=== PATIENT | male | born 1940 | race Hispanic/Latino ===

== ENCOUNTER 2016-11-02 10:22 | Inpatient (IN) | payer MEDICARE, MEDICAID ==
--- NOTE | 2016-11-02 11:27 | C.PDOC ---
History Of Present Illness 76 yo male w/PMHx of TIA, COPD, Seizure ds, dementia, unstable angina, transfer from [facility] [place] for evaluation of Right foot redness, swelling, chronic ulceration. As per transfer paper, direct admission to s/o . Unable to get any history on present illness from patient due to dementia. Although, pt appears awake, c/o mild Right foot pain. Time Seen by Provider: 11/02/16 10:54 Chief Complaint (Nursing): Abnormal Skin Integrity History Per: EMS, Other ([facility] transfer paper) Past Medical History Reviewed: Historical Data, Nursing Documentation, Vital Signs Vital Signs: Last Vital Signs Temp 98 F 11/02/16 16:00 Pulse 96 H 11/02/16 16:00 Resp 18 11/02/16 16:00 BP 94/69 L 11/02/16 16:00 Pulse Ox 97 11/02/16 16:00 - Medical History PMH: Asthma, COPD, Dementia, Pneumonia, Seizures, TIA Denies: Chronic Kidney Disease Family History: States: Unknown Family Hx - Social History Hx Alcohol Use: No Hx Substance Use: No - Immunization History Hx Tetanus Toxoid Vaccination: No Hx Influenza Vaccination: No Hx Pneumococcal Vaccination: No Review Of Systems Review Of Systems: ROS cannot be obtained secondary to pt's inabilty to answer questions. (dementia) Physical Exam - Physical Exam Appears: Well, Non-toxic, No Acute Distress Skin: Warm, Dry, Other (Right foot: diffuse edema and erythema with mild nos edema of dorsal asepct. Chronic appearence ulcers to Right 2nd,4th toes. Scant discahrges noted from web between Right 4th and 5th toes.) Head: Normacephalic Eye(s): bilateral: PERRL Nose: No Flaring Oral Mucosa: Moist, No Drooling Neck: Supple Cardiovascular: Rhythm Regular Respiratory: No Decreased Breath Sounds, No Accessory Muscle Use, No Stridor, No Wheezing Gastrointestinal/Abdominal: Soft, No Tenderness, No Distention, No Guarding Extremity: Capillary Refill (less than 2sec to B/L LEs.), No Deformity, Other (B /L LEs muscle wasting, mild rigidity to Right leg) Neurological/Psych: Other (non-compliant) ED Course And Treatment - Laboratory Results Result Diagrams: 11/02/16 14:44 11/02/16 14:44 Lab Interpretation: No Acute Changes O2 Sat by Pulse Oximetry: 98 Pulse Ox Interpretation: Normal Progress Note: Case discussed with and admission accepted. Disposition - Disposition Disposition: HOSPITALIZED Disposition Time: 15:15 Condition: STABLE - Clinical Impression Clinical Impression: Cellulitis, PVD (peripheral vascular disease)
[2016-11-02 14:52] LABS: BASO # 0.1 K/uL (0.0-0.2); BASO % 0.7 % (0.0-2.0); EOS # 0.1 K/uL (0.0-0.7); EOS % 1.6 % (0.0-4.0); HEMOGLOBIN 13.5 g/dL (12.0-18.0); LYMPH # 2.4 K/uL (1.0-4.3); LYMPH % 29.3 % (20.0-40.0); MEAN CORPUSCULAR HGB CONC 32.4 g/dL (33.0-37.0); MEAN PLATELET VOLUME 6.7 fL (7.2-11.7); MONO # 1.9 K/uL (0.0-0.8); MONO % 23.4 % (0.0-10.0); NEUT # 3.7 K/uL (1.8-7.0); RBC 4.83 Mil/uL (4.40-5.90); RED CELL DISTRIBUTION WIDTH 14.3 % (11.5-14.5)
[2016-11-02 14:59] LABS: WHITE BLOOD COUNT 8.1 K/uL (4.8-10.8)
[2016-11-02 15:00] LABS: GFR AFRICAN-AMERICAN > 60; GFR NON-AFRICAN AMERICAN > 60; MEAN CELL VOLUME 86.4 fL (80.0-94.0); PLATELET COUNT 240 K/uL (130-400)
[2016-11-02 15:01] LABS: BLOOD UREA NITROGEN 9 mg/dL (9-20); CALCIUM 8.3 mg/dl (8.6-10.4)
[2016-11-02 15:12] LABS: CARBAMAZEPINE < 3.0 ug/mL (4.0-12.0)
[2016-11-02 15:15] LABS: VALPROIC ACID < 10.0 ug/mL (50.0-100.0)
[2016-11-02 15:23] LABS: LYMPHOCYTE 25 % (20-40); MONOCYTE 14 % (0-10); NEUTROPHIL 61 % (50-75); TOTAL CELLS COUNTED 100
[2016-11-02 15:24] LABS: PLATELET ESTIMATE NORMAL (NORMAL)
[2016-11-02] MEDS ORDERED: Magnesium Hydroxide Susp 30 ml UD PO PRN (17:21)
[2016-11-02] MEDS ORDERED: Sodium Chloride 0.9% 1,000 ML IV SCH (17:30)
[2016-11-02] MEDS: Valproic Acid 250 mg/5 ml UD Cup PO SCH ×2 (19:13→22:22)
[2016-11-02] MEDS: Sodium Chloride 0.9% 1,000 ML IV SCH (19:15)
[2016-11-02] MEDS: carBAMazepine 100 mg/5 ml Oral Susp (450 ml) PO SCH (19:15)
[2016-11-02] MEDS: Piperacill/Tazo 3.375gm in Dex 3.375 GM/50 ML BAG IVPB SCH (19:16)
--- NOTE | 2016-11-02 20:57 | CP.PCM.CON ---
History of Present Illness - History of Present Illness History of Present Illness: Consulted for Pre Op cardiac ECHO and EKG ordered Past Patient History - Infectious Disease Hx of Infectious Diseases: None - Past Medical History & Family History Past Medical History?: Yes - Past Social History Smoking Status: Never Smoked - CARDIAC Hx Cardiac Disorders: Yes Hx Angina: Yes Other/Comment: ischemia. Hx of severe PVD. cellulitis of RLE s/p angiogram. ischemic heart disease - PULMONARY Hx Asthma: Yes Hx Chronic Obstructive Pulmonary Disease (COPD): Yes Hx Pneumonia: Yes - NEUROLOGICAL Hx Dementia: Yes Hx Seizures: Yes Hx Transient Ischemic Attacks (TIA): Yes - HEENT Hx HEENT Problems: Yes Other/Comment: RT EYELID DROOP - RENAL Hx Chronic Kidney Disease: No - ENDOCRINE/METABOLIC Hx Endocrine Disorders: No - HEMATOLOGICAL/ONCOLOGICAL Hx Blood Disorders: No - INTEGUMENTARY Hx Dermatological Problems: No - MUSCULOSKELETAL/RHEUMATOLOGICAL Hx Musculoskeletal Disorders: Yes Hx Falls: Yes Hx Unsteady Gait: Yes - GASTROINTESTINAL Hx Gastrointestinal Disorders: No - GENITOURINARY/GYNECOLOGICAL Hx Genitourinary Disorders: Yes Hx Incontinence: Yes - PSYCHIATRIC Hx Substance Use: No - SURGICAL HISTORY Hx Surgeries: No Other/Comment: angiogram sometime in 2017 - ANESTHESIA Hx Anesthesia: Yes Hx Anesthesia Reactions: No Hx Malignant Hyperthermia: No Meds Allergies/Adverse Reactions: Allergies Allergy/AdvReac Type Severity Reaction Status Date / Time No Known Allergies Allergy Verified 11/02/16 10:46 - Medications Medications: Current Medications Bisacodyl (Dulcolax) 10 mg RC PRN PRN PRN Reason: Constipation Carbamazepine (Tegretol) 100 mg PO TID [facility] Last Admin: 11/02/16 19:15 Dose: 100 mg Docusate Sodium (Colace) 200 mg PO DAILY [facility] Heparin Sodium (Porcine) (Heparin) 5,000 units SC Q12 [facility] Sodium Chloride (Sodium Chloride 0.9%) 1,000 mls @ 80 mls/hr IV .[id number] [facility] Last Admin: 11/02/16 19:15 Dose: 80 mls/hr Piperacillin Sod/Tazobactam Sod (Zosyn 3.375 Gm Iv Premix) 3.375 gm in 50 mls @ 100 mls/hr IVPB Q6H [facility] Last Admin: 11/02/16 19:16 Dose: 100 mls/hr Magnesium Hydroxide (Milk Of Magnesia) ml PO PRN PRN PRN Reason: Constipation Rosuvastatin Calcium (Crestor) 5 mg PO HS [facility] Valproate Sodium (Depakene Oral Soln) 250 mg PO QID [facility] Last Admin: 11/02/16 19:13 Dose: 250 mg Results - Vital Signs Recent Vital Signs: Last Vital Signs Temp 98 F 11/02/16 16:00 Pulse 96 H 11/02/16 16:00 Resp 18 11/02/16 16:00 BP 94/69 L 11/02/16 16:00 Pulse Ox 98 11/02/16 19:09 - Labs Result Diagrams: 11/02/16 14:44 11/02/16 14:44 Labs: Laboratory Results - last 24 hr 11/02/16 11/02/16 11/02/16 14:44 14:44 14:44 WBC 8.1 D RBC 4.83 Hgb 13.5 Hct 41.7 MCV 86.4 D MCH 28.0 MCHC 32.4 L RDW 14.3 Plt Count 240 D MPV 6.7 L Neut % (Auto) 45.0 L Lymph % (Auto) 29.3 [place] % (Auto) 23.4 H Eos % (Auto) 1.6 Baso % (Auto) 0.7 Neut # 3.7 Lymph # 2.4 [place] # 1.9 H Eos # 0.1 Baso # 0.1 Neutrophils % (Manual) 61 Lymphocytes % (Manual) 25 Monocytes % (Manual) 14 H Platelet Estimate Normal RBC Morphology Normal Sodium 139 Potassium 3.8 Chloride 99 Carbon Dioxide 27 Anion Gap 17 BUN 9 Creatinine 0.6 L Est GFR ( Amer) > 60 Est GFR (Non-Af Amer) > 60 Random Glucose 89 Calcium 8.3 L Valproic Acid < 10.0 L Carbamazepine < 3.0 L
--- NOTE | 2016-11-02 21:03 | CP.PCM.CON ---
History of Present Illness - History of Present Illness History of Present Illness: Surgery: Dr. Sprague Reason for consult: PAD HPI: Patient is a 76 y/o male w/ pmhx of TIA, COPD, Seizure, severe dementia, unstable angina, PAD, bed bound and contracted who [facility] for worsening redness and swelling in the right foot. Patient known to have chronic wounds on the RLE which have been evaluated surgically in the past, about 1.5 years ago. Patient underwent CTA and arterial duplex which showed bilateral LE moderate to severe PAD. Patient was originally scheduled to undergo angio however was cancelled. History obtained from prior records due to severity of dementia. Patient nonverbal and does not respond to questioning. PMH: TIA, COPD, Seizure, severe dementia, unstable angina, PAD, bed bound and contracted PSH: unknown Social: permanent resident at [facility] Review of Systems - Review of Systems Systems not reviewed;Unavailable: Dementia Past Patient History - Infectious Disease Hx of Infectious Diseases: None - Past Medical History & Family History Past Medical History?: Yes - Past Social History Smoking Status: Never Smoked - CARDIAC Hx Cardiac Disorders: Yes Hx Angina: Yes Other/Comment: ischemia. Hx of severe PVD. cellulitis of RLE s/p angiogram. ischemic heart disease - PULMONARY Hx Asthma: Yes Hx Chronic Obstructive Pulmonary Disease (COPD): Yes Hx Pneumonia: Yes - NEUROLOGICAL Hx Dementia: Yes Hx Seizures: Yes Hx Transient Ischemic Attacks (TIA): Yes - HEENT Hx HEENT Problems: Yes Other/Comment: RT EYELID DROOP - RENAL Hx Chronic Kidney Disease: No - ENDOCRINE/METABOLIC Hx Endocrine Disorders: No - HEMATOLOGICAL/ONCOLOGICAL Hx Blood Disorders: No - INTEGUMENTARY Hx Dermatological Problems: No - MUSCULOSKELETAL/RHEUMATOLOGICAL Hx Musculoskeletal Disorders: Yes Hx Falls: Yes Hx Unsteady Gait: Yes - GASTROINTESTINAL Hx Gastrointestinal Disorders: No - GENITOURINARY/GYNECOLOGICAL Hx Genitourinary Disorders: Yes Hx Incontinence: Yes - PSYCHIATRIC Hx Substance Use: No - SURGICAL HISTORY Hx Surgeries: No Other/Comment: angiogram sometime in 2017 - ANESTHESIA Hx Anesthesia: Yes Hx Anesthesia Reactions: No Hx Malignant Hyperthermia: No Meds Allergies/Adverse Reactions: Allergies Allergy/AdvReac Type Severity Reaction Status Date / Time No Known Allergies Allergy Verified 11/02/16 10:46 - Medications Medications: Current Medications Bisacodyl (Dulcolax) 10 mg RC PRN PRN PRN Reason: Constipation Carbamazepine (Tegretol) 100 mg PO TID [facility] Last Admin: 11/02/16 19:15 Dose: 100 mg Docusate Sodium (Colace) 200 mg PO DAILY [facility] Heparin Sodium (Porcine) (Heparin) 5,000 units SC Q12 [facility] Sodium Chloride (Sodium Chloride 0.9%) 1,000 mls @ 80 mls/hr IV .[id number] [facility] Last Admin: 11/02/16 19:15 Dose: 80 mls/hr Piperacillin Sod/Tazobactam Sod (Zosyn 3.375 Gm Iv Premix) 3.375 gm in 50 mls @ 100 mls/hr IVPB Q6H [facility] Last Admin: 11/02/16 19:16 Dose: 100 mls/hr Magnesium Hydroxide (Milk Of Magnesia) ml PO PRN PRN PRN Reason: Constipation Rosuvastatin Calcium (Crestor) 5 mg PO HS [facility] Valproate Sodium (Depakene Oral Soln) 250 mg PO QID [facility] Last Admin: 11/02/16 19:13 Dose: 250 mg Physical Exam - Constitutional Appears: Cachectic, Chronically Ill - Head Exam Head Exam: ATRAUMATIC, NORMOCEPHALIC - ENT Exam ENT Exam: Mucous Membranes Dry - Respiratory Exam Respiratory Exam: absent: Respiratory Distress - Cardiovascular Exam Cardiovascular Exam: REGULAR RHYTHM. absent: Tachycardia - Extremities Exam Extremities exam: Negative for: calf tenderness Additional comments: extremities thin, skin pale. RLE erythematous changes up to ankle/forefoot with necrotic 2nd and 5th toe. No foul odor or drainage. - Psychiatric Exam Additional comments: demented - Skin Skin Exam: Erythema Results - Vital Signs Recent Vital Signs: Last Vital Signs Temp 98 F 11/02/16 16:00 Pulse 96 H 11/02/16 16:00 Resp 18 11/02/16 16:00 BP 94/69 L 11/02/16 16:00 Pulse Ox 98 11/02/16 19:09 - Labs Result Diagrams: 11/02/16 14:44 11/02/16 14:44 Labs: Laboratory Results - last 24 hr 11/02/16 11/02/16 11/02/16 14:44 14:44 14:44 WBC 8.1 D RBC 4.83 Hgb 13.5 Hct 41.7 MCV 86.4 D MCH 28.0 MCHC 32.4 L RDW 14.3 Plt Count 240 D MPV 6.7 L Neut % (Auto) 45.0 L Lymph % (Auto) 29.3 [place] % (Auto) 23.4 H Eos % (Auto) 1.6 Baso % (Auto) 0.7 Neut # 3.7 Lymph # 2.4 [place] # 1.9 H Eos # 0.1 Baso # 0.1 Neutrophils % (Manual) 61 Lymphocytes % (Manual) 25 Monocytes % (Manual) 14 H Platelet Estimate Normal RBC Morphology Normal Sodium 139 Potassium 3.8 Chloride 99 Carbon Dioxide 27 Anion Gap 17 BUN 9 Creatinine 0.6 L Est GFR ( Amer) > 60 Est GFR (Non-Af Amer) > 60 Random Glucose 89 Calcium 8.3 L Valproic Acid < 10.0 L Carbamazepine < 3.0 L Assessment & Plan - Assessment and Plan (Free Text) Assessment: 76 y/o male w/ PAD and 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 Sprague [facility] PGY3
--- NOTE | 2016-11-02 23:34 | CP.PCM.HP ---
History of Present Illness - History of Present Illness History of Present Illness: HPI: Patient is a 76 y/o male w/ pmhx of TIA, COPD, Seizure, severe dementia, unstable angina, PAD, bed bound and contracted who presents from custodial for worsening redness and swelling in the right foot. Patient known to have chronic wounds on the RLE which have been evaluated surgically in the past, about 1.5 years ago. Patient underwent CTA and arterial duplex which showed bilateral LE moderate to severe PAD. Patient was originally scheduled to undergo angio however was cancelled. History obtained from prior records due to severity of dementia. Patient nonverbal and does not respond to questioning. PMH: TIA, COPD, Seizure, severe dementia, unstable angina, PAD, bed bound and contracted PSH: unknown Social: [facility] [place] Present on Admission - Present on Admission Any Indicators Present on Admission: Yes Review of Systems - Review of Systems Systems not reviewed;Unavailable: Acuity of Condition - Constitutional Constitutional: Fatigue, Lethargy - EENT Nose/Mouth/Throat: absent: As Per HPI, Epistaxis, Nasal Congestion, Nasal Discharge, Nasal Obstruction, Nasal Trauma, Nose Pain, Post Nasal Drip, Sinus Pain, Sinus Pressure, Bleeding Gums, Change in Voice, Dental Pain, Dry Mouth, Dysphagia, Halitosis, Hoarsness, Lip Swelling, Mouth Lesions, Mouth Pain, Odynophagia, Sore Throat, Throat Swelling, Tongue Swelling, Facial Pain, Neck Pain, Neck Mass, Other - Cardiovascular Cardiovascular: Dyspnea on Exertion, Leg Ulcers - Respiratory Respiratory: absent: As Per HPI, Cough, Dyspnea, Hemoptysis, Dyspnea on Exertion , Wheezing, Snoring, Stridor, Pain on Inspiration, Chest Congestion, Excessive Mucous Production, Change in Mucous Color, Pain with Coughing, Other - Gastrointestinal Gastrointestinal: absent: As Per HPI, Abdominal Pain, Belching, Bloating, Change in Bowel Habits, Change in Stool Character, Coffee Ground Emesis, Constipation, Cramping, Diarrhea, Dyspepsia, Dysphagia, Early Satiety, Excessive Flatus, Fecal Incontinence, Heartburn, Hematemesis, Hematochezia, Loose Stools, Melena, Nausea, Odynophagia, Temesmus, Vomiting, Other - Genitourinary Genitourinary: absent: As Per HPI, Change in Urinary Stream, Difficulty Urinating, Dysuria, Flank Pain, Hematuria, Pyuria, Nocturia, Urinary Incontinence, Urinary Frequency, Urinary Hesitance, Urinary Urgency, Voiding Freq/Small Amts, Freq UTI, Hx Renal/Bladder Calculi, Hx /Renal Surgery, Bladder Distension, Other - Integumentary Integumentary: absent: As Per HPI, Acne, Alopecia, Bleeding Lesions, Change in Hair, Change in Nails, Change in Pigmentation, Changing Lesions, Dry Skin, Erythema, Furuncle, Hirsutism, Lesions, New Lesions, Non-Healing Lesions, Photosensitivity, Pruritus, Rash, Skin Pain, Skin Ulcer, Sores, Striae, Swelling , Unusual Bruising, Wounds, Jaundice, Other - Neurological Neurological: absent: As Per HPI, Abnormal Gait, Abnormal Hearing, Abnormal Movements, Abnormal Speech, Behavioral Changes, Burning Sensations, Confusion, Convulsions, Disequilibrium, Dizziness, Numbness, Focal Weakness, Frequent Falls , Headaches, Lack of Coordination, Loss of Vision, Memory Loss, Paresthesias, Radicular Pain, Restless Legs, Sensory Deficit, Syncope, Tingling, Tremor, Vertigo, Weakness, Other Visual Disturbances, Other Past Patient History - Infectious Disease Hx of Infectious Diseases: None - Past Medical History & Family History Past Medical History?: Yes - Past Social History Smoking Status: Never Smoked - CARDIAC Hx Cardiac Disorders: Yes Hx Angina: Yes Other/Comment: ischemia. Hx of severe PVD. cellulitis of RLE s/p angiogram. ischemic heart disease - PULMONARY Hx Asthma: Yes Hx Chronic Obstructive Pulmonary Disease (COPD): Yes Hx Pneumonia: Yes - NEUROLOGICAL Hx Dementia: Yes Hx Seizures: Yes Hx Transient Ischemic Attacks (TIA): Yes - HEENT Hx HEENT Problems: Yes Other/Comment: RT EYELID DROOP - RENAL Hx Chronic Kidney Disease: No - ENDOCRINE/METABOLIC Hx Endocrine Disorders: No - HEMATOLOGICAL/ONCOLOGICAL Hx Blood Disorders: No - INTEGUMENTARY Hx Dermatological Problems: No - MUSCULOSKELETAL/RHEUMATOLOGICAL Hx Musculoskeletal Disorders: Yes Hx Falls: Yes Hx Unsteady Gait: Yes - GASTROINTESTINAL Hx Gastrointestinal Disorders: No - GENITOURINARY/GYNECOLOGICAL Hx Genitourinary Disorders: Yes Hx Incontinence: Yes - PSYCHIATRIC Hx Substance Use: No - SURGICAL HISTORY Hx Surgeries: No Other/Comment: angiogram sometime in 2017 - ANESTHESIA Hx Anesthesia: Yes Hx Anesthesia Reactions: No Hx Malignant Hyperthermia: No Meds Allergies/Adverse Reactions: Allergies Allergy/AdvReac Type Severity Reaction Status Date / Time No Known Allergies Allergy Verified 11/02/16 10:46 Physical Exam - Constitutional Appears: No Acute Distress - Head Exam Head Exam: ATRAUMATIC, NORMAL INSPECTION, NORMOCEPHALIC - Eye Exam Eye Exam: EOMI, Normal appearance, PERRL Pupil Exam: NORMAL ACCOMODATION, PERRL - Cardiovascular Exam Cardiovascular Exam: REGULAR RHYTHM - GI/Abdominal Exam GI & Abdominal Exam: Normal Bowel Sounds, Soft. absent: Tenderness - Rectal Exam Rectal Exam: Deferred Results - Vital Signs Recent Vital Signs: Last Vital Signs Temp 98 F 11/02/16 22:00 Pulse 84 11/02/16 22:00 Resp 18 11/02/16 22:00 BP 99/67 L 11/02/16 22:00 Pulse Ox 100 11/02/16 22:00 - Labs Result Diagrams: 11/04/16 06:59 11/04/16 06:59 Labs: Laboratory Results - last 24 hr 11/02/16 11/02/16 11/02/16 14:44 14:44 14:44 WBC 8.1 D RBC 4.83 Hgb 13.5 Hct 41.7 MCV 86.4 D MCH 28.0 MCHC 32.4 L RDW 14.3 Plt Count 240 D MPV 6.7 L Neut % (Auto) 45.0 L Lymph % (Auto) 29.3 [place] % (Auto) 23.4 H Eos % (Auto) 1.6 Baso % (Auto) 0.7 Neut # 3.7 Lymph # 2.4 [place] # 1.9 H Eos # 0.1 Baso # 0.1 Neutrophils % (Manual) 61 Lymphocytes % (Manual) 25 Monocytes % (Manual) 14 H Platelet Estimate Normal RBC Morphology Normal Sodium 139 Potassium 3.8 Chloride 99 Carbon Dioxide 27 Anion Gap 17 BUN 9 Creatinine 0.6 L Est GFR ( Amer) > 60 Est GFR (Non-Af Amer) > 60 POC Glucose (mg/dL) Random Glucose 89 Calcium 8.3 L Valproic Acid < 10.0 L Carbamazepine < 3.0 L 11/02/16 21:28 WBC RBC Hgb Hct MCV MCH MCHC RDW Plt Count MPV Neut % (Auto) Lymph % (Auto) [place] % (Auto) Eos % (Auto) Baso % (Auto) Neut # Lymph # [place] # Eos # Baso # Neutrophils % (Manual) Lymphocytes % (Manual) Monocytes % (Manual) Platelet Estimate RBC Morphology Sodium Potassium Chloride Carbon Dioxide Anion Gap BUN Creatinine Est GFR ( Amer) Est GFR (Non-Af Amer) POC Glucose (mg/dL) 92 Random Glucose Calcium Valproic Acid Carbamazepine Assessment & Plan (1) Cellulitis Status: Acute (2) PVD (peripheral vascular disease) Status: Chronic (3) Cellulitis of right foot Status: Acute (4) Right foot ulcer Status: Acute (5) COPD (chronic obstructive pulmonary disease) Status: Chronic Priority: High (6) Seizure Status: Chronic
[2016-11-03] MEDS: Piperacill/Tazo 3.375gm in Dex 3.375 GM/50 ML BAG IVPB SCH ×4 (00:59→18:25)
[2016-11-03] MEDS: Sodium Chloride 0.9% 1,000 ML IV SCH ×3 (06:00→19:00)
[2016-11-03 08:13] LABS: BASO % 0.6 % (0.0-2.0); EOS # 0.1 K/uL (0.0-0.7); EOS % 1.7 % (0.0-4.0); HEMOGLOBIN 13.2 g/dL (12.0-18.0); LYMPH # 2.1 K/uL (1.0-4.3); MEAN CELL VOLUME 86.1 fL (80.0-94.0); MEAN CORPUSCULAR HEMOGLOBIN 28.4 pg (27.0-31.0); MEAN CORPUSCULAR HGB CONC 32.9 g/dL (33.0-37.0); MEAN PLATELET VOLUME 6.7 fL (7.2-11.7); MONO # 1.4 K/uL (0.0-0.8); MONO % 19.3 % (0.0-10.0); NEUT # 3.6 K/uL (1.8-7.0); NEUT % 49.4 % (50.0-75.0); NRBC % 0.1 % (0.0-2.0); RBC 4.65 Mil/uL (4.40-5.90); RED CELL DISTRIBUTION WIDTH 14.3 % (11.5-14.5); WHITE BLOOD COUNT 7.2 K/uL (4.8-10.8)
--- NOTE | 2016-11-03 08:32 | RAD ---
PROCEDURE: Right Foot Radiographs. HISTORY: pain r/o osteo COMPARISON: None. FINDINGS: BONES: The 1st distal phalanx is partially amputated. No periosteal reaction or cortical destruction to suggest osteomyelitis is noted. No discrete ulcer site is appreciated nor clinically specified. No gas-forming cellulitis suggested. Increased density increased soft tissue swelling over the dorsal and plantar forefoot noted. Prominent hammertoe orientations. Pes cavus No fracture dislocation appreciated Increase sclerosis sesamoid bones -1st metatarsal head level JOINTS: Normal. SOFT TISSUES: As above OTHER FINDINGS: None. IMPRESSION: No periosteal reaction or cortical destruction appreciated to suggest osteomyelitis. Soft tissue swelling consistent with lymphedema and/or cellulitis. No discrete ulcer site appreciated nor clinically specified. Postop changes great toe -most distal phalanx
[2016-11-03] MEDS ORDERED: Magnesium Hydroxide Susp 30 ml UD PO PRN (08:53)
[2016-11-03 08:54] LABS: BLOOD UREA NITROGEN 7 mg/dL (9-20); GFR AFRICAN-AMERICAN > 60; GFR NON-AFRICAN AMERICAN > 60
[2016-11-03] MEDS: carBAMazepine 100 mg/5 ml Oral Susp (450 ml) PO SCH ×3 (09:45→18:25)
[2016-11-03] MEDS: Valproic Acid 250 mg/5 ml UD Cup PO SCH ×4 (09:45→21:42)
[2016-11-03] MEDS ORDERED: Pneumococcal 23-Valent Vaccine IM ONE (10:00)
--- NOTE | 2016-11-03 10:22 | RAD ---
HISTORY: PRE-OP COMPARISON: 06/14/2015 TECHNIQUE: Chest PA and lateral the labeling is believe incorrect some prior labels. What is marked as right is believe to be the left side of the patient FINDINGS: LUNGS: The left infrahilar peribronchial thickening and minimal probable bronchiectatic changes are similar appearing Volume loss right hemithorax with extensive thoracotomy changes and hardware are suggested no gross hardware fracture or interruption of the cerclage wires is seen. The deformity and right apical pleural parenchymal opacities with right apical bullous blood emphysematous like changes are similar. No complicating pneumothorax seen. The etiology for the right thoracotomy is unknown. Posttraumatic changes about the right shoulder are however noted. PLEURA: No significant pleural effusion identified. No pneumothorax apparent. Other findings as above CARDIOVASCULAR: Normal. OSSEOUS STRUCTURES: Extensive deformity right rib cage, deformity proximal right humerus extraosseous well corticated ossifications and all of the findings about the right shoulder are consistent with remote trauma. VISUALIZED UPPER ABDOMEN: Normal. OTHER FINDINGS: None. IMPRESSION: No interval pathology seen. No interval infiltrate appreciated Status post right thoracotomy and chronic right apical pleural parenchymal pathology. Right shoulder posttraumatic changes -stable
--- NOTE | 2016-11-03 16:04 | CP.PCM.PN ---
Subjective - Date & Time of Evaluation Date of Evaluation: 11/03/16 Time of Evaluation: 07:00 - Subjective Subjective: VASCULAR SURGERY PROGRESS NOTE FOR DR. SHEN Patient seen and examined at bedside. Patient did not respond to questioning due to dementia. Dressings were changed this AM. Objective - Vital Signs/Intake and Output Vital Signs (last 24 hours): Temp Pulse Resp BP Pulse Ox 98.5 F 90 19 129/56 L 96 11/03/16 08:35 11/03/16 08:35 11/03/16 08:35 11/03/16 08:35 11/03/16 08:35 Intake and Output: 11/03/16 11/03/16 06:59 18:59 Intake Total 980 700 Output Total 0 Balance 980 700 - Medications Medications: Current Medications Acetaminophen (Tylenol 325mg Tab) 650 mg PO Q6 PRN PRN Reason: Pain, severe (8-10) Last Admin: 11/03/16 15:17 Dose: 650 mg Bisacodyl (Dulcolax) 10 mg [place] DAILY PRN PRN Reason: SEVERE CONSTIPATION Carbamazepine (Tegretol) 100 mg PO TID [facility] Last Admin: 11/03/16 13:05 Dose: 100 mg Docusate Sodium (Colace) 200 mg PO DAILY [facility] Last Admin: 11/03/16 09:45 Dose: 200 mg Heparin Sodium (Porcine) (Heparin) 5,000 units SC Q12 [facility] Last Admin: 11/03/16 09:45 Dose: 5,000 units Sodium Chloride (Sodium Chloride 0.9%) 1,000 mls @ 80 mls/hr IV .[id number] [facility] Last Admin: 11/03/16 09:47 Dose: 80 mls/hr Piperacillin Sod/Tazobactam Sod (Zosyn 3.375 Gm Iv Premix) 3.375 gm in 50 mls @ 100 mls/hr IVPB Q6H [facility] Last Admin: 11/03/16 12:41 Dose: 100 mls/hr Magnesium Hydroxide (Milk Of Magnesia) 30 ml PO HS PRN PRN Reason: Constipation Rosuvastatin Calcium (Crestor) 5 mg PO HS [facility] Last Admin: 11/02/16 22:08 Dose: 5 mg Valproate Sodium (Depakene Oral Soln) 250 mg PO QID [facility] Last Admin: 11/03/16 13:05 Dose: 250 mg - Labs Labs: 11/03/16 08:04 11/03/16 08:04 - Constitutional Appears: Non-toxic, No Acute Distress - Respiratory Exam Respiratory Exam: NORMAL BREATHING PATTERN. absent: Respiratory Distress - Cardiovascular Exam Cardiovascular Exam: +S1, +S2 - Extremities Exam Additional comments: contracted necrotic 2nd and 5th toe on right foot faint pulses palpable in R LE - Neurological Exam Neurological Exam: Alert, Awake. absent: Oriented x3 Assessment and Plan - Assessment and Plan (Free Text) Assessment: 76yo M with PMhx of TIA, COPD, seizure, severe dementia, unstable angina, PAD, bed bound and contracted with PAD and dry gangrene of 2nd and 5th toes with cellulitic changes - Afebrile, VSS - Peripheral angio tomorrow by Dr. Shen - NPO past midnight - Heparin held tomorrow AM - Will obtain consent from public guardian tomorrow - Discussed plan with Dr. Celestine Terrell PGY-3
--- NOTE | 2016-11-03 16:48 | CP.PCM.PN ---
Subjective - Date & Time of Evaluation Date of Evaluation: 11/03/16 Time of Evaluation: 16:43 - Subjective Subjective: Reason for consult: Pre Operative Cardiac HPI: Patient is a 76 y/o male w/ pmhx of TIA, COPD, Seizure, severe dementia, unstable angina, PAD, bed bound and contracted who presents from correction for worsening redness and swelling in the right foot. Patient known to have chronic wounds on the RLE which have been evaluated surgically in the past, about 1.5 years ago. Patient underwent CTA and arterial duplex which showed bilateral LE moderate to severe PAD. Patient was originally scheduled to undergo angio however was cancelled. History obtained from prior records due to severity of dementia. Patient nonverbal and does not respond to questioning. PMH: TIA, COPD, Seizure, severe dementia, unstable angina, PAD, bed bound and contracted PSH: unknown Social: permanent resident at [facility] Review of Systems - Review of Systems Systems not reviewed;Unavailable: Dementia Past Patient History - Infectious Disease Hx of Infectious Diseases: None - Past Medical History & Family History Past Medical History?: Yes - Past Social History Smoking Status: Never Smoked - CARDIAC Hx Cardiac Disorders: Yes Hx Angina: Yes Other/Comment: ischemia. Hx of severe PVD. cellulitis of RLE s/p angiogram. ischemic heart disease - PULMONARY Hx Asthma: Yes Hx Chronic Obstructive Pulmonary Disease (COPD): Yes Hx Pneumonia: Yes - NEUROLOGICAL Hx Dementia: Yes Hx Seizures: Yes Hx Transient Ischemic Attacks (TIA): Yes - HEENT Hx HEENT Problems: Yes Other/Comment: RT EYELID DROOP - RENAL Hx Chronic Kidney Disease: No - ENDOCRINE/METABOLIC Hx Endocrine Disorders: No - HEMATOLOGICAL/ONCOLOGICAL Hx Blood Disorders: No - INTEGUMENTARY Hx Dermatological Problems: No - MUSCULOSKELETAL/RHEUMATOLOGICAL Hx Musculoskeletal Disorders: Yes Hx Falls: Yes Hx Unsteady Gait: Yes - GASTROINTESTINAL Hx Gastrointestinal Disorders: No - GENITOURINARY/GYNECOLOGICAL Hx Genitourinary Disorders: Yes Hx Incontinence: Yes - PSYCHIATRIC Hx Substance Use: No - SURGICAL HISTORY Hx Surgeries: No Other/Comment: angiogram sometime in 2017 - ANESTHESIA Hx Anesthesia: Yes Hx Anesthesia Reactions: No Hx Malignant Hyperthermia: No Meds Allergies/Adverse Reactions: Allergies Allergy/AdvReac Type Severity Reaction Status Date / Time No Known Allergies Allergy Verified 11/02/16 10:46 - Medications Medications: Current Medications Bisacodyl (Dulcolax) 10 mg RC PRN PRN PRN Reason: Constipation Carbamazepine (Tegretol) 100 mg PO TID [facility] Last Admin: 11/02/16 19:15 Dose: 100 mg Docusate Sodium (Colace) 200 mg PO DAILY [facility] Heparin Sodium (Porcine) (Heparin) 5,000 units SC Q12 [facility] Sodium Chloride (Sodium Chloride 0.9%) 1,000 mls @ 80 mls/hr IV .[id number] [facility] Last Admin: 11/02/16 19:15 Dose: 80 mls/hr Piperacillin Sod/Tazobactam Sod (Zosyn 3.375 Gm Iv Premix) 3.375 gm in 50 mls @ 100 mls/hr IVPB Q6H [facility] Last Admin: 11/02/16 19:16 Dose: 100 mls/hr Magnesium Hydroxide (Milk Of Magnesia) ml PO PRN PRN PRN Reason: Constipation Rosuvastatin Calcium (Crestor) 5 mg PO HS [facility] Valproate Sodium (Depakene Oral Soln) 250 mg PO QID [facility] Last Admin: 11/02/16 19:13 Dose: 250 mg Physical Exam - Constitutional Appears: Cachectic, Chronically Ill - Head Exam Head Exam: ATRAUMATIC, NORMOCEPHALIC - ENT Exam ENT Exam: Mucous Membranes Dry - Respiratory Exam Respiratory Exam: absent: Respiratory Distress - Cardiovascular Exam Cardiovascular Exam: REGULAR RHYTHM. absent: Tachycardia - Extremities Exam Extremities exam: Negative for: calf tenderness Additional comments: extremities thin, skin pale. RLE erythematous changes up to ankle/forefoot with necrotic 2nd and 5th toe. No foul odor or drainage. - Psychiatric Exam Additional comments: demented - Skin Skin Exam: Erythema Objective - Vital Signs/Intake and Output Vital Signs (last 24 hours): Temp Pulse Resp BP Pulse Ox 98.5 F 108 H 108 H 98/57 L 100 11/03/16 08:35 11/03/16 16:08 11/03/16 16:08 11/03/16 16:06 11/03/16 16:06 Intake and Output: 11/03/16 11/03/16 06:59 18:59 Intake Total 980 700 Output Total 0 Balance 980 700 - Medications Medications: Current Medications Acetaminophen (Tylenol 325mg Tab) 650 mg PO Q6 PRN PRN Reason: Pain, severe (8-10) Last Admin: 11/03/16 15:17 Dose: 650 mg Bisacodyl (Dulcolax) 10 mg [place] DAILY PRN PRN Reason: SEVERE CONSTIPATION Carbamazepine (Tegretol) 100 mg PO TID [facility] Last Admin: 11/03/16 13:05 Dose: 100 mg Docusate Sodium (Colace) 200 mg PO DAILY [facility] Last Admin: 11/03/16 09:45 Dose: 200 mg Heparin Sodium (Porcine) (Heparin) 5,000 units SC Q12 [facility] Last Admin: 11/03/16 09:45 Dose: 5,000 units Sodium Chloride (Sodium Chloride 0.9%) 1,000 mls @ 80 mls/hr IV .[id number] [facility] Last Admin: 11/03/16 09:47 Dose: 80 mls/hr Piperacillin Sod/Tazobactam Sod (Zosyn 3.375 Gm Iv Premix) 3.375 gm in 50 mls @ 100 mls/hr IVPB Q6H [facility] Last Admin: 11/03/16 12:41 Dose: 100 mls/hr Magnesium Hydroxide (Milk Of Magnesia) 30 ml PO HS PRN PRN Reason: Constipation Rosuvastatin Calcium (Crestor) 5 mg PO HS [facility] Last Admin: 11/02/16 22:08 Dose: 5 mg Valproate Sodium (Depakene Oral Soln) 250 mg PO QID [facility] Last Admin: 11/03/16 13:05 Dose: 250 mg - Labs Labs: 11/03/16 08:04 11/03/16 08:04 Assessment and Plan - Assessment and Plan (Free Text) Assessment: 76 Male with complex history ECHO images sub optimal. Normal EF No significant valular abnormality Since the Patient going for Endovascular procedure likely the risk is not high but not low either If the benefit out weighs the risk please proceed with the needed therapeutic intervention Thank you
--- NOTE | 2016-11-03 17:38 | CARD ---
APPROVED REPORT EXAM: Two-dimensional and M-mode echocardiogram with Doppler and color Doppler. Other Information Quality : Technically LimitedRhythm : NSR INDICATION Pre-Op COPD Aortic Valve AoV Peak Irmrrhwj18.5cm/Terry Peak GR.3mmHg Mitral Valve MV E Dnjooexi23.2cm/sMV A Vyxcvjut981.4cm/sE/A ratio0.6 TDI E/Lateral E'0.0E/Medial E'0.0 Tricuspid Valve TR Peak Gozyzpiv394ew/sTR Peak Gr.[id number] LEFT VENTRICLE The left ventricle size appears grossly normal. There is normal left ventricular wall thickness. The left ventricular function appears grossly preserved. RIGHT VENTRICLE Right ventricular function cannot be assessed due to poor image quality. ATRIA The left atrium size is normal. The right atrium is not well visualized. AORTIC VALVE The aortic valve is well seen. MITRAL VALVE The mitral valve is normal in structure. The mitral valve is normal in structure. There is no mitral valve regurgitation noted. There is no mitral valve regurgitation noted. TRICUSPID VALVE The tricuspid valve is not well visualized. PULMONIC VALVE The pulmonic valve is not well visualized. GREAT VESSELS The IVC was not visualized. PERICARDIAL EFFUSION There is no gross pericardial effusion. <Conclusion> TECHNICALLY SUBOPTIMAL STUDY DUE TO VERY POOR ACOUSTIC WINDOWS The left ventricle size and systolic function appear grossly normal. Right ventricular function cannot be assessed due to poor image quality. There is no gross pericardial effusion.
[2016-11-04] MEDS: Piperacill/Tazo 3.375gm in Dex 3.375 GM/50 ML BAG IVPB SCH ×4 (00:13→18:02)
[2016-11-04] MEDS: Sodium Chloride 0.9% 1,000 ML IV SCH ×3 (00:13→20:00)
[2016-11-04 07:17] LABS: BASO % 0.8 % (0.0-2.0); EOS # 0.1 K/uL (0.0-0.7); EOS % 2.1 % (0.0-4.0); HEMOGLOBIN 11.5 g/dL (12.0-18.0); LYMPH # 1.8 K/uL (1.0-4.3); LYMPH % 32.1 % (20.0-40.0); MEAN CELL VOLUME 86.2 fL (80.0-94.0); MEAN CORPUSCULAR HEMOGLOBIN 28.2 pg (27.0-31.0); MEAN CORPUSCULAR HGB CONC 32.7 g/dL (33.0-37.0); MEAN PLATELET VOLUME 7.3 fL (7.2-11.7); MONO # 1.2 K/uL (0.0-0.8); MONO % 22.3 % (0.0-10.0); NEUT # 2.4 K/uL (1.8-7.0); NEUT % 42.7 % (50.0-75.0); NRBC % 0.1 % (0.0-2.0); PLATELET COUNT 182 K/uL (130-400); RBC 4.08 Mil/uL (4.40-5.90); RED CELL DISTRIBUTION WIDTH 14.3 % (11.5-14.5); WHITE BLOOD COUNT 5.6 K/uL (4.8-10.8)
[2016-11-04 07:50] LABS: GFR AFRICAN-AMERICAN > 60; GFR NON-AFRICAN AMERICAN > 60
[2016-11-04 07:51] LABS: BLOOD UREA NITROGEN 6 mg/dL (9-20); CALCIUM 7.3 mg/dl (8.6-10.4)
--- NOTE | 2016-11-04 08:14 | CP.PCM.PN ---
Subjective - Date & Time of Evaluation Date of Evaluation: 11/03/16 Time of Evaluation: 20:00 - Subjective Subjective: PT SEEN AND EXAMINED, 76 Male with complex history ECHO images sub optimal. Normal EF No significant valular abnormality Since the Patient going for Endovascular procedure likely the risk is not high but not low either If the benefit out weighs the risk please proceed with the needed therapeutic intervention Objective - Vital Signs/Intake and Output Vital Signs (last 24 hours): Temp Pulse Resp BP Pulse Ox 98.1 F 101 H 20 94/58 L 97 11/04/16 00:00 11/04/16 00:00 11/04/16 00:00 11/04/16 00:00 11/04/16 00:00 Intake and Output: 11/04/16 11/04/16 06:59 18:59 Intake Total 1400 Balance 1400 - Medications Medications: Current Medications Acetaminophen (Tylenol 325mg Tab) 650 mg PO Q6 PRN PRN Reason: Pain, severe (8-10) Last Admin: 11/04/16 05:53 Dose: 650 mg Bisacodyl (Dulcolax) 10 mg [place] DAILY PRN PRN Reason: SEVERE CONSTIPATION Carbamazepine (Tegretol) 100 mg PO TID [facility] Last Admin: 11/03/16 18:25 Dose: 100 mg Docusate Sodium (Colace) 200 mg PO DAILY [facility] Last Admin: 11/03/16 09:45 Dose: 200 mg Heparin Sodium (Porcine) (Heparin) 5,000 units SC Q12 [facility] Last Admin: 11/03/16 21:42 Dose: 5,000 units Sodium Chloride (Sodium Chloride 0.9%) 1,000 mls @ 80 mls/hr IV .[id number] [facility] Last Admin: 11/04/16 08:09 Dose: Not Given Piperacillin Sod/Tazobactam Sod (Zosyn 3.375 Gm Iv Premix) 3.375 gm in 50 mls @ 100 mls/hr IVPB Q6H [facility] Last Admin: 11/04/16 00:13 Dose: 100 mls/hr Magnesium Hydroxide (Milk Of Magnesia) 30 ml PO HS PRN PRN Reason: Constipation Rosuvastatin Calcium (Crestor) 5 mg PO HS [facility] Last Admin: 11/03/16 21:42 Dose: 5 mg Valproate Sodium (Depakene Oral Soln) 250 mg PO QID [facility] Last Admin: 11/03/16 21:42 Dose: 250 mg - Labs Labs: 11/04/16 06:59 11/04/16 06:59 - Constitutional Appears: No Acute Distress - Head Exam Head Exam: ATRAUMATIC, NORMAL INSPECTION, NORMOCEPHALIC - Eye Exam Eye Exam: EOMI, Normal appearance, PERRL Pupil Exam: NORMAL ACCOMODATION, PERRL - Respiratory Exam Respiratory Exam: Clear to Ausculation Bilateral, NORMAL BREATHING PATTERN - Cardiovascular Exam Cardiovascular Exam: REGULAR RHYTHM, +S1, +S2. absent: Murmur - GI/Abdominal Exam GI & Abdominal Exam: Soft, Normal Bowel Sounds. absent: Tenderness Assessment and Plan (1) Cellulitis Status: Acute (2) PVD (peripheral vascular disease) Status: Chronic (3) Cellulitis of right foot Status: Acute (4) Right foot ulcer Status: Acute (5) COPD (chronic obstructive pulmonary disease) Status: Chronic (6) Seizure Status: Chronic - Assessment and Plan (Free Text) Assessment: Patient going for Endovascular procedure likely the risk is not high but not low either If the benefit out weighs the risk please proceed with the needed therapeutic intervention
--- NOTE | 2016-11-04 08:33 | PCM.SURG1 ---
Surgeon's Initial Post Op Note - Surgeon's Notes Surgeon: Darron Line Patrolman: None Type of Anesthesia: Local Pre-Operative Diagnosis: Infection Operative Findings: Patent right cephalic vein Post-Operative Diagnosis: Infection Operation Performed: Right cephalic vein 4F SL 32cm PICC with tip in the prox RA Specimen/Specimens Removed: None Estimated Blood Loss: EBL {In ML}: 1 Date of Surgery/Procedure: 11/04/16 Time of Surgery/Procedure: 08:10
[2016-11-04 08:49] LABS: BANDS 2 % (0-2); EOSINOPHIL 1 % (0-4); LYMPHOCYTE 19 % (20-40); MONOCYTE 17 % (0-10); NEUTROPHIL 61 % (50-75); TOTAL CELLS COUNTED 100
[2016-11-04 08:50] LABS: PLATELET ESTIMATE NORMAL (NORMAL)
[2016-11-04] MEDS: carBAMazepine 100 mg/5 ml Oral Susp (450 ml) PO SCH ×3 (09:47→17:49)
[2016-11-04] MEDS: Valproic Acid 250 mg/5 ml UD Cup PO SCH ×4 (09:47→21:56)
--- NOTE | 2016-11-04 11:05 | CP.PCM.PN ---
Subjective - Date & Time of Evaluation Date of Evaluation: 11/03/16 - Subjective Subjective: S/O OR, AND HE NEEDS R AKA, FRO OR, HER [employer] AGREES, NO SOB Objective - Vital Signs/Intake and Output Vital Signs (last 24 hours): Temp Pulse Resp BP Pulse Ox 98.6 F 61 20 103/56 L 99 11/04/16 09:42 11/04/16 09:42 11/04/16 09:42 11/04/16 09:42 11/04/16 09:42 Intake and Output: 11/04/16 11/04/16 06:59 18:59 Intake Total 1400 Balance 1400 - Medications Medications: Current Medications Acetaminophen (Tylenol 325mg Tab) 650 mg PO Q6 PRN PRN Reason: Pain, severe (8-10) Last Admin: 11/04/16 05:53 Dose: 650 mg Bisacodyl (Dulcolax) 10 mg [place] DAILY PRN PRN Reason: SEVERE CONSTIPATION Carbamazepine (Tegretol) 100 mg PO TID [facility] Last Admin: 11/04/16 09:47 Dose: 100 mg Docusate Sodium (Colace) 200 mg PO DAILY [facility] Last Admin: 11/04/16 09:47 Dose: 200 mg Heparin Sodium (Porcine) (Heparin) 5,000 units SC Q12 [facility] Last Admin: 11/03/16 21:42 Dose: 5,000 units Sodium Chloride (Sodium Chloride 0.9%) 1,000 mls @ 80 mls/hr IV .[id number] [facility] Last Admin: 11/04/16 08:09 Dose: Not Given Piperacillin Sod/Tazobactam Sod (Zosyn 3.375 Gm Iv Premix) 3.375 gm in 50 mls @ 100 mls/hr IVPB Q6H [facility] Last Admin: 11/04/16 07:00 Dose: Not Given Magnesium Hydroxide (Milk Of Magnesia) 30 ml PO HS PRN PRN Reason: Constipation Rosuvastatin Calcium (Crestor) 5 mg PO HS [facility] Last Admin: 11/03/16 21:42 Dose: 5 mg Valproate Sodium (Depakene Oral Soln) 250 mg PO QID [facility] Last Admin: 11/04/16 09:47 Dose: 250 mg - Labs Labs: 11/04/16 06:59 11/04/16 06:59 - Constitutional Appears: Non-toxic, No Acute Distress, Cachectic, Chronically Ill - Head Exam Head Exam: ATRAUMATIC, NORMOCEPHALIC - Eye Exam Eye Exam: Normal appearance - ENT Exam ENT Exam: Mucous Membranes Moist, Normal Exam, Normal Oropharynx, TM's Normal Bilaterally - Respiratory Exam Respiratory Exam: Clear to Ausculation Bilateral, NORMAL BREATHING PATTERN - Cardiovascular Exam Cardiovascular Exam: REGULAR RHYTHM, +S1 - GI/Abdominal Exam GI & Abdominal Exam: Normal Bowel Sounds - Rectal Exam Rectal Exam: NORMAL INSPECTION - Extremities Exam Extremities Exam: Calf Tenderness (DARK ULCERS R FOOT, ABCENT B/L LE) - Neurological Exam Neurological Exam: Abnormal Gait, Altered, Motor Sensory Deficit Assessment and Plan (1) PVD (peripheral vascular disease) Status: Chronic (2) Cellulitis of right foot Status: Acute (3) Right foot ulcer Status: Acute (4) COPD (chronic obstructive pulmonary disease) Status: Chronic (5) Seizure Status: Chronic
[2016-11-04] MEDS: Oxycodone/Acetaminophen 5/325 mg Tab PO PRN (14:18)
[2016-11-04] MEDS ORDERED: Propofol 10 mg/ml Inj (20 ML) ONE (14:57)
[2016-11-04] MEDS ORDERED: Midazolam 2 MG/2 ML VIAL ONE (14:57)
--- NOTE | 2016-11-04 19:11 | CON ---
DATE: 11/04/2016 HISTORY OF PRESENT ILLNESS: The patient has been seen and followed. Was considered today for treatment of his gangrenous right foot. Preprocedure, I was very concerned about the ability to overcome his contracture. We were able to reduce the contracture to the level of approximately 45 degrees, but below this we were unable to bring the knee down to the bed. After the patient has been seen by an anesthesiologist who was present and administered sedation. Based on this finding, the intractable contracture of the right leg, I did not recommend any intervention be undertaken. The safest and best courses, the patient would be right above the mini amputation. I will discuss this with Dr. Ann and with the . Per Sprague Jr., MD
--- NOTE | 2016-11-04 23:07 | CP.PCM.PN ---
Subjective - Date & Time of Evaluation Date of Evaluation: 11/04/16 Time of Evaluation: 10:10 - Subjective Subjective: Patient seen and evaluated No cardiac events noted Comfortable Objective - Vital Signs/Intake and Output Vital Signs (last 24 hours): Temp Pulse Resp BP Pulse Ox 97.5 F L 71 20 128/74 97 11/04/16 16:50 11/04/16 16:50 11/04/16 16:50 11/04/16 16:50 11/04/16 16:50 Intake and Output: 11/04/16 11/05/16 18:59 06:59 Intake Total 470 750 Balance 470 750 - Medications Medications: Current Medications Acetaminophen (Tylenol 325mg Tab) 650 mg PO Q6 PRN PRN Reason: Pain, severe (8-10) Last Admin: 11/04/16 05:53 Dose: 650 mg Bisacodyl (Dulcolax) 10 mg [place] DAILY PRN PRN Reason: SEVERE CONSTIPATION Carbamazepine (Tegretol) 100 mg PO TID [facility] Last Admin: 11/04/16 17:49 Dose: 100 mg Docusate Sodium (Colace) 200 mg PO DAILY [facility] Last Admin: 11/04/16 09:47 Dose: 200 mg Heparin Sodium (Porcine) (Heparin) 5,000 units SC Q12 [facility] Last Admin: 11/03/16 21:42 Dose: 5,000 units Sodium Chloride (Sodium Chloride 0.9%) 1,000 mls @ 80 mls/hr IV .[id number] [facility] Last Admin: 11/04/16 20:00 Dose: Not Given Piperacillin Sod/Tazobactam Sod (Zosyn 3.375 Gm Iv Premix) 3.375 gm in 50 mls @ 100 mls/hr IVPB Q6H [facility] Last Admin: 11/04/16 18:02 Dose: 100 mls/hr Magnesium Hydroxide (Milk Of Magnesia) 30 ml PO HS PRN PRN Reason: Constipation Oxycodone/Acetaminophen (Percocet 5/325 Mg Tab) 1 tab PO Q6H PRN PRN Reason: Pain, moderate (4-7) Stop: 11/07/16 12:18 Last Admin: 11/04/16 14:18 Dose: 1 tab Rosuvastatin Calcium (Crestor) 5 mg PO HS [facility] Last Admin: 11/04/16 21:56 Dose: 5 mg Valproate Sodium (Depakene Oral Soln) 250 mg PO QID [facility] Last Admin: 11/04/16 21:56 Dose: 250 mg - Labs Labs: 11/04/16 06:59 11/04/16 06:59
[2016-11-05] MEDS: Piperacill/Tazo 3.375gm in Dex 3.375 GM/50 ML BAG IVPB SCH ×4 (00:31→18:41)
[2016-11-05] MEDS: Sodium Chloride 0.9% 1,000 ML IV SCH ×2 (04:21→09:30)
[2016-11-05 07:40] LABS: BASO % 0.6 % (0.0-2.0); EOS # 0.1 K/uL (0.0-0.7); HEMOGLOBIN 11.8 g/dL (12.0-18.0); LYMPH # 1.2 K/uL (1.0-4.3); LYMPH % 22.8 % (20.0-40.0); MEAN CELL VOLUME 86.5 fL (80.0-94.0); MEAN CORPUSCULAR HEMOGLOBIN 28.4 pg (27.0-31.0); MEAN CORPUSCULAR HGB CONC 32.9 g/dL (33.0-37.0); MEAN PLATELET VOLUME 7.5 fL (7.2-11.7); MONO # 0.9 K/uL (0.0-0.8); MONO % 16.9 % (0.0-10.0); NEUT # 3.1 K/uL (1.8-7.0); NEUT % 57.7 % (50.0-75.0); NRBC % 0.1 % (0.0-2.0); RBC 4.16 Mil/uL (4.40-5.90); RED CELL DISTRIBUTION WIDTH 14.3 % (11.5-14.5); WHITE BLOOD COUNT 5.4 K/uL (4.8-10.8)
[2016-11-05 07:58] LABS: BLOOD UREA NITROGEN 5 mg/dL (9-20); CALCIUM 7.3 mg/dl (8.6-10.4); GFR AFRICAN-AMERICAN > 60; GFR NON-AFRICAN AMERICAN > 60
--- NOTE | 2016-11-05 10:11 | CP.PCM.PN ---
Subjective - Date & Time of Evaluation Date of Evaluation: 11/05/16 Time of Evaluation: 10:08 - Subjective Subjective: SURGERY NOTE FOR DR. SHEN 76M seen and examined at bedside. Patient is laying in bed, with legs contracted , right greater than left. Hx of dementia. Objective - Vital Signs/Intake and Output Vital Signs (last 24 hours): Temp Pulse Resp BP Pulse Ox 97.5 F L 81 20 104/66 96 11/05/16 08:23 11/05/16 08:23 11/05/16 08:23 11/05/16 08:23 11/05/16 08:23 Intake and Output: 11/05/16 11/05/16 06:59 18:59 Intake Total 1530 Balance 1530 - Medications Medications: Current Medications Acetaminophen (Tylenol 325mg Tab) 650 mg PO Q6 PRN PRN Reason: Pain, severe (8-10) Last Admin: 11/04/16 05:53 Dose: 650 mg Bisacodyl (Dulcolax) 10 mg [place] DAILY PRN PRN Reason: SEVERE CONSTIPATION Carbamazepine (Tegretol) 100 mg PO TID [facility] Last Admin: 11/04/16 17:49 Dose: 100 mg Docusate Sodium (Colace) 200 mg PO DAILY [facility] Last Admin: 11/04/16 09:47 Dose: 200 mg Heparin Sodium (Porcine) (Heparin) 5,000 units SC Q12 [facility] Last Admin: 11/03/16 21:42 Dose: 5,000 units Sodium Chloride (Sodium Chloride 0.9%) 1,000 mls @ 80 mls/hr IV .[id number] [facility] Last Admin: 11/05/16 04:21 Dose: 80 mls/hr Piperacillin Sod/Tazobactam Sod (Zosyn 3.375 Gm Iv Premix) 3.375 gm in 50 mls @ 100 mls/hr IVPB Q6H [facility] Last Admin: 11/05/16 06:16 Dose: 100 mls/hr Magnesium Hydroxide (Milk Of Magnesia) 30 ml PO HS PRN PRN Reason: Constipation Oxycodone/Acetaminophen (Percocet 5/325 Mg Tab) 1 tab PO Q6H PRN PRN Reason: Pain, moderate (4-7) Stop: 11/07/16 12:18 Last Admin: 11/04/16 14:18 Dose: 1 tab Rosuvastatin Calcium (Crestor) 5 mg PO HS [facility] Last Admin: 11/04/16 21:56 Dose: 5 mg Valproate Sodium (Depakene Oral Soln) 250 mg PO QID [facility] Last Admin: 11/04/16 21:56 Dose: 250 mg - Labs Labs: 11/05/16 07:10 11/05/16 07:10 - Constitutional Appears: Non-toxic, No Acute Distress, Other - Cardiovascular Exam Cardiovascular Exam: REGULAR RHYTHM, +S1, +S2 - Extremities Exam Additional comments: lower extremities contracted, unable to straighten legs, necrosis of 2nd/5th toes on right leg. 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 Celestien Lopez, PGY2
[2016-11-05] MEDS ORDERED: Iodixanol 320 mg/ml 150 ml Bottle IV ONE (10:37)
[2016-11-05] MEDS: Valproic Acid 250 mg/5 ml UD Cup PO SCH ×4 (11:05→21:36)
[2016-11-05] MEDS: carBAMazepine 100 mg/5 ml Oral Susp (450 ml) PO SCH ×3 (11:05→18:19)
--- NOTE | 2016-11-05 21:45 | CP.PCM.PN ---
Subjective - Date & Time of Evaluation Date of Evaluation: 11/05/16 - Subjective Subjective: SEEN BY SURGERY AND HAS GANGRE NOUS CHANGES IN R LEG CONTRACTED, FOR OR, NO SOB , NO FEVER,NO COUGH, NO CHEST PAIN Objective - Vital Signs/Intake and Output Vital Signs (last 24 hours): Temp Pulse Resp BP Pulse Ox 99.4 F 98 H 20 120/63 95 11/05/16 16:00 11/05/16 16:00 11/05/16 16:00 11/05/16 16:00 11/05/16 16:00 Intake and Output: 11/05/16 11/06/16 18:59 06:59 Intake Total 920 Balance 920 - Medications Medications: Current Medications Acetaminophen (Tylenol 325mg Tab) 650 mg PO Q6 PRN PRN Reason: Pain, severe (8-10) Last Admin: 11/04/16 05:53 Dose: 650 mg Bisacodyl (Dulcolax) 10 mg [place] DAILY PRN PRN Reason: SEVERE CONSTIPATION Carbamazepine (Tegretol) 100 mg PO TID [facility] Last Admin: 11/05/16 18:19 Dose: 100 mg Docusate Sodium (Colace) 200 mg PO DAILY [facility] Last Admin: 11/05/16 11:02 Dose: 200 mg Heparin Sodium (Porcine) (Heparin) 5,000 units SC Q12 [facility] Last Admin: 11/03/16 21:42 Dose: 5,000 units Piperacillin Sod/Tazobactam Sod (Zosyn 3.375 Gm Iv Premix) 3.375 gm in 50 mls @ 100 mls/hr IVPB Q6H [facility] Last Admin: 11/05/16 18:41 Dose: 100 mls/hr Magnesium Hydroxide (Milk Of Magnesia) 30 ml PO HS PRN PRN Reason: Constipation Oxycodone/Acetaminophen (Percocet 5/325 Mg Tab) 1 tab PO Q6H PRN PRN Reason: Pain, moderate (4-7) Stop: 11/07/16 12:18 Last Admin: 11/04/16 14:18 Dose: 1 tab Rosuvastatin Calcium (Crestor) 5 mg PO HS [facility] Last Admin: 11/04/16 21:56 Dose: 5 mg Valproate Sodium (Depakene Oral Soln) 250 mg PO QID [facility] Last Admin: 11/05/16 18:19 Dose: 250 mg - Labs Labs: 11/05/16 07:10 11/05/16 07:10 - Constitutional Appears: Non-toxic, No Acute Distress, Chronically Ill - Head Exam Head Exam: ATRAUMATIC, NORMAL INSPECTION, NORMOCEPHALIC - ENT Exam ENT Exam: Mucous Membranes Moist - Neck Exam Neck Exam: Normal Inspection - Respiratory Exam Respiratory Exam: Clear to Ausculation Bilateral, NORMAL BREATHING PATTERN - Cardiovascular Exam Cardiovascular Exam: REGULAR RHYTHM, +S1, +S2 - GI/Abdominal Exam GI & Abdominal Exam: Soft, Normal Bowel Sounds - Rectal Exam Rectal Exam: NORMAL INSPECTION - Exam Exam: NORMAL INSPECTION - Extremities Exam Extremities Exam: Tenderness (POOR PULSES, COLD EXTREMITIES) - Neurological Exam Neurological Exam: Abnormal Gait, Altered - Psychiatric Exam Psychiatric exam: Flat Affect - Skin Skin Exam: Intact Assessment and Plan (1) PVD (peripheral vascular disease) Status: Chronic (2) Cellulitis of right foot Status: Acute (3) Right foot ulcer Status: Acute (4) COPD (chronic obstructive pulmonary disease) Status: Chronic (5) Seizure Status: Chronic
--- NOTE | 2016-11-05 22:00 | CP.PCM.PN ---
Subjective - Date & Time of Evaluation Date of Evaluation: 11/05/16 Time of Evaluation: 08:00 - Subjective Subjective: Patient seen and evaluated Comfortable No cardiac events noted Objective - Vital Signs/Intake and Output Vital Signs (last 24 hours): Temp Pulse Resp BP Pulse Ox 99.4 F 98 H 20 120/63 95 11/05/16 16:00 11/05/16 16:00 11/05/16 16:00 11/05/16 16:00 11/05/16 16:00 Intake and Output: 11/05/16 11/06/16 18:59 06:59 Intake Total 920 Balance 920 - Medications Medications: Current Medications Acetaminophen (Tylenol 325mg Tab) 650 mg PO Q6 PRN PRN Reason: Pain, severe (8-10) Last Admin: 11/04/16 05:53 Dose: 650 mg Bisacodyl (Dulcolax) 10 mg [place] DAILY PRN PRN Reason: SEVERE CONSTIPATION Carbamazepine (Tegretol) 100 mg PO TID [facility] Last Admin: 11/05/16 18:19 Dose: 100 mg Docusate Sodium (Colace) 200 mg PO DAILY [facility] Last Admin: 11/05/16 11:02 Dose: 200 mg Heparin Sodium (Porcine) (Heparin) 5,000 units SC Q12 [facility] Last Admin: 11/03/16 21:42 Dose: 5,000 units Piperacillin Sod/Tazobactam Sod (Zosyn 3.375 Gm Iv Premix) 3.375 gm in 50 mls @ 100 mls/hr IVPB Q6H [facility] Last Admin: 11/05/16 18:41 Dose: 100 mls/hr Magnesium Hydroxide (Milk Of Magnesia) 30 ml PO HS PRN PRN Reason: Constipation Oxycodone/Acetaminophen (Percocet 5/325 Mg Tab) 1 tab PO Q6H PRN PRN Reason: Pain, moderate (4-7) Stop: 11/07/16 12:18 Last Admin: 11/04/16 14:18 Dose: 1 tab Rosuvastatin Calcium (Crestor) 5 mg PO HS [facility] Last Admin: 11/05/16 21:47 Dose: Not Given Valproate Sodium (Depakene Oral Soln) 250 mg PO QID [facility] Last Admin: 11/05/16 21:36 Dose: 250 mg - Labs Labs: 11/05/16 07:10 11/05/16 07:10
[2016-11-06] MEDS: Piperacill/Tazo 3.375gm in Dex 3.375 GM/50 ML BAG IVPB SCH ×4 (01:35→18:24)
[2016-11-06] MEDS: Oxycodone/Acetaminophen 5/325 mg Tab PO PRN (02:42)
[2016-11-06 08:12] LABS: INR 1.4
[2016-11-06 08:27] LABS: BLOOD UREA NITROGEN 3 mg/dL (9-20); CALCIUM 7.2 mg/dl (8.6-10.4); GFR AFRICAN-AMERICAN > 60; GFR NON-AFRICAN AMERICAN > 60
[2016-11-06] MEDS: carBAMazepine 100 mg/5 ml Oral Susp (450 ml) PO SCH ×3 (09:18→17:24)
[2016-11-06] MEDS: Valproic Acid 250 mg/5 ml UD Cup PO SCH ×4 (09:18→21:32)
--- NOTE | 2016-11-06 10:52 | US ---
Procedure: Ultrasound and fluoroscopically placed Right upper extremity PICC. Clinical indication: Long-term IV antibiotics. Technique: The relative risks and indications of the procedure were explained to the patient and written informed consent obtained. The patient was placed supine on the angiographic table and the right arm prepped and draped in the usual sterile fashion. A tourniquet was applied to the right axilla. 1% lidocaine was used to anesthetize the skin and soft tissues at the puncture site above the elbow. The right cephalic vein was punctured under direct ultrasound guidance with a micropuncture set. A permanent image was stored. A 0.018 guidewire was advanced centrally and used to measure the length to the SVC/RA junction. A 4 [place] single-lumen PICC, size 32 cm, was advanced to the proximal right atrium under fluoroscopic guidance. The catheter was flushed and secured. The patient tolerated the procedure well. Postprocedure chest image was obtained to ensure location of the catheter tip at the proximal right atrium. Impression: Ultrasound and fluoroscopically placed right upper extremity PICC. A 4 [place] single-lumen PICC, size 32 cm was advanced to the proximal right atrium. PICC ready for use.
[2016-11-06] MEDS ORDERED: Propofol 10 mg/ml Inj (20 ML) ONE (12:07)
[2016-11-06] MEDS ORDERED: Lactated Ringer's 1,000 ML IV ONE (12:10)
[2016-11-06] MEDS ORDERED: Piperacillin/Tazobact 3.375 gm 100 ML IVPB ONE (12:35)
--- NOTE | 2016-11-06 13:37 | PCM.SURG1 ---
Surgeon's Initial Post Op Note - Surgeon's Notes Surgeon: Dr. Sprague Nurse Infection Control: Dr. Terrell PGY3, PGY1, Beth[place] MS3 Type of Anesthesia: General LMA Pre-Operative Diagnosis: RLE cellulitis, PAD Operative Findings: calcified and occluded femoral artery Post-Operative Diagnosis: same Operation Performed: Right Above Knee Aputation Specimen/Specimens Removed: Right Lower Extremity Estimated Blood Loss: EBL {In ML}: 360 Blood Products Given: N/A Drains Used: No Drains Post-Op Condition: Good Date of Surgery/Procedure: 11/06/16 Time of Surgery/Procedure: 12:30
[2016-11-06] MEDS: HYDROmorphone 0.5 mg/0.5 ml ISec IVP PRN ×4 (13:55→14:39)
[2016-11-06] MEDS: Lactated Ringer's 1,000 ML IV SCH ×3 (14:39→23:10)
--- NOTE | 2016-11-06 22:48 | CP.PCM.PN ---
Subjective - Date & Time of Evaluation Date of Evaluation: 11/06/16 - Subjective Subjective: ADMITTED WITH PAD GANGRENE R LEG AND EH UNDERWENT R AKA, HE DID WELL, NO SOB Objective - Vital Signs/Intake and Output Vital Signs (last 24 hours): Temp Pulse Resp BP Pulse Ox 100.2 F H 105 H 18 103/64 95 11/06/16 22:07 11/06/16 15:00 11/06/16 15:00 11/06/16 15:00 11/06/16 15:00 Intake and Output: 11/06/16 11/07/16 18:59 06:59 Intake Total 500 Balance 500 - Medications Medications: Current Medications Acetaminophen (Tylenol 325mg Tab) 650 mg PO Q6 PRN PRN Reason: Pain, severe (8-10) Last Admin: 11/06/16 22:07 Dose: 650 mg Bisacodyl (Dulcolax) 10 mg [place] DAILY PRN PRN Reason: SEVERE CONSTIPATION Carbamazepine (Tegretol) 100 mg PO TID [facility] Last Admin: 11/06/16 17:24 Dose: 100 mg Docusate Sodium (Colace) 200 mg PO DAILY [facility] Last Admin: 11/06/16 09:18 Dose: Not Given Heparin Sodium (Porcine) (Heparin) 5,000 units SC Q12 [facility] Last Admin: 11/03/16 21:42 Dose: 5,000 units Hydromorphone HCl (Dilaudid) 0.5 mg IVP Q6H PRN PRN Reason: Pain, severe (8-10) Piperacillin Sod/Tazobactam Sod (Zosyn 3.375 Gm Iv Premix) 3.375 gm in 50 mls @ 100 mls/hr IVPB Q6H [facility] Last Admin: 11/06/16 18:24 Dose: 100 mls/hr Lactated Ringer's (Lactated Ringer's) 1,000 mls @ 100 mls/hr IV .Q10H [facility] Last Admin: 11/06/16 15:22 Dose: 100 mls/hr Magnesium Hydroxide (Milk Of Magnesia) 30 ml PO HS PRN PRN Reason: Constipation Ondansetron HCl (Zofran Inj) 4 mg IVP Q4 PRN PRN Reason: Nausea/Vomiting Oxycodone/Acetaminophen (Percocet 5/325 Mg Tab) 1 tab PO Q6H PRN PRN Reason: Pain, moderate (4-7) Stop: 11/07/16 12:18 Last Admin: 11/06/16 02:42 Dose: 1 tab Rosuvastatin Calcium (Crestor) 5 mg PO HS [facility] Last Admin: 11/06/16 21:32 Dose: 5 mg Valproate Sodium (Depakene Oral Soln) 250 mg PO QID [facility] Last Admin: 11/06/16 21:32 Dose: 250 mg - Labs Labs: 11/05/16 07:10 11/06/16 07:50 PT 16.0 SECONDS (9.7-12.2) H 11/06/16 07:56 INR 1.4 11/06/16 07:56 APTT 33 SECONDS (21-34) 11/06/16 07:56 - Constitutional Appears: In Acute Distress, Chronically Ill - Head Exam Head Exam: ATRAUMATIC, NORMAL INSPECTION, NORMOCEPHALIC - ENT Exam ENT Exam: Mucous Membranes Moist, Normal Exam, Normal Oropharynx, TM's Normal Bilaterally - Neck Exam Neck Exam: Normal Inspection - Respiratory Exam Respiratory Exam: Clear to Ausculation Bilateral, NORMAL BREATHING PATTERN - Cardiovascular Exam Cardiovascular Exam: REGULAR RHYTHM, +S1, +S2 - GI/Abdominal Exam GI & Abdominal Exam: Soft, Normal Bowel Sounds - Rectal Exam Rectal Exam: NORMAL INSPECTION - Exam Exam: NORMAL INSPECTION - Neurological Exam Neurological Exam: Abnormal Gait, Altered - Psychiatric Exam Psychiatric exam: Normal Mood - Skin Skin Exam: Dry Assessment and Plan (1) PVD (peripheral vascular disease) Status: Chronic (2) Cellulitis of right foot Status: Acute (3) Right foot ulcer Status: Acute (4) COPD (chronic obstructive pulmonary disease) Status: Chronic (5) Seizure Status: Chronic
[2016-11-07] MEDS: Piperacill/Tazo 3.375gm in Dex 3.375 GM/50 ML BAG IVPB SCH ×4 (00:25→18:45)
--- NOTE | 2016-11-07 00:25 | OP ---
PROCEDURE DATE: 11/06/2016 PREOPERATIVE DIAGNOSIS: Gangrene, right foot. POSTOPERATIVE DIAGNOSIS: Gangrene, right foot. PROCEDURE CARRIED OUT: Right above-knee amputation. SURGEON: Per Sprague Jr., MD [employer]OR: *------*. ANESTHESIA: General anesthesia, by Dr. Leblanc. The patient is an elderly man with dementia, right leg contracture, unable to bend it even close to 180 degrees, there remains at least to 45-degree contracture. OPERATIVE FINDINGS: There is adequate vascularity from the tissues *------*the femoral artery was occluded. DESCRIPTION OF PROCEDURE: The patient was given general anesthesia, intravenous antibiotics. Incision was made above the knee. Standard above knee amputation was carried out. After obtaining hemostasis, we approximated the wounds with Monocryl and Vicryl sutures. Skin clips were applied to the skin as well as nylon sutures. Blood loss was 300 mL. OPERATION CARRIED OUT: Right above-knee amputation. Per Sprague Jr., MD cc: Lele Ann MD
[2016-11-07] MEDS: HYDROmorphone 0.5 mg/0.5 ml ISec IVP PRN ×4 (00:36→21:51)
[2016-11-07] MEDS: Lactated Ringer's 1,000 ML IV SCH ×3 (02:35→19:00)
[2016-11-07 07:40] LABS: BASO % 0.4 % (0.0-2.0); EOS % 0.1 % (0.0-4.0); LYMPH # 1.8 K/uL (1.0-4.3); LYMPH % 18.4 % (20.0-40.0); MEAN CELL VOLUME 85.8 fL (80.0-94.0); MEAN CORPUSCULAR HEMOGLOBIN 28.5 pg (27.0-31.0); MEAN CORPUSCULAR HGB CONC 33.3 g/dL (33.0-37.0); MEAN PLATELET VOLUME 7.3 fL (7.2-11.7); MONO # 1.7 K/uL (0.0-0.8); MONO % 17.2 % (0.0-10.0); NEUT # 6.2 K/uL (1.8-7.0); NEUT % 63.9 % (50.0-75.0); RBC 3.45 Mil/uL (4.40-5.90); RED CELL DISTRIBUTION WIDTH 14.9 % (11.5-14.5)
[2016-11-07 07:43] LABS: HEMOGLOBIN 9.8 g/dL (12.0-18.0); WHITE BLOOD COUNT 9.7 K/uL (4.8-10.8)
[2016-11-07 07:47] LABS: ALBUMIN 2.3 g/dL (3.5-5.0)
[2016-11-07 07:50] LABS: GFR AFRICAN-AMERICAN > 60; GFR NON-AFRICAN AMERICAN > 60
[2016-11-07 07:51] LABS: ALT/SGPT 22 U/L (21-72); AST/SGOT 21 U/L (17-59); CALCIUM 7.2 mg/dl (8.6-10.4)
[2016-11-07 07:56] LABS: ALB/GLOB RATIO 0.7 (1.0-2.1); BLOOD UREA NITROGEN < 2 mg/dL (9-20)
[2016-11-07 08:56] VITALS: RESP 20
[2016-11-07] MEDS: carBAMazepine 100 mg/5 ml Oral Susp (450 ml) PO SCH ×3 (09:10→17:41)
[2016-11-07] MEDS: Valproic Acid 250 mg/5 ml UD Cup PO SCH ×4 (09:11→21:48)
--- NOTE | 2016-11-07 09:42 | CP.PCM.PN ---
Subjective - Date & Time of Evaluation Date of Evaluation: 11/07/16 Time of Evaluation: 07:45 - Subjective Subjective: Patient seen and examined this morning at bedside. Right extremity dressings are clean/dry/intact, no strike through noted. Patient resting comfortably in bed. Objective - Vital Signs/Intake and Output Vital Signs (last 24 hours): Temp Pulse Resp BP Pulse Ox 97.5 F L 101 H 20 122/66 96 11/07/16 08:55 11/07/16 08:55 11/07/16 08:55 11/07/16 08:55 11/07/16 08:55 Intake and Output: 11/07/16 11/07/16 06:59 18:59 Intake Total 1600 Output Total 1350 Balance 250 - Medications Medications: Current Medications Acetaminophen (Tylenol 325mg Tab) 650 mg PO Q6 PRN PRN Reason: Pain, severe (8-10) Last Admin: 11/06/16 22:07 Dose: 650 mg Bisacodyl (Dulcolax) 10 mg [place] DAILY PRN PRN Reason: SEVERE CONSTIPATION Carbamazepine (Tegretol) 100 mg PO TID [facility] Last Admin: 11/07/16 09:10 Dose: 100 mg Docusate Sodium (Colace) 200 mg PO DAILY [facility] Last Admin: 11/07/16 09:09 Dose: 200 mg Heparin Sodium (Porcine) (Heparin) 5,000 units SC Q12 [facility] Last Admin: 11/07/16 09:11 Dose: Not Given Hydromorphone HCl (Dilaudid) 0.5 mg IVP Q6H PRN PRN Reason: Pain, severe (8-10) Last Admin: 11/07/16 06:45 Dose: 0.5 mg Piperacillin Sod/Tazobactam Sod (Zosyn 3.375 Gm Iv Premix) 3.375 gm in 50 mls @ 100 mls/hr IVPB Q6H [facility] Last Admin: 11/07/16 06:17 Dose: 100 mls/hr Lactated Ringer's (Lactated Ringer's) 1,000 mls @ 100 mls/hr IV .Q10H [facility] Last Admin: 11/07/16 09:11 Dose: Not Given Magnesium Hydroxide (Milk Of Magnesia) 30 ml PO HS PRN PRN Reason: Constipation Ondansetron HCl (Zofran Inj) 4 mg IVP Q4 PRN PRN Reason: Nausea/Vomiting Oxycodone/Acetaminophen (Percocet 5/325 Mg Tab) 1 tab PO Q6H PRN PRN Reason: Pain, moderate (4-7) Stop: 11/07/16 12:18 Last Admin: 11/06/16 02:42 Dose: 1 tab Rosuvastatin Calcium (Crestor) 5 mg PO HS [facility] Last Admin: 11/06/16 21:32 Dose: 5 mg Valproate Sodium (Depakene Oral Soln) 250 mg PO QID [facility] Last Admin: 11/07/16 09:11 Dose: 250 mg - Labs Labs: 11/07/16 07:15 11/07/16 07:15 PT 16.0 SECONDS (9.7-12.2) H 11/06/16 07:56 INR 1.4 11/06/16 07:56 APTT 33 SECONDS (21-34) 11/06/16 07:56 - Constitutional Appears: No Acute Distress - Eye Exam Eye Exam: Normal appearance - ENT Exam ENT Exam: Mucous Membranes Moist - Respiratory Exam Respiratory Exam: NORMAL BREATHING PATTERN - Cardiovascular Exam Cardiovascular Exam: +S1, +S2 - GI/Abdominal Exam GI & Abdominal Exam: Soft - Extremities Exam Additional comments: Surgical site appears clean/dry/intact - Neurological Exam Neurological Exam: Alert, Awake - Psychiatric Exam Psychiatric exam: Normal Mood - Skin Skin Exam: Dry, Warm Assessment and Plan - Assessment and Plan (Free Text) Assessment: 76M s/p Right above the knee amputation -OK to restart heparin this AM -Keep dressings intact -If bleeding noted please contact surgical supplies sterilizer, do not touch dressings -Medical management per primary -Further recs per Dr. Celestine Shaw PGY2
--- NOTE | 2016-11-07 10:39 | CP.PCM.PN ---
Subjective - Date & Time of Evaluation Date of Evaluation: 11/06/16 Time of Evaluation: 09:20 - Subjective Subjective: Patient seen and evaluated Comfortable No cardiac events noted Objective - Vital Signs/Intake and Output Vital Signs (last 24 hours): Temp Pulse Resp BP Pulse Ox 97.5 F L 101 H 20 122/66 96 11/07/16 08:55 11/07/16 08:55 11/07/16 08:55 11/07/16 08:55 11/07/16 08:55 Intake and Output: 11/07/16 11/07/16 06:59 18:59 Intake Total 1600 Output Total 1350 Balance 250 - Medications Medications: Current Medications Acetaminophen (Tylenol 325mg Tab) 650 mg PO Q6 PRN PRN Reason: Pain, severe (8-10) Last Admin: 11/06/16 22:07 Dose: 650 mg Bisacodyl (Dulcolax) 10 mg [place] DAILY PRN PRN Reason: SEVERE CONSTIPATION Carbamazepine (Tegretol) 100 mg PO TID [facility] Last Admin: 11/07/16 09:10 Dose: 100 mg Docusate Sodium (Colace) 200 mg PO DAILY [facility] Last Admin: 11/07/16 09:09 Dose: 200 mg Heparin Sodium (Porcine) (Heparin) 5,000 units [place] Q12 [facility] Last Admin: 11/07/16 09:11 Dose: Not Given Hydromorphone HCl (Dilaudid) 0.5 mg IVP Q6H PRN PRN Reason: Pain, severe (8-10) Last Admin: 11/07/16 06:45 Dose: 0.5 mg Piperacillin Sod/Tazobactam Sod (Zosyn 3.375 Gm Iv Premix) 3.375 gm in 50 mls @ 100 mls/hr IVPB Q6H [facility] Last Admin: 11/07/16 06:17 Dose: 100 mls/hr Lactated Ringer's (Lactated Ringer's) 1,000 mls @ 100 mls/hr IV .Q10H [facility] Last Admin: 11/07/16 09:11 Dose: Not Given Magnesium Hydroxide (Milk Of Magnesia) 30 ml PO HS PRN PRN Reason: Constipation Ondansetron HCl (Zofran Inj) 4 mg IVP Q4 PRN PRN Reason: Nausea/Vomiting Oxycodone/Acetaminophen (Percocet 5/325 Mg Tab) 1 tab PO Q6H PRN PRN Reason: Pain, moderate (4-7) Stop: 11/07/16 12:18 Last Admin: 11/06/16 02:42 Dose: 1 tab Rosuvastatin Calcium (Crestor) 5 mg PO HS [facility] Last Admin: 11/06/16 21:32 Dose: 5 mg Valproate Sodium (Depakene Oral Soln) 250 mg PO QID [facility] Last Admin: 11/07/16 09:11 Dose: 250 mg - Labs Labs: 11/07/16 07:15 11/07/16 07:15 PT 16.0 SECONDS (9.7-12.2) H 11/06/16 07:56 INR 1.4 11/06/16 07:56 APTT 33 SECONDS (21-34) 11/06/16 07:56
--- NOTE | 2016-11-07 21:59 | CP.PCM.PN ---
Subjective - Date & Time of Evaluation Date of Evaluation: 11/07/16 Time of Evaluation: 13:00 - Subjective Subjective: Patient seen and evaluated Offers no complaints No cardiac events Objective - Vital Signs/Intake and Output Vital Signs (last 24 hours): Temp Pulse Resp BP Pulse Ox 98.4 F 95 H 20 106/53 L 98 11/07/16 20:43 11/07/16 20:43 11/07/16 20:43 11/07/16 20:43 11/07/16 20:43 Intake and Output: 11/07/16 11/08/16 18:59 06:59 Intake Total 925 Output Total 700 Balance 225 - Medications Medications: Current Medications Acetaminophen (Tylenol 325mg Tab) 650 mg PO Q6 PRN PRN Reason: Pain, severe (8-10) Last Admin: 11/06/16 22:07 Dose: 650 mg Bisacodyl (Dulcolax) 10 mg [place] DAILY PRN PRN Reason: SEVERE CONSTIPATION Carbamazepine (Tegretol) 100 mg PO TID [facility] Last Admin: 11/07/16 17:41 Dose: Not Given Docusate Sodium (Colace) 200 mg PO DAILY [facility] Last Admin: 11/07/16 09:09 Dose: 200 mg Heparin Sodium (Porcine) (Heparin) 5,000 units SC Q12 [facility] Last Admin: 11/07/16 21:49 Dose: Not Given Hydromorphone HCl (Dilaudid) 0.5 mg IVP Q6H PRN PRN Reason: Pain, severe (8-10) Last Admin: 11/07/16 21:51 Dose: 0.5 mg Piperacillin Sod/Tazobactam Sod (Zosyn 3.375 Gm Iv Premix) 3.375 gm in 50 mls @ 100 mls/hr IVPB Q6H [facility] Last Admin: 11/07/16 18:45 Dose: 100 mls/hr Lactated Ringer's (Lactated Ringer's) 1,000 mls @ 100 mls/hr IV .Q10H [facility] Last Admin: 11/07/16 19:00 Dose: Not Given Magnesium Hydroxide (Milk Of Magnesia) 30 ml PO HS PRN PRN Reason: Constipation Ondansetron HCl (Zofran Inj) 4 mg IVP Q4 PRN PRN Reason: Nausea/Vomiting Rosuvastatin Calcium (Crestor) 5 mg PO HS [facility] Last Admin: 11/07/16 21:48 Dose: Not Given Valproate Sodium (Depakene Oral Soln) 250 mg PO QID [facility] Last Admin: 11/07/16 21:48 Dose: Not Given - Labs Labs: 11/07/16 07:15 11/07/16 07:15 PT 16.0 SECONDS (9.7-12.2) H 11/06/16 07:56 INR 1.4 11/06/16 07:56 APTT 33 SECONDS (21-34) 11/06/16 07:56
[2016-11-08] MEDS: Lactated Ringer's 1,000 ML IV SCH ×3 (00:13→14:07)
[2016-11-08] MEDS: Piperacill/Tazo 3.375gm in Dex 3.375 GM/50 ML BAG IVPB SCH ×4 (00:13→19:20)
[2016-11-08 08:25] LABS: BASO % 0.5 % (0.0-2.0); EOS # 0.1 K/uL (0.0-0.7); EOS % 0.9 % (0.0-4.0); HEMOGLOBIN 9.7 g/dL (12.0-18.0); LYMPH # 1.5 K/uL (1.0-4.3); MEAN CELL VOLUME 85.5 fL (80.0-94.0); MEAN CORPUSCULAR HEMOGLOBIN 28.4 pg (27.0-31.0); MEAN CORPUSCULAR HGB CONC 33.3 g/dL (33.0-37.0); MEAN PLATELET VOLUME 7.5 fL (7.2-11.7); MONO # 1.6 K/uL (0.0-0.8); MONO % 18.9 % (0.0-10.0); NEUT # 5.2 K/uL (1.8-7.0); NEUT % 61.7 % (50.0-75.0); RBC 3.42 Mil/uL (4.40-5.90); RED CELL DISTRIBUTION WIDTH 15.1 % (11.5-14.5); WHITE BLOOD COUNT 8.5 K/uL (4.8-10.8)
--- NOTE | 2016-11-08 08:57 | CP.PCM.PN ---
Subjective - Date & Time of Evaluation Date of Evaluation: 11/08/16 Time of Evaluation: 07:00 - Subjective Subjective: VASCULAR SURGERY PROGRESS NOTE FOR DR. SHEN Patient seen and examined at bedside. He states that he feels "half and half" and has pain in his shoulder and nose. States that his leg does not bother him. Patient did not allow full physical exam but no drainage on dressing seen. Objective - Vital Signs/Intake and Output Vital Signs (last 24 hours): Temp Pulse Resp BP Pulse Ox 98.5 F 92 H 20 146/76 97 11/08/16 08:39 11/08/16 08:39 11/08/16 08:39 11/08/16 08:39 11/08/16 08:39 Intake and Output: 11/08/16 11/08/16 06:59 18:59 Intake Total 1900 Output Total 1600 Balance 300 - Medications Medications: Current Medications Acetaminophen (Tylenol 325mg Tab) 650 mg PO Q6 PRN PRN Reason: Pain, severe (8-10) Last Admin: 11/06/16 22:07 Dose: 650 mg Bisacodyl (Dulcolax) 10 mg [place] DAILY PRN PRN Reason: SEVERE CONSTIPATION Carbamazepine (Tegretol) 100 mg PO TID [facility] Last Admin: 11/07/16 17:41 Dose: Not Given Docusate Sodium (Colace) 200 mg PO DAILY [facility] Last Admin: 11/07/16 09:09 Dose: 200 mg Heparin Sodium (Porcine) (Heparin) 5,000 units [place] Q12 [facility] Last Admin: 11/07/16 21:49 Dose: Not Given Hydromorphone HCl (Dilaudid) 0.5 mg IVP Q6H PRN PRN Reason: Pain, severe (8-10) Last Admin: 11/07/16 21:51 Dose: 0.5 mg Piperacillin Sod/Tazobactam Sod (Zosyn 3.375 Gm Iv Premix) 3.375 gm in 50 mls @ 100 mls/hr IVPB Q6H [facility] Last Admin: 11/08/16 06:01 Dose: 100 mls/hr Lactated Ringer's (Lactated Ringer's) 1,000 mls @ 100 mls/hr IV .Q10H [facility] Last Admin: 11/08/16 04:14 Dose: Not Given Magnesium Hydroxide (Milk Of Magnesia) 30 ml PO HS PRN PRN Reason: Constipation Ondansetron HCl (Zofran Inj) 4 mg IVP Q4 PRN PRN Reason: Nausea/Vomiting Rosuvastatin Calcium (Crestor) 5 mg PO HS [facility] Last Admin: 11/07/16 21:48 Dose: Not Given Valproate Sodium (Depakene Oral Soln) 250 mg PO QID [facility] Last Admin: 11/07/16 21:48 Dose: Not Given - Labs Labs: 11/08/16 08:05 11/07/16 07:15 PT 16.0 SECONDS (9.7-12.2) H 11/06/16 07:56 INR 1.4 11/06/16 07:56 APTT 33 SECONDS (21-34) 11/06/16 07:56 - Constitutional Appears: Non-toxic, No Acute Distress, Confused - Head Exam Head Exam: ATRAUMATIC, NORMAL INSPECTION - Respiratory Exam Respiratory Exam: NORMAL BREATHING PATTERN. absent: Respiratory Distress - Cardiovascular Exam Cardiovascular Exam: +S1, +S2 - Extremities Exam Additional comments: Dressing clean/dry/intact, right stump tender Assessment and Plan - Assessment and Plan (Free Text) Assessment: 76yo M with PAD s/p right AKA POD#2 - H&H stable from yesterday, Hgb 9.7 today (9.8 yesterday) - Keep dressings intact, if bleeding noted, please page surgical orderly - PT ordered - Further recs per Dr. Celestine Terrell PGY-3
[2016-11-08] MEDS: carBAMazepine 100 mg/5 ml Oral Susp (450 ml) PO SCH ×4 (10:24→17:48)
[2016-11-08] MEDS: Valproic Acid 250 mg/5 ml UD Cup PO SCH ×4 (10:25→21:49)
--- NOTE | 2016-11-08 21:22 | CP.PCM.PN ---
Subjective - Date & Time of Evaluation Date of Evaluation: 11/07/16 - Subjective Subjective: s/p r aka, no fever, no chest pain, no arrythmia, no sob Objective - Vital Signs/Intake and Output Vital Signs (last 24 hours): Temp Pulse Resp BP Pulse Ox 99.1 F 90 20 126/78 95 11/08/16 16:54 11/08/16 16:54 11/08/16 16:54 11/08/16 16:54 11/08/16 16:54 Intake and Output: 11/08/16 11/09/16 18:59 06:59 Intake Total 900 Output Total 900 Balance 0 - Medications Medications: Current Medications Acetaminophen (Tylenol 325mg Tab) 650 mg PO Q6 PRN PRN Reason: Pain, severe (8-10) Last Admin: 11/06/16 22:07 Dose: 650 mg Bisacodyl (Dulcolax) 10 mg [place] DAILY PRN PRN Reason: SEVERE CONSTIPATION Carbamazepine (Tegretol) 100 mg PO TID [facility] Last Admin: 11/08/16 17:48 Dose: 100 mg Docusate Sodium (Colace) 200 mg PO DAILY [facility] Last Admin: 11/08/16 10:25 Dose: 200 mg Heparin Sodium (Porcine) (Heparin) 5,000 units SC Q12 [facility] Last Admin: 11/08/16 10:40 Dose: Not Given Hydromorphone HCl (Dilaudid) 0.5 mg IVP Q6H PRN PRN Reason: Pain, severe (8-10) Last Admin: 11/07/16 21:51 Dose: 0.5 mg Lactated Ringer's (Lactated Ringer's) 1,000 mls @ 100 mls/hr IV .Q10H [facility] Last Admin: 11/08/16 14:07 Dose: 100 mls/hr Magnesium Hydroxide (Milk Of Magnesia) 30 ml PO HS PRN PRN Reason: Constipation Ondansetron HCl (Zofran Inj) 4 mg IVP Q4 PRN PRN Reason: Nausea/Vomiting Rosuvastatin Calcium (Crestor) 5 mg PO HS [facility] Last Admin: 11/07/16 21:48 Dose: Not Given Valproate Sodium (Depakene Oral Soln) 250 mg PO QID [facility] Last Admin: 11/08/16 17:48 Dose: 250 mg - Labs Labs: 11/08/16 08:05 11/07/16 07:15 PT 16.0 SECONDS (9.7-12.2) H 11/06/16 07:56 INR 1.4 11/06/16 07:56 APTT 33 SECONDS (21-34) 11/06/16 07:56 - Constitutional Appears: Non-toxic, No Acute Distress, Chronically Ill - Head Exam Head Exam: ATRAUMATIC - Eye Exam Pupil Exam: Irregular - ENT Exam ENT Exam: Mucous Membranes Moist, Normal Exam - Respiratory Exam Respiratory Exam: Clear to Ausculation Bilateral, NORMAL BREATHING PATTERN - Cardiovascular Exam Cardiovascular Exam: REGULAR RHYTHM, +S1, +S2 - GI/Abdominal Exam GI & Abdominal Exam: Normal Bowel Sounds - Rectal Exam Rectal Exam: NORMAL INSPECTION - Exam Exam: NORMAL INSPECTION - Extremities Exam Extremities Exam: Full ROM Assessment and Plan (1) PVD (peripheral vascular disease) Assessment & Plan: S/P R AKA, POST OP, NO CHEST PAIN Status: Chronic (2) Cellulitis of right foot Status: Acute (3) Right foot ulcer Status: Resolved (4) COPD (chronic obstructive pulmonary disease) Status: Chronic (5) Seizure Status: Chronic
--- NOTE | 2016-11-08 22:30 | CP.PCM.PN ---
Subjective - Date & Time of Evaluation Date of Evaluation: 11/08/16 - Subjective Subjective: POST OP, NO CHANGE Objective - Vital Signs/Intake and Output Vital Signs (last 24 hours): Temp Pulse Resp BP Pulse Ox 99.1 F 90 20 126/78 95 11/08/16 16:54 11/08/16 16:54 11/08/16 16:54 11/08/16 16:54 11/08/16 16:54 Intake and Output: 11/08/16 11/09/16 18:59 06:59 Intake Total 900 Output Total 900 700 Balance 0 -700 - Medications Medications: Current Medications Acetaminophen (Tylenol 325mg Tab) 650 mg PO Q6 PRN PRN Reason: Pain, severe (8-10) Last Admin: 11/06/16 22:07 Dose: 650 mg Bisacodyl (Dulcolax) 10 mg [place] DAILY PRN PRN Reason: SEVERE CONSTIPATION Carbamazepine (Tegretol) 100 mg PO TID [facility] Last Admin: 11/08/16 17:48 Dose: 100 mg Docusate Sodium (Colace) 200 mg PO DAILY [facility] Last Admin: 11/08/16 10:25 Dose: 200 mg Heparin Sodium (Porcine) (Heparin) 5,000 units SC Q12 [facility] Last Admin: 11/08/16 21:50 Dose: 5,000 units Hydromorphone HCl (Dilaudid) 0.5 mg IVP Q6H PRN PRN Reason: Pain, severe (8-10) Last Admin: 11/07/16 21:51 Dose: 0.5 mg Lactated Ringer's (Lactated Ringer's) 1,000 mls @ 100 mls/hr IV .Q10H [facility] Last Admin: 11/08/16 14:07 Dose: 100 mls/hr Magnesium Hydroxide (Milk Of Magnesia) 30 ml PO HS PRN PRN Reason: Constipation Ondansetron HCl (Zofran Inj) 4 mg IVP Q4 PRN PRN Reason: Nausea/Vomiting Rosuvastatin Calcium (Crestor) 5 mg PO HS [facility] Last Admin: 11/08/16 21:49 Dose: Not Given Valproate Sodium (Depakene Oral Soln) 250 mg PO QID [facility] Last Admin: 11/08/16 21:49 Dose: Not Given - Labs Labs: 11/08/16 08:05 11/07/16 07:15 PT 16.0 SECONDS (9.7-12.2) H 11/06/16 07:56 INR 1.4 11/06/16 07:56 APTT 33 SECONDS (21-34) 11/06/16 07:56 - Constitutional Appears: Non-toxic, No Acute Distress - Head Exam Head Exam: NORMAL INSPECTION - ENT Exam ENT Exam: Mucous Membranes Moist, Normal Exam - Respiratory Exam Respiratory Exam: Clear to Ausculation Bilateral, NORMAL BREATHING PATTERN - Cardiovascular Exam Cardiovascular Exam: +S1, +S2 - GI/Abdominal Exam GI & Abdominal Exam: Normal Bowel Sounds - Exam Exam: NORMAL INSPECTION - Back Exam Back Exam: NORMAL INSPECTION Assessment and Plan (1) PVD (peripheral vascular disease) Status: Chronic (2) Cellulitis of right foot Status: Acute (3) COPD (chronic obstructive pulmonary disease) Status: Chronic (4) Seizure Status: Chronic
[2016-11-09] MEDS: HYDROmorphone 0.5 mg/0.5 ml ISec IVP PRN (00:02)
[2016-11-09] MEDS: Lactated Ringer's 1,000 ML IV SCH ×2 (00:02→12:26)
[2016-11-09 07:28] LABS: BASO % 0.4 % (0.0-2.0); EOS # 0.1 K/uL (0.0-0.7); EOS % 1.9 % (0.0-4.0); HEMOGLOBIN 9.2 g/dL (12.0-18.0); LYMPH # 1.5 K/uL (1.0-4.3); LYMPH % 25.3 % (20.0-40.0); MEAN CELL VOLUME 85.2 fL (80.0-94.0); MEAN CORPUSCULAR HEMOGLOBIN 28.6 pg (27.0-31.0); MEAN CORPUSCULAR HGB CONC 33.6 g/dL (33.0-37.0); MEAN PLATELET VOLUME 7.7 fL (7.2-11.7); MONO # 0.8 K/uL (0.0-0.8); MONO % 13.3 % (0.0-10.0); NEUT # 3.6 K/uL (1.8-7.0); NEUT % 59.1 % (50.0-75.0); NRBC % 0.1 % (0.0-2.0); RBC 3.2 Mil/uL (4.40-5.90); RED CELL DISTRIBUTION WIDTH 14.7 % (11.5-14.5)
[2016-11-09] MEDS: Valproic Acid 250 mg/5 ml UD Cup PO SCH ×3 (09:46→17:34)
[2016-11-09] MEDS: carBAMazepine 100 mg/5 ml Oral Susp (450 ml) PO SCH ×3 (09:47→17:34)
--- NOTE | 2016-11-09 12:37 | CP.PCM.PN ---
Subjective - Date & Time of Evaluation Date of Evaluation: 11/09/16 Time of Evaluation: 07:00 - Subjective Subjective: Vascular Surgery- Dr. Sprague Pt S&E at bedside this AM. no acute events overnight. Pt states he is feeling well with no pain. Pt contracted with dressing over right leg. C/D/I no strikethrough. Denies N/V F/C CP/SOB Objective - Vital Signs/Intake and Output Vital Signs (last 24 hours): Temp Pulse Resp BP Pulse Ox 97 F L 76 20 122/70 98 11/09/16 07:17 11/09/16 07:17 11/09/16 07:17 11/09/16 07:17 11/09/16 07:17 Intake and Output: 11/09/16 11/09/16 06:59 18:59 Intake Total 1720 Output Total 1550 Balance 170 - Medications Medications: Current Medications Acetaminophen (Tylenol 325mg Tab) 650 mg PO Q6 PRN PRN Reason: Pain, severe (8-10) Last Admin: 11/06/16 22:07 Dose: 650 mg Bisacodyl (Dulcolax) 10 mg HI DAILY PRN PRN Reason: SEVERE CONSTIPATION Carbamazepine (Tegretol) 100 mg PO TID [facility] Last Admin: 11/09/16 09:47 Dose: 100 mg Docusate Sodium (Colace) 200 mg PO DAILY [facility] Last Admin: 11/09/16 09:45 Dose: 200 mg Heparin Sodium (Porcine) (Heparin) 5,000 units SC Q12 [facility] Last Admin: 11/09/16 09:48 Dose: 5,000 units Hydromorphone HCl (Dilaudid) 0.5 mg IVP Q6H PRN PRN Reason: Pain, severe (8-10) Last Admin: 11/09/16 00:02 Dose: 0.5 mg Lactated Ringer's (Lactated Ringer's) 1,000 mls @ 100 mls/hr IV .Q10H [facility] Last Admin: 11/09/16 12:26 Dose: 100 mls/hr Magnesium Hydroxide (Milk Of Magnesia) 30 ml PO HS PRN PRN Reason: Constipation Ondansetron HCl (Zofran Inj) 4 mg IVP Q4 PRN PRN Reason: Nausea/Vomiting Rosuvastatin Calcium (Crestor) 5 mg PO HS [facility] Last Admin: 11/08/16 21:49 Dose: Not Given Valproate Sodium (Depakene Oral Soln) 250 mg PO QID [facility] Last Admin: 11/09/16 09:46 Dose: 250 mg - Labs Labs: 11/09/16 07:07 11/07/16 07:15 PT 16.0 SECONDS (9.7-12.2) H 11/06/16 07:56 INR 1.4 11/06/16 07:56 APTT 33 SECONDS (21-34) 11/06/16 07:56 Assessment and Plan - Assessment and Plan (Free Text) Assessment: 76M s/p right AKA POD#3 Plan: - H&H stable - Keep dressings intact, if bleeding noted, please page resident director - PT ordered - Further recs per Dr. Celestine Douglas PGY1
--- NOTE | 2016-11-09 14:48 | CP.PCM.PN ---
Subjective - Date & Time of Evaluation Date of Evaluation: 11/09/16 Time of Evaluation: 12:00 - Subjective Subjective: Pt seen an d examined today awake, alert, oriented to person, confused , denies any chest pain, sob, c/o sore at RLE s/p R AKA, site clean, dry, and intact hgb stable - 9.2<9.7<9.8 Objective - Vital Signs/Intake and Output Vital Signs (last 24 hours): Temp Pulse Resp BP Pulse Ox 97 F L 76 20 122/70 98 11/09/16 07:17 11/09/16 07:17 11/09/16 07:17 11/09/16 07:17 11/09/16 07:17 Intake and Output: 11/09/16 11/09/16 06:59 18:59 Intake Total 1720 Output Total 1550 400 Balance 170 -400 - Medications Medications: Current Medications Acetaminophen (Tylenol 325mg Tab) 650 mg PO Q6 PRN PRN Reason: Pain, severe (8-10) Last Admin: 11/06/16 22:07 Dose: 650 mg Bisacodyl (Dulcolax) 10 mg IA DAILY PRN PRN Reason: SEVERE CONSTIPATION Carbamazepine (Tegretol) 100 mg PO TID [facility] Last Admin: 11/09/16 13:47 Dose: 100 mg Docusate Sodium (Colace) 200 mg PO DAILY [facility] Last Admin: 11/09/16 09:45 Dose: 200 mg Heparin Sodium (Porcine) (Heparin) 5,000 units SC Q12 [facility] Last Admin: 11/09/16 09:48 Dose: 5,000 units Hydromorphone HCl (Dilaudid) 0.5 mg IVP Q6H PRN PRN Reason: Pain, severe (8-10) Last Admin: 11/09/16 00:02 Dose: 0.5 mg Magnesium Hydroxide (Milk Of Magnesia) 30 ml PO HS PRN PRN Reason: Constipation Ondansetron HCl (Zofran Inj) 4 mg IVP Q4 PRN PRN Reason: Nausea/Vomiting Rosuvastatin Calcium (Crestor) 5 mg PO HS [facility] Last Admin: 11/08/16 21:49 Dose: Not Given Valproate Sodium (Depakene Oral Soln) 250 mg PO QID [facility] Last Admin: 11/09/16 13:47 Dose: 250 mg - Labs Labs: 11/09/16 07:07 11/07/16 07:15 PT 16.0 SECONDS (9.7-12.2) H 11/06/16 07:56 INR 1.4 11/06/16 07:56 APTT 33 SECONDS (21-34) 11/06/16 07:56 - Constitutional Appears: Well, No Acute Distress, Confused - Respiratory Exam Respiratory Exam: Clear to Ausculation Bilateral, NORMAL BREATHING PATTERN - Cardiovascular Exam Cardiovascular Exam: REGULAR RHYTHM, +S1, +S2 - Extremities Exam Extremities Exam: Joint Swelling (R AKA) - Neurological Exam Neurological Exam: Alert, Awake (confused) Assessment and Plan - Assessment and Plan (Free Text) Assessment: A/P 76 yo male w/PMHx of TIA, COPD, Seizure ds, dementia, unstable angina, admitted fo r of Right foot redness, swelling, chronic ulceration. failed angio s/p R AKA pod#3 hgb stable D/W naga Mcginnis ofr discharge to [place] today and f/u with Dr. Hernandez govern office in 2 weeks D/W naga Rider for discharge to [facility] and Dr. Ann will follow the patient at [facility]
[2016-11-09] MEDS ORDERED: Pneumococcal 23-Valent Vaccine IM ONE ×2 (15:12→17:15)
[2016-11-09 15:26] VITALS: BP 117/58; PULSE 88; TEMP 99; O2SAT 96
--- NOTE | 2016-11-09 23:19 | CP.PCM.DIS ---
Provider - Provider Date of Admission: 11/02/16 11:33 Attending physician: Lele Ann MD Diagnosis - Discharge Diagnosis (1) PVD (peripheral vascular disease) Status: Chronic (2) Cellulitis of right foot Status: Acute (3) COPD (chronic obstructive pulmonary disease) Status: Chronic Priority: High (4) Seizure Status: Chronic Hospital Course - Lab Results Lab Results: Micro Results 11/02/16 14:30 Blood Blood Culture - Final NO GROWTH AFTER 5 DAYS 11/02/16 14:30 Blood Gram Stain - Final TEST NOT PERFORMED 11/02/16 14:00 Blood Blood Culture - Final NO GROWTH AFTER 5 DAYS 11/02/16 14:00 Blood Gram Stain - Final TEST NOT PERFORMED Most Recent Lab Values WBC 6.0 K/uL (4.8-10.8) 11/09/16 07:07 RBC 3.20 Mil/uL (4.40-5.90) L 11/09/16 07:07 Hgb 9.2 g/dL (12.0-18.0) L 11/09/16 07:07 Hct 27.3 % (35.0-51.0) L 11/09/16 07:07 MCV 85.2 fL (80.0-94.0) 11/09/16 07:07 MCH 28.6 pg (27.0-31.0) 11/09/16 07:07 MCHC 33.6 g/dL (33.0-37.0) 11/09/16 07:07 RDW 14.7 % (11.5-14.5) H 11/09/16 07:07 Plt Count 201 K/uL (130-400) 11/09/16 07:07 MPV 7.7 fL (7.2-11.7) 11/09/16 07:07 Neut % (Auto) 59.1 % (50.0-75.0) 11/09/16 07:07 Lymph % (Auto) 25.3 % (20.0-40.0) 11/09/16 07:07 Jerauld % (Auto) 13.3 % (0.0-10.0) H 11/09/16 07:07 Eos % (Auto) 1.9 % (0.0-4.0) 11/09/16 07:07 Baso % (Auto) 0.4 % (0.0-2.0) 11/09/16 07:07 Neut # 3.6 K/uL (1.8-7.0) 11/09/16 07:07 Lymph # 1.5 K/uL (1.0-4.3) 11/09/16 07:07 Jerauld # 0.8 K/uL (0.0-0.8) 11/09/16 07:07 Eos # 0.1 K/uL (0.0-0.7) 11/09/16 07:07 Baso # 0.0 K/uL (0.0-0.2) 11/09/16 07:07 Neutrophils % (Manual) 61 % (50-75) 11/04/16 06:59 Band Neutrophils % 2 % (0-2) 11/04/16 06:59 Lymphocytes % (Manual) 19 % (20-40) L 11/04/16 06:59 Monocytes % (Manual) 17 % (0-10) H 11/04/16 06:59 Eosinophils % (Manual) 1 % (0-4) 11/04/16 06:59 Platelet Estimate Normal (NORMAL) 11/04/16 06:59 RBC Morphology Normal 11/04/16 06:59 PT 16.0 SECONDS (9.7-12.2) H 11/06/16 07:56 INR 1.4 11/06/16 07:56 APTT 33 SECONDS (21-34) 11/06/16 07:56 Sodium 135 mmol/L (132-148) 11/07/16 07:15 Potassium 3.6 mmol/L (3.6-5.2) 11/07/16 07:15 Chloride 97 mmol/L (98-107) L 11/07/16 07:15 Carbon Dioxide 22 mmol/L (22-30) 11/07/16 07:15 Anion Gap 20 (10-20) 11/07/16 07:15 BUN < 2 mg/dL (9-20) L 11/07/16 07:15 Creatinine 0.4 MG/DL (0.8-1.5) L 11/07/16 07:15 Est GFR ( Amer) > 60 11/07/16 07:15 Est GFR (Non-Af Amer) > 60 11/07/16 07:15 POC Glucose (mg/dL) 110 mg/dL (65-110) 11/08/16 12:06 Random Glucose 87 mg/dL (75-110) 11/07/16 07:15 Calcium 7.2 mg/dl (8.6-10.4) L 11/07/16 07:15 Total Bilirubin 0.8 mg/dL (0.2-1.3) 11/07/16 07:15 AST 21 U/L (17-59) 11/07/16 07:15 ALT 22 U/L (21-72) 11/07/16 07:15 Alkaline Phosphatase 60 U/L (38-126) 11/07/16 07:15 Total Protein 5.4 g/dL (6.3-8.3) L 11/07/16 07:15 Albumin 2.3 g/dL (3.5-5.0) L D 11/07/16 07:15 Globulin 3.1 gm/dL (2.2-3.9) 11/07/16 07:15 Albumin/Globulin Ratio 0.7 (1.0-2.1) L 11/07/16 07:15 Valproic Acid < 10.0 ug/mL (50.0-100.0) L 11/02/16 14:44 Carbamazepine < 3.0 ug/mL (4.0-12.0) L 11/02/16 14:44 - Hospital Course Hospital Course: ADMITTED WITH R LEG ISCHEMIA, AND W/U SHOWED THAT IT IS NOT POSSIBLE TO REVASCULARIZE, AND IS FOR R AKA, AND IT WAS DONE AND DISCHARGED Discharge Exam - Head Exam Head Exam: NORMAL INSPECTION - Eye Exam Eye Exam: Normal appearance - ENT Exam ENT Exam: Mucous Membranes Moist, Normal Exam - Respiratory Exam Respiratory Exam: Clear to PA & Lateral, NORMAL BREATHING PATTERN - Cardiovascular Exam Cardiovascular Exam: REGULAR RHYTHM, +S1, +S2 - GI/Abdominal Exam GI & Abdominal Exam: Normal Bowel Sounds - Extremities Exam Extremities exam: full ROM (ABSENT INSOLE REINFORCER AND DPA B/L) - Neurological Exam Neurological exam: Alert - Psychiatric Exam Psychiatric exam: Normal Mood - Skin Skin Exam: Dry Discharge Plan - Follow Up Plan Condition: STABLE Disposition: [facility] Instructions: Cellulitis (DC), Peripheral Vascular Disease (DC) Additional Instructions: PLEASE F/U WITH DR. SHEN OFFICE IN 2 WEEKS -CALL AN DMAKE APPOINTMENT DO NOT CHANGE DRESSING - LEAVE IT IT IS UNTIL SEEN BY DR. SHEN OFFICE CBC,BMP WEDNESDAY AND WEDNESDAY Referrals: Lele Ann MD [Staff Provider] - Per Shen Jr., MD [Staff Provider] -
== END 2016-11-09 18:35 | DRG 240 ==
LOC: C.ER 10:22 → C.9E 11:33 → C.3T 12:46
PROVIDERS: ADMIT Internal Medicine; ATTEND Internal Medicine
PROC: 02HV33Z Insertion of Infusion Device into Superior Vena Cava, Percutaneous Approach (ICD-10-PCS; 2016-11-04)
PROC: 0Y6C0Z2 Detachment at Right Upper Leg, Mid, Open Approach (ICD-10-PCS; principal; 2016-11-06 14:40)
DX: I70.261 Atherosclerosis of native arteries of extremities with gangrene, right leg (principal); L03.115 Cellulitis of right lower limb; F03.90 Unspecified dementia, unspecified severity, without behavioral disturbance, psychotic disturbance, mood disturbance, and anxiety; I20.0 Unstable angina; J44.9 Chronic obstructive pulmonary disease, unspecified; L97.519 Non-pressure chronic ulcer of other part of right foot with unspecified severity; J45.909 Unspecified asthma, uncomplicated; G40.909 Epilepsy, unspecified, not intractable, without status epilepticus; Z86.73 Personal history of transient ischemic attack (TIA), and cerebral infarction without residual deficits; Z74.01 Bed confinement status; H02.401 Unspecified ptosis of right eyelid

== ENCOUNTER 2017-07-25 01:02 | Emergency (ER) | payer MEDICARE, MEDICAID ==
--- NOTE | 2017-07-25 01:34 | C.PDOC ---
History Of Present Illness 77 year old male, a resident of [facility], brought by EMS is alert but confused and can offer no history. As per senior living, he had a positive blood culture of gram positive cocci. Patient does not recall fevers. Denies rashes, cough, sore throat, ear aches or any other Patient does not know why he is here. Patient has a past medical history of COPD, HTN, and Dementia. PMD: Dr. 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 Constitutional: Positive for: Other (positive blood culture showing gram- positive cocci. ) Physical Exam - Physical Exam Appears: No Acute Distress, Confused, Other (Patient repeated used phrase "You tell me" after every question asked. Patient is also emaciated. ) Skin: Dry, No Rash, No Other (lesions) Eye(s): bilateral: Normal Inspection Ear(s): Bilateral: Normal Nose: Normal Oral Mucosa: Moist Throat: Normal Neck: Supple Chest: Symmetrical Cardiovascular: Rhythm Regular Respiratory: Normal Breath Sounds, No Rales, No Rhonchi, No Wheezing Gastrointestinal/Abdominal: Soft, No Tenderness Extremity: Other (right knee above amputation. atrophied musculature throughout body) Neurological/Psych: Normal Speech, Normal Motor, Normal Sensation, Normal Reflexes, Other (Alert ot person. Cannot say where he is, what month or year it is. ) ED Course And Treatment - Laboratory Results Result Diagrams: 07/25/17 02:28 07/25/17 02:28 O2 Sat by Pulse Oximetry: 91 (RA) Pulse Ox Interpretation: Normal Medical Decision Making Medical Decision Making: Time: 0135 Impression: Limited fever workup Plan: -- CMP -- Troponin -- CBC with differentials -- Chest XR One View -- Blood Culture -- Urine Culture -- Influenza A B -- Urinalysis -- Will discuss with PMD Dr. Kaur whether admittance is warranted. Time: 032 Plan: -- Patient is positive for Influenza. Patient will be started on Tamiflue and discharged home. -- CXR shows significant prior trauma to right chest with old right clavicle fracture, loss of volume on right hemithorax. No acute infiltrates are noted. Disposition - Disposition Referrals: Lele Ann MD [Staff Provider] - Disposition: HOME/ ROUTINE Disposition Time: 06:20 Condition: FAIR Prescriptions: Oseltamivir Phosphate [Tamiflu] 75 mg PO BID #10 capsule Instructions: Flu Forms: [facility] (Slovenian) Print Language: COMORAN - Clinical Impression Clinical Impression: Influenza-like illness - Scribe Statement The provider has reviewed the documentation as recorded by the Bettyiberick Maurice Provider Attestation: All medical record entries made by the Bettyiberick were at my direction and personally dictated by me. I have reviewed the chart and agree that the record accurately reflects my personal performance of the history, physical exam, medical decision making, and the department course for this patient. I have also personally directed, reviewed, and agree with the discharge instructions and disposition.
[2017-07-25 02:32] LABS: BASO # 0.1 K/uL (0.0-0.2); EOS % 0.1 % (0.0-4.0); HEMOGLOBIN 13.9 g/dL (12.0-18.0); LYMPH % 19.9 % (20.0-40.0); MEAN CELL VOLUME 87.9 fL (80.0-94.0); MEAN CORPUSCULAR HEMOGLOBIN 28.9 pg (27.0-31.0); MEAN CORPUSCULAR HGB CONC 32.9 g/dL (33.0-37.0); MEAN PLATELET VOLUME 8.3 fL (7.2-11.7); MONO # 1.6 K/uL (0.0-0.8); MONO % 15.9 % (0.0-10.0); NEUT # 6.2 K/uL (1.8-7.0); NEUT % 63.1 % (50.0-75.0); NRBC % 0.2 % (0.0-2.0); RBC 4.81 Mil/uL (4.40-5.90); RED CELL DISTRIBUTION WIDTH 15.7 % (11.5-14.5); WHITE BLOOD COUNT 9.8 K/uL (4.8-10.8)
[2017-07-25 03:26] LABS: ALB/GLOB RATIO 0.6 (1.0-2.1); ALBUMIN 2.9 g/dL (3.5-5.0); ALT/SGPT 84 U/L (21-72); AST/SGOT 187 U/L (17-59); BLOOD UREA NITROGEN 17 mg/dL (9-20); CALCIUM 8.2 mg/dl (8.6-10.4); GFR AFRICAN-AMERICAN > 60; GFR NON-AFRICAN AMERICAN > 60
[2017-07-25 05:08] VITALS: BP 110/70; PULSE 84; RESP 18; TEMP 100
[2017-07-25 06:20] VITALS: O2SAT 91
--- NOTE | 2017-07-25 07:55 | RAD ---
PROCEDURE: CHEST RADIOGRAPH, 1 VIEW HISTORY: SOB COMPARISON: Chest radiographs 11/02/2016. FINDINGS: LUNGS: Trace atelectasis question at the right base minimally. There is slight increase in opacity at the right apex which may reflect increased fibrosis. No left-sided airspace disease. Right-sided pulmonary volume loss again evident with mediastinum remaining somewhat shifted toward the right. PLEURA: No definite pleural effusion identified bilaterally. No pneumothorax apparent. CARDIOVASCULAR: Normal. OSSEOUS STRUCTURES: Right-sided parenchymal/the again appreciate with 3 stabilization plates noted at the 5th 6 7th posterolateral ribs. Chronic ununited right clavicle fracture remaining directed cephalad once again. VISUALIZED UPPER ABDOMEN: Normal. OTHER FINDINGS: None. IMPRESSION: Stable volume loss right lung with fibrosis slightly increased at the right apex and trace atelectasis favored at the right base. No left-sided infiltrate with hyperinflation left lung again evident. No definite acute cardiopulmonary disease.
== END 2017-07-25 05:08 | disposition home or self-care (01) ==
LOC: C.ER 01:02
DX: J11.1 Influenza due to unidentified influenza virus with other respiratory manifestations (principal)

== ENCOUNTER 2017-07-29 20:46 | Inpatient (IN) | payer MEDICARE, MEDICAID ==
[2017-07-29 20:55] VITALS: BMI 16.2
[2017-07-29] MEDS ORDERED: Lactated Ringer's 1,000 ML IV ONE ×3 (21:14→22:41)
--- NOTE | 2017-07-29 21:14 | C.PDOC ---
History Of Present Illness The patient is brought to the ED by ambulance after being sent from correction for evaluation of fever and hypotension. As per correction, patient was last seen at baseline at around 1500 today. He was found to be unresponsive around 1 hour prior to ED arrival. Patient was given 1mg of Epinephrine and 500cc of normal saline in field by ALS. Patient has rectal temperature of 105.5F in the ED. Unable to obtain additional history due to patient's clinical condition. Time Seen by Provider: 07/29/17 21:13 Chief Complaint (Nursing): Altered Mental Status History Per: EMS History/Exam Limitations: Clinical Condition Onset/Duration Of Symptoms: Hrs Onset Of Symptoms: Cannot Confirm Onset Current Symptoms Are (Timing): Still Present Usual Baseline: Alert Oriented (x2) Exacerbating Factor(s): Unknown Use Of Anticoag/Antiplatelets: No Severity: Severe Pain Scale Rating Of: 8 Recent travel outside of the [place]: No Additional History Per: EMS, Assisted Associated Symptoms: Fever, Confused, Other (hypotension ) Past Medical History Reviewed: Historical Data, Nursing Documentation, Vital Signs Vital Signs: Last Vital Signs Temp 98.8 F 07/29/17 23:03 Pulse 83 07/29/17 23:03 Resp 21 07/29/17 23:03 BP 97/47 L 07/29/17 23:03 Pulse Ox 99 07/29/17 23:03 - Medical History PMH: Arthritis (BACK; 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 Physical Exam - Physical Exam Appears: Toxic, In Acute Distress Skin: Warm, Dry, Pale Head: Normacephalic Eye(s): bilateral: Normal Inspection, Conjunctiva Pale, right: Other (ptosis) Oral Mucosa: Dry Lips: Other (dry) Teeth: Edentulous Neck: Supple Chest: Symmetrical Cardiovascular: Rhythm Regular, No Murmur Respiratory: Decreased Breath Sounds, No Rales, Rhonchi (scattered ), No Wheezing Gastrointestinal/Abdominal: Bowel Sounds (present ), Soft, No Tenderness, No Guarding, No Rebound Back: Normal Inspection Extremity: Capillary Refill (less than 2 seconds ), Other (right above-knee amputation. left tibial IO; foot is mottled and cold with decreased pulses throughout ) Extremity: Right: Other (AKA) Pulses: Left Femoral: Normal, Right Femoral: Normal, Left Dorsalis Pedis: Decreased Neurological/Psych: Other (awake, alert and oriented x1 ) Gait: Unable To Assess ED Course And Treatment - Laboratory Results Result Diagrams: 07/29/17 21:35 07/29/17 21:35 ECG: Interpreted By Me, Viewed By Me ECG Rhythm: Sinus Rhythm (98), Nonspecific Changes (pac's occ, pvc's ) O2 Sat by Pulse Oximetry: 97 (on RA) Pulse Ox Interpretation: Normal - Radiology CXR: Interpreted by Me, Viewed By Me CXR Interpretation: Yes: Infiltrates (?rul), Other (rib plates in place, unchanged from 07/25/17). No: Fracture, Cardiomegaly Progress Note: Right femoral stick performed to obtain bloodwork. Bloodwork, urinalysis, CXR, EKG ordered and reviewed. Lactated Ringers Solution IV, Zosyn IV, Tylenol DC, and Vancomycin IVP administered. 21:33 Patient appears to be more responsive than initial evaluation. the full septic fluid not givendue to poor cardiac function. spoke with dr núñez -icu- will come and see the pt in the ed Critical Care Time - Critical Care Note Total Time (in mins): 60 Documented critical care: time excludes all time spent performing seperately billable procedures. Disposition Discussed With : Lele Ann Comment: accepted the pt onhis service and took over the care at 11:10 PM Doctor Will See Patient In The: Hospital Counseled Patient/Family Regarding: Studies Performed, Diagnosis - Disposition Disposition: HOSPITALIZED Disposition Time: 21:13 Condition: GUARDED Forms: [facility] (Italian) - POA Present On Arrival: Poor Glycemic Control - Clinical Impression Clinical Impression: PVD (peripheral vascular disease), Acute hypernatremia, Leukocytosis, Renal insufficiency - Scribe Statement The provider has reviewed the documentation as recorded by the Scribe (Mercedes Bain) Provider Attestation: All medical record entries made by the Scribe were at my direction and personally dictated by me. I have reviewed the chart and agree that the record accurately reflects my personal performance of the history, physical exam, medical decision making, and the department course for this patient. I have also personally directed, reviewed, and agree with the discharge instructions and disposition. Decision To Admit - Pt Status Changed To: Hospital Disposition Of: Inpatient - Admit Certification Admit to Inpatient:: After my assessment, the patient will require hospitalization for at least two midnights. This is because of the severity of symptoms shown, intensity of services needed, and/or the medical risk in this patient being treated as an outpatient. - InPatient: Physician Admission Certification:: After my assessment, the patient will require hospitalization for at least two midnights. This is because of the severity of symptoms shown, intensity of services needed, and/or the medical risk in this patient being treated as an outpatient. - . Bed Request Type: Telemetry Admitting Physician: Lele Ann Patient Diagnosis: PVD (peripheral vascular disease), Acute hypernatremia, Leukocytosis, Renal insufficiency
[2017-07-29] MEDS ORDERED: Piperacill/Tazo 4.5gm in Dex 4.5 GM/100 ML BAG IVPB STA (21:16)
[2017-07-29] MEDS ORDERED: Vancomycin 1 gm/NS 200 ml 1 GM/200 ML BAG IVPB STA (21:16)
[2017-07-29 21:19] LABS: VENOUS BLOOD GAS BASE EXCESS -1.1 mmol/L (0.0-2.0); VENOUS BLOOD GAS PCO2 45 mmHg (40-60); VENOUS BLOOD GAS PO2 35 mm/Hg (30-55); VENOUS BLOOD PH 7.35 (7.32-7.43)
[2017-07-29 21:40] LABS: BASO # 0.1 K/uL (0.0-0.2); BASO % 0.4 % (0.0-2.0); EOS % 0.2 % (0.0-4.0); HEMOGLOBIN 11.7 g/dL (12.0-18.0); LYMPH # 2.4 K/uL (1.0-4.3); LYMPH % 14.8 % (20.0-40.0); MEAN CELL VOLUME 89.4 fL (80.0-94.0); MEAN CORPUSCULAR HEMOGLOBIN 28.9 pg (27.0-31.0); MEAN CORPUSCULAR HGB CONC 32.3 g/dL (33.0-37.0); MEAN PLATELET VOLUME 7.7 fL (7.2-11.7); MONO % 5.9 % (0.0-10.0); NEUT # 12.9 K/uL (1.8-7.0); NEUT % 78.7 % (50.0-75.0); NRBC % 0.3 % (0.0-2.0); RBC 4.06 Mil/uL (4.40-5.90); RED CELL DISTRIBUTION WIDTH 16.5 % (11.5-14.5); WHITE BLOOD COUNT 16.4 K/uL (4.8-10.8)
[2017-07-29 21:52] LABS: INR 3.4
[2017-07-29 21:54] LABS: PROTHROMBIN TIME 39.8 SECONDS (9.7-12.2)
[2017-07-29 21:59] LABS: ALB/GLOB RATIO 0.5 (1.0-2.1); ALBUMIN 2.5 g/dL (3.5-5.0); CALCIUM 7.2 mg/dl (8.6-10.4)
[2017-07-29 22:11] LABS: URINE BILIRUBIN MODERATE (NEGATIVE); URINE BLOOD 1+ (NEGATIVE); URINE CLARITY Hazy (Clear); URINE COLOR DARK YELLOW (YELLOW); URINE GLUCOSE (UA) NEGATIVE (Normal)
[2017-07-29 22:12] LABS: URINE LEUKOCYTE ESTERASE NEGATIVE Leu/uL (Negative); URINE PROTEIN 100 mg/dL (NEGATIVE); URINE UROBILINOGEN 0.2 mg/dL (0.2-1.0)
[2017-07-29 22:23] LABS: SQUAMOUS EPITHIAL 1 /hpf (0-5); URINE BACTERIA OCC (<OCC)
[2017-07-29 22:24] LABS: URINE AMORPHOUS SEDIMENT FEW /ul (<OCC); URINE HYALINE CAST 1 /lpf (0-2)
[2017-07-29] MEDS ORDERED: Albumin Human 5% (12.5 gm/250 ml) IV ONE (23:15)
[2017-07-29] MEDS: Sodium Chloride 0.9% 1,000 ML IV SCH (23:25)
--- NOTE | 2017-07-29 23:26 | CP.PCM.CON ---
History of Present Illness - History of Present Illness History of Present Illness: 77yo M. PMHx Arthritis (BACK; KNEE R>L), Asthma, COPD, Severe Dementia, HTN, Pneumonia, Seizures, TIA, Right AKA. p/w altered mental status and hypotension. Review of Systems - Review of Systems Systems not reviewed;Unavailable: Altered Mental Status (dementia) Past Patient History - Infectious Disease Hx of Infectious Diseases: None - Past Medical History & Family History Past Medical History?: Yes - Past Social History Smoking Status: Never Smoked - CARDIAC Hx Hypertension: Yes - PULMONARY Hx Asthma: Yes Hx Chronic Obstructive Pulmonary Disease (COPD): Yes Hx Pneumonia: Yes - NEUROLOGICAL Hx Dementia: Yes Hx Seizures: Yes Hx Transient Ischemic Attacks (TIA): Yes - HEENT Hx HEENT Problems: Yes Other/Comment: RT EYELID DROOP - RENAL Hx Chronic Kidney Disease: No - ENDOCRINE/METABOLIC Hx Endocrine Disorders: No - HEMATOLOGICAL/ONCOLOGICAL Hx Blood Disorders: No - INTEGUMENTARY Hx Dermatological Problems: No - MUSCULOSKELETAL/RHEUMATOLOGICAL Hx Arthritis: Yes (BACK; KNEE R>L) - GASTROINTESTINAL Hx Gastrointestinal Disorders: No - GENITOURINARY/GYNECOLOGICAL Hx Genitourinary Disorders: Yes Hx Incontinence: Yes - PSYCHIATRIC Hx Substance Use: No - SURGICAL HISTORY Hx Surgeries: No Other/Comment: angiogram sometime in 2017 - ANESTHESIA Hx Anesthesia: Yes Hx Anesthesia Reactions: No Hx Malignant Hyperthermia: No Meds Allergies/Adverse Reactions: Allergies Allergy/AdvReac Type Severity Reaction Status Date / Time No Known Allergies Allergy Verified 07/25/17 01:13 - Medications Medications: Current Medications Acetaminophen (Tylenol 325 Mg Supp) 975 mg MI ONCE PRN PRN Reason: Fever >100.4 F Last Admin: 07/29/17 20:59 Dose: 975 mg Acetylcysteine (Acetylcysteine 20%) 4 ml INH RQ6 AMY Albuterol/Ipratropium (Duoneb 3 Mg/0.5 Mg (3 Ml) Ud) 3 ml INH RQ4 AMY Lactated Ringer's (Lactated Ringer's) 1,000 mls @ 1,000 mls/hr IV .Q1H ONE Stop: 07/29/17 23:40 Last Admin: 07/29/17 22:44 Dose: 1,000 mls/hr Sodium Chloride (Sodium Chloride 0.9%) 1,000 mls @ 75 mls/hr IV .[id number] AMY Cefepime HCl 2 gm/ Sodium (Chloride) 100 mls @ 100 mls/hr IVPB Q12H AMY PRN Reason: Protocol Stop: 08/04/17 10:01 Physical Exam - Constitutional Appears: Cachectic - Head Exam Head Exam: ATRAUMATIC, NORMAL INSPECTION, NORMOCEPHALIC - Eye Exam Eye Exam: EOMI, Normal appearance, PERRL - ENT Exam ENT Exam: Mucous Membranes Dry - Respiratory Exam Respiratory Exam: Rhonchi, NORMAL BREATHING PATTERN - Cardiovascular Exam Cardiovascular Exam: REGULAR RHYTHM - GI/Abdominal Exam GI & Abdominal Exam: Normal Bowel Sounds, Soft. absent: Tenderness - Extremities Exam Extremities exam: Positive for: normal inspection (right AKA) - Neurological Exam Neurological exam: Alert Results - Vital Signs Recent Vital Signs: Last Vital Signs Temp 98.8 F 07/29/17 23:03 Pulse 83 07/29/17 23:03 Resp 21 07/29/17 23:03 BP 97/47 L 07/29/17 23:03 Pulse Ox 97 07/29/17 23:16 - Labs Result Diagrams: 07/29/17 21:35 07/29/17 21:35 Labs: Laboratory Results - last 24 hr 07/29/17 07/29/17 07/29/17 21:14 21:35 21:35 WBC 16.4 H D RBC 4.06 L Hgb 11.7 L D Hct 36.3 MCV 89.4 MCH 28.9 MCHC 32.3 L RDW 16.5 H Plt Count 421 H D MPV 7.7 Neut % (Auto) 78.7 H Lymph % (Auto) 14.8 L Dent % (Auto) 5.9 Eos % (Auto) 0.2 Baso % (Auto) 0.4 Neut # (Auto) 12.9 H Lymph # (Auto) 2.4 Dent # (Auto) 1.0 H Eos # (Auto) 0.0 Baso # (Auto) 0.1 PT INR APTT pO2 35 VBG pH 7.35 VBG pCO2 45 VBG HCO3 23.2 VBG Total CO2 26.2 VBG O2 Sat (Calc) 61.1 VBG Base Excess -1.1 L VBG Potassium 3.2 L Sodium 166.0 H* Chloride 129.0 H Glucose 119 H Lactate 4.5 H* Potassium Carbon Dioxide Anion Gap BUN Creatinine Est GFR ( Amer) Est GFR (Non-Af Amer) Random Glucose Calcium Phosphorus Magnesium Total Bilirubin AST ALT Alkaline Phosphatase Total Protein Albumin Globulin Albumin/Globulin Ratio Procalcitonin 2.53 H Venous Blood Potassium 3.2 L Urine Color Urine Clarity Urine pH Ur Specific [place] Urine Protein Urine Glucose (UA) Urine Ketones Urine Blood Urine Nitrate Urine Bilirubin Urine Urobilinogen Ur Leukocyte Esterase Urine WBC (Auto) Urine RBC (Auto) Ur Squamous Epith Cells Amorphous Sediment Urine Bacteria Hyaline Casts 07/29/17 07/29/17 07/29/17 21:35 21:35 21:52 WBC RBC Hgb Hct MCV MCH MCHC RDW Plt Count MPV Neut % (Auto) Lymph % (Auto) [place] % (Auto) Eos % (Auto) Baso % (Auto) Neut # (Auto) Lymph # (Auto) [place] # (Auto) Eos # (Auto) Baso # (Auto) PT 39.8 H* INR 3.4 APTT 31 pO2 VBG pH VBG pCO2 VBG HCO3 VBG Total CO2 VBG O2 Sat (Calc) VBG Base Excess VBG Potassium Sodium 169 H* Chloride 128 H Glucose Lactate Potassium 3.2 L Carbon Dioxide 26 Anion Gap 18 BUN 29 H Creatinine 1.6 H Est GFR ( Amer) 51 Est GFR (Non-Af Amer) 42 Random Glucose 118 H Calcium 7.2 L Phosphorus 3.0 Magnesium 2.4 H Total Bilirubin 1.3 AST 50 ALT 19 L D Alkaline Phosphatase 86 Total Protein 7.4 Albumin 2.5 L Globulin 5.0 H Albumin/Globulin Ratio 0.5 L Procalcitonin Venous Blood Potassium Urine Color Dark yellow Urine Clarity Hazy Urine pH 6.0 Ur Specific [place] 1.025 Urine Protein 100 Urine Glucose (UA) Negative Urine Ketones Trace Urine Blood 1+ H Urine Nitrate Positive H Urine Bilirubin Moderate Urine Urobilinogen 0.2 Ur Leukocyte Esterase Negative Urine WBC (Auto) 2 Urine RBC (Auto) 5 H Ur Squamous Epith Cells 1 Amorphous Sediment Few H Urine Bacteria Occ H Hyaline Casts 1 Assessment & Plan (1) Dehydration with hypernatremia Assessment and Plan: 77yo M. PMHx Arthritis (BACK; KNEE R>L), Asthma, COPD, Severe Dementia, HTN, Pneumonia, Seizures, TIA, Right AKA. p/w hyovolemic hypernatremia with sepsis. Neuro: alert, follows commands, severe dementia. Palliative care consult for advanced directives discussion. Pulm: acute on chronic pneumonia in right lung, poor expansion s/p rib fractures. duonebs, abx, chest pt, mucomyst. CV: hypotensive, start albumin drip with fluid reuscitation. Hem: anemia of chronic disease, leucocytosis from sepsis. Renal: acute hypovolemic hypernatremia, albumin@25 + NS@75. Endo: no acute issues GI: NPO, s/s eval in am. severe protein calorie malnutrition associated with dementia, high mortality risk. ID: sepsis from pneumonia, continue Cefepime, consider adding Vanco if no improvement. DVT proph - lovenox GI proph - not currently indicated garcia for strict I/O's during acute illness Code status - full code Patient is currently relatively stable and alert, for continued management on the floors. His retirement prognosis is terrible. He has end stage dementia, severe protein calorie malnutrition, hypovolemia and a right LE amputation, and is a poor candidate for continued critical care management and should be assessed for advanced directives and making the individual a do not hospitalize. Critical Care Time spent 45 minutes Multi-disciplinary rounds were performed with house staff, nursing, speech therapy, respiratory therapy, pharmacy and nutrition with integrated input from the primary team/attending and other consulting services. The documented time is cumulative and includes review of patient data/exams/labs/chart review and examination of the patient on rounds and throughout the day; time is exclusive of any procedures or teaching time. Status: Acute
[2017-07-29] MEDS ORDERED: Albuterol-Ipratrop 3 mg / 0.5 (3 ml) UD ONE (23:32)
--- NOTE | 2017-07-29 23:58 | CP.PCM.PN ---
Subjective - Date & Time of Evaluation Date of Evaluation: 07/30/17 Time of Evaluation: 20:00 - Subjective Subjective: Pt is right now in ICU, septic workup pending, B.P is sable now Objective - Vital Signs/Intake and Output Vital Signs (last 24 hours): Temp Pulse Resp BP Pulse Ox 98.1 F 90 20 92/45 L 94 L 07/29/17 23:41 07/29/17 23:41 07/29/17 23:41 07/29/17 23:41 07/29/17 23:41 - Medications Medications: Current Medications Acetaminophen (Tylenol 325 Mg Supp) 975 mg NE ONCE PRN PRN Reason: Fever >100.4 F Last Admin: 07/29/17 20:59 Dose: 975 mg Acetylcysteine (Acetylcysteine 20%) 4 ml INH RQ6 AMY Albuterol/Ipratropium (Duoneb 3 Mg/0.5 Mg (3 Ml) Ud) 3 ml INH RQ4 AMY Enoxaparin Sodium (Lovenox) 30 mg SC DAILY AMY Sodium Chloride (Sodium Chloride 0.9%) 1,000 mls @ 75 mls/hr IV .[id number] AMY Last Admin: 07/29/17 23:25 Dose: 75 mls/hr Cefepime HCl 2 gm/ Sodium (Chloride) 100 mls @ 100 mls/hr IVPB Q12H AMY PRN Reason: Protocol Stop: 08/04/17 10:01 - Labs Labs: 07/29/17 21:35 07/29/17 21:35 PT 39.8 SECONDS (9.7-12.2) H* 07/29/17 21:35 INR 3.4 07/29/17 21:35 APTT 31 SECONDS (21-34) 07/29/17 21:35 - Constitutional Appears: No Acute Distress - Head Exam Head Exam: ATRAUMATIC, NORMAL INSPECTION, NORMOCEPHALIC - Eye Exam Eye Exam: EOMI, Normal appearance, PERRL Pupil Exam: NORMAL ACCOMODATION, PERRL - Respiratory Exam Respiratory Exam: Decreased Breath Sounds - Cardiovascular Exam Cardiovascular Exam: REGULAR RHYTHM, +S1, +S2. absent: Murmur - GI/Abdominal Exam GI & Abdominal Exam: Soft, Normal Bowel Sounds. absent: Tenderness - Rectal Exam Rectal Exam: Deferred - Back Exam Back Exam: NORMAL INSPECTION - Neurological Exam Neurological Exam: Alert, Awake, CN II-XII Intact, Normal Gait, Oriented x3 Assessment and Plan (1) COPD (chronic obstructive pulmonary disease) Status: Chronic (2) Seizure disorder Status: Acute (3) Septicemia Status: Acute (4) Septic shock Status: Acute
--- NOTE | 2017-07-29 23:58 | CP.PCM.HP ---
History of Present Illness - History of Present Illness History of Present Illness: CC: hypotension History Of Present Illness Pt is a group home resident, who has h/o COPD, HTN,. patient is brought to the ED by ambulance after being sent from group home for evaluation of fever and hypotension. As per group home, patient was last seen at baseline at around 1500 today. He was found to be unresponsive around 1 hour prior to ED arrival. Patient was given 1mg of Epinephrine and 500cc of normal saline in field by ALS. Patient has rectal temperature of 105.5F in the ED. Unable to obtain additional history due to patient's clinical condition. Present on Admission - Present on Admission Any Indicators Present on Admission: Yes Review of Systems - Review of Systems Systems not reviewed;Unavailable: Acuity of Condition, Unstable Vital Signs - Constitutional Constitutional: Fatigue, Lethargy, Malaise, Weakness - EENT Eyes: absent: As Per HPI, Blind Spots, Blurred Vision, Change in Vision, Decreased Night Vision, Diplopia, Discharge, Dry Eye, Exophthalmos, Floaters, Irritation, Itchy Eyes, Loss of Peripheral Vision, Pain, Photophobia, Requires Corrective Lenses, Sees Flashes, Spots in Vision, Tunnel Vision, Other Visual Disturbances, Loss of Vision, Other Nose/Mouth/Throat: absent: As Per HPI, Epistaxis, Nasal Congestion, Nasal Discharge, Nasal Obstruction, Nasal Trauma, Nose Pain, Post Nasal Drip, Sinus Pain, Sinus Pressure, Bleeding Gums, Change in Voice, Dental Pain, Dry Mouth, Dysphagia, Halitosis, Hoarsness, Lip Swelling, Mouth Lesions, Mouth Pain, Odynophagia, Sore Throat, Throat Swelling, Tongue Swelling, Facial Pain, Neck Pain, Neck Mass, Other - Cardiovascular Cardiovascular: absent: As Per HPI, Acrocyanosis, Chest Pain, Chest Pain at Rest , Chest Pain with Activity, Claudication, Diaphoresis, Dyspnea, Dyspnea on Exertion, Edema, Irregular Heart Rhythm, Pain Radiating to Arm/Neck/Jaw, Leg Edema, Leg Ulcers, Lightheadedness, Orthopnea, Palpitations, Paroxysmal Nocturnal Dyspnea, Pedal Edema, Radiating Pain, Rapid Heart Rate, Slow Heart Rate, Syncope, Other - Respiratory Respiratory: absent: As Per HPI, Cough, Dyspnea, Hemoptysis, Dyspnea on Exertion , Wheezing, Snoring, Stridor, Pain on Inspiration, Chest Congestion, Excessive Mucous Production, Change in Mucous Color, Pain with Coughing, Other - Gastrointestinal Gastrointestinal: absent: As Per HPI, Abdominal Pain, Belching, Bloating, Change in Bowel Habits, Change in Stool Character, Coffee Ground Emesis, Constipation, Cramping, Diarrhea, Dyspepsia, Dysphagia, Early Satiety, Excessive Flatus, Fecal Incontinence, Heartburn, Hematemesis, Hematochezia, Loose Stools, Melena, Nausea, Odynophagia, Temesmus, Vomiting, Other Past Patient History - Infectious Disease Hx of Infectious Diseases: None - Past Medical History & Family History Past Medical History?: Yes - Past Social History Smoking Status: Never Smoked - CARDIAC Hx Hypertension: Yes - PULMONARY Hx Asthma: Yes Hx Chronic Obstructive Pulmonary Disease (COPD): Yes Hx Pneumonia: Yes - NEUROLOGICAL Hx Dementia: Yes Hx Seizures: Yes Hx Transient Ischemic Attacks (TIA): Yes - HEENT Hx HEENT Problems: Yes Other/Comment: RT EYELID DROOP - RENAL Hx Chronic Kidney Disease: No - ENDOCRINE/METABOLIC Hx Endocrine Disorders: No - HEMATOLOGICAL/ONCOLOGICAL Hx Blood Disorders: No - INTEGUMENTARY Hx Dermatological Problems: No - MUSCULOSKELETAL/RHEUMATOLOGICAL Hx Arthritis: Yes (BACK; KNEE R>L) - GASTROINTESTINAL Hx Gastrointestinal Disorders: No - GENITOURINARY/GYNECOLOGICAL Hx Genitourinary Disorders: Yes Hx Incontinence: Yes - PSYCHIATRIC Hx Substance Use: No - SURGICAL HISTORY Hx Surgeries: No Other/Comment: angiogram sometime in 2017 - ANESTHESIA Hx Anesthesia: Yes Hx Anesthesia Reactions: No Hx Malignant Hyperthermia: No Meds Allergies/Adverse Reactions: Allergies Allergy/AdvReac Type Severity Reaction Status Date / Time No Known Allergies Allergy Verified 07/25/17 01:13 Physical Exam - Constitutional Appears: No Acute Distress - Head Exam Head Exam: ATRAUMATIC, NORMAL INSPECTION, NORMOCEPHALIC - Eye Exam Eye Exam: EOMI, Normal appearance, PERRL Pupil Exam: NORMAL ACCOMODATION, PERRL - Respiratory Exam Respiratory Exam: Clear to Auscultation Bilateral, NORMAL BREATHING PATTERN - Cardiovascular Exam Cardiovascular Exam: +S1, +S2 - GI/Abdominal Exam GI & Abdominal Exam: Normal Bowel Sounds, Soft. absent: Tenderness - Rectal Exam Rectal Exam: Deferred - Extremities Exam Additional comments: left AKA stump is clean Results - Vital Signs Recent Vital Signs: Last Vital Signs Temp 98.1 F 07/29/17 23:41 Pulse 90 07/29/17 23:41 Resp 20 07/29/17 23:41 BP 92/45 L 07/29/17 23:41 Pulse Ox 94 L 07/29/17 23:41 - Labs Result Diagrams: 07/30/17 06:12 07/30/17 06:12 Labs: Laboratory Results - last 24 hr 07/29/17 07/29/17 07/29/17 21:14 21:35 21:35 WBC 16.4 H D RBC 4.06 L Hgb 11.7 L D Hct 36.3 MCV 89.4 MCH 28.9 MCHC 32.3 L RDW 16.5 H Plt Count 421 H D MPV 7.7 Neut % (Auto) 78.7 H Lymph % (Auto) 14.8 L [place] % (Auto) 5.9 Eos % (Auto) 0.2 Baso % (Auto) 0.4 Neut # (Auto) 12.9 H Lymph # (Auto) 2.4 Ada # (Auto) 1.0 H Eos # (Auto) 0.0 Baso # (Auto) 0.1 PT INR APTT pO2 35 VBG pH 7.35 VBG pCO2 45 VBG HCO3 23.2 VBG Total CO2 26.2 VBG O2 Sat (Calc) 61.1 VBG Base Excess -1.1 L VBG Potassium 3.2 L Sodium 166.0 H* Chloride 129.0 H Glucose 119 H Lactate 4.5 H* Potassium Carbon Dioxide Anion Gap BUN Creatinine Est GFR ( Amer) Est GFR (Non-Af Amer) Random Glucose Calcium Phosphorus Magnesium Total Bilirubin AST ALT Alkaline Phosphatase Total Protein Albumin Globulin Albumin/Globulin Ratio Procalcitonin 2.53 H Venous Blood Potassium 3.2 L Urine Color Urine Clarity Urine pH Ur Specific [place] Urine Protein Urine Glucose (UA) Urine Ketones Urine Blood Urine Nitrate Urine Bilirubin Urine Urobilinogen Ur Leukocyte Esterase Urine WBC (Auto) Urine RBC (Auto) Ur Squamous Epith Cells Amorphous Sediment Urine Bacteria Hyaline Casts 07/29/17 07/29/17 07/29/17 21:35 21:35 21:52 WBC RBC Hgb Hct MCV MCH MCHC RDW Plt Count MPV Neut % (Auto) Lymph % (Auto) [place] % (Auto) Eos % (Auto) Baso % (Auto) Neut # (Auto) Lymph # (Auto) Ada # (Auto) Eos # (Auto) Baso # (Auto) PT 39.8 H* INR 3.4 APTT 31 pO2 VBG pH VBG pCO2 VBG HCO3 VBG Total CO2 VBG O2 Sat (Calc) VBG Base Excess VBG Potassium Sodium 169 H* Chloride 128 H Glucose Lactate Potassium 3.2 L Carbon Dioxide 26 Anion Gap 18 BUN 29 H Creatinine 1.6 H Est GFR ( Amer) 51 Est GFR (Non-Af Amer) 42 Random Glucose 118 H Calcium 7.2 L Phosphorus 3.0 Magnesium 2.4 H Total Bilirubin 1.3 AST 50 ALT 19 L D Alkaline Phosphatase 86 Total Protein 7.4 Albumin 2.5 L Globulin 5.0 H Albumin/Globulin Ratio 0.5 L Procalcitonin Venous Blood Potassium Urine Color Dark yellow Urine Clarity Hazy Urine pH 6.0 Ur Specific [place] 1.025 Urine Protein 100 Urine Glucose (UA) Negative Urine Ketones Trace Urine Blood 1+ H Urine Nitrate Positive H Urine Bilirubin Moderate Urine Urobilinogen 0.2 Ur Leukocyte Esterase Negative Urine WBC (Auto) 2 Urine RBC (Auto) 5 H Ur Squamous Epith Cells 1 Amorphous Sediment Few H Urine Bacteria Occ H Hyaline Casts 1 Assessment & Plan (1) PVD (peripheral vascular disease) Status: Chronic (2) COPD (chronic obstructive pulmonary disease) Status: Chronic Priority: High (3) Right foot ulcer Status: Resolved
[2017-07-30 00:37] LABS: VENOUS BLOOD GAS BASE EXCESS -3.4 mmol/L (0.0-2.0); VENOUS BLOOD GAS PCO2 49 mmHg (40-60); VENOUS BLOOD PH 7.29 (7.32-7.43)
[2017-07-30] MEDS: Acetylcysteine 20% Inhal Soln (4ml) INH SCH ×5 (00:38→19:51)
[2017-07-30] MEDS: Albuterol-Ipratrop 3 mg / 0.5 (3 ml) UD INH SCH ×5 (00:39→19:51)
[2017-07-30 06:17] LABS: BASO % 0.4 % (0.0-2.0); EOS % 0.3 % (0.0-4.0); HEMOGLOBIN 11.2 g/dL (12.0-18.0); LYMPH # 2.4 K/uL (1.0-4.3); LYMPH % 19.5 % (20.0-40.0); MEAN CELL VOLUME 92.1 fL (80.0-94.0); MEAN CORPUSCULAR HEMOGLOBIN 29.1 pg (27.0-31.0); MEAN CORPUSCULAR HGB CONC 31.6 g/dL (33.0-37.0); MEAN PLATELET VOLUME 7.6 fL (7.2-11.7); MONO # 0.9 K/uL (0.0-0.8); MONO % 7.3 % (0.0-10.0); NEUT % 72.5 % (50.0-75.0); NRBC % 0.2 % (0.0-2.0); RBC 3.86 Mil/uL (4.40-5.90); RED CELL DISTRIBUTION WIDTH 16.7 % (11.5-14.5); WHITE BLOOD COUNT 12.4 K/uL (4.8-10.8)
[2017-07-30 06:38] LABS: BLOOD UREA NITROGEN 22 mg/dL (9-20); CALCIUM 6.8 mg/dl (8.6-10.4); GFR AFRICAN-AMERICAN > 60; GFR NON-AFRICAN AMERICAN 59
--- NOTE | 2017-07-30 08:23 | RAD ---
HISTORY: Sepsis Patient COMPARISON: 07/25/2017 FINDINGS: LUNGS: Again seen is low lung volume on the right with shift of trachea and mediastinal to the right. The left lung is well inflated and clear PLEURA: No significant pleural effusion identified, no pneumothorax apparent. CARDIOVASCULAR: Normal. OSSEOUS STRUCTURES: There are postsurgical changes in the right mid posterior ribs. There is an old fracture deformity in the right clavicle. VISUALIZED UPPER ABDOMEN: Normal. OTHER FINDINGS: None. IMPRESSION: No significant interval change. No acute findings
[2017-07-30] MEDS: Cefepime 2 GM in Sodium Chloride 0.9% 100 ML IVPB SCH ×2 (09:31→22:35)
[2017-07-30] MEDS: Sodium Chloride 0.9% 1,000 ML IV SCH ×2 (09:33→12:00)
[2017-07-30] MEDS ORDERED: Enoxaparin 30 mg Syringe SC SCH (10:00)
[2017-07-30] MEDS ORDERED: Acetylcysteine 20% Inhal Soln (4ml) INH SCH (14:19)
--- NOTE | 2017-07-30 21:19 | CARD ---
APPROVED REPORT EKG Measurement Heart [id number] <Conclusion> Sinus rhythm with premature supraventricular complexes and with occasional premature ventricular complexes Left axis deviation Low voltage QRS ST & T wave abnormality, consider anterolateral ischemia Prolonged QT Abnormal ECG
[2017-07-31] MEDS: Albuterol-Ipratrop 3 mg / 0.5 (3 ml) UD INH SCH ×4 (01:58→19:40)
[2017-07-31] MEDS: Acetylcysteine 20% Inhal Soln (4ml) INH SCH ×4 (02:00→19:40)
[2017-07-31] MEDS: Sodium Chloride 0.9% 1,000 ML IV SCH (02:20)
[2017-07-31 09:11] LABS: BASO # 0.1 K/uL (0.0-0.2); EOS # 0.1 K/uL (0.0-0.7); EOS % 1.1 % (0.0-4.0); HEMOGLOBIN 11.5 g/dL (12.0-18.0); LYMPH # 1.8 K/uL (1.0-4.3); LYMPH % 18.1 % (20.0-40.0); MEAN CORPUSCULAR HEMOGLOBIN 28.9 pg (27.0-31.0); MEAN CORPUSCULAR HGB CONC 32.4 g/dL (33.0-37.0); MEAN PLATELET VOLUME 8.3 fL (7.2-11.7); MONO # 0.4 K/uL (0.0-0.8); MONO % 4.3 % (0.0-10.0); NEUT # 7.5 K/uL (1.8-7.0); NEUT % 75.5 % (50.0-75.0); NRBC % 0.1 % (0.0-2.0); RBC 3.99 Mil/uL (4.40-5.90); RED CELL DISTRIBUTION WIDTH 16.2 % (11.5-14.5); WHITE BLOOD COUNT 9.9 K/uL (4.8-10.8)
[2017-07-31 09:16] LABS: MEAN CELL VOLUME 89.1 fL (80.0-94.0)
[2017-07-31 09:19] LABS: INR 2.3
[2017-07-31 09:21] LABS: PROTHROMBIN TIME 26.9 SECONDS (9.7-12.2)
[2017-07-31 09:25] LABS: ALB/GLOB RATIO 0.5 (1.0-2.1); ALBUMIN 2.6 g/dL (3.5-5.0); ALT/SGPT 18 U/L (21-72); AST/SGOT 93 U/L (17-59); BLOOD UREA NITROGEN 12 mg/dL (9-20); CALCIUM 7.1 mg/dl (8.6-10.4); GFR AFRICAN-AMERICAN > 60; GFR NON-AFRICAN AMERICAN > 60
[2017-07-31] MEDS: Cefepime 2 GM in Sodium Chloride 0.9% 100 ML IVPB SCH ×2 (09:25→22:41)
--- NOTE | 2017-07-31 09:57 | CP.PCM.PN ---
Subjective - Date & Time of Evaluation Date of Evaluation: 07/31/17 Time of Evaluation: 20:00 - Subjective Subjective: Pt seen and examined at bedside, more alert, setic workup pending Objective - Vital Signs/Intake and Output Vital Signs (last 24 hours): Temp Pulse Resp BP Pulse Ox 99.3 F 94 H 22 125/59 L 95 07/31/17 08:00 07/31/17 08:00 07/31/17 08:00 07/31/17 08:00 07/31/17 08:00 Intake and Output: 07/31/17 07/31/17 06:59 18:59 Intake Total 1050 Output Total 1000 Balance 50 - Medications Medications: Current Medications Acetaminophen (Tylenol 325 Mg Supp) 975 mg VT ONCE PRN PRN Reason: Fever >100.4 F Last Admin: 07/29/17 20:59 Dose: 975 mg Acetylcysteine (Acetylcysteine 20%) 4 ml INH RQ6 AMY Last Admin: 07/31/17 08:19 Dose: 4 ml Albuterol/Ipratropium (Duoneb 3 Mg/0.5 Mg (3 Ml) Ud) 3 ml INH RQ6 AMY Last Admin: 07/31/17 08:19 Dose: 3 ml Sodium Chloride (Sodium Chloride 0.9%) 1,000 mls @ 75 mls/hr IV .[id number] AMY Last Admin: 07/31/17 02:20 Dose: 75 mls/hr Cefepime HCl 2 gm/ Sodium (Chloride) 100 mls @ 100 mls/hr IVPB Q12H AMY PRN Reason: Protocol Stop: 08/04/17 10:01 Last Admin: 07/31/17 09:25 Dose: 100 mls/hr - Labs Labs: 07/31/17 09:00 07/31/17 09:00 PT 26.9 SECONDS (9.7-12.2) H D 07/31/17 09:00 INR 2.3 D 07/31/17 09:00 APTT 31 SECONDS (21-34) 07/31/17 09:00 - Constitutional Appears: No Acute Distress, Agitated - Extremities Exam Extremities Exam: Full ROM, Normal Capillary Refill, Normal Inspection. absent : Joint Swelling, Pedal Edema Additional comments: pt is afebrile, hemodynamically stable more alert, UTI rule out sepsis, pt is for septic work up, antibiotics - Neurological Exam Neurological Exam: Alert, Awake, CN II-XII Intact, Normal Gait, Oriented x3 Assessment and Plan (1) COPD (chronic obstructive pulmonary disease) Status: Chronic (2) Seizure disorder Status: Acute (3) Dehydration with hypernatremia Status: Acute (4) Flu Status: Acute (5) Mycoplasmal pneumonia Status: Acute
[2017-07-31] MEDS: Valproic Acid 250 mg/5 ml UD Cup PO SCH ×2 (17:01→22:41)
[2017-07-31] MEDS ORDERED: carBAMazepine 100 mg/5 ml Oral Susp (450 ml) PO SCH (18:00)
[2017-07-31] MEDS: Aritificial Tears (15ml) OD SCH (20:44)
[2017-07-31] MEDS: carBAMazepine Chew Tab 100 MG Chew Tab PO SCH (22:41)
[2017-08-01] MEDS: Albuterol-Ipratrop 3 mg / 0.5 (3 ml) UD INH SCH ×4 (01:20→19:32)
[2017-08-01] MEDS: Acetylcysteine 20% Inhal Soln (4ml) INH SCH ×4 (01:20→19:32)
[2017-08-01] MEDS: Aritificial Tears (15ml) OD SCH ×7 (04:00→23:49)
[2017-08-01 05:46] LABS: BASO % 1.2 % (0.0-2.0); EOS % 2.1 % (0.0-4.0); HEMOGLOBIN 10.3 g/dL (12.0-18.0); LYMPH # 1.9 K/uL (1.0-4.3); LYMPH % 23.8 % (20.0-40.0); MEAN CELL VOLUME 87.7 fL (80.0-94.0); MEAN CORPUSCULAR HGB CONC 33.1 g/dL (33.0-37.0); MEAN PLATELET VOLUME 8.7 fL (7.2-11.7); MONO # 0.5 K/uL (0.0-0.8); MONO % 6.3 % (0.0-10.0); NEUT # 5.4 K/uL (1.8-7.0); NEUT % 66.6 % (50.0-75.0); NRBC % 0.2 % (0.0-2.0); RBC 3.57 Mil/uL (4.40-5.90); WHITE BLOOD COUNT 8.1 K/uL (4.8-10.8)
[2017-08-01 05:47] LABS: BASO # 0.1 K/uL (0.0-0.2); EOS # 0.2 K/uL (0.0-0.7)
[2017-08-01 05:52] LABS: PROTHROMBIN TIME 22.4 SECONDS (9.7-12.2)
[2017-08-01] MEDS: carBAMazepine Chew Tab 100 MG Chew Tab PO SCH ×3 (06:11→21:32)
[2017-08-01 06:42] LABS: BLOOD UREA NITROGEN 9 mg/dL (9-20); GFR AFRICAN-AMERICAN > 60; GFR NON-AFRICAN AMERICAN > 60
[2017-08-01 06:43] LABS: CALCIUM 6.9 mg/dl (8.6-10.4)
[2017-08-01] MEDS: Valproic Acid 250 mg/5 ml UD Cup PO SCH ×4 (09:00→21:32)
[2017-08-01] MEDS: Cefepime 2 GM in Sodium Chloride 0.9% 100 ML IVPB SCH ×2 (09:45→21:32)
[2017-08-01] MEDS: Vancomycin 1 gm/NS 200 ml 1 GM/200 ML BAG IVPB SCH (17:18)
--- NOTE | 2017-08-02 01:07 | CP.PCM.PN ---
Subjective - Date & Time of Evaluation Date of Evaluation: 08/01/17 Time of Evaluation: 19:00 - Subjective Subjective: Pt seen and examined at bedside, low grade fever, more alert, hemodynamically stable Objective - Vital Signs/Intake and Output Vital Signs (last 24 hours): Temp Pulse Resp BP Pulse Ox 97.5 F L 74 18 98/53 L 96 08/02/17 00:00 08/02/17 00:00 08/02/17 00:00 08/02/17 00:00 08/02/17 00:00 Intake and Output: 08/01/17 08/02/17 18:59 06:59 Intake Total 900 Output Total 600 Balance 900 -600 - Medications Medications: Current Medications Acetylcysteine (Acetylcysteine 20%) 4 ml INH RQ6 AMY Last Admin: 08/01/17 19:32 Dose: 4 ml Albuterol/Ipratropium (Duoneb 3 Mg/0.5 Mg (3 Ml) Ud) 3 ml INH RQ6 AMY Last Admin: 08/01/17 19:32 Dose: 3 ml Artificial Tears (Artificial Tears) 0 ml OD Q4 AMY Last Admin: 08/01/17 23:49 Dose: 1 drop Carbamazepine (Tegretol) 100 mg PO Q8 AMY Last Admin: 08/01/17 21:32 Dose: 100 mg Cefepime HCl 2 gm/ Sodium (Chloride) 100 mls @ 100 mls/hr IVPB Q12H AMY PRN Reason: Protocol Stop: 08/04/17 10:01 Last Admin: 08/01/17 21:32 Dose: 100 mls/hr Dextrose (Dextrose 5% In Water 1000 Ml) 1,000 mls @ 75 mls/hr IV .[id number] [facility] Last Admin: 08/01/17 18:18 Dose: Not Given Vancomycin/Sodium Chloride (Vancomycin 1 Gm/Ns 200 Ml) 1 gm in 200 mls @ 166.6 mls/hr IVPB Q24H AMY PRN Reason: Protocol Stop: 08/06/17 17:01 Last Admin: 08/01/17 17:18 Dose: 166.6 mls/hr Oseltamivir Phosphate (Tamiflu Cap) 75 mg PO BID AMY PRN Reason: Protocol Stop: 08/06/17 09:04 Last Admin: 08/01/17 17:25 Dose: 75 mg Valproate Sodium (Depakene Oral Soln) 250 mg PO QID AMY Last Admin: 08/01/17 21:32 Dose: 250 mg - Labs Labs: 08/01/17 05:42 08/01/17 04:00 PT 22.4 SECONDS (9.7-12.2) H 08/01/17 04:00 INR 2.0 08/01/17 04:00 APTT 24 SECONDS (21-34) D 08/01/17 04:00 - Constitutional Appears: No Acute Distress, Chronically Ill - Head Exam Head Exam: ATRAUMATIC, NORMAL INSPECTION, NORMOCEPHALIC - Eye Exam Eye Exam: EOMI, Normal appearance, PERRL Pupil Exam: NORMAL ACCOMODATION, PERRL - Respiratory Exam Respiratory Exam: Clear to Ausculation Bilateral, NORMAL BREATHING PATTERN - Cardiovascular Exam Cardiovascular Exam: REGULAR RHYTHM, +S1, +S2. absent: Murmur - GI/Abdominal Exam GI & Abdominal Exam: Soft, Normal Bowel Sounds. absent: Tenderness - Rectal Exam Rectal Exam: Deferred Assessment and Plan (1) COPD (chronic obstructive pulmonary disease) Status: Chronic (2) Seizure disorder Status: Acute (3) Flu Assessment & Plan: medical management Status: Acute (4) Mycoplasmal pneumonia Status: Acute
[2017-08-02] MEDS: Albuterol-Ipratrop 3 mg / 0.5 (3 ml) UD INH SCH ×4 (01:24→20:02)
[2017-08-02] MEDS: Acetylcysteine 20% Inhal Soln (4ml) INH SCH ×4 (01:24→20:02)
[2017-08-02] MEDS: Aritificial Tears (15ml) OD SCH ×5 (04:00→20:50)
[2017-08-02] MEDS: carBAMazepine Chew Tab 100 MG Chew Tab PO SCH ×3 (05:19→21:33)
--- NOTE | 2017-08-02 08:28 | RAD ---
Chest x-ray single frontal view History: Pneumonia. Comparison: 07/29/2017 Findings: Again seen is low lung volume on the right with shifted trachea and mediastinum to the right. Post surgical changes in the right mid posterior ribs. Old fracture deformity of the right clavicle. Cystic lucencies noted at the right lung apex. Venous congestion. Nodular consolidative changes at the right lung apex and right lung base. Patchy increased markings at the left lung base. Tortuous ectatic aorta. Degenerative changes in the spine. Impression: Again seen is low lung volume on the right with shifted trachea and mediastinum to the right. Post surgical changes in the right mid posterior ribs. Old fracture deformity of the right clavicle. Cystic lucencies noted at the right lung apex. Venous congestion. Nodular consolidative changes at the right lung apex and right lung base. Patchy increased markings at the left lung base. Tortuous ectatic aorta. Degenerative changes in the spine.
[2017-08-02] MEDS: Valproic Acid 250 mg/5 ml UD Cup PO SCH ×4 (10:33→21:33)
[2017-08-02] MEDS: Cefepime 2 GM in Sodium Chloride 0.9% 100 ML IVPB SCH ×2 (10:33→21:33)
--- NOTE | 2017-08-02 12:41 | CP.PCM.CON ---
History of Present Illness - History of Present Illness History of Present Illness: INFECTIOUS DISEASE CONSULT; HPI; 77-year-old male with history of COPD, hypertension, seizures disorder, TIA, peripheral vascular disease with history of LT.AKA (2017 ), arthritis, TIA who was admitted on 07/29/17 with hyperthermia with rectal temperature 105 in the ER , hypernatremia, altered mental status and acute renal insufficiency.Patient serum lactate was 4.5 on admission with increasing leukocytosis. Patient was hypotensive and was placed on IV antibiotics including cefepime 2 g every 12 hourly and Tamiflu as chest x-ray showed NODULAR CONSOLIDATIVE CHANGES RIGHT LUNG APEX AND CYSTIC LUCENCIES ALSO NOTED AT RIGHT LUNG APEX. PATCHY INCREASED MARKINGS LEFT LOWER LUNG BASE ALSO REPORTED. PATIENT PRESENTLY HAS A Cabrera CATHETER IN PLACE FOR MONITORING RENAL OUTPUT. hIS SODIUM IS DOWN TO 148, bun/CREATININE HAS NORMALIZED. INFECTIOUS DISEASE CONSULTATION REQUESTED BY PMD PATIENT STILL HAVING FEVERS OF 101 WITH PRODUCTIVE COUGH THICK YELLOWISH IN NATURE REPORTED BY RN. PATIENT ALSO HAS SEVERE PERIPHERAL VASCULAR DISEASE WITH HISTORY OF LEFT ABOVE- KNEE AMPUTATION. HISTORY OBTAINED MAINLY FROM THE CHART, PATIENT HAS SEVERE ADVANCED DEMENTIA. PMH: Arthritis (BACK; KNEE R>L), Asthma, COPD, Dementia, HTN, Pneumonia, Seizures, TIA Surgical History: No Surg Hx - [facility] Procedures DETACHMENT AT RIGHT UPPER LEG, MID, OPEN APPROACH (11/02/16) INSERTION OF INFUSION DEV INTO SUP VENA CAVA, PERC APPROACH (11/02/16) Family History: States: Unknown Family Hx - Social History Hx Alcohol Use: No Hx Substance Use: No - Immunization History Hx Tetanus Toxoid Vaccination: No Hx Influenza Vaccination: No Hx Pneumococcal Vaccination: No ALLERGY; NKA. Review of Systems - Review of Systems Systems not reviewed;Unavailable: Dementia Past Patient History - Infectious Disease Hx of Infectious Diseases: None - Past Medical History & Family History Past Medical History?: Yes - Past Social History Smoking Status: Never Smoked - CARDIAC Hx Hypertension: Yes - PULMONARY Hx Asthma: Yes Hx Chronic Obstructive Pulmonary Disease (COPD): Yes Hx Pneumonia: Yes - NEUROLOGICAL Hx Dementia: Yes Hx Seizures: Yes Hx Transient Ischemic Attacks (TIA): Yes - HEENT Hx HEENT Problems: Yes Other/Comment: RT EYELID DROOP - RENAL Hx Chronic Kidney Disease: No - ENDOCRINE/METABOLIC Hx Endocrine Disorders: No - HEMATOLOGICAL/ONCOLOGICAL Hx Blood Disorders: No - INTEGUMENTARY Hx Dermatological Problems: No - MUSCULOSKELETAL/RHEUMATOLOGICAL Hx Arthritis: Yes (BACK; KNEE R>L) - GASTROINTESTINAL Hx Gastrointestinal Disorders: No - GENITOURINARY/GYNECOLOGICAL Hx Genitourinary Disorders: Yes Hx Incontinence: Yes - PSYCHIATRIC Hx Substance Use: No - SURGICAL HISTORY Hx Surgeries: No Other/Comment: angiogram sometime in 2017 - ANESTHESIA Hx Anesthesia: Yes Hx Anesthesia Reactions: No Hx Malignant Hyperthermia: No Meds Allergies/Adverse Reactions: Allergies Allergy/AdvReac Type Severity Reaction Status Date / Time No Known Allergies Allergy Verified 07/25/17 01:13 - Medications Medications: Current Medications Acetylcysteine (Acetylcysteine 20%) 4 ml INH RQ6 [facility] Last Admin: 08/02/17 07:40 Dose: 4 ml Albuterol/Ipratropium (Duoneb 3 Mg/0.5 Mg (3 Ml) Ud) 3 ml INH RQ6 [facility] Last Admin: 08/02/17 07:40 Dose: 3 ml Artificial Tears (Artificial Tears) 0 ml OD Q4 [facility] Last Admin: 08/02/17 12:30 Dose: 2 drop Carbamazepine (Tegretol) 100 mg PO Q8 [facility] Last Admin: 08/02/17 05:19 Dose: Not Given Cefepime HCl 2 gm/ Sodium (Chloride) 100 mls @ 100 mls/hr IVPB Q12H [facility] PRN Reason: Protocol Stop: 08/04/17 10:01 Last Admin: 08/02/17 10:33 Dose: 100 mls/hr Dextrose (Dextrose 5% In Water 1000 Ml) 1,000 mls @ 75 mls/hr IV .[id number] [facility] Last Admin: 08/02/17 07:25 Dose: Not Given Vancomycin/Sodium Chloride (Vancomycin 1 Gm/Ns 200 Ml) 1 gm in 200 mls @ 166.6 mls/hr IVPB Q24H [facility] PRN Reason: Protocol Stop: 08/06/17 17:01 Last Admin: 08/01/17 17:18 Dose: 166.6 mls/hr Oseltamivir Phosphate (Tamiflu Cap) 75 mg PO BID [facility] PRN Reason: Protocol Stop: 08/06/17 09:04 Last Admin: 08/02/17 10:33 Dose: 75 mg Valproate Sodium (Depakene Oral Soln) 250 mg PO QID [facility] Last Admin: 08/02/17 10:33 Dose: 250 mg Physical Exam - Constitutional Appears: No Acute Distress, Cachectic, Chronically Ill - Eye Exam Eye Exam: EOMI, PERRL - ENT Exam ENT Exam: Normal Oropharynx - Neck Exam Neck exam: Positive for: Normal Inspection - Respiratory Exam Respiratory Exam: Rhonchi (RIGHT SIDED MORE THAN LEFT.), NORMAL BREATHING PATTERN - Cardiovascular Exam Cardiovascular Exam: Tachycardia, REGULAR RHYTHM, +S1, +S2 - GI/Abdominal Exam GI & Abdominal Exam: Normal Bowel Sounds, Soft - Extremities Exam Extremities exam: Negative for: calf tenderness, pedal edema (LEFT ABOVE-KNEE AMPUTATION.) - Neurological Exam Neurological exam: Alert - Psychiatric Exam Psychiatric exam: Flat Affect - Skin Skin Exam: Normal Color, Warm Results - Vital Signs Recent Vital Signs: Last Vital Signs Temp 99.1 F 08/02/17 12:00 Pulse 77 08/02/17 12:00 Resp 20 08/02/17 12:00 BP 99/55 L 08/02/17 12:00 Pulse Ox 97 08/02/17 12:00 - Labs Result Diagrams: 08/01/17 05:42 08/01/17 04:00 Assessment & Plan (1) Pneumonia Assessment and Plan: ATYPICAL TITERS. ESR. CRP. MRSA SCREEN CONTINUE iv CEFEPIME 2 G EVERY 12 HOURLY .07/29/17. ADD iv VANCOMYCIN 1 G ONCE A DAY DAILY 08/01/17 FOR MRSA COVERAGE. TAMIFLU 75 MG BY MOUTH TWICE A DAY FOR 5 DAYS 08/01/17 SPUTUM gRAM STAIN AND CULTURE FOLLOW-UP VANCO TROUGH LEVEL PRIOR TO THE THIRD DOSE AND KEEP BETWEEN 10 AND 20. MONITOR RENAL FUNCTIONS CLOSELY. Status: Acute (2) Acute hypernatremia Assessment and Plan: sodium improved from 169 to 148 now. IV fluids as per tire and tube repairer. Status: Acute (3) Dehydration with hypernatremia Status: Acute (4) Renal insufficiency Assessment and Plan: 08/02/17.-- BUN 9/creatinine 0.8 improved IV fluids as per tire and tube repairer. Status: Acute (5) Seizure disorder Status: Acute (6) Septic shock Assessment and Plan: all cultures negative to date. Follow-up chest x-ray as source of sepsis was probable pneumonia. CT CHEST WITHOUT CONTRAST TO EVALUATE RIGHT UPPER LOBE CYSTIC LESIONS VERSUS NODULES. Status: Acute (7) PVD (peripheral vascular disease) Assessment and Plan: HX OF LT.AKA. Status: Chronic
[2017-08-02] MEDS: Vancomycin 1 gm/NS 200 ml 1 GM/200 ML BAG IVPB SCH (17:26)
--- NOTE | 2017-08-02 23:35 | CP.PCM.PN ---
Subjective - Date & Time of Evaluation Date of Evaluation: 08/02/17 Time of Evaluation: 18:00 - Subjective Subjective: Pt seen and examined at bedside pt has low garde fever, flu vs septicemia pt is for resp isolation Objective - Vital Signs/Intake and Output Vital Signs (last 24 hours): Temp Pulse Resp BP Pulse Ox 98.6 F 77 20 99/55 L 97 08/02/17 16:00 08/02/17 12:00 08/02/17 12:00 08/02/17 12:00 08/02/17 16:00 Intake and Output: 08/02/17 08/03/17 18:59 06:59 Intake Total 1600 Output Total 800 Balance 800 - Medications Medications: Current Medications Acetylcysteine (Acetylcysteine 20%) 4 ml INH RQ6 [facility] Last Admin: 08/02/17 20:02 Dose: Not Given Albuterol/Ipratropium (Duoneb 3 Mg/0.5 Mg (3 Ml) Ud) 3 ml INH RQ6 [facility] Last Admin: 08/02/17 20:02 Dose: Not Given Artificial Tears (Artificial Tears) 0 ml OD Q4 [facility] Last Admin: 08/02/17 20:50 Dose: Not Given Carbamazepine (Tegretol) 100 mg PO Q8 [facility] Last Admin: 08/02/17 21:33 Dose: 100 mg Cefepime HCl 2 gm/ Sodium (Chloride) 100 mls @ 100 mls/hr IVPB Q12H [facility] PRN Reason: Protocol Stop: 08/04/17 10:01 Last Admin: 08/02/17 21:33 Dose: 100 mls/hr Dextrose (Dextrose 5% In Water 1000 Ml) 1,000 mls @ 75 mls/hr IV .[id number] [facility] Last Admin: 08/02/17 22:32 Dose: 75 mls/hr Vancomycin/Sodium Chloride (Vancomycin 1 Gm/Ns 200 Ml) 1 gm in 200 mls @ 166.6 mls/hr IVPB Q24H [facility] PRN Reason: Protocol Stop: 08/06/17 17:01 Last Admin: 08/02/17 17:26 Dose: 166.6 mls/hr Oseltamivir Phosphate (Tamiflu Cap) 75 mg PO BID [facility] PRN Reason: Protocol Stop: 08/06/17 09:04 Last Admin: 08/02/17 17:26 Dose: 75 mg Valproate Sodium (Depakene Oral Soln) 250 mg PO QID [facility] Last Admin: 08/02/17 21:33 Dose: 250 mg - Labs Labs: 08/01/17 05:42 08/01/17 04:00 PT 22.4 SECONDS (9.7-12.2) H 08/01/17 04:00 INR 2.0 08/01/17 04:00 APTT 24 SECONDS (21-34) D 08/01/17 04:00 - Constitutional Appears: No Acute Distress - Head Exam Head Exam: ATRAUMATIC, NORMAL INSPECTION, NORMOCEPHALIC - Eye Exam Eye Exam: EOMI, Normal appearance, PERRL Pupil Exam: NORMAL ACCOMODATION, PERRL - Respiratory Exam Respiratory Exam: Decreased Breath Sounds, Rales, Rhonchi - Cardiovascular Exam Cardiovascular Exam: REGULAR RHYTHM, +S1, +S2. absent: Murmur - GI/Abdominal Exam GI & Abdominal Exam: Soft, Normal Bowel Sounds. absent: Tenderness - Extremities Exam Extremities Exam: Full ROM, Normal Capillary Refill, Normal Inspection. absent : Joint Swelling, Pedal Edema - Neurological Exam Neurological Exam: Alert, Awake, CN II-XII Intact, Normal Gait, Oriented x3 Assessment and Plan (1) COPD (chronic obstructive pulmonary disease) Status: Chronic (2) Seizure disorder Status: Acute (3) Septicemia Status: Acute (4) Septic shock Status: Acute
[2017-08-03] MEDS: Albuterol-Ipratrop 3 mg / 0.5 (3 ml) UD INH SCH ×4 (01:28→19:59)
[2017-08-03] MEDS: Acetylcysteine 20% Inhal Soln (4ml) INH SCH ×4 (01:28→19:59)
[2017-08-03] MEDS: carBAMazepine Chew Tab 100 MG Chew Tab PO SCH ×3 (05:07→23:01)
[2017-08-03] MEDS: Aritificial Tears (15ml) OD SCH ×7 (05:07→23:48)
[2017-08-03 06:55] LABS: BASO % 0.3 % (0.0-2.0); EOS # 0.1 K/uL (0.0-0.7); EOS % 2.4 % (0.0-4.0); HEMOGLOBIN 9.6 g/dL (12.0-18.0); LYMPH # 1.2 K/uL (1.0-4.3); MEAN CELL VOLUME 86.8 fL (80.0-94.0); MEAN CORPUSCULAR HEMOGLOBIN 29.1 pg (27.0-31.0); MEAN CORPUSCULAR HGB CONC 33.5 g/dL (33.0-37.0); MEAN PLATELET VOLUME 8.7 fL (7.2-11.7); MONO # 0.5 K/uL (0.0-0.8); MONO % 7.9 % (0.0-10.0); NEUT # 4.1 K/uL (1.8-7.0); NEUT % 69.4 % (50.0-75.0); NRBC % 0.2 % (0.0-2.0); RBC 3.31 Mil/uL (4.40-5.90); RED CELL DISTRIBUTION WIDTH 15.2 % (11.5-14.5); WHITE BLOOD COUNT 5.8 K/uL (4.8-10.8)
[2017-08-03 07:00] LABS: ALB/GLOB RATIO 0.5 (1.0-2.1); ALBUMIN 2.1 g/dL (3.5-5.0); ALT/SGPT 13 U/L (21-72); AST/SGOT 47 U/L (17-59); BILIRUBIN,DIRECT 0.6 mg/dL (0.0-0.4); BLOOD UREA NITROGEN 7 mg/dL (9-20); CALCIUM 6.9 mg/dl (8.6-10.4); GFR AFRICAN-AMERICAN > 60; GFR NON-AFRICAN AMERICAN > 60
[2017-08-03 09:20] LABS: INFLUENZA A B NEGATIVE FOR FLU A/B (NEGATIVE)
[2017-08-03] MEDS: Cefepime 2 GM in Sodium Chloride 0.9% 100 ML IVPB SCH ×2 (10:12→21:29)
[2017-08-03 11:08] LABS: LEGIONELLA AG URINE NEGATIVE (NEGATIVE)
[2017-08-03] MEDS: Valproic Acid 250 mg/5 ml UD Cup PO SCH ×4 (11:19→23:01)
[2017-08-03] MEDS ORDERED: Potassium Chloride 20 mEq/15 ml LIQ UD PO ONE (12:00)
[2017-08-03] MEDS ORDERED: Azithromycin 500 MG in Sodium Chloride 0.9% 250 ML IVPB ONE (14:00)
--- NOTE | 2017-08-03 16:41 | CP.PCM.PN ---
Subjective - Date & Time of Evaluation Date of Evaluation: 08/03/17 Time of Evaluation: 19:00 - Subjective Subjective: Pt seen and examined at bedside, not eating, poor intake, afebrile, weak and lethargc, more alert Objective - Vital Signs/Intake and Output Vital Signs (last 24 hours): Temp Pulse Resp BP Pulse Ox 97.8 F 80 20 84/41 L 96 08/03/17 12:00 08/03/17 08:00 08/03/17 08:00 08/03/17 08:00 08/03/17 08:00 Intake and Output: 08/03/17 08/03/17 06:59 18:59 Intake Total 1000 Output Total 1100 Balance -100 - Medications Medications: Current Medications Acetylcysteine (Acetylcysteine 20%) 4 ml INH RQ6 [facility] Last Admin: 08/03/17 13:24 Dose: 4 ml Albuterol/Ipratropium (Duoneb 3 Mg/0.5 Mg (3 Ml) Ud) 3 ml INH RQ6 [facility] Last Admin: 08/03/17 13:24 Dose: 3 ml Artificial Tears (Artificial Tears) 0 ml OD Q4 [facility] Last Admin: 08/03/17 11:19 Dose: 1 drop Carbamazepine (Tegretol) 100 mg PO Q8 [facility] Last Admin: 08/03/17 13:58 Dose: 100 mg Cefepime HCl 2 gm/ Sodium (Chloride) 100 mls @ 100 mls/hr IVPB Q12H [facility] PRN Reason: Protocol Stop: 08/04/17 10:01 Last Admin: 08/03/17 10:12 Dose: 100 mls/hr Dextrose (Dextrose 5% In Water 1000 Ml) 1,000 mls @ 75 mls/hr IV .[id number] [facility] Last Admin: 08/03/17 15:39 Dose: 75 mls/hr Vancomycin/Sodium Chloride (Vancomycin 1 Gm/Ns 200 Ml) 1 gm in 200 mls @ 166.6 mls/hr IVPB Q24H [facility] PRN Reason: Protocol Stop: 08/06/17 17:01 Last Admin: 08/02/17 17:26 Dose: 166.6 mls/hr Azithromycin 500 mg/ Sodium (Chloride) 250 mls @ 250 mls/hr IVPB Q24H [facility] PRN Reason: Protocol Oseltamivir Phosphate (Tamiflu Cap) 75 mg PO BID [facility] PRN Reason: Protocol Stop: 08/06/17 09:04 Last Admin: 08/03/17 11:18 Dose: 75 mg Valproate Sodium (Depakene Oral Soln) 250 mg PO QID [facility] Last Admin: 08/03/17 13:58 Dose: 250 mg - Labs Labs: 08/03/17 06:44 08/03/17 06:41 PT 22.4 SECONDS (9.7-12.2) H 08/01/17 04:00 INR 2.0 08/01/17 04:00 APTT 24 SECONDS (21-34) D 08/01/17 04:00 Assessment and Plan (1) COPD (chronic obstructive pulmonary disease) Status: Chronic (2) Seizure disorder Status: Acute (3) Fever Assessment & Plan: rule out septicemia Status: Acute (4) Poor appetite Status: Acute (5) Flu Status: Acute
--- NOTE | 2017-08-03 17:30 | CP.PCM.PN ---
Subjective - Date & Time of Evaluation Date of Evaluation: 08/03/17 Time of Evaluation: 17:30 - Subjective Subjective: CHIEF COMPLAINTS TODAY : TEMP TRENDING DOWN. RESTING COMFORTABLY. C/O COUGH OFF/AND ON ROS. HEENT : N. Resp : No SOB wheezing,+VE COUGH-PRODUCTIVE Cardio : No CP, PND orthopnea GI : No abd. Pain, n/v TIRE BUILDER OPERATOR : No headache , focal deficit. Musculoskel : N Ext. : Pedal pulses intact, no edema or calf pain Derm : N Psych : N. PE. Pt. is awake in no distress. V.S As noted in the chart Head ,ear nose,throat and eyes : Normal. Neck : Supple with normal carotids. Lungs: B/L RHONCHI Heart : S1 & S2 normal . . No murmur. S4 + Abd : Soft non tender with normal bowel sounds. Neuro : Moves all ext. with no localized deficit. Ext : No edema with intact pulses. Neg. calf tenderness Derm : No rashes or decubitus ulcer. Radiology/Labs . REVIEWED MYCOPLASMA IGM +VE Objective - Vital Signs/Intake and Output Vital Signs (last 24 hours): Temp Pulse Resp BP Pulse Ox 97.8 F 80 20 84/41 L 96 08/03/17 12:00 08/03/17 08:00 08/03/17 08:00 08/03/17 08:00 08/03/17 08:00 Intake and Output: 08/03/17 08/03/17 06:59 18:59 Intake Total 1000 Output Total 1100 Balance -100 - Medications Medications: Current Medications Acetylcysteine (Acetylcysteine 20%) 4 ml INH RQ6 [facility] Last Admin: 08/03/17 13:24 Dose: 4 ml Albuterol/Ipratropium (Duoneb 3 Mg/0.5 Mg (3 Ml) Ud) 3 ml INH RQ6 [facility] Last Admin: 08/03/17 13:24 Dose: 3 ml Artificial Tears (Artificial Tears) 0 ml OD Q4 [facility] Last Admin: 08/03/17 11:19 Dose: 1 drop Carbamazepine (Tegretol) 100 mg PO Q8 [facility] Last Admin: 08/03/17 13:58 Dose: 100 mg Cefepime HCl 2 gm/ Sodium (Chloride) 100 mls @ 100 mls/hr IVPB Q12H [facility] PRN Reason: Protocol Stop: 08/04/17 10:01 Last Admin: 08/03/17 10:12 Dose: 100 mls/hr Dextrose (Dextrose 5% In Water 1000 Ml) 1,000 mls @ 75 mls/hr IV .[id number] [facility] Last Admin: 08/03/17 15:39 Dose: 75 mls/hr Vancomycin/Sodium Chloride (Vancomycin 1 Gm/Ns 200 Ml) 1 gm in 200 mls @ 166.6 mls/hr IVPB Q24H [facility] PRN Reason: Protocol Stop: 08/06/17 17:01 Last Admin: 08/02/17 17:26 Dose: 166.6 mls/hr Azithromycin 500 mg/ Sodium (Chloride) 250 mls @ 250 mls/hr IVPB Q24H [facility] PRN Reason: Protocol Oseltamivir Phosphate (Tamiflu Cap) 75 mg PO BID [facility] PRN Reason: Protocol Stop: 08/06/17 09:04 Last Admin: 08/03/17 11:18 Dose: 75 mg Valproate Sodium (Depakene Oral Soln) 250 mg PO QID [facility] Last Admin: 08/03/17 13:58 Dose: 250 mg - Labs Labs: 08/03/17 06:44 08/03/17 06:41 PT 22.4 SECONDS (9.7-12.2) H 08/01/17 04:00 INR 2.0 08/01/17 04:00 APTT 24 SECONDS (21-34) D 08/01/17 04:00 Assessment and Plan (1) Pneumonia Assessment & Plan: CONTINUE iv CEFEPIME 2 G EVERY 12 HOURLY .07/29/17. ON iv VANCOMYCIN 1 G ONCE A DAY DAILY 08/01/17 FOR MRSA COVERAGE. TAMIFLU 75 MG BY MOUTH TWICE A DAY FOR 5 DAYS 08/01/17 AZITHROMYCIN 500MG IV QD ORDERED TODAY BY PMD FOR MYCOPLASMA PNEUMONIAE 08/03/17 F/U LFTS SPUTUM gRAM STAIN AND CULTURE-P FOLLOW-UP VANCO TROUGH LEVEL PRIOR TO THE THIRD DOSE AND KEEP BETWEEN 10 AND 20. MONITOR RENAL FUNCTIONS CLOSEL Status: Acute (2) Acute hypernatremia Assessment & Plan: [id number] -IMPROVED. iv FLUIDS PER HUMAN RESOURCE ADVISOR Status: Acute (3) Dehydration with hypernatremia Status: Acute (4) Renal insufficiency Status: Acute (5) Seizure disorder Status: Acute (6) Septic shock Status: Acute (7) PVD (peripheral vascular disease) Status: Chronic
--- NOTE | 2017-08-03 18:11 | PCM.PROC ---
Procedures Attestation:: I certify that I have explained the specified Operation(s) or Procedure(s), risks, benefits and reasonable alternatives to the Patient and/or other person responsible. The opportunity was given to ask questions and all questions answered - Central Line Placement Left Internal Jugular Triple Lumen Catheter Aseptic technique was employed throughout the procedure: Hand Hygiene done prior to procedure, Full sterile barriers (mask, hair cover, sterile gown, sterile gloves), Full body sterile drape, Chloraprep Antiseptic: 30 second prep for IJ or SC sites CVP Time Out Performed: Yes Pt. Placed on Pulse Ox Monitor: Yes Central Line Prep: Chlorhexidine-Alcohol Combination Local Anesthesia Used: Lidocaine 1% Amount of Anesthesia Used (mls): 3 Ultrasound Used for Placement: Yes Central Line Lumen Inserted: triple Central Line Length: 16 cm Post Procedure: Sutured in Place, Good Blood Return, All Ports Aspirated, Flushed, Capped, Sterile Dressing Applied Secured by: Suture Post procedure dressing: Chlorhexidine disc (Biopatch) Post Procedure X-Ray: Yes Patient Tolerated Procedure: Well
[2017-08-03] MEDS: Vancomycin 1 gm/NS 200 ml 1 GM/200 ML BAG IVPB SCH (18:44)
--- NOTE | 2017-08-03 21:52 | CT ---
EXAM: CT Chest Without Intravenous Contrast EXAM DATE/TIME: 08/02/2017 8:30 PM CLINICAL HISTORY: 77 years old, male; Condition or disease; Lung condition and disease; Pneumonia; Additional info: Right upper lobe cavitary pneumonia. TECHNIQUE: Axial computed tomography images of the chest without intravenous contrast. All CT scans at this facility use one or more dose reduction techniques, viz.: automated exposure control; ma/kV adjustment per patient size (including targeted exams where dose is matched to indication; i.e. head); or iterative reconstruction technique. Coronal and sagittal reformatted images were created and reviewed. COMPARISON: CR - CHEST TWO VIEWS (PA/LAT) 2015-06-14 14:35 FINDINGS: Lungs and pleural spaces: Trachea and main bronchi are patent. There is right-sided volume loss. Left upper lobe is hyperinflated. There are centrilobular emphysematous changes bilaterally greatest on the left. Right apical scarring with blebs and bulla. There is an air-fluid level at the right apex and one of the blebs. There is irregular pleural thickening on the right. There are fibrotic changes with bronchiectasis in the right upper lobe. There is fibrosis at both lung bases. There is airspace disease at the lung bases left greater than right. There is a moderately large left pleural effusion. There is trace right pleural effusion. There is minimal right pleural calcification. Heart and vasculature: Heart size is normal. There are coronary artery calcifications.Aorta and main pulmonary artery are normal in caliber. There are vascular calcifications. Mediastinum: There is shift of heart and mediastinal structures to the right. There are shotty mediastinal nodes.Bailey are not optimally evaluated without contrast material. There is a small hiatal hernia. The proximal esophagus is not optimally evaluated. Thyroid: Thyroid is not optimally demonstrated. Bones/joints: There are posttraumatic and postsurgical changes in the right chest wall. There are multiple plates and wires in right sided ribs. There is an old right clavicular fracture. There are degenerative changes in the spine. There are Schmorl's nodes at multiple levels. There is mild loss of height at L1. Soft tissues: unremarkable Upper abdomen: There are no acute abnormalities in the visualized portion of the abdomen.There are irregular calcifications in the upper pole of the left kidney difficult to characterize. IMPRESSION: Postsurgical/posttraumatic changes in the right chest wall with volume loss and mediastinal shift to the right; blebs and bulla at the right apex with air small air-fluid level; fibrotic changes with bronchiectasis in the right upper lobe; emphysema; fibrosis at the lung bases with superimposed air space disease left greater than right, moderately large left effusion and small right effusion; indeterminate left upper pole renal lesion Additional nonemergent findings as described above.
[2017-08-04] MEDS: Acetylcysteine 20% Inhal Soln (4ml) INH SCH ×4 (02:53→19:50)
[2017-08-04] MEDS: Albuterol-Ipratrop 3 mg / 0.5 (3 ml) UD INH SCH ×4 (02:53→19:50)
[2017-08-04] MEDS: Aritificial Tears (15ml) OD SCH ×5 (05:09→21:24)
[2017-08-04] MEDS: carBAMazepine Chew Tab 100 MG Chew Tab PO SCH ×3 (06:29→21:23)
[2017-08-04 06:34] LABS: BASO % 0.5 % (0.0-2.0); EOS # 0.1 K/uL (0.0-0.7); LYMPH # 1.4 K/uL (1.0-4.3); LYMPH % 24.8 % (20.0-40.0); MEAN CELL VOLUME 86.4 fL (80.0-94.0); MEAN CORPUSCULAR HEMOGLOBIN 29.2 pg (27.0-31.0); MEAN CORPUSCULAR HGB CONC 33.8 g/dL (33.0-37.0); MEAN PLATELET VOLUME 8.7 fL (7.2-11.7); MONO # 0.6 K/uL (0.0-0.8); MONO % 10.6 % (0.0-10.0); NEUT # 3.4 K/uL (1.8-7.0); NEUT % 62.1 % (50.0-75.0); NRBC % 0.2 % (0.0-2.0); RBC 3.09 Mil/uL (4.40-5.90); RED CELL DISTRIBUTION WIDTH 15.1 % (11.5-14.5); WHITE BLOOD COUNT 5.5 K/uL (4.8-10.8)
[2017-08-04 07:13] LABS: ALB/GLOB RATIO 0.5 (1.0-2.1); ALBUMIN 2.2 g/dL (3.5-5.0); ALT/SGPT 10 U/L (21-72); AST/SGOT 34 U/L (17-59); BLOOD UREA NITROGEN 7 mg/dL (9-20); CALCIUM 6.6 mg/dl (8.6-10.4); GFR AFRICAN-AMERICAN > 60; GFR NON-AFRICAN AMERICAN > 60
--- NOTE | 2017-08-04 09:07 | RAD ---
HISTORY: central line placed COMPARISON: Chest radiograph dated 08/01/2017 FINDINGS: LUNGS: Right thoracic volume loss. Stable right apical bullous and fibrotic change. Bibasilar fibrotic change. PLEURA: Small left pleural effusion. No pneumothorax apparent. CARDIOVASCULAR: Unchanged. OSSEOUS STRUCTURES: Prior right sided rib repair. Hardware unchanged. VISUALIZED UPPER ABDOMEN: Normal. OTHER FINDINGS: New left internal jugular access central venous catheter with tip in the brachiocephalic vein. IMPRESSION: New left internal jugular access central venous catheter in satisfactory position. No appreciable pneumothorax. No other significant interval change.
[2017-08-04] MEDS: Valproic Acid 250 mg/5 ml UD Cup PO SCH ×4 (09:41→21:24)
[2017-08-04] MEDS: Cefepime 2 GM in Sodium Chloride 0.9% 100 ML IVPB SCH (09:41)
--- NOTE | 2017-08-04 14:36 | CP.PCM.PN ---
Subjective - Date & Time of Evaluation Date of Evaluation: 08/04/17 Time of Evaluation: 14:36 - Subjective Subjective: DISCUSSED DISPOSITION PLAN WITH DR. RUDD. PT NOT EATING PER NURSING STAFF. TPN TO BE STARED TODAY. K 2.9, REPLACED TODAY. PT ALSO ON 2 IV ABX; DR. FOLEY WILL REVIEW CHART AND DOCUMENT THIS EVENING ABX RECOMMENDATIONS. AT THIS POINT PT NOT TO BE REFERRED TO LTACH PER ATTENDING; HE WILL RETURN TO HALL WHERE HE RESIDES. D/C IS PENDING WHETHER PT'S NUTRITIONAL INTAKE IMPROVES, HE CANNOT BE D/C ON TPN TO THE [facility]. DISCUSSED THIS WITH PRIMARY RN. NO FURTHER ORDERS AT THIS TIME. Objective - Vital Signs/Intake and Output Vital Signs (last 24 hours): Temp Pulse Resp BP Pulse Ox 99 F 83 20 127/66 98 08/04/17 00:00 08/04/17 04:00 08/04/17 04:00 08/04/17 04:00 08/04/17 04:00 Intake and Output: 08/04/17 08/04/17 06:59 18:59 Intake Total 535 475 Output Total 400 0 Balance 135 475 - Medications Medications: Current Medications Acetylcysteine (Acetylcysteine 20%) 4 ml INH RQ6 [facility] Last Admin: 08/04/17 13:52 Dose: 4 ml Albuterol/Ipratropium (Duoneb 3 Mg/0.5 Mg (3 Ml) Ud) 3 ml INH RQ6 [facility] Last Admin: 08/04/17 13:52 Dose: 3 ml Artificial Tears (Artificial Tears) 0 ml OD Q4 [facility] Last Admin: 08/04/17 08:00 Dose: 1 drop Carbamazepine (Tegretol) 100 mg PO Q8 [facility] Last Admin: 08/04/17 06:29 Dose: 100 mg Dextrose (Dextrose 5% In Water 1000 Ml) 1,000 mls @ 75 mls/hr IV .[id number] [facility] Last Admin: 08/03/17 22:44 Dose: Not Given Vancomycin/Sodium Chloride (Vancomycin 1 Gm/Ns 200 Ml) 1 gm in 200 mls @ 166.6 mls/hr IVPB Q24H [facility] PRN Reason: Protocol Stop: 08/06/17 17:01 Last Admin: 08/03/17 18:44 Dose: 166.6 mls/hr Azithromycin 500 mg/ Sodium (Chloride) 250 mls @ 250 mls/hr IVPB Q24H [facility] PRN Reason: Protocol Potassium Chloride (Potassium Chloride 20 Meq/100 Ml) 20 meq in 100 mls @ 50 mls/hr IVPB Q2 [facility] Stop: 08/04/17 19:59 Megestrol Acetate (Megace) 400 mg PO DAILY [facility] Oseltamivir Phosphate (Tamiflu Cap) 75 mg PO BID [facility] PRN Reason: Protocol Stop: 08/06/17 09:04 Last Admin: 08/03/17 18:46 Dose: 75 mg Valproate Sodium (Depakene Oral Soln) 250 mg PO QID [facility] Last Admin: 08/04/17 09:41 Dose: 250 mg - Labs Labs: 08/04/17 06:25 08/04/17 06:26 PT 22.4 SECONDS (9.7-12.2) H 08/01/17 04:00 INR 2.0 08/01/17 04:00 APTT 24 SECONDS (21-34) D 08/01/17 04:00
[2017-08-04] MEDS: Azithromycin 500 MG in Sodium Chloride 0.9% 250 ML IVPB SCH (14:44)
[2017-08-04] MEDS: Megestrol Acetate 40 mg/ml Cup PO SCH (14:53)
[2017-08-04] MEDS: Vancomycin 1 gm/NS 200 ml 1 GM/200 ML BAG IVPB SCH (17:15)
[2017-08-04] MEDS ORDERED: TPN #1 IV SCH (18:00)
--- NOTE | 2017-08-04 22:28 | CP.PCM.PN ---
Subjective - Date & Time of Evaluation Date of Evaluation: 08/04/17 Time of Evaluation: 22:28 - Subjective Subjective: CHIEF COMPLAINTS TODAY : TEMP TRENDING DOWN. APPETITE POOR STARTED ON TPN. S/P LT. IJ CATHETER INSERTION TODAY 08/04/17 ROS. HEENT : N. Resp : No SOB wheezing,+VE COUGH-PRODUCTIVE Cardio : No CP, PND orthopnea GI : No abd. Pain, n/v BOX ATTACHER : No headache , focal deficit. Musculoskel : N Ext. : Pedal pulses intact, no edema or calf pain Derm : N Psych : N. PE. Pt. is awake in no distress. V.S As noted in the chart Head ,ear nose,throat and eyes : Normal. Neck : Supple with normal carotids. Lungs: FEW SCATTERED RHONCHI Heart : S1 & S2 normal . . No murmur. S4 + Abd : Soft non tender with normal bowel sounds. Neuro : Moves all ext. with no localized deficit. Ext : No edema with intact pulses. Neg. calf tenderness Derm : No rashes or decubitus ulcer. Radiology/Labs . REVIEWED mrsa NEGATIVE POTASSIUM 2.5 lOW. ALL CULTURES NEGATIVE TO DATE MYCOPLASMA IGM +VE INFLUENZA a AND b- -VE. CXR08/03/17 NOTED Objective - Vital Signs/Intake and Output Vital Signs (last 24 hours): Temp Pulse Resp BP Pulse Ox 97.9 F 87 20 109/59 L 99 08/04/17 20:00 08/04/17 20:00 08/04/17 20:00 08/04/17 20:00 08/04/17 20:00 Intake and Output: 08/04/17 08/05/17 18:59 06:59 Intake Total 750 Output Total 0 Balance 750 - Medications Medications: Current Medications Acetylcysteine (Acetylcysteine 20%) 4 ml INH RQ6 [facility] Last Admin: 08/04/17 19:50 Dose: 4 ml Albuterol/Ipratropium (Duoneb 3 Mg/0.5 Mg (3 Ml) Ud) 3 ml INH RQ6 [facility] Last Admin: 08/04/17 19:50 Dose: 3 ml Artificial Tears (Artificial Tears) 0 ml OD Q4 [facility] Last Admin: 08/04/17 21:24 Dose: 1 drop Carbamazepine (Tegretol) 100 mg PO Q8 [facility] Last Admin: 08/04/17 21:23 Dose: 100 mg Vancomycin/Sodium Chloride (Vancomycin 1 Gm/Ns 200 Ml) 1 gm in 200 mls @ 166.6 mls/hr IVPB Q24H [facility] PRN Reason: Protocol Stop: 08/06/17 17:01 Last Admin: 08/04/17 17:15 Dose: 166.6 mls/hr Azithromycin 500 mg/ Sodium (Chloride) 250 mls @ 250 mls/hr IVPB Q24H [facility] PRN Reason: Protocol Last Admin: 08/04/17 14:44 Dose: 250 mls/hr Multivitamins/Vitamin C 10 ml/Heparin Sodium (Porcine) 1, 000 units/ Potassium Phosphate 15 mmole/ Calcium Gluconate 4 .5 meq/ Amino Acids 1,025.6774 mls @ 42 mls/hr IV .Q24H [facility] Stop: 08/05/17 17:59 Last Admin: 08/04/17 17:15 Dose: 42 mls/hr Fat Emulsion Intravenous (Intralipid 20%) 500 mls @ 42 mls/hr IV QOD [facility] Stop: 08/11/17 10:01 Megestrol Acetate (Megace) 400 mg PO DAILY [facility] Last Admin: 08/04/17 14:53 Dose: 400 mg Oseltamivir Phosphate (Tamiflu Cap) 75 mg PO BID [facility] PRN Reason: Protocol Stop: 08/06/17 09:04 Last Admin: 08/04/17 17:30 Dose: 75 mg Valproate Sodium (Depakene Oral Soln) 250 mg PO QID [facility] Last Admin: 08/04/17 21:24 Dose: 250 mg - Labs Labs: 08/04/17 06:25 08/04/17 06:26 PT 22.4 SECONDS (9.7-12.2) H 08/01/17 04:00 INR 2.0 08/01/17 04:00 APTT 24 SECONDS (21-34) D 08/01/17 04:00 Assessment and Plan (1) Pneumonia Assessment & Plan: CONTINUE iv CEFEPIME 2 G EVERY 12 HOURLY .07/29/17 X 7 DAYS DC iv VANCOMYCIN. F/UDC TAMIFLU 08/01/17 CONTINUE AZITHROMYCIN 500MG IV QD FOR MYCOPLASMA PNEUMONIAE 08/03/17 X 7 DAYS F/U LFTS SPUTUM gRAM STAIN AND CULTURE- Status: Acute (2) Acute hypernatremia Status: Acute (3) Dehydration with hypernatremia Status: Acute (4) Renal insufficiency Status: Acute (5) Seizure disorder Status: Acute (6) Septic shock Status: Acute (7) PVD (peripheral vascular disease) Status: Chronic
--- NOTE | 2017-08-04 23:13 | CP.PCM.PN ---
Subjective - Date & Time of Evaluation Date of Evaluation: 08/04/17 Time of Evaluation: 18:00 - Subjective Subjective: Pt seen and examined at bedside, is not eating well, on TPN, poor apetite, afebrile Objective - Vital Signs/Intake and Output Vital Signs (last 24 hours): Temp Pulse Resp BP Pulse Ox 97.9 F 87 20 109/59 L 99 08/04/17 20:00 08/04/17 20:00 08/04/17 20:00 08/04/17 20:00 08/04/17 20:00 Intake and Output: 08/04/17 08/05/17 18:59 06:59 Intake Total 750 Output Total 0 Balance 750 - Medications Medications: Current Medications Acetylcysteine (Acetylcysteine 20%) 4 ml INH RQ6 [facility] Last Admin: 08/04/17 19:50 Dose: 4 ml Albuterol/Ipratropium (Duoneb 3 Mg/0.5 Mg (3 Ml) Ud) 3 ml INH RQ6 [facility] Last Admin: 08/04/17 19:50 Dose: 3 ml Artificial Tears (Artificial Tears) 0 ml OD Q4 [facility] Last Admin: 08/04/17 21:24 Dose: 1 drop Carbamazepine (Tegretol) 100 mg PO Q8 [facility] Last Admin: 08/04/17 21:23 Dose: 100 mg Azithromycin 500 mg/ Sodium (Chloride) 250 mls @ 250 mls/hr IVPB Q24H [facility] PRN Reason: Protocol Last Admin: 08/04/17 14:44 Dose: 250 mls/hr Multivitamins/Vitamin C 10 ml/Heparin Sodium (Porcine) 1, 000 units/ Potassium Phosphate 15 mmole/ Calcium Gluconate 4 .5 meq/ Amino Acids 1,025.6774 mls @ 42 mls/hr IV .Q24H [facility] Stop: 08/05/17 17:59 Last Admin: 08/04/17 17:15 Dose: 42 mls/hr Fat Emulsion Intravenous (Intralipid 20%) 500 mls @ 42 mls/hr IV QOD [facility] Stop: 08/11/17 10:01 Megestrol Acetate (Megace) 400 mg PO DAILY [facility] Last Admin: 08/04/17 14:53 Dose: 400 mg Valproate Sodium (Depakene Oral Soln) 250 mg PO QID [facility] Last Admin: 08/04/17 21:24 Dose: 250 mg - Labs Labs: 08/04/17 06:25 08/04/17 06:26 PT 22.4 SECONDS (9.7-12.2) H 08/01/17 04:00 INR 2.0 08/01/17 04:00 APTT 24 SECONDS (21-34) D 08/01/17 04:00 - Constitutional Appears: Cachectic, Chronically Ill - Head Exam Head Exam: ATRAUMATIC, NORMAL INSPECTION, NORMOCEPHALIC - Eye Exam Eye Exam: EOMI, Normal appearance, PERRL Pupil Exam: NORMAL ACCOMODATION, PERRL - Respiratory Exam Respiratory Exam: Clear to Ausculation Bilateral, NORMAL BREATHING PATTERN - Cardiovascular Exam Cardiovascular Exam: REGULAR RHYTHM, +S1, +S2. absent: Murmur - GI/Abdominal Exam GI & Abdominal Exam: Soft, Normal Bowel Sounds. absent: Tenderness - Rectal Exam Rectal Exam: Deferred Assessment and Plan (1) COPD (chronic obstructive pulmonary disease) Status: Chronic (2) Seizure disorder Status: Acute (3) Septicemia Status: Acute (4) Septic shock Status: Acute
[2017-08-05] MEDS: Acetylcysteine 20% Inhal Soln (4ml) INH SCH ×4 (02:00→19:40)
[2017-08-05] MEDS: Albuterol-Ipratrop 3 mg / 0.5 (3 ml) UD INH SCH ×4 (02:00→19:36)
[2017-08-05] MEDS: Aritificial Tears (15ml) OD SCH ×6 (04:00→21:30)
[2017-08-05] MEDS: carBAMazepine Chew Tab 100 MG Chew Tab PO SCH ×4 (06:00→21:34)
[2017-08-05 06:30] LABS: BASO % 0.5 % (0.0-2.0); EOS # 0.1 K/uL (0.0-0.7); EOS % 2.8 % (0.0-4.0); LYMPH # 1.5 K/uL (1.0-4.3); LYMPH % 28.2 % (20.0-40.0); MEAN CELL VOLUME 85.2 fL (80.0-94.0); MEAN PLATELET VOLUME 8.2 fL (7.2-11.7); MONO # 0.7 K/uL (0.0-0.8); MONO % 13.5 % (0.0-10.0); NEUT # 2.9 K/uL (1.8-7.0); NRBC % 0.1 % (0.0-2.0); RBC 3.12 Mil/uL (4.40-5.90); RED CELL DISTRIBUTION WIDTH 15.1 % (11.5-14.5); WHITE BLOOD COUNT 5.4 K/uL (4.8-10.8)
[2017-08-05 07:58] LABS: ALB/GLOB RATIO 0.5 (1.0-2.1); ALBUMIN 2.2 g/dL (3.5-5.0); ALT/SGPT 7 U/L (21-72); AST/SGOT 36 U/L (17-59); BLOOD UREA NITROGEN 6 mg/dL (9-20); CALCIUM 7.6 mg/dl (8.6-10.4); GFR AFRICAN-AMERICAN > 60; GFR NON-AFRICAN AMERICAN > 60
--- NOTE | 2017-08-05 08:13 | CP.PCM.PN ---
Subjective - Date & Time of Evaluation Date of Evaluation: 08/05/17 Time of Evaluation: 17:35 - Subjective Subjective: Pt seen and examined, he still have poor apetite, but not in distress, afebrile , foleys in place Objective - Vital Signs/Intake and Output Vital Signs (last 24 hours): Temp Pulse Resp BP Pulse Ox 98.6 F 94 H 20 125/68 95 08/05/17 07:39 08/05/17 07:39 08/05/17 07:39 08/05/17 07:39 08/05/17 07:39 Intake and Output: 08/05/17 08/05/17 06:59 18:59 Intake Total 386 Output Total 550 Balance -164 - Medications Medications: Current Medications Acetylcysteine (Acetylcysteine 20%) 4 ml INH RQ6 [facility] Last Admin: 08/05/17 07:42 Dose: Not Given Albuterol/Ipratropium (Duoneb 3 Mg/0.5 Mg (3 Ml) Ud) 3 ml INH RQ6 [facility] Last Admin: 08/05/17 07:42 Dose: 3 ml Artificial Tears (Artificial Tears) 0 ml OD Q4 [facility] Last Admin: 08/05/17 04:00 Dose: Not Given Carbamazepine (Tegretol) 100 mg PO Q8 [facility] Last Admin: 08/05/17 06:00 Dose: 100 mg Azithromycin 500 mg/ Sodium (Chloride) 250 mls @ 250 mls/hr IVPB Q24H [facility] PRN Reason: Protocol Last Admin: 08/04/17 14:44 Dose: 250 mls/hr Multivitamins/Vitamin C 10 ml/Heparin Sodium (Porcine) 1, 000 units/ Potassium Phosphate 15 mmole/ Calcium Gluconate 4 .5 meq/ Amino Acids 1,025.6774 mls @ 42 mls/hr IV .Q24H [facility] Stop: 08/05/17 17:59 Last Admin: 08/04/17 17:15 Dose: 42 mls/hr Fat Emulsion Intravenous (Intralipid 20%) 500 mls @ 42 mls/hr IV QOD [facility] Stop: 08/11/17 10:01 Megestrol Acetate (Megace) 400 mg PO DAILY [facility] Last Admin: 08/04/17 14:53 Dose: 400 mg Valproate Sodium (Depakene Oral Soln) 250 mg PO QID [facility] Last Admin: 08/04/17 21:24 Dose: 250 mg - Labs Labs: 08/05/17 06:20 08/05/17 06:20 PT 22.4 SECONDS (9.7-12.2) H 08/01/17 04:00 INR 2.0 08/01/17 04:00 APTT 24 SECONDS (21-34) D 08/01/17 04:00 - Constitutional Appears: Chronically Ill - Head Exam Head Exam: ATRAUMATIC, NORMAL INSPECTION, NORMOCEPHALIC - Eye Exam Eye Exam: EOMI, Normal appearance, PERRL Pupil Exam: NORMAL ACCOMODATION, PERRL - Respiratory Exam Respiratory Exam: Clear to Ausculation Bilateral, NORMAL BREATHING PATTERN - Cardiovascular Exam Cardiovascular Exam: REGULAR RHYTHM, +S1, +S2. absent: Murmur - GI/Abdominal Exam GI & Abdominal Exam: Soft, Normal Bowel Sounds. absent: Tenderness - Rectal Exam Rectal Exam: Deferred Assessment and Plan (1) COPD (chronic obstructive pulmonary disease) Status: Chronic (2) Seizure disorder Status: Acute (3) Septicemia Status: Acute (4) Septic shock Status: Acute
[2017-08-05] MEDS ORDERED: Fat Emulsion 20% IV 500 ML IV SCH (10:00)
[2017-08-05] MEDS: Valproic Acid 250 mg/5 ml UD Cup PO SCH ×5 (10:31→21:34)
[2017-08-05] MEDS: Megestrol Acetate 40 mg/ml Cup PO SCH (10:31)
[2017-08-05] MEDS: Dextrose 5%/0.45% NS 1,000 ML IV SCH (13:00)
[2017-08-05] MEDS ORDERED: Potassium Chloride 20 mEq ER Tab PO ONE (14:00)
[2017-08-05] MEDS: Azithromycin 500 MG in Sodium Chloride 0.9% 250 ML IVPB SCH (14:27)
[2017-08-06] MEDS: Aritificial Tears (15ml) OD SCH ×6 (01:03→21:47)
[2017-08-06] MEDS: Acetylcysteine 20% Inhal Soln (4ml) INH SCH ×3 (01:04→19:31)
[2017-08-06] MEDS: Albuterol-Ipratrop 3 mg / 0.5 (3 ml) UD INH SCH ×4 (01:05→19:31)
[2017-08-06] MEDS: Dextrose 5%/0.45% NS 1,000 ML IV SCH ×3 (03:05→21:48)
[2017-08-06] MEDS: carBAMazepine Chew Tab 100 MG Chew Tab PO SCH ×3 (06:03→21:48)
[2017-08-06 08:17] LABS: BASO % 0.8 % (0.0-2.0); EOS # 0.2 K/uL (0.0-0.7); EOS % 2.6 % (0.0-4.0); HEMOGLOBIN 9.8 g/dL (12.0-18.0); LYMPH # 2.2 K/uL (1.0-4.3); LYMPH % 37.6 % (20.0-40.0); MEAN CELL VOLUME 86.4 fL (80.0-94.0); MEAN CORPUSCULAR HEMOGLOBIN 28.9 pg (27.0-31.0); MEAN CORPUSCULAR HGB CONC 33.5 g/dL (33.0-37.0); MEAN PLATELET VOLUME 8.2 fL (7.2-11.7); MONO # 0.8 K/uL (0.0-0.8); MONO % 14.2 % (0.0-10.0); NEUT # 2.7 K/uL (1.8-7.0); NEUT % 44.8 % (50.0-75.0); NRBC % 0.4 % (0.0-2.0); RBC 3.38 Mil/uL (4.40-5.90); RED CELL DISTRIBUTION WIDTH 15.5 % (11.5-14.5)
[2017-08-06 08:29] LABS: ALB/GLOB RATIO 0.5 (1.0-2.1); ALBUMIN 2.4 g/dL (3.5-5.0); ALT/SGPT 10 U/L (21-72); AST/SGOT 31 U/L (17-59); BLOOD UREA NITROGEN 4 mg/dL (9-20); CALCIUM 7.5 mg/dl (8.6-10.4); GFR AFRICAN-AMERICAN > 60; GFR NON-AFRICAN AMERICAN > 60
[2017-08-06] MEDS: Megestrol Acetate 40 mg/ml Cup PO SCH (10:48)
[2017-08-06] MEDS: Valproic Acid 250 mg/5 ml UD Cup PO SCH ×4 (10:49→21:47)
[2017-08-06] MEDS: Azithromycin 500 MG in Sodium Chloride 0.9% 250 ML IVPB SCH (13:33)
--- NOTE | 2017-08-06 14:32 | CP.PCM.PN ---
Subjective - Date & Time of Evaluation Date of Evaluation: 08/06/17 Time of Evaluation: 18:00 - Subjective Subjective: Pt seen and examined at bedside, pt needs peg placement if power of stitch cleaner agrees pt is afebrile,no shortness of breath, Objective - Vital Signs/Intake and Output Vital Signs (last 24 hours): Temp Pulse Resp BP Pulse Ox 98.1 F 102 H 18 145/90 97 08/06/17 08:00 08/06/17 08:00 08/06/17 08:00 08/06/17 08:00 08/06/17 08:00 Intake and Output: 08/06/17 08/06/17 06:59 18:59 Intake Total 1145 Output Total 550 Balance 595 - Medications Medications: Current Medications Acetylcysteine (Acetylcysteine 20%) 4 ml INH RQ6 [facility] Last Admin: 08/06/17 07:43 Dose: 4 ml Albuterol/Ipratropium (Duoneb 3 Mg/0.5 Mg (3 Ml) Ud) 3 ml INH RQ6 [facility] Last Admin: 08/06/17 13:26 Dose: 3 ml Artificial Tears (Artificial Tears) 0 ml OD Q4 [facility] Last Admin: 08/06/17 11:30 Dose: Not Given Carbamazepine (Tegretol) 100 mg PO Q8 [facility] Last Admin: 08/06/17 13:21 Dose: 100 mg Azithromycin 500 mg/ Sodium (Chloride) 250 mls @ 250 mls/hr IVPB Q24H [facility] PRN Reason: Protocol Last Admin: 08/06/17 13:33 Dose: 250 mls/hr Dextrose/Sodium Chloride (Dextrose 5%/0.45% Ns 1000 Ml) 1,000 mls @ 70 mls/hr IV .[id number] [facility] Last Admin: 08/06/17 07:08 Dose: 70 mls/hr Megestrol Acetate (Megace) 400 mg PO DAILY [facility] Last Admin: 08/06/17 10:48 Dose: 400 mg Valproate Sodium (Depakene Oral Soln) 250 mg PO QID [facility] Last Admin: 08/06/17 13:21 Dose: 250 mg - Labs Labs: 08/06/17 07:59 08/06/17 07:59 PT 22.4 SECONDS (9.7-12.2) H 08/01/17 04:00 INR 2.0 08/01/17 04:00 APTT 24 SECONDS (21-34) D 08/01/17 04:00 - Constitutional Appears: No Acute Distress - Head Exam Head Exam: ATRAUMATIC, NORMAL INSPECTION, NORMOCEPHALIC - Eye Exam Eye Exam: EOMI, Normal appearance, PERRL Pupil Exam: NORMAL ACCOMODATION, PERRL - Respiratory Exam Respiratory Exam: Clear to Ausculation Bilateral, NORMAL BREATHING PATTERN - Cardiovascular Exam Cardiovascular Exam: REGULAR RHYTHM, +S1, +S2. absent: Murmur - GI/Abdominal Exam GI & Abdominal Exam: Soft, Normal Bowel Sounds. absent: Tenderness Assessment and Plan (1) COPD (chronic obstructive pulmonary disease) Status: Chronic (2) Seizure disorder Status: Acute (3) Septicemia Status: Acute (4) Septic shock Status: Acute
[2017-08-06] MEDS ORDERED: Bisacodyl 5mg EC Tab PO ONE (16:06)
[2017-08-07] MEDS: Aritificial Tears (15ml) OD SCH ×6 (00:37→21:38)
[2017-08-07] MEDS: Acetylcysteine 20% Inhal Soln (4ml) INH SCH ×4 (02:03→20:46)
[2017-08-07] MEDS: Albuterol-Ipratrop 3 mg / 0.5 (3 ml) UD INH SCH ×4 (02:03→20:46)
[2017-08-07] MEDS: carBAMazepine Chew Tab 100 MG Chew Tab PO SCH ×3 (05:11→21:38)
[2017-08-07] MEDS: Dextrose 5%/0.45% NS 1,000 ML IV SCH ×2 (07:52→22:00)
--- NOTE | 2017-08-07 08:51 | CP.PCM.PN ---
Subjective - Date & Time of Evaluation Date of Evaluation: 08/07/17 Time of Evaluation: 19:00 - Subjective Subjective: Pt seen and evaluated today , pt is more alert, ther is food on his side, he is saying he will try to eat if he is not successful we can try peg placement Objective - Vital Signs/Intake and Output Vital Signs (last 24 hours): Temp Pulse Resp BP Pulse Ox 98.7 F 109 H 20 131/77 95 08/07/17 08:35 08/07/17 08:35 08/07/17 08:35 08/07/17 08:35 08/07/17 08:35 Intake and Output: 08/07/17 08/07/17 06:59 18:59 Intake Total 560 610 Output Total 301 500 Balance 259 110 - Medications Medications: Current Medications Acetylcysteine (Acetylcysteine 20%) 4 ml INH RQ6 [facility] Last Admin: 08/07/17 08:18 Dose: 4 ml Albuterol/Ipratropium (Duoneb 3 Mg/0.5 Mg (3 Ml) Ud) 3 ml INH RQ6 [facility] Last Admin: 08/07/17 08:18 Dose: 3 ml Artificial Tears (Artificial Tears) 0 ml OD Q4 [facility] Last Admin: 08/07/17 05:11 Dose: Not Given Carbamazepine (Tegretol) 100 mg PO Q8 [facility] Last Admin: 08/07/17 05:11 Dose: 100 mg Azithromycin 500 mg/ Sodium (Chloride) 250 mls @ 250 mls/hr IVPB Q24H [facility] PRN Reason: Protocol Last Admin: 08/06/17 13:33 Dose: 250 mls/hr Dextrose/Sodium Chloride (Dextrose 5%/0.45% Ns 1000 Ml) 1,000 mls @ 70 mls/hr IV .[id number] [facility] Last Admin: 08/07/17 07:52 Dose: Not Given Megestrol Acetate (Megace) 400 mg PO DAILY [facility] Last Admin: 08/06/17 10:48 Dose: 400 mg Valproate Sodium (Depakene Oral Soln) 250 mg PO QID [facility] Last Admin: 08/06/17 21:47 Dose: Not Given - Labs Labs: 08/06/17 07:59 08/06/17 07:59 PT 22.4 SECONDS (9.7-12.2) H 08/01/17 04:00 INR 2.0 08/01/17 04:00 APTT 24 SECONDS (21-34) D 08/01/17 04:00 - Constitutional Appears: No Acute Distress - Head Exam Head Exam: ATRAUMATIC, NORMAL INSPECTION, NORMOCEPHALIC - Eye Exam Eye Exam: EOMI, Normal appearance, PERRL Pupil Exam: NORMAL ACCOMODATION, PERRL - Respiratory Exam Respiratory Exam: Clear to Ausculation Bilateral, NORMAL BREATHING PATTERN - Cardiovascular Exam Cardiovascular Exam: REGULAR RHYTHM, +S1, +S2. absent: Murmur - GI/Abdominal Exam GI & Abdominal Exam: Soft, Normal Bowel Sounds. absent: Tenderness Assessment and Plan (1) COPD (chronic obstructive pulmonary disease) Status: Chronic (2) Seizure disorder Status: Acute (3) Septicemia Status: Acute (4) Septic shock Status: Acute
[2017-08-07 08:52] LABS: ALB/GLOB RATIO 0.5 (1.0-2.1); ALBUMIN 2.6 g/dL (3.5-5.0); ALT/SGPT < 6 U/L (21-72); AST/SGOT 33 U/L (17-59); BLOOD UREA NITROGEN 4 mg/dL (9-20); CALCIUM 7.6 mg/dl (8.6-10.4); GFR AFRICAN-AMERICAN > 60; GFR NON-AFRICAN AMERICAN > 60
[2017-08-07 08:55] LABS: BASO # 0.1 K/uL (0.0-0.2); EOS # 0.1 K/uL (0.0-0.7); HEMOGLOBIN 10.8 g/dL (12.0-18.0); LYMPH # 3.6 K/uL (1.0-4.3); LYMPH % 41.7 % (20.0-40.0); MEAN CELL VOLUME 85.2 fL (80.0-94.0); MEAN CORPUSCULAR HEMOGLOBIN 28.6 pg (27.0-31.0); MEAN CORPUSCULAR HGB CONC 33.6 g/dL (33.0-37.0); MEAN PLATELET VOLUME 8.4 fL (7.2-11.7); MONO % 11.8 % (0.0-10.0); NEUT # 3.8 K/uL (1.8-7.0); NEUT % 44.5 % (50.0-75.0); NRBC % 0.1 % (0.0-2.0); RBC 3.79 Mil/uL (4.40-5.90); RED CELL DISTRIBUTION WIDTH 15.7 % (11.5-14.5); WHITE BLOOD COUNT 8.6 K/uL (4.8-10.8)
[2017-08-07] MEDS: Megestrol Acetate 40 mg/ml Cup PO SCH (10:59)
[2017-08-07] MEDS: Valproic Acid 250 mg/5 ml UD Cup PO SCH ×4 (10:59→21:38)
[2017-08-07 11:33] LABS: INR 2.1; PROTHROMBIN TIME 23.4 SECONDS (9.7-12.2)
--- NOTE | 2017-08-07 12:06 | PN ---
DATE: 08/07/2017 LOCATION: 358, bed B. SUBJECTIVE: This is a 77-year-old male seen initially for GI consultation on 08/06/2017 as requested by the admitting medical team, reexamined again today without significant clinical changes. The patient for potential PEG insertion, awaiting consent from the legal guardian. No reported active bleeding, nausea or vomiting, or reported complaint of chest pain or palpitations. The entire chart is reviewed including, but not limited to the most recent lab and radiology study results, current and the previous medication list, current and the previous medical events. Today's lab reports are still pending, but the latest lab report showed hemoglobin 9.8, hematocrit 29.2, with normal platelet count and normal white blood cells, with low BUN and creatinine, low calcium, with low albumin of 2.4. Mycoplasma pneumonia IGM reported to be positive for which the patient had been seen by ID makeup sales consultant. PHYSICAL EXAMINATION: GENERAL: A 77-year-old male. VITAL SIGNS: Afebrile, with pulse of 80, respiratory rate 20 to 22, blood pressure 132/76. HEENT: Showed pale, dry, oral mucous membranes. Nonicteric sclerae. LUNGS: Few scattered crepitations. Decreased air entry at bases. HEART: Positive S1 and S2. ABDOMEN: Soft, with mild generalized tenderness. No mass or organomegaly. No rebound tenderness or guarding. EXTREMITIES: With edematous changes and evidence of muscle wasting syndrome. No clubbing or cyanosis. NEUROLOGIC: No reported new neurological deficits, sensory or motor. No reported new focal deficits. Peripheral pulses are present, but decreased bilaterally. IMPRESSION: 1. Malnutrition with hypoalbuminemia. 2. Poor oral intake with failure to thrive. 3. The patient is a candidate for percutaneous endoscopic gastrostomy tube insertion. 4. Known history of, but not limited to pneumonia. 5. Chronic obstructive pulmonary disease. 6. Hypertension. 7. Seizure disorder. 8. Osteoarthritis as well as history of transient ischemic attack. 9. Anemia, most likely secondary to above. 10. Recent history of septic shock with septicemia, on antibiotics. SUGGESTIONS: 1. Agree with your plan. 2. Central hyperalimentation. 3. Correct any underlying electrolyte imbalance or anticoagulopathy. 4. Further recommendation to follow and the patient to be scheduled for PEG insertion again upon receiving an official consent from the legal guardian and once the patient is more stable clinically. 5. Further recommendations to follow and proton pump inhibitors IV to start. Lexus Wei MD
[2017-08-07] MEDS: Azithromycin 500 MG in Sodium Chloride 0.9% 250 ML IVPB SCH (15:00)
[2017-08-08] MEDS: Aritificial Tears (15ml) OD SCH ×6 (00:05→21:00)
[2017-08-08] MEDS ORDERED: Sodium Chloride 0.9% 1,000 ML IV ONE (01:35)
[2017-08-08] MEDS: Acetylcysteine 20% Inhal Soln (4ml) INH SCH ×3 (01:40→13:35)
[2017-08-08] MEDS: Albuterol-Ipratrop 3 mg / 0.5 (3 ml) UD INH SCH ×3 (01:41→21:03)
--- NOTE | 2017-08-08 02:49 | CP.PCM.PN ---
Subjective - Date & Time of Evaluation Date of Evaluation: 08/08/17 Time of Evaluation: 18:00 - Subjective Subjective: Pt seen and examined, pt is more alert, ther is food on his side, he is saying he will try to eat if he is not successful we can try peg placement Objective - Vital Signs/Intake and Output Vital Signs (last 24 hours): Temp Pulse Resp BP Pulse Ox 99 F 106 H 20 138/75 95 08/08/17 00:00 08/08/17 00:00 08/08/17 00:00 08/08/17 00:00 08/08/17 00:00 Intake and Output: 08/07/17 08/08/17 18:59 06:59 Intake Total 610 560 Output Total 500 400 Balance 110 160 - Medications Medications: Current Medications Acetylcysteine (Acetylcysteine 20%) 4 ml INH RQ6 [facility] Last Admin: 08/08/17 01:40 Dose: Not Given Albuterol/Ipratropium (Duoneb 3 Mg/0.5 Mg (3 Ml) Ud) 3 ml INH RQ6 [facility] Last Admin: 08/08/17 01:41 Dose: Not Given Artificial Tears (Artificial Tears) 0 ml OD Q4 [facility] Last Admin: 08/08/17 00:05 Dose: 1 drop Carbamazepine (Tegretol) 100 mg PO Q8 [facility] Last Admin: 08/07/17 21:38 Dose: Not Given Dextrose/Sodium Chloride (Dextrose 5%/0.45% Ns 1000 Ml) 1,000 mls @ 70 mls/hr IV .[id number] [facility] Last Admin: 08/07/17 07:52 Dose: Not Given Megestrol Acetate (Megace) 400 mg PO DAILY [facility] Last Admin: 08/07/17 10:59 Dose: 400 mg Valproate Sodium (Depakene Oral Soln) 250 mg PO QID [facility] Last Admin: 08/07/17 21:38 Dose: Not Given - Labs Labs: 08/07/17 08:33 08/07/17 08:33 PT 23.4 SECONDS (9.7-12.2) H 08/07/17 11:18 INR 2.1 08/07/17 11:18 APTT 36 SECONDS (21-34) H 08/07/17 11:18 Assessment and Plan (1) COPD (chronic obstructive pulmonary disease) Status: Chronic (2) Seizure disorder Status: Acute (3) Septicemia Status: Acute (4) Septic shock Status: Acute
[2017-08-08] MEDS: carBAMazepine Chew Tab 100 MG Chew Tab PO SCH ×3 (06:00→22:28)
[2017-08-08] MEDS: Valproic Acid 250 mg/5 ml UD Cup PO SCH ×4 (09:39→22:27)
[2017-08-08] MEDS: Megestrol Acetate 40 mg/ml Cup PO SCH (09:40)
--- NOTE | 2017-08-08 10:18 | PN ---
DATE: 08/08/2017 LOCATION: 358, bed B. SUBJECTIVE: This is a 77-year-old male seen and examined in rounds today with the nursing staff at bedside without any reported significant clinical changes. No reported active bleeding, but very poor oral intake. It has to be mentioned that the patient has very poor IV access and needs a central line in the meantime as he appears to be dehydrated and for nutritional support. Today's labs still pending; however, the patient reported to have low hemoglobin and hematocrit with normal white blood cells, normal platelet count, low BUN and creatinine, low calcium with low albumin. His CEA level is reported to be 2.9 with reported positive influenza type A antibody and influenza type B antibodies. Mycoplasma pneumoniae IgM is positive as reported. PHYSICAL EXAMINATION GENERAL: A 77-year-old male. VITAL SIGNS: Afebrile with pulse of 100, respiratory rate of 20 to 22, blood pressure of 134/72. HEENT: Showed pale, dry oral mucous membranes. Nonicteric sclerae. LUNGS: Few scattered crepitation. Decreased air entry at bases. HEART: Positive S1 and S2. ABDOMEN: Soft with mild generalized tenderness. No mass or organomegaly. No rebound tenderness or guarding. EXTREMITIES: With mild lower extremity edematous changes. No clubbing or cyanosis. NEUROLOGIC: No reported new neurological deficits, sensory or motor. IMPRESSION: 1. Failure to thrive. 2. Malnutrition with hypoalbuminemia, hypoproteinemia. 3. Anemia that could be secondary to chronic disease. 4. Recently reported septic shock, gradually improving. 5. Deep venous thrombosis by history. 6. Pneumonia by recent history. 7. Known history of chronic obstructive pulmonary disease, hypertension, with seizure disorder. 8. Known history of osteoarthritis, with reported history of transient ischemic attack before. 9. The patient is a candidate for percutaneous endoscopic gastrostomy insertion. SUGGESTIONS: 1. Continue current management. 2. The patient will need PICC line. 3. We will schedule for a.m. PEG insertion; however, is still awaiting for the legal guardian consent as the patient needs nutritional support. Case discussed with Dr. Ann. Lexus Wei MD [facility] # [id number]
[2017-08-08] MEDS: Dextrose 5%/0.45% NS 1,000 ML IV SCH ×3 (13:50→16:00)
[2017-08-09] MEDS: Aritificial Tears (15ml) OD SCH ×7 (00:12→19:14)
[2017-08-09] MEDS: Dextrose 5%/0.45% NS 1,000 ML IV SCH ×3 (00:57→16:34)
--- NOTE | 2017-08-09 04:55 | CON ---
DATE: 08/06/2017 That is from Lexus Wei MD, to Boo Ibrahim MD. I was called for GI consultation by the admitting MD. The patient is seen and fully examined with the staff in the floor on 08/06/2017 as requested by the admitting medical team. The entire chart is reviewed including but not limited to the most recent lab and radiology study results, current and the previous medication list, current and the previous medical events, allergy to medication list as well as all the available current, and the previous medical records. It has to be mentioned that due to the patient's clinical presentation and mental status, all the information obtained from the medical staff notes, nursing notes as well as half-way reports. HISTORY OF PRESENT ILLNESS: This is a 77-year-old male who was admitted to the hospital through the emergency room due to drop of blood pressure with episodes of hypotension, fever, chills, was found to be unresponsive about 1 to 2 hours prior to his admission to the emergency room from the half-way. At that time, the patient was found to have increased body temperature to about 105. The patient is unable to give accurate history verbally. After being admitted, initial blood workup showed hemoglobin of 11.7, hematocrit 36.3, white blood cells 16.4, leukocytosis of 421, sodium 169, potassium 3.2, BUN 29, creatinine 1.6. Blood glucose level 118. Chest x-ray initial primary report showed positive infiltrate with cardiomegaly. PAST MEDICAL HISTORY: Including mainly, 1. COPD. 2. Osteoarthritis, especially back and post knees. 3. Hypertension. 4. Known history of pneumonia with recurrent bronchitis 5. TIA. 6. Seizure disorder. 7. Dementia 8. Known history of peptic ulcer disease. 9. Detachment of the right upper leg with open approach, insertion of Port-A-Cath. FAMILY HISTORY: Unknown. SOCIAL HISTORY: The patient is a half-way resident. No known recent history of cigarette smoking or alcohol intake. ALLERGIES TO MEDICATIONS: UNCLEAR. CURRENT MEDICATIONS : Medication list, post admission is reviewed. PHYSICAL EXAMINATION: GENERAL: A 77-year-old female, nonverbal to give accurate information, low grade temperature, pulse of 80, respiratory rate 20 to 24, blood pressure 102/50. HEENT: Showed pale dry oral mucoid membrane mildly bilaterally with nonicteric sclerae. LYMPH NODES: No lymphadenitis or lymphadenopathy. LUNGS: Few scattered crepitation with decreased air entry at bases. HEART: Positive S1 and S2. ABDOMEN: Soft with slight distention. Bowel sounds are hypoactive. No mass or organomegaly. No rebound tenderness or guarding. EXTREMITIES: Without significant edema, clubbing or cyanosis. NEUROLOGIC: No reported new neurological deficits, sensory or motor. No reported new focal deficits. Peripheral pulses are present bilaterally but weak. IMPRESSION: 1. Failure to thrive with poor oral intake as reported recently. 2. Hypoalbuminemia with malnutrition. 3. Recent reported abnormal chest x-ray with possible pneumonia and cardiomegaly. 4. Electrolyte imbalance secondary to above with severe dehydration most likely. 5. The patient is a candidate for PEG insertion when he is more stable clinically. 6. Past medical history as mentioned above. SUGGESTIONS: 1. Agree with your plan. 2. Rehydration. 3. Proton pump inhibitors. 4. Flagyl IV. 5. Peripheral hyperalimentation. 6. PEG insertion to be scheduled upon obtaining a consent from the legal guardian. 7. Further recommendation to follow and the stool for occult blood to be ordered as well as cancer markers including CEA and PSA. Further recommendation to follow. Case discussed at length with the admitting medical team on 08/06/2017 before and immediately after my GI consultation. Thank you for letting me participate in your patient's case management. Lexus Wei MD
[2017-08-09] MEDS: carBAMazepine Chew Tab 100 MG Chew Tab PO SCH ×3 (05:16→21:54)
[2017-08-09] MEDS: Acetylcysteine 20% Inhal Soln (4ml) INH SCH ×4 (06:34→19:55)
[2017-08-09] MEDS: Albuterol-Ipratrop 3 mg / 0.5 (3 ml) UD INH SCH ×4 (06:34→19:55)
[2017-08-09] MEDS: Megestrol Acetate 40 mg/ml Cup PO SCH (11:23)
[2017-08-09] MEDS: Valproic Acid 250 mg/5 ml UD Cup PO SCH ×4 (11:24→21:54)
[2017-08-09 13:50] LABS: BASO # 0.1 K/uL (0.0-0.2); BASO % 0.9 % (0.0-2.0); EOS # 0.1 K/uL (0.0-0.7); EOS % 1.3 % (0.0-4.0); LYMPH # 1.8 K/uL (1.0-4.3); LYMPH % 31.8 % (20.0-40.0); MEAN CELL VOLUME 84.4 fL (80.0-94.0); MEAN CORPUSCULAR HEMOGLOBIN 28.5 pg (27.0-31.0); MEAN CORPUSCULAR HGB CONC 33.7 g/dL (33.0-37.0); MEAN PLATELET VOLUME 7.4 fL (7.2-11.7); MONO # 0.8 K/uL (0.0-0.8); MONO % 13.3 % (0.0-10.0); NEUT % 52.7 % (50.0-75.0); RBC 3.07 Mil/uL (4.40-5.90); RED CELL DISTRIBUTION WIDTH 15.3 % (11.5-14.5); WHITE BLOOD COUNT 5.6 K/uL (4.8-10.8)
[2017-08-09 13:58] LABS: HEMOGLOBIN 8.7 g/dL (12.0-18.0)
[2017-08-09 14:08] LABS: INR 3.7
[2017-08-09 14:13] LABS: PROTHROMBIN TIME 40.4 SECONDS (9.7-12.2)
[2017-08-09] MEDS: Azithromycin 500 MG in Sodium Chloride 0.9% 250 ML IVPB SCH (17:33)
--- NOTE | 2017-08-10 00:42 | CP.PCM.PN ---
Subjective - Date & Time of Evaluation Date of Evaluation: 08/09/17 Time of Evaluation: 17:00 - Subjective Subjective: Pt seen and evaluated today, poor apetite, weak and lethargic, peg placement is to be considered will talk to dee Objective - Vital Signs/Intake and Output Vital Signs (last 24 hours): Temp Pulse Resp BP Pulse Ox 97.9 F 81 20 105/73 97 08/10/17 00:30 08/10/17 00:30 08/10/17 00:30 08/10/17 00:30 08/10/17 00:30 Intake and Output: 08/09/17 08/10/17 18:59 06:59 Intake Total 750 Output Total 400 300 Balance 350 -300 - Medications Medications: Current Medications Acetaminophen (Tylenol 650 Mg Supp) 650 mg [place] Q6 PRN PRN Reason: Fever >100.4 F Acetylcysteine (Acetylcysteine 20%) 4 ml INH RQ6 [facility] Last Admin: 08/09/17 19:55 Dose: Not Given Albuterol/Ipratropium (Duoneb 3 Mg/0.5 Mg (3 Ml) Ud) 3 ml INH RQ6 [facility] Last Admin: 08/09/17 19:55 Dose: Not Given Artificial Tears (Artificial Tears) 0 ml OD Q4 [facility] Last Admin: 08/09/17 19:14 Dose: Not Given Carbamazepine (Tegretol) 100 mg PO Q8 [facility] Last Admin: 08/09/17 21:54 Dose: Not Given Dextrose/Sodium Chloride (Dextrose 5%/0.45% Ns 1000 Ml) 1,000 mls @ 125 mls/hr IV .Q8H [facility] Last Admin: 08/09/17 16:34 Dose: 125 mls/hr Azithromycin 500 mg/ Sodium (Chloride) 250 mls @ 250 mls/hr IVPB Q24H [facility] PRN Reason: Protocol Last Admin: 08/09/17 17:33 Dose: 250 mls/hr Megestrol Acetate (Megace) 400 mg PO DAILY [facility] Last Admin: 08/09/17 11:23 Dose: 400 mg Phytonadione (Vitamin K Tab) 10 mg PO DAILY [facility] Stop: 08/13/17 10:01 Valproate Sodium (Depakene Oral Soln) 250 mg PO QID [facility] Last Admin: 08/09/17 21:54 Dose: Not Given - Labs Labs: 08/09/17 13:39 08/07/17 08:33 PT 40.4 SECONDS (9.7-12.2) H* D 08/09/17 13:39 INR 3.7 D 08/09/17 13:39 APTT 36 SECONDS (21-34) H 08/07/17 11:18 - Constitutional Appears: No Acute Distress, Cachectic, Chronically Ill - Head Exam Head Exam: ATRAUMATIC, NORMAL INSPECTION, NORMOCEPHALIC - Eye Exam Eye Exam: EOMI, Normal appearance, PERRL Pupil Exam: NORMAL ACCOMODATION, PERRL - Respiratory Exam Respiratory Exam: Decreased Breath Sounds, Rales, Rhonchi - Cardiovascular Exam Cardiovascular Exam: REGULAR RHYTHM, +S1, +S2. absent: Murmur - GI/Abdominal Exam GI & Abdominal Exam: Soft, Normal Bowel Sounds. absent: Tenderness - Rectal Exam Rectal Exam: Deferred Assessment and Plan (1) COPD (chronic obstructive pulmonary disease) Status: Chronic (2) Seizure disorder Status: Acute (3) Failure to thrive Status: Acute (4) Fever Status: Acute (5) Flu Status: Acute (6) Mycoplasmal pneumonia Status: Acute
[2017-08-10] MEDS: Aritificial Tears (15ml) OD SCH ×6 (00:43→20:00)
[2017-08-10] MEDS: Acetylcysteine 20% Inhal Soln (4ml) INH SCH ×4 (02:32→20:31)
[2017-08-10] MEDS: Albuterol-Ipratrop 3 mg / 0.5 (3 ml) UD INH SCH ×4 (02:33→20:31)
[2017-08-10] MEDS: Dextrose 5%/0.45% NS 1,000 ML IV SCH ×4 (04:05→22:36)
[2017-08-10] MEDS: carBAMazepine Chew Tab 100 MG Chew Tab PO SCH ×3 (05:58→21:21)
--- NOTE | 2017-08-10 06:56 | PN ---
DATE: 08/09/2017 LOCATION: 358, bed B. SUBJECTIVE: This is a 77-year-old male seen and examined in rounds without significant clinical changes, awaiting for a possible PICC line today before PEG insertion to be inserted, still awaiting for the legal guardian consent. The patient still has very poor oral intake to near none and the most recent lab results showed low hemoglobin and hematocrit, increased PT and PTT, with low albumin, but normal CEA level. PHYSICAL EXAMINATION: GENERAL: A 77-year-old male seen in rounds with the staff on the floor. VITAL SIGNS: Afebrile, with pulse of 66, respiratory rate of 20 to 22, blood pressure 108/70. HEENT: Showed pale, dry oral mucous membranes. Nonicteric sclerae. LUNGS: Few scattered crepitation. Decreased air entry at bases. HEART: Positive S1 and S2. ABDOMEN: Soft with mild distention, with mild generalized tenderness. No mass or organomegaly. No rebound tenderness or guarding. EXTREMITIES: With lower extremity edematous changes. No clubbing or cyanosis. NEUROLOGIC: No reported new neurological deficits, sensory or motor. Ne reported new focal deficits. Peripheral pulses are present, but weak bilaterally. IMPRESSION: 1. Failure to thrive. 2. Malnutrition with hypoalbuminemia. 3. Recently reported influenza infection with mycoplasma pneumonia and septicemia. 4. Anemia secondary to above. 5. Coagulopathy of unclear etiology, but possible medication induced. 6. Known history of deep venous thrombosis. 7. Known history of chronic obstructive pulmonary disease, hypertension, with seizure disorder. 8. History of transient ischemic attack, osteoarthritis. 9. The patient is a candidate for percutaneous endoscopic gastrostomy tube insertion upon receiving legal guardian consent and after fresh frozen plasma transfusion to correct his coagulopathy. SUGGESTIONS: 1. Continue current management. 2. Central hyperalimentation with PICC line insertion. 3. Reschedule PEG insertion for a.m. 4. Further recommendations to follow. Lexus Wei MD
[2017-08-10 08:46] LABS: ALB/GLOB RATIO 0.5 (1.0-2.1); ALBUMIN 2.2 g/dL (3.5-5.0); ALT/SGPT 10 U/L (21-72); AST/SGOT 46 U/L (17-59); BLOOD UREA NITROGEN 2 mg/dL (9-20); CALCIUM 7.1 mg/dl (8.6-10.4); GFR AFRICAN-AMERICAN > 60; GFR NON-AFRICAN AMERICAN > 60
[2017-08-10 09:00] LABS: INR 2.4; PROTHROMBIN TIME 26.3 SECONDS (9.7-12.2)
[2017-08-10] MEDS: Megestrol Acetate 40 mg/ml Cup PO SCH ×2 (10:00→10:26)
[2017-08-10] MEDS: Valproic Acid 250 mg/5 ml UD Cup PO SCH ×4 (10:27→21:21)
--- NOTE | 2017-08-10 16:59 | PN ---
DATE: 08/10/2017 LOCATION: 358, bed B. SUBJECTIVE: This is a 77-year-old male, seen and examined in early rounds with the staff in the floor, with again very poor oral intake, was initially scheduled for PEG insertion today; however, I was informed that the legal guardian refused to give telephone consent for the PEG tube insertion, and at this point, case was discussed with the staff in the floor as well as admitting MD, and the procedure was canceled as per the request of the legal guardian. The patient had no other significant clinical presentation. Today's lab showed PT to be 26, INR 2.4, potassium 2.9 with BUN of 2, creatinine 0.4, calcium 7.1, albumin 2.2. PHYSICAL EXAMINATION: GENERAL: A 77-year-old male. VITAL SIGNS: Afebrile with pulse of 82, respiratory rate of 20 to 22, blood pressure of 106/74. HEENT: Showed pale, dry, oral mucous membranes. Nonicteric sclerae. LUNGS: A few scattered crepitation. Decreased air entry at bases. HEART: Positive S1 and S2. ABDOMEN: Soft with slight distention with slight generalized mild tenderness. Bowel sounds are present. No mass or organomegaly. No rebound tenderness or guarding. NEUROLOGIC: No reported new neurological deficits. EXTREMITIES: Lower extremities without clubbing, cyanosis, but mild edematous changes. No reported new focal deficits. IMPRESSION: 1. Malnutrition with hypoalbuminemia, hypoproteinemia. 2. Failure to thrive. 3. Recent history of septic shock, gradually improving. 4. Anemia, most likely secondary to chronic disease. 5. Reported recent history of pneumonia. 6. Chronic obstructive pulmonary disease. 7. Hypertension, seizure disorder, osteoarthritis by history. 8. Known history of transient ischemic attack. 9. Anemia, most likely secondary to above. SUGGESTIONS: 1. Continue current management. 2. Peripheral hyperalimentation. 3. Should the patient's legal guardian change her decision, PEG insertion is to be rescheduled. Otherwise, current management to continue with close observation. Lexus eWi MD [facility] # [id number]
[2017-08-10] MEDS: Azithromycin 500 MG in Sodium Chloride 0.9% 250 ML IVPB SCH (17:29)
[2017-08-10] MEDS ORDERED: PPN #1 IV SCH (18:00)
--- NOTE | 2017-08-10 22:18 | CP.PCM.PN ---
Subjective - Date & Time of Evaluation Date of Evaluation: 08/10/17 Time of Evaluation: 19:00 - Subjective Subjective: Pt seen and examined at bedside, power of tax associate attorney did not agreed for peg placement so we shall send him to [facility] with periphral parental nutrition and hopefully pt will start eating Objective - Vital Signs/Intake and Output Vital Signs (last 24 hours): Temp Pulse Resp BP Pulse Ox 99.0 F 95 H 20 107/56 L 95 08/10/17 16:00 08/10/17 16:00 08/10/17 16:00 08/10/17 16:00 08/10/17 16:00 Intake and Output: 08/10/17 08/11/17 18:59 06:59 Intake Total 520 Output Total 300 Balance 220 - Medications Medications: Current Medications Acetaminophen (Tylenol 650 Mg Supp) 650 mg [place] Q6 PRN PRN Reason: Fever >100.4 F Acetylcysteine (Acetylcysteine 20%) 4 ml INH RQ6 [facility] Last Admin: 08/10/17 20:31 Dose: Not Given Albuterol/Ipratropium (Duoneb 3 Mg/0.5 Mg (3 Ml) Ud) 3 ml INH RQ6 [facility] Last Admin: 08/10/17 20:31 Dose: 3 ml Artificial Tears (Artificial Tears) 0 ml OD Q4 [facility] Last Admin: 08/10/17 20:00 Dose: 1 drop Carbamazepine (Tegretol) 100 mg PO Q8 [facility] Last Admin: 08/10/17 21:21 Dose: Not Given Azithromycin 500 mg/ Sodium (Chloride) 250 mls @ 250 mls/hr IVPB Q24H [facility] PRN Reason: Protocol Last Admin: 08/10/17 17:29 Dose: 250 mls/hr Dextrose/Sodium Chloride (Dextrose 5%/0.45% Ns 1000 Ml) 1,000 mls @ 80 mls/hr IV .[id number] [facility] Last Admin: 08/10/17 10:39 Dose: 80 mls/hr Megestrol Acetate (Megace) 400 mg PO DAILY [facility] Last Admin: 08/10/17 10:00 Dose: Not Given Phytonadione (Vitamin K Tab) 10 mg PO DAILY [facility] Stop: 08/13/17 10:01 Last Admin: 08/10/17 10:26 Dose: 10 mg Valproate Sodium (Depakene Oral Soln) 250 mg PO QID [facility] Last Admin: 08/10/17 21:21 Dose: Not Given - Labs Labs: 08/09/17 13:39 08/10/17 08:16 PT 26.3 SECONDS (9.7-12.2) H D 08/10/17 08:16 INR 2.4 D 08/10/17 08:16 APTT 36 SECONDS (21-34) H 08/07/17 11:18 - Constitutional Appears: No Acute Distress, Cachectic, Chronically Ill - Head Exam Head Exam: ATRAUMATIC, NORMAL INSPECTION, NORMOCEPHALIC - Eye Exam Eye Exam: EOMI, Normal appearance, PERRL Pupil Exam: NORMAL ACCOMODATION, PERRL - Respiratory Exam Respiratory Exam: Clear to Ausculation Bilateral, NORMAL BREATHING PATTERN - Cardiovascular Exam Cardiovascular Exam: REGULAR RHYTHM, +S1, +S2. absent: Murmur - GI/Abdominal Exam GI & Abdominal Exam: Soft, Normal Bowel Sounds. 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
[2017-08-11] MEDS: Albuterol-Ipratrop 3 mg / 0.5 (3 ml) UD INH SCH ×4 (02:15→19:00)
[2017-08-11] MEDS: Acetylcysteine 20% Inhal Soln (4ml) INH SCH ×4 (02:15→19:00)
[2017-08-11] MEDS: Aritificial Tears (15ml) OD SCH ×7 (05:12→21:46)
[2017-08-11] MEDS: carBAMazepine Chew Tab 100 MG Chew Tab PO SCH ×3 (05:12→21:47)
[2017-08-11] MEDS: Megestrol Acetate 40 mg/ml Cup PO SCH (10:44)
[2017-08-11] MEDS: Valproic Acid 250 mg/5 ml UD Cup PO SCH ×4 (10:44→21:46)
[2017-08-11] MEDS: Dextrose 5%/0.45% NS 1,000 ML IV SCH ×2 (10:44→23:35)
--- NOTE | 2017-08-11 17:50 | PN ---
DATE: LOCATION 358, bed B. SUBJECTIVE: This is a 77-year-old male, seen and examined in rounds, without significant clinical changes with very poor oral intake, somewhat poorly cooperative, but responding to verbal and painful stimuli. Denies any abdominal pain, chest pain, or palpitation. No reported significant shortness of breath. The entire chart is reviewed including, but not limited to, the most recent lab and radiology study results, current and previous medication list, current and previous medical events, and today's lab results are still pending. However, the patient still has low hemoglobin and hematocrit with increased PT, but low calcium and low albumin. PHYSICAL EXAMINATION: GENERAL: A 77-year-old male. VITAL SIGNS: Afebrile with pulse of 92, respiratory rate of 20 to 22, blood pressure of 110/62. HEENT: Showed pale, dry oral mucous membranes. Nonicteric sclerae. LUNGS: Few scattered crepitation. Decreased air entry at bases. HEART: Positive S1 and S2. ABDOMEN: Soft. Bowel sounds are present. No mass or organomegaly. No rebound tenderness or guarding. EXTREMITIES: Without significant clubbing, cyanosis, or edema. NEUROLOGIC: No reported new neurological deficits, sensory or motor. No reported new focal deficits. IMPRESSION: 1. Hypoalbuminemia and hypoproteinemia with malnutrition. 2. Failure to thrive. 3. Recent history of septic shock, had been on antibiotic, improving clinically. 4. Pneumonia, chronic obstructive pulmonary disease by history. 5. Anemia secondary to above. 6. Known history of osteoarthritis, seizure disorder, hypertension with transient ischemic attack. SUGGESTION: 1. Continue current management. 2. Control any coagulation disorder. 3. Central hyperalimentation in the meantime. 4. It has to be mentioned that the legal guardian so far refusing PEG insertion as reported to myself by the nursing staff and the nursing practitioner. 5. Further recommendation to follow as per Dr. Wei. Lexus Wei MD
[2017-08-11] MEDS: Azithromycin 500 MG in Sodium Chloride 0.9% 250 ML IVPB SCH (18:15)
[2017-08-11 20:41] LABS: CALCIUM 6.1 mg/dl (8.6-10.4)
[2017-08-11 20:43] LABS: BLOOD UREA NITROGEN < 2 mg/dL (9-20); GFR AFRICAN-AMERICAN > 60; GFR NON-AFRICAN AMERICAN > 60
[2017-08-12] MEDS: Aritificial Tears (15ml) OD SCH ×6 (00:49→20:50)
--- NOTE | 2017-08-12 03:00 | CP.PCM.PN ---
Subjective - Date & Time of Evaluation Date of Evaluation: 08/11/17 Time of Evaluation: 19:00 - Subjective Subjective: pt seen and examined, is afebrile, weak, not eating. i spoke to pt legal power of employee benefits attorney, she is not agreeable to peg placement and thinks he should be sent to skilled nursing with trial of feeding however it is not easy without any proper feeding Objective - Vital Signs/Intake and Output Vital Signs (last 24 hours): Temp Pulse Resp BP Pulse Ox 98.2 F 85 20 102/58 L 98 08/11/17 23:57 08/11/17 23:57 08/11/17 23:57 08/11/17 23:57 08/11/17 23:57 Intake and Output: 08/11/17 08/12/17 18:59 06:59 Intake Total 680 Balance 680 - Medications Medications: Current Medications Acetaminophen (Tylenol 650 Mg Supp) 650 mg [place] Q6 PRN PRN Reason: Fever >100.4 F Acetylcysteine (Acetylcysteine 20%) 4 ml INH RQ6 [facility] Last Admin: 08/11/17 19:00 Dose: Not Given Albuterol/Ipratropium (Duoneb 3 Mg/0.5 Mg (3 Ml) Ud) 3 ml INH RQ6 [facility] Last Admin: 08/11/17 19:00 Dose: Not Given Artificial Tears (Artificial Tears) 0 ml OD Q4 [facility] Last Admin: 08/12/17 00:49 Dose: 1 drop Carbamazepine (Tegretol) 100 mg PO Q8 [facility] Last Admin: 08/11/17 21:47 Dose: Not Given Azithromycin 500 mg/ Sodium (Chloride) 250 mls @ 250 mls/hr IVPB Q24H [facility] PRN Reason: Protocol Last Admin: 08/11/17 18:15 Dose: 250 mls/hr Dextrose/Sodium Chloride (Dextrose 5%/0.45% Ns 1000 Ml) 1,000 mls @ 80 mls/hr IV .[id number] [facility] Last Admin: 08/11/17 10:44 Dose: Not Given Megestrol Acetate (Megace) 400 mg PO DAILY [facility] Last Admin: 08/11/17 10:44 Dose: Not Given Phytonadione (Vitamin K Tab) 10 mg PO DAILY [facility] Stop: 08/13/17 10:01 Last Admin: 08/11/17 10:48 Dose: Not Given Valproate Sodium (Depakene Oral Soln) 250 mg PO QID [facility] Last Admin: 08/11/17 21:46 Dose: Not Given - Labs Labs: 08/09/17 13:39 08/11/17 20:10 PT 26.3 SECONDS (9.7-12.2) H D 08/10/17 08:16 INR 2.4 D 08/10/17 08:16 APTT 36 SECONDS (21-34) H 08/07/17 11:18 - Constitutional Appears: No Acute Distress, Chronically Ill - Head Exam Head Exam: ATRAUMATIC, NORMAL INSPECTION, NORMOCEPHALIC - Eye Exam Eye Exam: EOMI, Normal appearance, PERRL Pupil Exam: NORMAL ACCOMODATION, PERRL - Respiratory Exam Respiratory Exam: Decreased Breath Sounds, Rales, Rhonchi - Cardiovascular Exam Cardiovascular Exam: REGULAR RHYTHM, +S1, +S2. absent: Murmur - GI/Abdominal Exam GI & Abdominal Exam: Soft, Normal Bowel Sounds. absent: Tenderness - Rectal Exam Rectal Exam: Deferred Assessment and Plan (1) COPD (chronic obstructive pulmonary disease) Status: Chronic (2) Seizure disorder Status: Acute (3) Flu Status: Acute (4) Mycoplasmal pneumonia Status: Acute (5) Failure to thrive Status: Acute
[2017-08-12] MEDS: Albuterol-Ipratrop 3 mg / 0.5 (3 ml) UD INH SCH ×4 (03:10→19:25)
[2017-08-12] MEDS: Acetylcysteine 20% Inhal Soln (4ml) INH SCH ×4 (03:10→19:25)
[2017-08-12] MEDS: carBAMazepine Chew Tab 100 MG Chew Tab PO SCH ×3 (05:56→21:51)
[2017-08-12 08:06] LABS: BASO # 0.1 K/uL (0.0-0.2); BASO % 1.4 % (0.0-2.0); EOS # 0.1 K/uL (0.0-0.7); EOS % 3.6 % (0.0-4.0); HEMOGLOBIN 9.1 g/dL (12.0-18.0); LYMPH # 1.7 K/uL (1.0-4.3); LYMPH % 42.3 % (20.0-40.0); MEAN CELL VOLUME 84.2 fL (80.0-94.0); MEAN CORPUSCULAR HEMOGLOBIN 28.5 pg (27.0-31.0); MEAN CORPUSCULAR HGB CONC 33.8 g/dL (33.0-37.0); MEAN PLATELET VOLUME 7.6 fL (7.2-11.7); MONO # 0.6 K/uL (0.0-0.8); MONO % 13.7 % (0.0-10.0); NEUT # 1.6 K/uL (1.8-7.0); RBC 3.18 Mil/uL (4.40-5.90); RED CELL DISTRIBUTION WIDTH 14.8 % (11.5-14.5); WHITE BLOOD COUNT 4.1 K/uL (4.8-10.8)
[2017-08-12 08:10] LABS: INR 1.7
[2017-08-12 08:20] LABS: ALB/GLOB RATIO 0.5 (1.0-2.1); ALBUMIN 2.2 g/dL (3.5-5.0); ALT/SGPT 22 U/L (21-72); AST/SGOT 35 U/L (17-59); BLOOD UREA NITROGEN 2 mg/dL (9-20); CALCIUM 7.7 mg/dl (8.6-10.4); GFR AFRICAN-AMERICAN > 60; GFR NON-AFRICAN AMERICAN > 60
[2017-08-12] MEDS: Megestrol Acetate 40 mg/ml Cup PO SCH ×2 (10:52→11:00)
[2017-08-12] MEDS: Valproic Acid 250 mg/5 ml UD Cup PO SCH ×6 (10:52→21:51)
[2017-08-12] MEDS: Dextrose 5%/0.45% NS 1,000 ML IV SCH (11:20)
--- NOTE | 2017-08-12 15:10 | PN ---
DATE: 08/12/2017 LOCATION: 358, bed B. SUBJECTIVE: This is a 77-year-old male seen and examined in rounds earlier today without any significant clinical changes, with very poor oral intake, incontinent of urine. The entire chart is reviewed including, but not limited to the most recent lab and radiology study results, current and the previous medication list, current and the previous medical events. Case discussed with the staff at length. It has to be mentioned that the most recent lab results done today showed hemoglobin 9.1, hematocrit 26.8, white blood cells 4.1, normal platelet count. PT of 19, with low BUN and creatinine, calcium 7.7, albumin 2.2. No reported active bleeding, actual chest pain or palpitation, or significant shortness of breath. PHYSICAL EXAMINATION: GENERAL: A 77-year-old male. VITAL SIGNS: Afebrile, with pulse of 56, respiratory rate 20 to 22, blood pressure 106/62. HEENT: Showed pale, dry, oral mucous membranes. Nonicteric sclerae. LUNGS: Few scattered crepitations. Decreased air entry at bases. HEART: Positive S1 and S2. ABDOMEN: Soft, with mild distention. No mass or organomegaly. No rebound tenderness or guarding. EXTREMITIES: With lower extremity mild edematous changes. No clubbing or cyanosis. NEUROLOGIC: No reported new neurological deficits, sensory or motor. Peripheral pulses are present bilaterally, but weak. No reported new focal deficits. IMPRESSION: 1. Failure to thrive. 2. Malnutrition with hypoalbuminemia and hypoproteinemia. 3. Chronic obstructive pulmonary disease with mycoplasma pneumonia. 4. Reported recent history of influenza A and B infection. 5. Seizure disorder by history. 6. Anemia, most likely secondary to above. No evidence of active gastrointestinal bleeding so far. 7. Known history of hypertension. 8. Osteoarthritis. 9. Reported history of transient ischemic attack. SUGGESTION: 1. Continue current management. 2. Central hyperalimentation. 3. Again, the legal guardian is refusing any PEG insertion for now. 4. Further recommendations to follow. Lexus Wei MD [facility] # [id number]
[2017-08-12] MEDS ORDERED: PPN#1 IV SCH (18:00)
[2017-08-12] MEDS: Azithromycin 500 MG in Sodium Chloride 0.9% 250 ML IVPB SCH (18:18)
[2017-08-13] MEDS: Aritificial Tears (15ml) OD SCH ×6 (01:00→21:00)
[2017-08-13] MEDS: Acetylcysteine 20% Inhal Soln (4ml) INH SCH ×4 (02:05→20:30)
[2017-08-13] MEDS: Albuterol-Ipratrop 3 mg / 0.5 (3 ml) UD INH SCH ×3 (02:06→20:30)
[2017-08-13] MEDS: carBAMazepine Chew Tab 100 MG Chew Tab PO SCH ×3 (05:08→22:44)
--- NOTE | 2017-08-13 08:59 | CP.PCM.PN ---
Subjective - Date & Time of Evaluation Date of Evaluation: 08/12/17 Time of Evaluation: 18:00 - Subjective Subjective: PT SEEN AND EXAMINED, STILL WEAK, NO CP, SOB, N/V, I TALKED TO HER STATE APPOINTED BLOCKING MACHINE OPERATOR SECOND, SHE DECIDED TO GIVE CONSENT FOR PEG FEEDING AND PT IS FOR PEG PLACEMENT, OVERALL APETITE IS POOR, PT IS WEAK AND LETHARGIC Objective - Vital Signs/Intake and Output Vital Signs (last 24 hours): Temp Pulse Resp BP Pulse Ox 98.7 F 96 H 20 120/76 98 08/13/17 08:00 08/13/17 08:00 08/13/17 08:00 08/13/17 08:00 08/13/17 08:00 Intake and Output: 08/13/17 08/13/17 06:59 18:59 Intake Total 1066 Balance 1066 - Medications Medications: Current Medications Acetaminophen (Tylenol 650 Mg Supp) 650 mg [place] Q6 PRN PRN Reason: Fever >100.4 F Acetylcysteine (Acetylcysteine 20%) 4 ml INH RQ6 [facility] Last Admin: 08/13/17 07:55 Dose: 3 ml Albuterol/Ipratropium (Duoneb 3 Mg/0.5 Mg (3 Ml) Ud) 3 ml INH RQ6 [facility] Last Admin: 08/13/17 07:55 Dose: 3 ml Artificial Tears (Artificial Tears) 0 ml OD Q4 [facility] Last Admin: 08/13/17 05:06 Dose: 1 drop Carbamazepine (Tegretol) 100 mg PO Q8 [facility] Last Admin: 08/13/17 05:08 Dose: 100 mg Azithromycin 500 mg/ Sodium (Chloride) 250 mls @ 250 mls/hr IVPB Q24H [facility] PRN Reason: Protocol Last Admin: 08/12/17 18:18 Dose: 250 mls/hr Chromium/Copper/Manganese/Zinc 1 ml/ Multivitamins/Vitamin C 10 ml/ Amino Acids 1,011 mls @ 42 mls/hr IV .Q24H [facility] Stop: 08/13/17 17:59 Last Admin: 08/12/17 18:27 Dose: 42 mls/hr Fat Emulsion Intravenous (Intralipid 20%) 250 mls @ 42 mls/hr IV MWF@1800 [facility] Megestrol Acetate (Megace) 400 mg PO DAILY [facility] Last Admin: 08/12/17 11:00 Dose: Not Given Phytonadione (Vitamin K Tab) 10 mg PO DAILY [facility] Stop: 08/13/17 10:01 Last Admin: 08/12/17 10:52 Dose: 10 mg Valproate Sodium (Depakene Oral Soln) 250 mg PO QID [facility] Last Admin: 08/12/17 21:51 Dose: Not Given - Labs Labs: 08/12/17 07:58 08/12/17 07:58 PT 19.0 SECONDS (9.7-12.2) H D 08/12/17 07:58 INR 1.7 D 08/12/17 07:58 APTT 36 SECONDS (21-34) H 08/07/17 11:18 Assessment and Plan (1) COPD (chronic obstructive pulmonary disease) Status: Chronic (2) Seizure disorder Status: Acute (3) Fever Status: Acute (4) Flu Status: Acute (5) Mycoplasmal pneumonia Status: Acute
--- NOTE | 2017-08-13 09:00 | CP.PCM.PN ---
Subjective - Date & Time of Evaluation Date of Evaluation: 08/13/17 Time of Evaluation: 16:00 - Subjective Subjective: PT SEEN AND EXAMINED, I TALKED TO HER STATE APPOINTED HOOD MAKER, SHE DECIDED TO GIVE CONSENT FOR PEG FEEDING AND PT IS FOR PEG PLACEMENT, OVERALL APETITE IS POOR, PT IS WEAK AND LETHARGIC Objective - Vital Signs/Intake and Output Vital Signs (last 24 hours): Temp Pulse Resp BP Pulse Ox 98.7 F 96 H 20 120/76 98 08/13/17 08:00 08/13/17 08:00 08/13/17 08:00 08/13/17 08:00 08/13/17 08:00 Intake and Output: 08/13/17 08/13/17 06:59 18:59 Intake Total 1066 Balance 1066 - Medications Medications: Current Medications Acetaminophen (Tylenol 650 Mg Supp) 650 mg [place] Q6 PRN PRN Reason: Fever >100.4 F Acetylcysteine (Acetylcysteine 20%) 4 ml INH RQ6 [facility] Last Admin: 08/13/17 07:55 Dose: 3 ml Albuterol/Ipratropium (Duoneb 3 Mg/0.5 Mg (3 Ml) Ud) 3 ml INH RQ6 [facility] Last Admin: 08/13/17 07:55 Dose: 3 ml Artificial Tears (Artificial Tears) 0 ml OD Q4 [facility] Last Admin: 08/13/17 05:06 Dose: 1 drop Carbamazepine (Tegretol) 100 mg PO Q8 [facility] Last Admin: 08/13/17 05:08 Dose: 100 mg Azithromycin 500 mg/ Sodium (Chloride) 250 mls @ 250 mls/hr IVPB Q24H [facility] PRN Reason: Protocol Last Admin: 08/12/17 18:18 Dose: 250 mls/hr Chromium/Copper/Manganese/Zinc 1 ml/ Multivitamins/Vitamin C 10 ml/ Amino Acids 1,011 mls @ 42 mls/hr IV .Q24H [facility] Stop: 08/13/17 17:59 Last Admin: 08/12/17 18:27 Dose: 42 mls/hr Fat Emulsion Intravenous (Intralipid 20%) 250 mls @ 42 mls/hr IV MWF@1800 [facility] Megestrol Acetate (Megace) 400 mg PO DAILY [facility] Last Admin: 08/12/17 11:00 Dose: Not Given Phytonadione (Vitamin K Tab) 10 mg PO DAILY [facility] Stop: 08/13/17 10:01 Last Admin: 08/12/17 10:52 Dose: 10 mg Valproate Sodium (Depakene Oral Soln) 250 mg PO QID [facility] Last Admin: 08/12/17 21:51 Dose: Not Given - Labs Labs: 08/12/17 07:58 08/12/17 07:58 PT 19.0 SECONDS (9.7-12.2) H D 08/12/17 07:58 INR 1.7 D 08/12/17 07:58 APTT 36 SECONDS (21-34) H 08/07/17 11:18 - Constitutional Appears: No Acute Distress, Confused, Chronically Ill - Head Exam Head Exam: ATRAUMATIC, NORMAL INSPECTION, NORMOCEPHALIC - Eye Exam Eye Exam: EOMI, Normal appearance, PERRL Pupil Exam: NORMAL ACCOMODATION, PERRL - Respiratory Exam Respiratory Exam: Clear to Ausculation Bilateral, NORMAL BREATHING PATTERN - Cardiovascular Exam Cardiovascular Exam: REGULAR RHYTHM, +S1, +S2. absent: Murmur - GI/Abdominal Exam GI & Abdominal Exam: Soft, Normal Bowel Sounds. absent: Tenderness Assessment and Plan (1) COPD (chronic obstructive pulmonary disease) Status: Chronic (2) Seizure disorder Status: Acute (3) Fever Status: Acute (4) Flu Status: Acute (5) Mycoplasmal pneumonia Status: Acute (6) Failure to thrive Assessment & Plan: PEG PLACEMENT Status: Acute
[2017-08-13] MEDS: Megestrol Acetate 40 mg/ml Cup PO SCH (09:27)
[2017-08-13] MEDS: Valproic Acid 250 mg/5 ml UD Cup PO SCH ×5 (09:28→22:35)
--- NOTE | 2017-08-13 16:49 | PN ---
DATE: 08/13/2017 LOCATION: 358, bed B. SUBJECTIVE: This is a 77-year-old male seen and examined in rounds without significant clinical changes, responds to verbal stimuli, but again without any appetite, with poor oral intake in general. No reported chest pain, palpitation, evidence of active bleeding, or significant shortness of breath. The most recent lab result done yesterday showed low hemoglobin and hematocrit. Normal platelet count. Increased PT. The patient also with reported low BUN and creatinine, low calcium and low albumin. It has to be mentioned that more than one time contact to the legal guardian is done by myself as well as the admitting medical team for potential PEG insertion, the legal guardian denied the PEG procedure so far. PHYSICAL EXAMINATION: GENERAL: A 77-year-old male. VITAL SIGNS: Afebrile with pulse of 92, respiratory rate 20 to 22, blood pressure 116/74. HEENT: Shows pale, dry, oral mucous membrane. Nonicteric sclerae. LUNGS: Scattered crepitations bilaterally with decreased air entry at bases. HEART: Positive S1 and S2. ABDOMEN: Soft, slight distention with mild generalized tenderness. No mass or organomegaly. No rebound tenderness or guarding. RECTAL: The patient refused. EXTREMITIES: Without significant edema, clubbing, or cyanosis. NEUROLOGIC: No reported new neurological deficits, sensory or motor. No new reported focal deficits. Peripheral pulses are present bilaterally, but decreased. IMPRESSION: 1. Failure to thrive. 2. Hypoalbuminemia with malnutrition. 3. Recent history of mycoplasma pneumonia with influenza infection. 4. Anemia secondary to above most likely. 5. Coagulopathy of unclear etiology. 6. Reported history of deep vein thrombosis. 7. Hypertension. 8. Chronic obstructive pulmonary disease with seizure disorder. 9. Reported history of transient ischemic attack. SUGGESTION: 1. Continue current management. 2. Peripheral versus central hyperalimentation. 3. No aggressive GI workup in the meantime as per the request of the legal guardian until this case to be discussed at length with her furthermore as well as Dr. Ann. Correct any underlying coagulopathy in the meantime and any underlying electrolyte imbalance. Thank you for letting me participate in your patient's care management. Alaa Salah-Prudencio, MD [facility] # [id number]
[2017-08-13] MEDS: Azithromycin 500 MG in Sodium Chloride 0.9% 250 ML IVPB SCH (17:26)
[2017-08-13] MEDS ORDERED: Fat Emulsion 20% IV 250 ML IV SCH (18:00)
[2017-08-14] MEDS: Aritificial Tears (15ml) OD SCH ×6 (00:27→20:15)
[2017-08-14] MEDS: Acetylcysteine 20% Inhal Soln (4ml) INH SCH ×3 (01:23→13:06)
[2017-08-14] MEDS: Albuterol-Ipratrop 3 mg / 0.5 (3 ml) UD INH SCH ×3 (01:23→13:06)
[2017-08-14] MEDS: carBAMazepine Chew Tab 100 MG Chew Tab PO SCH ×3 (05:32→21:56)
[2017-08-14] MEDS: Valproic Acid 250 mg/5 ml UD Cup PO SCH ×4 (09:36→21:56)
[2017-08-14] MEDS: Megestrol Acetate 40 mg/ml Cup PO SCH (09:36)
--- NOTE | 2017-08-14 10:13 | PN ---
DATE: 08/14/2017 LOCATION: 358, bed B. SUBJECTIVE: This is a 77-year-old male seen early in rounds today with the nursing staff in the floor, appeared to be sleepy, responded well to verbal stimuli with very poor oral intake again. The entire chart is reviewed including, but not limited to the most recent lab and radiology study results, current and the previous medication list, current and the previous medical events. Case discussed with the staff at length. No reported chest pain, palpitation, significant shortness of breath or chills or fever. Today's lab is still pending; however, the most recent lab results showed low hemoglobin and hematocrit, PT of 19, decreased BUN and creatinine, decreased calcium with low albumin. PHYSICAL EXAMINATION: GENERAL: A 77-year-old male. VITAL SIGNS: Afebrile with pulse of 74, respiratory rate 18 to 20, blood pressure 110/74. HEENT: Showed pale, dry oral mucoid membrane. Nonicteric sclerae. LUNGS: Few scattered crepitation. Decreased air entry at bases. HEART: Positive S1 and S2. ABDOMEN: Soft with mild distention. No mass or organomegaly. No rebound tenderness or guarding. EXTREMITIES: With evidence of muscle wasting syndrome, but without significant clubbing or cyanosis or edematous changes. NEUROLOGICAL: No reported new neurological deficits, sensory or motor and no reported new focal deficits. Peripheral pulses are present but weak bilaterally. IMPRESSION: 1. Failure to thrive. 2. Hypoalbuminemia, hypoproteinemia. 3. Malnutrition. 4. Recent history of Mycoplasma pneumoniae as well as influenza infection. 5. Known history of deep vein thrombosis. 6. Chronic obstructive pulmonary disease by history. 7. Hypertension. 8. Seizure disorder by history. 9. Reported history of transient ischemic attack. 10. Anemia most likely secondary to above as there is no evidence of active bleeding. SUGGESTIONS: 1. Continue current management. 2. Central hyperalimentation for nutritional support. 3. Repeat stool for occult blood. Again the legal guardian is against any PEG insertion in the meantime and that was discussed at length with Dr. Ann as well as the staff in the floor. We will follow up closely with you. Lexus Wei MD
[2017-08-14] MEDS ORDERED: **PPN #1 IV SCH (18:00)
[2017-08-14] MEDS: Azithromycin 500 MG in Sodium Chloride 0.9% 250 ML IVPB SCH (20:16)
--- NOTE | 2017-08-14 23:20 | CP.PCM.PN ---
Subjective - Date & Time of Evaluation Date of Evaluation: 08/14/17 Time of Evaluation: 18:35 - Subjective Subjective: Pt seen and examined at bedside, S/P PEG PLACEMENT, IS FEEDING VIA PEG, NO NEW COMPLAINS Objective - Vital Signs/Intake and Output Vital Signs (last 24 hours): Temp Pulse Resp BP Pulse Ox 98.9 F 101 H 18 100/57 L 94 L 08/14/17 15:15 08/14/17 15:15 08/14/17 15:15 08/14/17 15:15 08/14/17 15:15 - Medications Medications: Current Medications Acetaminophen (Tylenol 650 Mg Supp) 650 mg OK Q6 PRN PRN Reason: Fever >100.4 F Acetylcysteine (Acetylcysteine 20%) 4 ml INH RQ6 [facility] Last Admin: 08/14/17 13:06 Dose: Not Given Artificial Tears (Artificial Tears) 0 ml OD Q4 [facility] Last Admin: 08/14/17 20:15 Dose: 2 drop Carbamazepine (Tegretol) 100 mg PO Q8 [facility] Last Admin: 08/14/17 21:56 Dose: Not Given Azithromycin 500 mg/ Sodium (Chloride) 250 mls @ 250 mls/hr IVPB Q24H [facility] PRN Reason: Protocol Last Admin: 08/14/17 20:16 Dose: 250 mls/hr Fat Emulsion Intravenous (Intralipid 20%) 250 mls @ 42 mls/hr IV MWF@1800 [facility] Last Admin: 08/13/17 18:55 Dose: 42 mls/hr Chromium/Copper/Manganese/Zinc 1 ml/ Multivitamins/Vitamin C 10 ml/ Amino Acids 1,011 mls @ 42 mls/hr IV .Q24H [facility] Stop: 08/15/17 17:59 Last Admin: 08/14/17 18:55 Dose: 42 mls/hr Megestrol Acetate (Megace) 400 mg PO DAILY [facility] Last Admin: 08/14/17 09:36 Dose: 400 mg Valproate Sodium (Depakene Oral Soln) 250 mg PO QID [facility] Last Admin: 08/14/17 21:56 Dose: Not Given - Labs Labs: 08/12/17 07:58 08/12/17 07:58 PT 19.0 SECONDS (9.7-12.2) H D 08/12/17 07:58 INR 1.7 D 08/12/17 07:58 APTT 36 SECONDS (21-34) H 08/07/17 11:18 Assessment and Plan (1) COPD (chronic obstructive pulmonary disease) Status: Chronic (2) Seizure disorder Status: Acute (3) Fever Status: Acute (4) Flu Status: Acute (5) Mycoplasmal pneumonia Status: Acute
[2017-08-15] MEDS: Aritificial Tears (15ml) OD SCH ×6 (00:10→20:51)
[2017-08-15] MEDS: Acetylcysteine 20% Inhal Soln (4ml) INH SCH ×3 (01:50→13:08)
[2017-08-15] MEDS: carBAMazepine Chew Tab 100 MG Chew Tab PO SCH ×3 (05:28→18:30)
[2017-08-15] MEDS: Megestrol Acetate 40 mg/ml Cup PO SCH (10:38)
[2017-08-15] MEDS: Valproic Acid 250 mg/5 ml UD Cup PO SCH ×4 (10:39→21:17)
--- NOTE | 2017-08-15 12:41 | PN ---
DATE: LOCATION: 358, bed B. SUBJECTIVE: This 77-year-old male seen and examined in rounds without significant clinical changes or reported active bleeding, but with less oral intake. The entire chart is reviewed including, but not limited to, the most recent lab and radiology study results, current and previous medication list, current and previous medical events. Case discussed with the staff at length. Today's lab results still pending; however, the patient reported to have very low oral intake but no reported chest pain, palpitation, significant shortness of breath, chills, or fever. PHYSICAL EXAMINATION: GENERAL: A 77-year-old male. VITAL SIGNS: Afebrile with pulse of 92, respiratory rate 20 to 22, blood pressure 110/66. HEENT: Showed pale, dry oral mucous membrane. Nonicteric sclerae. LUNGS: Few scattered crepitation. Decreased air entry at bases. HEART: Positive S1 and S2. ABDOMEN: Soft with slight distention and slight tenderness. No mass or organomegaly. No rebound tenderness or guarding. RECTAL: The patient refused. EXTREMITIES: With mild lower extremity edematous changes. No clubbing or cyanosis. NEUROLOGICAL: No reported new neurological deficits, sensory or motor. IMPRESSION: 1. Failure to thrive. 2. Malnutrition. 3. Hypoalbuminemia, hypoproteinemia. 4. Known history of, but not limited to, chronic obstructive pulmonary disease, pneumonia with influenza infection. 5. Reported history of deep vein thrombosis. 6. Known history of hypertension. 7. Seizure disorder by history. 8. Anemia most likely secondary to above, again the patient has no evidence of active bleeding since admission. 9. Reported history of transient ischemic attack. SUGGESTIONS: 1. Continue current management. 2. Again, the patient will need central hyperalimentation. 3. Follow up cancer markers. 4. Guaiac of the stool daily x3. 5. Megace 1 tablet p.o. two times a day. 6. counting. 7. The patient is a candidate for PEG insertion; however, again, no definitive permission from the legal guardian for PEG insertion yet. That will to be discussed again with Dr. Ann. Lexus Wei MD [facility] # [id number]
[2017-08-15] MEDS ORDERED: *** PPN # 2 IV ONE (18:00)
[2017-08-15] MEDS ORDERED: Valproic Acid 250 mg/5 ml UD Cup PO SCH (18:00)
--- NOTE | 2017-08-15 23:24 | CP.PCM.PN ---
Subjective - Date & Time of Evaluation Date of Evaluation: 08/15/17 Time of Evaluation: 20:00 - Subjective Subjective: Pt sen and evaluated, no chest pain, sob, nausea, vomiting, denies any fever, chills, on peg feeds Objective - Vital Signs/Intake and Output Vital Signs (last 24 hours): Temp Pulse Resp BP Pulse Ox 97.8 F 96 H 20 116/70 96 08/15/17 08:58 08/15/17 08:58 08/15/17 08:58 08/15/17 08:58 08/15/17 08:58 Intake and Output: 08/15/17 08/16/17 18:59 06:59 Intake Total 742 Balance 742 - Medications Medications: Current Medications Acetaminophen (Tylenol 650 Mg Supp) 650 mg MS Q6 PRN PRN Reason: Fever >100.4 F Acetylcysteine (Acetylcysteine 20%) 4 ml INH RQ6 [facility] Last Admin: 08/15/17 13:08 Dose: Not Given Artificial Tears (Artificial Tears) 1 ml OD Q4 [facility] Last Admin: 08/15/17 20:51 Dose: 1 drop Carbamazepine (Tegretol) 100 mg PO TID [facility] Last Admin: 08/15/17 18:30 Dose: 100 mg Chromium/Copper/Manganese/Zinc (1 ml/ Amino Acids) 1,001 mls @ 42 mls/hr IV .[id number] [facility] Stop: 08/16/17 17:49 Last Admin: 08/15/17 18:33 Dose: 42 mls/hr Megestrol Acetate (Megace) 400 mg PO DAILY [facility] Last Admin: 08/15/17 10:38 Dose: Not Given Valproate Sodium (Depakene Oral Soln) 250 mg PO QID [facility] Last Admin: 08/15/17 21:17 Dose: 250 mg - Labs Labs: 08/12/17 07:58 08/12/17 07:58 PT 19.0 SECONDS (9.7-12.2) H D 08/12/17 07:58 INR 1.7 D 08/12/17 07:58 APTT 36 SECONDS (21-34) H 08/07/17 11:18 Assessment and Plan (1) COPD (chronic obstructive pulmonary disease) Status: Chronic (2) Seizure disorder Status: Acute (3) Fever Status: Acute (4) Flu Status: Acute (5) Mycoplasmal pneumonia Status: Acute
[2017-08-16] MEDS: Acetylcysteine 20% Inhal Soln (4ml) INH SCH ×4 (02:40→20:11)
[2017-08-16] MEDS: Aritificial Tears (15ml) OD SCH ×6 (04:10→20:46)
[2017-08-16] MEDS: Valproic Acid 250 mg/5 ml UD Cup PO SCH ×4 (10:52→21:17)
[2017-08-16] MEDS: carBAMazepine Chew Tab 100 MG Chew Tab PO SCH ×3 (10:53→17:08)
[2017-08-16] MEDS: Megestrol Acetate 40 mg/ml Cup PO SCH (10:53)
--- NOTE | 2017-08-16 12:19 | PN ---
DATE: LOCATION: 350, bed B. SUBJECTIVE: This is a 77 years old male seen and examined in rounds without significant clinical changes, still with very poor oral intake. The entire chart is reviewed, including but not limited to most recent labs and radiology study results, current and the previous medication list with reported increased PT and PTT before. PHYSICAL EXAMINATION: GENERAL: A 77 years old male, seen in rounds with staff. VITAL SIGNS: Afebrile with pulse of 96, respiratory rate of 20 to 22, blood pressure 106/62. HEENT: Showed pale, dry oral mucous membranes. Nonicteric sclerae. LUNGS: Few scattered crepitation. Decreased air entry at bases. HEART: Positive S1 and S2. ABDOMEN: Soft with mild generalized tenderness. No mass or organomegaly. No rebound tenderness or guarding. EXTREMITIES: Without significant clubbing, cyanosis or edema but evidence of muscle wasting syndrome. NEUROLOGIC: No reported new neurological deficits and no new reported focal deficits. IMPRESSION: 1. Malnutrition. 2. Failure to thrive. 3. Hypoalbuminemia, hypoproteinemia. 4. Known history of chronic obstructive pulmonary disease with pneumonia and influenza infection. 5. Reported history of deep venous thrombosis. 6. Hypertension by history. 7. Seizure disorders. 8. Known history of transient ischemic attack. 9. Anemia secondary to above most likely as no evidence of active bleeding. SUGGESTIONS: 1. Agree with your plan. 2. Central hyperalimentation. 3. Guaiac all the stool every day x3. 4. Further recommendation to follow. Lexus Wei MD
[2017-08-16] MEDS ORDERED: Fat Emulsion 20% IV 250 ML IV SCH ×2 (13:00→18:00)
[2017-08-16] MEDS ORDERED: Phytonadione 10 mg/ml Inj (Adult) SC STA (17:53)
[2017-08-16] MEDS ORDERED: PPN#3 IV ONE (18:00)
--- NOTE | 2017-08-16 23:16 | CP.PCM.PN ---
Subjective - Date & Time of Evaluation Date of Evaluation: 08/16/17 Time of Evaluation: 19:00 - Subjective Subjective: Pt is feeling better, seen and examined by me today, improving, on peg feeding, will transfer to [facility] Objective - Vital Signs/Intake and Output Vital Signs (last 24 hours): Temp Pulse Resp BP Pulse Ox 98 F 99 H 20 103/63 96 08/16/17 16:00 08/16/17 16:00 08/16/17 16:00 08/16/17 16:00 08/16/17 16:00 Intake and Output: 08/16/17 08/17/17 18:59 06:59 Intake Total 336 Balance 336 - Medications Medications: Current Medications Acetaminophen (Tylenol 650 Mg Supp) 650 mg ID Q6 PRN PRN Reason: Fever >100.4 F Acetylcysteine (Acetylcysteine 20%) 4 ml INH RQ6 [facility] Last Admin: 08/16/17 20:11 Dose: Not Given Artificial Tears (Artificial Tears) 1 ml OD Q4 [facility] Last Admin: 08/16/17 20:46 Dose: 1 drop Carbamazepine (Tegretol) 100 mg PO TID [facility] Last Admin: 08/16/17 17:08 Dose: Not Given Chromium/Copper/Manganese/Zinc 1 ml/ Multivitamins/Vitamin C 10 ml/ Amino Acids 1,011 mls @ 42 mls/hr IV .Q24H [facility] Stop: 08/17/17 17:59 Last Admin: 08/16/17 17:06 Dose: 42 mls/hr Fat Emulsion Intravenous (Intralipid 20%) 250 mls @ 42 mls/hr IV MWF [facility] Last Admin: 08/16/17 17:07 Dose: 42 mls/hr Megestrol Acetate (Megace) 400 mg PO DAILY [facility] Last Admin: 08/16/17 10:53 Dose: Not Given Valproate Sodium (Depakene Oral Soln) 250 mg PO QID [facility] Last Admin: 08/16/17 21:17 Dose: Not Given - Labs Labs: 08/12/17 07:58 08/12/17 07:58 PT 19.0 SECONDS (9.7-12.2) H D 08/12/17 07:58 INR 1.7 D 08/12/17 07:58 APTT 36 SECONDS (21-34) H 08/07/17 11:18 Assessment and Plan (1) COPD (chronic obstructive pulmonary disease) Status: Chronic (2) Seizure disorder Status: Acute (3) Fever Status: Acute (4) Flu Status: Acute (5) Mycoplasmal pneumonia Status: Acute
[2017-08-17] MEDS: Acetylcysteine 20% Inhal Soln (4ml) INH SCH ×3 (02:26→13:22)
[2017-08-17] MEDS: Aritificial Tears (15ml) OD SCH ×6 (04:42→21:00)
[2017-08-17] MEDS: Valproic Acid 250 mg/5 ml UD Cup PO SCH ×2 (10:11→15:00)
[2017-08-17] MEDS: Megestrol Acetate 40 mg/ml Cup PO SCH (10:11)
[2017-08-17] MEDS: carBAMazepine Chew Tab 100 MG Chew Tab PO SCH ×2 (10:12→14:58)
[2017-08-17] MEDS ORDERED: Propofol 10 mg/ml Inj (20 ML) ONE (12:24)
[2017-08-17] MEDS ORDERED: Lactated Ringer's 500 ML IV SCH (12:45)
[2017-08-17 14:08] VITALS: RESP 20
[2017-08-17] MEDS: carBAMazepine Chew Tab 100 MG Chew Tab PEG SCH (17:45)
[2017-08-17] MEDS: Valproic Acid 250 mg/5 ml UD Cup PEG SCH ×2 (17:45→21:41)
[2017-08-17] MEDS ORDERED: PPN#4 IV ONE (18:00)
--- NOTE | 2017-08-17 23:57 | CP.PCM.PN ---
Subjective - Date & Time of Evaluation Date of Evaluation: 08/17/17 Time of Evaluation: 18:00 - Subjective Subjective: Pt seen and examined at bedside, s/p peg feeding, no new complains, no complications, pt is weak and lethargic, failure to thrive, is for transfer to care home for further medical managment and care Objective - Vital Signs/Intake and Output Vital Signs (last 24 hours): Temp Pulse Resp BP Pulse Ox 98.2 F 89 20 123/75 95 08/17/17 15:00 08/17/17 15:00 08/17/17 15:00 08/17/17 15:00 08/17/17 15:00 Intake and Output: 08/17/17 08/18/17 18:59 06:59 Intake Total 450 400 Balance 450 400 - Medications Medications: Current Medications Acetaminophen (Tylenol 650 Mg Supp) 650 mg [place] Q6 PRN PRN Reason: Fever >100.4 F Acetylcysteine (Acetylcysteine 20%) 4 ml INH RQ6 [facility] Last Admin: 08/17/17 13:22 Dose: Not Given Artificial Tears (Artificial Tears) 1 ml OD Q4 [facility] Last Admin: 08/17/17 21:00 Dose: 1 drop Carbamazepine (Tegretol) 100 mg PEG TID [facility] Last Admin: 08/17/17 17:45 Dose: 100 mg Valproate Sodium (Depakene Oral Soln) 250 mg PEG QID [facility] Last Admin: 08/17/17 21:41 Dose: 250 mg - Labs Labs: 08/12/17 07:58 08/12/17 07:58 PT 19.0 SECONDS (9.7-12.2) H D 08/12/17 07:58 INR 1.7 D 08/12/17 07:58 APTT 36 SECONDS (21-34) H 08/07/17 11:18 - Constitutional Appears: No Acute Distress, Confused, Cachectic, Chronically Ill - Head Exam Head Exam: ATRAUMATIC, NORMAL INSPECTION, NORMOCEPHALIC - Eye Exam Eye Exam: EOMI, Normal appearance, PERRL Pupil Exam: NORMAL ACCOMODATION, PERRL - Respiratory Exam Respiratory Exam: Clear to Ausculation Bilateral, NORMAL BREATHING PATTERN - Cardiovascular Exam Cardiovascular Exam: REGULAR RHYTHM, +S1, +S2. absent: Murmur - GI/Abdominal Exam GI & Abdominal Exam: Soft, Normal Bowel Sounds. absent: Tenderness Assessment and Plan (1) COPD (chronic obstructive pulmonary disease) Status: Chronic (2) Seizure disorder Status: Acute (3) Fever Status: Acute (4) Flu Status: Acute (5) Mycoplasmal pneumonia Status: Acute
[2017-08-18] MEDS: Aritificial Tears (15ml) OD SCH ×7 (00:43→23:48)
[2017-08-18] MEDS: Acetylcysteine 20% Inhal Soln (4ml) INH SCH ×3 (01:31→13:54)
[2017-08-18] MEDS: carBAMazepine Chew Tab 100 MG Chew Tab PEG SCH ×3 (10:57→18:55)
[2017-08-18] MEDS: Valproic Acid 250 mg/5 ml UD Cup PEG SCH ×4 (10:57→21:49)
--- NOTE | 2017-08-18 11:47 | CP.PCM.PN ---
Subjective - Date & Time of Evaluation Date of Evaluation: 08/18/17 Time of Evaluation: 11:47 - Subjective Subjective: PT SEEN FOR D/C TODAY AND CLEARED PER Juany RUDD TO RETURN TO [facility]. TOLERATING PEG FEEDINGS. PT TO BE FOLLOWED BY DR. RUDD AT [facility]. SW TO ARRANGE TRANSPORTATION TODAY. NO FURTHER ORDERS. -PLACE UNDER THE SERVICE OF DR. RUDD WHILE AT [facility]---CALL UPON ARRIVAL FOR ADMITTING ORDERS. -CONTINUE MEDICATIONS PER THE MED REC FORM---CHANGES CAN BE MADE BY DR. RUDD. -CONTINUE PEG FEEDINGS FOLLOWS: 1) GLUCERNA 1.5 TO RUN CONTINUOUS AT 60 ML/HR. 2) WATER FLUSH 150 ML Q8 HOURS. -MAINTAIN ASPIRATION PRECAUTIONS. MAINTAIN HEAD OF BED ELEVATED TO PREVENT ASPIRATION. -FOR FURTHER ORDERS, CONTACT DR. RUDD'S OFFICE. Objective - Vital Signs/Intake and Output Vital Signs (last 24 hours): Temp Pulse Resp BP Pulse Ox 98.2 F 95 H 20 107/66 96 08/18/17 08:00 08/18/17 08:00 08/18/17 08:00 08/18/17 08:00 08/18/17 08:00 Intake and Output: 08/18/17 08/18/17 06:59 18:59 Intake Total 1030 Balance 1030 - Medications Medications: Current Medications Acetaminophen (Tylenol 650 Mg Supp) 650 mg [place] Q6 PRN PRN Reason: Fever >100.4 F Acetylcysteine (Acetylcysteine 20%) 4 ml INH RQ6 [facility] Last Admin: 08/18/17 07:55 Dose: Not Given Artificial Tears (Artificial Tears) 1 ml OD Q4 [facility] Last Admin: 08/18/17 08:18 Dose: 1 drop Carbamazepine (Tegretol) 100 mg PEG TID [facility] Last Admin: 08/18/17 10:57 Dose: 100 mg Valproate Sodium (Depakene Oral Soln) 250 mg PEG QID [facility] Last Admin: 08/18/17 10:57 Dose: 250 mg - Labs Labs: 08/12/17 07:58 08/12/17 07:58 PT 19.0 SECONDS (9.7-12.2) H D 08/12/17 07:58 INR 1.7 D 08/12/17 07:58 APTT 36 SECONDS (21-34) H 08/07/17 11:18
--- NOTE | 2017-08-18 12:24 | PN ---
DATE: 08/18/2017 LOCATION: 358, bed B. SUBJECTIVE: This is a 77-year-old man post PEG insertion, seen and examined in rounds, tolerating so far PEG feeding. The entire chart is reviewed, including but not limited to most recent labs and radiology study results, current and the previous medication list, current and the previous medical events. Today's lab is still pending due to difficulty obtaining samples from the patient. No reported chest pain, palpitation, active bleeding or shortness of breath. PHYSICAL EXAMINATION: GENERAL: A 77-year-old male. VITAL SIGNS: Afebrile with heart rate of 92, respiratory rate of 20 to 22, blood pressure 114/64. HEENT: Showed pale, dry oral mucous membranes. Nonicteric sclerae. LUNGS: Few scattered mild crepitation. Breathing sounds are present bilaterally. HEART: Positive S1 and S2. ABDOMEN: Soft. Bowel sounds are present. PEG tube is in place without reservoir resistance or bleeding. No mass or organomegaly. Abdominal dressing is intact. EXTREMITIES: Evidence of muscle wasting syndrome. No clubbing, cyanosis or edema, but with right sided below-knee amputation. NEUROLOGIC: No reported new neurological deficits, sensory or motor. No reported new focal deficits. IMPRESSION: 1. Failure to thrive. 2. Malnutrition with hypoalbuminemia. 3. Status post percutaneous endoscopic gastrostomy insertion. 4. Known history of but not limited to coronary artery disease, pneumonia, deep vein thrombosis, hypertension. 5. Anemia secondary to above. 6. Known history of seizure disorder. 7. Reported history of transient ischemic attack before. SUGGESTIONS: 1. Continue current management. 2. Subsequent increase of the rate of feeding as tolerated. 3. Follow up on H and H, white blood cells, and chemistry. Further recommendation to follow. Lexus Wei MD
[2017-08-19] MEDS: Acetylcysteine 20% Inhal Soln (4ml) INH SCH ×3 (01:03→13:34)
[2017-08-19] MEDS: Aritificial Tears (15ml) OD SCH ×4 (04:19→16:58)
--- NOTE | 2017-08-19 08:24 | CP.PCM.PN ---
Subjective - Date & Time of Evaluation Date of Evaluation: 08/18/17 Time of Evaluation: 18:00 - Subjective Subjective: Pt seen and evaluated, is feeling better, afebrile, no shortness of breath, chest pain s/p PEg placement feeding is undergoing no complications Objective - Vital Signs/Intake and Output Vital Signs (last 24 hours): Temp Pulse Resp BP Pulse Ox 98.7 F 93 H 20 110/64 96 08/19/17 07:23 08/19/17 07:23 08/19/17 07:23 08/19/17 07:23 08/19/17 07:23 Intake and Output: 08/19/17 08/19/17 06:59 18:59 Intake Total 1210 Balance 1210 - Medications Medications: Current Medications Acetaminophen (Tylenol 650 Mg Supp) 650 mg [place] Q6 PRN PRN Reason: Fever >100.4 F Acetylcysteine (Acetylcysteine 20%) 4 ml INH RQ6 [facility] Last Admin: 08/19/17 01:03 Dose: Not Given Artificial Tears (Artificial Tears) 1 ml OD Q4 [facility] Last Admin: 08/19/17 04:19 Dose: 1 drop Carbamazepine (Tegretol) 100 mg PEG TID [facility] Last Admin: 08/18/17 18:55 Dose: 100 mg Valproate Sodium (Depakene Oral Soln) 250 mg PEG QID [facility] Last Admin: 08/18/17 21:49 Dose: 250 mg - Labs Labs: 08/12/17 07:58 08/12/17 07:58 PT 19.0 SECONDS (9.7-12.2) H D 08/12/17 07:58 INR 1.7 D 08/12/17 07:58 APTT 36 SECONDS (21-34) H 08/07/17 11:18 - Constitutional Appears: No Acute Distress - Head Exam Head Exam: ATRAUMATIC, NORMAL INSPECTION, NORMOCEPHALIC - Eye Exam Eye Exam: EOMI, Normal appearance, PERRL Pupil Exam: NORMAL ACCOMODATION, PERRL - Respiratory Exam Respiratory Exam: Clear to Ausculation Bilateral, NORMAL BREATHING PATTERN - Cardiovascular Exam Cardiovascular Exam: REGULAR RHYTHM, +S1, +S2. absent: Murmur - GI/Abdominal Exam GI & Abdominal Exam: Soft, Normal Bowel Sounds. absent: Tenderness Assessment and Plan (1) COPD (chronic obstructive pulmonary disease) Status: Chronic (2) Seizure disorder Status: Acute (3) Fever Status: Acute (4) Flu Status: Acute (5) Mycoplasmal pneumonia Status: Acute
[2017-08-19] MEDS: Valproic Acid 250 mg/5 ml UD Cup PEG SCH ×3 (10:56→16:59)
[2017-08-19] MEDS: carBAMazepine Chew Tab 100 MG Chew Tab PEG SCH ×3 (10:56→16:59)
--- NOTE | 2017-08-19 13:49 | PN ---
DATE: 08/19/2017 LOCATION: 358, bed B. SUBJECTIVE: This is a 77-year-old male, post PEG insertion, seen and examined in rounds, tolerating PEG feeding well. The entire chart is reviewed including, but not limited to, the most recent lab and radiology study results, current and previous medication list, current and previous medical events. Case discussed with the staff at length. Most recent lab results showed low hemoglobin and hematocrit with increased PT with low albumin as well as low calcium. Today's labs are still pending. PHYSICAL EXAMINATION GENERAL: A 77-year-old male. VITAL SIGNS: Afebrile with pulse of 94, respiratory rate of 20 to 22, blood pressure of 106/62. HEENT: Showed pale, dry, oral mucous membranes. Nonicteric sclerae. LUNGS: Few scattered crepitation. Decreased air entry at bases. HEART: Positive S1 and S2. ABDOMEN: Soft, with mild generalized tenderness and slight distention. PEG tube is in place, without reported residual bleeding or resistance with well formed stoma covered with clean dressing. Bowel sounds are present. EXTREMITIES: Without significant clubbing, cyanosis, or edema. NEUROLOGIC: No reported new neurological deficits, sensory or motor. No reported new focal deficits. Peripheral pulses are present, but decreased at bases. IMPRESSION: 1. Failure to thrive. 2. Status post percutaneous endoscopy gastrostomy insertion. 3. Malnutrition with hypoalbuminemia and hypoproteinemia. 4. Multiple past medical history including mainly, but not limited to, coronary artery disease, pneumonia, seizure disorder, deep venous thrombosis, as well as transient ischemic attack by history. 5. Anemia most likely secondary to chronic disease. SUGGESTIONS: 1. Agree with your plan. 2. Subsequent increase of PEG tube feeding. 3. Patient may be discharged to [facility] as per Dr. Ann. 4. Further recommendation to follow up only p.r.n. Thank you for letting me participate in your patient's case management. Lexus Wei MD
[2017-08-19 16:24] VITALS: BP 107/65; PULSE 88; TEMP 97.3; O2SAT 95
--- NOTE | 2017-08-20 05:23 | CP.PCM.DIS ---
Provider - Provider Date of Admission: 07/29/17 23:10 Attending physician: Lele Ann MD Time Spent in preparation of Discharge (in minutes): 60 Diagnosis - Discharge Diagnosis (1) COPD (chronic obstructive pulmonary disease) Status: Chronic Priority: High (2) Seizure disorder Status: Acute (3) Fever Status: Acute (4) Flu Status: Acute (5) Mycoplasmal pneumonia Status: Acute Hospital Course - Lab Results Lab Results: Micro Results 08/01/17 06:00 Sputum Gram Stain - Final 08/01/17 06:00 Sputum Sputum Culture - Final Yeast Species 08/01/17 17:00 Blood-Venous Blood Culture - Final NO GROWTH AFTER 5 DAYS 08/01/17 17:00 Blood-Venous Gram Stain - Final TEST NOT PERFORMED 08/01/17 16:30 Blood-Venous Blood Culture - Final NO GROWTH AFTER 5 DAYS 08/01/17 16:30 Blood-Venous Gram Stain - Final TEST NOT PERFORMED 08/05/17 06:18 Naris MRSA Culture - Final MRSA NOT DETECTED 07/29/17 21:44 Blood Blood Culture - Final NO GROWTH AFTER 5 DAYS 07/29/17 21:44 Blood Gram Stain - Final TEST NOT PERFORMED 07/29/17 21:14 Blood Blood Culture - Final NO GROWTH AFTER 5 DAYS 07/29/17 21:14 Blood Gram Stain - Final TEST NOT PERFORMED 08/02/17 15:20 Urine,Brown Urine Culture - Final No Growth (<1,000 CFU/ML) 07/30/17 04:24 Naris MRSA Culture (Admit) - Final MRSA NOT DETECTED 07/29/17 21:55 Urine,Catheterized Urine Culture - Final No Growth (<1,000 CFU/ML) Most Recent Lab Values WBC 4.1 K/uL (4.8-10.8) L 08/12/17 07:58 RBC 3.18 Mil/uL (4.40-5.90) L 08/12/17 07:58 Hgb 9.1 g/dL (12.0-18.0) L 08/12/17 07:58 Hct 26.8 % (35.0-51.0) L 08/12/17 07:58 MCV 84.2 fL (80.0-94.0) 08/12/17 07:58 MCH 28.5 pg (27.0-31.0) 08/12/17 07:58 MCHC 33.8 g/dL (33.0-37.0) 08/12/17 07:58 RDW 14.8 % (11.5-14.5) H 08/12/17 07:58 Plt Count 295 K/uL (130-400) 08/12/17 07:58 MPV 7.6 fL (7.2-11.7) 08/12/17 07:58 Neut % (Auto) 39.0 % (50.0-75.0) L 08/12/17 07:58 Lymph % (Auto) 42.3 % (20.0-40.0) H 08/12/17 07:58 [place] % (Auto) 13.7 % (0.0-10.0) H 08/12/17 07:58 Eos % (Auto) 3.6 % (0.0-4.0) 08/12/17 07:58 Baso % (Auto) 1.4 % (0.0-2.0) 08/12/17 07:58 Neut # (Auto) 1.6 K/uL (1.8-7.0) L 08/12/17 07:58 Lymph # (Auto) 1.7 K/uL (1.0-4.3) 08/12/17 07:58 [place] # (Auto) 0.6 K/uL (0.0-0.8) 08/12/17 07:58 Eos # (Auto) 0.1 K/uL (0.0-0.7) 08/12/17 07:58 Baso # (Auto) 0.1 K/uL (0.0-0.2) 08/12/17 07:58 PT 19.0 SECONDS (9.7-12.2) H D 08/12/17 07:58 INR 1.7 D 08/12/17 07:58 APTT 36 SECONDS (21-34) H 08/07/17 11:18 pO2 35 mm/Hg (30-55) 07/29/17 21:14 VBG pH 7.29 (7.32-7.43) L 07/30/17 00:20 VBG pCO2 49 mmHg (40-60) 07/30/17 00:20 VBG HCO3 23.2 mmol/L 07/29/17 21:14 VBG Total CO2 25.1 mmol/L (22-28) 07/30/17 00:20 VBG O2 Sat (Calc) 22.3 % (40-65) L 07/30/17 00:20 VBG Base Excess -3.4 mmol/L (0.0-2.0) L 07/30/17 00:20 VBG Potassium 4.5 mmol/L (3.6-5.2) 07/30/17 00:20 Sodium 162.0 mmol/l (132-148) H* 07/30/17 00:20 Chloride 135.0 mmol/L (98-107) H 07/30/17 00:20 Glucose 106 mg/dl (75-110) 07/30/17 00:20 Lactate 2.9 mmol/L (0.7-2.1) H 07/30/17 00:20 Crit Value Called To Duran green rn 07/30/17 00:20 Crit Value Called By Kamilah 07/30/17 00:20 Crit Value Read Back Y 07/30/17 00:20 Blood Gas Notified Time 37 07/30/17 00:20 Sodium 141 mmol/L (132-148) 08/12/17 07:58 Potassium 3.6 mmol/L (3.6-5.2) 08/12/17 07:58 Chloride 111 mmol/L (98-107) H 08/12/17 07:58 Carbon Dioxide 22 mmol/L (22-30) 08/12/17 07:58 Anion Gap 13 (10-20) 08/12/17 07:58 BUN 2 mg/dL (9-20) L 08/12/17 07:58 Creatinine 0.5 mg/dL (0.8-1.5) L 08/12/17 07:58 Est GFR ( Amer) > 60 08/12/17 07:58 Est GFR (Non-Af Amer) > 60 08/12/17 07:58 Random Glucose 99 mg/dL (75-110) 08/12/17 07:58 Calcium 7.7 mg/dl (8.6-10.4) L 08/12/17 07:58 Phosphorus 1.9 mg/dL (2.5-4.5) L 08/05/17 06:20 Magnesium 1.6 mg/dL (1.6-2.3) 08/10/17 08:16 Total Bilirubin 1.1 mg/dL (0.2-1.3) 08/12/17 07:58 Direct Bilirubin 0.6 mg/dL (0.0-0.4) H 08/03/17 06:41 AST 35 U/L (17-59) 08/12/17 07:58 ALT 22 U/L (21-72) 08/12/17 07:58 Alkaline Phosphatase 69 U/L (38-126) 08/12/17 07:58 Total Protein 6.8 g/dL (6.3-8.3) 08/12/17 07:58 Albumin 2.2 g/dL (3.5-5.0) L 08/12/17 07:58 Globulin 4.6 gm/dL (2.2-3.9) H 08/12/17 07:58 Albumin/Globulin Ratio 0.5 (1.0-2.1) L 08/12/17 07:58 Carcinoembryonic Ag 2.9 ng/mL (0-3.0) 08/07/17 08:33 Procalcitonin 2.53 NG/ML (0.19-0.49) H 07/29/17 21:35 Venous Blood Potassium 4.5 mmol/L (3.6-5.2) 07/30/17 00:20 Urine Color Dark yellow (YELLOW) 07/29/17 21:52 Urine Clarity Hazy (Clear) 07/29/17 21:52 Urine pH 6.0 (5.0-8.0) 07/29/17 21:52 Ur Specific [place] 1.025 (1.003-1.030) 07/29/17 21:52 Urine Protein 100 mg/dL (NEGATIVE) 07/29/17 21:52 Urine Glucose (UA) Negative mg/dL (Normal) 07/29/17 21:52 Urine Ketones Trace mg/dL (NEGATIVE) 07/29/17 21:52 Urine Blood 1+ (NEGATIVE) H 07/29/17 21:52 Urine Nitrate Positive (NEGATIVE) H 07/29/17 21:52 Urine Bilirubin Moderate (NEGATIVE) 07/29/17 21:52 Urine Urobilinogen 0.2 mg/dL (0.2-1.0) 07/29/17 21:52 Ur Leukocyte Esterase Negative Hui/uL (Negative) 07/29/17 21:52 Urine WBC (Auto) 2 /hpf (0-5) 07/29/17 21:52 Urine RBC (Auto) 5 /hpf (0-3) H 07/29/17 21:52 Ur Squamous Epith Cells 1 /hpf (0-5) 07/29/17 21:52 Amorphous Sediment Few /ul (<OCC) H 07/29/17 21:52 Urine Bacteria Occ (<OCC) H 07/29/17 21:52 Hyaline Casts 1 /lpf (0-2) 07/29/17 21:52 Influenza Typ A,B (EIA) Negative for flu a/b (NEGATIVE) 08/02/17 20:32 Influenza Type A Ab 1:32 titer (<1:8) H 08/03/17 06:41 Influenza Type B Ab 1:16 titer (<1:8) H 08/03/17 06:41 Ur L.pneumophila Ag Negative (NEGATIVE) 08/02/17 20:32 Mycoplasma pneumon IgM Positive (NEGATIVE) H 08/03/17 06:41 - Hospital Course Hospital Course: PT SEEN AND EXAMINED, IS S/P PEG PLACEMENT AND FEEDING IS UNDERGOING, PT HAS NO ACUTE COMPLAINS AND NO COMPLICATIONS SO AFR PT IS FOR DISCHARGE TO [facility] FOR FURTHER MANAGING AND EVALUATIONS -PLACE UNDER MY SERVICE WHILE AT [facility]---CALL UPON ARRIVAL FOR ADMITTING ORDERS. -CONTINUE MEDICATIONS PER THE MED REC FORM. -CONTINUE PEG FEEDINGS FOLLOWS: 1) GLUCERNA 1.5 TO RUN CONTINUOUS AT 60 ML/HR. 2) WATER FLUSH 150 ML Q8 HOURS. -MAINTAIN ASPIRATION PRECAUTIONS. MAINTAIN HEAD OF BED ELEVATED TO PREVENT ASPIRATION. -FOR FURTHER ORDERS, CONTACT DR. ANN'S OFFICE. Discharge Exam - Head Exam Head Exam: ATRAUMATIC, NORMAL INSPECTION, NORMOCEPHALIC - Eye Exam Eye Exam: EOMI, Normal appearance, PERRL Pupil Exam: NORMAL ACCOMODATION, PERRL - ENT Exam ENT Exam: Mucous Membranes Moist - Respiratory Exam Respiratory Exam: Decreased Breath Sounds, Rales - Cardiovascular Exam Cardiovascular Exam: REGULAR RHYTHM - GI/Abdominal Exam GI & Abdominal Exam: Normal Bowel Sounds - Rectal Exam Rectal Exam: Deferred Discharge Plan - Discharge Medications Prescriptions: Acetaminophen [Tylenol 650mg/20.3ml solution UD] 650 mg PO Q6 PRN 999 Days udc PRN Reason: PAIN OR TEMP >101 - Follow Up Plan Condition: GUARDED Disposition: HOME/ ROUTINE Instructions: Peripheral Vascular (Arterial) Disease (DC), Sepsis, Adult (DC) Additional Instructions: -PLACE UNDER THE SERVICE OF DR. ANN WHILE AT [facility]---CALL UPON ARRIVAL FOR ADMITTING ORDERS. -CONTINUE MEDICATIONS PER THE MED REC FORM---CHANGES CAN BE MADE BY DR. ANN. -CONTINUE PEG FEEDINGS FOLLOWS: 1) GLUCERNA 1.5 TO RUN CONTINUOUS AT 60 ML/HR. 2) WATER FLUSH 150 ML Q8 HOURS. -MAINTAIN ASPIRATION PRECAUTIONS. MAINTAIN HEAD OF BED ELEVATED TO PREVENT ASPIRATION. -FOR FURTHER ORDERS, CONTACT DR. ANN'S OFFICE. Referrals: Lexus Flannery [Staff Provider] - Renaldo Velázquez MD [Staff Provider] - Lele Ann MD [Staff Provider] -
== END 2017-08-19 17:57 | DRG 871 ==
LOC: C.ER 20:46 → C.9E 23:10 → C.9I 07-30 02:15 → C.3T 08-05 01:04 → C.9I 08-05 01:34 → C.3T 08-05 01:35
PROVIDERS: ADMIT Internal Medicine; ATTEND Internal Medicine
PROC: 05HN33Z Insertion of Infusion Device into Left Internal Jugular Vein, Percutaneous Approach (ICD-10-PCS; 2017-08-03)
PROC: 0DH63UZ Insertion of Feeding Device into Stomach, Percutaneous Approach (ICD-10-PCS; principal; 2017-08-17 12:30)
PROC: 3E0G76Z Introduction of Nutritional Substance into Upper GI, Via Natural or Artificial Opening (ICD-10-PCS; 2017-08-18)
DX: A41.9 Sepsis, unspecified organism (principal); R65.21 Severe sepsis with septic shock; J15.7 Pneumonia due to Mycoplasma pneumoniae; E87.0 Hyperosmolality and hypernatremia; J44.0 Chronic obstructive pulmonary disease with (acute) lower respiratory infection; E46 Unspecified protein-calorie malnutrition; E86.0 Dehydration; E86.1 Hypovolemia; F03.90 Unspecified dementia, unspecified severity, without behavioral disturbance, psychotic disturbance, mood disturbance, and anxiety; G40.909 Epilepsy, unspecified, not intractable, without status epilepticus; R62.7 Adult failure to thrive; Z86.73 Personal history of transient ischemic attack (TIA), and cerebral infarction without residual deficits; I70.25 Atherosclerosis of native arteries of other extremities with ulceration; L98.499 Non-pressure chronic ulcer of skin of other sites with unspecified severity; J10.1 Influenza due to other identified influenza virus with other respiratory manifestations; D63.8 Anemia in other chronic diseases classified elsewhere; Z51.5 Encounter for palliative care

== ENCOUNTER 2017-08-24 11:24 | Inpatient (IN) | payer MEDICARE, MEDICAID ==
[2017-08-24 11:24] VITALS: BMI 16.2
[2017-08-24] MEDS ORDERED: Albuterol-Ipratrop 3 mg / 0.5 (3 ml) UD ONE (11:54)
--- NOTE | 2017-08-24 12:04 | C.PDOC ---
History Of Present Illness LIMITED DUE TO DEMENTIA, CLIN COND REFERRED FROM [facility] FOR FEVER UNK DURATION. DC S/P SEPSIS 08/19 PMHx Arthritis (BACK; KNEE R>L), Asthma, COPD, Severe Dementia, HTN, Pneumonia, Seizures, TIA, Right AKA. ROS UTO EXAM MOD DIST MOD TOX HEENT PERRLA MMM LUNGS BRONCHIAL RICKY RHONCHI CV RRR EXT R AKA SKIN PRESSURE ULCER L HEEL REMAINDER NEG Time Seen by Provider: 08/24/17 12:03 Chief Complaint (Nursing): Fever History Per: Patient History/Exam Limitations: clinical condition (dementia) Onset/Duration Of Symptoms: Unknown Current Symptoms Are (Timing): Still Present Associated Symptoms: Fever Past Medical History Reviewed: Historical Data, Nursing Documentation, Vital Signs Vital Signs: Last Vital Signs Temp 100.4 F H 08/24/17 12:41 Pulse 107 H 08/24/17 12:41 Resp 38 H 08/24/17 11:27 BP 106/57 L 08/24/17 11:27 Pulse Ox 90 L 08/24/17 14:19 - Medical History PMH: Anemia, Arthritis (BACK; KNEE R>L), Asthma, COPD, Dementia, HTN, Pneumonia , Seizures, TIA Denies: Chronic Kidney Disease Other Surgeries: right AKA - [facility] Procedures DETACHMENT AT RIGHT UPPER LEG, MID, OPEN APPROACH (11/02/16) INSERT INFUSION DEV IN L INT JUGULAR VEIN, PERC (07/29/17) INSERTION OF FEEDING DEVICE INTO STOMACH, PERC APPROACH (07/29/17) INSERTION OF INFUSION DEV INTO SUP VENA CAVA, PERC APPROACH (11/02/16) INTRODUCTION OF NUTRITIONAL INTO UP GI, VIA OPENING (07/29/17) Family History: States: Unknown Family Hx - Social History Hx Alcohol Use: No Hx Substance Use: No - Immunization History Hx Tetanus Toxoid Vaccination: No Hx Influenza Vaccination: Yes Hx Pneumococcal Vaccination: No Review Of Systems Review Of Systems: ROS cannot be obtained secondary to pt's inabilty to answer questions. Constitutional: Positive for: Fever Physical Exam - Physical Exam Appears: Toxic (moderate), In Acute Distress (moderate) Skin: Warm, Dry, Other (pressure ulcer left heel) Eye(s): bilateral: Normal Inspection, PERRL, EOMI Oral Mucosa: Moist Neck: Normal ROM, Supple Chest: Symmetrical Cardiovascular: Rhythm Regular Respiratory: Rhonchi, Other (bronchial congestion) Gastrointestinal/Abdominal: Normal Exam, Soft, No Tenderness Back: Normal Inspection Extremity: Other (right AKA) Neurological/Psych: Oriented x3 ED Course And Treatment - Laboratory Results Result Diagrams: 08/24/17 12:43 08/24/17 13:41 ECG: Interpreted By Me ECG Rhythm: Sinus Tachycardia Rate From EC O2 Sat by Pulse Oximetry: 90 Pulse Ox Interpretation: Abnormal Progress - Re-Evaluation Re-evaluation Note: 08/24/17 12:36 D/W DR RUDD WILL ADMIT 08/24/17 13:11 CODE SEPSIS ACTIVATED 08/24/17 13:49 D/W DR AVITIA C/F ICU WILL EVAL 08/24/17 14:03 INCR RESP DISTRESS. S/P EVAL DR AVITIA, ACCEPTS FOR ICU. AGREES W ELOY LEO - Data Reviewed Data Reviewed: Lab, Diagnostic imaging, EKG, Old records - Critical Care Citical Care: Excluding Proc Time Critical Care Time: 90 minutes - Continuity of Care Discussed patient case with:: PMD Disposition Counseled Patient/Family Regarding: Studies Performed, Diagnosis - Disposition Disposition: HOSPITALIZED Disposition Time: 13:12 Condition: STABLE - POA Present On Arrival: None - Clinical Impression Clinical Impression: Sepsis - Scribe Statement The provider has reviewed the documentation as recorded by the Scribe (Kaylyn Tinajero) Provider Attestation: All medical record entries made by the Scribe were at my direction and personally dictated by me. I have reviewed the chart and agree that the record accurately reflects my personal performance of the history, physical exam, medical decision making, and the department course for this patient. I have also personally directed, reviewed, and agree with the discharge instructions and disposition.
[2017-08-24] MEDS ORDERED: Cefepime IV 2 gm in Dextrose 2 GM/100 ML BAG IVPB STA (12:33)
[2017-08-24 12:47] LABS: VENOUS BLOOD GAS BASE EXCESS 1.1 mmol/L (0.0-2.0); VENOUS BLOOD GAS PCO2 37 mmHg (40-60); VENOUS BLOOD GAS PO2 42 mm/Hg (30-55); VENOUS BLOOD PH 7.44 (7.32-7.43)
[2017-08-24 12:49] LABS: BASO # 0.1 K/uL (0.0-0.2); BASO % 0.9 % (0.0-2.0); EOS % 0.5 % (0.0-4.0); LYMPH # 1.2 K/uL (1.0-4.3); MEAN CELL VOLUME 83.9 fL (80.0-94.0); MEAN CORPUSCULAR HEMOGLOBIN 28.2 pg (27.0-31.0); MEAN CORPUSCULAR HGB CONC 33.6 g/dL (33.0-37.0); MEAN PLATELET VOLUME 8.8 fL (7.2-11.7); MONO # 0.7 K/uL (0.0-0.8); MONO % 8.6 % (0.0-10.0); NEUT # 6.4 K/uL (1.8-7.0); NRBC % 0.1 % (0.0-2.0); RBC 3.96 Mil/uL (4.40-5.90); RED CELL DISTRIBUTION WIDTH 16.1 % (11.5-14.5)
[2017-08-24 12:52] LABS: HEMOGLOBIN 11.2 g/dL (12.0-18.0); WHITE BLOOD COUNT 8.5 K/uL (4.8-10.8)
[2017-08-24 12:57] LABS: INR 1.3; PROTHROMBIN TIME 14.2 SECONDS (9.7-12.2)
--- NOTE | 2017-08-24 12:57 | RAD ---
HISTORY: Sepsis Patient COMPARISON: CT chest without contrast from 08/03/2017 FINDINGS: LUNGS: There is redemonstration of low lung volume on the right. The left lung is well inflated and clear. PLEURA: No significant pleural effusion identified, no pneumothorax apparent. CARDIOVASCULAR: Shift of mediastinum to the right. OSSEOUS STRUCTURES: There are postsurgical changes in the right lower ribs. . VISUALIZED UPPER ABDOMEN: Normal. OTHER FINDINGS: None. IMPRESSION: Stable postsurgical changes in the right lung with low lung volume and shift of mediastinal to the right. No acute findings.
[2017-08-24 13:03] LABS: SQUAMOUS EPITHIAL < 1 /hpf (0-5); URINE BACTERIA RARE (<OCC); URINE BILIRUBIN NEGATIVE (NEGATIVE); URINE BLOOD NEGATIVE (NEGATIVE); URINE CLARITY Hazy (Clear); URINE COLOR Yellow (YELLOW); URINE GLUCOSE (UA) NORMAL (Normal); URINE LEUKOCYTE ESTERASE NEG Leu/uL (Negative); URINE PROTEIN NEGATIVE (NEGATIVE); URINE UROBILINOGEN NORMAL mg/dL (0.2-1.0)
[2017-08-24] MEDS ORDERED: Sodium Chloride 0.9% 2,000 ML ONE (13:10)
[2017-08-24] MEDS ORDERED: Albuterol 0.083% Inhal Sol (2.5 mg/3 mL) UD INH STA (13:47)
[2017-08-24] MEDS ORDERED: Albuterol 0.083% Inhal Sol (2.5 mg/3 mL) UD ONE (13:56)
[2017-08-24 14:16] LABS: ALB/GLOB RATIO 0.5 (1.0-2.1); ALBUMIN 1.7 g/dL (3.5-5.0); ALT/SGPT 8 U/L (21-72); AST/SGOT 29 U/L (17-59); BLOOD UREA NITROGEN 19 mg/dL (9-20); GFR AFRICAN-AMERICAN > 60; GFR NON-AFRICAN AMERICAN > 60
[2017-08-24 14:26] LABS: CALCIUM 5.7 mg/dl (8.6-10.4)
[2017-08-24] MEDS ORDERED: Calcium Gluconate 4.65 MEQ in Dextrose 5% In Water 100 ML IV STA (14:27)
--- NOTE | 2017-08-24 15:37 | CP.PCM.CON ---
<Niraj Negrete - Last Filed: 08/24/17 16:54> History of Present Illness - History of Present Illness History of Present Illness: CRITICAL CARE CONSULT NOTE. 77 year old male with PMHx of Arthritis, Asthma, COPD, Severe Dementia, HTN, Pneumonia, Seizures, TIA, and Right AKA presents from [facility] due to fever of an unknown duration. ROS could not be done due to patient's mental status. History obtained from the chart. Review of Systems - Review of Systems Systems not reviewed;Unavailable: Intubated Past Patient History - Infectious Disease Hx of Infectious Diseases: None - Past Medical History & Family History Past Medical History?: Yes - Past Social History Smoking Status: Unknown If Ever Smoked - CARDIAC Hx Hypertension: Yes - PULMONARY Hx Asthma: Yes Hx Chronic Obstructive Pulmonary Disease (COPD): Yes Hx Pneumonia: Yes - NEUROLOGICAL Hx Dementia: Yes Hx Seizures: Yes Hx Transient Ischemic Attacks (TIA): Yes - HEENT Hx HEENT Problems: Yes Other/Comment: RT EYELID DROOP - RENAL Hx Chronic Kidney Disease: No - ENDOCRINE/METABOLIC Hx Endocrine Disorders: No - HEMATOLOGICAL/ONCOLOGICAL Hx Anemia: Yes - INTEGUMENTARY Hx Dermatological Problems: Yes Other/Comment: multiple wounds - MUSCULOSKELETAL/RHEUMATOLOGICAL Hx Arthritis: Yes (BACK; KNEE R>L) - GASTROINTESTINAL Hx Gastrointestinal Disorders: No - GENITOURINARY/GYNECOLOGICAL Hx Genitourinary Disorders: Yes Hx Incontinence: Yes - PSYCHIATRIC Hx Substance Use: No - SURGICAL HISTORY Hx Surgeries: Yes Hx Amputation: Yes (right AKA) - ANESTHESIA Hx Anesthesia: Yes Hx Anesthesia Reactions: No Hx Malignant Hyperthermia: No Meds Allergies/Adverse Reactions: Allergies Allergy/AdvReac Type Severity Reaction Status Date / Time No Known Allergies Allergy Verified 07/25/17 01:13 - Medications Medications: Current Medications Acetaminophen (Tylenol 325 Mg Supp) 975 mg MT ONCE PRN PRN Reason: Fever >100.4 F Physical Exam - Constitutional Appears: Older Than Stated Age, Cachectic, Chronically Ill - Head Exam Head Exam: ATRAUMATIC, NORMAL INSPECTION, NORMOCEPHALIC - Eye Exam Pupil Exam: PERRL - ENT Exam ENT Exam: Mucous Membranes Dry - Neck Exam Neck exam: Positive for: Normal Inspection - Respiratory Exam Respiratory Exam: Rales (B/L ). absent: Clear to Auscultation Bilateral Additional comments: Intubated - Cardiovascular Exam Cardiovascular Exam: Tachycardia, REGULAR RHYTHM, +S1, +S2. absent: RRR - GI/Abdominal Exam GI & Abdominal Exam: Soft. 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 Healing Ulcer in Left Knee - Neurological Exam Neurological exam: Altered Results - Vital Signs Recent Vital Signs: Last Vital Signs Temp 99.3 F 08/24/17 14:46 Pulse 116 H 08/24/17 14:46 Resp 25 H 08/24/17 14:46 BP 131/73 08/24/17 14:46 Pulse Ox 97 08/24/17 14:46 - Labs Result Diagrams: 08/24/17 12:43 08/24/17 13:41 Labs: Laboratory Results - last 24 hr 08/24/17 08/24/17 08/24/17 12:43 12:43 12:43 WBC 8.5 D RBC 3.96 L Hgb 11.2 L D Hct 33.2 L MCV 83.9 MCH 28.2 MCHC 33.6 RDW 16.1 H Plt Count 300 MPV 8.8 Neut % (Auto) 76.0 H Lymph % (Auto) 14.0 L [place] % (Auto) 8.6 Eos % (Auto) 0.5 Baso % (Auto) 0.9 Neut # (Auto) 6.4 Lymph # (Auto) 1.2 [place] # (Auto) 0.7 Eos # (Auto) 0.0 Baso # (Auto) 0.1 PT 14.2 H INR 1.3 APTT 30 pO2 42 VBG pH 7.44 H VBG pCO2 37 L VBG HCO3 25.3 VBG Total CO2 26.2 VBG O2 Sat (Calc) 81.7 H VBG Base Excess 1.1 VBG Potassium 3.9 Sodium 137.0 Chloride 104.0 Glucose 122 H Lactate 2.2 H Potassium Carbon Dioxide Anion Gap BUN Creatinine Est GFR ( Amer) Est GFR (Non-Af Amer) Random Glucose Calcium Phosphorus Magnesium Total Bilirubin AST ALT Alkaline Phosphatase Total Protein Albumin Globulin Albumin/Globulin Ratio Venous Blood Potassium 3.9 Urine Color Urine Clarity Urine pH Ur Specific [place] Urine Protein Urine Glucose (UA) Urine Ketones Urine Blood Urine Nitrate Urine Bilirubin Urine Urobilinogen Ur Leukocyte Esterase Urine WBC (Auto) Urine RBC (Auto) Ur Squamous Epith Cells Urine Bacteria 08/24/17 08/24/17 12:43 13:41 WBC RBC Hgb Hct MCV MCH MCHC RDW Plt Count MPV Neut % (Auto) Lymph % (Auto) [place] % (Auto) Eos % (Auto) Baso % (Auto) Neut # (Auto) Lymph # (Auto) [place] # (Auto) Eos # (Auto) Baso # (Auto) PT INR APTT pO2 VBG pH VBG pCO2 VBG HCO3 VBG Total CO2 VBG O2 Sat (Calc) VBG Base Excess VBG Potassium Sodium 140 Chloride 113 H Glucose Lactate Potassium 3.6 Carbon Dioxide 19 L Anion Gap 11 BUN 19 Creatinine 0.4 L Est GFR ( Amer) > 60 Est GFR (Non-Af Amer) > 60 Random Glucose 81 Calcium 5.7 L* D Phosphorus 2.6 Magnesium 1.6 Total Bilirubin 0.2 AST 29 ALT 8 L D Alkaline Phosphatase 38 D Total Protein 5.0 L Albumin 1.7 L D Globulin 3.3 Albumin/Globulin Ratio 0.5 L Venous Blood Potassium Urine Color Yellow Urine Clarity Hazy Urine pH 8.0 Ur Specific [place] 1.016 Urine Protein Negative Urine Glucose (UA) Normal Urine Ketones Negative Urine Blood Negative Urine Nitrate Negative Urine Bilirubin Negative Urine Urobilinogen Normal Ur Leukocyte Esterase Neg Urine WBC (Auto) 5 Urine RBC (Auto) 5 H Ur Squamous Epith Cells < 1 Urine Bacteria Rare Assessment & Plan - Assessment and Plan (Free Text) Assessment: 77 year old male with PMHx of Arthritis, Asthma, COPD, Severe Dementia, HTN, Pneumonia, Seizures, TIA, and Right AKA presents from [facility] due to fever of an unknown duration. Code Sepsis called in ED. Patient admitted to ICU for evaluation and treatment of SEPSIS. Patient began desating requiring emergent intubation. Plan: Neuro: GCS: 10T Sedation: Etomidate for Intubation then further sedated with 2mg Ativan. A: Severe Dementia, Hx of Seizure Cardio: A: HTN, Hx of TIA Central Line placed in Right IJ. Stat lasix given in the ED. Cont. Lasix Dialy Pulm: CXR (Admission): Stable postsurgical changes in the right lung with low lung volume and shift of mediastinal to the right. No acute findings. A: Hypoxic Res. Failure, Asthma, COPD Intubated Emergently: ON PRVC: 100%Fi02, 14 RR, 450 TV, 5 PEEP ABG (Adm): 7.4/31/326/21.6 DuoNebs Schedule GI: No Acute Issues Renal: A: Hypocalcemia Received Calcium Gluconate in ED. Heme/Onc: A: Normocytic Anemia ID A: Code Sepsis Febrile, Elevated Lactate Blood Cultures Urine Cultures MRSA 2gm Cefepime given in ED Started Zosyn and Vanc. Proph Protonix SCD's Patient discussed with ICU Attending Niraj Negrete, PGY-1 <Giovanni Washington S - Last Filed: 08/24/17 17:53> Meds - Medications Medications: Current Medications Acetaminophen (Tylenol 325 Mg Supp) 975 mg MT ONCE PRN PRN Reason: Fever >100.4 F Carbamazepine (Tegretol) 100 mg PEG Q8 AMY Enoxaparin Sodium (Lovenox) 40 mg SC DAILY AMY Famotidine (Pepcid) 20 mg IVP Q12 AMY Sodium Chloride (Sodium Chloride 0.9%) 1,000 mls @ 100 mls/hr IV .Q10H AMY Piperacillin Sod/Tazobactam Sod (Zosyn 3.375 Gm Iv Premix) 3.375 gm in 50 mls @ 100 mls/hr IVPB Q8H AMY PRN Reason: Protocol Vancomycin/Sodium Chloride (Vancomycin 1 Gm/Ns 200 Ml) 1 gm in 200 mls @ 133 mls/hr IVPB Q12H AMY PRN Reason: Protocol Stop: 08/29/17 19:31 Lorazepam (Ativan) 2 mg IVP Q3H PRN PRN Reason: Agitation Rosuvastatin Calcium (Crestor) 5 mg PO HS AMY Valproate Sodium (Depakene Oral Soln) 250 mg PEG QID AMY Results - Vital Signs Recent Vital Signs: Last Vital Signs Temp 99.3 F 08/24/17 14:46 Pulse 116 H 08/24/17 14:46 Resp 25 H 08/24/17 14:46 BP 131/73 08/24/17 14:46 Pulse Ox 97 08/24/17 14:46 - Labs Result Diagrams: 08/24/17 12:43 08/24/17 13:41 Labs: Laboratory Results - last 24 hr 08/24/17 08/24/17 08/24/17 12:43 12:43 12:43 WBC 8.5 D RBC 3.96 L Hgb 11.2 L D Hct 33.2 L MCV 83.9 MCH 28.2 MCHC 33.6 RDW 16.1 H Plt Count 300 MPV 8.8 Neut % (Auto) 76.0 H Lymph % (Auto) 14.0 L [place] % (Auto) 8.6 Eos % (Auto) 0.5 Baso % (Auto) 0.9 Neut # (Auto) 6.4 Lymph # (Auto) 1.2 [place] # (Auto) 0.7 Eos # (Auto) 0.0 Baso # (Auto) 0.1 PT 14.2 H INR 1.3 APTT 30 Puncture Site pCO2 pO2 42 HCO3 ABG pH ABG Total CO2 ABG O2 Saturation ABG Base Excess [place] Test ABG Potassium VBG pH 7.44 H VBG pCO2 37 L VBG HCO3 25.3 VBG Total CO2 26.2 VBG O2 Sat (Calc) 81.7 H VBG Base Excess 1.1 VBG Potassium 3.9 A-a O2 Difference Respiratory Index Sodium 137.0 Chloride 104.0 Glucose 122 H Lactate 2.2 H Vent Mode Mechanical Rate FiO2 Tidal Volume PEEP Potassium Carbon Dioxide Anion Gap BUN Creatinine Est GFR ( Amer) Est GFR (Non-Af Amer) Random Glucose Calcium Phosphorus Magnesium Total Bilirubin AST ALT Alkaline Phosphatase Total Protein Albumin Globulin Albumin/Globulin Ratio Arterial Blood Potassium Venous Blood Potassium 3.9 Urine Color Urine Clarity Urine pH Ur Specific [place] Urine Protein Urine Glucose (UA) Urine Ketones Urine Blood Urine Nitrate Urine Bilirubin Urine Urobilinogen Ur Leukocyte Esterase Urine WBC (Auto) Urine RBC (Auto) Ur Squamous Epith Cells Urine Bacteria 08/24/17 08/24/17 08/24/17 12:43 13:41 16:45 WBC RBC Hgb Hct MCV MCH MCHC RDW Plt Count MPV Neut % (Auto) Lymph % (Auto) [place] % (Auto) Eos % (Auto) Baso % (Auto) Neut # (Auto) Lymph # (Auto) [place] # (Auto) Eos # (Auto) Baso # (Auto) PT INR APTT Puncture Site Rb pCO2 31 L pO2 326 H HCO3 21.5 ABG pH 7.40 ABG Total CO2 20.2 L ABG O2 Saturation 100.0 H ABG Base Excess -4.5 L [place]lin Test Na ABG Potassium 3.3 L VBG pH VBG pCO2 VBG HCO3 VBG Total CO2 VBG O2 Sat (Calc) VBG Base Excess VBG Potassium A-a O2 Difference 348.0 Respiratory Index 1.1 Sodium 140 137.0 Chloride 113 H 110.0 H Glucose 110 Lactate 3.5 H Vent Mode Prvc Mechanical Rate 14 FiO2 100.0 Tidal Volume 450 PEEP 5 Potassium 3.6 Carbon Dioxide 19 L Anion Gap 11 BUN 19 Creatinine 0.4 L Est GFR ( Amer) > 60 Est GFR (Non-Af Amer) > 60 Random Glucose 81 Calcium 5.7 L* D Phosphorus 2.6 Magnesium 1.6 Total Bilirubin 0.2 AST 29 ALT 8 L D Alkaline Phosphatase 38 D Total Protein 5.0 L Albumin 1.7 L D Globulin 3.3 Albumin/Globulin Ratio 0.5 L Arterial Blood Potassium 3.3 L Venous Blood Potassium Urine Color Yellow Urine Clarity Hazy Urine pH 8.0 Ur Specific [place] 1.016 Urine Protein Negative Urine Glucose (UA) Normal Urine Ketones Negative Urine Blood Negative Urine Nitrate Negative Urine Bilirubin Negative Urine Urobilinogen Normal Ur Leukocyte Esterase Neg Urine WBC (Auto) 5 Urine RBC (Auto) 5 H Ur Squamous Epith Cells < 1 Urine Bacteria Rare Attending/Attestation - Attestation I have personally seen and examined this patient.: Yes I have fully participated in the care of the patient.: Yes I have reviewed all pertinent clinical information: Yes Notes (Text): 08/24/17 17:52 patient seen and examined 77-year-old male transferred from half-way for fever and increasing lethargy Patient intubated in the ICU for respiratory distress Triple-lumen catheter inserted Blood culture and sensitivity/urine culture and sensitivity IV antibiotics Ventilatory support Fluid resuscitation
--- NOTE | 2017-08-24 15:38 | PCM.SEPTIC ---
Sepsis Progress Note - Reassessment Type Date of Evaluation: 08/24/17 Time of Evaluation: 17:18 Reassessment Type: Non-invasive reassessment - Non Invasive Reassessment Were the most recent vital sign reviewed: Yes Vital Sign (Latest): Temp Pulse Resp BP Pulse Ox 99.3 F 116 H 25 H 131/73 97 08/24/17 14:46 08/24/17 14:46 08/24/17 14:46 08/24/17 14:46 08/24/17 14:46 Cardiovascular: Yes: Tachycardia. No: Edema Respiratory: Yes: Crackles. No: Normal Breath Sounds Capillary Refill: Delayed Skin: Normal Color, Warm - Invasive Reassessment (complete 2 of 4) Was a Central Venous Pressure Measurement obtained within 6 Hours after the presentation of septic shock: No Was a central venous oxygen measurement obtained within 6 hours after the presentation of septic shock: No Was a bedside cardiovascular ultrasound performed within 6 hours after the presentation of septic shock: No Fluid Challenge performed: No
[2017-08-24] MEDS ORDERED: Etomidate 20 mg/10ml Inj IV STA (16:14)
[2017-08-24] MEDS ORDERED: Sodium Chloride 0.9% 1,000 ML IV ONE (16:36)
[2017-08-24 16:49] LABS: ARTERIAL BLOOD GAS HCO3 21.5 mmol/L (21-28); ARTERIAL BLOOD GAS PCO2 31 mm/Hg (35-45); ARTERIAL BLOOD GAS PO2 326 mm/Hg (80-100); ARTERIAL BLOOD GAS TCO2 20.2 mmol/L (22-28)
--- NOTE | 2017-08-24 17:30 | RAD ---
HISTORY: ET Tube placement, Central Line Placement COMPARISON: 08/24/2017. FINDINGS: The endotracheal tube terminates 2.5 cm proximal to the marii. The left IJV line terminates in the SVC. LUNGS: Again seen is low lung volume on the right and right pleural thickening. There is 6th of trachea and mediastinal to the right. The left lung is well inflated and clear. There is left basilar atelectasis. PLEURA: No significant pleural effusion identified, no pneumothorax apparent. CARDIOVASCULAR: Stable. OSSEOUS STRUCTURES: Stable postsurgical changes in the right mid posterior ribs. VISUALIZED UPPER ABDOMEN: Normal. OTHER FINDINGS: None. IMPRESSION: Endotracheal tube terminates 2.5 cm proximal to the marii. The left IJV line terminates in the SVC. No other significant interval change.
--- NOTE | 2017-08-24 17:54 | PCM.PROC ---
Procedures Attestation:: I certify that I have explained the specified Operation(s) or Procedure(s), risks, benefits and reasonable alternatives to the Patient and/or other person responsible. The opportunity was given to ask questions and all questions answered - Central Line Placement Left Internal Jugular Triple Lumen Catheter Aseptic technique was employed throughout the procedure: Hand Hygiene done prior to procedure, Full sterile barriers (mask, hair cover, sterile gown, sterile gloves), Chloraprep Antiseptic: 30 second prep for IJ or SC sites CVP Time Out Performed: Yes Pt. Placed on Pulse Ox Monitor: Yes Central Line Prep: Chlorhexidine-Alcohol Combination Local Anesthesia Used: Lidocaine 1% Amount of Anesthesia Used (mls): 3 Ultrasound Used for Placement: Yes Central Line Lumen Inserted: triple Central Line Length: 16 cm Post Procedure: Sutured in Place, Good Blood Return, All Ports Aspirated, Flushed, Capped, Sterile Dressing Applied Secured by: Suture Post procedure dressing: Chlorhexidine disc (Biopatch) Post Procedure X-Ray: Yes Patient Tolerated Procedure: No Complications
--- NOTE | 2017-08-24 17:55 | PCM.PROC ---
Procedures Attestation:: I certify that I have explained the specified Operation(s) or Procedure(s), risks, benefits and reasonable alternatives to the Patient and/or other person responsible. The opportunity was given to ask questions and all questions answered - Intubation Time Out Performed: Yes Sedative: Etomidate Mg Given: 20 Laryngoscope: Marco A ET Tube Size: 8.0 ET Tube Uncuffed: No ET Tube Secured at Depth: 22 ET Tube Secured Locarion: Lips ET Tube Placement Confirmation: Visualized Passing Through Cords, Breath Sounds Equal Bilaterally, No Breath Sounds Over Epigastrum, Confirmation w/Capnometry Patient Tolerated Procedure: Well Procedure Immediate Complications: None
[2017-08-24] MEDS ORDERED: Piperacill/Tazo 3.375gm in Dex 3.375 GM/50 ML BAG IVPB SCH (18:00)
[2017-08-24] MEDS ORDERED: carBAMazepine 100 mg/5 ml Oral Susp (450 ml) PEG SCH (18:00)
[2017-08-24] MEDS: Piperacillin/Tazobact 3.375 GM in Sodium Chloride 100 ML IVPB SCH (18:50)
[2017-08-24] MEDS: Sodium Chloride 0.9% 1,000 ML IV SCH (18:53)
[2017-08-24] MEDS: Enoxaparin 40 mg Syringe SC SCH (18:54)
[2017-08-24] MEDS: Vancomycin 1 gm/NS 200 ml 1 GM/200 ML BAG IVPB SCH (18:55)
[2017-08-24] MEDS: Valproic Acid 250 mg/5 ml UD Cup PEG SCH ×3 (19:37→21:16)
[2017-08-24] MEDS: carBAMazepine Chew Tab 100 MG Chew Tab PEG SCH (21:14)
--- NOTE | 2017-08-24 23:49 | CP.PCM.HP ---
Present on Admission - Present on Admission Any Indicators Present on Admission: No Past Patient History - Infectious Disease Hx of Infectious Diseases: None - Past Medical History & Family History Past Medical History?: Yes - Past Social History Smoking Status: Unknown If Ever Smoked - CARDIAC Hx Hypertension: Yes - PULMONARY Hx Asthma: Yes Hx Chronic Obstructive Pulmonary Disease (COPD): Yes Hx Pneumonia: Yes - NEUROLOGICAL Hx Dementia: Yes Hx Seizures: Yes Hx Transient Ischemic Attacks (TIA): Yes - HEENT Hx HEENT Problems: Yes Other/Comment: RT EYELID DROOP - RENAL Hx Chronic Kidney Disease: No - ENDOCRINE/METABOLIC Hx Endocrine Disorders: No - HEMATOLOGICAL/ONCOLOGICAL Hx Anemia: Yes - INTEGUMENTARY Hx Dermatological Problems: Yes Other/Comment: multiple wounds - MUSCULOSKELETAL/RHEUMATOLOGICAL Hx Arthritis: Yes (BACK; 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) - GASTROINTESTINAL Hx Gastrointestinal Disorders: No - GENITOURINARY/GYNECOLOGICAL Hx Genitourinary Disorders: Yes - PSYCHIATRIC Hx Substance Use: No - SURGICAL HISTORY Hx Surgeries: Yes Hx Amputation: Yes (right AKA) - ANESTHESIA Hx Anesthesia: Yes Hx Anesthesia Reactions: No Hx Malignant Hyperthermia: No Meds Allergies/Adverse Reactions: Allergies Allergy/AdvReac Type Severity Reaction Status Date / Time No Known Allergies Allergy Verified 07/25/17 01:13 Results - Vital Signs Recent Vital Signs: Last Vital Signs Temp 98.1 F 08/24/17 20:00 Pulse 114 H 08/24/17 23:00 Resp 26 H 08/24/17 23:00 BP 96/56 L 08/24/17 22:53 Pulse Ox 100 08/24/17 23:00 - Labs Result Diagrams: 09/13/17 06:11 09/13/17 06:12 Labs: Laboratory Results - last 24 hr 08/24/17 08/24/17 08/24/17 12:43 12:43 12:43 WBC 8.5 D RBC 3.96 L Hgb 11.2 L D Hct 33.2 L MCV 83.9 MCH 28.2 MCHC 33.6 RDW 16.1 H Plt Count 300 MPV 8.8 Neut % (Auto) 76.0 H Lymph % (Auto) 14.0 L [place] % (Auto) 8.6 Eos % (Auto) 0.5 Baso % (Auto) 0.9 Neut # (Auto) 6.4 Lymph # (Auto) 1.2 [place] # (Auto) 0.7 Eos # (Auto) 0.0 Baso # (Auto) 0.1 PT 14.2 H INR 1.3 APTT 30 Puncture Site pCO2 pO2 42 HCO3 ABG pH ABG Total CO2 ABG O2 Saturation ABG Base Excess Collin Test ABG Potassium VBG pH 7.44 H VBG pCO2 37 L VBG HCO3 25.3 VBG Total CO2 26.2 VBG O2 Sat (Calc) 81.7 H VBG Base Excess 1.1 VBG Potassium 3.9 A-a O2 Difference Respiratory Index Sodium 137.0 Chloride 104.0 Glucose 122 H Lactate 2.2 H Vent Mode Mechanical Rate FiO2 Tidal Volume PEEP Potassium Carbon Dioxide Anion Gap BUN Creatinine Est GFR ( Amer) Est GFR (Non-Af Amer) Random Glucose Calcium Phosphorus Magnesium Total Bilirubin AST ALT Alkaline Phosphatase Total Protein Albumin Globulin Albumin/Globulin Ratio Arterial Blood Potassium Venous Blood Potassium 3.9 Urine Color Urine Clarity Urine pH Ur Specific [place] Urine Protein Urine Glucose (UA) Urine Ketones Urine Blood Urine Nitrate Urine Bilirubin Urine Urobilinogen Ur Leukocyte Esterase Urine WBC (Auto) Urine RBC (Auto) Ur Squamous Epith Cells Urine Bacteria 08/24/17 08/24/17 08/24/17 12:43 13:41 16:45 WBC RBC Hgb Hct MCV MCH MCHC RDW Plt Count MPV Neut % (Auto) Lymph % (Auto) [place] % (Auto) Eos % (Auto) Baso % (Auto) Neut # (Auto) Lymph # (Auto) [place] # (Auto) Eos # (Auto) Baso # (Auto) PT INR APTT Puncture Site Rb pCO2 31 L pO2 326 H HCO3 21.5 ABG pH 7.40 ABG Total CO2 20.2 L ABG O2 Saturation 100.0 H ABG Base Excess -4.5 L Collin Test Na ABG Potassium 3.3 L VBG pH VBG pCO2 VBG HCO3 VBG Total CO2 VBG O2 Sat (Calc) VBG Base Excess VBG Potassium A-a O2 Difference 348.0 Respiratory Index 1.1 Sodium 140 137.0 Chloride 113 H 110.0 H Glucose 110 Lactate 3.5 H Vent Mode Prvc Mechanical Rate 14 FiO2 100.0 Tidal Volume 450 PEEP 5 Potassium 3.6 Carbon Dioxide 19 L Anion Gap 11 BUN 19 Creatinine 0.4 L Est GFR ( Amer) > 60 Est GFR (Non-Af Amer) > 60 Random Glucose 81 Calcium 5.7 L* D Phosphorus 2.6 Magnesium 1.6 Total Bilirubin 0.2 AST 29 ALT 8 L D Alkaline Phosphatase 38 D Total Protein 5.0 L Albumin 1.7 L D Globulin 3.3 Albumin/Globulin Ratio 0.5 L Arterial Blood Potassium 3.3 L Venous Blood Potassium Urine Color Yellow Urine Clarity Hazy Urine pH 8.0 Ur Specific [place] 1.016 Urine Protein Negative Urine Glucose (UA) Normal Urine Ketones Negative Urine Blood Negative Urine Nitrate Negative Urine Bilirubin Negative Urine Urobilinogen Normal Ur Leukocyte Esterase Neg Urine WBC (Auto) 5 Urine RBC (Auto) 5 H Ur Squamous Epith Cells < 1 Urine Bacteria Rare
[2017-08-25] MEDS: Piperacillin/Tazobact 3.375 GM in Sodium Chloride 100 ML IVPB SCH ×3 (01:50→17:52)
[2017-08-25] MEDS: Sodium Chloride 0.9% 1,000 ML IV SCH ×2 (04:26→17:55)
[2017-08-25 05:33] LABS: ARTERIAL BLOOD GAS HCO3 19.4 mmol/L (21-28); ARTERIAL BLOOD GAS PCO2 24 mm/Hg (35-45); ARTERIAL BLOOD GAS PH 7.42 (7.35-7.45); ARTERIAL BLOOD GAS PO2 82 mm/Hg (80-100); ARTERIAL BLOOD GAS TCO2 16.3 mmol/L (22-28)
[2017-08-25] MEDS: carBAMazepine Chew Tab 100 MG Chew Tab PEG SCH ×3 (06:10→21:38)
[2017-08-25] MEDS: Vancomycin 1 gm/NS 200 ml 1 GM/200 ML BAG IVPB SCH ×2 (06:31→18:35)
[2017-08-25 06:33] LABS: BASO # 0.1 K/uL (0.0-0.2); BASO % 0.8 % (0.0-2.0); EOS # 0.1 K/uL (0.0-0.7); EOS % 0.5 % (0.0-4.0); HEMOGLOBIN 9.4 g/dL (12.0-18.0); LYMPH # 2.1 K/uL (1.0-4.3); LYMPH % 14.6 % (20.0-40.0); MEAN CELL VOLUME 84.9 fL (80.0-94.0); MEAN CORPUSCULAR HEMOGLOBIN 27.7 pg (27.0-31.0); MEAN CORPUSCULAR HGB CONC 32.7 g/dL (33.0-37.0); MEAN PLATELET VOLUME 8.3 fL (7.2-11.7); MONO % 6.8 % (0.0-10.0); NEUT # 11.1 K/uL (1.8-7.0); NEUT % 77.3 % (50.0-75.0); NRBC % 0.1 % (0.0-2.0); RBC 3.4 Mil/uL (4.40-5.90); RED CELL DISTRIBUTION WIDTH 16.2 % (11.5-14.5); WHITE BLOOD COUNT 14.3 K/uL (4.8-10.8)
[2017-08-25 06:47] LABS: ALB/GLOB RATIO 0.6 (1.0-2.1); ALBUMIN 2.5 g/dL (3.5-5.0); ALT/SGPT < 6 U/L (21-72); AST/SGOT 32 U/L (17-59); BLOOD UREA NITROGEN 18 mg/dL (9-20); CALCIUM 7.2 mg/dl (8.6-10.4); GFR AFRICAN-AMERICAN > 60; GFR NON-AFRICAN AMERICAN > 60
[2017-08-25 06:48] LABS: INR 1.6; PROTHROMBIN TIME 17.7 SECONDS (9.7-12.2)
--- NOTE | 2017-08-25 08:32 | RAD ---
HISTORY: vent COMPARISON: 08/24/2017. FINDINGS: The endotracheal tube terminates 2.5 cm proximal to the marii. LUNGS: Again seen are postsurgical changes in the right apex and low lung volume on the right with shift of trachea and mediastinal to the right. The left lung is well inflated. No focal consolidation in the left lung. PLEURA: No significant pleural effusion identified, no pneumothorax apparent. CARDIOVASCULAR: Normal. OSSEOUS STRUCTURES: No significant abnormalities. VISUALIZED UPPER ABDOMEN: Normal. OTHER FINDINGS: None. IMPRESSION: Endotracheal tube terminates 2.5 cm proximal to the marii. Stable postsurgical changes in the right lung. No acute findings.
--- NOTE | 2017-08-25 08:45 | CON ---
DATE: CHIEF COMPLAINT: Fever. HISTORY OF PRESENT ILLNESS: This is a 77-year-old white male well known to me with a history of peripheral arterial disease, status post right above knee amputation, COPD, osteoarthritis, seizure disorder, organic brain syndrome who complaint with his medication. [facility]. The patient came in because of fever, chills, rigors, altered mental status, getting worse, weaker, tired, fatigue, and the patient was brought into the emergency room and hospitalized. There is fever, chills. There is no abdominal pain. No seizure like activity. There is no history of tingling, numbness, paresthesia. There is no history of polyuria, polydipsia, polyphagia. There is no history of hematuria or pyuria. PAST MEDICAL HISTORY: COPD, seizure disorder, osteoarthritis. SOCIAL HISTORY: Nonsmoker, non-[employer] user. CURRENT MEDICATIONS: In the computer. ALLERGIES: IN THE COMPUTER. PHYSICAL EXAMINATION: GENERAL: An elderly male who is weak, drowsy. VITAL SIGNS: Blood pressure 96/56, pulse 114, respiratory rate 26, temperature 100. SKIN: Dry. Poor turgor. HEENT: Atraumatic and normocephalic. Negative pallor. Negative jaundice. Extraocular movements are intact. NECK: Supple. No JVD. LUNGS: Bilaterally clear. No rales. No rhonchi. CVS: S1, S2 regular. ABDOMEN: Soft and nontender. Bowel sounds are positive. PEG site is clean with no discharge. RECTAL: No masses. No bleed. Enlarged prostate. EXTREMITIES: Right above-knee amputation. Left extremity is normal. 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 ASSESSMENT: 1. Fever, rule out sepsis, rule out tracheobronchitis versus pneumonia, unlikely to be urinary tract infection. 2. Seizure disorder. 3. Osteoarthritis. PLAN: Admit. Detailed orders written. Seen and examined. Lele Ann MD
[2017-08-25] MEDS ORDERED: Dextrose 50% SYRINGE Inj (50 ml) IV STA (09:37)
[2017-08-25] MEDS: Valproic Acid 250 mg/5 ml UD Cup PEG SCH ×4 (10:17→21:38)
[2017-08-25] MEDS: Enoxaparin 40 mg Syringe SC SCH (10:19)
--- NOTE | 2017-08-25 11:43 | CP.CCUPN ---
<JfNiraj ortiz - Last Filed: 08/25/17 11:41> CCU Subjective - Physician Review Subjective (Free Text): Patient seen and examined at bedside. Currently on Mechanical Ventilation. CCU Objective - Vital Signs / Intake & Output Vital Signs (Last 4 hours): Vital Signs Temp Pulse Resp BP Pulse Ox 08/25/17 11:00 107 H 29 H 96 08/25/17 10:53 108 H 22 85/47 L 94 L 08/25/17 10:00 113 H 28 H 98 08/25/17 09:53 113 H 27 H 103/55 L 99 08/25/17 09:00 112 H 28 H 98 08/25/17 08:53 111 H 26 H 83/44 L 98 08/25/17 08:00 99.5 F 114 H 18 97 08/25/17 07:53 116 H 21 104/64 98 Intake and Output (Last 8hrs): Intake & Output 08/24/17 08/25/17 08/25/17 22:59 06:59 14:59 Intake Total 1700 1000 350 Output Total 1180 430 200 Balance 520 570 150 Weight 125 lb Intake: Intake, IV Amount 1700 1000 350 Left Distal Port Internal 1700 1000 350 Jugular Oral 0 Output: Urine 1180 430 200 Urethral (Brown) 1180 430 200 Other: Voiding Method Indwelling Catheter # Bowel Movements 1 - Physical Exam Other physical findings (Free Text): - Constitutional Appears: Older Than Stated Age, Cachectic, Chronically Ill - Head Exam Head Exam: ATRAUMATIC, NORMAL INSPECTION, NORMOCEPHALIC - Eye Exam Pupil Exam: PERRL - ENT Exam ENT Exam: Mucous Membranes Dry - Neck Exam Neck exam: Positive for: Normal Inspection - Respiratory Exam Respiratory Exam: Rales (B/L ). absent: Clear to Auscultation Bilateral Additional comments: Intubated - Cardiovascular Exam Cardiovascular Exam: Tachycardia, REGULAR RHYTHM, +S1, +S2. absent: RRR - GI/Abdominal Exam GI & Abdominal Exam: Soft. 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 Healing Ulcer in Left Knee - Neurological Exam Neurological exam: Altered - Medications Active Medications: Active Medications Generic Name Dose Route Start Last Admin Trade Name Freq PRN Reason Stop Dose Admin Acetaminophen 975 mg 05/22/18 12:33 Tylenol 325 Mg Supp RI ONCE PRN Fever >100.4 F Carbamazepine 100 mg 08/24/17 22:00 08/25/17 06:10 Tegretol PEG 100 mg Q8 AMY Administration Enoxaparin Sodium 40 mg 08/24/17 18:00 08/25/17 10:19 Lovenox SC 40 mg DAILY AMY Administration Famotidine 20 mg 08/24/17 22:00 08/25/17 11:06 Pepcid IVP 20 mg Q12 AMY Administration Sodium Chloride 1,000 mls @ 100 mls/hr 08/24/17 17:45 08/25/17 04:26 Sodium Chloride 0.9% IV 100 mls/hr .Q10H AMY Administration Vancomycin/Sodium Chloride 1 gm in 200 mls @ 133 mls/hr 08/24/17 19:30 06:31 Vancomycin 1 Gm/Ns 200 Ml IVPB 08/29/17 19:31 133 mls/hr Q12H AMY Administration Protocol Piperacillin Sod/Tazobactam 100 mls @ 100 mls/hr 08/24/17 18:00 08/25/17 10: 47 Sod 3.375 gm/ Sodium Chloride IVPB 100 mls/hr Q8H AMY Administration Protocol Lorazepam 2 mg 08/24/17 17:49 Ativan IVP Q3H PRN Agitation Rosuvastatin Calcium 5 mg 08/24/17 22:00 08/24/17 21:14 Crestor PO 5 mg HS AMY Administration Valproate Sodium 250 mg 08/24/17 18:00 08/25/17 10:17 Depakene Oral Soln PEG 250 mg QID AMY Administration - Patient Studies Lab Studies: Microbiology Studies 08/24/17 12:43 Urine Culture - Final Urine No Growth (<1,000 CFU/ML) Lab Studies 08/25/17 08/25/17 08/25/17 Range/Units 06:28 06:28 06:28 WBC 14.3 H D (4.8-10.8) K/uL RBC 3.40 L (4.40-5.90) Mil/uL Hgb 9.4 L (12.0-18.0) g/dL Hct 28.9 L (35.0-51.0) % MCV 84.9 (80.0-94.0) fL MCH 27.7 (27.0-31.0) pg MCHC 32.7 L (33.0-37.0) g/dL RDW 16.2 H (11.5-14.5) % Plt Count 301 (130-400) K/uL MPV 8.3 (7.2-11.7) fL Neut % (Auto) 77.3 H (50.0-75.0) % Lymph % (Auto) 14.6 L (20.0-40.0) % [place] % (Auto) 6.8 (0.0-10.0) % Eos % (Auto) 0.5 (0.0-4.0) % Baso % (Auto) 0.8 (0.0-2.0) % Neut # (Auto) 11.1 H (1.8-7.0) K/uL Lymph # (Auto) 2.1 (1.0-4.3) K/uL [place] # (Auto) 1.0 H (0.0-0.8) K/uL Eos # (Auto) 0.1 (0.0-0.7) K/uL Baso # (Auto) 0.1 (0.0-0.2) K/uL PT 17.7 H (9.7-12.2) SECONDS INR 1.6 APTT 36 H D (21-34) SECONDS Puncture Site pCO2 (35-45) mm/Hg pO2 (30-55) mm/Hg HCO3 (21-28) mmol/L ABG pH (7.35-7.45) ABG Total CO2 (22-28) mmol/L ABG O2 Saturation (95-98) % ABG Base Excess (-2.0-3.0) mmol/L [place]lin Test ABG Potassium (3.6-5.2) mmol/L VBG pH (7.32-7.43) VBG pCO2 (40-60) mmHg VBG HCO3 mmol/L VBG Total CO2 (22-28) mmol/L VBG O2 Sat (Calc) (40-65) % VBG Base Excess (0.0-2.0) mmol/L VBG Potassium (3.6-5.2) mmol/L A-a O2 Difference mm/Hg Respiratory Index Sodium 138 (132-148) mmol/l Chloride 109 H (98-107) mmol/L Glucose (75-110) mg/dl Lactate (0.7-2.1) mmol/L Vent Mode Mechanical Rate FiO2 % Tidal Volume PEEP Potassium 4.1 (3.6-5.2) mmol/L Carbon Dioxide 20 L (22-30) mmol/L Anion Gap 14 (10-20) BUN 18 (9-20) mg/dL Creatinine 0.8 (0.8-1.5) mg/dL Est GFR ( Amer) > 60 Est GFR (Non-Af Amer) > 60 Random Glucose 58 L (75-110) mg/dL Calcium 7.2 L (8.6-10.4) mg/dl Phosphorus (2.5-4.5) mg/dL Magnesium (1.6-2.3) mg/dL Total Bilirubin 0.9 (0.2-1.3) mg/dL AST 32 (17-59) U/L ALT < 6 L D (21-72) U/L Alkaline Phosphatase 59 (38-126) U/L Total Protein 6.6 (6.3-8.3) g/dL Albumin 2.5 L D (3.5-5.0) g/dL Globulin 4.1 H (2.2-3.9) gm/dL Albumin/Globulin Ratio 0.6 L (1.0-2.1) Arterial Blood Potassium (3.6-5.2) mmol/L Venous Blood Potassium (3.6-5.2) mmol/L Urine Color (YELLOW) Urine Clarity (Clear) Urine pH (5.0-8.0) Ur Specific [place] (1.003-1.030) Urine Protein (NEGATIVE) mg/dL Urine Glucose (UA) (Normal) mg/dL Urine Ketones (NEGATIVE) mg/dL Urine Blood (NEGATIVE) Urine Nitrate (NEGATIVE) Urine Bilirubin (NEGATIVE) Urine Urobilinogen (0.2-1.0) mg/dL Ur Leukocyte Esterase (Negative) Hui/uL Urine WBC (Auto) (0-5) /hpf Urine RBC (Auto) (0-3) /hpf Ur Squamous Epith Cells (0-5) /hpf Urine Bacteria (<OCC) 05/23/18 05/22/18 05/22/18 Range/Units 05:21 16:45 13:41 WBC (4.8-10.8) K/uL RBC (4.40-5.90) Mil/uL Hgb (12.0-18.0) g/dL Hct (35.0-51.0) % MCV (80.0-94.0) fL MCH (27.0-31.0) pg MCHC (33.0-37.0) g/dL RDW (11.5-14.5) % Plt Count (130-400) K/uL MPV (7.2-11.7) fL Neut % (Auto) (50.0-75.0) % Lymph % (Auto) (20.0-40.0) % [place] % (Auto) (0.0-10.0) % Eos % (Auto) (0.0-4.0) % Baso % (Auto) (0.0-2.0) % Neut # (Auto) (1.8-7.0) K/uL Lymph # (Auto) (1.0-4.3) K/uL [place] # (Auto) (0.0-0.8) K/uL Eos # (Auto) (0.0-0.7) K/uL Baso # (Auto) (0.0-0.2) K/uL PT (9.7-12.2) SECONDS INR APTT (21-34) SECONDS Puncture Site Rb Rb pCO2 24 L 31 L (35-45) mm/Hg pO2 82 326 H (30-55) mm/Hg HCO3 19.4 L 21.5 (21-28) mmol/L ABG pH 7.42 7.40 (7.35-7.45) ABG Total CO2 16.3 L 20.2 L (22-28) mmol/L ABG O2 Saturation 98.0 100.0 H (95-98) % ABG Base Excess -7.0 L -4.5 L (-2.0-3.0) mmol/L [place]lin Test Na Na ABG Potassium 3.6 3.3 L (3.6-5.2) mmol/L VBG pH (7.32-7.43) VBG pCO2 (40-60) mmHg VBG HCO3 mmol/L VBG Total CO2 (22-28) mmol/L VBG O2 Sat (Calc) (40-65) % VBG Base Excess (0.0-2.0) mmol/L VBG Potassium (3.6-5.2) mmol/L A-a O2 Difference 316.0 348.0 mm/Hg Respiratory Index 3.9 1.1 Sodium 140.0 137.0 140 (132-148) mmol/l Chloride 112.0 H 110.0 H 113 H (98-107) mmol/L Glucose 60 L 110 (75-110) mg/dl Lactate 3.5 H 3.5 H (0.7-2.1) mmol/L Vent Mode Prvc Prvc Mechanical Rate 14 14 FiO2 60.0 100.0 % Tidal Volume 450 450 PEEP 5 5 Potassium 3.6 (3.6-5.2) mmol/L Carbon Dioxide 19 L (22-30) mmol/L Anion Gap 11 (10-20) BUN 19 (9-20) mg/dL Creatinine 0.4 L (0.8-1.5) mg/dL Est GFR ( Amer) > 60 Est GFR (Non-Af Amer) > 60 Random Glucose 81 (75-110) mg/dL Calcium 5.7 L* D (8.6-10.4) mg/dl Phosphorus 2.6 (2.5-4.5) mg/dL Magnesium 1.6 (1.6-2.3) mg/dL Total Bilirubin 0.2 (0.2-1.3) mg/dL AST 29 (17-59) U/L ALT 8 L D (21-72) U/L Alkaline Phosphatase 38 D (38-126) U/L Total Protein 5.0 L (6.3-8.3) g/dL Albumin 1.7 L D (3.5-5.0) g/dL Globulin 3.3 (2.2-3.9) gm/dL Albumin/Globulin Ratio 0.5 L (1.0-2.1) Arterial Blood Potassium 3.6 3.3 L (3.6-5.2) mmol/L Venous Blood Potassium (3.6-5.2) mmol/L Urine Color (YELLOW) Urine Clarity (Clear) Urine pH (5.0-8.0) Ur Specific [place] (1.003-1.030) Urine Protein (NEGATIVE) mg/dL Urine Glucose (UA) (Normal) mg/dL Urine Ketones (NEGATIVE) mg/dL Urine Blood (NEGATIVE) Urine Nitrate (NEGATIVE) Urine Bilirubin (NEGATIVE) Urine Urobilinogen (0.2-1.0) mg/dL Ur Leukocyte Esterase (Negative) Hui/uL Urine WBC (Auto) (0-5) /hpf Urine RBC (Auto) (0-3) /hpf Ur Squamous Epith Cells (0-5) /hpf Urine Bacteria (<OCC) 08/24/17 08/24/17 08/24/17 Range/Units 12:43 12:43 12:43 WBC 8.5 D (4.8-10.8) K/uL RBC 3.96 L (4.40-5.90) Mil/uL Hgb 11.2 L D (12.0-18.0) g/dL Hct 33.2 L (35.0-51.0) % MCV 83.9 (80.0-94.0) fL MCH 28.2 (27.0-31.0) pg MCHC 33.6 (33.0-37.0) g/dL RDW 16.1 H (11.5-14.5) % Plt Count 300 (130-400) K/uL MPV 8.8 (7.2-11.7) fL Neut % (Auto) 76.0 H (50.0-75.0) % Lymph % (Auto) 14.0 L (20.0-40.0) % [place] % (Auto) 8.6 (0.0-10.0) % Eos % (Auto) 0.5 (0.0-4.0) % Baso % (Auto) 0.9 (0.0-2.0) % Neut # (Auto) 6.4 (1.8-7.0) K/uL Lymph # (Auto) 1.2 (1.0-4.3) K/uL [place] # (Auto) 0.7 (0.0-0.8) K/uL Eos # (Auto) 0.0 (0.0-0.7) K/uL Baso # (Auto) 0.1 (0.0-0.2) K/uL PT 14.2 H (9.7-12.2) SECONDS INR 1.3 APTT 30 (21-34) SECONDS Puncture Site pCO2 (35-45) mm/Hg pO2 (30-55) mm/Hg HCO3 (21-28) mmol/L ABG pH (7.35-7.45) ABG Total CO2 (22-28) mmol/L ABG O2 Saturation (95-98) % ABG Base Excess (-2.0-3.0) mmol/L [place]lin Test ABG Potassium (3.6-5.2) mmol/L VBG pH (7.32-7.43) VBG pCO2 (40-60) mmHg VBG HCO3 mmol/L VBG Total CO2 (22-28) mmol/L VBG O2 Sat (Calc) (40-65) % VBG Base Excess (0.0-2.0) mmol/L VBG Potassium (3.6-5.2) mmol/L A-a O2 Difference mm/Hg Respiratory Index Sodium (132-148) mmol/l Chloride (98-107) mmol/L Glucose (75-110) mg/dl Lactate (0.7-2.1) mmol/L Vent Mode Mechanical Rate FiO2 % Tidal Volume PEEP Potassium (3.6-5.2) mmol/L Carbon Dioxide (22-30) mmol/L Anion Gap (10-20) BUN (9-20) mg/dL Creatinine (0.8-1.5) mg/dL Est GFR ( Amer) Est GFR (Non-Af Amer) Random Glucose (75-110) mg/dL Calcium (8.6-10.4) mg/dl Phosphorus (2.5-4.5) mg/dL Magnesium (1.6-2.3) mg/dL Total Bilirubin (0.2-1.3) mg/dL AST (17-59) U/L ALT (21-72) U/L Alkaline Phosphatase (38-126) U/L Total Protein (6.3-8.3) g/dL Albumin (3.5-5.0) g/dL Globulin (2.2-3.9) gm/dL Albumin/Globulin Ratio (1.0-2.1) Arterial Blood Potassium (3.6-5.2) mmol/L Venous Blood Potassium (3.6-5.2) mmol/L Urine Color Yellow (YELLOW) Urine Clarity Hazy (Clear) Urine pH 8.0 (5.0-8.0) Ur Specific [place] 1.016 (1.003-1.030) Urine Protein Negative (NEGATIVE) mg/dL Urine Glucose (UA) Normal (Normal) mg/dL Urine Ketones Negative (NEGATIVE) mg/dL Urine Blood Negative (NEGATIVE) Urine Nitrate Negative (NEGATIVE) Urine Bilirubin Negative (NEGATIVE) Urine Urobilinogen Normal (0.2-1.0) mg/dL Ur Leukocyte Esterase Neg (Negative) Hui/uL Urine WBC (Auto) 5 (0-5) /hpf Urine RBC (Auto) 5 H (0-3) /hpf Ur Squamous Epith Cells < 1 (0-5) /hpf Urine Bacteria Rare (<OCC) 08/24/17 Range/Units 12:43 WBC (4.8-10.8) K/uL RBC (4.40-5.90) Mil/uL Hgb (12.0-18.0) g/dL Hct (35.0-51.0) % MCV (80.0-94.0) fL MCH (27.0-31.0) pg MCHC (33.0-37.0) g/dL RDW (11.5-14.5) % Plt Count (130-400) K/uL MPV (7.2-11.7) fL Neut % (Auto) (50.0-75.0) % Lymph % (Auto) (20.0-40.0) % [place] % (Auto) (0.0-10.0) % Eos % (Auto) (0.0-4.0) % Baso % (Auto) (0.0-2.0) % Neut # (Auto) (1.8-7.0) K/uL Lymph # (Auto) (1.0-4.3) K/uL [place] # (Auto) (0.0-0.8) K/uL Eos # (Auto) (0.0-0.7) K/uL Baso # (Auto) (0.0-0.2) K/uL PT (9.7-12.2) SECONDS INR APTT (21-34) SECONDS Puncture Site pCO2 (35-45) mm/Hg pO2 42 (30-55) mm/Hg HCO3 (21-28) mmol/L ABG pH (7.35-7.45) ABG Total CO2 (22-28) mmol/L ABG O2 Saturation (95-98) % ABG Base Excess (-2.0-3.0) mmol/L [place]lin Test ABG Potassium (3.6-5.2) mmol/L VBG pH 7.44 H (7.32-7.43) VBG pCO2 37 L (40-60) mmHg VBG HCO3 25.3 mmol/L VBG Total CO2 26.2 (22-28) mmol/L VBG O2 Sat (Calc) 81.7 H (40-65) % VBG Base Excess 1.1 (0.0-2.0) mmol/L VBG Potassium 3.9 (3.6-5.2) mmol/L A-a O2 Difference mm/Hg Respiratory Index Sodium 137.0 (132-148) mmol/l Chloride 104.0 (98-107) mmol/L Glucose 122 H (75-110) mg/dl Lactate 2.2 H (0.7-2.1) mmol/L Vent Mode Mechanical Rate FiO2 % Tidal Volume PEEP Potassium (3.6-5.2) mmol/L Carbon Dioxide (22-30) mmol/L Anion Gap (10-20) BUN (9-20) mg/dL Creatinine (0.8-1.5) mg/dL Est GFR ( Amer) Est GFR (Non-Af Amer) Random Glucose (75-110) mg/dL Calcium (8.6-10.4) mg/dl Phosphorus (2.5-4.5) mg/dL Magnesium (1.6-2.3) mg/dL Total Bilirubin (0.2-1.3) mg/dL AST (17-59) U/L ALT (21-72) U/L Alkaline Phosphatase (38-126) U/L Total Protein (6.3-8.3) g/dL Albumin (3.5-5.0) g/dL Globulin (2.2-3.9) gm/dL Albumin/Globulin Ratio (1.0-2.1) Arterial Blood Potassium (3.6-5.2) mmol/L Venous Blood Potassium 3.9 (3.6-5.2) mmol/L Urine Color (YELLOW) Urine Clarity (Clear) Urine pH (5.0-8.0) Ur Specific [place] (1.003-1.030) Urine Protein (NEGATIVE) mg/dL Urine Glucose (UA) (Normal) mg/dL Urine Ketones (NEGATIVE) mg/dL Urine Blood (NEGATIVE) Urine Nitrate (NEGATIVE) Urine Bilirubin (NEGATIVE) Urine Urobilinogen (0.2-1.0) mg/dL Ur Leukocyte Esterase (Negative) Hui/uL Urine WBC (Auto) (0-5) /hpf Urine RBC (Auto) (0-3) /hpf Ur Squamous Epith Cells (0-5) /hpf Urine Bacteria (<OCC) Laboratory Results - last 24 hr 08/24/17 08/24/17 08/24/17 12:43 12:43 12:43 WBC 8.5 D RBC 3.96 L Hgb 11.2 L D Hct 33.2 L MCV 83.9 MCH 28.2 MCHC 33.6 RDW 16.1 H Plt Count 300 MPV 8.8 Neut % (Auto) 76.0 H Lymph % (Auto) 14.0 L [place] % (Auto) 8.6 Eos % (Auto) 0.5 Baso % (Auto) 0.9 Neut # (Auto) 6.4 Lymph # (Auto) 1.2 [place] # (Auto) 0.7 Eos # (Auto) 0.0 Baso # (Auto) 0.1 PT 14.2 H INR 1.3 APTT 30 Puncture Site pCO2 pO2 42 HCO3 ABG pH ABG Total CO2 ABG O2 Saturation ABG Base Excess Collin Test ABG Potassium VBG pH 7.44 H VBG pCO2 37 L VBG HCO3 25.3 VBG Total CO2 26.2 VBG O2 Sat (Calc) 81.7 H VBG Base Excess 1.1 VBG Potassium 3.9 A-a O2 Difference Respiratory Index Sodium 137.0 Chloride 104.0 Glucose 122 H Lactate 2.2 H Vent Mode Mechanical Rate FiO2 Tidal Volume PEEP Potassium Carbon Dioxide Anion Gap BUN Creatinine Est GFR ( Amer) Est GFR (Non-Af Amer) Random Glucose Calcium Phosphorus Magnesium Total Bilirubin AST ALT Alkaline Phosphatase Total Protein Albumin Globulin Albumin/Globulin Ratio Arterial Blood Potassium Venous Blood Potassium 3.9 Urine Color Urine Clarity Urine pH Ur Specific [place] Urine Protein Urine Glucose (UA) Urine Ketones Urine Blood Urine Nitrate Urine Bilirubin Urine Urobilinogen Ur Leukocyte Esterase Urine WBC (Auto) Urine RBC (Auto) Ur Squamous Epith Cells Urine Bacteria 08/24/17 08/24/17 08/24/17 12:43 13:41 16:45 WBC RBC Hgb Hct MCV MCH MCHC RDW Plt Count MPV Neut % (Auto) Lymph % (Auto) [place] % (Auto) Eos % (Auto) Baso % (Auto) Neut # (Auto) Lymph # (Auto) [place] # (Auto) Eos # (Auto) Baso # (Auto) PT INR APTT Puncture Site Rb pCO2 31 L pO2 326 H HCO3 21.5 ABG pH 7.40 ABG Total CO2 20.2 L ABG O2 Saturation 100.0 H ABG Base Excess -4.5 L [place] Test Na ABG Potassium 3.3 L VBG pH VBG pCO2 VBG HCO3 VBG Total CO2 VBG O2 Sat (Calc) VBG Base Excess VBG Potassium A-a O2 Difference 348.0 Respiratory Index 1.1 Sodium 140 137.0 Chloride 113 H 110.0 H Glucose 110 Lactate 3.5 H Vent Mode Prvc Mechanical Rate 14 FiO2 100.0 Tidal Volume 450 PEEP 5 Potassium 3.6 Carbon Dioxide 19 L Anion Gap 11 BUN 19 Creatinine 0.4 L Est GFR ( Amer) > 60 Est GFR (Non-Af Amer) > 60 Random Glucose 81 Calcium 5.7 L* D Phosphorus 2.6 Magnesium 1.6 Total Bilirubin 0.2 AST 29 ALT 8 L D Alkaline Phosphatase 38 D Total Protein 5.0 L Albumin 1.7 L D Globulin 3.3 Albumin/Globulin Ratio 0.5 L Arterial Blood Potassium 3.3 L Venous Blood Potassium Urine Color Yellow Urine Clarity Hazy Urine pH 8.0 Ur Specific [place] 1.016 Urine Protein Negative Urine Glucose (UA) Normal Urine Ketones Negative Urine Blood Negative Urine Nitrate Negative Urine Bilirubin Negative Urine Urobilinogen Normal Ur Leukocyte Esterase Neg Urine WBC (Auto) 5 Urine RBC (Auto) 5 H Ur Squamous Epith Cells < 1 Urine Bacteria Rare 08/25/17 08/25/17 08/25/17 05:21 06:28 06:28 WBC 14.3 H D RBC 3.40 L Hgb 9.4 L Hct 28.9 L MCV 84.9 MCH 27.7 MCHC 32.7 L RDW 16.2 H Plt Count 301 MPV 8.3 Neut % (Auto) 77.3 H Lymph % (Auto) 14.6 L [place] % (Auto) 6.8 Eos % (Auto) 0.5 Baso % (Auto) 0.8 Neut # (Auto) 11.1 H Lymph # (Auto) 2.1 [place] # (Auto) 1.0 H Eos # (Auto) 0.1 Baso # (Auto) 0.1 PT 17.7 H INR 1.6 APTT 36 H D Puncture Site Rb pCO2 24 L pO2 82 HCO3 19.4 L ABG pH 7.42 ABG Total CO2 16.3 L ABG O2 Saturation 98.0 ABG Base Excess -7.0 L [place]lin Test Na ABG Potassium 3.6 VBG pH VBG pCO2 VBG HCO3 VBG Total CO2 VBG O2 Sat (Calc) VBG Base Excess VBG Potassium A-a O2 Difference 316.0 Respiratory Index 3.9 Sodium 140.0 Chloride 112.0 H Glucose 60 L Lactate 3.5 H Vent Mode Prvc Mechanical Rate 14 FiO2 60.0 Tidal Volume 450 PEEP 5 Potassium Carbon Dioxide Anion Gap BUN Creatinine Est GFR ( Amer) Est GFR (Non-Af Amer) Random Glucose Calcium Phosphorus Magnesium Total Bilirubin AST ALT Alkaline Phosphatase Total Protein Albumin Globulin Albumin/Globulin Ratio Arterial Blood Potassium 3.6 Venous Blood Potassium Urine Color Urine Clarity Urine pH Ur Specific [place] Urine Protein Urine Glucose (UA) Urine Ketones Urine Blood Urine Nitrate Urine Bilirubin Urine Urobilinogen Ur Leukocyte Esterase Urine WBC (Auto) Urine RBC (Auto) Ur Squamous Epith Cells Urine Bacteria 08/25/17 06:28 WBC RBC Hgb Hct MCV MCH MCHC RDW Plt Count MPV Neut % (Auto) Lymph % (Auto) [place] % (Auto) Eos % (Auto) Baso % (Auto) Neut # (Auto) Lymph # (Auto) [place] # (Auto) Eos # (Auto) Baso # (Auto) PT INR APTT Puncture Site pCO2 pO2 HCO3 ABG pH ABG Total CO2 ABG O2 Saturation ABG Base Excess [place] Test ABG Potassium VBG pH VBG pCO2 VBG HCO3 VBG Total CO2 VBG O2 Sat (Calc) VBG Base Excess VBG Potassium A-a O2 Difference Respiratory Index Sodium 138 Chloride 109 H Glucose Lactate Vent Mode Mechanical Rate FiO2 Tidal Volume PEEP Potassium 4.1 Carbon Dioxide 20 L Anion Gap 14 BUN 18 Creatinine 0.8 Est GFR ( Amer) > 60 Est GFR (Non-Af Amer) > 60 Random Glucose 58 L Calcium 7.2 L Phosphorus Magnesium Total Bilirubin 0.9 AST 32 ALT < 6 L D Alkaline Phosphatase 59 Total Protein 6.6 Albumin 2.5 L D Globulin 4.1 H Albumin/Globulin Ratio 0.6 L Arterial Blood Potassium Venous Blood Potassium Urine Color Urine Clarity Urine pH Ur Specific [place] Urine Protein Urine Glucose (UA) Urine Ketones Urine Blood Urine Nitrate Urine Bilirubin Urine Urobilinogen Ur Leukocyte Esterase Urine WBC (Auto) Urine RBC (Auto) Ur Squamous Epith Cells Urine Bacteria EKG/Cardiology Studies: Cardiology / EKG Studies 08/24/17 12:33 ELECTROCARDIOGRAM Stat Comment: Mode Of Transportation: Reason For Exam: Sepsis Patient 08/24/17 13:53 ELECTROCARDIOGRAM Stat Comment: Mode Of Transportation: Reason For Exam: Sepsis Patient Review of Systems - Review of Systems Systems not reviewed;Unavailable: Intubated Assessment/Plan - Assessment and Plan (Free Text) Assessment: 77 year old male with PMHx of Arthritis, Asthma, COPD, Severe Dementia, HTN, Pneumonia, Seizures, TIA, and Right AK[facility] of an unknown duration. Code Sepsis called in ED. Patient admitted to ICU for evaluation and treatment of SEPSIS. Patient began desating requiring emergent intubation. Plan: Neuro: GCS: 10T Sedation: Etomidate for Intubation then further sedated with 2mg Ativan. A: Severe Dementia, Hx of Seizure Home Carbamazepine 100mg Q8 Ativan PRN for agitation. Cardio: A: HTN, Hx of TIA Central Line placed in Right IJ. Stat lasix given in the ED. Cont. Lasix Daily Pulm: CXR (Admission): Stable postsurgical changes in the right lung with low lung volume and shift of mediastinal to the right. No acute findings. A: Hypoxic Res. Failure, Asthma, COPD Intubated Emergently: ON PRVC: 100%Fi02, 14 RR, 450 TV, 5 PEEP ABG (Adm): 7.4/31/326/21.6 DuoNebs Schedule Endo A: Hypoglycemia stat D50 Given today GI: No Acute Issues Renal: A: Hypocalcemia Received Calcium Gluconate in ED. Heme/Onc: A: Normocytic Anemia ID A: Code Sepsis Febrile, Elevated Lactate Blood Cultures - PENDING Urine Cultures - NEGATIVE Wound Cultures - PENDING MRSA 2gm Cefepime given in ED Cont. Zosyn and Vanc. Integumentary A: Left Lower ext wounds Wound Care. Proph Protonix Lovenox Fluids: NS @ 100 Diet: Tube Feeding - Jevity 1.5 Patient discussed with ICU Attending Niraj Negrete, PGY-1 <Giovanni Washington - Last Filed: 08/25/17 17:16> CCU Objective - Vital Signs / Intake & Output Vital Signs (Last 4 hours): Vital Signs Temp Pulse Resp BP Pulse Ox 08/25/17 16:00 99.2 F 110 H 27 H 99 08/25/17 15:53 110 H 24 104/56 L 99 08/25/17 15:00 108 H 17 99 08/25/17 14:53 110 H 14 103/51 L 98 08/25/17 14:18 109 H 30 H 90/54 L 98 08/25/17 14:17 109 H 26 H 105/55 L 08/25/17 14:16 109 H 28 H 92/50 L 96 08/25/17 14:15 109 H 27 H 102/52 L 97 08/25/17 14:14 109 H 28 H 102/53 L 97 08/25/17 14:00 109 H 31 H 97 08/25/17 13:53 107 H 23 98 Intake and Output (Last 8hrs): Intake & Output 08/25/17 08/25/17 08/25/17 06:59 14:59 22:59 Intake Total 1000 690 240 Output Total 430 320 50 Balance 570 370 190 Weight 125 lb Intake: Intake, IV Amount 1000 650 200 Left Distal Port Internal 1000 650 200 Jugular Tube Feeding 40 40 Output: Urine 430 320 50 Urethral (Brown) 430 320 50 - Medications Active Medications: Active Medications Generic Name Dose Route Start Last Admin Trade Name Freq PRN Reason Stop Dose Admin Acetaminophen 975 mg 08/25/17 17:15 Tylenol 325 Mg Supp RI 08/25/17 17:16 ONCE ONE Carbamazepine 100 mg 08/24/17 22:00 08/25/17 15:48 Tegretol PEG 100 mg Q8 AMY Administration Enoxaparin Sodium 40 mg 08/24/17 18:00 08/25/17 10:19 Lovenox SC 40 mg DAILY AMY Administration Famotidine 20 mg 08/24/17 22:00 08/25/17 11:06 Pepcid IVP 20 mg Q12 AMY Administration Sodium Chloride 1,000 mls @ 100 mls/hr 08/24/17 17:45 08/25/17 04:26 Sodium Chloride 0.9% IV 100 mls/hr .Q10H AMY Administration Vancomycin/Sodium Chloride 1 gm in 200 mls @ 133 mls/hr 08/24/17 19:30 06:31 Vancomycin 1 Gm/Ns 200 Ml IVPB 08/29/17 19:31 133 mls/hr Q12H AMY Administration Protocol Piperacillin Sod/Tazobactam 100 mls @ 100 mls/hr 08/24/17 18:00 08/25/17 10: 47 Sod 3.375 gm/ Sodium Chloride IVPB 100 mls/hr Q8H AMY Administration Protocol Lorazepam 2 mg 08/24/17 17:49 Ativan IVP Q3H PRN Agitation Rosuvastatin Calcium 5 mg 08/24/17 22:00 08/24/17 21:14 Crestor PO 5 mg HS AMY Administration Valproate Sodium 250 mg 08/24/17 18:00 08/25/17 15:47 Depakene Oral Soln PEG 250 mg QID AMY Administration - Patient Studies Lab Studies: Microbiology Studies 08/24/17 13:31 Blood Culture - Preliminary Blood NO GROWTH AFTER 24 HOURS 08/24/17 13:31 Blood Culture - Preliminary Blood NO GROWTH AFTER 24 HOURS 08/24/17 12:43 Urine Culture - Final Urine No Growth (<1,000 CFU/ML) Lab Studies 08/25/17 08/25/17 08/25/17 Range/Units 16:04 06:28 06:28 WBC (4.8-10.8) K/uL RBC (4.40-5.90) Mil/uL Hgb (12.0-18.0) g/dL Hct (35.0-51.0) % MCV (80.0-94.0) fL MCH (27.0-31.0) pg MCHC (33.0-37.0) g/dL RDW (11.5-14.5) % Plt Count (130-400) K/uL MPV (7.2-11.7) fL Neut % (Auto) (50.0-75.0) % Lymph % (Auto) (20.0-40.0) % [place] % (Auto) (0.0-10.0) % Eos % (Auto) (0.0-4.0) % Baso % (Auto) (0.0-2.0) % Neut # (Auto) (1.8-7.0) K/uL Lymph # (Auto) (1.0-4.3) K/uL [place] # (Auto) (0.0-0.8) K/uL Eos # (Auto) (0.0-0.7) K/uL Baso # (Auto) (0.0-0.2) K/uL PT 17.7 H (9.7-12.2) SECONDS INR 1.6 APTT 36 H D (21-34) SECONDS Puncture Site pCO2 (35-45) mm/Hg pO2 (80-100) mm/Hg HCO3 (21-28) mmol/L ABG pH (7.35-7.45) ABG Total CO2 (22-28) mmol/L ABG O2 Saturation (95-98) % ABG Base Excess (-2.0-3.0) mmol/L [place] Test ABG Potassium (3.6-5.2) mmol/L A-a O2 Difference mm/Hg Respiratory Index Sodium 138 (132-148) mmol/l Chloride 109 H (98-107) mmol/L Glucose (75-110) mg/dl Lactate (0.7-2.1) mmol/L Vent Mode Mechanical Rate FiO2 % Tidal Volume PEEP Potassium 4.1 (3.6-5.2) mmol/L Carbon Dioxide 20 L (22-30) mmol/L Anion Gap 14 (10-20) BUN 18 (9-20) mg/dL Creatinine 0.8 (0.8-1.5) mg/dL Est GFR ( Amer) > 60 Est GFR (Non-Af Amer) > 60 Random Glucose 58 L (75-110) mg/dL Calcium 7.2 L (8.6-10.4) mg/dl Total Bilirubin 0.9 (0.2-1.3) mg/dL AST 32 (17-59) U/L ALT < 6 L D (21-72) U/L Alkaline Phosphatase 59 (38-126) U/L Total Protein 6.6 (6.3-8.3) g/dL Albumin 2.5 L D (3.5-5.0) g/dL Globulin 4.1 H (2.2-3.9) gm/dL Albumin/Globulin Ratio 0.6 L (1.0-2.1) Procalcitonin 9.69 H (0.19-0.49) NG/ML Arterial Blood Potassium (3.6-5.2) mmol/L 08/25/17 08/25/17 Range/Units 06:28 05:21 WBC 14.3 H D (4.8-10.8) K/uL RBC 3.40 L (4.40-5.90) Mil/uL Hgb 9.4 L (12.0-18.0) g/dL Hct 28.9 L (35.0-51.0) % MCV 84.9 (80.0-94.0) fL MCH 27.7 (27.0-31.0) pg MCHC 32.7 L (33.0-37.0) g/dL RDW 16.2 H (11.5-14.5) % Plt Count 301 (130-400) K/uL MPV 8.3 (7.2-11.7) fL Neut % (Auto) 77.3 H (50.0-75.0) % Lymph % (Auto) 14.6 L (20.0-40.0) % [place] % (Auto) 6.8 (0.0-10.0) % Eos % (Auto) 0.5 (0.0-4.0) % Baso % (Auto) 0.8 (0.0-2.0) % Neut # (Auto) 11.1 H (1.8-7.0) K/uL Lymph # (Auto) 2.1 (1.0-4.3) K/uL [place] # (Auto) 1.0 H (0.0-0.8) K/uL Eos # (Auto) 0.1 (0.0-0.7) K/uL Baso # (Auto) 0.1 (0.0-0.2) K/uL PT (9.7-12.2) SECONDS INR APTT (21-34) SECONDS Puncture Site Rb pCO2 24 L (35-45) mm/Hg pO2 82 (80-100) mm/Hg HCO3 19.4 L (21-28) mmol/L ABG pH 7.42 (7.35-7.45) ABG Total CO2 16.3 L (22-28) mmol/L ABG O2 Saturation 98.0 (95-98) % ABG Base Excess -7.0 L (-2.0-3.0) mmol/L Collin Test Na ABG Potassium 3.6 (3.6-5.2) mmol/L A-a O2 Difference 316.0 mm/Hg Respiratory Index 3.9 Sodium 140.0 (132-148) mmol/l Chloride 112.0 H (98-107) mmol/L Glucose 60 L (75-110) mg/dl Lactate 3.5 H (0.7-2.1) mmol/L Vent Mode Prvc Mechanical Rate 14 FiO2 60.0 % Tidal Volume 450 PEEP 5 Potassium (3.6-5.2) mmol/L Carbon Dioxide (22-30) mmol/L Anion Gap (10-20) BUN (9-20) mg/dL Creatinine (0.8-1.5) mg/dL Est GFR ( Amer) Est GFR (Non-Af Amer) Random Glucose (75-110) mg/dL Calcium (8.6-10.4) mg/dl Total Bilirubin (0.2-1.3) mg/dL AST (17-59) U/L ALT (21-72) U/L Alkaline Phosphatase (38-126) U/L Total Protein (6.3-8.3) g/dL Albumin (3.5-5.0) g/dL Globulin (2.2-3.9) gm/dL Albumin/Globulin Ratio (1.0-2.1) Procalcitonin (0.19-0.49) NG/ML Arterial Blood Potassium 3.6 (3.6-5.2) mmol/L Laboratory Results - last 24 hr 08/25/17 08/25/17 08/25/17 05:21 06:28 06:28 WBC 14.3 H D RBC 3.40 L Hgb 9.4 L Hct 28.9 L MCV 84.9 MCH 27.7 MCHC 32.7 L RDW 16.2 H Plt Count 301 MPV 8.3 Neut % (Auto) 77.3 H Lymph % (Auto) 14.6 L [place] % (Auto) 6.8 Eos % (Auto) 0.5 Baso % (Auto) 0.8 Neut # (Auto) 11.1 H Lymph # (Auto) 2.1 [place] # (Auto) 1.0 H Eos # (Auto) 0.1 Baso # (Auto) 0.1 PT 17.7 H INR 1.6 APTT 36 H D Puncture Site Rb pCO2 24 L pO2 82 HCO3 19.4 L ABG pH 7.42 ABG Total CO2 16.3 L ABG O2 Saturation 98.0 ABG Base Excess -7.0 L Collin Test Na ABG Potassium 3.6 A-a O2 Difference 316.0 Respiratory Index 3.9 Sodium 140.0 Chloride 112.0 H Glucose 60 L Lactate 3.5 H Vent Mode Prvc Mechanical Rate 14 FiO2 60.0 Tidal Volume 450 PEEP 5 Potassium Carbon Dioxide Anion Gap BUN Creatinine Est GFR ( Amer) Est GFR (Non-Af Amer) Random Glucose Calcium Total Bilirubin AST ALT Alkaline Phosphatase Total Protein Albumin Globulin Albumin/Globulin Ratio Procalcitonin Arterial Blood Potassium 3.6 08/25/17 08/25/17 06:28 16:04 WBC RBC Hgb Hct MCV MCH MCHC RDW Plt Count MPV Neut % (Auto) Lymph % (Auto) [place] % (Auto) Eos % (Auto) Baso % (Auto) Neut # (Auto) Lymph # (Auto) [place] # (Auto) Eos # (Auto) Baso # (Auto) PT INR APTT Puncture Site pCO2 pO2 HCO3 ABG pH ABG Total CO2 ABG O2 Saturation ABG Base Excess [place]lin Test ABG Potassium A-a O2 Difference Respiratory Index Sodium 138 Chloride 109 H Glucose Lactate Vent Mode Mechanical Rate FiO2 Tidal Volume PEEP Potassium 4.1 Carbon Dioxide 20 L Anion Gap 14 BUN 18 Creatinine 0.8 Est GFR ( Amer) > 60 Est GFR (Non-Af Amer) > 60 Random Glucose 58 L Calcium 7.2 L Total Bilirubin 0.9 AST 32 ALT < 6 L D Alkaline Phosphatase 59 Total Protein 6.6 Albumin 2.5 L D Globulin 4.1 H Albumin/Globulin Ratio 0.6 L Procalcitonin 9.69 H Arterial Blood Potassium Attending/Attestation - Attestation I have personally seen and examined this patient.: Yes I have fully participated in the care of the patient.: Yes I have reviewed all pertinent clinical information: Yes Notes (Text): 08/25/17 17:13 Patient seen and examined in the intensive care unit. He remained intubated on ventilatory support Being treated for pneumonia Continue IV antibiotics Patient started on PEG feeding IV fluids Pressors if remains hypotensive follow-up culture and sensitivity
--- NOTE | 2017-08-25 13:27 | CARD ---
APPROVED REPORT EKG Measurement Heart [id number] <Conclusion> Sinus tachycardia Left axis deviation Cannot rule out Anterior infarct, age undetermined ST & T wave abnormality, consider lateral ischemia Abnormal ECG
--- NOTE | 2017-08-25 23:53 | CP.PCM.PN ---
Subjective - Date & Time of Evaluation Date of Evaluation: 08/25/17 Time of Evaluation: 19:40 - Subjective Subjective: CC: fever Pt who is known for PVD, seizure disorder was admitted with sepsis and he is intubated and is on MV Pt is seen and evaluated at bedside, right ow he is sedated, febrile on antibiotics Objective - Vital Signs/Intake and Output Vital Signs (last 24 hours): Temp Pulse Resp BP Pulse Ox 98.6 F 105 H 24 99/54 L 99 08/25/17 20:00 08/25/17 23:00 08/25/17 23:00 08/25/17 22:53 08/25/17 23:00 Intake and Output: 08/25/17 08/26/17 18:59 06:59 Intake Total 1170 670 Output Total 490 105 Balance 680 565 - Medications Medications: Current Medications Acetaminophen (Tylenol 650 Mg Supp) 650 mg [place] Q4 PRN PRN Reason: Fever >100.4 F Carbamazepine (Tegretol) 100 mg PEG Q8 [facility] Last Admin: 08/25/17 21:38 Dose: 100 mg Enoxaparin Sodium (Lovenox) 40 mg SC DAILY [facility] Last Admin: 08/25/17 10:19 Dose: 40 mg Famotidine (Pepcid) 20 mg IVP Q12 [facility] Last Admin: 08/25/17 21:45 Dose: Not Given Sodium Chloride (Sodium Chloride 0.9%) 1,000 mls @ 100 mls/hr IV .Q10H [facility] Last Admin: 08/25/17 17:55 Dose: 100 mls/hr Vancomycin/Sodium Chloride (Vancomycin 1 Gm/Ns 200 Ml) 1 gm in 200 mls @ 133 mls/hr IVPB Q12H [facility] PRN Reason: Protocol Stop: 08/29/17 19:31 Last Admin: 08/25/17 18:35 Dose: 133 mls/hr Piperacillin Sod/Tazobactam (Sod 3.375 gm/ Sodium Chloride) 100 mls @ 100 mls/ hr IVPB Q8H [facility] PRN Reason: Protocol Last Admin: 08/25/17 17:52 Dose: 100 mls/hr Lorazepam (Ativan) 2 mg IVP Q3H PRN PRN Reason: Agitation Rosuvastatin Calcium (Crestor) 5 mg PO HS [facility] Last Admin: 08/25/17 21:38 Dose: 5 mg Valproate Sodium (Depakene Oral Soln) 250 mg PEG QID [facility] Last Admin: 08/25/17 21:38 Dose: 250 mg - Labs Labs: 08/25/17 06:28 08/25/17 06:28 PT 17.7 SECONDS (9.7-12.2) H 08/25/17 06:28 INR 1.6 08/25/17 06:28 APTT 36 SECONDS (21-34) H D 08/25/17 06:28 - Constitutional Appears: No Acute Distress - Head Exam Head Exam: ATRAUMATIC, NORMAL INSPECTION, NORMOCEPHALIC - Eye Exam Eye Exam: EOMI, Normal appearance, PERRL Pupil Exam: NORMAL ACCOMODATION, PERRL - ENT Exam ENT Exam: Mucous Membranes Moist, Normal Exam - Neck Exam Neck Exam: Full ROM, Normal Inspection. absent: Lymphadenopathy - Respiratory Exam Respiratory Exam: Decreased Breath Sounds, Rales, Rhonchi - Cardiovascular Exam Cardiovascular Exam: REGULAR RHYTHM, +S1, +S2. absent: Murmur - GI/Abdominal Exam GI & Abdominal Exam: Soft, Normal Bowel Sounds. absent: Tenderness Assessment and Plan (1) Sepsis Status: Acute (2) Fever Status: Acute (3) Seizure disorder Status: Acute (4) COPD (chronic obstructive pulmonary disease) Status: Chronic (5) PVD (peripheral vascular disease) Status: Chronic (6) Respiratory failure Status: Acute
[2017-08-26] MEDS: Sodium Chloride 0.9% 1,000 ML IV SCH (00:04)
[2017-08-26] MEDS: Piperacillin/Tazobact 3.375 GM in Sodium Chloride 100 ML IVPB SCH ×3 (03:06→17:32)
[2017-08-26 05:43] LABS: ARTERIAL BLOOD GAS HCO3 20.3 mmol/L (21-28); ARTERIAL BLOOD GAS O2 SAT 100.3 % (95-98); ARTERIAL BLOOD GAS PCO2 26 mm/Hg (35-45); ARTERIAL BLOOD GAS PH 7.42 (7.35-7.45); ARTERIAL BLOOD GAS PO2 182 mm/Hg (80-100); ARTERIAL BLOOD GAS TCO2 17.7 mmol/L (22-28)
[2017-08-26] MEDS: carBAMazepine Chew Tab 100 MG Chew Tab PEG SCH ×3 (05:56→21:01)
[2017-08-26 06:45] LABS: BASO % 0.3 % (0.0-2.0); EOS % 0.4 % (0.0-4.0); HEMOGLOBIN 7.4 g/dL (12.0-18.0); LYMPH # 0.9 K/uL (1.0-4.3); MEAN CELL VOLUME 85.3 fL (80.0-94.0); MEAN CORPUSCULAR HEMOGLOBIN 28.3 pg (27.0-31.0); MEAN CORPUSCULAR HGB CONC 33.2 g/dL (33.0-37.0); MEAN PLATELET VOLUME 8.4 fL (7.2-11.7); MONO # 0.9 K/uL (0.0-0.8); MONO % 10.1 % (0.0-10.0); NEUT # 7.3 K/uL (1.8-7.0); NEUT % 79.2 % (50.0-75.0); RBC 2.61 Mil/uL (4.40-5.90); RED CELL DISTRIBUTION WIDTH 16.5 % (11.5-14.5); WHITE BLOOD COUNT 9.2 K/uL (4.8-10.8)
[2017-08-26] MEDS: Vancomycin 1 gm/NS 200 ml 1 GM/200 ML BAG IVPB SCH ×2 (06:50→18:42)
[2017-08-26 06:53] LABS: ALB/GLOB RATIO 0.5 (1.0-2.1); ALBUMIN 2.1 g/dL (3.5-5.0); ALT/SGPT < 6 U/L (21-72); AST/SGOT 35 U/L (17-59); BLOOD UREA NITROGEN 16 mg/dL (9-20); GFR AFRICAN-AMERICAN > 60; GFR NON-AFRICAN AMERICAN > 60
[2017-08-26 07:16] LABS: PROTHROMBIN TIME 18.7 SECONDS (9.7-12.2)
[2017-08-26 07:17] LABS: INR 1.7
[2017-08-26] MEDS: Enoxaparin 40 mg Syringe SC SCH (09:14)
[2017-08-26] MEDS: Valproic Acid 250 mg/5 ml UD Cup PEG SCH ×4 (09:14→21:01)
--- NOTE | 2017-08-26 09:48 | RAD ---
Chest x-ray single frontal view History: Follow-up. Comparison: 08/25/2017 Findings Lines and tubes stable position. Again seen are postsurgical changes in the right lung apex with low lung volumes on the right as well as shift of trachea and mediastinum to the right. Persistent cystic lucencies noted at the right lung apex with more focal consolidative changes seen in the right suprahilar region. Blunted left costophrenic angle. Tortuous aorta. Degenerative changes in the spine. Impression: No significant interval change.
--- NOTE | 2017-08-26 15:43 | CP.PCM.CON ---
History of Present Illness - History of Present Illness History of Present Illness: dictated Past Patient History - Infectious Disease Hx of Infectious Diseases: None - Past Medical History & Family History Past Medical History?: Yes - Past Social History Smoking Status: Unknown If Ever Smoked - CARDIAC Hx Hypertension: Yes - PULMONARY Hx Asthma: Yes Hx Chronic Obstructive Pulmonary Disease (COPD): Yes Hx Pneumonia: Yes - NEUROLOGICAL Hx Dementia: Yes Hx Seizures: Yes Hx Transient Ischemic Attacks (TIA): Yes - HEENT Hx HEENT Problems: Yes Other/Comment: RT EYELID DROOP - RENAL Hx Chronic Kidney Disease: No - ENDOCRINE/METABOLIC Hx Endocrine Disorders: No - HEMATOLOGICAL/ONCOLOGICAL Hx Anemia: Yes - INTEGUMENTARY Hx Dermatological Problems: Yes Other/Comment: multiple wounds - MUSCULOSKELETAL/RHEUMATOLOGICAL Hx Arthritis: Yes (BACK; KNEE R>L) - GASTROINTESTINAL Hx Gastrointestinal Disorders: No - GENITOURINARY/GYNECOLOGICAL Hx Genitourinary Disorders: Yes - PSYCHIATRIC Hx Substance Use: No - SURGICAL HISTORY Hx Surgeries: Yes Hx Amputation: Yes (right AKA) - ANESTHESIA Hx Anesthesia: Yes Hx Anesthesia Reactions: No Hx Malignant Hyperthermia: No Meds Allergies/Adverse Reactions: Allergies Allergy/AdvReac Type Severity Reaction Status Date / Time No Known Allergies Allergy Verified 07/25/17 01:13 - Medications Medications: Current Medications Acetaminophen (Tylenol 650 Mg Supp) 650 mg IN Q4 PRN PRN Reason: Fever >100.4 F Carbamazepine (Tegretol) 100 mg PEG Q8 [facility] Last Admin: 08/26/17 13:11 Dose: 100 mg Enoxaparin Sodium (Lovenox) 40 mg SC DAILY [facility] Last Admin: 08/26/17 09:14 Dose: 40 mg Vancomycin/Sodium Chloride (Vancomycin 1 Gm/Ns 200 Ml) 1 gm in 200 mls @ 133 mls/hr IVPB Q12H [facility] PRN Reason: Protocol Stop: 08/29/17 19:31 Last Admin: 08/26/17 06:50 Dose: 133 mls/hr Piperacillin Sod/Tazobactam (Sod 3.375 gm/ Sodium Chloride) 100 mls @ 100 mls/ hr IVPB Q8H [facility] PRN Reason: Protocol Last Admin: 08/26/17 09:12 Dose: 100 mls/hr Potassium Chloride (Potassium Chloride 20 Meq/100 Ml) 20 meq in 100 mls @ 50 mls/hr IVPB Q2H [facility] Stop: 08/26/17 15:59 Last Admin: 08/26/17 13:05 Dose: 50 mls/hr Pantoprazole Sodium (Protonix Inj) 40 mg IVP DAILY [facility] Rosuvastatin Calcium (Crestor) 5 mg PO HS [facility] Last Admin: 08/25/17 21:38 Dose: 5 mg Valproate Sodium (Depakene Oral Soln) 250 mg PEG QID [facility] Last Admin: 08/26/17 13:11 Dose: 250 mg Results - Vital Signs Recent Vital Signs: Last Vital Signs Temp 98.8 F 08/26/17 14:53 Pulse 86 08/26/17 15:00 Resp 25 H 08/26/17 15:00 BP 106/62 08/26/17 15:00 Pulse Ox 99 08/26/17 15:00 - Labs Result Diagrams: 08/26/17 06:28 08/26/17 06:28 Labs: Laboratory Results - last 24 hr 08/25/17 08/26/17 08/26/17 16:04 05:17 06:28 WBC 9.2 RBC 2.61 L Hgb 7.4 L D Hct 22.2 L MCV 85.3 MCH 28.3 MCHC 33.2 RDW 16.5 H Plt Count 218 MPV 8.4 Neut % (Auto) 79.2 H Lymph % (Auto) 10.0 L [place] % (Auto) 10.1 H Eos % (Auto) 0.4 Baso % (Auto) 0.3 Neut # (Auto) 7.3 H Lymph # (Auto) 0.9 L [place] # (Auto) 0.9 H Eos # (Auto) 0.0 Baso # (Auto) 0.0 PT INR APTT Puncture Site Rb pCO2 26 L pO2 182 H HCO3 20.3 L ABG pH 7.42 ABG Total CO2 17.7 L ABG O2 Saturation 100.3 H ABG Base Excess -6.0 L Collin Test Na ABG Potassium 2.4 L* A-a O2 Difference 213.0 Respiratory Index 1.2 Sodium 143.0 Chloride 117.0 H Glucose 124 H Lactate 1.6 Vent Mode Prvc Mechanical Rate 14 FiO2 60.0 Tidal Volume 450 PEEP 5 Crit Value Called To Krupa rn Crit Value Called By Mary upholstery instructor Crit Value Read Back Y Blood Gas Notified Time 542 Potassium Carbon Dioxide Anion Gap BUN Creatinine Est GFR ( Amer) Est GFR (Non-Af Amer) Random Glucose Calcium Total Bilirubin AST ALT Alkaline Phosphatase Total Protein Albumin Globulin Albumin/Globulin Ratio Procalcitonin 9.69 H Arterial Blood Potassium 2.4 L* Blood Type Antibody Screen 08/26/17 08/26/17 08/26/17 06:28 06:28 06:28 WBC RBC Hgb Hct MCV MCH MCHC RDW Plt Count MPV Neut % (Auto) Lymph % (Auto) [place] % (Auto) Eos % (Auto) Baso % (Auto) Neut # (Auto) Lymph # (Auto) [place] # (Auto) Eos # (Auto) Baso # (Auto) PT 18.7 H INR 1.7 APTT 38 H Puncture Site pCO2 pO2 HCO3 ABG pH ABG Total CO2 ABG O2 Saturation ABG Base Excess Collin Test ABG Potassium A-a O2 Difference Respiratory Index Sodium 141 Chloride 111 H Glucose Lactate Vent Mode Mechanical Rate FiO2 Tidal Volume PEEP Crit Value Called To Crit Value Called By Crit Value Read Back Blood Gas Notified Time Potassium 2.9 L Carbon Dioxide 21 L Anion Gap 12 BUN 16 Creatinine 0.7 L Est GFR ( Amer) > 60 Est GFR (Non-Af Amer) > 60 Random Glucose 123 H Calcium 7.0 L Total Bilirubin 0.5 AST 35 ALT < 6 L Alkaline Phosphatase 60 Total Protein 5.8 L Albumin 2.1 L Globulin 3.7 Albumin/Globulin Ratio 0.5 L Procalcitonin 11.81 H Arterial Blood Potassium Blood Type Antibody Screen 08/26/17 12:40 WBC RBC Hgb Hct MCV MCH MCHC RDW Plt Count MPV Neut % (Auto) Lymph % (Auto) [place] % (Auto) Eos % (Auto) Baso % (Auto) Neut # (Auto) Lymph # (Auto) [place] # (Auto) Eos # (Auto) Baso # (Auto) PT INR APTT Puncture Site pCO2 pO2 HCO3 ABG pH ABG Total CO2 ABG O2 Saturation ABG Base Excess Collin Test ABG Potassium A-a O2 Difference Respiratory Index Sodium Chloride Glucose Lactate Vent Mode Mechanical Rate FiO2 Tidal Volume PEEP Crit Value Called To Crit Value Called By Crit Value Read Back Blood Gas Notified Time Potassium Carbon Dioxide Anion Gap BUN Creatinine Est GFR ( Amer) Est GFR (Non-Af Amer) Random Glucose Calcium Total Bilirubin AST ALT Alkaline Phosphatase Total Protein Albumin Globulin Albumin/Globulin Ratio Procalcitonin Arterial Blood Potassium Blood Type O POSITIVE Antibody Screen Negative
--- NOTE | 2017-08-26 17:53 | CP.PCM.CON ---
History of Present Illness - History of Present Illness History of Present Illness: reason for consultation: respiratory failure/ventilatory support 77 year old male with PMHx of Arthritis, Asthma, COPD, Severe Dementia, HTN, Pneumonia, Seizures, TIA, and Right AKA Transferred from [facility] due to fever of an unknown duration. patient was intubated in the ICU for respiratory distress and hypotension. Copious purulent secretions aspirated from the ET tube , patient code sepsis and started on IV antibiotics and fluids resuscitation. Review of Systems - Review of Systems Systems not reviewed;Unavailable: Intubated Past Patient History - Infectious Disease Hx of Infectious Diseases: None - Past Medical History & Family History Past Medical History?: Yes - Past Social History Smoking Status: Unknown If Ever Smoked - CARDIAC Hx Hypertension: Yes - PULMONARY Hx Asthma: Yes Hx Chronic Obstructive Pulmonary Disease (COPD): Yes Hx Pneumonia: Yes - NEUROLOGICAL Hx Dementia: Yes Hx Seizures: Yes Hx Transient Ischemic Attacks (TIA): Yes - HEENT Hx HEENT Problems: Yes Other/Comment: RT EYELID DROOP - RENAL Hx Chronic Kidney Disease: No - ENDOCRINE/METABOLIC Hx Endocrine Disorders: No - HEMATOLOGICAL/ONCOLOGICAL Hx Anemia: Yes - INTEGUMENTARY Hx Dermatological Problems: Yes Other/Comment: multiple wounds - MUSCULOSKELETAL/RHEUMATOLOGICAL Hx Arthritis: Yes (BACK; KNEE R>L) - GASTROINTESTINAL Hx Gastrointestinal Disorders: No - GENITOURINARY/GYNECOLOGICAL Hx Genitourinary Disorders: Yes - PSYCHIATRIC Hx Substance Use: No - SURGICAL HISTORY Hx Surgeries: Yes Hx Amputation: Yes (right AKA) - ANESTHESIA Hx Anesthesia: Yes Hx Anesthesia Reactions: No Hx Malignant Hyperthermia: No Meds Allergies/Adverse Reactions: Allergies Allergy/AdvReac Type Severity Reaction Status Date / Time No Known Allergies Allergy Verified 07/25/17 01:13 - Medications Medications: Current Medications Acetaminophen (Tylenol 650 Mg Supp) 650 mg [place] Q4 PRN PRN Reason: Fever >100.4 F Carbamazepine (Tegretol) 100 mg PEG Q8 [facility] Last Admin: 08/26/17 13:11 Dose: 100 mg Enoxaparin Sodium (Lovenox) 40 mg SC DAILY [facility] Last Admin: 08/26/17 09:14 Dose: 40 mg Vancomycin/Sodium Chloride (Vancomycin 1 Gm/Ns 200 Ml) 1 gm in 200 mls @ 133 mls/hr IVPB Q12H [facility] PRN Reason: Protocol Stop: 08/29/17 19:31 Last Admin: 08/26/17 06:50 Dose: 133 mls/hr Piperacillin Sod/Tazobactam (Sod 3.375 gm/ Sodium Chloride) 100 mls @ 100 mls/ hr IVPB Q8H [facility] PRN Reason: Protocol Last Admin: 08/26/17 17:32 Dose: 100 mls/hr Pantoprazole Sodium (Protonix Inj) 40 mg IVP DAILY [facility] Rosuvastatin Calcium (Crestor) 5 mg PO HS [facility] Last Admin: 08/25/17 21:38 Dose: 5 mg Valproate Sodium (Depakene Oral Soln) 250 mg PEG QID [facility] Last Admin: 08/26/17 17:33 Dose: 250 mg Physical Exam - Head Exam Head Exam: ATRAUMATIC, NORMOCEPHALIC - ENT Exam ENT Exam: Mucous Membranes Moist - Neck Exam Neck exam: Positive for: Normal Inspection - Respiratory Exam Respiratory Exam: Decreased Breath Sounds - Cardiovascular Exam Cardiovascular Exam: REGULAR RHYTHM - GI/Abdominal Exam GI & Abdominal Exam: Normal Bowel Sounds - Extremities Exam Extremities exam: Positive for: normal inspection Results - Vital Signs Recent Vital Signs: Last Vital Signs Temp 97.8 F 08/26/17 16:03 Pulse 81 08/26/17 16:03 Resp 22 08/26/17 16:03 BP 90/53 L 08/26/17 16:03 Pulse Ox 100 08/26/17 16:00 - Labs Result Diagrams: 08/26/17 06:28 08/26/17 06:28 Labs: Laboratory Results - last 24 hr 08/26/17 08/26/17 08/26/17 05:17 06:28 06:28 WBC 9.2 RBC 2.61 L Hgb 7.4 L D Hct 22.2 L MCV 85.3 MCH 28.3 MCHC 33.2 RDW 16.5 H Plt Count 218 MPV 8.4 Neut % (Auto) 79.2 H Lymph % (Auto) 10.0 L [place] % (Auto) 10.1 H Eos % (Auto) 0.4 Baso % (Auto) 0.3 Neut # (Auto) 7.3 H Lymph # (Auto) 0.9 L [place] # (Auto) 0.9 H Eos # (Auto) 0.0 Baso # (Auto) 0.0 PT 18.7 H INR 1.7 APTT 38 H Puncture Site Rb pCO2 26 L pO2 182 H HCO3 20.3 L ABG pH 7.42 ABG Total CO2 17.7 L ABG O2 Saturation 100.3 H ABG Base Excess -6.0 L Collin Test Na ABG Potassium 2.4 L* A-a O2 Difference 213.0 Respiratory Index 1.2 Sodium 143.0 Chloride 117.0 H Glucose 124 H Lactate 1.6 Vent Mode Prvc Mechanical Rate 14 FiO2 60.0 Tidal Volume 450 PEEP 5 Crit Value Called To Krupa rn Crit Value Called By Mary title i assistant Crit Value Read Back Y Blood Gas Notified Time 542 Potassium Carbon Dioxide Anion Gap BUN Creatinine Est GFR ( Amer) Est GFR (Non-Af Amer) Random Glucose Calcium Total Bilirubin AST ALT Alkaline Phosphatase Total Protein Albumin Globulin Albumin/Globulin Ratio Procalcitonin Arterial Blood Potassium 2.4 L* Blood Type Antibody Screen 08/26/17 08/26/17 08/26/17 06:28 06:28 12:40 WBC RBC Hgb Hct MCV MCH MCHC RDW Plt Count MPV Neut % (Auto) Lymph % (Auto) [place] % (Auto) Eos % (Auto) Baso % (Auto) Neut # (Auto) Lymph # (Auto) [place] # (Auto) Eos # (Auto) Baso # (Auto) PT INR APTT Puncture Site pCO2 pO2 HCO3 ABG pH ABG Total CO2 ABG O2 Saturation ABG Base Excess Collin Test ABG Potassium A-a O2 Difference Respiratory Index Sodium 141 Chloride 111 H Glucose Lactate Vent Mode Mechanical Rate FiO2 Tidal Volume PEEP Crit Value Called To Crit Value Called By Crit Value Read Back Blood Gas Notified Time Potassium 2.9 L Carbon Dioxide 21 L Anion Gap 12 BUN 16 Creatinine 0.7 L Est GFR ( Amer) > 60 Est GFR (Non-Af Amer) > 60 Random Glucose 123 H Calcium 7.0 L Total Bilirubin 0.5 AST 35 ALT < 6 L Alkaline Phosphatase 60 Total Protein 5.8 L Albumin 2.1 L Globulin 3.7 Albumin/Globulin Ratio 0.5 L Procalcitonin 11.81 H Arterial Blood Potassium Blood Type O POSITIVE Antibody Screen Negative Assessment & Plan (1) Respiratory failure Status: Acute Comment: continue ventilory support. IV antibiotics. Transfuse packed RBCs. peg feeding. Followup culture and sensitivity (2) Anemia Status: Acute (3) Pneumonia Status: Acute
--- NOTE | 2017-08-26 18:03 | CP.CCUPN ---
<DixonerickNiraj - Last Filed: 08/26/17 18:01> CCU Subjective - Physician Review Subjective (Free Text): Patient seen and examined at bedside. Currently on Mechanical Ventilation. CCU Objective - Vital Signs / Intake & Output Vital Signs (Last 4 hours): Vital Signs Temp Pulse Resp BP Pulse Ox 08/26/17 16:03 97.8 F 81 22 90/53 L 08/26/17 16:00 97.8 F 83 23 90/52 L 100 08/26/17 15:23 97.8 F 84 21 90/50 L 08/26/17 15:00 86 25 H 106/62 99 08/26/17 14:53 98.8 F 81 22 114/68 08/26/17 14:38 98.7 F 82 21 115/69 08/26/17 14:27 83 25 H 99/58 L 100 08/26/17 14:23 98.7 F 83 22 99/58 L Intake and Output (Last 8hrs): Intake & Output 08/26/17 08/26/17 08/26/17 06:59 14:59 22:59 Intake Total 1360 1200 80 Output Total 410 Balance 950 1200 80 Weight 126 lb Intake: Intake, IV Amount 1000 900 Left Distal Port Internal 1000 900 Jugular Tube Feeding 360 200 80 Blood Product 0 Apheresis Rbc Cp2d As3 Lr 0 1st Unit [id number] Other 100 Output: Urine 410 Urethral (Brown) 410 - Physical Exam Physical Exam Limitations: Positive for: Altered Mental Status Head: Positive for: Atraumatic, Normocephalic Pupils: Positive for: PERRL Mouth: Negative for: Moist Mucous Membranes Respiratory/Chest: Positive for: Rales (B/L ), Other (Intubated). Negative for : Clear to Auscultation Cardiovascular: Positive for: Normal S1, S2. Negative for: Tachycardic Abdomen: Positive for: Normal Bowel Sounds. Negative for: Distention Neurological: Negative for: GCS=15 (10T) Psychiatric: Negative for: Alert - Medications Active Medications: Active Medications Generic Name Dose Route Start Last Admin Trade Name Freq PRN Reason Stop Dose Admin Acetaminophen 650 mg 08/25/17 17:20 Tylenol 650 Mg Supp NH Q4 PRN Fever >100.4 F Carbamazepine 100 mg 08/24/17 22:00 08/26/17 13:11 Tegretol PEG 100 mg Q8 AMY Administration Enoxaparin Sodium 40 mg 08/24/17 18:00 08/26/17 09:14 Lovenox SC 40 mg DAILY AMY Administration Vancomycin/Sodium Chloride 1 gm in 200 mls @ 133 mls/hr 08/24/17 19:30 06:50 Vancomycin 1 Gm/Ns 200 Ml IVPB 08/29/17 19:31 133 mls/hr Q12H AMY Administration Protocol Piperacillin Sod/Tazobactam 100 mls @ 100 mls/hr 08/24/17 18:00 08/26/17 17: 32 Sod 3.375 gm/ Sodium Chloride IVPB 100 mls/hr Q8H AMY Administration Protocol Pantoprazole Sodium 40 mg 08/27/17 10:00 Protonix Inj IVP DAILY AMY Rosuvastatin Calcium 5 mg 08/24/17 22:00 08/25/17 21:38 Crestor PO 5 mg HS AMY Administration Valproate Sodium 250 mg 08/24/17 18:00 08/26/17 17:33 Depakene Oral Soln PEG 250 mg QID AMY Administration - Patient Studies Lab Studies: Microbiology Studies 08/24/17 13:31 Blood Culture - Preliminary Blood NO GROWTH AFTER 48 HOURS 08/24/17 13:31 Blood Culture - Preliminary Blood NO GROWTH AFTER 48 HOURS 08/24/17 17:51 MRSA Culture (Admit) - Final Nose MRSA NOT DETECTED 08/25/17 14:28 Gram Stain - Final Ankle - Left Lab Studies 08/26/17 08/26/17 08/26/17 Range/Units 12:40 06:28 06:28 WBC (4.8-10.8) K/uL RBC (4.40-5.90) Mil/uL Hgb (12.0-18.0) g/dL Hct (35.0-51.0) % MCV (80.0-94.0) fL MCH (27.0-31.0) pg MCHC (33.0-37.0) g/dL RDW (11.5-14.5) % Plt Count (130-400) K/uL MPV (7.2-11.7) fL Neut % (Auto) (50.0-75.0) % Lymph % (Auto) (20.0-40.0) % [place] % (Auto) (0.0-10.0) % Eos % (Auto) (0.0-4.0) % Baso % (Auto) (0.0-2.0) % Neut # (Auto) (1.8-7.0) K/uL Lymph # (Auto) (1.0-4.3) K/uL [place] # (Auto) (0.0-0.8) K/uL Eos # (Auto) (0.0-0.7) K/uL Baso # (Auto) (0.0-0.2) K/uL PT (9.7-12.2) SECONDS INR APTT (21-34) SECONDS Puncture Site pCO2 (35-45) mm/Hg pO2 (80-100) mm/Hg HCO3 (21-28) mmol/L ABG pH (7.35-7.45) ABG Total CO2 (22-28) mmol/L ABG O2 Saturation (95-98) % ABG Base Excess (-2.0-3.0) mmol/L Collin Test ABG Potassium (3.6-5.2) mmol/L A-a O2 Difference mm/Hg Respiratory Index Sodium 141 (132-148) mmol/l Chloride 111 H (98-107) mmol/L Glucose (75-110) mg/dl Lactate (0.7-2.1) mmol/L Vent Mode Mechanical Rate FiO2 % Tidal Volume PEEP Crit Value Called To Crit Value Called By Crit Value Read Back Blood Gas Notified Time Potassium 2.9 L (3.6-5.2) mmol/L Carbon Dioxide 21 L (22-30) mmol/L Anion Gap 12 (10-20) BUN 16 (9-20) mg/dL Creatinine 0.7 L (0.8-1.5) mg/dL Est GFR ( Amer) > 60 Est GFR (Non-Af Amer) > 60 Random Glucose 123 H (75-110) mg/dL Calcium 7.0 L (8.6-10.4) mg/dl Total Bilirubin 0.5 (0.2-1.3) mg/dL AST 35 (17-59) U/L ALT < 6 L (21-72) U/L Alkaline Phosphatase 60 (38-126) U/L Total Protein 5.8 L (6.3-8.3) g/dL Albumin 2.1 L (3.5-5.0) g/dL Globulin 3.7 (2.2-3.9) gm/dL Albumin/Globulin Ratio 0.5 L (1.0-2.1) Procalcitonin 11.81 H (0.19-0.49) NG/ML Arterial Blood Potassium (3.6-5.2) mmol/L Blood Type O POSITIVE Antibody Screen Negative 08/26/17 08/26/17 08/26/17 Range/Units 06:28 06:28 05:17 WBC 9.2 (4.8-10.8) K/uL RBC 2.61 L (4.40-5.90) Mil/uL Hgb 7.4 L D (12.0-18.0) g/dL Hct 22.2 L (35.0-51.0) % MCV 85.3 (80.0-94.0) fL MCH 28.3 (27.0-31.0) pg MCHC 33.2 (33.0-37.0) g/dL RDW 16.5 H (11.5-14.5) % Plt Count 218 (130-400) K/uL MPV 8.4 (7.2-11.7) fL Neut % (Auto) 79.2 H (50.0-75.0) % Lymph % (Auto) 10.0 L (20.0-40.0) % [place] % (Auto) 10.1 H (0.0-10.0) % Eos % (Auto) 0.4 (0.0-4.0) % Baso % (Auto) 0.3 (0.0-2.0) % Neut # (Auto) 7.3 H (1.8-7.0) K/uL Lymph # (Auto) 0.9 L (1.0-4.3) K/uL [place] # (Auto) 0.9 H (0.0-0.8) K/uL Eos # (Auto) 0.0 (0.0-0.7) K/uL Baso # (Auto) 0.0 (0.0-0.2) K/uL PT 18.7 H (9.7-12.2) SECONDS INR 1.7 APTT 38 H (21-34) SECONDS Puncture Site Rb pCO2 26 L (35-45) mm/Hg pO2 182 H (80-100) mm/Hg HCO3 20.3 L (21-28) mmol/L ABG pH 7.42 (7.35-7.45) ABG Total CO2 17.7 L (22-28) mmol/L ABG O2 Saturation 100.3 H (95-98) % ABG Base Excess -6.0 L (-2.0-3.0) mmol/L Collin Test Na ABG Potassium 2.4 L* (3.6-5.2) mmol/L A-a O2 Difference 213.0 mm/Hg Respiratory Index 1.2 Sodium 143.0 (132-148) mmol/l Chloride 117.0 H (98-107) mmol/L Glucose 124 H (75-110) mg/dl Lactate 1.6 (0.7-2.1) mmol/L Vent Mode Prvc Mechanical Rate 14 FiO2 60.0 % Tidal Volume 450 PEEP 5 Crit Value Called To Krupa rn Crit Value Called By Mary office assistance Crit Value Read Back Y Blood Gas Notified Time 542 Potassium (3.6-5.2) mmol/L Carbon Dioxide (22-30) mmol/L Anion Gap (10-20) BUN (9-20) mg/dL Creatinine (0.8-1.5) mg/dL Est GFR ( Amer) Est GFR (Non-Af Amer) Random Glucose (75-110) mg/dL Calcium (8.6-10.4) mg/dl Total Bilirubin (0.2-1.3) mg/dL AST (17-59) U/L ALT (21-72) U/L Alkaline Phosphatase (38-126) U/L Total Protein (6.3-8.3) g/dL Albumin (3.5-5.0) g/dL Globulin (2.2-3.9) gm/dL Albumin/Globulin Ratio (1.0-2.1) Procalcitonin (0.19-0.49) NG/ML Arterial Blood Potassium 2.4 L* (3.6-5.2) mmol/L Blood Type Antibody Screen Laboratory Results - last 24 hr 08/26/17 08/26/17 08/26/17 05:17 06:28 06:28 WBC 9.2 RBC 2.61 L Hgb 7.4 L D Hct 22.2 L MCV 85.3 MCH 28.3 MCHC 33.2 RDW 16.5 H Plt Count 218 MPV 8.4 Neut % (Auto) 79.2 H Lymph % (Auto) 10.0 L [place] % (Auto) 10.1 H Eos % (Auto) 0.4 Baso % (Auto) 0.3 Neut # (Auto) 7.3 H Lymph # (Auto) 0.9 L [place] # (Auto) 0.9 H Eos # (Auto) 0.0 Baso # (Auto) 0.0 PT 18.7 H INR 1.7 APTT 38 H Puncture Site Rb pCO2 26 L pO2 182 H HCO3 20.3 L ABG pH 7.42 ABG Total CO2 17.7 L ABG O2 Saturation 100.3 H ABG Base Excess -6.0 L Collin Test Na ABG Potassium 2.4 L* A-a O2 Difference 213.0 Respiratory Index 1.2 Sodium 143.0 Chloride 117.0 H Glucose 124 H Lactate 1.6 Vent Mode Prvc Mechanical Rate 14 FiO2 60.0 Tidal Volume 450 PEEP 5 Crit Value Called To Krupa rn Crit Value Called By Mary office assistance Crit Value Read Back Y Blood Gas Notified Time 542 Potassium Carbon Dioxide Anion Gap BUN Creatinine Est GFR ( Amer) Est GFR (Non-Af Amer) Random Glucose Calcium Total Bilirubin AST ALT Alkaline Phosphatase Total Protein Albumin Globulin Albumin/Globulin Ratio Procalcitonin Arterial Blood Potassium 2.4 L* Blood Type Antibody Screen 08/26/17 08/26/17 08/26/17 06:28 06:28 12:40 WBC RBC Hgb Hct MCV MCH MCHC RDW Plt Count MPV Neut % (Auto) Lymph % (Auto) [place] % (Auto) Eos % (Auto) Baso % (Auto) Neut # (Auto) Lymph # (Auto) [place] # (Auto) Eos # (Auto) Baso # (Auto) PT INR APTT Puncture Site pCO2 pO2 HCO3 ABG pH ABG Total CO2 ABG O2 Saturation ABG Base Excess Collin Test ABG Potassium A-a O2 Difference Respiratory Index Sodium 141 Chloride 111 H Glucose Lactate Vent Mode Mechanical Rate FiO2 Tidal Volume PEEP Crit Value Called To Crit Value Called By Crit Value Read Back Blood Gas Notified Time Potassium 2.9 L Carbon Dioxide 21 L Anion Gap 12 BUN 16 Creatinine 0.7 L Est GFR ( Amer) > 60 Est GFR (Non-Af Amer) > 60 Random Glucose 123 H Calcium 7.0 L Total Bilirubin 0.5 AST 35 ALT < 6 L Alkaline Phosphatase 60 Total Protein 5.8 L Albumin 2.1 L Globulin 3.7 Albumin/Globulin Ratio 0.5 L Procalcitonin 11.81 H Arterial Blood Potassium Blood Type O POSITIVE Antibody Screen Negative Review of Systems - Review of Systems Systems not reviewed;Unavailable: Intubated Assessment/Plan - Assessment and Plan (Free Text) Assessment: 77 year old male with PMHx of Arthritis, Asthma, COPD, Severe Dementia, HTN, Pneumonia, Seizures, TIA, and 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 Code Sepsis called in ED. Patient admitted to ICU for evaluation and treatment of SEPSIS. Patient began desating requiring emergent intubation. Plan: Neuro: GCS: 10T Sedation: Etomidate for Intubation then further sedated with 2mg Ativan. A: Severe Dementia, Hx of Seizure Home Carbamazepine 100mg Q8 Ativan PRN for agitation. Cardio: A: HTN, Hx of TIA, Hypotension Central Line placed in Right IJ. Stat lasix given in the ED. Cont. Lasix Daily Fluid Bolus and 1 Unit of PRBC given today Pulm: CXR (Admission): Stable postsurgical changes in the right lung with low lung volume and shift of mediastinal to the right. No acute findings. A: Hypoxic Res. Failure, Asthma, COPD Intubated Emergently: ON PRVC: 100%Fi02, 14 RR, 450 TV, 5 PEEP ABG (Adm): 7.4/31/326/21.6 DuoNebs Schedule Wean Fi02 as tolerated CPAP Trial. Endo A: Hypoglycemia stat D50 Given today GI: No Acute Issues Renal: A: Hypocalcemia Received Calcium Gluconate in ED. Heme/Onc: A: Normocytic Anemia 1 Unit of PRBC Today ID A: Code Sepsis Febrile (Resolved) Elevated Lactate (Resolved) Blood Cultures - PENDING Urine Cultures - NEGATIVE Wound Cultures - PENDING MRSA 2gm Cefepime given in ED Cont. Zosyn and Vanc. ProCal - 9.6 Integumentary A: Left Lower ext wounds Wound Care. Proph Protonix Lovenox Diet: Tube Feeding - Jevity 1.5 Patient discussed with ICU Attending Niraj Negrete, PGY-1 <Behzad Loomis M - Last Filed: 08/26/17 18:23> CCU Objective - Vital Signs / Intake & Output Vital Signs (Last 4 hours): Vital Signs Temp Pulse Resp BP Pulse Ox 08/26/17 18:16 97.8 F 84 22 99/58 L 08/26/17 18:12 86 21 98 08/26/17 18:00 97.9 F 85 24 99/58 L 99 08/26/17 17:00 97.8 F 84 21 87/50 L 98 08/26/17 16:03 97.8 F 81 22 90/53 L 08/26/17 16:00 97.8 F 83 23 90/52 L 100 08/26/17 15:23 97.8 F 84 21 90/50 L 08/26/17 15:00 86 25 H 106/62 99 08/26/17 14:53 98.8 F 81 22 114/68 08/26/17 14:38 98.7 F 82 21 115/69 08/26/17 14:27 83 25 H 99/58 L 100 08/26/17 14:23 98.7 F 83 22 99/58 L Intake and Output (Last 8hrs): Intake & Output 08/26/17 08/26/17 08/26/17 06:59 14:59 22:59 Intake Total 1360 1200 637 Output Total 410 245 135 Balance 950 955 502 Weight 126 lb Intake: Intake, IV Amount 1000 900 Left Distal Port Internal 1000 900 Jugular Tube Feeding 360 200 160 Blood Product 0 277 Apheresis Rbc Cp2d As3 Lr 0 277 1st Unit [id number] Other 100 200 Apheresis Rbc Cp2d As3 Lr 100 1st Unit [id number] Output: Urine 410 245 135 Urethral (Brown) 410 245 135 - Medications Active Medications: Active Medications Generic Name Dose Route Start Last Admin Trade Name Freq PRN Reason Stop Dose Admin Acetaminophen 650 mg 08/25/17 17:20 Tylenol 650 Mg Supp NH Q4 PRN Fever >100.4 F Carbamazepine 100 mg 08/24/17 22:00 08/26/17 13:11 Tegretol PEG 100 mg Q8 AMY Administration Enoxaparin Sodium 40 mg 08/24/17 18:00 08/26/17 09:14 Lovenox SC 40 mg DAILY AMY Administration Vancomycin/Sodium Chloride 1 gm in 200 mls @ 133 mls/hr 08/24/17 19:30 06:50 Vancomycin 1 Gm/Ns 200 Ml IVPB 08/29/17 19:31 133 mls/hr Q12H AMY Administration Protocol Piperacillin Sod/Tazobactam 100 mls @ 100 mls/hr 08/24/17 18:00 08/26/17 17: 32 Sod 3.375 gm/ Sodium Chloride IVPB 100 mls/hr Q8H AMY Administration Protocol Pantoprazole Sodium 40 mg 08/27/17 10:00 Protonix Inj IVP DAILY AMY Rosuvastatin Calcium 5 mg 08/24/17 22:00 08/25/17 21:38 Crestor PO 5 mg HS AMY Administration Valproate Sodium 250 mg 08/24/17 18:00 08/26/17 17:33 Depakene Oral Soln PEG 250 mg QID AMY Administration - Patient Studies Lab Studies: Microbiology Studies 08/24/17 13:31 Blood Culture - Preliminary Blood NO GROWTH AFTER 48 HOURS 08/24/17 13:31 Blood Culture - Preliminary Blood NO GROWTH AFTER 48 HOURS 08/24/17 17:51 MRSA Culture (Admit) - Final Nose MRSA NOT DETECTED 08/25/17 14:28 Gram Stain - Final Ankle - Left Lab Studies 08/26/17 08/26/17 08/26/17 Range/Units 12:40 06:28 06:28 WBC (4.8-10.8) K/uL RBC (4.40-5.90) Mil/uL Hgb (12.0-18.0) g/dL Hct (35.0-51.0) % MCV (80.0-94.0) fL MCH (27.0-31.0) pg MCHC (33.0-37.0) g/dL RDW (11.5-14.5) % Plt Count (130-400) K/uL MPV (7.2-11.7) fL Neut % (Auto) (50.0-75.0) % Lymph % (Auto) (20.0-40.0) % [place] % (Auto) (0.0-10.0) % Eos % (Auto) (0.0-4.0) % Baso % (Auto) (0.0-2.0) % Neut # (Auto) (1.8-7.0) K/uL Lymph # (Auto) (1.0-4.3) K/uL [place] # (Auto) (0.0-0.8) K/uL Eos # (Auto) (0.0-0.7) K/uL Baso # (Auto) (0.0-0.2) K/uL PT (9.7-12.2) SECONDS INR APTT (21-34) SECONDS Puncture Site pCO2 (35-45) mm/Hg pO2 (80-100) mm/Hg HCO3 (21-28) mmol/L ABG pH (7.35-7.45) ABG Total CO2 (22-28) mmol/L ABG O2 Saturation (95-98) % ABG Base Excess (-2.0-3.0) mmol/L Collin Test ABG Potassium (3.6-5.2) mmol/L A-a O2 Difference mm/Hg Respiratory Index Sodium 141 (132-148) mmol/l Chloride 111 H (98-107) mmol/L Glucose (75-110) mg/dl Lactate (0.7-2.1) mmol/L Vent Mode Mechanical Rate FiO2 % Tidal Volume PEEP Crit Value Called To Crit Value Called By Crit Value Read Back Blood Gas Notified Time Potassium 2.9 L (3.6-5.2) mmol/L Carbon Dioxide 21 L (22-30) mmol/L Anion Gap 12 (10-20) BUN 16 (9-20) mg/dL Creatinine 0.7 L (0.8-1.5) mg/dL Est GFR ( Amer) > 60 Est GFR (Non-Af Amer) > 60 Random Glucose 123 H (75-110) mg/dL Calcium 7.0 L (8.6-10.4) mg/dl Total Bilirubin 0.5 (0.2-1.3) mg/dL AST 35 (17-59) U/L ALT < 6 L (21-72) U/L Alkaline Phosphatase 60 (38-126) U/L Total Protein 5.8 L (6.3-8.3) g/dL Albumin 2.1 L (3.5-5.0) g/dL Globulin 3.7 (2.2-3.9) gm/dL Albumin/Globulin Ratio 0.5 L (1.0-2.1) Procalcitonin 11.81 H (0.19-0.49) NG/ML Arterial Blood Potassium (3.6-5.2) mmol/L Blood Type O POSITIVE Antibody Screen Negative 08/26/17 08/26/17 08/26/17 Range/Units 06:28 06:28 05:17 WBC 9.2 (4.8-10.8) K/uL RBC 2.61 L (4.40-5.90) Mil/uL Hgb 7.4 L D (12.0-18.0) g/dL Hct 22.2 L (35.0-51.0) % MCV 85.3 (80.0-94.0) fL MCH 28.3 (27.0-31.0) pg MCHC 33.2 (33.0-37.0) g/dL RDW 16.5 H (11.5-14.5) % Plt Count 218 (130-400) K/uL MPV 8.4 (7.2-11.7) fL Neut % (Auto) 79.2 H (50.0-75.0) % Lymph % (Auto) 10.0 L (20.0-40.0) % [place] % (Auto) 10.1 H (0.0-10.0) % Eos % (Auto) 0.4 (0.0-4.0) % Baso % (Auto) 0.3 (0.0-2.0) % Neut # (Auto) 7.3 H (1.8-7.0) K/uL Lymph # (Auto) 0.9 L (1.0-4.3) K/uL [place] # (Auto) 0.9 H (0.0-0.8) K/uL Eos # (Auto) 0.0 (0.0-0.7) K/uL Baso # (Auto) 0.0 (0.0-0.2) K/uL PT 18.7 H (9.7-12.2) SECONDS INR 1.7 APTT 38 H (21-34) SECONDS Puncture Site Rb pCO2 26 L (35-45) mm/Hg pO2 182 H (80-100) mm/Hg HCO3 20.3 L (21-28) mmol/L ABG pH 7.42 (7.35-7.45) ABG Total CO2 17.7 L (22-28) mmol/L ABG O2 Saturation 100.3 H (95-98) % ABG Base Excess -6.0 L (-2.0-3.0) mmol/L Collin Test Na ABG Potassium 2.4 L* (3.6-5.2) mmol/L A-a O2 Difference 213.0 mm/Hg Respiratory Index 1.2 Sodium 143.0 (132-148) mmol/l Chloride 117.0 H (98-107) mmol/L Glucose 124 H (75-110) mg/dl Lactate 1.6 (0.7-2.1) mmol/L Vent Mode Prvc Mechanical Rate 14 FiO2 60.0 % Tidal Volume 450 PEEP 5 Crit Value Called To Krupa rn Crit Value Called By Mary office assistance Crit Value Read Back Y Blood Gas Notified Time 542 Potassium (3.6-5.2) mmol/L Carbon Dioxide (22-30) mmol/L Anion Gap (10-20) BUN (9-20) mg/dL Creatinine (0.8-1.5) mg/dL Est GFR ( Amer) Est GFR (Non-Af Amer) Random Glucose (75-110) mg/dL Calcium (8.6-10.4) mg/dl Total Bilirubin (0.2-1.3) mg/dL AST (17-59) U/L ALT (21-72) U/L Alkaline Phosphatase (38-126) U/L Total Protein (6.3-8.3) g/dL Albumin (3.5-5.0) g/dL Globulin (2.2-3.9) gm/dL Albumin/Globulin Ratio (1.0-2.1) Procalcitonin (0.19-0.49) NG/ML Arterial Blood Potassium 2.4 L* (3.6-5.2) mmol/L Blood Type Antibody Screen Laboratory Results - last 24 hr 08/26/17 08/26/1708/26/18 05:17 06:28 06:28 WBC 9.2 RBC 2.61 L Hgb 7.4 L D Hct 22.2 L MCV 85.3 MCH 28.3 MCHC 33.2 RDW 16.5 H Plt Count 218 MPV 8.4 Neut % (Auto) 79.2 H Lymph % (Auto) 10.0 L [place] % (Auto) 10.1 H Eos % (Auto) 0.4 Baso % (Auto) 0.3 Neut # (Auto) 7.3 H Lymph # (Auto) 0.9 L [place] # (Auto) 0.9 H Eos # (Auto) 0.0 Baso # (Auto) 0.0 PT 18.7 H INR 1.7 APTT 38 H Puncture Site Rb pCO2 26 L pO2 182 H HCO3 20.3 L ABG pH 7.42 ABG Total CO2 17.7 L ABG O2 Saturation 100.3 H ABG Base Excess -6.0 L Collin Test Na ABG Potassium 2.4 L* A-a O2 Difference 213.0 Respiratory Index 1.2 Sodium 143.0 Chloride 117.0 H Glucose 124 H Lactate 1.6 Vent Mode Prvc Mechanical Rate 14 FiO2 60.0 Tidal Volume 450 PEEP 5 Crit Value Called To Krupa rn Crit Value Called By Mary office assistance Crit Value Read Back Y Blood Gas Notified Time 542 Potassium Carbon Dioxide Anion Gap BUN Creatinine Est GFR ( Amer) Est GFR (Non-Af Amer) Random Glucose Calcium Total Bilirubin AST ALT Alkaline Phosphatase Total Protein Albumin Globulin Albumin/Globulin Ratio Procalcitonin Arterial Blood Potassium 2.4 L* Blood Type Antibody Screen 08/26/17 08/26/17 08/26/17 06:28 06:28 12:40 WBC RBC Hgb Hct MCV MCH MCHC RDW Plt Count MPV Neut % (Auto) Lymph % (Auto) [place] % (Auto) Eos % (Auto) Baso % (Auto) Neut # (Auto) Lymph # (Auto) [place] # (Auto) Eos # (Auto) Baso # (Auto) PT INR APTT Puncture Site pCO2 pO2 HCO3 ABG pH ABG Total CO2 ABG O2 Saturation ABG Base Excess Collin Test ABG Potassium A-a O2 Difference Respiratory Index Sodium 141 Chloride 111 H Glucose Lactate Vent Mode Mechanical Rate FiO2 Tidal Volume PEEP Crit Value Called To Crit Value Called By Crit Value Read Back Blood Gas Notified Time Potassium 2.9 L Carbon Dioxide 21 L Anion Gap 12 BUN 16 Creatinine 0.7 L Est GFR ( Amer) > 60 Est GFR (Non-Af Amer) > 60 Random Glucose 123 H Calcium 7.0 L Total Bilirubin 0.5 AST 35 ALT < 6 L Alkaline Phosphatase 60 Total Protein 5.8 L Albumin 2.1 L Globulin 3.7 Albumin/Globulin Ratio 0.5 L Procalcitonin 11.81 H Arterial Blood Potassium Blood Type O POSITIVE Antibody Screen Negative Attending/Attestation - Attestation I have personally seen and examined this patient.: Yes I have fully participated in the care of the patient.: Yes I have reviewed all pertinent clinical information: Yes Notes (Text): 08/26/17 18:21 Today: , August 26, 2017 The Patient was seen and examined at the bedside, Medical records reviewed, and management issues were discussed and formulated with the house staff. I have reviewed all the relevant clinical, laboratory, hemodynamic, radiographic data and medications Events reviewed Pain issues, skin care, head of the bed elevation, glycemic control were addressed. Agree with above resident's assessment and treatment plans of care as transcribed in Dr. Lara note. Patient did not tolerate vent weaning trial today Continue current management, medications reviewed, avoid all sedative.
[2017-08-27] MEDS: Piperacillin/Tazobact 3.375 GM in Sodium Chloride 100 ML IVPB SCH ×4 (03:54→22:41)
[2017-08-27] MEDS: carBAMazepine Chew Tab 100 MG Chew Tab PEG SCH ×3 (05:07→22:41)
--- NOTE | 2017-08-27 05:51 | CP.PCM.PN ---
Subjective - Date & Time of Evaluation Date of Evaluation: 08/26/17 Time of Evaluation: 18:00 - Subjective Subjective: Patient seen and examined at bedside. Currently on Mechanical Ventilation. Objective - Vital Signs/Intake and Output Vital Signs (last 24 hours): Temp Pulse Resp BP Pulse Ox 98 F 91 H 13 101/58 L 96 08/27/17 04:00 08/27/17 05:00 08/27/17 05:00 08/27/17 04:53 08/27/17 05:00 Intake and Output: 08/26/17 08/27/17 18:59 06:59 Intake Total 1837 630 Output Total 380 460 Balance 1457 170 - Medications Medications: Current Medications Acetaminophen (Tylenol 650 Mg Supp) 650 mg RI Q4 PRN PRN Reason: Fever >100.4 F Carbamazepine (Tegretol) 100 mg PEG Q8 [facility] [place] Last Admin: 08/27/17 05:07 Dose: 100 mg Enoxaparin Sodium (Lovenox) 40 mg SC DAILY [facility] [place] Last Admin: 08/26/17 09:14 Dose: 40 mg Vancomycin/Sodium Chloride (Vancomycin 1 Gm/Ns 200 Ml) 1 gm in 200 mls @ 133 mls/hr IVPB Q12H AMY PRN Reason: Protocol Stop: 08/29/17 19:31 Last Admin: 08/26/17 18:42 Dose: 133 mls/hr Piperacillin Sod/Tazobactam (Sod 3.375 gm/ Sodium Chloride) 100 mls @ 100 mls/ hr IVPB Q8H AMY PRN Reason: Protocol Last Admin: 08/27/17 03:54 Dose: 100 mls/hr Azithromycin 500 mg/ Sodium (Chloride) 250 mls @ 250 mls/hr IVPB DAILY AMY PRN Reason: Protocol Pantoprazole Sodium (Protonix Inj) 40 mg IVP DAILY [facility] Rosuvastatin Calcium (Crestor) 5 mg PO HS [facility] [place] Last Admin: 08/26/17 21:01 Dose: 5 mg Valproate Sodium (Depakene Oral Soln) 250 mg PEG QID [facility] [place] Last Admin: 08/26/17 21:01 Dose: 250 mg - Labs Labs: 08/26/17 06:28 08/26/17 06:28 PT 18.7 SECONDS (9.7-12.2) H 08/26/17 06:28 INR 1.7 08/26/17 06:28 APTT 38 SECONDS (21-34) H 08/26/17 06:28 Assessment and Plan (1) Sepsis Status: Acute (2) Fever Status: Acute (3) Seizure disorder Status: Acute (4) COPD (chronic obstructive pulmonary disease) Status: Chronic (5) PVD (peripheral vascular disease) Status: Chronic (6) Respiratory failure Status: Acute
--- NOTE | 2017-08-27 06:10 | CON ---
DATE:08/26/2017 INFECTIOUS DISEASE CONSULT REQUESTED BY: Dr. Ann. HISTORY OF PRESENT ILLNESS: This patient is a 77-year-old male. He was recently here as I see he was admitted here. His last visit was from 07/29/2017 to 08/19/2017 when he was admitted with hyperthermia, sepsis and renal insufficiency which is the reason written. He comes back now from the group home with history of arthritis, COPD, severe dementia, hypertension, pneumonia, seizures. He has a right AKA and history of TIA. He came back again with fevers and was started on antibiotics and I am asked to evaluate. He was asked called late last night, came to see here. He is intubated at present time. He is getting blood. He is not able to give any history. Most of the history is taken from the chart. PAST MEDICAL HISTORY: As above. He has a history of asthma, arthritis, dementia, hypertension, pneumonia, TIA, seizures, right AKA, has ulcerations on the left leg and on the left knee, sepsis recently, and he is smoking. ROS: unable to obtain Cardiac lo, he has hypertension, history of asthma, COPD, pneumonia that all we know of. He has a right eyelid droop. He has had previous TIA. He has history of anemia. He has multiple wounds on his back on the knee and on the left heel. SOCIAL HISTORY: Unknown. ALLERGIES: HE IS NOT ALLERGIC TO ANY MEDICINES. MEDICATIONS: His medications that he is getting are Tylenol, carbamazepine, Lovenox, pantoprazole, piperacillin, tazobactam and he is on rosuvastatin, valproic acid and vancomycin 1 g every 12 hours. He was getting blood as he has dropped his hemoglobin. He is on vancomycin and Zosyn. PHYSICAL EXAMINATION: VITAL SIGNS: Since he has been on antibiotics, he is afebrile. His last temp was today, T-max was 98.7 and pulse is 83, blood pressure still remains on the low side 99/58, respirations are 22. He remains on the ventilator. GENERAL: He is sedated. I think he is lethargic. HEENT: Head is atraumatic, normocephalic. He is intubated. NECK: Supple. LUNGS: Decreased breath sounds bilaterally. HEART: S1 and S2 is regular. No murmurs appreciated. ABDOMEN: Soft, nontender. No guarding, no rigidity present. EXTREMITIES: Right AKA present. Left leg is unremarkable, but has ulceration. Left knee has abrasion, does not appear to the deep. On the lateral malleolus, he has open wound. I was not able to see the back as he was getting blood transfusion today. LABORATORY DATA AND IMAGING STUDIES: White count was 9.2, hemoglobin 7.4, hematocrit 22.2, platelet count is 218. INR is 1.7. He has ABG done. He came with a hemoglobin of 11.2 and then it dropped to 9.4 to 7.4. UA showed rbc 5, wbc 5, which was unremarkable. Chemistry shows potassium is 2.9, sodium 141, CO2 is 21, BUN is 16, creatinine 0.7, and procalcitonin level is 11.81. He is septic and cultures were done and wound culture is growing gram-positive cocci, this is from the left ankle. Blood cultures I noted and then we will order sputum culture as he is intubated and also his chest x-ray which was done on 08/26/2017 shows postsurgical changes in the right lung apex with low lung volume as the right as well as shift of trachea and mediastinum to the right, persistent cystic lucencies noted in the right apex and more focal consolidative changes seen in the right suprahilar region. Blunted left CP angle touches degenerative changes in the spine, no significant change. ASSESSMENT AND PLAN: So, most likely he has had a surgery in the right apex and trachea and mediastinum is shifted to the right and has persistent cystic lesion in the right apex. Since he came with fevers and has high procalcitonin level, it may be worthwhile to get CAT scans of the abdomen and pelvis and the chest to rule out the etiology of these persistent fevers and sputum culture was already sent yesterday, so we will follow that and we will look into since he was recently or if they have done CAT scans on the last admission, we can follow those. I have to look up in the previous admission and we will do so. We will continue antibiotics at this time and we will follow him in a.m. He is septic because procalcitonin is high, came in with fevers, has acute respiratory failure. He is severely anemic, dropping hemoglobin, although he is losing blood somewhere. He has multiple decubiti that could be the source and something is going on in the lung to pull the trachea to the right or rather this is acute needs to be determined. Bladimir Muñoz MD [facility]
[2017-08-27 06:19] LABS: BASO % 0.2 % (0.0-2.0); EOS # 0.1 K/uL (0.0-0.7); EOS % 0.6 % (0.0-4.0); HEMOGLOBIN 8.8 g/dL (12.0-18.0); LYMPH # 0.9 K/uL (1.0-4.3); LYMPH % 9.6 % (20.0-40.0); MEAN CELL VOLUME 84.6 fL (80.0-94.0); MEAN CORPUSCULAR HEMOGLOBIN 28.4 pg (27.0-31.0); MEAN CORPUSCULAR HGB CONC 33.6 g/dL (33.0-37.0); MEAN PLATELET VOLUME 8.3 fL (7.2-11.7); MONO # 0.9 K/uL (0.0-0.8); MONO % 10.1 % (0.0-10.0); NEUT # 7.3 K/uL (1.8-7.0); NEUT % 79.5 % (50.0-75.0); NRBC % 0.1 % (0.0-2.0); PLATELET COUNT 226 K/uL (130-400); RBC 3.09 Mil/uL (4.40-5.90); RED CELL DISTRIBUTION WIDTH 16.4 % (11.5-14.5); WHITE BLOOD COUNT 9.2 K/uL (4.8-10.8)
[2017-08-27 06:20] LABS: ABG ALLEN TEST POS; ARTERIAL BLOOD GAS HCO3 19.8 mmol/L (21-28); ARTERIAL BLOOD GAS HEMOGLOBIN 8.5 g/dL (11.7-17.4); ARTERIAL BLOOD GAS O2 SAT 99.6 % (95-98); ARTERIAL BLOOD GAS PCO2 27 mm/Hg (35-45); ARTERIAL BLOOD GAS PH 7.41 (7.35-7.45); ARTERIAL BLOOD GAS PO2 115 mm/Hg (80-100); ARTERIAL BLOOD GAS TCO2 17.9 mmol/L (22-28)
[2017-08-27 06:21] LABS: INR 1.4; PROTHROMBIN TIME 14.9 SECONDS (9.7-12.2)
[2017-08-27 06:40] LABS: ALB/GLOB RATIO 0.6 (1.0-2.1); ALBUMIN 2.3 g/dL (3.5-5.0); ALT/SGPT 13 U/L (21-72); AST/SGOT 56 U/L (17-59); BLOOD UREA NITROGEN 13 mg/dL (9-20); CALCIUM 6.7 mg/dl (8.6-10.4); GFR AFRICAN-AMERICAN > 60; GFR NON-AFRICAN AMERICAN > 60
[2017-08-27] MEDS: Vancomycin 1 gm/NS 200 ml 1 GM/200 ML BAG IVPB SCH ×2 (06:58→19:36)
[2017-08-27 08:26] LABS: ANISOCYTOSIS SLIGHT; BANDS 2 % (0-2); HYPOCHROMIC SLIGHT; LYMPHOCYTE 9 % (20-40); MONOCYTE 7 % (0-10); NEUTROPHIL 82 % (50-75); PLATELET ESTIMATE NORMAL (NORMAL); TOTAL CELLS COUNTED 100
[2017-08-27 08:27] LABS: POLYCHROMIC SLIGHT
--- NOTE | 2017-08-27 08:34 | RAD ---
Chest x-ray single frontal view History: Follow-up. Comparison: 08/26/2017 Findings: Again seen are postsurgical changes in the right lung apex with low lung volumes on the right as well as shift of the trachea and mediastinum to the right. Persistent cystic lucencies noted at the right lung apex with more focal consolidative changes seen within the right suprahilar region as well as the bilateral lung bases. Small bilateral pleural effusions. Tortuous aorta. Degenerative changes in the spine and shoulders. Productive change at the level of the right proximal humerus. Deformity of the distal right clavicle and AC joint space. Lines and tubes in stable position. Impression: No significant interval change.
[2017-08-27] MEDS ORDERED: Potassium Phosphate 15 MMOLE in Sodium Chloride 0.9% 250 ML IVPB ONE (09:00)
[2017-08-27] MEDS ORDERED: Magnesium Sulfate 1 gm in D5W 1 GM/100 ML BAG IVPB ONE (10:00)
[2017-08-27] MEDS: Valproic Acid 250 mg/5 ml UD Cup PEG SCH ×4 (10:46→22:41)
[2017-08-27] MEDS: Enoxaparin 40 mg Syringe SC SCH (10:46)
--- NOTE | 2017-08-27 11:18 | CP.PCM.PN ---
Subjective - Date & Time of Evaluation Date of Evaluation: 08/27/17 Time of Evaluation: 09:10 - Subjective Subjective: The patient seen and examined Remains intubated tolerating CPAP Status post transfusion of packed RBCs Thick secretions through ET tube Afebrile Objective - Vital Signs/Intake and Output Vital Signs (last 24 hours): Temp Pulse Resp BP Pulse Ox 98 F 92 H 25 H 108/56 L 98 08/27/17 04:00 08/27/17 06:00 08/27/17 06:00 08/27/17 05:52 08/27/17 06:00 Intake and Output: 08/27/17 08/27/17 06:59 18:59 Intake Total 1010 715 Output Total 560 250 Balance 450 465 - Medications Medications: Current Medications Acetaminophen (Tylenol 650 Mg Supp) 650 mg MI Q4 PRN PRN Reason: Fever >100.4 F Carbamazepine (Tegretol) 100 mg PEG Q8 [facility] Last Admin: 08/27/17 05:07 Dose: 100 mg Enoxaparin Sodium (Lovenox) 40 mg SC DAILY [facility] Last Admin: 08/27/17 10:46 Dose: 40 mg Vancomycin/Sodium Chloride (Vancomycin 1 Gm/Ns 200 Ml) 1 gm in 200 mls @ 133 mls/hr IVPB Q12H AMY PRN Reason: Protocol Stop: 08/29/17 19:31 Last Admin: 08/27/17 06:58 Dose: 133 mls/hr Azithromycin 500 mg/ Sodium (Chloride) 250 mls @ 250 mls/hr IVPB DAILY [facility] PRN Reason: Protocol Potassium Phosphate 15 mmole/ (Sodium Chloride) 255 mls @ 42.5 mls/hr IVPB ONCE ONE Stop: 08/27/17 14:59 Last Admin: 08/27/17 10:43 Dose: 42.5 mls/hr Piperacillin Sod/Tazobactam (Sod 3.375 gm/ Sodium Chloride) 100 mls @ 100 mls/ hr IVPB Q6H AMY PRN Reason: Protocol Pantoprazole Sodium (Protonix Inj) 40 mg IVP DAILY [facility] Last Admin: 08/27/17 10:46 Dose: 40 mg Rosuvastatin Calcium (Crestor) 5 mg PO HS [facility] Last Admin: 08/26/17 21:01 Dose: 5 mg Valproate Sodium (Depakene Oral Soln) 250 mg PEG QID [facility] Last Admin: 08/27/17 10:46 Dose: 250 mg - Labs Labs: 08/27/17 05:53 08/27/17 05:55 PT 14.9 SECONDS (9.7-12.2) H 08/27/17 05:53 INR 1.4 08/27/17 05:53 APTT 31 SECONDS (21-34) D 08/27/17 05:53 - Head Exam Head Exam: ATRAUMATIC, NORMOCEPHALIC - ENT Exam ENT Exam: Mucous Membranes Moist - Neck Exam Neck Exam: Normal Inspection - Respiratory Exam Respiratory Exam: Decreased Breath Sounds - Cardiovascular Exam Cardiovascular Exam: REGULAR RHYTHM - GI/Abdominal Exam GI & Abdominal Exam: Soft, Normal Bowel Sounds Assessment and Plan (1) Respiratory failure Assessment & Plan: Continue IV antibiotics wean as tolerated peg feeding Status: Acute (2) Anemia Status: Acute (3) Pneumonia Status: Acute
[2017-08-27] MEDS: Azithromycin 500 MG in Sodium Chloride 0.9% 250 ML IVPB SCH (13:58)
--- NOTE | 2017-08-27 14:05 | CP.CCUPN ---
"<Niraj Negrete - Last Filed: 08/27/17 13:41> CCU Subjective - Physician Review Subjective (Free Text): Patient seen and examined at bedside. Currently on Mechanical Ventilation. Clincally the same as yesterday. CCU Objective - Vital Signs / Intake & Output Vital Signs (Last 4 hours): Vital Signs Temp Pulse Resp BP Pulse Ox 08/27/17 13:00 92 H 26 H 99 08/27/17 12:52 90 28 H 104/59 L 99 08/27/17 12:00 98.6 F 101 H 41 H 100 08/27/17 11:53 97 H 35 H 109/65 100 08/27/17 11:00 91 H 20 100 08/27/17 10:52 91 H 22 91/51 L 08/27/17 10:00 94 H 31 H 96 08/27/17 09:53 95 H 29 H 94/54 L 96 Intake and Output (Last 8hrs): Intake & Output 08/26/17 08/27/17 08/27/17 22:59 06:59 14:59 Intake Total 887 760 795 Output Total 295 400 250 Balance 592 360 545 Weight 125 lb Intake: Intake, IV Amount 350 505 Left Distal Port Internal 350 505 Jugular Oral 50 Tube Feeding 320 360 240 Blood Product 277 Apheresis Rbc Cp2d As3 Lr 277 1st Unit [id number] Other 290 50 Apheresis Rbc Cp2d As3 Lr 100 1st Unit [id number] Output: Urine 295 400 250 Urethral (Garcia) 295 400 250 Urine, Voided 0 Other: # Bowel Movements 1 - Physical Exam Head: Positive for: Atraumatic, Normocephalic Pupils: Positive for: PERRL Mouth: Negative for: Moist Mucous Membranes Respiratory/Chest: Positive for: Rales (B/L ), Other (Intubated). Negative for : Clear to Auscultation Cardiovascular: Positive for: Normal S1, S2. Negative for: Tachycardic Abdomen: Positive for: Normal Bowel Sounds. Negative for: Distention Neurological: Negative for: GCS=15 (10T) Psychiatric: Negative for: Alert - Medications Active Medications: Active Medications Generic Name Dose Route Start Last Admin Trade Name Freq PRN Reason Stop Dose Admin Acetaminophen 650 mg 08/25/17 17:20 Tylenol 650 Mg Supp MD Q4 PRN Fever >100.4 F Carbamazepine 100 mg 08/24/17 22:00 08/27/17 05:07 Tegretol PEG 100 mg Q8 AMY Administration Enoxaparin Sodium 40 mg 08/24/17 18:00 08/27/17 10:46 Lovenox SC 40 mg DAILY AMY Administration Vancomycin/Sodium Chloride 1 gm in 200 mls @ 133 mls/hr 08/24/17 19:30 06:58 Vancomycin 1 Gm/Ns 200 Ml IVPB 08/29/17 19:31 133 mls/hr Q12H AMY Administration Protocol Azithromycin 500 mg/ Sodium 250 mls @ 250 mls/hr 08/27/17 10:00 Chloride IVPB DAILY [facility] Protocol Potassium Phosphate 15 mmole/ 255 mls @ 42.5 mls/hr 08/27/17 09:00 08/27/17 10:43 Sodium Chloride IVPB 08/27/17 14:59 42.5 mls/hr ONCE ONE Administration Piperacillin Sod/Tazobactam 100 mls @ 100 mls/hr 08/27/17 11:00 Sod 3.375 gm/ Sodium Chloride IVPB Q6H [facility] Protocol Pantoprazole Sodium 40 mg 08/27/17 10:00 08/27/17 10:46 Protonix Inj IVP 40 mg DAILY AMY Administration Rosuvastatin Calcium 5 mg 08/24/17 22:00 08/26/17 21:01 Crestor PO 5 mg HS AMY Administration Valproate Sodium 250 mg 08/24/17 18:00 08/27/17 10:46 Depakene Oral Soln PEG 250 mg QID AMY Administration - Patient Studies Lab Studies: Microbiology Studies 08/24/17 13:31 Blood Culture - Preliminary Blood NO GROWTH AFTER 3 DAYS 08/24/17 13:31 Blood Culture - Preliminary Blood NO GROWTH AFTER 3 DAYS 08/25/17 14:28 Gram Stain - Final Ankle - Left Wound Culture - Final Coagulase Neg Staphylococcus Lab Studies 08/27/17 08/27/17 08/27/17 Range/Units 11:32 11:32 11:16 WBC (4.8-10.8) K/uL RBC (4.40-5.90) Mil/uL Hgb (12.0-18.0) g/dL Hct (35.0-51.0) % MCV (80.0-94.0) fL MCH (27.0-31.0) pg MCHC (33.0-37.0) g/dL RDW (11.5-14.5) % Plt Count (130-400) K/uL MPV (7.2-11.7) fL Neut % (Auto) (50.0-75.0) % Lymph % (Auto) (20.0-40.0) % Rawlins % (Auto) (0.0-10.0) % Eos % (Auto) (0.0-4.0) % Baso % (Auto) (0.0-2.0) % Neut # (Auto) (1.8-7.0) K/uL Lymph # (Auto) (1.0-4.3) K/uL Rawlins # (Auto) (0.0-0.8) K/uL Eos # (Auto) (0.0-0.7) K/uL Baso # (Auto) (0.0-0.2) K/uL Neutrophils % (Manual) (50-75) % Band Neutrophils % (0-2) % Lymphocytes % (Manual) (20-40) % Monocytes % (Manual) (0-10) % Platelet Estimate (NORMAL) Polychromasia Hypochromasia (manual) Anisocytosis (manual) PT (9.7-12.2) SECONDS INR APTT (21-34) SECONDS Puncture Site pCO2 (35-45) mm/Hg pO2 (80-100) mm/Hg HCO3 (21-28) mmol/L ABG pH (7.35-7.45) ABG Total CO2 (22-28) mmol/L ABG O2 Saturation (95-98) % ABG Base Excess (-2.0-3.0) mmol/L ABG Hemoglobin (11.7-17.4) g/dL ABG Carboxyhemoglobin (0.5-1.5) % POC ABG HHb (Measured) (0.0-5.0) % ABG Methemoglobin (0.0-3.0) % Collin Test A-a O2 Difference mm/Hg Respiratory Index Hgb O2 Saturation (95.0-98.0) % Vent Mode Mechanical Rate FiO2 % Tidal Volume PEEP Sodium (132-148) mmol/L Potassium (3.6-5.2) mmol/L Chloride (98-107) mmol/L Carbon Dioxide (22-30) mmol/L Anion Gap (10-20) BUN (9-20) mg/dL Creatinine (0.8-1.5) mg/dL Est GFR ( Amer) Est GFR (Non-Af Amer) POC Glucose (mg/dL) 116 H (65-110) mg/dL Random Glucose (75-110) mg/dL Calcium (8.6-10.4) mg/dl Phosphorus (2.5-4.5) mg/dL Magnesium (1.6-2.3) mg/dL Total Bilirubin (0.2-1.3) mg/dL AST (17-59) U/L ALT (21-72) U/L Alkaline Phosphatase (38-126) U/L Ammonia 11 (9-33) umol/L Total Protein (6.3-8.3) g/dL Albumin (3.5-5.0) g/dL Globulin (2.2-3.9) gm/dL Albumin/Globulin Ratio (1.0-2.1) Valproic Acid 46.4 L (50.0-100.0) ug/mL Mycoplasma pneumon IgM (NEGATIVE) Blood Type Antibody Screen 08/27/17 08/27/17 08/27/17 Range/Units 05:55 05:55 05:53 WBC (4.8-10.8) K/uL RBC (4.40-5.90) Mil/uL Hgb (12.0-18.0) g/dL Hct (35.0-51.0) % MCV (80.0-94.0) fL MCH (27.0-31.0) pg MCHC (33.0-37.0) g/dL RDW (11.5-14.5) % Plt Count (130-400) K/uL MPV (7.2-11.7) fL Neut % (Auto) (50.0-75.0) % Lymph % (Auto) (20.0-40.0) % Rawlins % (Auto) (0.0-10.0) % Eos % (Auto) (0.0-4.0) % Baso % (Auto) (0.0-2.0) % Neut # (Auto) (1.8-7.0) K/uL Lymph # (Auto) (1.0-4.3) K/uL Rawlins # (Auto) (0.0-0.8) K/uL Eos # (Auto) (0.0-0.7) K/uL Baso # (Auto) (0.0-0.2) K/uL Neutrophils % (Manual) (50-75) % Band Neutrophils % (0-2) % Lymphocytes % (Manual) (20-40) % Monocytes % (Manual) (0-10) % Platelet Estimate (NORMAL) Polychromasia Hypochromasia (manual) Anisocytosis (manual) PT 14.9 H (9.7-12.2) SECONDS INR 1.4 APTT 31 D (21-34) SECONDS Puncture Site pCO2 (35-45) mm/Hg pO2 (80-100) mm/Hg HCO3 (21-28) mmol/L ABG pH (7.35-7.45) ABG Total CO2 (22-28) mmol/L ABG O2 Saturation (95-98) % ABG Base Excess (-2.0-3.0) mmol/L ABG Hemoglobin (11.7-17.4) g/dL ABG Carboxyhemoglobin (0.5-1.5) % POC ABG HHb (Measured) (0.0-5.0) % ABG Methemoglobin (0.0-3.0) % Collin Test A-a O2 Difference mm/Hg Respiratory Index Hgb O2 Saturation (95.0-98.0) % Vent Mode Mechanical Rate FiO2 % Tidal Volume PEEP Sodium 142 (132-148) mmol/L Potassium 3.4 L (3.6-5.2) mmol/L Chloride 114 H (98-107) mmol/L Carbon Dioxide 19 L (22-30) mmol/L Anion Gap 13 (10-20) BUN 13 (9-20) mg/dL Creatinine 0.6 L (0.8-1.5) mg/dL Est GFR ( Amer) > 60 Est GFR (Non-Af Amer) > 60 POC Glucose (mg/dL) (65-110) mg/dL Random Glucose 97 (75-110) mg/dL Calcium 6.7 L (8.6-10.4) mg/dl Phosphorus 1.7 L (2.5-4.5) mg/dL Magnesium 2.0 (1.6-2.3) mg/dL Total Bilirubin 0.8 (0.2-1.3) mg/dL AST 56 (17-59) U/L ALT 13 L D (21-72) U/L Alkaline Phosphatase 116 (38-126) U/L Ammonia (9-33) umol/L Total Protein 6.1 L (6.3-8.3) g/dL Albumin 2.3 L (3.5-5.0) g/dL Globulin 3.8 (2.2-3.9) gm/dL Albumin/Globulin Ratio 0.6 L (1.0-2.1) Valproic Acid (50.0-100.0) ug/mL Mycoplasma pneumon IgM Positive H (NEGATIVE) Blood Type Antibody Screen 08/27/17 08/27/17 08/26/17 Range/Units 05:53 05:29 12:40 WBC 9.2 (4.8-10.8) K/uL RBC 3.09 L (4.40-5.90) Mil/uL Hgb 8.8 L (12.0-18.0) g/dL Hct 26.1 L (35.0-51.0) % MCV 84.6 (80.0-94.0) fL MCH 28.4 (27.0-31.0) pg MCHC 33.6 (33.0-37.0) g/dL RDW 16.4 H (11.5-14.5) % Plt Count 226 (130-400) K/uL MPV 8.3 (7.2-11.7) fL Neut % (Auto) 79.5 H (50.0-75.0) % Lymph % (Auto) 9.6 L (20.0-40.0) % Rawlins % (Auto) 10.1 H (0.0-10.0) % Eos % (Auto) 0.6 (0.0-4.0) % Baso % (Auto) 0.2 (0.0-2.0) % Neut # (Auto) 7.3 H (1.8-7.0) K/uL Lymph # (Auto) 0.9 L (1.0-4.3) K/uL Rawlins # (Auto) 0.9 H (0.0-0.8) K/uL Eos # (Auto) 0.1 (0.0-0.7) K/uL Baso # (Auto) 0.0 (0.0-0.2) K/uL Neutrophils % (Manual) 82 H (50-75) % Band Neutrophils % 2 (0-2) % Lymphocytes % (Manual) 9 L (20-40) % Monocytes % (Manual) 7 (0-10) % Platelet Estimate Normal (NORMAL) Polychromasia Slight Hypochromasia (manual) Slight Anisocytosis (manual) Slight PT (9.7-12.2) SECONDS INR APTT (21-34) SECONDS Puncture Site R rad pCO2 27 L (35-45) mm/Hg pO2 115 H (80-100) mm/Hg HCO3 19.8 L (21-28) mmol/L ABG pH 7.41 (7.35-7.45) ABG Total CO2 17.9 L (22-28) mmol/L ABG O2 Saturation 99.6 H (95-98) % ABG Base Excess -6.6 L (-2.0-3.0) mmol/L ABG Hemoglobin 8.5 L (11.7-17.4) g/dL ABG Carboxyhemoglobin 2.3 H (0.5-1.5) % POC ABG HHb (Measured) 0.4 (0.0-5.0) % ABG Methemoglobin 1.4 (0.0-3.0) % Collin Test Pos A-a O2 Difference 136.0 mm/Hg Respiratory Index 1.2 Hgb O2 Saturation 95.9 (95.0-98.0) % Vent Mode Prvc Mechanical Rate 14 FiO2 40.0 % Tidal Volume 450 PEEP 5 Sodium (132-148) mmol/L Potassium (3.6-5.2) mmol/L Chloride (98-107) mmol/L Carbon Dioxide (22-30) mmol/L Anion Gap (10-20) BUN (9-20) mg/dL Creatinine (0.8-1.5) mg/dL Est GFR ( Amer) Est GFR (Non-Af Amer) POC Glucose (mg/dL) (65-110) mg/dL Random Glucose (75-110) mg/dL Calcium (8.6-10.4) mg/dl Phosphorus (2.5-4.5) mg/dL Magnesium (1.6-2.3) mg/dL Total Bilirubin (0.2-1.3) mg/dL AST (17-59) U/L ALT (21-72) U/L Alkaline Phosphatase (38-126) U/L Ammonia (9-33) umol/L Total Protein (6.3-8.3) g/dL Albumin (3.5-5.0) g/dL Globulin (2.2-3.9) gm/dL Albumin/Globulin Ratio (1.0-2.1) Valproic Acid (50.0-100.0) ug/mL Mycoplasma pneumon IgM (NEGATIVE) Blood Type O POSITIVE Antibody Screen Negative Laboratory Results - last 24 hr 08/26/17 08/27/17 08/27/17 12:40 05:29 05:53 WBC 9.2 RBC 3.09 L Hgb 8.8 L Hct 26.1 L MCV 84.6 MCH 28.4 MCHC 33.6 RDW 16.4 H Plt Count 226 MPV 8.3 Neut % (Auto) 79.5 H Lymph % (Auto) 9.6 L Rawlins % (Auto) 10.1 H Eos % (Auto) 0.6 Baso % (Auto) 0.2 Neut # (Auto) 7.3 H Lymph # (Auto) 0.9 L Rawlins # (Auto) 0.9 H Eos # (Auto) 0.1 Baso # (Auto) 0.0 Neutrophils % (Manual) 82 H Band Neutrophils % 2 Lymphocytes % (Manual) 9 L Monocytes % (Manual) 7 Platelet Estimate Normal Polychromasia Slight Hypochromasia (manual) Slight Anisocytosis (manual) Slight PT INR APTT Puncture Site R rad pCO2 27 L pO2 115 H HCO3 19.8 L ABG pH 7.41 ABG Total CO2 17.9 L ABG O2 Saturation 99.6 H ABG Base Excess -6.6 L ABG Hemoglobin 8.5 L ABG Carboxyhemoglobin 2.3 H POC ABG HHb (Measured) 0.4 ABG Methemoglobin 1.4 Collin Test Pos A-a O2 Difference 136.0 Respiratory Index 1.2 Hgb O2 Saturation 95.9 Vent Mode Prvc Mechanical Rate 14 FiO2 40.0 Tidal Volume 450 PEEP 5 Sodium Potassium Chloride Carbon Dioxide Anion Gap BUN Creatinine Est GFR ( Amer) Est GFR (Non-Af Amer) POC Glucose (mg/dL) Random Glucose Calcium Phosphorus Magnesium Total Bilirubin AST ALT Alkaline Phosphatase Ammonia Total Protein Albumin Globulin Albumin/Globulin Ratio Valproic Acid Mycoplasma pneumon IgM Blood Type O POSITIVE Antibody Screen Negative 08/27/17 08/27/17 08/27/17 05:53 05:55 05:55 WBC RBC Hgb Hct MCV MCH MCHC RDW Plt Count MPV Neut % (Auto) Lymph % (Auto) Rawlins % (Auto) Eos % (Auto) Baso % (Auto) Neut # (Auto) Lymph # (Auto) Rawlins # (Auto) Eos # (Auto) Baso # (Auto) Neutrophils % (Manual) Band Neutrophils % Lymphocytes % (Manual) Monocytes % (Manual) Platelet Estimate Polychromasia Hypochromasia (manual) Anisocytosis (manual) PT 14.9 H INR 1.4 APTT 31 D Puncture Site pCO2 pO2 HCO3 ABG pH ABG Total CO2 ABG O2 Saturation ABG Base Excess ABG Hemoglobin ABG Carboxyhemoglobin POC ABG HHb (Measured) ABG Methemoglobin Collin Test A-a O2 Difference Respiratory Index Hgb O2 Saturation Vent Mode Mechanical Rate FiO2 Tidal Volume PEEP Sodium 142 Potassium 3.4 L Chloride 114 H Carbon Dioxide 19 L Anion Gap 13 BUN 13 Creatinine 0.6 L Est GFR ( Amer) > 60 Est GFR (Non-Af Amer) > 60 POC Glucose (mg/dL) Random Glucose 97 Calcium 6.7 L Phosphorus 1.7 L Magnesium 2.0 Total Bilirubin 0.8 AST 56 ALT 13 L D Alkaline Phosphatase 116 Ammonia Total Protein 6.1 L Albumin 2.3 L Globulin 3.8 Albumin/Globulin Ratio 0.6 L Valproic Acid Mycoplasma pneumon IgM Positive H Blood Type Antibody Screen 08/27/17 08/27/17 08/27/17 11:16 11:32 11:32 WBC RBC Hgb Hct MCV MCH MCHC RDW Plt Count MPV Neut % (Auto) Lymph % (Auto) Rawlins % (Auto) Eos % (Auto) Baso % (Auto) Neut # (Auto) Lymph # (Auto) Rawlins # (Auto) Eos # (Auto) Baso # (Auto) Neutrophils % (Manual) Band Neutrophils % Lymphocytes % (Manual) Monocytes % (Manual) Platelet Estimate Polychromasia Hypochromasia (manual) Anisocytosis (manual) PT INR APTT Puncture Site pCO2 pO2 HCO3 ABG pH ABG Total CO2 ABG O2 Saturation ABG Base Excess ABG Hemoglobin ABG Carboxyhemoglobin POC ABG HHb (Measured) ABG Methemoglobin Collin Test A-a O2 Difference Respiratory Index Hgb O2 Saturation Vent Mode Mechanical Rate FiO2 Tidal Volume PEEP Sodium Potassium Chloride Carbon Dioxide Anion Gap BUN Creatinine Est GFR ( Amer) Est GFR (Non-Af Amer) POC Glucose (mg/dL) 116 H Random Glucose Calcium Phosphorus Magnesium Total Bilirubin AST ALT Alkaline Phosphatase Ammonia 11 Total Protein Albumin Globulin Albumin/Globulin Ratio Valproic Acid 46.4 L Mycoplasma pneumon IgM Blood Type Antibody Screen Fingerstick Blood Sugar Results: 116 Review of Systems - Review of Systems Systems not reviewed;Unavailable: Intubated Assessment/Plan - Assessment and Plan (Free Text) Assessment: 77 year old male with PMHx of Arthritis, Asthma, COPD, Severe Dementia, HTN, Pneumonia, Seizures, TIA, and Right AKA presents from senior living due to fever of an unknown duration. Code Sepsis called in ED. Patient admitted to ICU for evaluation and treatment of SEPSIS. Patient began desating requiring emergent intubation. Plan: Neuro: GCS: 8T Sedation: Etomidate for Intubation then further sedated with 2mg Ativan. A: Severe Dementia, Hx of Seizure Home Carbamazepine 100mg Q8 | Home Valproic Acid 250mg PEG QID Ativan PRN for agitation. Cardio: A: HTN, Hx of TIA, Hypotension Central Line placed in Right IJ. Stat lasix given in the ED. Cont. Lasix Daily Fluid Bolus and 1 Unit of PRBC given today Pulm: CXR (Admission): Stable postsurgical changes in the right lung with low lung volume and shift of mediastinal to the right. No acute findings. A: Hypoxic Res. Failure, Asthma, COPD Intubated Emergently: ON PRVC: 100%Fi02, 14 RR, 450 TV, 5 PEEP ABG (Adm): 7.4/31/326/21.6 ABG ( 08/27): 7.41/27/115/19.8 DuoNebs Schedule Wean Fi02 as tolerated Daily CPAP trials. Tolerated CPAP for 2.5 hours today then hyperventilated. Endo A: Hypoglycemia (Stable) GI: No Acute Issues Renal: A: Hypocalcemia (stable), Hypokalemia Received Calcium Gluconate in ED. Monitor Calcium Potassium Replaced Heme/Onc: A: Normocytic Anemia 1 Unit of PRBC Today ID A: Code Sepsis Febrile (Resolved) Elevated Lactate (Resolved) Blood Cultures - NEGATIVE for 3 days. Urine Cultures - NEGATIVE Wound Cultures - Coagulase Neg Staph, Likely normal Skin Kim MRSA - NEGATIVE Mycoplasma Pneumonia IgM - POSITIVE 2gm Cefepime given in ED Cont. Zosyn and Vanc. Azithromycin Started today per ID ProCal - 9.6 Integumentary A: Left Lower ext wounds Wound Care. Proph Protonix Lovenox Diet: Tube Feeding - Jevity 1.5 Patient discussed with ICU Attending Niraj Negrete, PGY-1 <Juliann Bain M - Last Filed: 08/28/17 16:01> CCU Objective - Vital Signs / Intake & Output Vital Signs (Last 4 hours): Vital Signs Temp Pulse Resp BP Pulse Ox 08/27/17 18:00 95 H 32 H 99 08/27/17 17:52 88 25 H 104/55 L 98 08/27/17 17:00 85 25 H 98 08/27/17 16:52 85 24 107/62 100 08/27/17 16:20 88 27 H 107/60 98 08/27/17 16:19 88 27 H 98 08/27/17 16:00 98.3 F 85 25 H 97 08/27/17 15:52 86 24 85/46 L 97 08/27/17 15:00 91 H 25 H 98 08/27/17 14:52 88 23 100/59 L 99 Intake and Output (Last 8hrs): Intake & Output 08/27/17 08/27/17 08/27/17 06:59 14:59 22:59 Intake Total 760 935 260 Output Total 400 250 75 Balance 360 685 185 Weight 125 lb Intake: Intake, IV Amount 350 605 100 Left Distal Port Internal 350 605 100 Jugular Oral 50 Tube Feeding 360 280 160 Other 50 Output: Urine 400 250 75 Urethral (Garcia) 400 250 Urine, Voided 0 75 Other: # Bowel Movements 1 - Medications Active Medications: Active Medications Generic Name Dose Route Start Last Admin Trade Name Freq PRN Reason Stop Dose Admin Acetaminophen 650 mg 08/25/17 17:20 Tylenol 650 Mg Supp MD Q4 PRN Fever >100.4 F Carbamazepine 100 mg 08/24/17 22:00 08/27/17 13:41 Tegretol PEG 100 mg Q8 AMY Administration Enoxaparin Sodium 40 mg 08/24/17 18:00 08/27/17 10:46 Lovenox SC 40 mg DAILY AMY Administration Vancomycin/Sodium Chloride 1 gm in 200 mls @ 133 mls/hr 08/24/17 19:30 06:58 Vancomycin 1 Gm/Ns 200 Ml IVPB 08/29/17 19:31 133 mls/hr Q12H AMY Administration Protocol Azithromycin 500 mg/ Sodium 250 mls @ 250 mls/hr 08/27/17 10:00 08/27/17 13: 58 Chloride IVPB 250 mls/hr DAILY AMY Administration Protocol Piperacillin Sod/Tazobactam 100 mls @ 100 mls/hr 08/27/17 11:00 08/27/17 16: 54 Sod 3.375 gm/ Sodium Chloride IVPB 100 mls/hr Q6H AMY Administration Protocol Pantoprazole Sodium 40 mg 08/27/17 10:00 08/27/17 10:46 Protonix Inj IVP 40 mg DAILY AMY Administration Rosuvastatin Calcium 5 mg 08/24/17 22:00 08/26/17 21:01 Crestor PO 5 mg HS AMY Administration Valproate Sodium 250 mg 08/24/17 18:00 08/27/17 17:00 Depakene Oral Soln PEG 250 mg QID AMY Administration - Patient Studies Lab Studies: Microbiology Studies 08/24/17 13:31 Blood Culture - Preliminary Blood NO GROWTH AFTER 3 DAYS 08/24/17 13:31 Blood Culture - Preliminary Blood NO GROWTH AFTER 3 DAYS 08/25/17 14:28 Gram Stain - Final Ankle - Left Wound Culture - Final Coagulase Neg Staphylococcus Lab Studies 08/27/17 08/27/17 08/27/17 Range/Units 11:32 11:32 11:16 WBC (4.8-10.8) K/uL RBC (4.40-5.90) Mil/uL Hgb (12.0-18.0) g/dL Hct (35.0-51.0) % MCV (80.0-94.0) fL MCH (27.0-31.0) pg MCHC (33.0-37.0) g/dL RDW (11.5-14.5) % Plt Count (130-400) K/uL MPV (7.2-11.7) fL Neut % (Auto) (50.0-75.0) % Lymph % (Auto) (20.0-40.0) % Rawlins % (Auto) (0.0-10.0) % Eos % (Auto) (0.0-4.0) % Baso % (Auto) (0.0-2.0) % Neut # (Auto) (1.8-7.0) K/uL Lymph # (Auto) (1.0-4.3) K/uL Rawlins # (Auto) (0.0-0.8) K/uL Eos # (Auto) (0.0-0.7) K/uL Baso # (Auto) (0.0-0.2) K/uL Neutrophils % (Manual) (50-75) % Band Neutrophils % (0-2) % Lymphocytes % (Manual) (20-40) % Monocytes % (Manual) (0-10) % Platelet Estimate (NORMAL) Polychromasia Hypochromasia (manual) Anisocytosis (manual) PT (9.7-12.2) SECONDS INR APTT (21-34) SECONDS Puncture Site pCO2 (35-45) mm/Hg pO2 (80-100) mm/Hg HCO3 (21-28) mmol/L ABG pH (7.35-7.45) ABG Total CO2 (22-28) mmol/L ABG O2 Saturation (95-98) % ABG Base Excess (-2.0-3.0) mmol/L ABG Hemoglobin (11.7-17.4) g/dL ABG Carboxyhemoglobin (0.5-1.5) % POC ABG HHb (Measured) (0.0-5.0) % ABG Methemoglobin (0.0-3.0) % Collin Test A-a O2 Difference mm/Hg Respiratory Index Hgb O2 Saturation (95.0-98.0) % Vent Mode Mechanical Rate FiO2 % Tidal Volume PEEP Sodium (132-148) mmol/L Potassium (3.6-5.2) mmol/L Chloride (98-107) mmol/L Carbon Dioxide (22-30) mmol/L Anion Gap (10-20) BUN (9-20) mg/dL Creatinine (0.8-1.5) mg/dL Est GFR ( Amer) Est GFR (Non-Af Amer) POC Glucose (mg/dL) 116 H (65-110) mg/dL Random Glucose (75-110) mg/dL Calcium (8.6-10.4) mg/dl Phosphorus (2.5-4.5) mg/dL Magnesium (1.6-2.3) mg/dL Total Bilirubin (0.2-1.3) mg/dL AST (17-59) U/L ALT (21-72) U/L Alkaline Phosphatase (38-126) U/L Ammonia 11 (9-33) umol/L Total Protein (6.3-8.3) g/dL Albumin (3.5-5.0) g/dL Globulin (2.2-3.9) gm/dL Albumin/Globulin Ratio (1.0-2.1) Valproic Acid 46.4 L (50.0-100.0) ug/mL Mycoplasma pneumon IgM (NEGATIVE) 08/27/17 08/27/17 08/27/17 Range/Units 05:55 05:55 05:53 WBC (4.8-10.8) K/uL RBC (4.40-5.90) Mil/uL Hgb (12.0-18.0) g/dL Hct (35.0-51.0) % MCV (80.0-94.0) fL MCH (27.0-31.0) pg MCHC (33.0-37.0) g/dL RDW (11.5-14.5) % Plt Count (130-400) K/uL MPV (7.2-11.7) fL Neut % (Auto) (50.0-75.0) % Lymph % (Auto) (20.0-40.0) % Rawlins % (Auto) (0.0-10.0) % Eos % (Auto) (0.0-4.0) % Baso % (Auto) (0.0-2.0) % Neut # (Auto) (1.8-7.0) K/uL Lymph # (Auto) (1.0-4.3) K/uL Rawlins # (Auto) (0.0-0.8) K/uL Eos # (Auto) (0.0-0.7) K/uL Baso # (Auto) (0.0-0.2) K/uL Neutrophils % (Manual) (50-75) % Band Neutrophils % (0-2) % Lymphocytes % (Manual) (20-40) % Monocytes % (Manual) (0-10) % Platelet Estimate (NORMAL) Polychromasia Hypochromasia (manual) Anisocytosis (manual) PT 14.9 H (9.7-12.2) SECONDS INR 1.4 APTT 31 D (21-34) SECONDS Puncture Site pCO2 (35-45) mm/Hg pO2 (80-100) mm/Hg HCO3 (21-28) mmol/L ABG pH (7.35-7.45) ABG Total CO2 (22-28) mmol/L ABG O2 Saturation (95-98) % ABG Base Excess (-2.0-3.0) mmol/L ABG Hemoglobin (11.7-17.4) g/dL ABG Carboxyhemoglobin (0.5-1.5) % POC ABG HHb (Measured) (0.0-5.0) % ABG Methemoglobin (0.0-3.0) % Collin Test A-a O2 Difference mm/Hg Respiratory Index Hgb O2 Saturation (95.0-98.0) % Vent Mode Mechanical Rate FiO2 % Tidal Volume PEEP Sodium 142 (132-148) mmol/L Potassium 3.4 L (3.6-5.2) mmol/L Chloride 114 H (98-107) mmol/L Carbon Dioxide 19 L (22-30) mmol/L Anion Gap 13 (10-20) BUN 13 (9-20) mg/dL Creatinine 0.6 L (0.8-1.5) mg/dL Est GFR ( Amer) > 60 Est GFR (Non-Af Amer) > 60 POC Glucose (mg/dL) (65-110) mg/dL Random Glucose 97 (75-110) mg/dL Calcium 6.7 L (8.6-10.4) mg/dl Phosphorus 1.7 L (2.5-4.5) mg/dL Magnesium 2.0 (1.6-2.3) mg/dL Total Bilirubin 0.8 (0.2-1.3) mg/dL AST 56 (17-59) U/L ALT 13 L D (21-72) U/L Alkaline Phosphatase 116 (38-126) U/L Ammonia (9-33) umol/L Total Protein 6.1 L (6.3-8.3) g/dL Albumin 2.3 L (3.5-5.0) g/dL Globulin 3.8 (2.2-3.9) gm/dL Albumin/Globulin Ratio 0.6 L (1.0-2.1) Valproic Acid (50.0-100.0) ug/mL Mycoplasma pneumon IgM Positive H (NEGATIVE) 08/27/17 08/27/17 Range/Units 05:53 05:29 WBC 9.2 (4.8-10.8) K/uL RBC 3.09 L (4.40-5.90) Mil/uL Hgb 8.8 L (12.0-18.0) g/dL Hct 26.1 L (35.0-51.0) % MCV 84.6 (80.0-94.0) fL MCH 28.4 (27.0-31.0) pg MCHC 33.6 (33.0-37.0) g/dL RDW 16.4 H (11.5-14.5) % Plt Count 226 (130-400) K/uL MPV 8.3 (7.2-11.7) fL Neut % (Auto) 79.5 H (50.0-75.0) % Lymph % (Auto) 9.6 L (20.0-40.0) % Rawlins % (Auto) 10.1 H (0.0-10.0) % Eos % (Auto) 0.6 (0.0-4.0) % Baso % (Auto) 0.2 (0.0-2.0) % Neut # (Auto) 7.3 H (1.8-7.0) K/uL Lymph # (Auto) 0.9 L (1.0-4.3) K/uL Rawlins # (Auto) 0.9 H (0.0-0.8) K/uL Eos # (Auto) 0.1 (0.0-0.7) K/uL Baso # (Auto) 0.0 (0.0-0.2) K/uL Neutrophils % (Manual) 82 H (50-75) % Band Neutrophils % 2 (0-2) % Lymphocytes % (Manual) 9 L (20-40) % Monocytes % (Manual) 7 (0-10) % Platelet Estimate Normal (NORMAL) Polychromasia Slight Hypochromasia (manual) Slight Anisocytosis (manual) Slight PT (9.7-12.2) SECONDS INR APTT (21-34) SECONDS Puncture Site R rad pCO2 27 L (35-45) mm/Hg pO2 115 H (80-100) mm/Hg HCO3 19.8 L (21-28) mmol/L ABG pH 7.41 (7.35-7.45) ABG Total CO2 17.9 L (22-28) mmol/L ABG O2 Saturation 99.6 H (95-98) % ABG Base Excess -6.6 L (-2.0-3.0) mmol/L ABG Hemoglobin 8.5 L (11.7-17.4) g/dL ABG Carboxyhemoglobin 2.3 H (0.5-1.5) % POC ABG HHb (Measured) 0.4 (0.0-5.0) % ABG Methemoglobin 1.4 (0.0-3.0) % Collin Test Pos A-a O2 Difference 136.0 mm/Hg Respiratory Index 1.2 Hgb O2 Saturation 95.9 (95.0-98.0) % Vent Mode Prvc Mechanical Rate 14 FiO2 40.0 % Tidal Volume 450 PEEP 5 Sodium (132-148) mmol/L Potassium (3.6-5.2) mmol/L Chloride (98-107) mmol/L Carbon Dioxide (22-30) mmol/L Anion Gap (10-20) BUN (9-20) mg/dL Creatinine (0.8-1.5) mg/dL Est GFR ( Amer) Est GFR (Non-Af Amer) POC Glucose (mg/dL) (65-110) mg/dL Random Glucose (75-110) mg/dL Calcium (8.6-10.4) mg/dl Phosphorus (2.5-4.5) mg/dL Magnesium (1.6-2.3) mg/dL Total Bilirubin (0.2-1.3) mg/dL AST (17-59) U/L ALT (21-72) U/L Alkaline Phosphatase (38-126) U/L Ammonia (9-33) umol/L Total Protein (6.3-8.3) g/dL Albumin (3.5-5.0) g/dL Globulin (2.2-3.9) gm/dL Albumin/Globulin Ratio (1.0-2.1) Valproic Acid (50.0-100.0) ug/mL Mycoplasma pneumon IgM (NEGATIVE) Laboratory Results - last 24 hr 08/27/17 08/27/17 08/27/17 05:29 05:53 05:53 WBC 9.2 RBC 3.09 L Hgb 8.8 L Hct 26.1 L MCV 84.6 MCH 28.4 MCHC 33.6 RDW 16.4 H Plt Count 226 MPV 8.3 Neut % (Auto) 79.5 H Lymph % (Auto) 9.6 L Rawlins % (Auto) 10.1 H Eos % (Auto) 0.6 Baso % (Auto) 0.2 Neut # (Auto) 7.3 H Lymph # (Auto) 0.9 L Rawlins # (Auto) 0.9 H Eos # (Auto) 0.1 Baso # (Auto) 0.0 Neutrophils % (Manual) 82 H Band Neutrophils % 2 Lymphocytes % (Manual) 9 L Monocytes % (Manual) 7 Platelet Estimate Normal Polychromasia Slight Hypochromasia (manual) Slight Anisocytosis (manual) Slight PT 14.9 H INR 1.4 APTT 31 D Puncture Site R rad pCO2 27 L pO2 115 H HCO3 19.8 L ABG pH 7.41 ABG Total CO2 17.9 L ABG O2 Saturation 99.6 H ABG Base Excess -6.6 L ABG Hemoglobin 8.5 L ABG Carboxyhemoglobin 2.3 H POC ABG HHb (Measured) 0.4 ABG Methemoglobin 1.4 Collin Test Pos A-a O2 Difference 136.0 Respiratory Index 1.2 Hgb O2 Saturation 95.9 Vent Mode Prvc Mechanical Rate 14 FiO2 40.0 Tidal Volume 450 PEEP 5 Sodium Potassium Chloride Carbon Dioxide Anion Gap BUN Creatinine Est GFR ( Amer) Est GFR (Non-Af Amer) POC Glucose (mg/dL) Random Glucose Calcium Phosphorus Magnesium Total Bilirubin AST ALT Alkaline Phosphatase Ammonia Total Protein Albumin Globulin Albumin/Globulin Ratio Valproic Acid Mycoplasma pneumon IgM 08/27/17 08/27/17 08/27/17 05:55 05:55 11:16 WBC RBC Hgb Hct MCV MCH MCHC RDW Plt Count MPV Neut % (Auto) Lymph % (Auto) Raw[place] % (Auto) Eos % (Auto) Baso % (Auto) Neut # (Auto) Lymph # (Auto) [place] # (Auto) Eos # (Auto) Baso # (Auto) Neutrophils % (Manual) Band Neutrophils % Lymphocytes % (Manual) Monocytes % (Manual) Platelet Estimate Polychromasia Hypochromasia (manual) Anisocytosis (manual) PT INR APTT Puncture Site pCO2 pO2 HCO3 ABG pH ABG Total CO2 ABG O2 Saturation ABG Base Excess ABG Hemoglobin ABG Carboxyhemoglobin POC ABG HHb (Measured) ABG Methemoglobin Collin Test A-a O2 Difference Respiratory Index Hgb O2 Saturation Vent Mode Mechanical Rate FiO2 Tidal Volume PEEP Sodium 142 Potassium 3.4 L Chloride 114 H Carbon Dioxide 19 L Anion Gap 13 BUN 13 Creatinine 0.6 L Est GFR ( Amer) > 60 Est GFR (Non-Af Amer) > 60 POC Glucose (mg/dL) 116 H Random Glucose 97 Calcium 6.7 L Phosphorus 1.7 L Magnesium 2.0 Total Bilirubin 0.8 AST 56 ALT 13 L D Alkaline Phosphatase 116 Ammonia Total Protein 6.1 L Albumin 2.3 L Globulin 3.8 Albumin/Globulin Ratio 0.6 L Valproic Acid Mycoplasma pneumon IgM Positive H 08/27/17 08/27/17 11:32 11:32 WBC RBC Hgb Hct MCV MCH MCHC RDW Plt Count MPV Neut % (Auto) Lymph % (Auto) [place] % (Auto) Eos % (Auto) Baso % (Auto) Neut # (Auto) Lymph # (Auto) [place] # (Auto) Eos # (Auto) Baso # (Auto) Neutrophils % (Manual) Band Neutrophils % Lymphocytes % (Manual) Monocytes % (Manual) Platelet Estimate Polychromasia Hypochromasia (manual) Anisocytosis (manual) PT INR APTT Puncture Site pCO2 pO2 HCO3 ABG pH ABG Total CO2 ABG O2 Saturation ABG Base Excess ABG Hemoglobin ABG Carboxyhemoglobin POC ABG HHb (Measured) ABG Methemoglobin Collin Test A-a O2 Difference Respiratory Index Hgb O2 Saturation Vent Mode Mechanical Rate FiO2 Tidal Volume PEEP Sodium Potassium Chloride Carbon Dioxide Anion Gap BUN Creatinine Est GFR ( Amer) Est GFR (Non-Af Amer) POC Glucose (mg/dL) Random Glucose Calcium Phosphorus Magnesium Total Bilirubin AST ALT Alkaline Phosphatase Ammonia 11 Total Protein Albumin Globulin Albumin/Globulin Ratio Valproic Acid 46.4 L Mycoplasma pneumon IgM Assessment/Plan - Assessment and Plan (Free Text) Plan: Patient seen and examined at bedside with above resident. Above residnet note reviewed and verified. Patient admitted to ICU for acute respiratory failure. -Acute hypoxic respiratory failure: resolving with ventilation, patient tolerated CPAP trials today with RSBI near 52, mental status not awaken (off all sedation) -Lobar Pneumonia: continue empirical abx, include atypical treatment, f/u cultures -AMS: h/o seizures, not responsvie, obtain EEG, neurology eval -contineu NG tube feeds -continue DVT/PUD ppx -CPAP trials daily no garcia, left IJ for poor iv access"
--- NOTE | 2017-08-27 14:42 | CP.PCM.PN ---
Subjective - Date & Time of Evaluation Date of Evaluation: 08/27/17 Time of Evaluation: 02:15 - Subjective Subjective: dictated Objective - Vital Signs/Intake and Output Vital Signs (last 24 hours): Temp Pulse Resp BP Pulse Ox 98.6 F 90 26 H 94/49 L 99 08/27/17 12:00 08/27/17 14:00 08/27/17 14:00 08/27/17 13:52 08/27/17 14:00 Intake and Output: 08/27/17 08/27/17 06:59 18:59 Intake Total 1010 935 Output Total 560 250 Balance 450 685 - Medications Medications: Current Medications Acetaminophen (Tylenol 650 Mg Supp) 650 mg AR Q4 PRN PRN Reason: Fever >100.4 F Carbamazepine (Tegretol) 100 mg PEG Q8 [facility] Last Admin: 08/27/17 13:41 Dose: 100 mg Enoxaparin Sodium (Lovenox) 40 mg SC DAILY [facility] Last Admin: 08/27/17 10:46 Dose: 40 mg Vancomycin/Sodium Chloride (Vancomycin 1 Gm/Ns 200 Ml) 1 gm in 200 mls @ 133 mls/hr IVPB Q12H [facility] PRN Reason: Protocol Stop: 08/29/17 19:31 Last Admin: 08/27/17 06:58 Dose: 133 mls/hr Azithromycin 500 mg/ Sodium (Chloride) 250 mls @ 250 mls/hr IVPB DAILY [facility] PRN Reason: Protocol Last Admin: 08/27/17 13:58 Dose: 250 mls/hr Potassium Phosphate 15 mmole/ (Sodium Chloride) 255 mls @ 42.5 mls/hr IVPB ONCE ONE Stop: 08/27/17 14:59 Last Admin: 08/27/17 10:43 Dose: 42.5 mls/hr Piperacillin Sod/Tazobactam (Sod 3.375 gm/ Sodium Chloride) 100 mls @ 100 mls/ hr IVPB Q6H [facility] PRN Reason: Protocol Last Admin: 08/27/17 13:58 Dose: 100 mls/hr Pantoprazole Sodium (Protonix Inj) 40 mg IVP DAILY [facility] Last Admin: 08/27/17 10:46 Dose: 40 mg Rosuvastatin Calcium (Crestor) 5 mg PO HS [facility] Last Admin: 08/26/17 21:01 Dose: 5 mg Valproate Sodium (Depakene Oral Soln) 250 mg PEG QID [facility] Last Admin: 08/27/17 13:41 Dose: 250 mg - Labs Labs: 08/27/17 05:53 08/27/17 05:55 PT 14.9 SECONDS (9.7-12.2) H 08/27/17 05:53 INR 1.4 08/27/17 05:53 APTT 31 SECONDS (21-34) D 08/27/17 05:53
[2017-08-27] MEDS ORDERED: Iohexol 240 (50 ml) PO ONE (17:45)
[2017-08-27] MEDS ORDERED: Valproate 250 MG in Sodium Chloride 0.9% 100 ML IVPB ONE (19:20)
--- NOTE | 2017-08-27 19:37 | PN ---
DATE: 08/27/2017 SUBJECTIVE: Remains intubated and sedated in the ICU. PHYSICAL EXAMINATION: VITAL SIGNS: T-max is 98.6 today, heart of 97, blood pressure is 109/65, respiratory rate is 35. GENERAL: He is on a vent, unable to give any complaints and lethargic. He is unresponsive. NECK: Supple. LUNGS: Clear. HEART: S1, S2 are regular. ABDOMEN: Soft, nontender. EXTREMITIES: He has a right AKA. Left leg has multiple areas of decubiti and pressure sores also in the sacral area. LABORATORY DATA: White count is 9.2, hemoglobin 8.8, hematocrit 26.1, platelet count is 226. I wanted to do CAT scans to rule out any other source of sepsis as procalcitonin was high of 9.69 recently. 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 He did get transfusion recently and he is being followed for any loss of blood and CAT scans are pending as he was hypertensive still and was seen by the palliative care nurse. I will be away until 09/03/[address] Enriquez will be covering me until 09/03/2017 and if he is still here, I will follow. Bladimir Muñoz MD
--- NOTE | 2017-08-27 22:31 | CT ---
EXAM: CT Chest Without Intravenous Contrast CLINICAL HISTORY: 77 years old, male; Signs and symptoms; Fever; Cough; Symptoms not specified; Additional info: Sepsis blood loss TECHNIQUE: Axial computed tomography images of the chest without intravenous contrast. All CT scans at this facility use one or more dose reduction techniques, viz.: automated exposure control; ma/kV adjustment per patient size (including targeted exams where dose is matched to indication; i.e. head); or iterative reconstruction technique. Coronal and sagittal reformatted images were created and reviewed. COMPARISON: CT chest 08/03/17 FINDINGS: Artifacts: Motion artifact degrades image quality. Tubes, lines and devices: An endotracheal tube is in place. Tip of the tube is above the marii. There is a left jugular catheter, tip abutting the wall of the proximal superior vena cava. Lungs and pleural spaces: There are panlobular and centrilobular emphysematous changes bilaterally. There are cavitary lesions at the right apex, blebs/bulla versus true cavities. There are air-fluid levels in the lesions. There is an increase in the amount of fluid in the lesions. There is an increase in the right pleural effusion. There is increasing airspace disease in the right upper and lower lobes. Right lower lobe airspace disease superimposed on fibrotic changes. There continues to be a left pleural effusion. There is increasing airspace disease at the left base, atelectasis and/or infiltrate. Heart and vasculature: Heart size is normal. There are coronary artery calcifications.There is fluid in pericardial recesses.Aorta and main pulmonary artery are normal in caliber. There are vascular calcifications. Mediastinum: There is right-sided volume loss with shift of heart and mediastinal structures to the right. The esophagus is unremarkable. There are shotty mediastinal nodes.Bailey are not optimally evaluated without contrast material. Thyroid: Thyroid is not optimally demonstrated. Bones/joints: Bony structures are osteopenic. There are degenerative changes. There are extensive posttraumatic and postsurgical changes in the right chest wall, unchanged. Soft tissues: unremarkable Upper abdomen: Refer to following report for abdominal findings IMPRESSION: Emphysema and fibrosis; blebs/bulla versus cavitary lesions in the right apex with increasing amount of fluid within the lesions; increasing pleural effusions with increasing airspace disease in the right upper lobe and in both lower lobes; atherosclerotic disease; postsurgical changes in the right chest wall EXAM: CT Abdomen and Pelvis Without Intravenous Contrast EXAM DATE/TIME: 08/27/2017 8:00 AM CLINICAL HISTORY: 77 years old, male; Signs and symptoms; Fever; Cough; Symptoms not specified; Additional info: Sepsis blood loss TECHNIQUE: Axial computed tomography images of the abdomen and pelvis without intravenous contrast. All CT scans at this facility use one or more dose reduction techniques, viz.: automated exposure control; ma/kV adjustment per patient size (including targeted exams where dose is matched to indication; i.e. head); or iterative reconstruction technique. Coronal and sagittal reformatted images were created and reviewed. COMPARISON: There are no prior studies for comparison. FINDINGS: Artifacts: Motion artifact degrades image quality. Lung bases: Refer to prior report for chest findings ABDOMEN: Liver: unremarkable Gallbladder and bile ducts: unremarkable Pancreas: Pancreas is mildly atrophic. Spleen: unremarkable Adrenals: There is mild thickening of both adrenals. Kidneys and ureters: unremarkable Stomach and bowel: Stomach is distended with an air-fluid level. There is a gastric PEG tube. There is mild antral and duodenal wall thickening. There is mild diffuse small bowel wall thickening. There is no obstruction. Ileocecal region is unremarkable. Appendix and terminal ileum are unremarkable.There is ascending and proximal transverse colon wall thickening. There is sigmoid diverticulosis there is distal sigmoid and rectal wall thickening. PELVIS: Appendix: See stomach and bowel Bladder: Bladder is almost empty. There is bladder wall thickening. There is air in the bladder. Reproductive: Prostate is mildly enlarged. Seminal vesicles are unremarkable. Subperitoneal space: There is inflammation and edema in the presacral soft tissues. ABDOMEN and PELVIS: Intraperitoneal space: There is ascites in the abdomen and pelvis. There is no free air. Bones/joints: Bony structures are osteopenic. There are degenerative changes. There are rods in the left femur. There are old right pelvic fractures. There compression fractures L1 and L3. Soft tissues: There is body wall edema. Vasculature: There are vascular calcifications. Lymph nodes: There is no pathologic adenopathy. IMPRESSION: Enterocolitis; ascites; mild bladder wall thickening with air in the bladder, iatrogenic versus infectious Additional nonemergent findings as described above.
--- NOTE | 2017-08-28 04:39 | CP.PCM.PN ---
Subjective - Date & Time of Evaluation Date of Evaluation: 08/27/17 Time of Evaluation: 18:00 - Subjective Subjective: Pt seen and examined at bedside, remains on on Mechanical Ventilation. Clincally same Objective - Vital Signs/Intake and Output Vital Signs (last 24 hours): Temp Pulse Resp BP Pulse Ox 99.3 F 95 H 24 98/54 L 97 08/28/17 00:00 08/28/17 02:53 08/28/17 02:53 08/28/17 02:53 08/28/17 02:53 Intake and Output: 08/27/17 08/28/17 18:59 06:59 Intake Total 2035 560 Output Total 325 Balance 1710 560 - Medications Medications: Current Medications Acetaminophen (Tylenol 650 Mg Supp) 650 mg [place] Q4 PRN PRN Reason: Fever >100.4 F Carbamazepine (Tegretol) 100 mg PEG Q8 [facility] Last Admin: 08/27/17 22:41 Dose: 100 mg Enoxaparin Sodium (Lovenox) 40 mg SC DAILY [facility] Last Admin: 08/27/17 10:46 Dose: 40 mg Vancomycin/Sodium Chloride (Vancomycin 1 Gm/Ns 200 Ml) 1 gm in 200 mls @ 133 mls/hr IVPB Q12H [facility] PRN Reason: Protocol Stop: 08/29/17 19:31 Last Admin: 08/27/17 19:36 Dose: 133 mls/hr Azithromycin 500 mg/ Sodium (Chloride) 250 mls @ 250 mls/hr IVPB DAILY [facility] PRN Reason: Protocol Last Admin: 08/27/17 13:58 Dose: 250 mls/hr Piperacillin Sod/Tazobactam (Sod 3.375 gm/ Sodium Chloride) 100 mls @ 100 mls/ hr IVPB Q6H [facility] PRN Reason: Protocol Last Admin: 08/27/17 22:41 Dose: 100 mls/hr Pantoprazole Sodium (Protonix Inj) 40 mg IVP DAILY [facility] Last Admin: 08/27/17 10:46 Dose: 40 mg Rosuvastatin Calcium (Crestor) 5 mg PO HS [facility] Last Admin: 08/27/17 22:41 Dose: 5 mg Valproate Sodium (Depakene Oral Soln) 250 mg PEG QID [facility] Last Admin: 08/27/17 22:41 Dose: 250 mg - Labs Labs: 08/27/17 05:53 08/27/17 05:55 PT 14.9 SECONDS (9.7-12.2) H 08/27/17 05:53 INR 1.4 08/27/17 05:53 APTT 31 SECONDS (21-34) D 08/27/17 05:53 - Constitutional Appears: In Acute Distress, Chronically Ill - Head Exam Head Exam: ATRAUMATIC, NORMAL INSPECTION, NORMOCEPHALIC - Eye Exam Eye Exam: EOMI, Normal appearance, PERRL Pupil Exam: NORMAL ACCOMODATION, PERRL - Respiratory Exam Respiratory Exam: Decreased Breath Sounds, Rales, Rhonchi - Cardiovascular Exam Cardiovascular Exam: REGULAR RHYTHM, +S1, +S2. absent: Murmur - GI/Abdominal Exam GI & Abdominal Exam: Soft, Normal Bowel Sounds. absent: Tenderness Assessment and Plan (1) Sepsis Status: Acute (2) Fever Status: Acute (3) Seizure disorder Status: Acute (4) COPD (chronic obstructive pulmonary disease) Status: Chronic (5) PVD (peripheral vascular disease) Status: Chronic (6) Respiratory failure Status: Acute
[2017-08-28] MEDS: carBAMazepine Chew Tab 100 MG Chew Tab PEG SCH ×3 (05:06→22:49)
[2017-08-28] MEDS: Piperacillin/Tazobact 3.375 GM in Sodium Chloride 100 ML IVPB SCH ×4 (05:06→22:49)
[2017-08-28 05:32] LABS: ABG ALLEN TEST POS; ARTERIAL BLOOD GAS HCO3 20.6 mmol/L (21-28); ARTERIAL BLOOD GAS HEMOGLOBIN 9.3 g/dL (11.7-17.4); ARTERIAL BLOOD GAS O2 SAT 98.4 % (95-98); ARTERIAL BLOOD GAS PCO2 27 mm/Hg (35-45); ARTERIAL BLOOD GAS PH 7.43 (7.35-7.45); ARTERIAL BLOOD GAS PO2 83 mm/Hg (80-100); ARTERIAL BLOOD GAS TCO2 18.7 mmol/L (22-28)
[2017-08-28 06:29] LABS: BASO % 0.2 % (0.0-2.0); EOS % 0.5 % (0.0-4.0); HEMOGLOBIN 9.1 g/dL (12.0-18.0); LYMPH # 0.9 K/uL (1.0-4.3); LYMPH % 12.1 % (20.0-40.0); MEAN CELL VOLUME 84.1 fL (80.0-94.0); MEAN CORPUSCULAR HEMOGLOBIN 28.2 pg (27.0-31.0); MEAN CORPUSCULAR HGB CONC 33.5 g/dL (33.0-37.0); MEAN PLATELET VOLUME 8.3 fL (7.2-11.7); MONO # 1.3 K/uL (0.0-0.8); MONO % 16.4 % (0.0-10.0); NEUT # 5.6 K/uL (1.8-7.0); NEUT % 70.8 % (50.0-75.0); NRBC % 0.1 % (0.0-2.0); RBC 3.21 Mil/uL (4.40-5.90); RED CELL DISTRIBUTION WIDTH 16.6 % (11.5-14.5); WHITE BLOOD COUNT 7.8 K/uL (4.8-10.8)
[2017-08-28] MEDS: Vancomycin 1 gm/NS 200 ml 1 GM/200 ML BAG IVPB SCH ×2 (06:31→18:42)
[2017-08-28 06:44] LABS: BLOOD UREA NITROGEN 11 mg/dL (9-20); GFR AFRICAN-AMERICAN > 60; GFR NON-AFRICAN AMERICAN > 60
[2017-08-28 06:45] LABS: ALB/GLOB RATIO 0.5 (1.0-2.1); ALBUMIN 1.9 g/dL (3.5-5.0); ALT/SGPT 16 U/L (21-72); AST/SGOT 58 U/L (17-59)
[2017-08-28 06:53] LABS: INR 1.3; PROTHROMBIN TIME 14.3 SECONDS (9.7-12.2)
[2017-08-28] MEDS ORDERED: Potassium Phosphate 15 MMOLE in Sodium Chloride 0.9% 250 ML IVPB ONE (08:15)
[2017-08-28] MEDS: Albuterol-Ipratrop 3 mg / 0.5 (3 ml) UD INH SCH ×3 (08:39→19:21)
[2017-08-28] MEDS: Enoxaparin 40 mg Syringe SC SCH (09:05)
[2017-08-28] MEDS: Azithromycin 500 MG in Sodium Chloride 0.9% 250 ML IVPB SCH (09:12)
[2017-08-28] MEDS: Valproic Acid 250 mg/5 ml UD Cup PEG SCH ×4 (09:13→22:49)
--- NOTE | 2017-08-28 09:27 | RAD ---
HISTORY: eval et tube COMPARISON: Portable chest 08/27/2017. FINDINGS: LUNGS: The endotracheal tube appears stable in position approximately 3.8 cm above the marii. Left central venous line terminates at the superior vena cava once again. Prominent right-sided volume loss is reiterated with fibrotic changes in the right apex and bilateral emphysematous changes reiterated. No definite left-sided infiltrate. Bibasilar atelectasis or infiltrates are stable. PLEURA: Bilateral pleural effusions persist. No definite pneumothorax bilaterally. CARDIOVASCULAR: Camarena sulcal is stable. No definite pulmonary vascular congestion. Tortuous straight reiterated. OSSEOUS STRUCTURES: Right clavicular deformity again evident. VISUALIZED UPPER ABDOMEN: Normal. OTHER FINDINGS: None. IMPRESSION: Persistent mild bilateral pleural effusions, and dependent atelectasis and marked right-sided pulmonary volume loss. Endotracheal tube not significantly in position as discussed above.
[2017-08-28] MEDS: Potassium & Sodium Phosphate PO SCH ×2 (09:28→17:24)
--- NOTE | 2017-08-28 10:08 | CP.CCUPN ---
CCU Subjective - Physician Review Subjective (Free Text): No acute events overnight. Failed CPAP trials 08/28/17 10:00 Critical Care Time Spent (in minutes): 35 CCU Objective - Vital Signs / Intake & Output Vital Signs (Last 4 hours): Vital Signs Pulse Resp BP Pulse Ox 08/28/17 07:02 107/57 L 08/28/17 07:01 95 H 25 H 98 08/28/17 06:39 93 H 23 104/58 L 98 Intake and Output (Last 8hrs): Intake & Output 08/27/17 08/28/17 08/28/17 22:59 06:59 14:59 Intake Total 1400 653 107 Output Total 75 250 Balance 1325 403 107 Weight 146 lb 11.2 oz Intake: Intake, IV Amount 400 333 67 Left Distal Port Internal 300 333 67 Jugular Left Medial Port Internal 100 Jugular Tube Feeding 200 320 40 Other 800 Output: Urine 75 250 Urine, Voided 75 250 Other: # Voids Urine, Voided 1 # Bowel Movements 1 1 - Physical Exam Head: Positive for: Atraumatic, Normocephalic Pupils: Positive for: PERRL Mouth: Negative for: Moist Mucous Membranes Respiratory/Chest: Positive for: Rales (B/L ), Other (Intubated). Negative for : Clear to Auscultation Cardiovascular: Positive for: Normal S1, S2. Negative for: Tachycardic Abdomen: Positive for: Normal Bowel Sounds. Negative for: Distention Neurological: Negative for: GCS=15 (10T) Psychiatric: Negative for: Alert - Medications Active Medications: Active Medications Generic Name Dose Route Start Last Admin Trade Name Freq PRN Reason Stop Dose Admin Acetaminophen 650 mg 08/25/17 17:20 Tylenol 650 Mg Supp AK Q4 PRN Fever >100.4 F Albuterol/Ipratropium 3 ml 08/28/17 08:00 Duoneb 3 Mg/0.5 Mg (3 Ml) Ud INH RQ6 AMY Carbamazepine 100 mg 08/24/17 22:00 08/28/17 05:06 Tegretol PEG 100 mg Q8 AMY Administration Enoxaparin Sodium 40 mg 08/24/17 18:00 08/28/17 09:05 Lovenox SC 40 mg DAILY AMY Administration Vancomycin/Sodium Chloride 1 gm in 200 mls @ 133 mls/hr 08/24/17 19:30 06:31 Vancomycin 1 Gm/Ns 200 Ml IVPB 08/29/17 19:31 133 mls/hr Q12H AMY Administration Protocol Azithromycin 500 mg/ Sodium 250 mls @ 250 mls/hr 08/27/17 10:00 08/28/17 09: 12 Chloride IVPB 250 mls/hr DAILY AMY Administration Protocol Piperacillin Sod/Tazobactam 100 mls @ 100 mls/hr 08/27/17 11:00 08/28/17 05: 06 Sod 3.375 gm/ Sodium Chloride IVPB 100 mls/hr Q6H AMY Administration Protocol Potassium Phosphate 15 mmole/ 255 mls @ 42.5 mls/hr 08/28/17 08:15 08/28/17 09:12 Sodium Chloride IVPB 08/28/17 14:14 42.5 mls/hr ONCE ONE Administration Pantoprazole Sodium 40 mg 08/27/17 10:00 08/28/17 09:06 Protonix Inj IVP 40 mg DAILY AMY Administration Potassium Phos/Sodium Phos 1 pkt 08/28/17 10:00 08/28/17 09:28 Neutra-Phos PO 08/29/17 18:01 1 pkt BID AMY Administration Rosuvastatin Calcium 5 mg 08/24/17 22:00 08/27/17 22:41 Crestor PO 5 mg HS AMY Administration Valproate Sodium 250 mg 08/24/17 18:00 08/28/17 09:13 Depakene Oral Soln PEG 250 mg QID AMY Administration - Patient Studies Lab Studies: Microbiology Studies 08/24/17 13:31 Blood Culture - Preliminary Blood NO GROWTH AFTER 3 DAYS 08/24/17 13:31 Blood Culture - Preliminary Blood NO GROWTH AFTER 3 DAYS 08/25/17 14:28 Gram Stain - Final Ankle - Left Wound Culture - Final Coagulase Neg Staphylococcus Lab Studies 08/28/17 08/28/17 08/28/17 Range/Units 06:18 06:18 06:16 WBC 7.8 (4.8-10.8) K/uL RBC 3.21 L (4.40-5.90) Mil/uL Hgb 9.1 L (12.0-18.0) g/dL Hct 27.0 L (35.0-51.0) % MCV 84.1 (80.0-94.0) fL MCH 28.2 (27.0-31.0) pg MCHC 33.5 (33.0-37.0) g/dL RDW 16.6 H (11.5-14.5) % Plt Count 214 (130-400) K/uL MPV 8.3 (7.2-11.7) fL Neut % (Auto) 70.8 (50.0-75.0) % Lymph % (Auto) 12.1 L (20.0-40.0) % Stanly % (Auto) 16.4 H (0.0-10.0) % Eos % (Auto) 0.5 (0.0-4.0) % Baso % (Auto) 0.2 (0.0-2.0) % Neut # (Auto) 5.6 (1.8-7.0) K/uL Lymph # (Auto) 0.9 L (1.0-4.3) K/uL Stanly # (Auto) 1.3 H (0.0-0.8) K/uL Eos # (Auto) 0.0 (0.0-0.7) K/uL Baso # (Auto) 0.0 (0.0-0.2) K/uL PT 14.3 H (9.7-12.2) SECONDS INR 1.3 APTT 31 (21-34) SECONDS Puncture Site pCO2 (35-45) mm/Hg pO2 (80-100) mm/Hg HCO3 (21-28) mmol/L ABG pH (7.35-7.45) ABG Total CO2 (22-28) mmol/L ABG O2 Saturation (95-98) % ABG Base Excess (-2.0-3.0) mmol/L ABG Hemoglobin (11.7-17.4) g/dL ABG Carboxyhemoglobin (0.5-1.5) % POC ABG HHb (Measured) (0.0-5.0) % ABG Methemoglobin (0.0-3.0) % Collin Test A-a O2 Difference mm/Hg Respiratory Index Hgb O2 Saturation (95.0-98.0) % Vent Mode Mechanical Rate FiO2 % Tidal Volume PEEP Sodium 141 (132-148) mmol/L Potassium 3.2 L (3.6-5.2) mmol/L Chloride 111 H (98-107) mmol/L Carbon Dioxide 21 L (22-30) mmol/L Anion Gap 12 (10-20) BUN 11 (9-20) mg/dL Creatinine 0.5 L (0.8-1.5) mg/dL Est GFR ( Amer) > 60 Est GFR (Non-Af Amer) > 60 POC Glucose (mg/dL) (65-110) mg/dL Random Glucose 77 (75-110) mg/dL Calcium 7.0 L (8.6-10.4) mg/dl Phosphorus 1.9 L (2.5-4.5) mg/dL Magnesium 2.0 (1.6-2.3) mg/dL Total Bilirubin 1.3 (0.2-1.3) mg/dL AST 58 (17-59) U/L ALT 16 L D (21-72) U/L Alkaline Phosphatase 102 (38-126) U/L Ammonia (9-33) umol/L Total Protein 5.5 L (6.3-8.3) g/dL Albumin 1.9 L (3.5-5.0) g/dL Globulin 3.6 (2.2-3.9) gm/dL Albumin/Globulin Ratio 0.5 L (1.0-2.1) Valproic Acid (50.0-100.0) ug/mL 08/28/17 08/28/17 08/27/17 Range/Units 05:22 05:02 23:30 WBC (4.8-10.8) K/uL RBC (4.40-5.90) Mil/uL Hgb (12.0-18.0) g/dL Hct (35.0-51.0) % MCV (80.0-94.0) fL MCH (27.0-31.0) pg MCHC (33.0-37.0) g/dL RDW (11.5-14.5) % Plt Count (130-400) K/uL MPV (7.2-11.7) fL Neut % (Auto) (50.0-75.0) % Lymph % (Auto) (20.0-40.0) % Stanly % (Auto) (0.0-10.0) % Eos % (Auto) (0.0-4.0) % Baso % (Auto) (0.0-2.0) % Neut # (Auto) (1.8-7.0) K/uL Lymph # (Auto) (1.0-4.3) K/uL Stanly # (Auto) (0.0-0.8) K/uL Eos # (Auto) (0.0-0.7) K/uL Baso # (Auto) (0.0-0.2) K/uL PT (9.7-12.2) SECONDS INR APTT (21-34) SECONDS Puncture Site Rr pCO2 27 L (35-45) mm/Hg pO2 83 (80-100) mm/Hg HCO3 20.6 L (21-28) mmol/L ABG pH 7.43 (7.35-7.45) ABG Total CO2 18.7 L (22-28) mmol/L ABG O2 Saturation 98.4 H (95-98) % ABG Base Excess -5.5 L (-2.0-3.0) mmol/L ABG Hemoglobin 9.3 L (11.7-17.4) g/dL ABG Carboxyhemoglobin 2.2 H (0.5-1.5) % POC ABG HHb (Measured) 1.5 (0.0-5.0) % ABG Methemoglobin 1.7 (0.0-3.0) % Collin Test Pos A-a O2 Difference 133.0 mm/Hg Respiratory Index 1.6 Hgb O2 Saturation 94.6 L (95.0-98.0) % Vent Mode Prvc Mechanical Rate 14 FiO2 35.0 % Tidal Volume 450 PEEP 5 Sodium (132-148) mmol/L Potassium (3.6-5.2) mmol/L Chloride (98-107) mmol/L Carbon Dioxide (22-30) mmol/L Anion Gap (10-20) BUN (9-20) mg/dL Creatinine (0.8-1.5) mg/dL Est GFR ( Amer) Est GFR (Non-Af Amer) POC Glucose (mg/dL) 90 96 (65-110) mg/dL Random Glucose (75-110) mg/dL Calcium (8.6-10.4) mg/dl Phosphorus (2.5-4.5) mg/dL Magnesium (1.6-2.3) mg/dL Total Bilirubin (0.2-1.3) mg/dL AST (17-59) U/L ALT (21-72) U/L Alkaline Phosphatase (38-126) U/L Ammonia (9-33) umol/L Total Protein (6.3-8.3) g/dL Albumin (3.5-5.0) g/dL Globulin (2.2-3.9) gm/dL Albumin/Globulin Ratio (1.0-2.1) Valproic Acid (50.0-100.0) ug/mL 08/27/17 08/27/17 08/27/17 Range/Units 17:43 11:32 11:32 WBC (4.8-10.8) K/uL RBC (4.40-5.90) Mil/uL Hgb (12.0-18.0) g/dL Hct (35.0-51.0) % MCV (80.0-94.0) fL MCH (27.0-31.0) pg MCHC (33.0-37.0) g/dL RDW (11.5-14.5) % Plt Count (130-400) K/uL MPV (7.2-11.7) fL Neut % (Auto) (50.0-75.0) % Lymph % (Auto) (20.0-40.0) % Stanly % (Auto) (0.0-10.0) % Eos % (Auto) (0.0-4.0) % Baso % (Auto) (0.0-2.0) % Neut # (Auto) (1.8-7.0) K/uL Lymph # (Auto) (1.0-4.3) K/uL Stanly # (Auto) (0.0-0.8) K/uL Eos # (Auto) (0.0-0.7) K/uL Baso # (Auto) (0.0-0.2) K/uL PT (9.7-12.2) SECONDS INR APTT (21-34) SECONDS Puncture Site pCO2 (35-45) mm/Hg pO2 (80-100) mm/Hg HCO3 (21-28) mmol/L ABG pH (7.35-7.45) ABG Total CO2 (22-28) mmol/L ABG O2 Saturation (95-98) % ABG Base Excess (-2.0-3.0) mmol/L ABG Hemoglobin (11.7-17.4) g/dL ABG Carboxyhemoglobin (0.5-1.5) % POC ABG HHb (Measured) (0.0-5.0) % ABG Methemoglobin (0.0-3.0) % Collin Test A-a O2 Difference mm/Hg Respiratory Index Hgb O2 Saturation (95.0-98.0) % Vent Mode Mechanical Rate FiO2 % Tidal Volume PEEP Sodium (132-148) mmol/L Potassium (3.6-5.2) mmol/L Chloride (98-107) mmol/L Carbon Dioxide (22-30) mmol/L Anion Gap (10-20) BUN (9-20) mg/dL Creatinine (0.8-1.5) mg/dL Est GFR ( Amer) Est GFR (Non-Af Amer) POC Glucose (mg/dL) 126 H (65-110) mg/dL Random Glucose (75-110) mg/dL Calcium (8.6-10.4) mg/dl Phosphorus (2.5-4.5) mg/dL Magnesium (1.6-2.3) mg/dL Total Bilirubin (0.2-1.3) mg/dL AST (17-59) U/L ALT (21-72) U/L Alkaline Phosphatase (38-126) U/L Ammonia 11 (9-33) umol/L Total Protein (6.3-8.3) g/dL Albumin (3.5-5.0) g/dL Globulin (2.2-3.9) gm/dL Albumin/Globulin Ratio (1.0-2.1) Valproic Acid 46.4 L (50.0-100.0) ug/mL 08/27/17 Range/Units 11:16 WBC (4.8-10.8) K/uL RBC (4.40-5.90) Mil/uL Hgb (12.0-18.0) g/dL Hct (35.0-51.0) % MCV (80.0-94.0) fL MCH (27.0-31.0) pg MCHC (33.0-37.0) g/dL RDW (11.5-14.5) % Plt Count (130-400) K/uL MPV (7.2-11.7) fL Neut % (Auto) (50.0-75.0) % Lymph % (Auto) (20.0-40.0) % Stanly % (Auto) (0.0-10.0) % Eos % (Auto) (0.0-4.0) % Baso % (Auto) (0.0-2.0) % Neut # (Auto) (1.8-7.0) K/uL Lymph # (Auto) (1.0-4.3) K/uL Stanly # (Auto) (0.0-0.8) K/uL Eos # (Auto) (0.0-0.7) K/uL Baso # (Auto) (0.0-0.2) K/uL PT (9.7-12.2) SECONDS INR APTT (21-34) SECONDS Puncture Site pCO2 (35-45) mm/Hg pO2 (80-100) mm/Hg HCO3 (21-28) mmol/L ABG pH (7.35-7.45) ABG Total CO2 (22-28) mmol/L ABG O2 Saturation (95-98) % ABG Base Excess (-2.0-3.0) mmol/L ABG Hemoglobin (11.7-17.4) g/dL ABG Carboxyhemoglobin (0.5-1.5) % POC ABG HHb (Measured) (0.0-5.0) % ABG Methemoglobin (0.0-3.0) % Collin Test A-a O2 Difference mm/Hg Respiratory Index Hgb O2 Saturation (95.0-98.0) % Vent Mode Mechanical Rate FiO2 % Tidal Volume PEEP Sodium (132-148) mmol/L Potassium (3.6-5.2) mmol/L Chloride (98-107) mmol/L Carbon Dioxide (22-30) mmol/L Anion Gap (10-20) BUN (9-20) mg/dL Creatinine (0.8-1.5) mg/dL Est GFR ( Amer) Est GFR (Non-Af Amer) POC Glucose (mg/dL) 116 H (65-110) mg/dL Random Glucose (75-110) mg/dL Calcium (8.6-10.4) mg/dl Phosphorus (2.5-4.5) mg/dL Magnesium (1.6-2.3) mg/dL Total Bilirubin (0.2-1.3) mg/dL AST (17-59) U/L ALT (21-72) U/L Alkaline Phosphatase (38-126) U/L Ammonia (9-33) umol/L Total Protein (6.3-8.3) g/dL Albumin (3.5-5.0) g/dL Globulin (2.2-3.9) gm/dL Albumin/Globulin Ratio (1.0-2.1) Valproic Acid (50.0-100.0) ug/mL Laboratory Results - last 24 hr 08/27/17 08/27/17 08/27/17 11:16 11:32 11:32 WBC RBC Hgb Hct MCV MCH MCHC RDW Plt Count MPV Neut % (Auto) Lymph % (Auto) Stanly % (Auto) Eos % (Auto) Baso % (Auto) Neut # (Auto) Lymph # (Auto) Stanly # (Auto) Eos # (Auto) Baso # (Auto) PT INR APTT Puncture Site pCO2 pO2 HCO3 ABG pH ABG Total CO2 ABG O2 Saturation ABG Base Excess ABG Hemoglobin ABG Carboxyhemoglobin POC ABG HHb (Measured) ABG Methemoglobin Coliln Test A-a O2 Difference Respiratory Index Hgb O2 Saturation Vent Mode Mechanical Rate FiO2 Tidal Volume PEEP Sodium Potassium Chloride Carbon Dioxide Anion Gap BUN Creatinine Est GFR ( Amer) Est GFR (Non-Af Amer) POC Glucose (mg/dL) 116 H Random Glucose Calcium Phosphorus Magnesium Total Bilirubin AST ALT Alkaline Phosphatase Ammonia 11 Total Protein Albumin Globulin Albumin/Globulin Ratio Valproic Acid 46.4 L 08/27/17 08/27/17 08/28/17 17:43 23:30 05:02 WBC RBC Hgb Hct MCV MCH MCHC RDW Plt Count MPV Neut % (Auto) Lymph % (Auto) Stanly % (Auto) Eos % (Auto) Baso % (Auto) Neut # (Auto) Lymph # (Auto) Stanly # (Auto) Eos # (Auto) Baso # (Auto) PT INR APTT Puncture Site pCO2 pO2 HCO3 ABG pH ABG Total CO2 ABG O2 Saturation ABG Base Excess ABG Hemoglobin ABG Carboxyhemoglobin POC ABG HHb (Measured) ABG Methemoglobin Collin Test A-a O2 Difference Respiratory Index Hgb O2 Saturation Vent Mode Mechanical Rate FiO2 Tidal Volume PEEP Sodium Potassium Chloride Carbon Dioxide Anion Gap BUN Creatinine Est GFR ( Amer) Est GFR (Non-Af Amer) POC Glucose (mg/dL) 126 H 96 90 Random Glucose Calcium Phosphorus Magnesium Total Bilirubin AST ALT Alkaline Phosphatase Ammonia Total Protein Albumin Globulin Albumin/Globulin Ratio Valproic Acid 08/28/17 08/28/17 08/28/17 05:22 06:16 06:18 WBC 7.8 RBC 3.21 L Hgb 9.1 L Hct 27.0 L MCV 84.1 MCH 28.2 MCHC 33.5 RDW 16.6 H Plt Count 214 MPV 8.3 Neut % (Auto) 70.8 Lymph % (Auto) 12.1 L Stanly % (Auto) 16.4 H Eos % (Auto) 0.5 Baso % (Auto) 0.2 Neut # (Auto) 5.6 Lymph # (Auto) 0.9 L Stanly # (Auto) 1.3 H Eos # (Auto) 0.0 Baso # (Auto) 0.0 PT INR APTT Puncture Site Rr pCO2 27 L pO2 83 HCO3 20.6 L ABG pH 7.43 ABG Total CO2 18.7 L ABG O2 Saturation 98.4 H ABG Base Excess -5.5 L ABG Hemoglobin 9.3 L ABG Carboxyhemoglobin 2.2 H POC ABG HHb (Measured) 1.5 ABG Methemoglobin 1.7 Collin Test Pos A-a O2 Difference 133.0 Respiratory Index 1.6 Hgb O2 Saturation 94.6 L Vent Mode Prvc Mechanical Rate 14 FiO2 35.0 Tidal Volume 450 PEEP 5 Sodium 141 Potassium 3.2 L Chloride 111 H Carbon Dioxide 21 L Anion Gap 12 BUN 11 Creatinine 0.5 L Est GFR ( Amer) > 60 Est GFR (Non-Af Amer) > 60 POC Glucose (mg/dL) Random Glucose 77 Calcium 7.0 L Phosphorus 1.9 L Magnesium 2.0 Total Bilirubin 1.3 AST 58 ALT 16 L D Alkaline Phosphatase 102 Ammonia Total Protein 5.5 L Albumin 1.9 L Globulin 3.6 Albumin/Globulin Ratio 0.5 L Valproic Acid 08/28/17 06:18 WBC RBC Hgb Hct MCV MCH MCHC RDW Plt Count MPV Neut % (Auto) Lymph % (Auto) Stanly % (Auto) Eos % (Auto) Baso % (Auto) Neut # (Auto) Lymph # (Auto) Stanly # (Auto) Eos # (Auto) Baso # (Auto) PT 14.3 H INR 1.3 APTT 31 Puncture Site pCO2 pO2 HCO3 ABG pH ABG Total CO2 ABG O2 Saturation ABG Base Excess ABG Hemoglobin ABG Carboxyhemoglobin POC ABG HHb (Measured) ABG Methemoglobin Collin Test A-a O2 Difference Respiratory Index Hgb O2 Saturation Vent Mode Mechanical Rate FiO2 Tidal Volume PEEP Sodium Potassium Chloride Carbon Dioxide Anion Gap BUN Creatinine Est GFR ( Amer) Est GFR (Non-Af Amer) POC Glucose (mg/dL) Random Glucose Calcium Phosphorus Magnesium Total Bilirubin AST ALT Alkaline Phosphatase Ammonia Total Protein Albumin Globulin Albumin/Globulin Ratio Valproic Acid Fingerstick Blood Sugar Results: 90 Assessment/Plan - Assessment and Plan (Free Text) Assessment: 77 y/o male with PMHx of Arthritis, Asthma, COPD, Severe Dementia, HTN, Pneumonia, Seizures, TIA, and Right AKA presents from residential due to fever dx with lobar pneumonia and intubated for airway protection -Hypoxic and hypercapneic respiratory failure:continue ventilation to keep spo2 >92 and pH b/w 7.35-7.45, continue bronchodilators, (+)thick secretoins, good pulmonary toilet, failed CPAP trials today, CXR reveals worsening congestion, lasix today -Lobar Pneumonia: afebrile, continue abx, mycoplasm igM positive, f/u sputum culture, lactic normalized, currently on azithro and vanco, check vanco trough -check and replace electrolytes -h/o seizures: valproic acid level low yesterday, bolues, no change in mental status, EEg and neuro exam pending, no seizures clinically, peding valproic acid level -anemia: suspect anemia of chronic disease, pending iron profile, continue to monitor transfuse PRN -continue tube feeds -ISS q6hrs, ISS -continue DVT/PUD ppx -Left IJ (poor iv access) no garcia cc time spent 35 minutes d/w ICU team/nurse - Date & Time Date: 08/28/17 Time: 08:35
--- NOTE | 2017-08-28 12:13 | CP.PCM.PN ---
Subjective - Date & Time of Evaluation Date of Evaluation: 08/28/17 Time of Evaluation: 12:13 - Subjective Subjective: Pulmonary Follow up Covering Dr. [place] The Patient was seen and examined at the bedside, Medical records reviewed, and management issues were discussed and formulated with the house staff. Events reviewed Remains orally intubated, mechanically vented, Patient did not tolerate vent weaning trial today On PRVC: 40%Fi02, 14 RR, 450 TV, 5 PEEP Awake, comfortable, + generalized weakness. Denies any fevers, chills, SOB, chest pain or abdominal pain. Objective - Vital Signs/Intake and Output Vital Signs (last 24 hours): Temp Pulse Resp BP Pulse Ox 98.2 F 95 H 25 H 94/53 L 98 08/28/17 04:00 08/28/17 07:01 08/28/17 07:01 08/28/17 11:10 08/28/17 07:01 Intake and Output: 08/28/17 08/28/17 06:59 18:59 Intake Total 953 107 Output Total 250 Balance 703 107 - Medications Medications: Current Medications Acetaminophen (Tylenol 650 Mg Supp) 650 mg MD Q4 PRN PRN Reason: Fever >100.4 F Albuterol/Ipratropium (Duoneb 3 Mg/0.5 Mg (3 Ml) Ud) 3 ml INH RQ6 AMY Carbamazepine (Tegretol) 100 mg PEG Q8 [facility] Last Admin: 08/28/17 05:06 Dose: 100 mg Enoxaparin Sodium (Lovenox) 40 mg SC DAILY [facility] Last Admin: 08/28/17 09:05 Dose: 40 mg Vancomycin/Sodium Chloride (Vancomycin 1 Gm/Ns 200 Ml) 1 gm in 200 mls @ 133 mls/hr IVPB Q12H AMY PRN Reason: Protocol Stop: 08/29/17 19:31 Last Admin: 08/28/17 06:31 Dose: 133 mls/hr Azithromycin 500 mg/ Sodium (Chloride) 250 mls @ 250 mls/hr IVPB DAILY AMY PRN Reason: Protocol Last Admin: 08/28/17 09:12 Dose: 250 mls/hr Piperacillin Sod/Tazobactam (Sod 3.375 gm/ Sodium Chloride) 100 mls @ 100 mls/ hr IVPB Q6H AMY PRN Reason: Protocol Last Admin: 08/28/17 11:12 Dose: 100 mls/hr Potassium Phosphate 15 mmole/ (Sodium Chloride) 255 mls @ 42.5 mls/hr IVPB ONCE ONE Stop: 08/28/17 14:14 Last Admin: 08/28/17 09:12 Dose: 42.5 mls/hr Pantoprazole Sodium (Protonix Inj) 40 mg IVP DAILY [facility] Last Admin: 08/28/17 09:06 Dose: 40 mg Potassium Phos/Sodium Phos (Neutra-Phos) 1 pkt PO BID [facility] Stop: 08/29/17 18:01 Last Admin: 08/28/17 09:28 Dose: 1 pkt Rosuvastatin Calcium (Crestor) 5 mg PO HS [facility] Last Admin: 08/27/17 22:41 Dose: 5 mg Valproate Sodium (Depakene Oral Soln) 250 mg PEG QID [facility] Last Admin: 08/28/17 09:13 Dose: 250 mg - Labs Labs: 08/28/17 06:18 08/28/17 06:16 PT 14.3 SECONDS (9.7-12.2) H 08/28/17 06:18 INR 1.3 08/28/17 06:18 APTT 31 SECONDS (21-34) 08/28/17 06:18 - Constitutional Appears: Well, No Acute Distress, Chronically Ill - Head Exam Head Exam: ATRAUMATIC, NORMAL INSPECTION - Eye Exam Eye Exam: Conjunctival injection, EOMI. absent: Normal appearance, Nystagmus Pupil Exam: NORMAL ACCOMODATION, PERRL - Neck Exam Neck Exam: Full ROM, Normal Inspection. absent: Lymphadenopathy, Meningismus - Respiratory Exam Respiratory Exam: Decreased Breath Sounds, Rhonchi. absent: Accessory Muscle Use, Chest Wall Tenderness, Clear to Ausculation Bilateral, Rales, Wheezes - Cardiovascular Exam Cardiovascular Exam: REGULAR RHYTHM, RRR, +S1, +S2. absent: JVD, Murmur - GI/Abdominal Exam GI & Abdominal Exam: Distended, Soft, Normal Bowel Sounds. absent: Firm, Guarding, Rigid - Extremities Exam Extremities Exam: Full ROM, Pedal Edema. absent: Normal Inspection (Redness noted on left upper mitchell) Assessment and Plan (1) Respiratory failure Assessment & Plan: CXR (Admission): Stable postsurgical changes in the right lung with low lung volume and shift of mediastinal to the right. No acute findings. A: Hypoxic Res. Failure, Asthma, COPD Intubated Emergently: On PRVC: 40%Fi02, 14 RR, 450 TV, 5 PEEP DuoNebs Schedule Wean Fi02 as tolerated CPAP Trial. Status: Acute (2) COPD (chronic obstructive pulmonary disease) Status: Chronic (3) Pneumonia Assessment & Plan: Blood Cultures - NEGATIVE Urine Cultures - NEGATIVE Sputum Cultures - Normal florw MRSA 2gm Cefepime given in ED Cont. Zosyn and Vanc. Status: Acute (4) Anemia Assessment & Plan: No evidence iof active bleeding S/P 1 Unit of PRBC Status: Acute (5) Sepsis Assessment & Plan: As per pneumonia Status: Acute (6) Failure to thrive Assessment & Plan: Tolerating Tube Feeding - Jevity 1.5 Status: Acute - Assessment and Plan (Free Text) Assessment: Protonix Lovenox
[2017-08-28 12:49] LABS: VALPROIC ACID 55.1 ug/mL (50.0-100.0); VANCOMYCIN TROUGH 25.6 ug/mL (5.0-10.0)
[2017-08-29] MEDS: Albuterol-Ipratrop 3 mg / 0.5 (3 ml) UD INH SCH ×4 (01:42→19:49)
[2017-08-29] MEDS: Piperacillin/Tazobact 3.375 GM in Sodium Chloride 100 ML IVPB SCH ×4 (04:03→22:04)
[2017-08-29 05:51] LABS: ABG ALLEN TEST POS; ARTERIAL BLOOD GAS HCO3 21.1 mmol/L (21-28); ARTERIAL BLOOD GAS O2 SAT 98.8 % (95-98); ARTERIAL BLOOD GAS PCO2 27 mm/Hg (35-45); ARTERIAL BLOOD GAS PH 7.43 (7.35-7.45); ARTERIAL BLOOD GAS PO2 88 mm/Hg (80-100); ARTERIAL BLOOD GAS TCO2 18.7 mmol/L (22-28)
[2017-08-29] MEDS: carBAMazepine Chew Tab 100 MG Chew Tab PEG SCH ×3 (06:25→21:29)
[2017-08-29 06:32] LABS: BASO % 0.2 % (0.0-2.0); EOS % 0.1 % (0.0-4.0); LYMPH % 12.7 % (20.0-40.0); MEAN CELL VOLUME 84.1 fL (80.0-94.0); MEAN CORPUSCULAR HGB CONC 33.4 g/dL (33.0-37.0); MEAN PLATELET VOLUME 8.1 fL (7.2-11.7); MONO # 1.8 K/uL (0.0-0.8); MONO % 22.3 % (0.0-10.0); NEUT # 5.2 K/uL (1.8-7.0); NEUT % 64.7 % (50.0-75.0); PLATELET COUNT 199 K/uL (130-400); RED CELL DISTRIBUTION WIDTH 16.6 % (11.5-14.5)
[2017-08-29] MEDS: Vancomycin 1 gm/NS 200 ml 1 GM/200 ML BAG IVPB SCH (06:33)
[2017-08-29 06:37] LABS: INR 1.5; PROTHROMBIN TIME 16.3 SECONDS (9.7-12.2)
[2017-08-29 06:44] LABS: ALB/GLOB RATIO 0.6 (1.0-2.1); ALBUMIN 2.1 g/dL (3.5-5.0); ALT/SGPT 15 U/L (21-72); AST/SGOT 40 U/L (17-59); BLOOD UREA NITROGEN 10 mg/dL (9-20); CALCIUM 6.8 mg/dl (8.6-10.4); GFR AFRICAN-AMERICAN > 60; GFR NON-AFRICAN AMERICAN > 60
--- NOTE | 2017-08-29 07:29 | CP.PCM.PN ---
Subjective - Date & Time of Evaluation Date of Evaluation: 08/28/17 Time of Evaluation: 18:00 - Subjective Subjective: Pt is seen and evalauted, is sedated, on antibiotics , wound care, physical therapy, afebrile, NAD, no nausea, vomitting Objective - Vital Signs/Intake and Output Vital Signs (last 24 hours): Temp Pulse Resp BP Pulse Ox 99.7 F H 88 25 H 136/67 98 08/29/17 04:00 08/29/17 07:00 08/29/17 07:00 08/29/17 07:00 08/29/17 07:00 Intake and Output: 08/29/17 08/29/17 06:59 18:59 Intake Total 880 107 Output Total 975 Balance -95 107 - Medications Medications: Current Medications Acetaminophen (Tylenol 650 Mg Supp) 650 mg NV Q4 PRN PRN Reason: Fever >100.4 F Albuterol/Ipratropium (Duoneb 3 Mg/0.5 Mg (3 Ml) Ud) 3 ml INH RQ6 [facility] Last Admin: 08/29/17 01:42 Dose: 3 ml Carbamazepine (Tegretol) 100 mg PEG Q8 [facility] Last Admin: 08/29/17 06:25 Dose: 100 mg Enoxaparin Sodium (Lovenox) 40 mg SC DAILY [facility] Last Admin: 08/28/17 09:05 Dose: 40 mg Vancomycin/Sodium Chloride (Vancomycin 1 Gm/Ns 200 Ml) 1 gm in 200 mls @ 133 mls/hr IVPB Q12H [facility] PRN Reason: Protocol Stop: 08/29/17 19:31 Last Admin: 08/29/17 06:33 Dose: 133 mls/hr Azithromycin 500 mg/ Sodium (Chloride) 250 mls @ 250 mls/hr IVPB DAILY [facility] PRN Reason: Protocol Last Admin: 08/28/17 09:12 Dose: 250 mls/hr Piperacillin Sod/Tazobactam (Sod 3.375 gm/ Sodium Chloride) 100 mls @ 100 mls/ hr IVPB Q6H [facility] PRN Reason: Protocol Last Admin: 08/29/17 04:03 Dose: 100 mls/hr Pantoprazole Sodium (Protonix Susp) 40 mg PO DAILY [facility] Potassium Phos/Sodium Phos (Neutra-Phos) 1 pkt PO BID [facility] Stop: 08/29/17 18:01 Last Admin: 08/28/17 17:24 Dose: 1 pkt Rosuvastatin Calcium (Crestor) 5 mg PO HS [facility] Last Admin: 08/28/17 22:49 Dose: 5 mg Valproate Sodium (Depakene Oral Soln) 250 mg PEG QID [facility] Last Admin: 08/28/17 22:49 Dose: 250 mg - Labs Labs: 08/29/17 06:22 08/29/17 06:19 PT 16.3 SECONDS (9.7-12.2) H 08/29/17 06:22 INR 1.5 08/29/17 06:22 APTT 26 SECONDS (21-34) D 08/29/17 06:22 - Constitutional Appears: No Acute Distress, Chronically Ill - Head Exam Head Exam: ATRAUMATIC, NORMAL INSPECTION, NORMOCEPHALIC - Eye Exam Eye Exam: EOMI, Normal appearance, PERRL Pupil Exam: NORMAL ACCOMODATION, PERRL - Respiratory Exam Respiratory Exam: Decreased Breath Sounds, Rhonchi - Cardiovascular Exam Cardiovascular Exam: REGULAR RHYTHM, +S1, +S2. absent: Murmur - GI/Abdominal Exam GI & Abdominal Exam: Soft, Normal Bowel Sounds. absent: Tenderness Assessment and Plan (1) Sepsis Status: Acute (2) Fever Status: Acute (3) Seizure disorder Status: Acute (4) COPD (chronic obstructive pulmonary disease) Status: Chronic (5) PVD (peripheral vascular disease) Status: Chronic (6) Respiratory failure Assessment & Plan: on MV Status: Acute
--- NOTE | 2017-08-29 07:29 | CP.PCM.PN ---
Subjective - Date & Time of Evaluation Date of Evaluation: 08/28/17 Time of Evaluation: 19:00 - Subjective Subjective: Pt seen and examined at bedside. sedated on MV FiO2 of 35% Objective - Vital Signs/Intake and Output Vital Signs (last 24 hours): Temp Pulse Resp BP Pulse Ox 99.7 F H 88 25 H 136/67 98 08/29/17 04:00 08/29/17 07:00 08/29/17 07:00 08/29/17 07:00 08/29/17 07:00 Intake and Output: 08/29/17 08/29/17 06:59 18:59 Intake Total 880 107 Output Total 975 Balance -95 107 - Medications Medications: Current Medications Acetaminophen (Tylenol 650 Mg Supp) 650 mg [place] Q4 PRN PRN Reason: Fever >100.4 F Albuterol/Ipratropium (Duoneb 3 Mg/0.5 Mg (3 Ml) Ud) 3 ml INH RQ6 [facility] Last Admin: 08/29/17 01:42 Dose: 3 ml Carbamazepine (Tegretol) 100 mg PEG Q8 [facility] Last Admin: 08/29/17 06:25 Dose: 100 mg Enoxaparin Sodium (Lovenox) 40 mg SC DAILY [facility] Last Admin: 08/28/17 09:05 Dose: 40 mg Vancomycin/Sodium Chloride (Vancomycin 1 Gm/Ns 200 Ml) 1 gm in 200 mls @ 133 mls/hr IVPB Q12H [facility] PRN Reason: Protocol Stop: 08/29/17 19:31 Last Admin: 08/29/17 06:33 Dose: 133 mls/hr Azithromycin 500 mg/ Sodium (Chloride) 250 mls @ 250 mls/hr IVPB DAILY [facility] PRN Reason: Protocol Last Admin: 08/28/17 09:12 Dose: 250 mls/hr Piperacillin Sod/Tazobactam (Sod 3.375 gm/ Sodium Chloride) 100 mls @ 100 mls/ hr IVPB Q6H [facility] PRN Reason: Protocol Last Admin: 08/29/17 04:03 Dose: 100 mls/hr Pantoprazole Sodium (Protonix Susp) 40 mg PO DAILY [facility] Potassium Phos/Sodium Phos (Neutra-Phos) 1 pkt PO BID [facility] Stop: 08/29/17 18:01 Last Admin: 08/28/17 17:24 Dose: 1 pkt Rosuvastatin Calcium (Crestor) 5 mg PO HS [facility] Last Admin: 08/28/17 22:49 Dose: 5 mg Valproate Sodium (Depakene Oral Soln) 250 mg PEG QID [facility] Last Admin: 08/28/17 22:49 Dose: 250 mg - Labs Labs: 08/29/17 06:22 08/29/17 06:19 PT 16.3 SECONDS (9.7-12.2) H 08/29/17 06:22 INR 1.5 08/29/17 06:22 APTT 26 SECONDS (21-34) D 08/29/17 06:22 - Constitutional Appears: No Acute Distress, Chronically Ill - Head Exam Head Exam: ATRAUMATIC, NORMAL INSPECTION, NORMOCEPHALIC - Eye Exam Eye Exam: EOMI, Normal appearance, PERRL Pupil Exam: NORMAL ACCOMODATION, PERRL - Respiratory Exam Respiratory Exam: Decreased Breath Sounds, Rales - Cardiovascular Exam Cardiovascular Exam: REGULAR RHYTHM, +S1, +S2. absent: Murmur - GI/Abdominal Exam GI & Abdominal Exam: Diminished Bowel Sounds Assessment and Plan (1) Sepsis Status: Acute (2) Fever Status: Acute (3) Seizure disorder Status: Acute (4) COPD (chronic obstructive pulmonary disease) Status: Chronic (5) PVD (peripheral vascular disease) Status: Chronic (6) Respiratory failure Status: Acute
[2017-08-29] MEDS ORDERED: Potassium Phosphate 15 MMOLE in Dextrose 5% In Water 250 ML IVPB ONE (08:26)
[2017-08-29] MEDS ORDERED: Magnesium Sulfate 1 gm in D5W 1 GM/100 ML BAG IVPB ONE (08:34)
[2017-08-29 08:46] LABS: ANISOCYTOSIS SLIGHT; BANDS 1 % (0-2); EOSINOPHIL 1 % (0-4); LYMPHOCYTE 14 % (20-40); METAMYELOCYTE 1 % (0-0); MONOCYTE 19 % (0-10); NEUTROPHIL 64 % (50-75); PLATELET ESTIMATE NORMAL (NORMAL); TOTAL CELLS COUNTED 100
[2017-08-29 08:47] LABS: HYPOCHROMIC SLIGHT; POLYCHROMIC SLIGHT
[2017-08-29] MEDS: Potassium Chloride 20 mEq/15 ml LIQ UD PO SCH ×3 (08:55→20:01)
--- NOTE | 2017-08-29 09:13 | RAD ---
HISTORY: eval et tube COMPARISON: Portable chest 08/28/2017. FINDINGS: LUNGS: Endotracheal tube is unchanged in position as well as left central venous catheter. Patient rotated toward the left in this exam. Prior breast moreno at the inferior left lung zone or carotid no definite alveolitis is appreciable bilaterally. Chronic volume loss right chest with prominent right apical fibrosis reiterated. Diminished left pleural effusion is likely. Mild right pleural effusion persists. No pneumothorax bilaterally. PLEURA: No significant pleural effusion identified, no pneumothorax apparent. CARDIOVASCULAR: Cardiovascular silhouette appears stable. No pulmonary vascular congestion. Aortic ectasis reiterated. OSSEOUS STRUCTURES: Right clavicular deformity reiterated. VISUALIZED UPPER ABDOMEN: Normal. OTHER FINDINGS: None. IMPRESSION: There is no pleural effusion is suggested with moderate pleural effusion persisting. Left basilar crowding of the bronchovascular markings is appreciated without definitive infiltrate. Fibrotic changes are again seen the right apex with multifocal right rib fixates the devices again noted as well as right clavicle deformity.
[2017-08-29] MEDS: Potassium & Sodium Phosphate PO SCH ×2 (09:28→17:08)
[2017-08-29] MEDS: Pantoprazole 40 mg Susp UD PO SCH (09:28)
[2017-08-29] MEDS: Enoxaparin 40 mg Syringe SC SCH (09:28)
[2017-08-29] MEDS: Azithromycin 500 MG in Sodium Chloride 0.9% 250 ML IVPB SCH (09:29)
[2017-08-29] MEDS: Valproic Acid 250 mg/5 ml UD Cup PEG SCH ×4 (09:46→21:30)
[2017-08-29] MEDS ORDERED: Potassium Phosphate 15 MMOLE in Sodium Chloride 0.9% 250 ML IVPB ONE (10:00)
--- NOTE | 2017-08-29 11:33 | CP.PCM.PN ---
Subjective - Date & Time of Evaluation Date of Evaluation: 08/29/17 Time of Evaluation: 08:20 - Subjective Subjective: Patient remained afebriel overnight, (+)thick secretions from ET tube, culture no growth Objective - Vital Signs/Intake and Output Vital Signs (last 24 hours): Temp Pulse Resp BP Pulse Ox 98.8 F 94 H 25 H 104/55 L 93 L 08/29/17 08:00 08/29/17 10:02 08/29/17 10:02 08/29/17 10:02 08/29/17 10:02 Intake and Output: 08/29/17 08/29/17 06:59 18:59 Intake Total 880 769 Output Total 975 120 Balance -95 649 - Medications Medications: Current Medications Acetaminophen (Tylenol 650 Mg Supp) 650 mg [place] Q4 PRN PRN Reason: Fever >100.4 F Albuterol/Ipratropium (Duoneb 3 Mg/0.5 Mg (3 Ml) Ud) 3 ml INH RQ6 [facility] Last Admin: 08/29/17 07:40 Dose: 3 ml Bisacodyl (Dulcolax) 10 mg DE ONCE PRN PRN Reason: consipation Carbamazepine (Tegretol) 100 mg PEG Q8 [facility] Last Admin: 08/29/17 06:25 Dose: 100 mg Enoxaparin Sodium (Lovenox) 40 mg SC DAILY [facility] Last Admin: 08/29/17 09:28 Dose: 40 mg Azithromycin 500 mg/ Sodium (Chloride) 250 mls @ 250 mls/hr IVPB DAILY [facility] PRN Reason: Protocol Last Admin: 08/29/17 09:29 Dose: 250 mls/hr Piperacillin Sod/Tazobactam (Sod 3.375 gm/ Sodium Chloride) 100 mls @ 100 mls/ hr IVPB Q6H [facility] PRN Reason: Protocol Last Admin: 08/29/17 11:05 Dose: 100 mls/hr Potassium Phosphate 15 mmole/ (Sodium Chloride) 255 mls @ 42.5 mls/hr IVPB ONCE ONE Stop: 08/29/17 15:59 Last Admin: 08/29/17 09:45 Dose: 42.5 mls/hr Pantoprazole Sodium (Protonix Susp) 40 mg PO DAILY [facility] Last Admin: 08/29/17 09:28 Dose: 40 mg Potassium Chloride (Potassium Chloride Oral Soln) 40 meq PO Q6H [facility] Stop: 08/30/17 02:31 Last Admin: 08/29/17 08:55 Dose: 40 meq Potassium Phos/Sodium Phos (Neutra-Phos) 1 pkt PO BID [facility] Stop: 08/29/17 18:01 Last Admin: 08/29/17 09:28 Dose: 1 pkt Rosuvastatin Calcium (Crestor) 5 mg PO HS [facility] Last Admin: 08/28/17 22:49 Dose: 5 mg Valproate Sodium (Depakene Oral Soln) 250 mg PEG QID [facility] Last Admin: 08/29/17 09:46 Dose: 250 mg - Labs Labs: 08/29/17 06:22 08/29/17 06:19 PT 16.3 SECONDS (9.7-12.2) H 08/29/17 06:22 INR 1.5 08/29/17 06:22 APTT 26 SECONDS (21-34) D 08/29/17 06:22 - Constitutional Appears: Non-toxic, No Acute Distress - Head Exam Additional comments: (+) et tube - Respiratory Exam Respiratory Exam: Decreased Breath Sounds, Rhonchi, NORMAL BREATHING PATTERN. absent: Wheezes, Respiratory Distress - Cardiovascular Exam Cardiovascular Exam: +S1, +S2, Murmur - GI/Abdominal Exam GI & Abdominal Exam: Normal Bowel Sounds - Extremities Exam Extremities Exam: Pedal Edema - Neurological Exam Neurological Exam: Awake - Skin Skin Exam: Warm Assessment and Plan - Assessment and Plan (Free Text) Assessment: 77 y/o male with PMHx of Arthritis, Asthma, COPD, Severe Dementia, HTN, Pneumonia, Seizures, TIA, and Right AKA presents from group home due to fever dx with lobar pneumonia and intubated for airway protection -Hypoxic and hypercapneic respiratory failure:continue ventilation to keep spo2 >92 and pH b/w 7.35-7.45, continue bronchodilators, (+)thick secretoins, good pulmonary toilet, failed CPAP trials today, CXR reveals right upper lobe worsening, will obtain CT chest -Lobar Pneumonia: afebrile, continue abx, mycoplasm igM positive, f/u sputum culture, lactic normalized, currently on azithro and vanco,vanco trough 26, hold vanoc and readjust 1gm q24 -check and replace electrolytes -h/o seizures: valproic acid level theraputic, blinks and moves upper extremities, EEg and neuro exam pending, no seizures clinically -continue tube feeds -ISS q6hrs, ISS -check and replace all electrolytes (hypophosphatemia and hypopotassemia) -continue DVT/PUD ppx -Left IJ (poor iv access) no garcia d/w ICU team/nurse
--- NOTE | 2017-08-29 16:05 | CT ---
PROCEDURE: CT Chest without contrast HISTORY: RUL not resolving PNA COMPARISON: Noncontrast chest CT 08/27/2017. TECHNIQUE: Contiguous axial images were obtained through the chest without intravenous contrast enhancement. Sagittal and coronal reconstructions were performed. Radiation dose (DLP): mGy-cm. This CT exam was performed using one or more of the following dose reduction techniques: Automated exposure control, adjustment of the mA and/or kV according to patient size, and/or use of iterative reconstruction technique. FINDINGS: Endotracheal tube is not significantly changed in position as well as left central venous line. Postop changes consisting multiple right rib fractures are reiterated as well. LUNGS: Dense infiltrate remains opacifying the right lower lobe completely with only marginal aeration remaining. COPD changes remain prominent bilaterally. The right lower lobe main bronchus appears quite narrowed in this could be a function of intrinsic narrowing versus extrinsic narrowing from a mass though no masses clearly defined in this unenhanced examination. Persistent air-fluid levels are seen within the probable bulla at the right apex no cavitary lesions are not excluded. Volume loss of the right upper lobe as compared with right middle lobe retracted to a more cephalad position than normal. No central airway tracheal or right or left mainstem bronchus lesion identified. Compression atelectasis mildly affects the left lower lobe with the left upper lobe on opacified common arnulfo for extensive COPD. MEDIASTINUM: Mediastinum is slightly shifted toward the right secondary volume loss of the right upper and lower lobes. Stable mediastinum including normal size heart and thoracic aorta as well as the main pulmonary artery caliber. No gross interval lymphadenopathy. . PLEURA: [id number] left pleural effusion. Minimal right pleural effusion. No pneumothorax. BONES: Multifocal right ribs deformities are appreciate status post prior fractures with several treated using fixation hardware, again evident. UPPER ABDOMEN: Grossly unremarkable. OTHER FINDINGS: None. IMPRESSION: No signal interval improvement in dense right airspace disease affecting the entire right lower lobe, potentially as a function of postobstructive atelectasis given markedly limited caliber to the right lower lobe bronchus. A cystic lesion is not completely identified in this unenhanced CT of the chest. Opacification of the right upper lobe is reiterated including air-fluid levels reflecting fluid in bulla versus cavitary lesions. [id number] left and minimal right pleural effusions identified not significantly changed.
--- NOTE | 2017-08-29 21:45 | CP.PCM.PN ---
Subjective - Date & Time of Evaluation Date of Evaluation: 08/29/17 Time of Evaluation: 21:45 - Subjective Subjective: Pulmonary Follow up Covering Dr. [place] The Patient was seen and examined at the bedside, Medical records reviewed, and management issues were discussed and formulated with the house staff. Events reviewed Remains orally intubated, mechanically vented, Patient remains on full vent support, did not tolerate vent weaning trial today likely due to generalized weakness with respiratory muscle. On PRVC: 40%Fi02, 14 RR, 450 TV, 5 PEEP Awake, comfortable, Afebrile Denies any fevers, chills, SOB, chest pain or abdominal pain. Objective - Vital Signs/Intake and Output Vital Signs (last 24 hours): Temp Pulse Resp BP Pulse Ox 97.6 F 88 25 H 100/53 L 96 08/29/17 16:00 08/29/17 20:02 08/29/17 20:02 08/29/17 19:02 08/29/17 20:02 Intake and Output: 08/29/17 08/30/17 18:59 06:59 Intake Total 1599 230 Output Total 270 0 Balance 1329 230 - Medications Medications: Current Medications Acetaminophen (Tylenol 650 Mg Supp) 650 mg [place] Q4 PRN PRN Reason: Fever >100.4 F Albuterol/Ipratropium (Duoneb 3 Mg/0.5 Mg (3 Ml) Ud) 3 ml INH RQ6 [facility] Last Admin: 08/29/17 19:49 Dose: 3 ml Bisacodyl (Dulcolax) 10 mg AL ONCE PRN PRN Reason: consipation Carbamazepine (Tegretol) 100 mg PEG Q8 [facility] Last Admin: 08/29/17 21:29 Dose: 100 mg Enoxaparin Sodium (Lovenox) 40 mg SC DAILY [facility] Last Admin: 08/29/17 09:28 Dose: 40 mg Azithromycin 500 mg/ Sodium (Chloride) 250 mls @ 250 mls/hr IVPB DAILY [facility] PRN Reason: Protocol Last Admin: 08/29/17 09:29 Dose: 250 mls/hr Piperacillin Sod/Tazobactam (Sod 3.375 gm/ Sodium Chloride) 100 mls @ 100 mls/ hr IVPB Q6H [facility] PRN Reason: Protocol Last Admin: 08/29/17 16:09 Dose: 100 mls/hr Pantoprazole Sodium (Protonix Susp) 40 mg PO DAILY [facility] Last Admin: 08/29/17 09:28 Dose: 40 mg Potassium Chloride (Potassium Chloride Oral Soln) 40 meq PO Q6H [facility] Stop: 08/30/17 02:31 Last Admin: 08/29/17 20:01 Dose: 40 meq Rosuvastatin Calcium (Crestor) 5 mg PO HS [facility] Last Admin: 08/29/17 21:29 Dose: 5 mg Valproate Sodium (Depakene Oral Soln) 250 mg PEG QID [facility] Last Admin: 08/29/17 21:30 Dose: 250 mg - Labs Labs: 08/29/17 06:22 08/29/17 06:19 PT 16.3 SECONDS (9.7-12.2) H 08/29/17 06:22 INR 1.5 08/29/17 06:22 APTT 26 SECONDS (21-34) D 08/29/17 06:22 - Constitutional Appears: Well, Non-toxic - Eye Exam Eye Exam: Conjunctival injection, EOMI Pupil Exam: NORMAL ACCOMODATION, PERRL - Respiratory Exam Respiratory Exam: Decreased Breath Sounds, Rhonchi. absent: Accessory Muscle Use, Chest Wall Tenderness, Clear to Ausculation Bilateral, Prolonged Expiratory Phase - Cardiovascular Exam Cardiovascular Exam: REGULAR RHYTHM, +S1, +S2. absent: JVD - GI/Abdominal Exam GI & Abdominal Exam: Distended, Normal Bowel Sounds. absent: Firm, Guarding, Rigid, Soft - Extremities Exam Extremities Exam: Pedal Edema. absent: Calf Tenderness - Neurological Exam Neurological Exam: Alert, Awake Assessment and Plan (1) Respiratory failure Assessment & Plan: Vent weaning in progress Continue the CPAP trial. Daily CAT/SBT Continue antibiotic. Strict I&O, negative fluid balance Aggressive pulmonary toilet Maintain aspiration precautions Status: Acute (2) COPD (chronic obstructive pulmonary disease) Status: Chronic (3) Pneumonia Assessment & Plan: Continue Antibiotics 2gm Cefepime given in ED Cont. Zosyn and Vanc. Continue DuoNebs Schedule Wean to extubate CPAP Trial. Status: Acute (4) Sepsis Status: Acute (5) Failure to thrive Status: Acute - Assessment and Plan (Free Text) Assessment: Protonix Lovenox
[2017-08-30] MEDS: Albuterol-Ipratrop 3 mg / 0.5 (3 ml) UD INH SCH ×4 (01:37→19:24)
[2017-08-30] MEDS: Potassium Chloride 20 mEq/15 ml LIQ UD PO SCH (01:43)
[2017-08-30] MEDS: Piperacillin/Tazobact 3.375 GM in Sodium Chloride 100 ML IVPB SCH ×4 (04:47→21:59)
[2017-08-30] MEDS: carBAMazepine Chew Tab 100 MG Chew Tab PEG SCH ×3 (05:16→21:57)
[2017-08-30 05:34] LABS: BASO % 0.4 % (0.0-2.0); EOS % 0.2 % (0.0-4.0); HEMOGLOBIN 8.9 g/dL (12.0-18.0); LYMPH # 1.2 K/uL (1.0-4.3); LYMPH % 13.1 % (20.0-40.0); MEAN CELL VOLUME 84.6 fL (80.0-94.0); MEAN CORPUSCULAR HEMOGLOBIN 27.7 pg (27.0-31.0); MEAN CORPUSCULAR HGB CONC 32.7 g/dL (33.0-37.0); MONO # 2.3 K/uL (0.0-0.8); MONO % 24.7 % (0.0-10.0); NEUT # 5.6 K/uL (1.8-7.0); NEUT % 61.6 % (50.0-75.0); PLATELET COUNT 203 K/uL (130-400); RED CELL DISTRIBUTION WIDTH 17.2 % (11.5-14.5); WHITE BLOOD COUNT 9.2 K/uL (4.8-10.8)
[2017-08-30 05:43] LABS: INR 1.5; PROTHROMBIN TIME 15.9 SECONDS (9.7-12.2)
[2017-08-30 05:48] LABS: ABG ALLEN TEST POS; ARTERIAL BLOOD GAS HCO3 20.6 mmol/L (21-28); ARTERIAL BLOOD GAS HEMOGLOBIN 9.2 g/dL (11.7-17.4); ARTERIAL BLOOD GAS O2 SAT 98.6 % (95-98); ARTERIAL BLOOD GAS PCO2 27 mm/Hg (35-45); ARTERIAL BLOOD GAS PH 7.43 (7.35-7.45); ARTERIAL BLOOD GAS PO2 78 mm/Hg (80-100); ARTERIAL BLOOD GAS TCO2 18.7 mmol/L (22-28)
[2017-08-30 06:06] LABS: ALB/GLOB RATIO 0.5 (1.0-2.1); ALBUMIN 2.2 g/dL (3.5-5.0); ALT/SGPT 12 U/L (21-72); AST/SGOT 35 U/L (17-59); BLOOD UREA NITROGEN 11 mg/dL (9-20); CALCIUM 7.1 mg/dl (8.6-10.4); GFR AFRICAN-AMERICAN > 60; GFR NON-AFRICAN AMERICAN > 60
[2017-08-30 08:32] LABS: BANDS 4 % (0-2); LYMPHOCYTE 18 % (20-40); METAMYELOCYTE 1 % (0-0); MONOCYTE 27 % (0-10); NEUTROPHIL 50 % (50-75); TOTAL CELLS COUNTED 100
[2017-08-30 08:33] LABS: PLATELET ESTIMATE NORMAL (NORMAL)
[2017-08-30 08:34] LABS: ANISOCYTOSIS SLIGHT; LARGE PLATELETS PRESENT
[2017-08-30 08:35] LABS: HYPOCHROMIC SLIGHT; POLYCHROMIC SLIGHT
--- NOTE | 2017-08-30 09:20 | RAD ---
HISTORY: ETT/VENT COMPARISON: Chest CT and chest radiograph both from 08/29/2017. FINDINGS: LUNGS: No definite left-sided infiltrate with left pleural effusion potentially diminished. Trace right pleural effusion not excluded. Prominent right-sided volume loss again identified with right apical fibrosis, cavitary changes in increased opacity unchanged as well. Endotracheal tube and left central venous line are unchanged. No pneumothorax bilaterally. PLEURA: As above. CARDIOVASCULAR: Stable cardiomediastinal silhouette shifted toward the right. OSSEOUS STRUCTURES: No significant abnormalities. VISUALIZED UPPER ABDOMEN: Normal. OTHER FINDINGS: None. IMPRESSION: No interval changes appreciated prominent right sided pulmonary volume loss and right apical cavitary opacity. Pleural effusions are less apparent currently than on prior chest CT which does not prove resolution given similar appearance prior to the chest CT on 08/29/2017 7:13 a.m. chest radiograph. No acute cardiovascular changes.
[2017-08-30] MEDS: Pantoprazole 40 mg Susp UD PO SCH (09:45)
[2017-08-30] MEDS: Valproic Acid 250 mg/5 ml UD Cup PEG SCH ×4 (09:45→21:57)
[2017-08-30] MEDS: Enoxaparin 40 mg Syringe SC SCH (09:45)
--- NOTE | 2017-08-30 12:20 | CP.PCM.PN ---
Subjective - Date & Time of Evaluation Date of Evaluation: 08/30/17 Time of Evaluation: 09:45 - Subjective Subjective: the patient seen and examined Tolerating CPAP Afebrile Continue antibiotics Followup ABG Objective - Vital Signs/Intake and Output Vital Signs (last 24 hours): Temp Pulse Resp BP Pulse Ox 99.2 F 104 H 26 H 136/71 90 L 08/30/17 08:00 08/30/17 11:00 08/30/17 11:00 08/30/17 10:01 08/30/17 11:00 Intake and Output: 08/30/17 08/30/17 06:59 18:59 Intake Total 760 500 Output Total 700 Balance 60 500 - Medications Medications: Current Medications Acetaminophen (Tylenol 650 Mg Supp) 650 mg [place] Q4 PRN PRN Reason: Fever >100.4 F Albuterol/Ipratropium (Duoneb 3 Mg/0.5 Mg (3 Ml) Ud) 3 ml INH RQ6 [facility] Last Admin: 08/30/17 07:56 Dose: 3 ml Bisacodyl (Dulcolax) 10 mg HI ONCE PRN PRN Reason: consipation Carbamazepine (Tegretol) 100 mg PEG Q8 [facility] Last Admin: 08/30/17 05:16 Dose: 100 mg Enoxaparin Sodium (Lovenox) 40 mg SC DAILY [facility] Last Admin: 08/30/17 09:45 Dose: 40 mg Piperacillin Sod/Tazobactam (Sod 3.375 gm/ Sodium Chloride) 100 mls @ 100 mls/ hr IVPB Q6H [facility] PRN Reason: Protocol Last Admin: 08/30/17 10:06 Dose: 100 mls/hr Pantoprazole Sodium (Protonix Susp) 40 mg PO DAILY [facility] Last Admin: 08/30/17 09:45 Dose: 40 mg Rosuvastatin Calcium (Crestor) 5 mg PO HS [facility] Last Admin: 08/29/17 21:29 Dose: 5 mg Valproate Sodium (Depakene Oral Soln) 250 mg PEG QID [facility] Last Admin: 08/30/17 09:45 Dose: 250 mg - Labs Labs: 08/30/17 05:22 08/30/17 05:22 PT 15.9 SECONDS (9.7-12.2) H 08/30/17 05:22 INR 1.5 08/30/17 05:22 APTT 30 SECONDS (21-34) 08/30/17 05:22 Assessment and Plan (1) Respiratory failure Status: Acute (2) Anemia Status: Acute (3) Pneumonia Status: Acute
--- NOTE | 2017-08-30 13:20 | CP.CCUPN ---
CCU Subjective - Physician Review Events Since Last Encounter (Free Text): 08/30/17 13:18 Patient is a 77-year-old male with a history of arthritis, bronchial asthma, COPD, severe dementia, hypertension, pneumonia, seizure disorder, TIA, right AKA. Patient had multiple surgical intervention in the lungs, also possibly lung fibrotic changes. Patient admitted to the hospital with the acute respiratory insufficiency on ventilator currently. Attempting to wean, currently on CPAP trial. Mildly tachypnea noted. He is awake. Opening his eyes. But he is extremely weak CCU Objective - Vital Signs / Intake & Output Vital Signs (Last 4 hours): Vital Signs Pulse Resp BP Pulse Ox 08/30/17 11:00 104 H 26 H 90 L 08/30/17 10:01 107 H 20 136/71 97 08/30/17 10:00 106 H 16 98 Intake and Output (Last 8hrs): Intake & Output 08/29/17 08/30/17 08/30/17 22:59 06:59 14:59 Intake Total 642 420 500 Output Total 0 700 Balance 642 -280 500 Weight 143 lb 8.335 oz Intake: Intake, IV Amount 42 100 100 Left Medial Port Internal 42 100 100 Jugular Tube Feeding 320 320 200 Other 280 200 Output: Urine 0 700 Urine, Voided 0 700 Emesis 0 Other: # Bowel Movements 0 0 - Physical Exam Narrative Physical Exam (Free Text): 08/30/17 13:19 Currently patient is on ventilator. Chest good air entry on the left lungs. Regular heart sound. Abdomen soft Edema negative Right AKA. Labs reviewed X-rays reviewed Head: Positive for: Atraumatic, Normocephalic Pupils: Positive for: PERRL Mouth: Negative for: Moist Mucous Membranes Respiratory/Chest: Positive for: Rales (B/L ), Other (Intubated). Negative for : Clear to Auscultation Cardiovascular: Positive for: Normal S1, S2. Negative for: Tachycardic Abdomen: Positive for: Normal Bowel Sounds. Negative for: Distention Neurological: Negative for: GCS=15 (10T) Psychiatric: Negative for: Alert - Medications Active Medications: Active Medications Generic Name Dose Route Start Last Admin Trade Name Freq PRN Reason Stop Dose Admin Acetaminophen 650 mg 08/25/17 17:20 [address] Q4 PRN Fever >100.4 F Albuterol/Ipratropium 3 ml 08/28/17 08:00 08/30/17 07:56 Duoneb 3 Mg/0.5 Mg (3 Ml) Ud INH 3 ml RQ6 AMY Administration Bisacodyl 10 mg 08/29/17 08:[address] ONCE PRN consipation Carbamazepine 100 mg 08/24/17 22:00 08/30/17 05:16 Tegretol PEG 100 mg Q8 AMY Administration Enoxaparin Sodium 40 mg 08/24/17 18:00 08/30/17 09:45 Lovenox SC 40 mg DAILY AMY Administration Piperacillin Sod/Tazobactam 100 mls @ 100 mls/hr 08/27/17 11:00 08/30/17 10: 06 Sod 3.375 gm/ Sodium Chloride IVPB 100 mls/hr Q6H AMY Administration Protocol Pantoprazole Sodium 40 mg 08/29/17 10:00 08/30/17 09:45 Protonix Susp PO 40 mg DAILY AMY Administration Rosuvastatin Calcium 5 mg 08/24/17 22:00 08/29/17 21:29 Crestor PO 5 mg HS AMY Administration Valproate Sodium 250 mg 08/24/17 18:00 08/30/17 09:45 Depakene Oral Soln PEG 250 mg QID AMY Administration - Patient Studies Lab Studies: Microbiology Studies 08/28/17 11:50 Gram Stain - Final Trachasp Sputum Culture - Final NORMAL ORAL MELISSA 08/24/17 13:31 Blood Culture - Final Blood NO GROWTH AFTER 5 DAYS Gram Stain - Final TEST NOT PERFORMED 08/24/17 13:31 Blood Culture - Final Blood NO GROWTH AFTER 5 DAYS Gram Stain - Final TEST NOT PERFORMED Lab Studies 08/30/17 08/30/17 08/30/17 Range/Units 11:30 05:59 05:38 WBC (4.8-10.8) K/uL RBC (4.40-5.90) Mil/uL Hgb (12.0-18.0) g/dL Hct (35.0-51.0) % MCV (80.0-94.0) fL MCH (27.0-31.0) pg MCHC (33.0-37.0) g/dL RDW (11.5-14.5) % Plt Count (130-400) K/uL MPV (7.2-11.7) fL Neut % (Auto) (50.0-75.0) % Lymph % (Auto) (20.0-40.0) % [place] % (Auto) (0.0-10.0) % Eos % (Auto) (0.0-4.0) % Baso % (Auto) (0.0-2.0) % Neut # (Auto) (1.8-7.0) K/uL Lymph # (Auto) (1.0-4.3) K/uL [place] # (Auto) (0.0-0.8) K/uL Eos # (Auto) (0.0-0.7) K/uL Baso # (Auto) (0.0-0.2) K/uL Neutrophils % (Manual) (50-75) % Band Neutrophils % (0-2) % Lymphocytes % (Manual) (20-40) % Monocytes % (Manual) (0-10) % Metamyelocytes % (0-0) % Platelet Estimate (NORMAL) Large Platelets Polychromasia Hypochromasia (manual) Anisocytosis (manual) PT (9.7-12.2) SECONDS INR APTT (21-34) SECONDS Puncture Site Rr pCO2 27 L (35-45) mm/Hg pO2 78 L (80-100) mm/Hg HCO3 20.6 L (21-28) mmol/L ABG pH 7.43 (7.35-7.45) ABG Total CO2 18.7 L (22-28) mmol/L ABG O2 Saturation 98.6 H (95-98) % ABG Base Excess -5.5 L (-2.0-3.0) mmol/L ABG Hemoglobin 9.2 L (11.7-17.4) g/dL ABG Carboxyhemoglobin 2.7 H (0.5-1.5) % POC ABG HHb (Measured) 1.3 (0.0-5.0) % ABG Methemoglobin 1.2 (0.0-3.0) % Collin Test Pos A-a O2 Difference 138.0 mm/Hg Respiratory Index 1.8 Hgb O2 Saturation 94.9 L (95.0-98.0) % Vent Mode Prvc Mechanical Rate 14 FiO2 35.0 % Tidal Volume 450 PEEP 5 Sodium (132-148) mmol/L Potassium (3.6-5.2) mmol/L Chloride (98-107) mmol/L Carbon Dioxide (22-30) mmol/L Anion Gap (10-20) BUN (9-20) mg/dL Creatinine (0.8-1.5) mg/dL Est GFR ( Amer) Est GFR (Non-Af Amer) POC Glucose (mg/dL) 110 91 (65-110) mg/dL Random Glucose (75-110) mg/dL Calcium (8.6-10.4) mg/dl Phosphorus (2.5-4.5) mg/dL Magnesium (1.6-2.3) mg/dL Total Bilirubin (0.2-1.3) mg/dL AST (17-59) U/L ALT (21-72) U/L Alkaline Phosphatase (38-126) U/L Total Protein (6.3-8.3) g/dL Albumin (3.5-5.0) g/dL Globulin (2.2-3.9) gm/dL Albumin/Globulin Ratio (1.0-2.1) Random Vancomycin ug/mL 08/30/17 08/30/17 08/30/17 Range/Units 05:22 05:22 05:22 WBC (4.8-10.8) K/uL RBC (4.40-5.90) Mil/uL Hgb (12.0-18.0) g/dL Hct (35.0-51.0) % MCV (80.0-94.0) fL MCH (27.0-31.0) pg MCHC (33.0-37.0) g/dL RDW (11.5-14.5) % Plt Count (130-400) K/uL MPV (7.2-11.7) fL Neut % (Auto) (50.0-75.0) % Lymph % (Auto) (20.0-40.0) % [place] % (Auto) (0.0-10.0) % Eos % (Auto) (0.0-4.0) % Baso % (Auto) (0.0-2.0) % Neut # (Auto) (1.8-7.0) K/uL Lymph # (Auto) (1.0-4.3) K/uL [place] # (Auto) (0.0-0.8) K/uL Eos # (Auto) (0.0-0.7) K/uL Baso # (Auto) (0.0-0.2) K/uL Neutrophils % (Manual) (50-75) % Band Neutrophils % (0-2) % Lymphocytes % (Manual) (20-40) % Monocytes % (Manual) (0-10) % Metamyelocytes % (0-0) % Platelet Estimate (NORMAL) Large Platelets Polychromasia Hypochromasia (manual) Anisocytosis (manual) PT 15.9 H (9.7-12.2) SECONDS INR 1.5 APTT 30 (21-34) SECONDS Puncture Site pCO2 (35-45) mm/Hg pO2 (80-100) mm/Hg HCO3 (21-28) mmol/L ABG pH (7.35-7.45) ABG Total CO2 (22-28) mmol/L ABG O2 Saturation (95-98) % ABG Base Excess (-2.0-3.0) mmol/L ABG Hemoglobin (11.7-17.4) g/dL ABG Carboxyhemoglobin (0.5-1.5) % POC ABG HHb (Measured) (0.0-5.0) % ABG Methemoglobin (0.0-3.0) % Collin Test A-a O2 Difference mm/Hg Respiratory Index Hgb O2 Saturation (95.0-98.0) % Vent Mode Mechanical Rate FiO2 % Tidal Volume PEEP Sodium 146 (132-148) mmol/L Potassium 5.0 (3.6-5.2) mmol/L Chloride 117 H (98-107) mmol/L Carbon Dioxide 21 L (22-30) mmol/L Anion Gap 14 (10-20) BUN 11 (9-20) mg/dL Creatinine 0.6 L (0.8-1.5) mg/dL Est GFR ( Amer) > 60 Est GFR (Non-Af Amer) > 60 POC Glucose (mg/dL) (65-110) mg/dL Random Glucose 82 (75-110) mg/dL Calcium 7.1 L (8.6-10.4) mg/dl Phosphorus 2.5 (2.5-4.5) mg/dL Magnesium 2.1 (1.6-2.3) mg/dL Total Bilirubin 2.3 H (0.2-1.3) mg/dL AST 35 (17-59) U/L ALT 12 L (21-72) U/L Alkaline Phosphatase 69 (38-126) U/L Total Protein 6.3 (6.3-8.3) g/dL Albumin 2.2 L (3.5-5.0) g/dL Globulin 4.0 H (2.2-3.9) gm/dL Albumin/Globulin Ratio 0.5 L (1.0-2.1) Random Vancomycin 16.9 ug/mL 08/30/17 08/29/17 08/29/17 Range/Units 05:22 23:48 17:46 WBC 9.2 (4.8-10.8) K/uL RBC 3.20 L (4.40-5.90) Mil/uL Hgb 8.9 L (12.0-18.0) g/dL Hct 27.1 L (35.0-51.0) % MCV 84.6 (80.0-94.0) fL MCH 27.7 (27.0-31.0) pg MCHC 32.7 L (33.0-37.0) g/dL RDW 17.2 H (11.5-14.5) % Plt Count 203 (130-400) K/uL MPV 8.0 (7.2-11.7) fL Neut % (Auto) 61.6 (50.0-75.0) % Lymph % (Auto) 13.1 L (20.0-40.0) % [place] % (Auto) 24.7 H (0.0-10.0) % Eos % (Auto) 0.2 (0.0-4.0) % Baso % (Auto) 0.4 (0.0-2.0) % Neut # (Auto) 5.6 (1.8-7.0) K/uL Lymph # (Auto) 1.2 (1.0-4.3) K/uL [place] # (Auto) 2.3 H (0.0-0.8) K/uL Eos # (Auto) 0.0 (0.0-0.7) K/uL Baso # (Auto) 0.0 (0.0-0.2) K/uL Neutrophils % (Manual) 50 (50-75) % Band Neutrophils % 4 H (0-2) % Lymphocytes % (Manual) 18 L (20-40) % Monocytes % (Manual) 27 H (0-10) % Metamyelocytes % 1 H (0-0) % Platelet Estimate Normal (NORMAL) Large Platelets Present Polychromasia Slight Hypochromasia (manual) Slight Anisocytosis (manual) Slight PT (9.7-12.2) SECONDS INR APTT (21-34) SECONDS Puncture Site pCO2 (35-45) mm/Hg pO2 (80-100) mm/Hg HCO3 (21-28) mmol/L ABG pH (7.35-7.45) ABG Total CO2 (22-28) mmol/L ABG O2 Saturation (95-98) % ABG Base Excess (-2.0-3.0) mmol/L ABG Hemoglobin (11.7-17.4) g/dL ABG Carboxyhemoglobin (0.5-1.5) % POC ABG HHb (Measured) (0.0-5.0) % ABG Methemoglobin (0.0-3.0) % Collin Test A-a O2 Difference mm/Hg Respiratory Index Hgb O2 Saturation (95.0-98.0) % Vent Mode Mechanical Rate FiO2 % Tidal Volume PEEP Sodium (132-148) mmol/L Potassium (3.6-5.2) mmol/L Chloride (98-107) mmol/L Carbon Dioxide (22-30) mmol/L Anion Gap (10-20) BUN (9-20) mg/dL Creatinine (0.8-1.5) mg/dL Est GFR ( Amer) Est GFR (Non-Af Amer) POC Glucose (mg/dL) 108 136 H (65-110) mg/dL Random Glucose (75-110) mg/dL Calcium (8.6-10.4) mg/dl Phosphorus (2.5-4.5) mg/dL Magnesium (1.6-2.3) mg/dL Total Bilirubin (0.2-1.3) mg/dL AST (17-59) U/L ALT (21-72) U/L Alkaline Phosphatase (38-126) U/L Total Protein (6.3-8.3) g/dL Albumin (3.5-5.0) g/dL Globulin (2.2-3.9) gm/dL Albumin/Globulin Ratio (1.0-2.1) Random Vancomycin ug/mL Laboratory Results - last 24 hr 08/29/17 08/29/17 08/30/17 17:46 23:48 05:22 WBC 9.2 RBC 3.20 L Hgb 8.9 L Hct 27.1 L MCV 84.6 MCH 27.7 MCHC 32.7 L RDW 17.2 H Plt Count 203 MPV 8.0 Neut % (Auto) 61.6 Lymph % (Auto) 13.1 L [place] % (Auto) 24.7 H Eos % (Auto) 0.2 Baso % (Auto) 0.4 Neut # (Auto) 5.6 Lymph # (Auto) 1.2 [place] # (Auto) 2.3 H Eos # (Auto) 0.0 Baso # (Auto) 0.0 Neutrophils % (Manual) 50 Band Neutrophils % 4 H Lymphocytes % (Manual) 18 L Monocytes % (Manual) 27 H Metamyelocytes % 1 H Platelet Estimate Normal Large Platelets Present Polychromasia Slight Hypochromasia (manual) Slight Anisocytosis (manual) Slight PT INR APTT Puncture Site pCO2 pO2 HCO3 ABG pH ABG Total CO2 ABG O2 Saturation ABG Base Excess ABG Hemoglobin ABG Carboxyhemoglobin POC ABG HHb (Measured) ABG Methemoglobin Collin Test A-a O2 Difference Respiratory Index Hgb O2 Saturation Vent Mode Mechanical Rate FiO2 Tidal Volume PEEP Sodium Potassium Chloride Carbon Dioxide Anion Gap BUN Creatinine Est GFR ( Amer) Est GFR (Non-Af Amer) POC Glucose (mg/dL) 136 H 108 Random Glucose Calcium Phosphorus Magnesium Total Bilirubin AST ALT Alkaline Phosphatase Total Protein Albumin Globulin Albumin/Globulin Ratio Random Vancomycin 08/30/17 08/30/17 08/30/17 05:22 05:22 05:22 WBC RBC Hgb Hct MCV MCH MCHC RDW Plt Count MPV Neut % (Auto) Lymph % (Auto) [place] % (Auto) Eos % (Auto) Baso % (Auto) Neut # (Auto) Lymph # (Auto) [place] # (Auto) Eos # (Auto) Baso # (Auto) Neutrophils % (Manual) Band Neutrophils % Lymphocytes % (Manual) Monocytes % (Manual) Metamyelocytes % Platelet Estimate Large Platelets Polychromasia Hypochromasia (manual) Anisocytosis (manual) PT 15.9 H INR 1.5 APTT 30 Puncture Site pCO2 pO2 HCO3 ABG pH ABG Total CO2 ABG O2 Saturation ABG Base Excess ABG Hemoglobin ABG Carboxyhemoglobin POC ABG HHb (Measured) ABG Methemoglobin Collin Test A-a O2 Difference Respiratory Index Hgb O2 Saturation Vent Mode Mechanical Rate FiO2 Tidal Volume PEEP Sodium 146 Potassium 5.0 Chloride 117 H Carbon Dioxide 21 L Anion Gap 14 BUN 11 Creatinine 0.6 L Est GFR ( Amer) > 60 Est GFR (Non-Af Amer) > 60 POC Glucose (mg/dL) Random Glucose 82 Calcium 7.1 L Phosphorus 2.5 Magnesium 2.1 Total Bilirubin 2.3 H AST 35 ALT 12 L Alkaline Phosphatase 69 Total Protein 6.3 Albumin 2.2 L Globulin 4.0 H Albumin/Globulin Ratio 0.5 L Random Vancomycin 16.9 08/30/17 08/30/17 08/30/17 05:38 05:59 11:30 WBC RBC Hgb Hct MCV MCH MCHC RDW Plt Count MPV Neut % (Auto) Lymph % (Auto) [place] % (Auto) Eos % (Auto) Baso % (Auto) Neut # (Auto) Lymph # (Auto) [place] # (Auto) Eos # (Auto) Baso # (Auto) Neutrophils % (Manual) Band Neutrophils % Lymphocytes % (Manual) Monocytes % (Manual) Metamyelocytes % Platelet Estimate Large Platelets Polychromasia Hypochromasia (manual) Anisocytosis (manual) PT INR APTT Puncture Site Rr pCO2 27 L pO2 78 L HCO3 20.6 L ABG pH 7.43 ABG Total CO2 18.7 L ABG O2 Saturation 98.6 H ABG Base Excess -5.5 L ABG Hemoglobin 9.2 L ABG Carboxyhemoglobin 2.7 H POC ABG HHb (Measured) 1.3 ABG Methemoglobin 1.2 Collin Test Pos A-a O2 Difference 138.0 Respiratory Index 1.8 Hgb O2 Saturation 94.9 L Vent Mode Prvc Mechanical Rate 14 FiO2 35.0 Tidal Volume 450 PEEP 5 Sodium Potassium Chloride Carbon Dioxide Anion Gap BUN Creatinine Est GFR ( Amer) Est GFR (Non-Af Amer) POC Glucose (mg/dL) 91 110 Random Glucose Calcium Phosphorus Magnesium Total Bilirubin AST ALT Alkaline Phosphatase Total Protein Albumin Globulin Albumin/Globulin Ratio Random Vancomycin Fingerstick Blood Sugar Results: 91 Review of Systems - Review of Systems All systems: reviewed and no additional remarkable complaints except Critical Care Progress Note - Ventilator Checklist Head of Bed 30 Degrees: Yes Daily Sedation Vacation: Yes Daily Assessment of Readiness to Wean: Yes Daily Spontaneous Breathing Trial: Yes PUD Prophalyxis: Yes DVT Prophylaxis: Yes Oral Care with Chlorhexidine Gluconate {CHG}: Yes Assessment/Plan (1) Respiratory failure Assessment and plan: Patient with acute respiratory failure. On ventilator. We'll continue the CPAP trial. Patient possibly has a cavitary lung disease. On antibiotic. We will continue the current treatment and will follow the patient Current Visit: Yes Status: Acute (2) Acute hypernatremia Current Visit: No Status: Acute (3) Cellulitis of right foot Current Visit: No Status: Acute
--- NOTE | 2017-08-30 22:31 | CP.PCM.PN ---
Subjective - Date & Time of Evaluation Date of Evaluation: 08/30/17 Time of Evaluation: 20:00 - Subjective Subjective: Pt is seen and examined on MV, 35% Fio2, pt is sedated Objective - Vital Signs/Intake and Output Vital Signs (last 24 hours): Temp Pulse Resp BP Pulse Ox 97.8 F 112 H 26 H 128/63 100 08/30/17 20:00 08/30/17 20:02 08/30/17 20:02 08/30/17 20:02 08/30/17 20:02 Intake and Output: 08/30/17 08/31/17 18:59 06:59 Intake Total 1230 120 Output Total 320 150 Balance 910 -30 - Medications Medications: Current Medications Acetaminophen (Tylenol 650 Mg Supp) 650 mg WI Q4 PRN PRN Reason: Fever >100.4 F Last Admin: 08/30/17 20:00 Dose: 650 mg Albuterol/Ipratropium (Duoneb 3 Mg/0.5 Mg (3 Ml) Ud) 3 ml INH RQ6 [facility] Last Admin: 08/30/17 19:24 Dose: 3 ml Bisacodyl (Dulcolax) 10 mg WI ONCE PRN PRN Reason: consipation Carbamazepine (Tegretol) 100 mg PEG Q8 [facility] Last Admin: 08/30/17 21:57 Dose: 100 mg Enoxaparin Sodium (Lovenox) 40 mg SC DAILY [facility] Last Admin: 08/30/17 09:45 Dose: 40 mg Piperacillin Sod/Tazobactam (Sod 3.375 gm/ Sodium Chloride) 100 mls @ 100 mls/ hr IVPB Q6H AMY PRN Reason: Protocol Last Admin: 08/30/17 21:59 Dose: 100 mls/hr Pantoprazole Sodium (Protonix Susp) 40 mg PO DAILY [facility] Last Admin: 08/30/17 09:45 Dose: 40 mg Rosuvastatin Calcium (Crestor) 5 mg PO HS [facility] Last Admin: 08/30/17 21:57 Dose: 5 mg Valproate Sodium (Depakene Oral Soln) 250 mg PEG QID [facility] Last Admin: 08/30/17 21:57 Dose: 250 mg - Labs Labs: 08/30/17 05:22 08/30/17 05:22 PT 15.9 SECONDS (9.7-12.2) H 08/30/17 05:22 INR 1.5 08/30/17 05:22 APTT 30 SECONDS (21-34) 08/30/17 05:22 - Constitutional Appears: No Acute Distress - Head Exam Head Exam: ATRAUMATIC, NORMAL INSPECTION, NORMOCEPHALIC - Eye Exam Eye Exam: EOMI, Normal appearance, PERRL Pupil Exam: NORMAL ACCOMODATION, PERRL - ENT Exam ENT Exam: Mucous Membranes Moist, Normal Exam - Respiratory Exam Respiratory Exam: Clear to Ausculation Bilateral, NORMAL BREATHING PATTERN - Cardiovascular Exam Cardiovascular Exam: REGULAR RHYTHM, +S1, +S2. absent: Murmur - GI/Abdominal Exam GI & Abdominal Exam: Normal Bowel Sounds - Rectal Exam Rectal Exam: Deferred Assessment and Plan (1) Sepsis Status: Acute (2) Fever Status: Acute (3) Seizure disorder Status: Acute (4) COPD (chronic obstructive pulmonary disease) Status: Chronic (5) PVD (peripheral vascular disease) Status: Chronic (6) Respiratory failure Status: Acute
[2017-08-31] MEDS: Albuterol-Ipratrop 3 mg / 0.5 (3 ml) UD INH SCH ×4 (01:46→19:37)
[2017-08-31] MEDS: Piperacillin/Tazobact 3.375 GM in Sodium Chloride 100 ML IVPB SCH ×4 (05:00→23:00)
[2017-08-31] MEDS: carBAMazepine Chew Tab 100 MG Chew Tab PEG SCH ×3 (05:01→21:57)
[2017-08-31 05:42] LABS: ABG ALLEN TEST POS; ARTERIAL BLOOD GAS HCO3 21.6 mmol/L (21-28); ARTERIAL BLOOD GAS HEMOGLOBIN 9.4 g/dL (11.7-17.4); ARTERIAL BLOOD GAS O2 SAT 98.9 % (95-98); ARTERIAL BLOOD GAS PCO2 30 mm/Hg (35-45); ARTERIAL BLOOD GAS PH 7.42 (7.35-7.45); ARTERIAL BLOOD GAS PO2 91 mm/Hg (80-100); ARTERIAL BLOOD GAS TCO2 20.4 mmol/L (22-28)
[2017-08-31 06:44] LABS: BASO # 0.1 K/uL (0.0-0.2); BASO % 0.8 % (0.0-2.0); EOS % 0.3 % (0.0-4.0); LYMPH # 1.7 K/uL (1.0-4.3); LYMPH % 14.6 % (20.0-40.0); MEAN CELL VOLUME 84.3 fL (80.0-94.0); MEAN CORPUSCULAR HEMOGLOBIN 27.6 pg (27.0-31.0); MEAN CORPUSCULAR HGB CONC 32.7 g/dL (33.0-37.0); MEAN PLATELET VOLUME 8.1 fL (7.2-11.7); MONO # 2.9 K/uL (0.0-0.8); MONO % 25.3 % (0.0-10.0); NEUT # 6.8 K/uL (1.8-7.0); NRBC % 0.2 % (0.0-2.0); PLATELET COUNT 213 K/uL (130-400); RBC 3.25 Mil/uL (4.40-5.90); RED CELL DISTRIBUTION WIDTH 17.2 % (11.5-14.5); WHITE BLOOD COUNT 11.4 K/uL (4.8-10.8)
[2017-08-31 06:50] LABS: INR 1.5; PROTHROMBIN TIME 16.5 SECONDS (9.7-12.2)
[2017-08-31 07:41] LABS: ALB/GLOB RATIO 0.5 (1.0-2.1); ALBUMIN 2.2 g/dL (3.5-5.0); ALT/SGPT 9 U/L (21-72); AST/SGOT 37 U/L (17-59); BLOOD UREA NITROGEN 16 mg/dL (9-20); CALCIUM 7.7 mg/dl (8.6-10.4); GFR AFRICAN-AMERICAN > 60; GFR NON-AFRICAN AMERICAN > 60
[2017-08-31 08:25] LABS: BANDS 8 % (0-2); LYMPHOCYTE 11 % (20-40); MONOCYTE 25 % (0-10); NEUTROPHIL 55 % (50-75); REACTIVE LYMPHOCYTES 1 % (0-0); TOTAL CELLS COUNTED 100
[2017-08-31 08:26] LABS: ANISOCYTOSIS SLIGHT; LARGE PLATELETS PRESENT; PLATELET ESTIMATE NORMAL (NORMAL)
--- NOTE | 2017-08-31 08:26 | RAD ---
Chest x-ray single frontal view History: Endotracheal tube placement. Comparison: 08/30/2017 Findings: Lines and tubes in stable position. Postsurgical changes in the right [place]icia thorax with multiple rib deformities. Persistent dense consolidative opacification at the right upper to mid lung zone with some aeration in the opacifications at the right lung apex. Diffuse increased interstitial lung markings throughout the remainder of the right lung with nodular scattered densities. Enlarged ectatic aorta. Degenerative changes in the spine. Left basilar atelectasis. Deformity of the right proximal humerus. Impression: No significant interval change.
[2017-08-31] MEDS: Valproic Acid 250 mg/5 ml UD Cup PEG SCH ×4 (10:17→21:57)
[2017-08-31] MEDS: Pantoprazole 40 mg Susp UD PO SCH (10:17)
[2017-08-31] MEDS: Enoxaparin 40 mg Syringe SC SCH (10:17)
[2017-08-31] MEDS ORDERED: Azithromycin 500 MG in Sodium Chloride 0.9% 250 ML IVPB SCH (10:30)
--- NOTE | 2017-08-31 11:32 | CP.CCUPN ---
"<Niraj Negrete - Last Filed: 08/31/17 11:29> CCU Subjective - Physician Review Subjective (Free Text): Patient seen and examined at bedside. Currently on Mechanical Ventilation PRVC mode. Patient is responsive to verbal and tactile stimuli. Febrile this morning. 08/31/17 11:30 CCU Objective - Vital Signs / Intake & Output Vital Signs (Last 4 hours): Vital Signs Temp 08/31/17 09:32 102.7 F H Intake and Output (Last 8hrs): Intake & Output 08/30/17 08/31/17 08/31/17 22:59 06:59 14:59 Intake Total 570 520 Output Total 270 500 Balance 300 20 Weight 142 lb 8 oz Intake: Intake, IV Amount 100 200 Left Medial Port Internal 100 200 Jugular Tube Feeding 320 320 Other 150 Output: Urine 270 500 Urine, Voided 270 500 Emesis 0 Other: # Bowel Movements 0 - Physical Exam Head: Positive for: Atraumatic, Normocephalic Pupils: Positive for: PERRL Mouth: Negative for: Moist Mucous Membranes Respiratory/Chest: Positive for: Clear to Auscultation, Other (Intubated) Cardiovascular: Positive for: Normal S1, S2. Negative for: Tachycardic Abdomen: Positive for: Normal Bowel Sounds. Negative for: Distention Neurological: Negative for: GCS=15 (10T) Psychiatric: Negative for: Alert - Medications Active Medications: Active Medications Generic Name Dose Route Start Last Admin Trade Name Freq PRN Reason Stop Dose Admin Acetaminophen 650 mg 08/25/17 17:20 08/31/17 09:32 Tylenol 650 Mg Supp NC 650 mg Q4 PRN Administration Fever >100.4 F Albuterol/Ipratropium 3 ml 08/28/17 08:00 08/31/17 01:46 Duoneb 3 Mg/0.5 Mg (3 Ml) Ud INH 3 ml RQ6 AMY Administration Bisacodyl 10 mg 08/29/17 08:30 Dulcolax NC ONCE PRN consipation Carbamazepine 100 mg 08/24/17 22:00 08/31/17 05:01 Tegretol PEG 100 mg Q8 AMY Administration Enoxaparin Sodium 40 mg 08/24/17 18:00 08/31/17 10:17 Lovenox SC 40 mg DAILY AMY Administration Piperacillin Sod/Tazobactam 100 mls @ 100 mls/hr 08/27/17 11:00 08/31/17 10: 16 Sod 3.375 gm/ Sodium Chloride IVPB 100 mls/hr Q6H AMY Administration Protocol Metronidazole 500 mg in 100 mls @ 100 mls/hr 08/31/17 14:00 Flagyl IVPB Q8 AMY Protocol Azithromycin 500 mg/ Sodium 250 mls @ 250 mls/hr 08/31/17 10:30 Chloride IVPB DAILY [facility] Protocol Pantoprazole Sodium 40 mg 08/29/17 10:00 08/31/17 10:17 Protonix Susp PO 40 mg DAILY AMY Administration Rosuvastatin Calcium 5 mg 08/24/17 22:00 08/30/17 21:57 Crestor PO 5 mg HS AMY Administration Valproate Sodium 250 mg 08/24/17 18:00 08/31/17 10:17 Depakene Oral Soln PEG 250 mg QID AMY Administration - Patient Studies Lab Studies: Microbiology Studies 08/28/17 11:50 Gram Stain - Final Trachasp Sputum Culture - Final NORMAL ORAL MELISSA Lab Studies 08/31/17 08/31/17 08/31/17 Range/Units 07:25 06:36 06:35 WBC 11.4 H (4.8-10.8) K/uL RBC 3.25 L (4.40-5.90) Mil/uL Hgb 9.0 L (12.0-18.0) g/dL Hct 27.4 L (35.0-51.0) % MCV 84.3 (80.0-94.0) fL MCH 27.6 (27.0-31.0) pg MCHC 32.7 L (33.0-37.0) g/dL RDW 17.2 H (11.5-14.5) % Plt Count 213 (130-400) K/uL MPV 8.1 (7.2-11.7) fL Neut % (Auto) 59.0 (50.0-75.0) % Lymph % (Auto) 14.6 L (20.0-40.0) % Tillman % (Auto) 25.3 H (0.0-10.0) % Eos % (Auto) 0.3 (0.0-4.0) % Baso % (Auto) 0.8 (0.0-2.0) % Neut # (Auto) 6.8 (1.8-7.0) K/uL Lymph # (Auto) 1.7 (1.0-4.3) K/uL Tillman # (Auto) 2.9 H (0.0-0.8) K/uL Eos # (Auto) 0.0 (0.0-0.7) K/uL Baso # (Auto) 0.1 (0.0-0.2) K/uL Neutrophils % (Manual) 55 (50-75) % Band Neutrophils % 8 H (0-2) % Lymphocytes % (Manual) 11 L (20-40) % Reactive Lymphs % 1 H (0-0) % Monocytes % (Manual) 25 H (0-10) % Platelet Estimate Normal (NORMAL) Large Platelets Present Anisocytosis (manual) Slight PT 16.5 H (9.7-12.2) SECONDS INR 1.5 APTT 33 (21-34) SECONDS Puncture Site pCO2 (35-45) mm/Hg pO2 (80-100) mm/Hg HCO3 (21-28) mmol/L ABG pH (7.35-7.45) ABG Total CO2 (22-28) mmol/L ABG O2 Saturation (95-98) % ABG Base Excess (-2.0-3.0) mmol/L ABG Hemoglobin (11.7-17.4) g/dL ABG Carboxyhemoglobin (0.5-1.5) % POC ABG HHb (Measured) (0.0-5.0) % ABG Methemoglobin (0.0-3.0) % Collin Test A-a O2 Difference mm/Hg Respiratory Index Hgb O2 Saturation (95.0-98.0) % Vent Mode Mechanical Rate FiO2 % Tidal Volume PEEP Sodium 146 (132-148) mmol/L Potassium 4.9 (3.6-5.2) mmol/L Chloride 115 H (98-107) mmol/L Carbon Dioxide 21 L (22-30) mmol/L Anion Gap 15 (10-20) BUN 16 (9-20) mg/dL Creatinine 0.6 L (0.8-1.5) mg/dL Est GFR ( Amer) > 60 Est GFR (Non-Af Amer) > 60 POC Glucose (mg/dL) (65-110) mg/dL Random Glucose 72 L (75-110) mg/dL Calcium 7.7 L (8.6-10.4) mg/dl Total Bilirubin 4.3 H (0.2-1.3) mg/dL AST 37 (17-59) U/L ALT 9 L D (21-72) U/L Alkaline Phosphatase 82 (38-126) U/L Total Protein 6.8 (6.3-8.3) g/dL Albumin 2.2 L (3.5-5.0) g/dL Globulin 4.6 H (2.2-3.9) gm/dL Albumin/Globulin Ratio 0.5 L (1.0-2.1) 08/31/17 08/31/17 08/31/17 Range/Units 05:38 05:34 05:30 WBC (4.8-10.8) K/uL RBC (4.40-5.90) Mil/uL Hgb (12.0-18.0) g/dL Hct (35.0-51.0) % MCV (80.0-94.0) fL MCH (27.0-31.0) pg MCHC (33.0-37.0) g/dL RDW (11.5-14.5) % Plt Count (130-400) K/uL MPV (7.2-11.7) fL Neut % (Auto) (50.0-75.0) % Lymph % (Auto) (20.0-40.0) % Tillman % (Auto) (0.0-10.0) % Eos % (Auto) (0.0-4.0) % Baso % (Auto) (0.0-2.0) % Neut # (Auto) (1.8-7.0) K/uL Lymph # (Auto) (1.0-4.3) K/uL Tillman # (Auto) (0.0-0.8) K/uL Eos # (Auto) (0.0-0.7) K/uL Baso # (Auto) (0.0-0.2) K/uL Neutrophils % (Manual) (50-75) % Band Neutrophils % (0-2) % Lymphocytes % (Manual) (20-40) % Reactive Lymphs % (0-0) % Monocytes % (Manual) (0-10) % Platelet Estimate (NORMAL) Large Platelets Anisocytosis (manual) PT (9.7-12.2) SECONDS INR APTT (21-34) SECONDS Puncture Site Rr pCO2 30 L (35-45) mm/Hg pO2 91 (80-100) mm/Hg HCO3 21.6 (21-28) mmol/L ABG pH 7.42 (7.35-7.45) ABG Total CO2 20.4 L (22-28) mmol/L ABG O2 Saturation 98.9 H (95-98) % ABG Base Excess -4.2 L (-2.0-3.0) mmol/L ABG Hemoglobin 9.4 L (11.7-17.4) g/dL ABG Carboxyhemoglobin 2.4 H (0.5-1.5) % POC ABG HHb (Measured) 1.1 (0.0-5.0) % ABG Methemoglobin 1.2 (0.0-3.0) % Collin Test Pos A-a O2 Difference 121.0 mm/Hg Respiratory Index 1.3 Hgb O2 Saturation 95.2 (95.0-98.0) % Vent Mode Prvc Mechanical Rate 14 FiO2 35.0 % Tidal Volume 450 PEEP 5 Sodium (132-148) mmol/L Potassium (3.6-5.2) mmol/L Chloride (98-107) mmol/L Carbon Dioxide (22-30) mmol/L Anion Gap (10-20) BUN (9-20) mg/dL Creatinine (0.8-1.5) mg/dL Est GFR ( Amer) Est GFR (Non-Af Amer) POC Glucose (mg/dL) 79 63 L (65-110) mg/dL Random Glucose (75-110) mg/dL Calcium (8.6-10.4) mg/dl Total Bilirubin (0.2-1.3) mg/dL AST (17-59) U/L ALT (21-72) U/L Alkaline Phosphatase (38-126) U/L Total Protein (6.3-8.3) g/dL Albumin (3.5-5.0) g/dL Globulin (2.2-3.9) gm/dL Albumin/Globulin Ratio (1.0-2.1) 08/30/17 08/30/17 08/30/17 Range/Units 23:50 17:17 11:30 WBC (4.8-10.8) K/uL RBC (4.40-5.90) Mil/uL Hgb (12.0-18.0) g/dL Hct (35.0-51.0) % MCV (80.0-94.0) fL MCH (27.0-31.0) pg MCHC (33.0-37.0) g/dL RDW (11.5-14.5) % Plt Count (130-400) K/uL MPV (7.2-11.7) fL Neut % (Auto) (50.0-75.0) % Lymph % (Auto) (20.0-40.0) % Tillman % (Auto) (0.0-10.0) % Eos % (Auto) (0.0-4.0) % Baso % (Auto) (0.0-2.0) % Neut # (Auto) (1.8-7.0) K/uL Lymph # (Auto) (1.0-4.3) K/uL Tillman # (Auto) (0.0-0.8) K/uL Eos # (Auto) (0.0-0.7) K/uL Baso # (Auto) (0.0-0.2) K/uL Neutrophils % (Manual) (50-75) % Band Neutrophils % (0-2) % Lymphocytes % (Manual) (20-40) % Reactive Lymphs % (0-0) % Monocytes % (Manual) (0-10) % Platelet Estimate (NORMAL) Large Platelets Anisocytosis (manual) PT (9.7-12.2) SECONDS INR APTT (21-34) SECONDS Puncture Site pCO2 (35-45) mm/Hg pO2 (80-100) mm/Hg HCO3 (21-28) mmol/L ABG pH (7.35-7.45) ABG Total CO2 (22-28) mmol/L ABG O2 Saturation (95-98) % ABG Base Excess (-2.0-3.0) mmol/L ABG Hemoglobin (11.7-17.4) g/dL ABG Carboxyhemoglobin (0.5-1.5) % POC ABG HHb (Measured) (0.0-5.0) % ABG Methemoglobin (0.0-3.0) % Collin Test A-a O2 Difference mm/Hg Respiratory Index Hgb O2 Saturation (95.0-98.0) % Vent Mode Mechanical Rate FiO2 % Tidal Volume PEEP Sodium (132-148) mmol/L Potassium (3.6-5.2) mmol/L Chloride (98-107) mmol/L Carbon Dioxide (22-30) mmol/L Anion Gap (10-20) BUN (9-20) mg/dL Creatinine (0.8-1.5) mg/dL Est GFR ( Amer) Est GFR (Non-Af Amer) POC Glucose (mg/dL) 104 103 110 (65-110) mg/dL Random Glucose (75-110) mg/dL Calcium (8.6-10.4) mg/dl Total Bilirubin (0.2-1.3) mg/dL AST (17-59) U/L ALT (21-72) U/L Alkaline Phosphatase (38-126) U/L Total Protein (6.3-8.3) g/dL Albumin (3.5-5.0) g/dL Globulin (2.2-3.9) gm/dL Albumin/Globulin Ratio (1.0-2.1) Laboratory Results - last 24 hr 08/30/17 08/30/17 08/30/17 11:30 17:17 23:50 WBC RBC Hgb Hct MCV MCH MCHC RDW Plt Count MPV Neut % (Auto) Lymph % (Auto) Tillman % (Auto) Eos % (Auto) Baso % (Auto) Neut # (Auto) Lymph # (Auto) Tillman # (Auto) Eos # (Auto) Baso # (Auto) Neutrophils % (Manual) Band Neutrophils % Lymphocytes % (Manual) Reactive Lymphs % Monocytes % (Manual) Platelet Estimate Large Platelets Anisocytosis (manual) PT INR APTT Puncture Site pCO2 pO2 HCO3 ABG pH ABG Total CO2 ABG O2 Saturation ABG Base Excess ABG Hemoglobin ABG Carboxyhemoglobin POC ABG HHb (Measured) ABG Methemoglobin Collin Test A-a O2 Difference Respiratory Index Hgb O2 Saturation Vent Mode Mechanical Rate FiO2 Tidal Volume PEEP Sodium Potassium Chloride Carbon Dioxide Anion Gap BUN Creatinine Est GFR ( Amer) Est GFR (Non-Af Amer) POC Glucose (mg/dL) 110 103 104 Random Glucose Calcium Total Bilirubin AST ALT Alkaline Phosphatase Total Protein Albumin Globulin Albumin/Globulin Ratio 08/31/17 08/31/17 08/31/17 05:30 05:34 05:38 WBC RBC Hgb Hct MCV MCH MCHC RDW Plt Count MPV Neut % (Auto) Lymph % (Auto) Tillman % (Auto) Eos % (Auto) Baso % (Auto) Neut # (Auto) Lymph # (Auto) Tillman # (Auto) Eos # (Auto) Baso # (Auto) Neutrophils % (Manual) Band Neutrophils % Lymphocytes % (Manual) Reactive Lymphs % Monocytes % (Manual) Platelet Estimate Large Platelets Anisocytosis (manual) PT INR APTT Puncture Site Rr pCO2 30 L pO2 91 HCO3 21.6 ABG pH 7.42 ABG Total CO2 20.4 L ABG O2 Saturation 98.9 H ABG Base Excess -4.2 L ABG Hemoglobin 9.4 L ABG Carboxyhemoglobin 2.4 H POC ABG HHb (Measured) 1.1 ABG Methemoglobin 1.2 Collin Test Pos A-a O2 Difference 121.0 Respiratory Index 1.3 Hgb O2 Saturation 95.2 Vent Mode Prvc Mechanical Rate 14 FiO2 35.0 Tidal Volume 450 PEEP 5 Sodium Potassium Chloride Carbon Dioxide Anion Gap BUN Creatinine Est GFR ( Amer) Est GFR (Non-Af Amer) POC Glucose (mg/dL) 63 L 79 Random Glucose Calcium Total Bilirubin AST ALT Alkaline Phosphatase Total Protein Albumin Globulin Albumin/Globulin Ratio 08/31/17 08/31/17 08/31/17 06:35 06:36 07:25 WBC 11.4 H RBC 3.25 L Hgb 9.0 L Hct 27.4 L MCV 84.3 MCH 27.6 MCHC 32.7 L RDW 17.2 H Plt Count 213 MPV 8.1 Neut % (Auto) 59.0 Lymph % (Auto) 14.6 L Tillman % (Auto) 25.3 H Eos % (Auto) 0.3 Baso % (Auto) 0.8 Neut # (Auto) 6.8 Lymph # (Auto) 1.7 Tillman # (Auto) 2.9 H Eos # (Auto) 0.0 Baso # (Auto) 0.1 Neutrophils % (Manual) 55 Band Neutrophils % 8 H Lymphocytes % (Manual) 11 L Reactive Lymphs % 1 H Monocytes % (Manual) 25 H Platelet Estimate Normal Large Platelets Present Anisocytosis (manual) Slight PT 16.5 H INR 1.5 APTT 33 Puncture Site pCO2 pO2 HCO3 ABG pH ABG Total CO2 ABG O2 Saturation ABG Base Excess ABG Hemoglobin ABG Carboxyhemoglobin POC ABG HHb (Measured) ABG Methemoglobin Collin Test A-a O2 Difference Respiratory Index Hgb O2 Saturation Vent Mode Mechanical Rate FiO2 Tidal Volume PEEP Sodium 146 Potassium 4.9 Chloride 115 H Carbon Dioxide 21 L Anion Gap 15 BUN 16 Creatinine 0.6 L Est GFR ( Amer) > 60 Est GFR (Non-Af Amer) > 60 POC Glucose (mg/dL) Random Glucose 72 L Calcium 7.7 L Total Bilirubin 4.3 H AST 37 ALT 9 L D Alkaline Phosphatase 82 Total Protein 6.8 Albumin 2.2 L Globulin 4.6 H Albumin/Globulin Ratio 0.5 L Fingerstick Blood Sugar Results: 79 Review of Systems - Review of Systems Systems not reviewed;Unavailable: Intubated Assessment/Plan - Assessment and Plan (Free Text) Assessment: 77 year old male with PMHx of Arthritis, Asthma, COPD, Severe Dementia, HTN, Pneumonia, Seizures, TIA, and Right AKA presents from halfway due to fever of an unknown duration. Code Sepsis called in ED. Patient admitted to ICU for evaluation and treatment of SEPSIS. Patient began desating requiring emergent intubation. 08/27: Mycoplasma PNA IgM - POSITIVE Plan: Neuro: GCS: 8T Sedation: Etomidate for Intubation then further sedated with 2mg Ativan. A: Severe Dementia, Hx of Seizure Home Carbamazepine 100mg Q8 | Home Valproic Acid 250mg PEG QID Cardio: A: HTN, Hx of TIA, Hypotension,HLD Crestor 5mg PO HS Pulm: A: Hypoxic Res. Failure, Asthma, COPD, Mycoplasma Pneumonia CXR (Admission): Stable postsurgical changes in the right lung with low lung volume and shift of mediastinal to the right. No acute findings. ABG (Adm): 7.4//326/21.6 ABG ( 08/27): 7.41/27/115/19.8 ABG (08/31): 7.42/30/91/21.6 DuoNebs Schedule Wean Fi02 as tolerated Daily CPAP trials. Tolerated CPAP for 12.5 hours yesterday then hyperventilated. Endo A: Hypoglycemia (Stable) GI: A: Enterocolitis CT chest Abd/Pelvis (08/27): Enterocolits; ascities;mild bladder wall thickening with air in the bladder, iatrogenic versus infectious. Started on Flagyl Today. Renal: A: Hypocalcemia (stable), Hypokalemia (Resolved) Replace electrolytes PRN Heme/Onc: A: Normocytic Anemia HgB Stable ID A: Code Sepsis Febrile this morning with Increased WBC Blood/Urine/Sputum Cultures Ordered today ( 08/31) Blood Cultures - NEGATIVE for 3 days. 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 Azithromax restarted today, Start Flagyl for Eneterocolitis. ID on Consult, Recs Appreciated. Integumentary A: Left Lower ext wounds Wound Care. Proph Protonix Lovenox Diet: Tube Feeding - Jevity 1.5 Lines: Right IJ Central Line Patient discussed with ICU Attending Niraj Negrete, PGY-1 <Giovanni Washington - Last Filed: 08/31/17 17:21> CCU Objective - Vital Signs / Intake & Output Vital Signs (Last 4 hours): Vital Signs Temp Pulse Resp BP Pulse Ox 08/31/17 16:01 102 H 17 115/65 95 08/31/17 16:00 98.1 F 96 08/31/17 15:01 103 H 13 101/56 L 98 08/31/17 14:01 112 H 22 109/60 98 Intake and Output (Last 8hrs): Intake & Output 08/31/17 08/31/17 08/31/17 06:59 14:59 22:59 Intake Total 520 520 180 Output Total 500 Balance 20 520 180 Weight 142 lb 8 oz Intake: Intake, IV Amount 200 200 100 Left Medial Port Internal 200 200 100 Jugular Tube Feeding 320 320 80 Output: Urine 500 Urine, Voided 500 Other: # Bowel Movements 1 - Medications Active Medications: Active Medications Generic Name Dose Route Start Last Admin Trade Name Freq PRN Reason Stop Dose Admin Acetaminophen 650 mg 08/25/17 17:20 08/31/17 09:32 Tylenol 650 Mg Supp NC 650 mg Q4 PRN Administration Fever >100.4 F Albuterol/Ipratropium 3 ml 08/28/17 08:00 08/31/17 01:46 Duoneb 3 Mg/0.5 Mg (3 Ml) Ud INH 3 ml RQ6 AMY Administration Bisacodyl 10 mg 08/29/17 08:30 Dulcolax NC ONCE PRN consipation Carbamazepine 100 mg 08/24/17 22:00 08/31/17 13:46 Tegretol PEG 100 mg Q8 AMY Administration Enoxaparin Sodium 40 mg 08/24/17 18:00 08/31/17 10:17 Lovenox SC 40 mg DAILY AMY Administration Piperacillin Sod/Tazobactam 100 mls @ 100 mls/hr 08/27/17 11:00 08/31/17 16: 49 Sod 3.375 gm/ Sodium Chloride IVPB 100 mls/hr Q6H AMY Administration Protocol Metronidazole 500 mg in 100 mls @ 100 mls/hr 08/31/17 14:00 08/31/17 13:36 Flagyl IVPB 100 mls/hr Q8 AMY Administration Protocol Azithromycin 500 mg/ Sodium 250 mls @ 250 mls/hr 08/31/17 14:30 08/31/17 13: 45 Chloride IVPB 250 mls/hr DAILY AMY Administration Protocol Pantoprazole Sodium 40 mg 08/29/17 10:00 08/31/17 10:17 Protonix Susp PO 40 mg DAILY AMY Administration Rosuvastatin Calcium 5 mg 08/24/17 22:00 08/30/17 21:57 Crestor PO 5 mg HS AMY Administration Valproate Sodium 250 mg 08/24/17 18:00 08/31/17 17:06 Depakene Oral Soln PEG 250 mg QID AMY Administration - Patient Studies Lab Studies: Lab Studies 08/31/17 08/31/17 08/31/17 Range/Units 11:29 07:25 06:36 WBC (4.8-10.8) K/uL RBC (4.40-5.90) Mil/uL Hgb (12.0-18.0) g/dL Hct (35.0-51.0) % MCV (80.0-94.0) fL MCH (27.0-31.0) pg MCHC (33.0-37.0) g/dL RDW (11.5-14.5) % Plt Count (130-400) K/uL MPV (7.2-11.7) fL Neut % (Auto) (50.0-75.0) % Lymph % (Auto) (20.0-40.0) % Tillman % (Auto) (0.0-10.0) % Eos % (Auto) (0.0-4.0) % Baso % (Auto) (0.0-2.0) % Neut # (Auto) (1.8-7.0) K/uL Lymph # (Auto) (1.0-4.3) K/uL Tillman # (Auto) (0.0-0.8) K/uL Eos # (Auto) (0.0-0.7) K/uL Baso # (Auto) (0.0-0.2) K/uL Neutrophils % (Manual) (50-75) % Band Neutrophils % (0-2) % Lymphocytes % (Manual) (20-40) % Reactive Lymphs % (0-0) % Monocytes % (Manual) (0-10) % Platelet Estimate (NORMAL) Large Platelets Anisocytosis (manual) PT 16.5 H (9.7-12.2) SECONDS INR 1.5 APTT 33 (21-34) SECONDS Puncture Site pCO2 (35-45) mm/Hg pO2 (80-100) mm/Hg HCO3 (21-28) mmol/L ABG pH (7.35-7.45) ABG Total CO2 (22-28) mmol/L ABG O2 Saturation (95-98) % ABG Base Excess (-2.0-3.0) mmol/L ABG Hemoglobin (11.7-17.4) g/dL ABG Carboxyhemoglobin (0.5-1.5) % POC ABG HHb (Measured) (0.0-5.0) % ABG Methemoglobin (0.0-3.0) % Collin Test A-a O2 Difference mm/Hg Respiratory Index Hgb O2 Saturation (95.0-98.0) % Vent Mode Mechanical Rate FiO2 % Tidal Volume PEEP Sodium 146 (132-148) mmol/L Potassium 4.9 (3.6-5.2) mmol/L Chloride 115 H (98-107) mmol/L Carbon Dioxide 21 L (22-30) mmol/L Anion Gap 15 (10-20) BUN 16 (9-20) mg/dL Creatinine 0.6 L (0.8-1.5) mg/dL Est GFR ( Amer) > 60 Est GFR (Non-Af Amer) > 60 POC Glucose (mg/dL) 91 (65-110) mg/dL Random Glucose 72 L (75-110) mg/dL Calcium 7.7 L (8.6-10.4) mg/dl Total Bilirubin 4.3 H (0.2-1.3) mg/dL AST 37 (17-59) U/L ALT 9 L D (21-72) U/L Alkaline Phosphatase 82 (38-126) U/L Total Protein 6.8 (6.3-8.3) g/dL Albumin 2.2 L (3.5-5.0) g/dL Globulin 4.6 H (2.2-3.9) gm/dL Albumin/Globulin Ratio 0.5 L (1.0-2.1) 08/31/17 08/31/17 08/31/17 Range/Units 06:35 05:38 05:34 WBC 11.4 H (4.8-10.8) K/uL RBC 3.25 L (4.40-5.90) Mil/uL Hgb 9.0 L (12.0-18.0) g/dL Hct 27.4 L (35.0-51.0) % MCV 84.3 (80.0-94.0) fL MCH 27.6 (27.0-31.0) pg MCHC 32.7 L (33.0-37.0) g/dL RDW 17.2 H (11.5-14.5) % Plt Count 213 (130-400) K/uL MPV 8.1 (7.2-11.7) fL Neut % (Auto) 59.0 (50.0-75.0) % Lymph % (Auto) 14.6 L (20.0-40.0) % Tillman % (Auto) 25.3 H (0.0-10.0) % Eos % (Auto) 0.3 (0.0-4.0) % Baso % (Auto) 0.8 (0.0-2.0) % Neut # (Auto) 6.8 (1.8-7.0) K/uL Lymph # (Auto) 1.7 (1.0-4.3) K/uL Tillman # (Auto) 2.9 H (0.0-0.8) K/uL Eos # (Auto) 0.0 (0.0-0.7) K/uL Baso # (Auto) 0.1 (0.0-0.2) K/uL Neutrophils % (Manual) 55 (50-75) % Band Neutrophils % 8 H (0-2) % Lymphocytes % (Manual) 11 L (20-40) % Reactive Lymphs % 1 H (0-0) % Monocytes % (Manual) 25 H (0-10) % Platelet Estimate Normal (NORMAL) Large Platelets Present Anisocytosis (manual) Slight PT (9.7-12.2) SECONDS INR APTT (21-34) SECONDS Puncture Site pCO2 (35-45) mm/Hg pO2 (80-100) mm/Hg HCO3 (21-28) mmol/L ABG pH (7.35-7.45) ABG Total CO2 (22-28) mmol/L ABG O2 Saturation (95-98) % ABG Base Excess (-2.0-3.0) mmol/L ABG Hemoglobin (11.7-17.4) g/dL ABG Carboxyhemoglobin (0.5-1.5) % POC ABG HHb (Measured) (0.0-5.0) % ABG Methemoglobin (0.0-3.0) % Collin Test A-a O2 Difference mm/Hg Respiratory Index Hgb O2 Saturation (95.0-98.0) % Vent Mode Mechanical Rate FiO2 % Tidal Volume PEEP Sodium (132-148) mmol/L Potassium (3.6-5.2) mmol/L Chloride (98-107) mmol/L Carbon Dioxide (22-30) mmol/L Anion Gap (10-20) BUN (9-20) mg/dL Creatinine (0.8-1.5) mg/dL Est GFR ( Amer) Est GFR (Non-Af Amer) POC Glucose (mg/dL) 79 63 L (65-110) mg/dL Random Glucose (75-110) mg/dL Calcium (8.6-10.4) mg/dl Total Bilirubin (0.2-1.3) mg/dL AST (17-59) U/L ALT (21-72) U/L Alkaline Phosphatase (38-126) U/L Total Protein (6.3-8.3) g/dL Albumin (3.5-5.0) g/dL Globulin (2.2-3.9) gm/dL Albumin/Globulin Ratio (1.0-2.1) 08/31/17 08/30/17 08/30/17 Range/Units 05:30 23:50 17:17 WBC (4.8-10.8) K/uL RBC (4.40-5.90) Mil/uL Hgb (12.0-18.0) g/dL Hct (35.0-51.0) % MCV (80.0-94.0) fL MCH (27.0-31.0) pg MCHC (33.0-37.0) g/dL RDW (11.5-14.5) % Plt Count (130-400) K/uL MPV (7.2-11.7) fL Neut % (Auto) (50.0-75.0) % Lymph % (Auto) (20.0-40.0) % Tillman % (Auto) (0.0-10.0) % Eos % (Auto) (0.0-4.0) % Baso % (Auto) (0.0-2.0) % Neut # (Auto) (1.8-7.0) K/uL Lymph # (Auto) (1.0-4.3) K/uL Tillman # (Auto) (0.0-0.8) K/uL Eos # (Auto) (0.0-0.7) K/uL Baso # (Auto) (0.0-0.2) K/uL Neutrophils % (Manual) (50-75) % Band Neutrophils % (0-2) % Lymphocytes % (Manual) (20-40) % Reactive Lymphs % (0-0) % Monocytes % (Manual) (0-10) % Platelet Estimate (NORMAL) Large Platelets Anisocytosis (manual) PT (9.7-12.2) SECONDS INR APTT (21-34) SECONDS Puncture Site Rr pCO2 30 L (35-45) mm/Hg pO2 91 (80-100) mm/Hg HCO3 21.6 (21-28) mmol/L ABG pH 7.42 (7.35-7.45) ABG Total CO2 20.4 L (22-28) mmol/L ABG O2 Saturation 98.9 H (95-98) % ABG Base Excess -4.2 L (-2.0-3.0) mmol/L ABG Hemoglobin 9.4 L (11.7-17.4) g/dL ABG Carboxyhemoglobin 2.4 H (0.5-1.5) % POC ABG HHb (Measured) 1.1 (0.0-5.0) % ABG Methemoglobin 1.2 (0.0-3.0) % Collin Test Pos A-a O2 Difference 121.0 mm/Hg Respiratory Index 1.3 Hgb O2 Saturation 95.2 (95.0-98.0) % Vent Mode Prvc Mechanical Rate 14 FiO2 35.0 % Tidal Volume 450 PEEP 5 Sodium (132-148) mmol/L Potassium (3.6-5.2) mmol/L Chloride (98-107) mmol/L Carbon Dioxide (22-30) mmol/L Anion Gap (10-20) BUN (9-20) mg/dL Creatinine (0.8-1.5) mg/dL Est GFR ( Amer) Est GFR (Non-Af Amer) POC Glucose (mg/dL) 104 103 (65-110) mg/dL Random Glucose (75-110) mg/dL Calcium (8.6-10.4) mg/dl Total Bilirubin (0.2-1.3) mg/dL AST (17-59) U/L ALT (21-72) U/L Alkaline Phosphatase (38-126) U/L Total Protein (6.3-8.3) g/dL Albumin (3.5-5.0) g/dL Globulin (2.2-3.9) gm/dL Albumin/Globulin Ratio (1.0-2.1) Laboratory Results - last 24 hr 08/30/17 08/30/17 08/31/17 17:17 23:50 05:30 WBC RBC Hgb Hct MCV MCH MCHC RDW Plt Count MPV Neut % (Auto) Lymph % (Auto) Tillman % (Auto) Eos % (Auto) Baso % (Auto) Neut # (Auto) Lymph # (Auto) Tillman # (Auto) Eos # (Auto) Baso # (Auto) Neutrophils % (Manual) Band Neutrophils % Lymphocytes % (Manual) Reactive Lymphs % Monocytes % (Manual) Platelet Estimate Large Platelets Anisocytosis (manual) PT INR APTT Puncture Site Rr pCO2 30 L pO2 91 HCO3 21.6 ABG pH 7.42 ABG Total CO2 20.4 L ABG O2 Saturation 98.9 H ABG Base Excess -4.2 L ABG Hemoglobin 9.4 L ABG Carboxyhemoglobin 2.4 H POC ABG HHb (Measured) 1.1 ABG Methemoglobin 1.2 Collin Test Pos A-a O2 Difference 121.0 Respiratory Index 1.3 Hgb O2 Saturation 95.2 Vent Mode Prvc Mechanical Rate 14 FiO2 35.0 Tidal Volume 450 PEEP 5 Sodium Potassium Chloride Carbon Dioxide Anion Gap BUN Creatinine Est GFR ( Amer) Est GFR (Non-Af Amer) POC Glucose (mg/dL) 103 104 Random Glucose Calcium Total Bilirubin AST ALT Alkaline Phosphatase Total Protein Albumin Globulin Albumin/Globulin Ratio 08/31/17 08/31/17 08/31/17 05:34 05:38 06:35 WBC 11.4 H RBC 3.25 L Hgb 9.0 L Hct 27.4 L MCV 84.3 MCH 27.6 MCHC 32.7 L RDW 17.2 H Plt Count 213 MPV 8.1 Neut % (Auto) 59.0 Lymph % (Auto) 14.6 L Tillman % (Auto) 25.3 H Eos % (Auto) 0.3 Baso % (Auto) 0.8 Neut # (Auto) 6.8 Lymph # (Auto) 1.7 Tillman # (Auto) 2.9 H Eos # (Auto) 0.0 Baso # (Auto) 0.1 Neutrophils % (Manual) 55 Band Neutrophils % 8 H Lymphocytes % (Manual) 11 L Reactive Lymphs % 1 H Monocytes % (Manual) 25 H Platelet Estimate Normal Large Platelets Present Anisocytosis (manual) Slight PT INR APTT Puncture Site pCO2 pO2 HCO3 ABG pH ABG Total CO2 ABG O2 Saturation ABG Base Excess ABG Hemoglobin ABG Carboxyhemoglobin POC ABG HHb (Measured) ABG Methemoglobin Collin Test A-a O2 Difference Respiratory Index Hgb O2 Saturation Vent Mode Mechanical Rate FiO2 Tidal Volume PEEP Sodium Potassium Chloride Carbon Dioxide Anion Gap BUN Creatinine Est GFR ( Amer) Est GFR (Non-Af Amer) POC Glucose (mg/dL) 63 L 79 Random Glucose Calcium Total Bilirubin AST ALT Alkaline Phosphatase Total Protein Albumin Globulin Albumin/Globulin Ratio 08/31/17 08/31/17 08/31/17 06:36 07:25 11:29 WBC RBC Hgb Hct MCV MCH MCHC RDW Plt Count MPV Neut % (Auto) Lymph % (Auto) Tillman % (Auto) Eos % (Auto) Baso % (Auto) Neut # (Auto) Lymph # (Auto) Tillman # (Auto) Eos # (Auto) Baso # (Auto) Neutrophils % (Manual) Band Neutrophils % Lymphocytes % (Manual) Reactive Lymphs % Monocytes % (Manual) Platelet Estimate Large Platelets Anisocytosis (manual) PT 16.5 H INR 1.5 APTT 33 Puncture Site pCO2 pO2 HCO3 ABG pH ABG Total CO2 ABG O2 Saturation ABG Base Excess ABG Hemoglobin ABG Carboxyhemoglobin POC ABG HHb (Measured) ABG Methemoglobin Collin Test A-a O2 Difference Respiratory Index Hgb O2 Saturation Vent Mode Mechanical Rate FiO2 Tidal Volume PEEP Sodium 146 Potassium 4.9 Chloride 115 H Carbon Dioxide 21 L Anion Gap 15 BUN 16 Creatinine 0.6 L Est GFR ( Amer) > 60 Est GFR (Non-Af Amer) > 60 POC Glucose (mg/dL) 91 Random Glucose 72 L Calcium 7.7 L Total Bilirubin 4.3 H AST 37 ALT 9 L D Alkaline Phosphatase 82 Total Protein 6.8 Albumin 2.2 L Globulin 4.6 H Albumin/Globulin Ratio 0.5 L Assessment/Plan (1) Respiratory failure Current Visit: Yes Status: Acute (2) Anemia Current Visit: Yes Status: Acute (3) Pneumonia Current Visit: No Status: Acute Attending/Attestation - Attestation I have personally seen and examined this patient.: Yes I have fully participated in the care of the patient.: Yes I have reviewed all pertinent clinical information: Yes Notes (Text): 08/31/17 17:20 patient seen and examinedin the intensive care unit. Case discussed with house staff in the morning rounds. Not tolerating weaning/CPAP trial today Continue antibiotics Continue PEG feeding Plan cultures for elevated white count"
[2017-08-31] MEDS: metroNIDAZOLE IV 500 mg/100 ml 500 MG/100 ML BAG IVPB SCH ×2 (13:36→21:55)
[2017-08-31] MEDS: Azithromycin 500 MG in Sodium Chloride 0.9% 250 ML IVPB SCH (13:45)
--- NOTE | 2017-08-31 14:20 | CP.PCM.CON ---
History of Present Illness - History of Present Illness History of Present Illness: Palliative consult requested by Doctor Anthony for Code status discussion Patient is a 77 o [facility]. Patient was recently discharged from here where he was treated for pneumonia. Upon thid admission patient was diagnosed with sepsis and needed to be intubated for respiratory support. IV antibiotics initiated. he left foot pressure sore found infected with Staph infection. PMH: Severe dementia, CPD, HTN, TIA, seizures, left heel presure sore Soc. Hx: single, retired, has a legal Guardian Fam. Hx: unknown Review of Systems - Review of Systems All systems: reviewed and no additional remarkable complaints except Review of Systems: ROS obtained from nursing due t cndtion. Patient is febrile, T 102.7 this morning Past Patient History - Infectious Disease Hx of Infectious Diseases: None - Past Medical History & Family History Past Medical History?: Yes - Past Social History Smoking Status: Unknown If Ever Smoked - CARDIAC Hx Hypertension: Yes - PULMONARY Hx Chronic Obstructive Pulmonary Disease (COPD): Yes - NEUROLOGICAL Hx Dementia: Yes Hx Seizures: Yes Hx Transient Ischemic Attacks (TIA): Yes - HEENT Hx HEENT Problems: Yes Other/Comment: RT EYELID DROOP - RENAL Hx Chronic Kidney Disease: No - ENDOCRINE/METABOLIC Hx Endocrine Disorders: No - HEMATOLOGICAL/ONCOLOGICAL Hx Anemia: Yes - INTEGUMENTARY Hx Dermatological Problems: Yes Other/Comment: multiple wounds - MUSCULOSKELETAL/RHEUMATOLOGICAL Hx Arthritis: Yes (BACK; 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) - GASTROINTESTINAL Hx Gastrointestinal Disorders: No - GENITOURINARY/GYNECOLOGICAL Hx Genitourinary Disorders: Yes - PSYCHIATRIC Hx Substance Use: No - SURGICAL HISTORY Hx Surgeries: Yes Hx Amputation: Yes (right AKA) - ANESTHESIA Hx Anesthesia: Yes Hx Anesthesia Reactions: No Hx Malignant Hyperthermia: No Meds Allergies/Adverse Reactions: Allergies Allergy/AdvReac Type Severity Reaction Status Date / Time No Known Allergies Allergy Verified 07/25/17 01:13 - Medications Medications: Current Medications Acetaminophen (Tylenol 650 Mg Supp) 650 mg AK Q4 PRN PRN Reason: Fever >100.4 F Last Admin: 08/31/17 09:32 Dose: 650 mg Albuterol/Ipratropium (Duoneb 3 Mg/0.5 Mg (3 Ml) Ud) 3 ml INH RQ6 [facility] Last Admin: 08/31/17 01:46 Dose: 3 ml Bisacodyl (Dulcolax) 10 mg AK ONCE PRN PRN Reason: consipation Carbamazepine (Tegretol) 100 mg PEG Q8 [facility] Last Admin: 08/31/17 13:46 Dose: 100 mg Enoxaparin Sodium (Lovenox) 40 mg SC DAILY [facility] Last Admin: 08/31/17 10:17 Dose: 40 mg Piperacillin Sod/Tazobactam (Sod 3.375 gm/ Sodium Chloride) 100 mls @ 100 mls/ hr IVPB Q6H [facility] PRN Reason: Protocol Last Admin: 08/31/17 10:16 Dose: 100 mls/hr Metronidazole (Flagyl) 500 mg in 100 mls @ 100 mls/hr IVPB Q8 [facility] PRN Reason: Protocol Last Admin: 08/31/17 13:36 Dose: 100 mls/hr Azithromycin 500 mg/ Sodium (Chloride) 250 mls @ 250 mls/hr IVPB DAILY [facility] PRN Reason: Protocol Last Admin: 08/31/17 13:45 Dose: 250 mls/hr Pantoprazole Sodium (Protonix Susp) 40 mg PO DAILY [facility] Last Admin: 08/31/17 10:17 Dose: 40 mg Rosuvastatin Calcium (Crestor) 5 mg PO HS [facility] Last Admin: 08/30/17 21:57 Dose: 5 mg Valproate Sodium (Depakene Oral Soln) 250 mg PEG QID [facility] Last Admin: 08/31/17 13:46 Dose: 250 mg Physical Exam - Constitutional Appears: In Acute Distress, Chronically Ill - Head Exam Head Exam: ATRAUMATIC, NORMAL INSPECTION, NORMOCEPHALIC - Eye Exam Eye Exam: EOMI, Normal appearance, PERRL Pupil Exam: NORMAL ACCOMODATION, PERRL - ENT Exam ENT Exam: Mucous Membranes Dry Additional comments: ETT - Neck Exam Neck exam: Positive for: Normal Inspection - Respiratory Exam Respiratory Exam: Decreased Breath Sounds - Cardiovascular Exam Cardiovascular Exam: Tachycardia - GI/Abdominal Exam GI & Abdominal Exam: Diminished Bowel Sounds - Rectal Exam Rectal Exam: Deferred - Exam Exam: NORMAL INSPECTION - Extremities Exam Additional comments: left heel pressure sore - Back Exam Back exam: NORMAL INSPECTION - Neurological Exam Neurological exam: Motor Sensory Deficit - Psychiatric Exam Psychiatric exam: Flat Affect - Skin Skin Exam: Pallor Results - Vital Signs Recent Vital Signs: Last Vital Signs Temp 99.3 F 08/31/17 10:32 Pulse 108 H 08/31/17 07:00 Resp 30 H 08/31/17 07:00 BP 126/71 08/31/17 06:01 Pulse Ox 98 08/31/17 07:00 - Labs Result Diagrams: 08/31/17 06:35 08/31/17 07:25 Labs: Laboratory Results - last 24 hr 08/30/17 08/30/17 08/31/17 17:17 23:50 05:30 WBC RBC Hgb Hct MCV MCH MCHC RDW Plt Count MPV Neut % (Auto) Lymph % (Auto) Rutherford % (Auto) Eos % (Auto) Baso % (Auto) Neut # (Auto) Lymph # (Auto) [place] # (Auto) Eos # (Auto) Baso # (Auto) Neutrophils % (Manual) Band Neutrophils % Lymphocytes % (Manual) Reactive Lymphs % Monocytes % (Manual) Platelet Estimate Large Platelets Anisocytosis (manual) PT INR APTT Puncture Site Rr pCO2 30 L pO2 91 HCO3 21.6 ABG pH 7.42 ABG Total CO2 20.4 L ABG O2 Saturation 98.9 H ABG Base Excess -4.2 L ABG Hemoglobin 9.4 L ABG Carboxyhemoglobin 2.4 H POC ABG HHb (Measured) 1.1 ABG Methemoglobin 1.2 Collin Test Pos A-a O2 Difference 121.0 Respiratory Index 1.3 Hgb O2 Saturation 95.2 Vent Mode Prvc Mechanical Rate 14 FiO2 35.0 Tidal Volume 450 PEEP 5 Sodium Potassium Chloride Carbon Dioxide Anion Gap BUN Creatinine Est GFR ( Amer) Est GFR (Non-Af Amer) POC Glucose (mg/dL) 103 104 Random Glucose Calcium Total Bilirubin AST ALT Alkaline Phosphatase Total Protein Albumin Globulin Albumin/Globulin Ratio 08/31/17 08/31/17 08/31/17 05:34 05:38 06:35 WBC 11.4 H RBC 3.25 L Hgb 9.0 L Hct 27.4 L MCV 84.3 MCH 27.6 MCHC 32.7 L RDW 17.2 H Plt Count 213 MPV 8.1 Neut % (Auto) 59.0 Lymph % (Auto) 14.6 L Rutherford % (Auto) 25.3 H Eos % (Auto) 0.3 Baso % (Auto) 0.8 Neut # (Auto) 6.8 Lymph # (Auto) 1.7 Rutherford # (Auto) 2.9 H Eos # (Auto) 0.0 Baso # (Auto) 0.1 Neutrophils % (Manual) 55 Band Neutrophils % 8 H Lymphocytes % (Manual) 11 L Reactive Lymphs % 1 H Monocytes % (Manual) 25 H Platelet Estimate Normal Large Platelets Present Anisocytosis (manual) Slight PT INR APTT Puncture Site pCO2 pO2 HCO3 ABG pH ABG Total CO2 ABG O2 Saturation ABG Base Excess ABG Hemoglobin ABG Carboxyhemoglobin POC ABG HHb (Measured) ABG Methemoglobin Collin Test A-a O2 Difference Respiratory Index Hgb O2 Saturation Vent Mode Mechanical Rate FiO2 Tidal Volume PEEP Sodium Potassium Chloride Carbon Dioxide Anion Gap BUN Creatinine Est GFR ( Amer) Est GFR (Non-Af Amer) POC Glucose (mg/dL) 63 L 79 Random Glucose Calcium Total Bilirubin AST ALT Alkaline Phosphatase Total Protein Albumin Globulin Albumin/Globulin Ratio 08/31/17 08/31/17 08/31/17 06:36 07:25 11:29 WBC RBC Hgb Hct MCV MCH MCHC RDW Plt Count MPV Neut % (Auto) Lymph % (Auto) Rutherford % (Auto) Eos % (Auto) Baso % (Auto) Neut # (Auto) Lymph # (Auto) [place] # (Auto) Eos # (Auto) Baso # (Auto) Neutrophils % (Manual) Band Neutrophils % Lymphocytes % (Manual) Reactive Lymphs % Monocytes % (Manual) Platelet Estimate Large Platelets Anisocytosis (manual) PT 16.5 H INR 1.5 APTT 33 Puncture Site pCO2 pO2 HCO3 ABG pH ABG Total CO2 ABG O2 Saturation ABG Base Excess ABG Hemoglobin ABG Carboxyhemoglobin POC ABG HHb (Measured) ABG Methemoglobin Collin Test A-a O2 Difference Respiratory Index Hgb O2 Saturation Vent Mode Mechanical Rate FiO2 Tidal Volume PEEP Sodium 146 Potassium 4.9 Chloride 115 H Carbon Dioxide 21 L Anion Gap 15 BUN 16 Creatinine 0.6 L Est GFR ( Amer) > 60 Est GFR (Non-Af Amer) > 60 POC Glucose (mg/dL) 91 Random Glucose 72 L Calcium 7.7 L Total Bilirubin 4.3 H AST 37 ALT 9 L D Alkaline Phosphatase 82 Total Protein 6.8 Albumin 2.2 L Globulin 4.6 H Albumin/Globulin Ratio 0.5 L Assessment & Plan - Assessment and Plan (Free Text) Assessment: Palliative consult Code satus Full Code, no Advance Directive on cart, PPS 10% I reviewed medical records, all diagnostic studies, examined patient in the bed. Patient is intubated, not sedated on MV support. There is corneal reflex. Patient reacts to tactile stimuli. Unable to fallow verbal commends. Skin is molted and warm to touch. Fever of 102.7. There is generalized edema throughout the body. Pressure sore to left foot. Breath sounds diminished. CT can significant for pleural effusion. Abdomen soft , diminished bowel sounds. IV fluids on for hydration. Breathing supported b MV. Patient tolerated CPAP for 12 hr last night and is back to full MV support due to fever. BP 126/71, HR 108 WBC 11.4, was 9.2 on admission I called the office of Public Guardian and talked to Luisa. I discussed patient' s clinical presentation and lack of Advance Directive. She stated understanding and directed me to appropriate Channels . Impression * This is chronically ill man in acute respiratory support * Sepsis * Pneumonia * Pressure sore infection * Fever * Lack of family support * Patient is unable to advocate for him self * Lack of Advance Directive Suggestion * Continue IV antibiotics * Maintain patient afebrile * Wound care * Continue weaning trials * Patient should be made DNR/DNI as his condition and extensive medical Hx warranty quite poor prognosis * The MD is needed to start process for Code status Change as per Legal Guardian I spoke to today Thank you for consulting Palliative care
--- NOTE | 2017-08-31 23:04 | CP.PCM.PN ---
Subjective - Date & Time of Evaluation Date of Evaluation: 08/31/17 Time of Evaluation: 18:00 - Subjective Subjective: PT SEEN AND EXAMINED REMAINS ON MECHANICAL VENTILATOR NON WEANABLE Objective - Vital Signs/Intake and Output Vital Signs (last 24 hours): Temp Pulse Resp BP Pulse Ox 98.4 F 105 H 27 H 130/58 L 93 L 08/31/17 20:00 08/31/17 21:01 08/31/17 21:01 08/31/17 21:01 08/31/17 21:01 Intake and Output: 08/31/17 09/01/17 18:59 06:59 Intake Total 780 120 Output Total 595 130 Balance 185 -10 - Medications Medications: Current Medications Acetaminophen (Tylenol 650 Mg Supp) 650 mg LA Q4 PRN PRN Reason: Fever >100.4 F Last Admin: 08/31/17 22:49 Dose: 650 mg Albuterol/Ipratropium (Duoneb 3 Mg/0.5 Mg (3 Ml) Ud) 3 ml INH RQ6 [facility] Last Admin: 08/31/17 19:37 Dose: 3 ml Bisacodyl (Dulcolax) 10 mg LA ONCE PRN PRN Reason: consipation Carbamazepine (Tegretol) 100 mg PEG Q8 [facility] Last Admin: 08/31/17 21:57 Dose: 100 mg Enoxaparin Sodium (Lovenox) 40 mg SC DAILY [facility] Last Admin: 08/31/17 10:17 Dose: 40 mg Piperacillin Sod/Tazobactam (Sod 3.375 gm/ Sodium Chloride) 100 mls @ 100 mls/ hr IVPB Q6H [facility] PRN Reason: Protocol Last Admin: 08/31/17 16:49 Dose: 100 mls/hr Metronidazole (Flagyl) 500 mg in 100 mls @ 100 mls/hr IVPB Q8 [facility] PRN Reason: Protocol Last Admin: 08/31/17 21:55 Dose: 100 mls/hr Azithromycin 500 mg/ Sodium (Chloride) 250 mls @ 250 mls/hr IVPB DAILY [facility] PRN Reason: Protocol Last Admin: 08/31/17 13:45 Dose: 250 mls/hr Pantoprazole Sodium (Protonix Susp) 40 mg PO DAILY [facility] Last Admin: 08/31/17 10:17 Dose: 40 mg Rosuvastatin Calcium (Crestor) 5 mg PO HS [facility] Last Admin: 08/31/17 21:57 Dose: 5 mg Valproate Sodium (Depakene Oral Soln) 250 mg PEG QID [facility] Last Admin: 08/31/17 21:57 Dose: 250 mg - Labs Labs: 08/31/17 06:35 08/31/17 07:25 PT 16.5 SECONDS (9.7-12.2) H 08/31/17 06:36 INR 1.5 08/31/17 06:36 APTT 33 SECONDS (21-34) 08/31/17 06:36 - Constitutional Appears: No Acute Distress, Chronically Ill - Head Exam Head Exam: ATRAUMATIC, NORMAL INSPECTION, NORMOCEPHALIC - Eye Exam Eye Exam: EOMI, Normal appearance, PERRL Pupil Exam: NORMAL ACCOMODATION, PERRL - ENT Exam ENT Exam: Mucous Membranes Moist, Normal Exam - Neck Exam Neck Exam: Full ROM, Normal Inspection. absent: Lymphadenopathy - Respiratory Exam Respiratory Exam: Decreased Breath Sounds, Rales - Cardiovascular Exam Cardiovascular Exam: Tachycardia, +S1, +S2 Assessment and Plan (1) Sepsis Status: Acute (2) Fever Status: Acute (3) Seizure disorder Status: Acute (4) COPD (chronic obstructive pulmonary disease) Status: Chronic (5) PVD (peripheral vascular disease) Status: Chronic (6) Respiratory failure Status: Acute
[2017-09-01] MEDS: Albuterol-Ipratrop 3 mg / 0.5 (3 ml) UD INH SCH ×4 (01:02→19:43)
[2017-09-01] MEDS: Piperacillin/Tazobact 3.375 GM in Sodium Chloride 100 ML IVPB SCH ×2 (05:00→11:13)
[2017-09-01] MEDS: metroNIDAZOLE IV 500 mg/100 ml 500 MG/100 ML BAG IVPB SCH ×3 (05:26→21:33)
[2017-09-01] MEDS: carBAMazepine Chew Tab 100 MG Chew Tab PEG SCH ×3 (05:27→21:36)
[2017-09-01 05:52] LABS: ABG ALLEN TEST POS; ARTERIAL BLOOD GAS HCO3 21.5 mmol/L (21-28); ARTERIAL BLOOD GAS HEMOGLOBIN 8.2 g/dL (11.7-17.4); ARTERIAL BLOOD GAS O2 SAT 98.7 % (95-98); ARTERIAL BLOOD GAS PCO2 31 mm/Hg (35-45); ARTERIAL BLOOD GAS PH 7.41 (7.35-7.45); ARTERIAL BLOOD GAS PO2 76 mm/Hg (80-100); ARTERIAL BLOOD GAS TCO2 20.6 mmol/L (22-28)
[2017-09-01 06:34] LABS: BASO # 0.1 K/uL (0.0-0.2); BASO % 0.4 % (0.0-2.0); EOS % 0.1 % (0.0-4.0); HEMOGLOBIN 8.1 g/dL (12.0-18.0); LYMPH # 1.5 K/uL (1.0-4.3); MEAN CELL VOLUME 84.7 fL (80.0-94.0); MEAN CORPUSCULAR HEMOGLOBIN 27.6 pg (27.0-31.0); MEAN CORPUSCULAR HGB CONC 32.6 g/dL (33.0-37.0); MEAN PLATELET VOLUME 7.9 fL (7.2-11.7); MONO # 2.8 K/uL (0.0-0.8); NEUT # 10.5 K/uL (1.8-7.0); NEUT % 70.5 % (50.0-75.0); NRBC % 0.1 % (0.0-2.0); RBC 2.92 Mil/uL (4.40-5.90); RED CELL DISTRIBUTION WIDTH 17.7 % (11.5-14.5)
[2017-09-01 06:55] LABS: ALB/GLOB RATIO 0.5 (1.0-2.1); ALBUMIN 1.9 g/dL (3.5-5.0); ALT/SGPT 9 U/L (21-72); AST/SGOT 26 U/L (17-59); BLOOD UREA NITROGEN 15 mg/dL (9-20); CALCIUM 7.4 mg/dl (8.6-10.4); GFR AFRICAN-AMERICAN > 60; GFR NON-AFRICAN AMERICAN > 60
--- NOTE | 2017-09-01 08:59 | RAD ---
HISTORY: pt. intubated COMPARISON: 08/31/2017 FINDINGS: LUNGS: Apparent opacity at left base likely artifactual due to oblique positioning and right-sided volume loss. There is volume loss in the right leticia thorax. . PLEURA: Small right pleural effusion versus pleural thickening. Right apical pleural thickening or pleural fluid capping. This is unchanged. No pneumothorax. No left pleural effusion. CARDIOVASCULAR: Normal heart size. Shift of heart and mediastinum towards the right. Endotracheal tube unchanged in position. OSSEOUS STRUCTURES: Multiple right rib deformities, postsurgical. Deformity of right humeral neck, likely posttraumatic. VISUALIZED UPPER ABDOMEN: Normal. OTHER FINDINGS: None. IMPRESSION: No interval change. Postoperative changes right leticia thorax with volume loss and right apical pleural thickening/fluid capping. ET tube unchanged.
[2017-09-01] MEDS: Valproic Acid 250 mg/5 ml UD Cup PEG SCH ×4 (09:30→21:33)
[2017-09-01] MEDS: Enoxaparin 40 mg Syringe SC SCH (09:31)
[2017-09-01] MEDS: Pantoprazole 40 mg Susp UD PO SCH (09:31)
[2017-09-01] MEDS: Azithromycin 500 MG in Sodium Chloride 0.9% 250 ML IVPB SCH (09:33)
--- NOTE | 2017-09-01 10:37 | CP.CCUPN ---
"<Niraj Negrete - Last Filed: 09/01/17 10:31> CCU Subjective - Physician Review Subjective (Free Text): Patient seen and examined at bedside. Currently on Mechanical Ventilation PRVC mode. Patient is responsive to verbal and tactile stimuli. Generally more responsive overall. CCU Objective - Vital Signs / Intake & Output Vital Signs (Last 4 hours): Vital Signs Pulse Resp BP Pulse Ox 09/01/17 08:01 109 H 25 H 116/56 L 100 09/01/17 07:01 109 H 24 106/49 L 93 L 09/01/17 07:00 109 H 24 94 L Intake and Output (Last 8hrs): Intake & Output 08/31/17 09/01/17 09/01/17 22:59 06:59 14:59 Intake Total 610 620 80 Output Total 365 375 90 Balance 245 245 -10 Weight 140 lb 0.9 oz Intake: Intake, IV Amount 200 300 Left Medial Port Internal 200 300 Jugular Tube Feeding 320 320 80 Other 90 Output: Urine 365 375 90 Urine, Voided 365 375 90 Other: # Bowel Movements 1 - Physical Exam Head: Positive for: Atraumatic, Normocephalic Pupils: Positive for: PERRL Mouth: Negative for: Moist Mucous Membranes Respiratory/Chest: Positive for: Rales (B/L), Other (Intubated) Cardiovascular: Positive for: Normal S1, S2. Negative for: Tachycardic Abdomen: Positive for: Normal Bowel Sounds. Negative for: Distention Neurological: Negative for: GCS=15 (10T) Psychiatric: Negative for: Alert - Medications Active Medications: Active Medications Generic Name Dose Route Start Last Admin Trade Name Freq PRN Reason Stop Dose Admin Acetaminophen 650 mg 08/25/17 17:20 08/31/17 22:49 Tylenol 650 Mg Supp PA 650 mg Q4 PRN Administration Fever >100.4 F Albuterol/Ipratropium 3 ml 08/28/17 08:00 09/01/17 08:03 Duoneb 3 Mg/0.5 Mg (3 Ml) Ud INH 3 ml RQ6 AMY Administration Bisacodyl 10 mg 08/29/17 08:30 Dulcolax PA ONCE PRN consipation Carbamazepine 100 mg 08/24/17 22:00 09/01/17 05:27 Tegretol PEG 100 mg Q8 AMY Administration Enoxaparin Sodium 40 mg 08/24/17 18:00 09/01/17 09:31 Lovenox SC 40 mg DAILY AMY Administration Piperacillin Sod/Tazobactam 100 mls @ 100 mls/hr 08/27/17 11:00 09/01/17 05: 00 Sod 3.375 gm/ Sodium Chloride IVPB 100 mls/hr Q6H AMY Administration Protocol Metronidazole 500 mg in 100 mls @ 100 mls/hr 08/31/17 14:00 09/01/17 05:26 Flagyl IVPB 100 mls/hr Q8 AMY Administration Protocol Azithromycin 500 mg/ Sodium 250 mls @ 250 mls/hr 08/31/17 14:30 09/01/17 09: 33 Chloride IVPB 250 mls/hr DAILY AMY Administration Protocol Albumin Human 50 mls @ 1 mls/min 09/01/17 09:15 09/01/17 09:29 Albumin Human 25% (12.5 Gm/50 Ml) IVPB 09/02/17 02:04 1 mls/min Q8H AMY Administration Pantoprazole Sodium 40 mg 08/29/17 10:00 09/01/17 09:31 Protonix Susp PO 40 mg DAILY AMY Administration Rosuvastatin Calcium 5 mg 08/24/17 22:00 08/31/17 21:57 Crestor PO 5 mg HS AMY Administration Valproate Sodium 250 mg 08/24/17 18:00 09/01/17 09:30 Depakene Oral Soln PEG 250 mg QID AMY Administration - Patient Studies Lab Studies: Microbiology Studies 08/31/17 07:29 Urine Culture - Final Urine,Catheterized No Growth (<1,000 CFU/ML) 08/31/17 11:00 Gram Stain - Final Sputum Lab Studies 09/01/17 09/01/17 09/01/17 Range/Units 06:32 06:32 06:23 WBC 15.0 H (4.8-10.8) K/uL RBC 2.92 L (4.40-5.90) Mil/uL Hgb 8.1 L (12.0-18.0) g/dL Hct 24.7 L (35.0-51.0) % MCV 84.7 (80.0-94.0) fL MCH 27.6 (27.0-31.0) pg MCHC 32.6 L (33.0-37.0) g/dL RDW 17.7 H (11.5-14.5) % Plt Count 262 (130-400) K/uL MPV 7.9 (7.2-11.7) fL Neut % (Auto) 70.5 (50.0-75.0) % Lymph % (Auto) 10.0 L (20.0-40.0) % [place] % (Auto) 19.0 H (0.0-10.0) % Eos % (Auto) 0.1 (0.0-4.0) % Baso % (Auto) 0.4 (0.0-2.0) % Neut # (Auto) 10.5 H (1.8-7.0) K/uL Lymph # (Auto) 1.5 (1.0-4.3) K/uL [place] # (Auto) 2.8 H (0.0-0.8) K/uL Eos # (Auto) 0.0 (0.0-0.7) K/uL Baso # (Auto) 0.1 (0.0-0.2) K/uL Puncture Site pCO2 (35-45) mm/Hg pO2 (80-100) mm/Hg HCO3 (21-28) mmol/L ABG pH (7.35-7.45) ABG Total CO2 (22-28) mmol/L ABG O2 Saturation (95-98) % ABG Base Excess (-2.0-3.0) mmol/L ABG Hemoglobin (11.7-17.4) g/dL ABG Carboxyhemoglobin (0.5-1.5) % POC ABG HHb (Measured) (0.0-5.0) % ABG Methemoglobin (0.0-3.0) % Collin Test A-a O2 Difference mm/Hg Respiratory Index Hgb O2 Saturation (95.0-98.0) % Vent Mode Mechanical Rate FiO2 % Tidal Volume PEEP Sodium 147 (132-148) mmol/L Potassium 3.5 L (3.6-5.2) mmol/L Chloride 117 H (98-107) mmol/L Carbon Dioxide 20 L (22-30) mmol/L Anion Gap 14 (10-20) BUN 15 (9-20) mg/dL Creatinine 0.7 L (0.8-1.5) mg/dL Est GFR ( Amer) > 60 Est GFR (Non-Af Amer) > 60 POC Glucose (mg/dL) 94 (65-110) mg/dL Random Glucose 78 (75-110) mg/dL Calcium 7.4 L (8.6-10.4) mg/dl Phosphorus 3.4 (2.5-4.5) mg/dL Magnesium 2.0 (1.6-2.3) mg/dL Total Bilirubin 2.9 H (0.2-1.3) mg/dL AST 26 (17-59) U/L ALT 9 L (21-72) U/L Alkaline Phosphatase 65 (38-126) U/L Total Protein 5.8 L (6.3-8.3) g/dL Albumin 1.9 L (3.5-5.0) g/dL Globulin 3.9 (2.2-3.9) gm/dL Albumin/Globulin Ratio 0.5 L (1.0-2.1) 09/01/17 08/31/17 08/31/17 Range/Units 05:40 23:18 17:42 WBC (4.8-10.8) K/uL RBC (4.40-5.90) Mil/uL Hgb (12.0-18.0) g/dL Hct (35.0-51.0) % MCV (80.0-94.0) fL MCH (27.0-31.0) pg MCHC (33.0-37.0) g/dL RDW (11.5-14.5) % Plt Count (130-400) K/uL MPV (7.2-11.7) fL Neut % (Auto) (50.0-75.0) % Lymph % (Auto) (20.0-40.0) % [place] % (Auto) (0.0-10.0) % Eos % (Auto) (0.0-4.0) % Baso % (Auto) (0.0-2.0) % Neut # (Auto) (1.8-7.0) K/uL Lymph # (Auto) (1.0-4.3) K/uL [place] # (Auto) (0.0-0.8) K/uL Eos # (Auto) (0.0-0.7) K/uL Baso # (Auto) (0.0-0.2) K/uL Puncture Site R rad pCO2 31 L (35-45) mm/Hg pO2 76 L (80-100) mm/Hg HCO3 21.5 (21-28) mmol/L ABG pH 7.41 (7.35-7.45) ABG Total CO2 20.6 L (22-28) mmol/L ABG O2 Saturation 98.7 H (95-98) % ABG Base Excess -4.4 L (-2.0-3.0) mmol/L ABG Hemoglobin 8.2 L (11.7-17.4) g/dL ABG Carboxyhemoglobin 2.5 H (0.5-1.5) % POC ABG HHb (Measured) 1.3 (0.0-5.0) % ABG Methemoglobin 1.0 (0.0-3.0) % Collin Test Pos A-a O2 Difference 135.0 mm/Hg Respiratory Index 1.8 Hgb O2 Saturation 95.1 (95.0-98.0) % Vent Mode Prvc Mechanical Rate 14 FiO2 35.0 % Tidal Volume 450 PEEP 5 Sodium (132-148) mmol/L Potassium (3.6-5.2) mmol/L Chloride (98-107) mmol/L Carbon Dioxide (22-30) mmol/L Anion Gap (10-20) BUN (9-20) mg/dL Creatinine (0.8-1.5) mg/dL Est GFR ( Amer) Est GFR (Non-Af Amer) POC Glucose (mg/dL) 93 94 (65-110) mg/dL Random Glucose (75-110) mg/dL Calcium (8.6-10.4) mg/dl Phosphorus (2.5-4.5) mg/dL Magnesium (1.6-2.3) mg/dL Total Bilirubin (0.2-1.3) mg/dL AST (17-59) U/L ALT (21-72) U/L Alkaline Phosphatase (38-126) U/L Total Protein (6.3-8.3) g/dL Albumin (3.5-5.0) g/dL Globulin (2.2-3.9) gm/dL Albumin/Globulin Ratio (1.0-2.1) // Range/Units 11:29 WBC (4.8-10.8) K/uL RBC (4.40-5.90) Mil/uL Hgb (12.0-18.0) g/dL Hct (35.0-51.0) % MCV (80.0-94.0) fL MCH (27.0-31.0) pg MCHC (33.0-37.0) g/dL RDW (11.5-14.5) % Plt Count (130-400) K/uL MPV (7.2-11.7) fL Neut % (Auto) (50.0-75.0) % Lymph % (Auto) (20.0-40.0) % [place] % (Auto) (0.0-10.0) % Eos % (Auto) (0.0-4.0) % Baso % (Auto) (0.0-2.0) % Neut # (Auto) (1.8-7.0) K/uL Lymph # (Auto) (1.0-4.3) K/uL [place] # (Auto) (0.0-0.8) K/uL Eos # (Auto) (0.0-0.7) K/uL Baso # (Auto) (0.0-0.2) K/uL Puncture Site pCO2 (35-45) mm/Hg pO2 (80-100) mm/Hg HCO3 (21-28) mmol/L ABG pH (7.35-7.45) ABG Total CO2 (22-28) mmol/L ABG O2 Saturation (95-98) % ABG Base Excess (-2.0-3.0) mmol/L ABG Hemoglobin (11.7-17.4) g/dL ABG Carboxyhemoglobin (0.5-1.5) % POC ABG HHb (Measured) (0.0-5.0) % ABG Methemoglobin (0.0-3.0) % Collin Test A-a O2 Difference mm/Hg Respiratory Index Hgb O2 Saturation (95.0-98.0) % Vent Mode Mechanical Rate FiO2 % Tidal Volume PEEP Sodium (132-148) mmol/L Potassium (3.6-5.2) mmol/L Chloride (98-107) mmol/L Carbon Dioxide (22-30) mmol/L Anion Gap (10-20) BUN (9-20) mg/dL Creatinine (0.8-1.5) mg/dL Est GFR ( Amer) Est GFR (Non-Af Amer) POC Glucose (mg/dL) 91 (65-110) mg/dL Random Glucose (75-110) mg/dL Calcium (8.6-10.4) mg/dl Phosphorus (2.5-4.5) mg/dL Magnesium (1.6-2.3) mg/dL Total Bilirubin (0.2-1.3) mg/dL AST (17-59) U/L ALT (21-72) U/L Alkaline Phosphatase (38-126) U/L Total Protein (6.3-8.3) g/dL Albumin (3.5-5.0) g/dL Globulin (2.2-3.9) gm/dL Albumin/Globulin Ratio (1.0-2.1) Laboratory Results - last 24 hr 08/31/17 08/31/17 08/31/17 11:29 17:42 23:18 WBC RBC Hgb Hct MCV MCH MCHC RDW Plt Count MPV Neut % (Auto) Lymph % (Auto) [place] % (Auto) Eos % (Auto) Baso % (Auto) Neut # (Auto) Lymph # (Auto) [place] # (Auto) Eos # (Auto) Baso # (Auto) Puncture Site pCO2 pO2 HCO3 ABG pH ABG Total CO2 ABG O2 Saturation ABG Base Excess ABG Hemoglobin ABG Carboxyhemoglobin POC ABG HHb (Measured) ABG Methemoglobin Collin Test A-a O2 Difference Respiratory Index Hgb O2 Saturation Vent Mode Mechanical Rate FiO2 Tidal Volume PEEP Sodium Potassium Chloride Carbon Dioxide Anion Gap BUN Creatinine Est GFR ( Amer) Est GFR (Non-Af Amer) POC Glucose (mg/dL) 91 94 93 Random Glucose Calcium Phosphorus Magnesium Total Bilirubin AST ALT Alkaline Phosphatase Total Protein Albumin Globulin Albumin/Globulin Ratio 09/01/17 09/01/17 09/01/17 05:40 06:23 06:32 WBC 15.0 H RBC 2.92 L Hgb 8.1 L Hct 24.7 L MCV 84.7 MCH 27.6 MCHC 32.6 L RDW 17.7 H Plt Count 262 MPV 7.9 Neut % (Auto) 70.5 Lymph % (Auto) 10.0 L [place] % (Auto) 19.0 H Eos % (Auto) 0.1 Baso % (Auto) 0.4 Neut # (Auto) 10.5 H Lymph # (Auto) 1.5 [place] # (Auto) 2.8 H Eos # (Auto) 0.0 Baso # (Auto) 0.1 Puncture Site R rad pCO2 31 L pO2 76 L HCO3 21.5 ABG pH 7.41 ABG Total CO2 20.6 L ABG O2 Saturation 98.7 H ABG Base Excess -4.4 L ABG Hemoglobin 8.2 L ABG Carboxyhemoglobin 2.5 H POC ABG HHb (Measured) 1.3 ABG Methemoglobin 1.0 Collin Test Pos A-a O2 Difference 135.0 Respiratory Index 1.8 Hgb O2 Saturation 95.1 Vent Mode Prvc Mechanical Rate 14 FiO2 35.0 Tidal Volume 450 PEEP 5 Sodium Potassium Chloride Carbon Dioxide Anion Gap BUN Creatinine Est GFR ( Amer) Est GFR (Non-Af Amer) POC Glucose (mg/dL) 94 Random Glucose Calcium Phosphorus Magnesium Total Bilirubin AST ALT Alkaline Phosphatase Total Protein Albumin Globulin Albumin/Globulin Ratio 09/01/17 06:32 WBC RBC Hgb Hct MCV MCH MCHC RDW Plt Count MPV Neut % (Auto) Lymph % (Auto) [place] % (Auto) Eos % (Auto) Baso % (Auto) Neut # (Auto) Lymph # (Auto) [place] # (Auto) Eos # (Auto) Baso # (Auto) Puncture Site pCO2 pO2 HCO3 ABG pH ABG Total CO2 ABG O2 Saturation ABG Base Excess ABG Hemoglobin ABG Carboxyhemoglobin POC ABG HHb (Measured) ABG Methemoglobin Collin Test A-a O2 Difference Respiratory Index Hgb O2 Saturation Vent Mode Mechanical Rate FiO2 Tidal Volume PEEP Sodium 147 Potassium 3.5 L Chloride 117 H Carbon Dioxide 20 L Anion Gap 14 BUN 15 Creatinine 0.7 L Est GFR ( Amer) > 60 Est GFR (Non-Af Amer) > 60 POC Glucose (mg/dL) Random Glucose 78 Calcium 7.4 L Phosphorus 3.4 Magnesium 2.0 Total Bilirubin 2.9 H AST 26 ALT 9 L Alkaline Phosphatase 65 Total Protein 5.8 L Albumin 1.9 L Globulin 3.9 Albumin/Globulin Ratio 0.5 L Fingerstick Blood Sugar Results: 94 Review of Systems - Review of Systems Systems not reviewed;Unavailable: Intubated Assessment/Plan - Assessment and Plan (Free Text) Assessment: 77 year old male with PMHx of Arthritis, Asthma, COPD, Severe Dementia, HTN, Pneumonia, Seizures, TIA, and Right AKA presents from [facility] due to fever of an unknown duration. Code Sepsis called in ED. Patient admitted to ICU for evaluation and treatment of SEPSIS. Patient began desating requiring emergent intubation. 08/27: Mycoplasma PNA IgM - POSITIVE Plan: Neuro: GCS: 10T Sedation: None A: Severe Dementia, Hx of Seizure Home Carbamazepine 100mg Q8 | Home Valproic Acid 250mg PEG QID Cardio: A: HTN, Hx of TIA, Hypotension,HLD Crestor 5mg PO HS Albumin Q8 x 3 doses Ordered. Pulm: A: Hypoxic Res. Failure, Asthma, COPD, Mycoplasma Pneumonia CXR (Admission): Stable postsurgical changes in the right lung with low lung volume and shift of mediastinal to the right. No acute findings. ABG (Adm): 7.4//326/21.6 ABG ( 08/27): 7.41//115/19.8 ABG (08/31): 7.42///21.6 ABG (09/01): 7.41/31/76/21.5 DuoNebs Schedule Wean Fi02 as tolerated Daily CPAP trials. Tolerated CPAP for 12.5 hours yesterday then hyperventilated. CXR (09/01): Impression read No interval change. Postoperative changes right leticia thorax with volume loss and right apical pleural thickening/fluid capping. ET tube unchanged. Per my read, there increased density in the right upper lobe infiltrate. Plan for Bronchoscopy Endo A: Hypoglycemia (Stable) GI: A: Enterocolitis CT chest Abd/Pelvis (08/27): Enterocolits; ascities;mild bladder wall thickening with air in the bladder, iatrogenic versus infectious. Started on Flagyl Today. Renal: A: Hypocalcemia (stable), Hypokalemia (Resolved) Replace electrolytes PRN Heme/Onc: A: Normocytic Anemia HgB Stable ID A: Code Sepsis, Leukocytosis (Worsening) Febrile Overnight Blood/Urine/Sputum Cultures Ordered today ( 08/31) - PENDING Blood Cultures - NEGATIVE for 3 days. 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 Azithromax restarted today, Start Flagyl for Eneterocolitis. ID on Consult, Recs Appreciated. Integumentary A: Left Lower ext wounds Wound Care. Proph Protonix Lovenox Diet: Tube Feeding - Jevity 1.5 Lines: Right IJ Central Line Patient discussed with ICU Attending Niraj Negrete, PGY-1 <Giovanni Washington - Last Filed: 09/01/17 15:45> CCU Objective - Vital Signs / Intake & Output Vital Signs (Last 4 hours): Vital Signs Temp Pulse Resp BP Pulse Ox 09/01/17 13:00 99 H 23 109/57 L 98 09/01/17 12:01 102 H 22 109/57 L 97 09/01/17 12:00 99.8 F H 98 Intake and Output (Last 8hrs): Intake & Output 09/01/17 09/01/17 09/01/17 06:59 14:59 22:59 Intake Total 620 780 Output Total 375 305 Balance 245 475 Weight 140 lb 0.9 oz Intake: Intake, IV Amount 300 500 Left Medial Port Internal 300 500 Jugular Tube Feeding 320 280 Output: Urine 375 305 Urine, Voided 375 305 Other: # Bowel Movements 1 - Medications Active Medications: Active Medications Generic Name Dose Route Start Last Admin Trade Name Freq PRN Reason Stop Dose Admin Acetaminophen 650 mg 08/25/17 17:20 08/31/17 22:49 Tylenol 650 Mg Supp PA 650 mg Q4 PRN Administration Fever >100.4 F Albuterol/Ipratropium 3 ml 08/28/17 08:00 09/01/17 13:54 Duoneb 3 Mg/0.5 Mg (3 Ml) Ud INH 3 ml RQ6 AMY Administration Bisacodyl 10 mg 08/29/17 08:30 Dulcolax PA ONCE PRN consipation Carbamazepine 100 mg 08/24/17 22:00 09/01/17 13:34 Tegretol PEG 100 mg Q8 AMY Administration Enoxaparin Sodium 40 mg 08/24/17 18:00 09/01/17 09:31 Lovenox SC 40 mg DAILY AMY Administration Metronidazole 500 mg in 100 mls @ 100 mls/hr 08/31/17 14:00 09/01/17 13:35 Flagyl IVPB 100 mls/hr Q8 AMY Administration Protocol Albumin Human 50 mls @ 1 mls/min 09/01/17 09:15 09/01/17 09:29 Albumin Human 25% (12.5 Gm/50 Ml) IVPB 09/02/17 02:04 1 mls/min Q8H AMY Administration Micafungin Sodium 100 mg/ 100 mls @ 100 mls/hr 09/01/17 16:00 Sodium Chloride IV Q24H AMY Protocol Moxifloxacin HCl 400 mg 09/01/17 15:00 Avelox PO Q24H AMY Pantoprazole Sodium 40 mg 08/29/17 10:00 09/01/17 09:31 Protonix Susp PO 40 mg DAILY AMY Administration Rosuvastatin Calcium 5 mg 08/24/17 22:00 08/31/17 21:57 Crestor PO 5 mg HS AMY Administration Valproate Sodium 250 mg 08/24/17 18:00 09/01/17 13:35 Depakene Oral Soln PEG 250 mg QID AMY Administration - Patient Studies Lab Studies: Microbiology Studies 08/31/17 10:00 Blood Culture - Preliminary Blood NO GROWTH AFTER 24 HOURS 08/31/17 10:30 Blood Culture - Preliminary Blood NO GROWTH AFTER 24 HOURS 08/31/17 07:29 Urine Culture - Final Urine,Catheterized No Growth (<1,000 CFU/ML) 08/31/17 11:00 Gram Stain - Final Sputum Lab Studies 09/01/17 09/01/17 09/01/17 Range/Units 11:32 08:41 06:32 WBC (4.8-10.8) K/uL RBC (4.40-5.90) Mil/uL Hgb (12.0-18.0) g/dL Hct (35.0-51.0) % MCV (80.0-94.0) fL MCH (27.0-31.0) pg MCHC (33.0-37.0) g/dL RDW (11.5-14.5) % Plt Count (130-400) K/uL MPV (7.2-11.7) fL Neut % (Auto) (50.0-75.0) % Lymph % (Auto) (20.0-40.0) % [place] % (Auto) (0.0-10.0) % Eos % (Auto) (0.0-4.0) % Baso % (Auto) (0.0-2.0) % Neut # (Auto) (1.8-7.0) K/uL Lymph # (Auto) (1.0-4.3) K/uL [place] # (Auto) (0.0-0.8) K/uL Eos # (Auto) (0.0-0.7) K/uL Baso # (Auto) (0.0-0.2) K/uL Puncture Site pCO2 (35-45) mm/Hg pO2 (80-100) mm/Hg HCO3 (21-28) mmol/L ABG pH (7.35-7.45) ABG Total CO2 (22-28) mmol/L ABG O2 Saturation (95-98) % ABG Base Excess (-2.0-3.0) mmol/L ABG Hemoglobin (11.7-17.4) g/dL ABG Carboxyhemoglobin (0.5-1.5) % POC ABG HHb (Measured) (0.0-5.0) % ABG Methemoglobin (0.0-3.0) % Collin Test A-a O2 Difference mm/Hg Respiratory Index Hgb O2 Saturation (95.0-98.0) % Vent Mode Mechanical Rate FiO2 % Tidal Volume PEEP Sodium 147 (132-148) mmol/L Potassium 3.5 L (3.6-5.2) mmol/L Chloride 117 H (98-107) mmol/L Carbon Dioxide 20 L (22-30) mmol/L Anion Gap 14 (10-20) BUN 15 (9-20) mg/dL Creatinine 0.7 L (0.8-1.5) mg/dL Est GFR ( Amer) > 60 Est GFR (Non-Af Amer) > 60 POC Glucose (mg/dL) 82 (65-110) mg/dL Random Glucose 78 (75-110) mg/dL Calcium 7.4 L (8.6-10.4) mg/dl Phosphorus 3.4 (2.5-4.5) mg/dL Magnesium 2.0 (1.6-2.3) mg/dL Total Bilirubin 2.9 H (0.2-1.3) mg/dL AST 26 (17-59) U/L ALT 9 L (21-72) U/L Alkaline Phosphatase 65 (38-126) U/L Total Protein 5.8 L (6.3-8.3) g/dL Albumin 1.9 L (3.5-5.0) g/dL Globulin 3.9 (2.2-3.9) gm/dL Albumin/Globulin Ratio 0.5 L (1.0-2.1) C. difficile Ag & Toxin Negative (NEGATIVE) 09/01/17 09/01/17 09/01/17 Range/Units 06:32 06:23 05:40 WBC 15.0 H (4.8-10.8) K/uL RBC 2.92 L (4.40-5.90) Mil/uL Hgb 8.1 L (12.0-18.0) g/dL Hct 24.7 L (35.0-51.0) % MCV 84.7 (80.0-94.0) fL MCH 27.6 (27.0-31.0) pg MCHC 32.6 L (33.0-37.0) g/dL RDW 17.7 H (11.5-14.5) % Plt Count 262 (130-400) K/uL MPV 7.9 (7.2-11.7) fL Neut % (Auto) 70.5 (50.0-75.0) % Lymph % (Auto) 10.0 L (20.0-40.0) % [place] % (Auto) 19.0 H (0.0-10.0) % Eos % (Auto) 0.1 (0.0-4.0) % Baso % (Auto) 0.4 (0.0-2.0) % Neut # (Auto) 10.5 H (1.8-7.0) K/uL Lymph # (Auto) 1.5 (1.0-4.3) K/uL [place] # (Auto) 2.8 H (0.0-0.8) K/uL Eos # (Auto) 0.0 (0.0-0.7) K/uL Baso # (Auto) 0.1 (0.0-0.2) K/uL Puncture Site R rad pCO2 31 L (35-45) mm/Hg pO2 76 L (80-100) mm/Hg HCO3 21.5 (21-28) mmol/L ABG pH 7.41 (7.35-7.45) ABG Total CO2 20.6 L (22-28) mmol/L ABG O2 Saturation 98.7 H (95-98) % ABG Base Excess -4.4 L (-2.0-3.0) mmol/L ABG Hemoglobin 8.2 L (11.7-17.4) g/dL ABG Carboxyhemoglobin 2.5 H (0.5-1.5) % POC ABG HHb (Measured) 1.3 (0.0-5.0) % ABG Methemoglobin 1.0 (0.0-3.0) % Collin Test Pos A-a O2 Difference 135.0 mm/Hg Respiratory Index 1.8 Hgb O2 Saturation 95.1 (95.0-98.0) % Vent Mode Prvc Mechanical Rate 14 FiO2 35.0 % Tidal Volume 450 PEEP 5 Sodium (132-148) mmol/L Potassium (3.6-5.2) mmol/L Chloride (98-107) mmol/L Carbon Dioxide (22-30) mmol/L Anion Gap (10-20) BUN (9-20) mg/dL Creatinine (0.8-1.5) mg/dL Est GFR ( Amer) Est GFR (Non-Af Amer) POC Glucose (mg/dL) 94 (65-110) mg/dL Random Glucose (75-110) mg/dL Calcium (8.6-10.4) mg/dl Phosphorus (2.5-4.5) mg/dL Magnesium (1.6-2.3) mg/dL Total Bilirubin (0.2-1.3) mg/dL AST (17-59) U/L ALT (21-72) U/L Alkaline Phosphatase (38-126) U/L Total Protein (6.3-8.3) g/dL Albumin (3.5-5.0) g/dL Globulin (2.2-3.9) gm/dL Albumin/Globulin Ratio (1.0-2.1) C. difficile Ag & Toxin (NEGATIVE) 08/31/17 08/31/17 Range/Units 23:18 17:42 WBC (4.8-10.8) K/uL RBC (4.40-5.90) Mil/uL Hgb (12.0-18.0) g/dL Hct (35.0-51.0) % MCV (80.0-94.0) fL MCH (27.0-31.0) pg MCHC (33.0-37.0) g/dL RDW (11.5-14.5) % Plt Count (130-400) K/uL MPV (7.2-11.7) fL Neut % (Auto) (50.0-75.0) % Lymph % (Auto) (20.0-40.0) % [place] % (Auto) (0.0-10.0) % Eos % (Auto) (0.0-4.0) % Baso % (Auto) (0.0-2.0) % Neut # (Auto) (1.8-7.0) K/uL Lymph # (Auto) (1.0-4.3) K/uL [place] # (Auto) (0.0-0.8) K/uL Eos # (Auto) (0.0-0.7) K/uL Baso # (Auto) (0.0-0.2) K/uL Puncture Site pCO2 (35-45) mm/Hg pO2 (80-100) mm/Hg HCO3 (21-28) mmol/L ABG pH (7.35-7.45) ABG Total CO2 (22-28) mmol/L ABG O2 Saturation (95-98) % ABG Base Excess (-2.0-3.0) mmol/L ABG Hemoglobin (11.7-17.4) g/dL ABG Carboxyhemoglobin (0.5-1.5) % POC ABG HHb (Measured) (0.0-5.0) % ABG Methemoglobin (0.0-3.0) % Collin Test A-a O2 Difference mm/Hg Respiratory Index Hgb O2 Saturation (95.0-98.0) % Vent Mode Mechanical Rate FiO2 % Tidal Volume PEEP Sodium (132-148) mmol/L Potassium (3.6-5.2) mmol/L Chloride (98-107) mmol/L Carbon Dioxide (22-30) mmol/L Anion Gap (10-20) BUN (9-20) mg/dL Creatinine (0.8-1.5) mg/dL Est GFR ( Amer) Est GFR (Non-Af Amer) POC Glucose (mg/dL) 93 94 (65-110) mg/dL Random Glucose (75-110) mg/dL Calcium (8.6-10.4) mg/dl Phosphorus (2.5-4.5) mg/dL Magnesium (1.6-2.3) mg/dL Total Bilirubin (0.2-1.3) mg/dL AST (17-59) U/L ALT (21-72) U/L Alkaline Phosphatase (38-126) U/L Total Protein (6.3-8.3) g/dL Albumin (3.5-5.0) g/dL Globulin (2.2-3.9) gm/dL Albumin/Globulin Ratio (1.0-2.1) C. difficile Ag & Toxin (NEGATIVE) Laboratory Results - last 24 hr 08/31/17 08/31/17 09/01/17 17:42 23:18 05:40 WBC RBC Hgb Hct MCV MCH MCHC RDW Plt Count MPV Neut % (Auto) Lymph % (Auto) [place] % (Auto) Eos % (Auto) Baso % (Auto) Neut # (Auto) Lymph # (Auto) [place] # (Auto) Eos # (Auto) Baso # (Auto) Puncture Site R rad pCO2 31 L pO2 76 L HCO3 21.5 ABG pH 7.41 ABG Total CO2 20.6 L ABG O2 Saturation 98.7 H ABG Base Excess -4.4 L ABG Hemoglobin 8.2 L ABG Carboxyhemoglobin 2.5 H POC ABG HHb (Measured) 1.3 ABG Methemoglobin 1.0 Collin Test Pos A-a O2 Difference 135.0 Respiratory Index 1.8 Hgb O2 Saturation 95.1 Vent Mode Prvc Mechanical Rate 14 FiO2 35.0 Tidal Volume 450 PEEP 5 Sodium Potassium Chloride Carbon Dioxide Anion Gap BUN Creatinine Est GFR ( Amer) Est GFR (Non-Af Amer) POC Glucose (mg/dL) 94 93 Random Glucose Calcium Phosphorus Magnesium Total Bilirubin AST ALT Alkaline Phosphatase Total Protein Albumin Globulin Albumin/Globulin Ratio C. difficile Ag & Toxin 09/01/17 09/01/17 09/01/17 06:23 06:32 06:32 WBC 15.0 H RBC 2.92 L Hgb 8.1 L Hct 24.7 L MCV 84.7 MCH 27.6 MCHC 32.6 L RDW 17.7 H Plt Count 262 MPV 7.9 Neut % (Auto) 70.5 Lymph % (Auto) 10.0 L [place] % (Auto) 19.0 H Eos % (Auto) 0.1 Baso % (Auto) 0.4 Neut # (Auto) 10.5 H Lymph # (Auto) 1.5 [place] # (Auto) 2.8 H Eos # (Auto) 0.0 Baso # (Auto) 0.1 Puncture Site pCO2 pO2 HCO3 ABG pH ABG Total CO2 ABG O2 Saturation ABG Base Excess ABG Hemoglobin ABG Carboxyhemoglobin POC ABG HHb (Measured) ABG Methemoglobin Collin Test A-a O2 Difference Respiratory Index Hgb O2 Saturation Vent Mode Mechanical Rate FiO2 Tidal Volume PEEP Sodium 147 Potassium 3.5 L Chloride 117 H Carbon Dioxide 20 L Anion Gap 14 BUN 15 Creatinine 0.7 L Est GFR ( Amer) > 60 Est GFR (Non-Af Amer) > 60 POC Glucose (mg/dL) 94 Random Glucose 78 Calcium 7.4 L Phosphorus 3.4 Magnesium 2.0 Total Bilirubin 2.9 H AST 26 ALT 9 L Alkaline Phosphatase 65 Total Protein 5.8 L Albumin 1.9 L Globulin 3.9 Albumin/Globulin Ratio 0.5 L C. difficile Ag & Toxin 09/01/17 09/01/17 08:41 11:32 WBC RBC Hgb Hct MCV MCH MCHC RDW Plt Count MPV Neut % (Auto) Lymph % (Auto) [place] % (Auto) Eos % (Auto) Baso % (Auto) Neut # (Auto) Lymph # (Auto) [place] # (Auto) Eos # (Auto) Baso # (Auto) Puncture Site pCO2 pO2 HCO3 ABG pH ABG Total CO2 ABG O2 Saturation ABG Base Excess ABG Hemoglobin ABG Carboxyhemoglobin POC ABG HHb (Measured) ABG Methemoglobin Collin Test A-a O2 Difference Respiratory Index Hgb O2 Saturation Vent Mode Mechanical Rate FiO2 Tidal Volume PEEP Sodium Potassium Chloride Carbon Dioxide Anion Gap BUN Creatinine Est GFR ( Amer) Est GFR (Non-Af Amer) POC Glucose (mg/dL) 82 Random Glucose Calcium Phosphorus Magnesium Total Bilirubin AST ALT Alkaline Phosphatase Total Protein Albumin Globulin Albumin/Globulin Ratio C. difficile Ag & Toxin Negative Assessment/Plan (1) Respiratory failure Current Visit: Yes Status: Acute (2) Anemia Current Visit: Yes Status: Acute (3) Pneumonia Current Visit: No Status: Acute Attending/Attestation - Attestation I have personally seen and examined this patient.: Yes I have fully participated in the care of the patient.: Yes I have reviewed all pertinent clinical information: Yes Notes (Text): 09/01/17 15:44 patient seen and examined Not tolerating weaning worsening right upper lung infiltrate copious amount of secretions Tolerating feeding Afebrile Continue antibiotics Bronchoscopy and bronchoalveolar lavage"
[2017-09-01] MEDS ORDERED: Moxifloxacin IV 400mg/250ml NS 400 MG/250 ML BAG IVPB SCH (14:45)
--- NOTE | 2017-09-01 14:48 | CP.PCM.CON ---
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 cavitation ( Tumor , TB , Lung absess ? ) PMHx of Arthritis, Asthma, COPD, Severe Dementia, HTN, Pneumonia, Seizures, TIA , and Right AKA presents from detention due to fever of an unknown duration. ROS could not be done due to patient's mental status. History obtained from the chart. Review of Systems - Review of Systems All systems: reviewed and no additional remarkable complaints except Past Patient History - Infectious Disease Hx of Infectious Diseases: None - Past Medical History & Family History Past Medical History?: Yes - Past Social History Smoking Status: Unknown If Ever Smoked - CARDIAC Hx Hypertension: Yes - PULMONARY Hx Chronic Obstructive Pulmonary Disease (COPD): Yes - NEUROLOGICAL Hx Dementia: Yes Hx Seizures: Yes Hx Transient Ischemic Attacks (TIA): Yes - HEENT Hx HEENT Problems: Yes Other/Comment: RT EYELID DROOP - RENAL Hx Chronic Kidney Disease: No - ENDOCRINE/METABOLIC Hx Endocrine Disorders: No - HEMATOLOGICAL/ONCOLOGICAL Hx Anemia: Yes - INTEGUMENTARY Hx Dermatological Problems: Yes Other/Comment: multiple wounds - MUSCULOSKELETAL/RHEUMATOLOGICAL Hx Arthritis: Yes (BACK; KNEE R>L) - GASTROINTESTINAL Hx Gastrointestinal Disorders: No - GENITOURINARY/GYNECOLOGICAL Hx Genitourinary Disorders: Yes - PSYCHIATRIC Hx Substance Use: No - SURGICAL HISTORY Hx Surgeries: Yes Hx Amputation: Yes (right AKA) - ANESTHESIA Hx Anesthesia: Yes Hx Anesthesia Reactions: No Hx Malignant Hyperthermia: No Meds Allergies/Adverse Reactions: Allergies Allergy/AdvReac Type Severity Reaction Status Date / Time No Known Allergies Allergy Verified 07/25/17 01:13 - Medications Medications: Current Medications Acetaminophen (Tylenol 650 Mg Supp) 650 mg NE Q4 PRN PRN Reason: Fever >100.4 F Last Admin: 08/31/17 22:49 Dose: 650 mg Albuterol/Ipratropium (Duoneb 3 Mg/0.5 Mg (3 Ml) Ud) 3 ml INH RQ6 [facility] Last Admin: 09/01/17 13:54 Dose: 3 ml Bisacodyl (Dulcolax) 10 mg NE ONCE PRN PRN Reason: consipation Carbamazepine (Tegretol) 100 mg PEG Q8 [facility] Last Admin: 09/01/17 13:34 Dose: 100 mg Enoxaparin Sodium (Lovenox) 40 mg SC DAILY [facility] Last Admin: 09/01/17 09:31 Dose: 40 mg Metronidazole (Flagyl) 500 mg in 100 mls @ 100 mls/hr IVPB Q8 [facility] PRN Reason: Protocol Last Admin: 09/01/17 13:35 Dose: 100 mls/hr Albumin Human (Albumin Human 25% (12.5 Gm/50 Ml)) 50 mls @ 1 mls/min IVPB Q8H [facility] Stop: 09/02/17 02:04 Last Admin: 09/01/17 09:29 Dose: 1 mls/min Moxifloxacin HCl (Avelox Iv 400mg/250ml Ns) 400 mg in 250 mls @ 167 mls/hr IVPB Q24H [facility] PRN Reason: Protocol Pantoprazole Sodium (Protonix Susp) 40 mg PO DAILY [facility] Last Admin: 09/01/17 09:31 Dose: 40 mg Rosuvastatin Calcium (Crestor) 5 mg PO HS [facility] Last Admin: 08/31/17 21:57 Dose: 5 mg Valproate Sodium (Depakene Oral Soln) 250 mg PEG QID [facility] Last Admin: 09/01/17 13:35 Dose: 250 mg Physical Exam - Constitutional Appears: Cachectic, Chronically Ill - Head Exam Head Exam: NORMOCEPHALIC - Eye Exam Eye Exam: absent: Scleral icterus - ENT Exam ENT Exam: Mucous Membranes Dry - Neck Exam Neck exam: Negative for: Lymphadenopathy - Respiratory Exam Respiratory Exam: Decreased Breath Sounds, Prolonged Expiratory Phase, Rhonchi - Cardiovascular Exam Cardiovascular Exam: Tachycardia, REGULAR RHYTHM, +S1, +S2 - GI/Abdominal Exam GI & Abdominal Exam: Diminished Bowel Sounds, Distended, Soft. absent: Tenderness - Rectal Exam Rectal Exam: Deferred - Exam Exam: NORMAL INSPECTION - Extremities Exam Extremities exam: Negative for: pedal edema Additional comments: right aka contracted extrem - Back Exam Back exam: absent: CVA tenderness (L), CVA tenderness (R) - Neurological Exam Neurological exam: Altered - Psychiatric Exam Psychiatric exam: Depressed Results - Vital Signs Recent Vital Signs: Last Vital Signs Temp 99.8 F H 09/01/17 12:00 Pulse 99 H 09/01/17 13:00 Resp 23 09/01/17 13:00 BP 109/57 L 09/01/17 13:00 Pulse Ox 98 09/01/17 13:00 - Labs Result Diagrams: 09/01/17 06:32 09/01/17 06:32 Labs: Laboratory Results - last 24 hr 08/31/17 08/31/17 09/01/17 17:42 23:18 05:40 WBC RBC Hgb Hct MCV MCH MCHC RDW Plt Count MPV Neut % (Auto) Lymph % (Auto) [place] % (Auto) Eos % (Auto) Baso % (Auto) Neut # (Auto) Lymph # (Auto) [place] # (Auto) Eos # (Auto) Baso # (Auto) Puncture Site R rad pCO2 31 L pO2 76 L HCO3 21.5 ABG pH 7.41 ABG Total CO2 20.6 L ABG O2 Saturation 98.7 H ABG Base Excess -4.4 L ABG Hemoglobin 8.2 L ABG Carboxyhemoglobin 2.5 H POC ABG HHb (Measured) 1.3 ABG Methemoglobin 1.0 [place] Test Pos A-a O2 Difference 135.0 Respiratory Index 1.8 Hgb O2 Saturation 95.1 Vent Mode Prvc Mechanical Rate 14 FiO2 35.0 Tidal Volume 450 PEEP 5 Sodium Potassium Chloride Carbon Dioxide Anion Gap BUN Creatinine Est GFR ( Amer) Est GFR (Non-Af Amer) POC Glucose (mg/dL) 94 93 Random Glucose Calcium Phosphorus Magnesium Total Bilirubin AST ALT Alkaline Phosphatase Total Protein Albumin Globulin Albumin/Globulin Ratio C. difficile Ag & Toxin 09/01/17 09/01/17 09/01/17 06:23 06:32 06:32 WBC 15.0 H RBC 2.92 L Hgb 8.1 L Hct 24.7 L MCV 84.7 MCH 27.6 MCHC 32.6 L RDW 17.7 H Plt Count 262 MPV 7.9 Neut % (Auto) 70.5 Lymph % (Auto) 10.0 L [place] % (Auto) 19.0 H Eos % (Auto) 0.1 Baso % (Auto) 0.4 Neut # (Auto) 10.5 H Lymph # (Auto) 1.5 [place] # (Auto) 2.8 H Eos # (Auto) 0.0 Baso # (Auto) 0.1 Puncture Site pCO2 pO2 HCO3 ABG pH ABG Total CO2 ABG O2 Saturation ABG Base Excess ABG Hemoglobin ABG Carboxyhemoglobin POC ABG HHb (Measured) ABG Methemoglobin [place] Test A-a O2 Difference Respiratory Index Hgb O2 Saturation Vent Mode Mechanical Rate FiO2 Tidal Volume PEEP Sodium 147 Potassium 3.5 L Chloride 117 H Carbon Dioxide 20 L Anion Gap 14 BUN 15 Creatinine 0.7 L Est GFR ( Amer) > 60 Est GFR (Non-Af Amer) > 60 POC Glucose (mg/dL) 94 Random Glucose 78 Calcium 7.4 L Phosphorus 3.4 Magnesium 2.0 Total Bilirubin 2.9 H AST 26 ALT 9 L Alkaline Phosphatase 65 Total Protein 5.8 L Albumin 1.9 L Globulin 3.9 Albumin/Globulin Ratio 0.5 L C. difficile Ag & Toxin 09/01/17 09/01/17 08:41 11:32 WBC RBC Hgb Hct MCV MCH MCHC RDW Plt Count MPV Neut % (Auto) Lymph % (Auto) [place] % (Auto) Eos % (Auto) Baso % (Auto) Neut # (Auto) Lymph # (Auto) [place] # (Auto) Eos # (Auto) Baso # (Auto) Puncture Site pCO2 pO2 HCO3 ABG pH ABG Total CO2 ABG O2 Saturation ABG Base Excess ABG Hemoglobin ABG Carboxyhemoglobin POC ABG HHb (Measured) ABG Methemoglobin [place]lin Test A-a O2 Difference Respiratory Index Hgb O2 Saturation Vent Mode Mechanical Rate FiO2 Tidal Volume PEEP Sodium Potassium Chloride Carbon Dioxide Anion Gap BUN Creatinine Est GFR ( Amer) Est GFR (Non-Af Amer) POC Glucose (mg/dL) 82 Random Glucose Calcium Phosphorus Magnesium Total Bilirubin AST ALT Alkaline Phosphatase Total Protein Albumin Globulin Albumin/Globulin Ratio C. difficile Ag & Toxin Negative Assessment & Plan (1) Respiratory failure Status: Acute (2) Sepsis Status: Acute - Assessment and Plan (Free Text) Assessment: PMHx of Arthritis, Asthma, COPD, Severe Dementia, HTN, Pneumonia, Seizures, TIA , and Right AKA presents from detention due to fever of an unknown duration. multiple possible sources CT shows ? cavitating lesion - Tumor vs Fungus vs TB vs abscess poor prognosis from outset cultures sent
[2017-09-01] MEDS: Micafungin 100 MG in Sodium Chloride 0.9% 100 ML IV SCH (15:47)
[2017-09-01 15:57] LABS: URINE BILIRUBIN 1+ (NEGATIVE); URINE BLOOD NEGATIVE (NEGATIVE); URINE CLARITY Clear (Clear); URINE COLOR Amber (YELLOW); URINE GLUCOSE (UA) NORMAL (Normal); URINE LEUKOCYTE ESTERASE NEG Leu/uL (Negative); URINE PROTEIN 2+ mg/dL (NEGATIVE); URINE UROBILINOGEN NORMAL mg/dL (0.2-1.0)
--- NOTE | 2017-09-01 23:59 | CP.PCM.PN ---
Subjective - Date & Time of Evaluation Date of Evaluation: 09/01/17 Time of Evaluation: 19:35 - Subjective Subjective: Pt seen and examined at bedside, pt is still on ventilator, not weanable, afebrile, NAD, on 30% FiO2, mildly tacycardic, blood cultures neg Objective - Vital Signs/Intake and Output Vital Signs (last 24 hours): Temp Pulse Resp BP Pulse Ox 97.4 F L 101 H 24 95/45 L 99 09/01/17 20:00 09/01/17 23:00 09/01/17 23:00 09/01/17 23:01 09/01/17 23:00 Intake and Output: 09/01/17 09/02/17 18:59 06:59 Intake Total 1230 300 Output Total 440 200 Balance 790 100 - Medications Medications: Current Medications Acetaminophen (Tylenol 650 Mg Supp) 650 mg SD Q4 PRN PRN Reason: Fever >100.4 F Last Admin: 08/31/17 22:49 Dose: 650 mg Albuterol/Ipratropium (Duoneb 3 Mg/0.5 Mg (3 Ml) Ud) 3 ml INH RQ6 REPLAC[facility] BY [facility] Last Admin: 09/01/17 19:43 Dose: 3 ml Bisacodyl (Dulcolax) 10 mg SD ONCE PRN PRN Reason: consipation Carbamazepine (Tegretol) 100 mg PEG Q8 [facility]PL[facility] Last Admin: 09/01/17 21:36 Dose: 100 mg Enoxaparin Sodium (Lovenox) 40 mg SC DAILY REPLACED BY [facility] Last Admin: 09/01/17 09:31 Dose: 40 mg Metronidazole (Flagyl) 500 mg in 100 mls @ 100 mls/hr IVPB Q8 REPLACED BY [facility] PRN Reason: Protocol Last Admin: 09/01/17 21:33 Dose: 100 mls/hr Albumin Human (Albumin Human 25% (12.5 Gm/50 Ml)) 50 mls @ 1 mls/min IVPB Q8H REPLACED BY [facility] Stop: 09/02/17 02:04 Last Admin: 09/01/17 16:15 Dose: 1 mls/min Micafungin Sodium 100 mg/ (Sodium Chloride) 100 mls @ 100 mls/hr IV Q24H REPLACED BY [facility] PRN Reason: Protocol Last Admin: 09/01/17 15:47 Dose: 100 mls/hr Moxifloxacin HCl (Avelox) 400 mg PO Q24H REPLACED BY [facility] Last Admin: 09/01/17 15:50 Dose: 400 mg Pantoprazole Sodium (Protonix Susp) 40 mg PO DAILY REPLACED BY [facility] Last Admin: 09/01/17 09:31 Dose: 40 mg Rosuvastatin Calcium (Crestor) 5 mg PO HS REPLACED BY [facility] Last Admin: 09/01/17 21:33 Dose: 5 mg Valproate Sodium (Depakene Oral Soln) 250 mg PEG QID REPLACED BY [facility] Last Admin: 09/01/17 21:33 Dose: 250 mg - Labs Labs: 09/01/17 06:32 09/01/17 06:32 PT 16.5 SECONDS (9.7-12.2) H 08/31/17 06:36 INR 1.5 08/31/17 06:36 APTT 33 SECONDS (21-34) 08/31/17 06:36 - Constitutional Appears: No Acute Distress, Chronically Ill - Head Exam Head Exam: ATRAUMATIC, NORMAL INSPECTION, NORMOCEPHALIC - Eye Exam Eye Exam: EOMI, Normal appearance, PERRL Pupil Exam: NORMAL ACCOMODATION, PERRL - ENT Exam ENT Exam: Mucous Membranes Moist - Respiratory Exam Respiratory Exam: Clear to Ausculation Bilateral, NORMAL BREATHING PATTERN - Cardiovascular Exam Cardiovascular Exam: REGULAR RHYTHM, +S1, +S2. absent: Murmur - GI/Abdominal Exam GI & Abdominal Exam: Soft, Normal Bowel Sounds. absent: Tenderness Assessment and Plan (1) Sepsis Status: Acute (2) Fever Status: Acute (3) Seizure disorder Status: Acute (4) COPD (chronic obstructive pulmonary disease) Status: Chronic (5) PVD (peripheral vascular disease) Status: Chronic (6) Respiratory failure Status: Acute
[2017-09-02] MEDS: Albuterol-Ipratrop 3 mg / 0.5 (3 ml) UD INH SCH ×4 (01:28→19:29)
[2017-09-02] MEDS: metroNIDAZOLE IV 500 mg/100 ml 500 MG/100 ML BAG IVPB SCH ×3 (05:47→21:54)
[2017-09-02] MEDS: carBAMazepine Chew Tab 100 MG Chew Tab PEG SCH ×3 (05:47→21:53)
[2017-09-02 06:11] LABS: BASO % 0.3 % (0.0-2.0); EOS % 0.5 % (0.0-4.0); HEMOGLOBIN 7.1 g/dL (12.0-18.0); LYMPH % 10.5 % (20.0-40.0); MEAN CELL VOLUME 84.6 fL (80.0-94.0); MEAN CORPUSCULAR HEMOGLOBIN 28.1 pg (27.0-31.0); MEAN CORPUSCULAR HGB CONC 33.2 g/dL (33.0-37.0); MEAN PLATELET VOLUME 7.8 fL (7.2-11.7); MONO # 1.6 K/uL (0.0-0.8); MONO % 16.1 % (0.0-10.0); NEUT # 7.2 K/uL (1.8-7.0); NEUT % 72.6 % (50.0-75.0); RBC 2.53 Mil/uL (4.40-5.90); RED CELL DISTRIBUTION WIDTH 17.8 % (11.5-14.5); WHITE BLOOD COUNT 9.9 K/uL (4.8-10.8)
[2017-09-02 06:13] LABS: ABG ALLEN TEST POS; ARTERIAL BLOOD GAS O2 SAT 99.1 % (95-98); ARTERIAL BLOOD GAS PCO2 33 mm/Hg (35-45); ARTERIAL BLOOD GAS PH 7.38 (7.35-7.45); ARTERIAL BLOOD GAS PO2 93 mm/Hg (80-100); ARTERIAL BLOOD GAS TCO2 20.5 mmol/L (22-28)
[2017-09-02 06:32] LABS: ALB/GLOB RATIO 0.5 (1.0-2.1); ALBUMIN 1.9 g/dL (3.5-5.0); ALT/SGPT < 6 U/L (21-72); AST/SGOT 24 U/L (17-59); BLOOD UREA NITROGEN 14 mg/dL (9-20); CALCIUM 7.3 mg/dl (8.6-10.4); GFR AFRICAN-AMERICAN > 60; GFR NON-AFRICAN AMERICAN > 60
--- NOTE | 2017-09-02 08:30 | RAD ---
Chest x-ray single frontal view History: Ventilation. Comparison: 09/01/2017 Findings: Endotracheal tube extending into the mid thoracic trachea. Other lines and tubes in stable position. Worsening patchy increased markings at the left lung base may represent worsening atelectasis and or infiltrate with trace effusion. Postsurgical changes in the right leticia thorax with multiple rib deformities. Persistent dense consolidative opacification at the right upper to mid lung zone with some aeration in the opacifications at the right lung apex. Diffuse increased interstitial lung markings throughout the remainder of the right lung with nodular scattered densities. Enlarged ectatic aorta. Degenerative changes in the spine. Left basilar atelectasis. Deformity of the right proximal humerus. Impression: Worsening patchy opacity at the left lung base. Otherwise no significant interval change.
[2017-09-02] MEDS: Pantoprazole 40 mg Susp UD PO SCH (09:58)
[2017-09-02] MEDS: Valproic Acid 250 mg/5 ml UD Cup PEG SCH ×2 (09:58→21:53)
--- NOTE | 2017-09-02 10:26 | CP.CCUPN ---
"<Niraj Negrete - Last Filed: 09/02/17 10:12> CCU Subjective - Physician Review Subjective (Free Text): Patient seen and examined at bedside. Currently on Mechanical Ventilation PRVC mode. Patient is responsive to verbal and tactile stimuli. Generally more responsive overall. CCU Objective - Vital Signs / Intake & Output Vital Signs (Last 4 hours): Vital Signs Temp Pulse Resp BP Pulse Ox 09/02/17 08:01 100 H 21 104/56 L 96 09/02/17 08:00 97.6 F 97 09/02/17 07:01 99 H 21 114/56 L 97 Intake and Output (Last 8hrs): Intake & Output 09/01/17 09/02/17 09/02/17 22:59 06:59 14:59 Intake Total 570 350 0 Output Total 310 320 70 Balance 260 30 -70 Weight 136 lb 8 oz Intake: Intake, IV Amount 250 150 Left Medial Port Internal 250 150 Jugular Tube Feeding 320 200 0 Output: Urine 310 320 70 Urine, Voided 310 320 70 Other: # Bowel Movements 0 0 - Physical Exam Head: Positive for: Atraumatic, Normocephalic Pupils: Positive for: PERRL Mouth: Negative for: Moist Mucous Membranes Respiratory/Chest: Positive for: Decreased Breath Sounds (RUL ), Rales (B/L), Other (Intubated) Cardiovascular: Positive for: Normal S1, S2. Negative for: Tachycardic Abdomen: Positive for: Normal Bowel Sounds. Negative for: Distention Neurological: Negative for: GCS=15 (10T) Psychiatric: Negative for: Alert - Medications Active Medications: Active Medications Generic Name Dose Route Start Last Admin Trade Name Freq PRN Reason Stop Dose Admin Acetaminophen 650 mg 08/25/17 17:20 08/31/17 22:49 Tylenol 650 Mg Supp OH 650 mg Q4 PRN Administration Fever >100.4 F Albuterol/Ipratropium 3 ml 08/28/17 08:00 09/02/17 07:33 Duoneb 3 Mg/0.5 Mg (3 Ml) Ud INH 3 ml RQ6 AMY Administration Bisacodyl 10 mg 08/29/17 08:30 Dulcolax OH ONCE PRN consipation Carbamazepine 100 mg 08/24/17 22:00 09/02/17 05:47 Tegretol PEG 100 mg Q8 AMY Administration Enoxaparin Sodium 40 mg 08/24/17 18:00 09/01/17 09:31 Lovenox SC 40 mg DAILY AMY Administration Metronidazole 500 mg in 100 mls @ 100 mls/hr 08/31/17 14:00 09/02/17 05:47 Flagyl IVPB 100 mls/hr Q8 AMY Administration Protocol Micafungin Sodium 100 mg/ 100 mls @ 100 mls/hr 09/01/17 16:00 09/01/17 15:47 Sodium Chloride IV 100 mls/hr Q24H AMY Administration Protocol Potassium Chloride 20 meq in 100 mls @ 50 mls/hr 09/02/17 08:00 09/02/17 09: 59 Potassium Chloride 20 Meq/100 Ml IVPB 09/02/17 11:59 50 mls/hr Q2H AMY Administration Moxifloxacin HCl 400 mg 09/01/17 15:00 09/01/17 15:50 Avelox PO 400 mg Q24H AMY Administration Pantoprazole Sodium 40 mg 08/29/17 10:00 09/02/17 09:58 Protonix Susp PO 40 mg DAILY AMY Administration Rosuvastatin Calcium 5 mg 08/24/17 22:00 09/01/17 21:33 Crestor PO 5 mg HS AMY Administration Valproate Sodium 250 mg 08/24/17 18:00 09/02/17 09:58 Depakene Oral Soln PEG 250 mg QID AMY Administration - Patient Studies Lab Studies: Microbiology Studies 08/31/17 10:00 Blood Culture - Preliminary Blood NO GROWTH AFTER 24 HOURS 08/31/17 10:30 Blood Culture - Preliminary Blood NO GROWTH AFTER 24 HOURS 08/31/17 07:29 Urine Culture - Final Urine,Catheterized No Growth (<1,000 CFU/ML) Lab Studies 09/02/17 09/02/17 09/02/17 Range/Units 06:00 06:00 05:33 WBC 9.9 (4.8-10.8) K/uL RBC 2.53 L (4.40-5.90) Mil/uL Hgb 7.1 L (12.0-18.0) g/dL Hct 21.4 L (35.0-51.0) % MCV 84.6 (80.0-94.0) fL MCH 28.1 (27.0-31.0) pg MCHC 33.2 (33.0-37.0) g/dL RDW 17.8 H (11.5-14.5) % Plt Count 215 (130-400) K/uL MPV 7.8 (7.2-11.7) fL Neut % (Auto) 72.6 (50.0-75.0) % Lymph % (Auto) 10.5 L (20.0-40.0) % Pershing % (Auto) 16.1 H (0.0-10.0) % Eos % (Auto) 0.5 (0.0-4.0) % Baso % (Auto) 0.3 (0.0-2.0) % Neut # (Auto) 7.2 H (1.8-7.0) K/uL Lymph # (Auto) 1.0 (1.0-4.3) K/uL Pershing # (Auto) 1.6 H (0.0-0.8) K/uL Eos # (Auto) 0.0 (0.0-0.7) K/uL Baso # (Auto) 0.0 (0.0-0.2) K/uL Puncture Site R rad pCO2 33 L (35-45) mm/Hg pO2 93 (80-100) mm/Hg HCO3 21.0 (21-28) mmol/L ABG pH 7.38 (7.35-7.45) ABG Total CO2 20.5 L (22-28) mmol/L ABG O2 Saturation 99.1 H (95-98) % ABG Base Excess -5.1 L (-2.0-3.0) mmol/L ABG Hemoglobin 7.0 L (11.7-17.4) g/dL ABG Carboxyhemoglobin 1.8 H (0.5-1.5) % POC ABG HHb (Measured) 0.9 (0.0-5.0) % ABG Methemoglobin 1.2 (0.0-3.0) % Collin Test Pos A-a O2 Difference 115.0 mm/Hg Respiratory Index 1.2 Hgb O2 Saturation 96.0 (95.0-98.0) % Vent Mode Prvc Mechanical Rate 14 FiO2 35.0 % Tidal Volume 450 PEEP 5 Sodium 151 H (132-148) mmol/L Potassium 3.3 L (3.6-5.2) mmol/L Chloride 117 H (98-107) mmol/L Carbon Dioxide 19 L (22-30) mmol/L Anion Gap 17 (10-20) BUN 14 (9-20) mg/dL Creatinine 0.7 L (0.8-1.5) mg/dL Est GFR ( Amer) > 60 Est GFR (Non-Af Amer) > 60 POC Glucose (mg/dL) (65-110) mg/dL Random Glucose 91 (75-110) mg/dL Calcium 7.3 L (8.6-10.4) mg/dl Phosphorus 3.4 (2.5-4.5) mg/dL Magnesium 2.0 (1.6-2.3) mg/dL Total Bilirubin 2.8 H (0.2-1.3) mg/dL AST 24 (17-59) U/L ALT < 6 L D (21-72) U/L Alkaline Phosphatase 62 (38-126) U/L Total Protein 5.6 L (6.3-8.3) g/dL Albumin 1.9 L (3.5-5.0) g/dL Globulin 3.7 (2.2-3.9) gm/dL Albumin/Globulin Ratio 0.5 L (1.0-2.1) Urine Color (YELLOW) Urine Clarity (Clear) Urine pH (5.0-8.0) Ur Specific [place] (1.003-1.030) Urine Protein (NEGATIVE) mg/dL Urine Glucose (UA) (Normal) mg/dL Urine Ketones (NEGATIVE) mg/dL Urine Blood (NEGATIVE) Urine Nitrate (NEGATIVE) Urine Bilirubin (NEGATIVE) Urine Urobilinogen (0.2-1.0) mg/dL Ur Leukocyte Esterase (Negative) Hui/uL Urine WBC (Auto) (0-5) /hpf Urine RBC (Auto) (0-3) /hpf C. difficile Ag & Toxin (NEGATIVE) 09/02/17 09/01/17 09/01/17 Range/Units 04:54 23:32 17:41 WBC (4.8-10.8) K/uL RBC (4.40-5.90) Mil/uL Hgb (12.0-18.0) g/dL Hct (35.0-51.0) % MCV (80.0-94.0) fL MCH (27.0-31.0) pg MCHC (33.0-37.0) g/dL RDW (11.5-14.5) % Plt Count (130-400) K/uL MPV (7.2-11.7) fL Neut % (Auto) (50.0-75.0) % Lymph % (Auto) (20.0-40.0) % Pershing % (Auto) (0.0-10.0) % Eos % (Auto) (0.0-4.0) % Baso % (Auto) (0.0-2.0) % Neut # (Auto) (1.8-7.0) K/uL Lymph # (Auto) (1.0-4.3) K/uL Pershing # (Auto) (0.0-0.8) K/uL Eos # (Auto) (0.0-0.7) K/uL Baso # (Auto) (0.0-0.2) K/uL Puncture Site pCO2 (35-45) mm/Hg pO2 (80-100) mm/Hg HCO3 (21-28) mmol/L ABG pH (7.35-7.45) ABG Total CO2 (22-28) mmol/L ABG O2 Saturation (95-98) % ABG Base Excess (-2.0-3.0) mmol/L ABG Hemoglobin (11.7-17.4) g/dL ABG Carboxyhemoglobin (0.5-1.5) % POC ABG HHb (Measured) (0.0-5.0) % ABG Methemoglobin (0.0-3.0) % Collin Test A-a O2 Difference mm/Hg Respiratory Index Hgb O2 Saturation (95.0-98.0) % Vent Mode Mechanical Rate FiO2 % Tidal Volume PEEP Sodium (132-148) mmol/L Potassium (3.6-5.2) mmol/L Chloride (98-107) mmol/L Carbon Dioxide (22-30) mmol/L Anion Gap (10-20) BUN (9-20) mg/dL Creatinine (0.8-1.5) mg/dL Est GFR ( Amer) Est GFR (Non-Af Amer) POC Glucose (mg/dL) 109 90 123 H (65-110) mg/dL Random Glucose (75-110) mg/dL Calcium (8.6-10.4) mg/dl Phosphorus (2.5-4.5) mg/dL Magnesium (1.6-2.3) mg/dL Total Bilirubin (0.2-1.3) mg/dL AST (17-59) U/L ALT (21-72) U/L Alkaline Phosphatase (38-126) U/L Total Protein (6.3-8.3) g/dL Albumin (3.5-5.0) g/dL Globulin (2.2-3.9) gm/dL Albumin/Globulin Ratio (1.0-2.1) Urine Color (YELLOW) Urine Clarity (Clear) Urine pH (5.0-8.0) Ur Specific [place] (1.003-1.030) Urine Protein (NEGATIVE) mg/dL Urine Glucose (UA) (Normal) mg/dL Urine Ketones (NEGATIVE) mg/dL Urine Blood (NEGATIVE) Urine Nitrate (NEGATIVE) Urine Bilirubin (NEGATIVE) Urine Urobilinogen (0.2-1.0) mg/dL Ur Leukocyte Esterase (Negative) Hui/uL Urine WBC (Auto) (0-5) /hpf Urine RBC (Auto) (0-3) /hpf C. difficile Ag & Toxin (NEGATIVE) 09/01/17 09/01/17 09/01/17 Range/Units 15:38 11:32 08:41 WBC (4.8-10.8) K/uL RBC (4.40-5.90) Mil/uL Hgb (12.0-18.0) g/dL Hct (35.0-51.0) % MCV (80.0-94.0) fL MCH (27.0-31.0) pg MCHC (33.0-37.0) g/dL RDW (11.5-14.5) % Plt Count (130-400) K/uL MPV (7.2-11.7) fL Neut % (Auto) (50.0-75.0) % Lymph % (Auto) (20.0-40.0) % Pershing % (Auto) (0.0-10.0) % Eos % (Auto) (0.0-4.0) % Baso % (Auto) (0.0-2.0) % Neut # (Auto) (1.8-7.0) K/uL Lymph # (Auto) (1.0-4.3) K/uL Pershing # (Auto) (0.0-0.8) K/uL Eos # (Auto) (0.0-0.7) K/uL Baso # (Auto) (0.0-0.2) K/uL Puncture Site pCO2 (35-45) mm/Hg pO2 (80-100) mm/Hg HCO3 (21-28) mmol/L ABG pH (7.35-7.45) ABG Total CO2 (22-28) mmol/L ABG O2 Saturation (95-98) % ABG Base Excess (-2.0-3.0) mmol/L ABG Hemoglobin (11.7-17.4) g/dL ABG Carboxyhemoglobin (0.5-1.5) % POC ABG HHb (Measured) (0.0-5.0) % ABG Methemoglobin (0.0-3.0) % Collin Test A-a O2 Difference mm/Hg Respiratory Index Hgb O2 Saturation (95.0-98.0) % Vent Mode Mechanical Rate FiO2 % Tidal Volume PEEP Sodium (132-148) mmol/L Potassium (3.6-5.2) mmol/L Chloride (98-107) mmol/L Carbon Dioxide (22-30) mmol/L Anion Gap (10-20) BUN (9-20) mg/dL Creatinine (0.8-1.5) mg/dL Est GFR ( Amer) Est GFR (Non-Af Amer) POC Glucose (mg/dL) 82 (65-110) mg/dL Random Glucose (75-110) mg/dL Calcium (8.6-10.4) mg/dl Phosphorus (2.5-4.5) mg/dL Magnesium (1.6-2.3) mg/dL Total Bilirubin (0.2-1.3) mg/dL AST (17-59) U/L ALT (21-72) U/L Alkaline Phosphatase (38-126) U/L Total Protein (6.3-8.3) g/dL Albumin (3.5-5.0) g/dL Globulin (2.2-3.9) gm/dL Albumin/Globulin Ratio (1.0-2.1) Urine Color Nay (YELLOW) Urine Clarity Clear (Clear) Urine pH 6.0 (5.0-8.0) Ur Specific [place] 1.024 (1.003-1.030) Urine Protein 2+ H (NEGATIVE) mg/dL Urine Glucose (UA) Normal (Normal) mg/dL Urine Ketones Negative (NEGATIVE) mg/dL Urine Blood Negative (NEGATIVE) Urine Nitrate Negative (NEGATIVE) Urine Bilirubin 1+ H (NEGATIVE) Urine Urobilinogen Normal (0.2-1.0) mg/dL Ur Leukocyte Esterase Neg (Negative) Hui/uL Urine WBC (Auto) 2 (0-5) /hpf Urine RBC (Auto) 4 H (0-3) /hpf C. difficile Ag & Toxin Negative (NEGATIVE) Laboratory Results - last 24 hr 09/01/17 09/01/17 09/01/17 08:41 11:32 15:38 WBC RBC Hgb Hct MCV MCH MCHC RDW Plt Count MPV Neut % (Auto) Lymph % (Auto) Pershing % (Auto) Eos % (Auto) Baso % (Auto) Neut # (Auto) Lymph # (Auto) Pershing # (Auto) Eos # (Auto) Baso # (Auto) Puncture Site pCO2 pO2 HCO3 ABG pH ABG Total CO2 ABG O2 Saturation ABG Base Excess ABG Hemoglobin ABG Carboxyhemoglobin POC ABG HHb (Measured) ABG Methemoglobin Collin Test A-a O2 Difference Respiratory Index Hgb O2 Saturation Vent Mode Mechanical Rate FiO2 Tidal Volume PEEP Sodium Potassium Chloride Carbon Dioxide Anion Gap BUN Creatinine Est GFR ( Amer) Est GFR (Non-Af Amer) POC Glucose (mg/dL) 82 Random Glucose Calcium Phosphorus Magnesium Total Bilirubin AST ALT Alkaline Phosphatase Total Protein Albumin Globulin Albumin/Globulin Ratio Urine Color Nay Urine Clarity Clear Urine pH 6.0 Ur Specific [place] 1.024 Urine Protein 2+ H Urine Glucose (UA) Normal Urine Ketones Negative Urine Blood Negative Urine Nitrate Negative Urine Bilirubin 1+ H Urine Urobilinogen Normal Ur Leukocyte Esterase Neg Urine WBC (Auto) 2 Urine RBC (Auto) 4 H C. difficile Ag & Toxin Negative 09/01/17 09/01/17 09/02/17 17:41 23:32 04:54 WBC RBC Hgb Hct MCV MCH MCHC RDW Plt Count MPV Neut % (Auto) Lymph % (Auto) Pershing % (Auto) Eos % (Auto) Baso % (Auto) Neut # (Auto) Lymph # (Auto) Pershing # (Auto) Eos # (Auto) Baso # (Auto) Puncture Site pCO2 pO2 HCO3 ABG pH ABG Total CO2 ABG O2 Saturation ABG Base Excess ABG Hemoglobin ABG Carboxyhemoglobin POC ABG HHb (Measured) ABG Methemoglobin Collin Test A-a O2 Difference Respiratory Index Hgb O2 Saturation Vent Mode Mechanical Rate FiO2 Tidal Volume PEEP Sodium Potassium Chloride Carbon Dioxide Anion Gap BUN Creatinine Est GFR ( Amer) Est GFR (Non-Af Amer) POC Glucose (mg/dL) 123 H 90 109 Random Glucose Calcium Phosphorus Magnesium Total Bilirubin AST ALT Alkaline Phosphatase Total Protein Albumin Globulin Albumin/Globulin Ratio Urine Color Urine Clarity Urine pH Ur Specific [place] Urine Protein Urine Glucose (UA) Urine Ketones Urine Blood Urine Nitrate Urine Bilirubin Urine Urobilinogen Ur Leukocyte Esterase Urine WBC (Auto) Urine RBC (Auto) C. difficile Ag & Toxin 09/02/17 09/02/17 09/02/17 05:33 06:00 06:00 WBC 9.9 RBC 2.53 L Hgb 7.1 L Hct 21.4 L MCV 84.6 MCH 28.1 MCHC 33.2 RDW 17.8 H Plt Count 215 MPV 7.8 Neut % (Auto) 72.6 Lymph % (Auto) 10.5 L Pershing % (Auto) 16.1 H Eos % (Auto) 0.5 Baso % (Auto) 0.3 Neut # (Auto) 7.2 H Lymph # (Auto) 1.0 Pershing # (Auto) 1.6 H Eos # (Auto) 0.0 Baso # (Auto) 0.0 Puncture Site R rad pCO2 33 L pO2 93 HCO3 21.0 ABG pH 7.38 ABG Total CO2 20.5 L ABG O2 Saturation 99.1 H ABG Base Excess -5.1 L ABG Hemoglobin 7.0 L ABG Carboxyhemoglobin 1.8 H POC ABG HHb (Measured) 0.9 ABG Methemoglobin 1.2 Collin Test Pos A-a O2 Difference 115.0 Respiratory Index 1.2 Hgb O2 Saturation 96.0 Vent Mode Prvc Mechanical Rate 14 FiO2 35.0 Tidal Volume 450 PEEP 5 Sodium 151 H Potassium 3.3 L Chloride 117 H Carbon Dioxide 19 L Anion Gap 17 BUN 14 Creatinine 0.7 L Est GFR ( Amer) > 60 Est GFR (Non-Af Amer) > 60 POC Glucose (mg/dL) Random Glucose 91 Calcium 7.3 L Phosphorus 3.4 Magnesium 2.0 Total Bilirubin 2.8 H AST 24 ALT < 6 L D Alkaline Phosphatase 62 Total Protein 5.6 L Albumin 1.9 L Globulin 3.7 Albumin/Globulin Ratio 0.5 L Urine Color Urine Clarity Urine pH Ur Specific [place] Urine Protein Urine Glucose (UA) Urine Ketones Urine Blood Urine Nitrate Urine Bilirubin Urine Urobilinogen Ur Leukocyte Esterase Urine WBC (Auto) Urine RBC (Auto) C. difficile Ag & Toxin Fingerstick Blood Sugar Results: 109 Review of Systems - Review of Systems Systems not reviewed;Unavailable: Intubated Assessment/Plan - Assessment and Plan (Free Text) Assessment: 77 year old male with PMHx of Arthritis, Asthma, COPD, Severe Dementia, HTN, Pneumonia, Seizures, TIA, and Right AKA presents from senior care due to fever of an unknown duration. Code Sepsis called in ED. Patient admitted to ICU for evaluation and treatment of SEPSIS. Patient began desating requiring emergent intubation. 08/27: Mycoplasma PNA IgM - POSITIVE Plan: Neuro: GCS: 10T Sedation: None A: Severe Dementia, Hx of Seizure Home Carbamazepine 100mg Q8 | Home Valproic Acid 250mg PEG QID Cardio: A: HTN, Hx of TIA, Hypotension,HLD Crestor 5mg PO HS Pulm: A: Hypoxic Res. Failure, Asthma, COPD, Mycoplasma Pneumonia CXR (Admission): Stable postsurgical changes in the right lung with low lung volume and shift of mediastinal to the right. No acute findings. ABG (Adm): 7.4//326/21.6 ABG ( 08/27): 7.41//115/19.8 ABG (08/31): 7.42///21.6 ABG (09/01): 7.41//76/21.5 ABG (09/02): 7.38/33/93/21 DuoNebs Schedule Wean Fi02 as tolerated Daily CPAP trials. CXR (09/01): Impression read No interval change. Postoperative changes right leticia thorax with volume loss and right apical pleural thickening/fluid capping. ET tube unchanged. Per my read, there increased density in the right upper lobe infiltrate. CXR (09/01): Worsening patchy opacity at the left lung base. Otherwise no significant interval change. Plan for Bronchoscopy Endo A: Hypoglycemia (Stable) GI: A: Enterocolitis CT chest Abd/Pelvis (08/27): Enterocolits; ascities;mild bladder wall thickening with air in the bladder, iatrogenic versus infectious. Started on Flagyl Today. Renal: A: Hypocalcemia (stable), Hypokalemia (Resolved) Replace electrolytes PRN Heme/Onc: A: Normocytic Anemia HgB 7.1 from 8.1 yesterday 1 Unit PRBC Ordered. Lovenox Held, Stool Occult Blood Ordered ID A: Code Sepsis, Leukocytosis (Resolved) Febrile Overnight Cultures (08/31) Blood - NEGATIVE | Urine - NEGATIVE | Sputum - PENDING Blood Cultures - NEGATIVE for 3 days. Urine Cultures - NEGATIVE Wound Cultures - Coagulase Neg Staph, Likely normal Skin Melissa MRSA - NEGATIVE Mycoplasma Pneumonia IgM - POSITIVE,Patient has chronic Mycoplasma IgM. This was positive on 08/03/17 Antibiotics: Moxifloxacin 400mg Q24H, Micafungin 100mg Q24H, Flagyl 500mg Q8H ID on Consult, Recs Appreciated. AFB Sputum Culture, Aspergillus AB and Antigen, H. Galactomannan Antigen, Histoplasma AB, Quant Gold - PENDING Integumentary A: Left Lower ext wounds Wound Care. Proph Protonix Lovenox (Held) due to Drop in HgB Diet: Tube Feeding - Jevity 1.5 Lines: Right IJ Central Line Patient discussed with ICU Attending Niraj Negrete, PGY-1 <Juliann Bain M - Last Filed: 09/02/17 13:35> CCU Objective - Vital Signs / Intake & Output Vital Signs (Last 4 hours): Vital Signs Temp Pulse Resp BP Pulse Ox 09/02/17 13:05 98.9 F 98 H 23 102/46 L 09/02/17 12:50 98.7 F 96 H 21 101/56 L 09/02/17 12:40 98.8 F 96 H 24 109/80 09/02/17 11:01 94 H 19 105/41 L 99 09/02/17 10:01 98 H 18 109/50 L 98 Intake and Output (Last 8hrs): Intake & Output 09/01/17 09/02/17 09/02/17 22:59 06:59 14:59 Intake Total 570 350 200 Output Total 310 320 180 Balance 260 30 20 Weight 136 lb 8 oz Intake: Intake, IV Amount 250 150 200 Left Medial Port Internal 250 150 200 Jugular Tube Feeding 320 200 0 Blood Product 0 Red Blood Cells Cpd As1 0 Lr Unit [id number] Output: Urine 310 320 180 Urine, Voided 310 320 180 Other: # Bowel Movements 0 0 - Medications Active Medications: Active Medications Generic Name Dose Route Start Last Admin Trade Name Freq PRN Reason Stop Dose Admin Acetaminophen 650 mg 08/25/17 17:20 08/31/17 22:49 Tylenol 650 Mg Supp OH 650 mg Q4 PRN Administration Fever >100.4 F Albuterol/Ipratropium 3 ml 08/28/17 08:00 09/02/17 07:33 Duoneb 3 Mg/0.5 Mg (3 Ml) Ud INH 3 ml RQ6 AMY Administration Bisacodyl 10 mg 08/29/17 08:30 Dulcolax OH ONCE PRN consipation Carbamazepine 100 mg 08/24/17 22:00 09/02/17 05:47 Tegretol PEG 100 mg Q8 AMY Administration Enoxaparin Sodium 40 mg 08/24/17 18:00 09/01/17 09:31 Lovenox SC 40 mg DAILY AMY Administration Metronidazole 500 mg in 100 mls @ 100 mls/hr 08/31/17 14:00 09/02/17 05:47 Flagyl IVPB 100 mls/hr Q8 AMY Administration Protocol Micafungin Sodium 100 mg/ 100 mls @ 100 mls/hr 09/01/17 16:00 09/01/17 15:47 Sodium Chloride IV 100 mls/hr Q24H AMY Administration Protocol Moxifloxacin HCl 400 mg 09/01/17 15:00 09/01/17 15:50 Avelox PO 400 mg Q24H AMY Administration Pantoprazole Sodium 40 mg 08/29/17 10:00 09/02/17 09:58 Protonix Susp PO 40 mg DAILY AMY Administration Rosuvastatin Calcium 5 mg 08/24/17 22:00 09/01/17 21:33 Crestor PO 5 mg HS AMY Administration Valproate Sodium 250 mg 09/02/17 22:00 Depakene Oral Soln PEG Q12 AMY - Patient Studies Lab Studies: Microbiology Studies 08/31/17 11:00 Gram Stain - Final Sputum Sputum Culture - Final NORMAL ORAL MELISSA 08/31/17 10:00 Blood Culture - Preliminary Blood NO GROWTH AFTER 48 HOURS 08/31/17 10:30 Blood Culture - Preliminary Blood NO GROWTH AFTER 48 HOURS Lab Studies 09/02/17 09/02/17 09/02/17 Range/Units 11:29 09:54 06:00 WBC (4.8-10.8) K/uL RBC (4.40-5.90) Mil/uL Hgb (12.0-18.0) g/dL Hct (35.0-51.0) % MCV (80.0-94.0) fL MCH (27.0-31.0) pg MCHC (33.0-37.0) g/dL RDW (11.5-14.5) % Plt Count (130-400) K/uL MPV (7.2-11.7) fL Neut % (Auto) (50.0-75.0) % Lymph % (Auto) (20.0-40.0) % [place] % (Auto) (0.0-10.0) % Eos % (Auto) (0.0-4.0) % Baso % (Auto) (0.0-2.0) % Neut # (Auto) (1.8-7.0) K/uL Lymph # (Auto) (1.0-4.3) K/uL [place] # (Auto) (0.0-0.8) K/uL Eos # (Auto) (0.0-0.7) K/uL Baso # (Auto) (0.0-0.2) K/uL Puncture Site pCO2 (35-45) mm/Hg pO2 (80-100) mm/Hg HCO3 (21-28) mmol/L ABG pH (7.35-7.45) ABG Total CO2 (22-28) mmol/L ABG O2 Saturation (95-98) % ABG Base Excess (-2.0-3.0) mmol/L ABG Hemoglobin (11.7-17.4) g/dL ABG Carboxyhemoglobin (0.5-1.5) % POC ABG HHb (Measured) (0.0-5.0) % ABG Methemoglobin (0.0-3.0) % Collin Test A-a O2 Difference mm/Hg Respiratory Index Hgb O2 Saturation (95.0-98.0) % Vent Mode Mechanical Rate FiO2 % Tidal Volume PEEP Sodium 151 H (132-148) mmol/L Potassium 3.3 L (3.6-5.2) mmol/L Chloride 117 H (98-107) mmol/L Carbon Dioxide 19 L (22-30) mmol/L Anion Gap 17 (10-20) BUN 14 (9-20) mg/dL Creatinine 0.7 L (0.8-1.5) mg/dL Est GFR ( Amer) > 60 Est GFR (Non-Af Amer) > 60 POC Glucose (mg/dL) 73 (65-110) mg/dL Random Glucose 91 (75-110) mg/dL Calcium 7.3 L (8.6-10.4) mg/dl Phosphorus 3.4 (2.5-4.5) mg/dL Magnesium 2.0 (1.6-2.3) mg/dL Total Bilirubin 2.8 H (0.2-1.3) mg/dL AST 24 (17-59) U/L ALT < 6 L D (21-72) U/L Alkaline Phosphatase 62 (38-126) U/L Total Protein 5.6 L (6.3-8.3) g/dL Albumin 1.9 L (3.5-5.0) g/dL Globulin 3.7 (2.2-3.9) gm/dL Albumin/Globulin Ratio 0.5 L (1.0-2.1) Urine Color (YELLOW) Urine Clarity (Clear) Urine pH (5.0-8.0) Ur Specific [place] (1.003-1.030) Urine Protein (NEGATIVE) mg/dL Urine Glucose (UA) (Normal) mg/dL Urine Ketones (NEGATIVE) mg/dL Urine Blood (NEGATIVE) Urine Nitrate (NEGATIVE) Urine Bilirubin (NEGATIVE) Urine Urobilinogen (0.2-1.0) mg/dL Ur Leukocyte Esterase (Negative) Hui/uL Urine WBC (Auto) (0-5) /hpf Urine RBC (Auto) (0-3) /hpf Blood Type O POSITIVE Antibody Screen Negative 09/02/17 09/02/17 09/02/17 Range/Units 06:00 05:33 04:54 WBC 9.9 (4.8-10.8) K/uL RBC 2.53 L (4.40-5.90) Mil/uL Hgb 7.1 L (12.0-18.0) g/dL Hct 21.4 L (35.0-51.0) % MCV 84.6 (80.0-94.0) fL MCH 28.1 (27.0-31.0) pg MCHC 33.2 (33.0-37.0) g/dL RDW 17.8 H (11.5-14.5) % Plt Count 215 (130-400) K/uL MPV 7.8 (7.2-11.7) fL Neut % (Auto) 72.6 (50.0-75.0) % Lymph % (Auto) 10.5 L (20.0-40.0) % Pershing % (Auto) 16.1 H (0.0-10.0) % Eos % (Auto) 0.5 (0.0-4.0) % Baso % (Auto) 0.3 (0.0-2.0) % Neut # (Auto) 7.2 H (1.8-7.0) K/uL Lymph # (Auto) 1.0 (1.0-4.3) K/uL Pershing # (Auto) 1.6 H (0.0-0.8) K/uL Eos # (Auto) 0.0 (0.0-0.7) K/uL Baso # (Auto) 0.0 (0.0-0.2) K/uL Puncture Site R rad pCO2 33 L (35-45) mm/Hg pO2 93 (80-100) mm/Hg HCO3 21.0 (21-28) mmol/L ABG pH 7.38 (7.35-7.45) ABG Total CO2 20.5 L (22-28) mmol/L ABG O2 Saturation 99.1 H (95-98) % ABG Base Excess -5.1 L (-2.0-3.0) mmol/L ABG Hemoglobin 7.0 L (11.7-17.4) g/dL ABG Carboxyhemoglobin 1.8 H (0.5-1.5) % POC ABG HHb (Measured) 0.9 (0.0-5.0) % ABG Methemoglobin 1.2 (0.0-3.0) % Collin Test Pos A-a O2 Difference 115.0 mm/Hg Respiratory Index 1.2 Hgb O2 Saturation 96.0 (95.0-98.0) % Vent Mode Prvc Mechanical Rate 14 FiO2 35.0 % Tidal Volume 450 PEEP 5 Sodium (132-148) mmol/L Potassium (3.6-5.2) mmol/L Chloride (98-107) mmol/L Carbon Dioxide (22-30) mmol/L Anion Gap (10-20) BUN (9-20) mg/dL Creatinine (0.8-1.5) mg/dL Est GFR ( Amer) Est GFR (Non-Af Amer) POC Glucose (mg/dL) 109 (65-110) mg/dL Random Glucose (75-110) mg/dL Calcium (8.6-10.4) mg/dl Phosphorus (2.5-4.5) mg/dL Magnesium (1.6-2.3) mg/dL Total Bilirubin (0.2-1.3) mg/dL AST (17-59) U/L ALT (21-72) U/L Alkaline Phosphatase (38-126) U/L Total Protein (6.3-8.3) g/dL Albumin (3.5-5.0) g/dL Globulin (2.2-3.9) gm/dL Albumin/Globulin Ratio (1.0-2.1) Urine Color (YELLOW) Urine Clarity (Clear) Urine pH (5.0-8.0) Ur Specific [place] (1.003-1.030) Urine Protein (NEGATIVE) mg/dL Urine Glucose (UA) (Normal) mg/dL Urine Ketones (NEGATIVE) mg/dL Urine Blood (NEGATIVE) Urine Nitrate (NEGATIVE) Urine Bilirubin (NEGATIVE) Urine Urobilinogen (0.2-1.0) mg/dL Ur Leukocyte Esterase (Negative) Hui/uL Urine WBC (Auto) (0-5) /hpf Urine RBC (Auto) (0-3) /hpf Blood Type Antibody Screen 0509/01/17 09/01/17 Range/Units 23:32 17:41 15:38 WBC (4.8-10.8) K/uL RBC (4.40-5.90) Mil/uL Hgb (12.0-18.0) g/dL Hct (35.0-51.0) % MCV (80.0-94.0) fL MCH (27.0-31.0) pg MCHC (33.0-37.0) g/dL RDW (11.5-14.5) % Plt Count (130-400) K/uL MPV (7.2-11.7) fL Neut % (Auto) (50.0-75.0) % Lymph % (Auto) (20.0-40.0) % Pershing % (Auto) (0.0-10.0) % Eos % (Auto) (0.0-4.0) % Baso % (Auto) (0.0-2.0) % Neut # (Auto) (1.8-7.0) K/uL Lymph # (Auto) (1.0-4.3) K/uL Pershing # (Auto) (0.0-0.8) K/uL Eos # (Auto) (0.0-0.7) K/uL Baso # (Auto) (0.0-0.2) K/uL Puncture Site pCO2 (35-45) mm/Hg pO2 (80-100) mm/Hg HCO3 (21-28) mmol/L ABG pH (7.35-7.45) ABG Total CO2 (22-28) mmol/L ABG O2 Saturation (95-98) % ABG Base Excess (-2.0-3.0) mmol/L ABG Hemoglobin (11.7-17.4) g/dL ABG Carboxyhemoglobin (0.5-1.5) % POC ABG HHb (Measured) (0.0-5.0) % ABG Methemoglobin (0.0-3.0) % Collin Test A-a O2 Difference mm/Hg Respiratory Index Hgb O2 Saturation (95.0-98.0) % Vent Mode Mechanical Rate FiO2 % Tidal Volume PEEP Sodium (132-148) mmol/L Potassium (3.6-5.2) mmol/L Chloride (98-107) mmol/L Carbon Dioxide (22-30) mmol/L Anion Gap (10-20) BUN (9-20) mg/dL Creatinine (0.8-1.5) mg/dL Est GFR ( Amer) Est GFR (Non-Af Amer) POC Glucose (mg/dL) 90 123 H (65-110) mg/dL Random Glucose (75-110) mg/dL Calcium (8.6-10.4) mg/dl Phosphorus (2.5-4.5) mg/dL Magnesium (1.6-2.3) mg/dL Total Bilirubin (0.2-1.3) mg/dL AST (17-59) U/L ALT (21-72) U/L Alkaline Phosphatase (38-126) U/L Total Protein (6.3-8.3) g/dL Albumin (3.5-5.0) g/dL Globulin (2.2-3.9) gm/dL Albumin/Globulin Ratio (1.0-2.1) Urine Color Nay (YELLOW) Urine Clarity Clear (Clear) Urine pH 6.0 (5.0-8.0) Ur Specific [place] 1.024 (1.003-1.030) Urine Protein 2+ H (NEGATIVE) mg/dL Urine Glucose (UA) Normal (Normal) mg/dL Urine Ketones Negative (NEGATIVE) mg/dL Urine Blood Negative (NEGATIVE) Urine Nitrate Negative (NEGATIVE) Urine Bilirubin 1+ H (NEGATIVE) Urine Urobilinogen Normal (0.2-1.0) mg/dL Ur Leukocyte Esterase Neg (Negative) Hui/uL Urine WBC (Auto) 2 (0-5) /hpf Urine RBC (Auto) 4 H (0-3) /hpf Blood Type Antibody Screen Laboratory Results - last 24 hr 09/01/17 09/01/17 09/01/17 15:38 17:41 23:32 WBC RBC Hgb Hct MCV MCH MCHC RDW Plt Count MPV Neut % (Auto) Lymph % (Auto) [place] % (Auto) Eos % (Auto) Baso % (Auto) Neut # (Auto) Lymph # (Auto) [place] # (Auto) Eos # (Auto) Baso # (Auto) Puncture Site pCO2 pO2 HCO3 ABG pH ABG Total CO2 ABG O2 Saturation ABG Base Excess ABG Hemoglobin ABG Carboxyhemoglobin POC ABG HHb (Measured) ABG Methemoglobin [place] Test A-a O2 Difference Respiratory Index Hgb O2 Saturation Vent Mode Mechanical Rate FiO2 Tidal Volume PEEP Sodium Potassium Chloride Carbon Dioxide Anion Gap BUN Creatinine Est GFR ( Amer) Est GFR (Non-Af Amer) POC Glucose (mg/dL) 123 H 90 Random Glucose Calcium Phosphorus Magnesium Total Bilirubin AST ALT Alkaline Phosphatase Total Protein Albumin Globulin Albumin/Globulin Ratio Urine Color Nay Urine Clarity Clear Urine pH 6.0 Ur Specific [place] 1.024 Urine Protein 2+ H Urine Glucose (UA) Normal Urine Ketones Negative Urine Blood Negative Urine Nitrate Negative Urine Bilirubin 1+ H Urine Urobilinogen Normal Ur Leukocyte Esterase Neg Urine WBC (Auto) 2 Urine RBC (Auto) 4 H Blood Type Antibody Screen 09/02/17 09/02/17 09/02/17 04:54 05:33 06:00 WBC 9.9 RBC 2.53 L Hgb 7.1 L Hct 21.4 L MCV 84.6 MCH 28.1 MCHC 33.2 RDW 17.8 H Plt Count 215 MPV 7.8 Neut % (Auto) 72.6 Lymph % (Auto) 10.5 L [place] % (Auto) 16.1 H Eos % (Auto) 0.5 Baso % (Auto) 0.3 Neut # (Auto) 7.2 H Lymph # (Auto) 1.0 [place] # (Auto) 1.6 H Eos # (Auto) 0.0 Baso # (Auto) 0.0 Puncture Site R rad pCO2 33 L pO2 93 HCO3 21.0 ABG pH 7.38 ABG Total CO2 20.5 L ABG O2 Saturation 99.1 H ABG Base Excess -5.1 L ABG Hemoglobin 7.0 L ABG Carboxyhemoglobin 1.8 H POC ABG HHb (Measured) 0.9 ABG Methemoglobin 1.2 [place] Test Pos A-a O2 Difference 115.0 Respiratory Index 1.2 Hgb O2 Saturation 96.0 Vent Mode Prvc Mechanical Rate 14 FiO2 35.0 Tidal Volume 450 PEEP 5 Sodium Potassium Chloride Carbon Dioxide Anion Gap BUN Creatinine Est GFR ( Amer) Est GFR (Non-Af Amer) POC Glucose (mg/dL) 109 Random Glucose Calcium Phosphorus Magnesium Total Bilirubin AST ALT Alkaline Phosphatase Total Protein Albumin Globulin Albumin/Globulin Ratio Urine Color Urine Clarity Urine pH Ur Specific [place] Urine Protein Urine Glucose (UA) Urine Ketones Urine Blood Urine Nitrate Urine Bilirubin Urine Urobilinogen Ur Leukocyte Esterase Urine WBC (Auto) Urine RBC (Auto) Blood Type Antibody Screen 09/02/17 09/02/17 09/02/17 06:00 09:54 11:29 WBC RBC Hgb Hct MCV MCH MCHC RDW Plt Count MPV Neut % (Auto) Lymph % (Auto) [place] % (Auto) Eos % (Auto) Baso % (Auto) Neut # (Auto) Lymph # (Auto) [place] # (Auto) Eos # (Auto) Baso # (Auto) Puncture Site pCO2 pO2 HCO3 ABG pH ABG Total CO2 ABG O2 Saturation ABG Base Excess ABG Hemoglobin ABG Carboxyhemoglobin POC ABG HHb (Measured) ABG Methemoglobin [place] Test A-a O2 Difference Respiratory Index Hgb O2 Saturation Vent Mode Mechanical Rate FiO2 Tidal Volume PEEP Sodium 151 H Potassium 3.3 L Chloride 117 H Carbon Dioxide 19 L Anion Gap 17 BUN 14 Creatinine 0.7 L Est GFR ( Amer) > 60 Est GFR (Non-Af Amer) > 60 POC Glucose (mg/dL) 73 Random Glucose 91 Calcium 7.3 L Phosphorus 3.4 Magnesium 2.0 Total Bilirubin 2.8 H AST 24 ALT < 6 L D Alkaline Phosphatase 62 Total Protein 5.6 L Albumin 1.9 L Globulin 3.7 Albumin/Globulin Ratio 0.5 L Urine Color Urine Clarity Urine pH Ur Specific [place] Urine Protein Urine Glucose (UA) Urine Ketones Urine Blood Urine Nitrate Urine Bilirubin Urine Urobilinogen Ur Leukocyte Esterase Urine WBC (Auto) Urine RBC (Auto) Blood Type O POSITIVE Antibody Screen Negative Assessment/Plan - Assessment and Plan (Free Text) Plan: PAtient seen and examined at bedside. Patient continues to be on ventilator with right upper lobe atelectasis. Patient placed on CPAP today and failed 2nd tachypnea. patient remains hemodynamically stable. Above resident documents my findings and mangement. - Date & Time Date: 09/02/17 Time: 08:30"
[2017-09-02] MEDS ORDERED: EPINEPHrine 1 mg/ml (1:1000) Inj ONE (11:24)
[2017-09-02] MEDS ORDERED: Propofol 10 mg/ml Inj (20 ML) ONE (11:37)
[2017-09-02] MEDS: Lidocaine 2% MPF (5 ml) Inj ONE ×2 (11:39→12:10)
[2017-09-02] MEDS ORDERED: Propofol 10 mg/ml Inj (20 ML) IV ONE (11:40)
--- NOTE | 2017-09-02 12:30 | RAD ---
HISTORY: Post Bronchoscopy COMPARISON: 09/02/2017 AT 7:10 A.M. FINDINGS: The endotracheal tube is low in position and terminates just above the marii. The left IJV line terminates in the SVC. LUNGS: There is redemonstration of low lung volume on the right with shift of trachea and mediastinal to the right. There are cystic changes and presumable fluid in the right upper lobe. The left lung is well inflated and clear. PLEURA: No significant pleural effusion identified, no pneumothorax apparent. CARDIOVASCULAR: Normal. OSSEOUS STRUCTURES: Stable changes of right posterior ribs fixation. VISUALIZED UPPER ABDOMEN: Normal. OTHER FINDINGS: None. IMPRESSION: Endotracheal tube is low in position and terminates just above the marii. Otherwise no other significant interval change since the prior examination.
--- NOTE | 2017-09-02 14:44 | CP.PCM.PN ---
Subjective - Date & Time of Evaluation Date of Evaluation: 09/02/17 Time of Evaluation: 08:00 - Subjective Subjective: on Mechanical Ventilation PRVC mode. Patient is responsive to verbal and tactile stimuli. Objective - Vital Signs/Intake and Output Vital Signs (last 24 hours): Temp Pulse Resp BP Pulse Ox 99.0 F 94 H 18 115/68 99 09/02/17 13:50 09/02/17 13:50 09/02/17 13:50 09/02/17 13:50 09/02/17 11:01 Intake and Output: 09/02/17 09/02/17 06:59 18:59 Intake Total 610 200 Output Total 480 180 Balance 130 20 - Medications Medications: Current Medications Acetaminophen (Tylenol 650 Mg Supp) 650 mg AK Q4 PRN PRN Reason: Fever >100.4 F Last Admin: 08/31/17 22:49 Dose: 650 mg Albuterol/Ipratropium (Duoneb 3 Mg/0.5 Mg (3 Ml) Ud) 3 ml INH RQ6 [facility] Last Admin: 09/02/17 13:38 Dose: 3 ml Amantadine HCl (Symmetrel) 100 mg PO DAILY [facility] Bisacodyl (Dulcolax) 10 mg AK ONCE PRN PRN Reason: consipation Carbamazepine (Tegretol) 100 mg PEG Q8 [facility] Last Admin: 09/02/17 05:47 Dose: 100 mg Enoxaparin Sodium (Lovenox) 40 mg SC DAILY [facility] Last Admin: 09/01/17 09:31 Dose: 40 mg Metronidazole (Flagyl) 500 mg in 100 mls @ 100 mls/hr IVPB Q8 [facility] PRN Reason: Protocol Last Admin: 09/02/17 05:47 Dose: 100 mls/hr Micafungin Sodium 100 mg/ (Sodium Chloride) 100 mls @ 100 mls/hr IV Q24H [facility] PRN Reason: Protocol Last Admin: 09/01/17 15:47 Dose: 100 mls/hr Moxifloxacin HCl (Avelox) 400 mg PO Q24H [facility] Last Admin: 09/01/17 15:50 Dose: 400 mg Pantoprazole Sodium (Protonix Susp) 40 mg PO DAILY [facility] Last Admin: 09/02/17 09:58 Dose: 40 mg Rosuvastatin Calcium (Crestor) 5 mg PO HS [facility] Last Admin: 09/01/17 21:33 Dose: 5 mg Valproate Sodium (Depakene Oral Soln) 250 mg PEG Q12 [facility] - Labs Labs: 09/02/17 06:00 09/02/17 06:00 PT 16.5 SECONDS (9.7-12.2) H 08/31/17 06:36 INR 1.5 08/31/17 06:36 APTT 33 SECONDS (21-34) 08/31/17 06:36 - Constitutional Appears: Non-toxic, Confused, Cachectic, Chronically Ill - Head Exam Head Exam: NORMOCEPHALIC - Eye Exam Eye Exam: absent: Scleral icterus - ENT Exam ENT Exam: Mucous Membranes Dry - Neck Exam Neck Exam: absent: Lymphadenopathy - Respiratory Exam Respiratory Exam: Decreased Breath Sounds - Cardiovascular Exam Cardiovascular Exam: REGULAR RHYTHM - GI/Abdominal Exam GI & Abdominal Exam: Distended, Soft - Rectal Exam Rectal Exam: Deferred - Exam Exam: NORMAL INSPECTION - Extremities Exam Extremities Exam: absent: Pedal Edema - Back Exam Back Exam: absent: CVA tenderness (L), CVA tenderness (R) - Neurological Exam Neurological Exam: Altered - Psychiatric Exam Psychiatric exam: Depressed Assessment and Plan (1) Respiratory failure Status: Acute (2) Sepsis Status: Acute - Assessment and Plan (Free Text) Assessment: abnormal CXR with ? cavitation and mediastinal shift infectious process favored in view of hx of FUO although TB unlikely must be considered and ruled out prior to NH transfer Malignancy considered and Dr Washington to perform Bronchoscopy AFB smears, fungal smears and serologies sent
[2017-09-02] MEDS: Micafungin 100 MG in Sodium Chloride 0.9% 100 ML IV SCH (15:12)
--- NOTE | 2017-09-02 16:00 | CP.PCM.CON ---
History of Present Illness - History of Present Illness History of Present Illness: Mr. Cordero is a 77-year-old man with a past medical history of arthritis, asthma , COPD, severe dementia, HTN, pneumonia, epilepsy, TIA, and right AKA transferred from snf due to fever. He was intubated due to respiratory distress and continues to have depressed mentation. EEG was ordered and showed diffuse slowing. He is on depakote 250 mg QID, and carbamazepine. Review of Systems - Review of Systems All systems: reviewed and no additional remarkable complaints except Past Patient History - Infectious Disease Hx of Infectious Diseases: None - Past Medical History & Family History Past Medical History?: Yes - Past Social History Smoking Status: Unknown If Ever Smoked - CARDIAC Hx Hypertension: Yes - PULMONARY Hx Chronic Obstructive Pulmonary Disease (COPD): Yes - NEUROLOGICAL Hx Dementia: Yes Hx Seizures: Yes Hx Transient Ischemic Attacks (TIA): Yes - HEENT Hx HEENT Problems: Yes Other/Comment: RT EYELID DROOP - RENAL Hx Chronic Kidney Disease: No - ENDOCRINE/METABOLIC Hx Endocrine Disorders: No - HEMATOLOGICAL/ONCOLOGICAL Hx Anemia: Yes - INTEGUMENTARY Hx Dermatological Problems: Yes Other/Comment: multiple wounds - MUSCULOSKELETAL/RHEUMATOLOGICAL Hx Arthritis: Yes (BACK; KNEE R>L) - GASTROINTESTINAL Hx Gastrointestinal Disorders: No - GENITOURINARY/GYNECOLOGICAL Hx Genitourinary Disorders: Yes - PSYCHIATRIC Hx Substance Use: No - SURGICAL HISTORY Hx Surgeries: Yes Hx Amputation: Yes (right AKA) - ANESTHESIA Hx Anesthesia: Yes Hx Anesthesia Reactions: No Hx Malignant Hyperthermia: No Meds Allergies/Adverse Reactions: Allergies Allergy/AdvReac Type Severity Reaction Status Date / Time No Known Allergies Allergy Verified 07/25/17 01:13 - Medications Medications: Current Medications Acetaminophen (Tylenol 650 Mg Supp) 650 mg ID Q4 PRN PRN Reason: Fever >100.4 F Last Admin: 08/31/17 22:49 Dose: 650 mg Albuterol/Ipratropium (Duoneb 3 Mg/0.5 Mg (3 Ml) Ud) 3 ml INH RQ6 [facility] Last Admin: 09/02/17 13:38 Dose: 3 ml Amantadine HCl (Symmetrel) 100 mg PO DAILY [facility] Bisacodyl (Dulcolax) 10 mg ID ONCE PRN PRN Reason: consipation Carbamazepine (Tegretol) 100 mg PEG Q8 [facility] Last Admin: 09/02/17 15:11 Dose: 100 mg Enoxaparin Sodium (Lovenox) 40 mg SC DAILY [facility] Last Admin: 09/01/17 09:31 Dose: 40 mg Metronidazole (Flagyl) 500 mg in 100 mls @ 100 mls/hr IVPB Q8 [facility] PRN Reason: Protocol Last Admin: 09/02/17 15:07 Dose: 100 mls/hr Micafungin Sodium 100 mg/ (Sodium Chloride) 100 mls @ 100 mls/hr IV Q24H [facility] PRN Reason: Protocol Last Admin: 09/02/17 15:12 Dose: 100 mls/hr Moxifloxacin HCl (Avelox) 400 mg PO Q24H [facility] Last Admin: 09/02/17 15:07 Dose: 400 mg Pantoprazole Sodium (Protonix Susp) 40 mg PO DAILY [facility] Last Admin: 09/02/17 09:58 Dose: 40 mg Rosuvastatin Calcium (Crestor) 5 mg PO HS [facility] Last Admin: 09/01/17 21:33 Dose: 5 mg Valproate Sodium (Depakene Oral Soln) 250 mg PEG Q12 [facility] Physical Exam - Neurological Exam Additional comments: Intubated, not currently sedated, but had received propofol recently. Moves all extremities, does not follow command, opens eyes spontaneously, responds to painful stimulus with localizing. Plantar responses are equivocal, reflexes are normal. Results - Vital Signs Recent Vital Signs: Last Vital Signs Temp 98.9 F 09/02/17 14:20 Pulse 96 H 09/02/17 15:06 Resp 18 09/02/17 15:06 BP 103/61 09/02/17 15:06 Pulse Ox 97 09/02/17 15:06 - Labs Result Diagrams: 09/02/17 06:00 09/02/17 06:00 Labs: Laboratory Results - last 24 hr 09/01/17 09/01/17 09/01/17 15:38 17:41 23:32 WBC RBC Hgb Hct MCV MCH MCHC RDW Plt Count MPV Neut % (Auto) Lymph % (Auto) [place] % (Auto) Eos % (Auto) Baso % (Auto) Neut # (Auto) Lymph # (Auto) [place] # (Auto) Eos # (Auto) Baso # (Auto) Puncture Site pCO2 pO2 HCO3 ABG pH ABG Total CO2 ABG O2 Saturation ABG Base Excess ABG Hemoglobin ABG Carboxyhemoglobin POC ABG HHb (Measured) ABG Methemoglobin [place] Test A-a O2 Difference Respiratory Index Hgb O2 Saturation Vent Mode Mechanical Rate FiO2 Tidal Volume PEEP Sodium Potassium Chloride Carbon Dioxide Anion Gap BUN Creatinine Est GFR ( Amer) Est GFR (Non-Af Amer) POC Glucose (mg/dL) 123 H 90 Random Glucose Calcium Phosphorus Magnesium Total Bilirubin AST ALT Alkaline Phosphatase Total Protein Albumin Globulin Albumin/Globulin Ratio Urine Color Nay Urine Clarity Clear Urine pH 6.0 Ur Specific [place] 1.024 Urine Protein 2+ H Urine Glucose (UA) Normal Urine Ketones Negative Urine Blood Negative Urine Nitrate Negative Urine Bilirubin 1+ H Urine Urobilinogen Normal Ur Leukocyte Esterase Neg Urine WBC (Auto) 2 Urine RBC (Auto) 4 H Stool Occult Blood Blood Type Antibody Screen 09/02/17 09/02/17 09/02/17 04:54 05:33 06:00 WBC 9.9 RBC 2.53 L Hgb 7.1 L Hct 21.4 L MCV 84.6 MCH 28.1 MCHC 33.2 RDW 17.8 H Plt Count 215 MPV 7.8 Neut % (Auto) 72.6 Lymph % (Auto) 10.5 L [place] % (Auto) 16.1 H Eos % (Auto) 0.5 Baso % (Auto) 0.3 Neut # (Auto) 7.2 H Lymph # (Auto) 1.0 [place] # (Auto) 1.6 H Eos # (Auto) 0.0 Baso # (Auto) 0.0 Puncture Site R rad pCO2 33 L pO2 93 HCO3 21.0 ABG pH 7.38 ABG Total CO2 20.5 L ABG O2 Saturation 99.1 H ABG Base Excess -5.1 L ABG Hemoglobin 7.0 L ABG Carboxyhemoglobin 1.8 H POC ABG HHb (Measured) 0.9 ABG Methemoglobin 1.2 [place] Test Pos A-a O2 Difference 115.0 Respiratory Index 1.2 Hgb O2 Saturation 96.0 Vent Mode Prvc Mechanical Rate 14 FiO2 35.0 Tidal Volume 450 PEEP 5 Sodium Potassium Chloride Carbon Dioxide Anion Gap BUN Creatinine Est GFR ( Amer) Est GFR (Non-Af Amer) POC Glucose (mg/dL) 109 Random Glucose Calcium Phosphorus Magnesium Total Bilirubin AST ALT Alkaline Phosphatase Total Protein Albumin Globulin Albumin/Globulin Ratio Urine Color Urine Clarity Urine pH Ur Specific [place] Urine Protein Urine Glucose (UA) Urine Ketones Urine Blood Urine Nitrate Urine Bilirubin Urine Urobilinogen Ur Leukocyte Esterase Urine WBC (Auto) Urine RBC (Auto) Stool Occult Blood Blood Type Antibody Screen 09/02/17 09/02/17 09/02/17 06:00 09:54 11:29 WBC RBC Hgb Hct MCV MCH MCHC RDW Plt Count MPV Neut % (Auto) Lymph % (Auto) [place] % (Auto) Eos % (Auto) Baso % (Auto) Neut # (Auto) Lymph # (Auto) [place] # (Auto) Eos # (Auto) Baso # (Auto) Puncture Site pCO2 pO2 HCO3 ABG pH ABG Total CO2 ABG O2 Saturation ABG Base Excess ABG Hemoglobin ABG Carboxyhemoglobin POC ABG HHb (Measured) ABG Methemoglobin [place] Test A-a O2 Difference Respiratory Index Hgb O2 Saturation Vent Mode Mechanical Rate FiO2 Tidal Volume PEEP Sodium 151 H Potassium 3.3 L Chloride 117 H Carbon Dioxide 19 L Anion Gap 17 BUN 14 Creatinine 0.7 L Est GFR ( Amer) > 60 Est GFR (Non-Af Amer) > 60 POC Glucose (mg/dL) 73 Random Glucose 91 Calcium 7.3 L Phosphorus 3.4 Magnesium 2.0 Total Bilirubin 2.8 H AST 24 ALT < 6 L D Alkaline Phosphatase 62 Total Protein 5.6 L Albumin 1.9 L Globulin 3.7 Albumin/Globulin Ratio 0.5 L Urine Color Urine Clarity Urine pH Ur Specific [place] Urine Protein Urine Glucose (UA) Urine Ketones Urine Blood Urine Nitrate Urine Bilirubin Urine Urobilinogen Ur Leukocyte Esterase Urine WBC (Auto) Urine RBC (Auto) Stool Occult Blood Blood Type O POSITIVE Antibody Screen Negative 09/02/17 15:41 WBC RBC Hgb Hct MCV MCH MCHC RDW Plt Count MPV Neut % (Auto) Lymph % (Auto) [place] % (Auto) Eos % (Auto) Baso % (Auto) Neut # (Auto) Lymph # (Auto) [place] # (Auto) Eos # (Auto) Baso # (Auto) Puncture Site pCO2 pO2 HCO3 ABG pH ABG Total CO2 ABG O2 Saturation ABG Base Excess ABG Hemoglobin ABG Carboxyhemoglobin POC ABG HHb (Measured) ABG Methemoglobin [place]lin Test A-a O2 Difference Respiratory Index Hgb O2 Saturation Vent Mode Mechanical Rate FiO2 Tidal Volume PEEP Sodium Potassium Chloride Carbon Dioxide Anion Gap BUN Creatinine Est GFR ( Amer) Est GFR (Non-Af Amer) POC Glucose (mg/dL) Random Glucose Calcium Phosphorus Magnesium Total Bilirubin AST ALT Alkaline Phosphatase Total Protein Albumin Globulin Albumin/Globulin Ratio Urine Color Urine Clarity Urine pH Ur Specific [place] Urine Protein Urine Glucose (UA) Urine Ketones Urine Blood Urine Nitrate Urine Bilirubin Urine Urobilinogen Ur Leukocyte Esterase Urine WBC (Auto) Urine RBC (Auto) Stool Occult Blood Negative Blood Type Antibody Screen Assessment & Plan (1) Toxic metabolic encephalopathy Assessment and Plan: The underlying infectious process is being treated, but the patient has severe dementia and may take longer to respond with mental status improvement. I recommend decreasing the dose of depakote from 250 QID to 250 BID to decrease suppression of mental status. I also recommend adding amantadine 100 mg daily to help with improving wakefulness. Neurology will follow. Thank you. Status: Acute Priority: High
[2017-09-02] MEDS ORDERED: Dextrose 50% SYRINGE Inj (50 ml) IV STA ×2 (17:41→23:50)
--- NOTE | 2017-09-02 17:51 | CP.PCM.PN ---
Subjective - Date & Time of Evaluation Date of Evaluation: 09/02/17 Time of Evaluation: 12:00 - Subjective Subjective: the patient seen and examined Remains lethargic Not tolerating weaning Status post bronchoscopy with bronchoalveolar lavage Afebrile Objective - Vital Signs/Intake and Output Vital Signs (last 24 hours): Temp Pulse Resp BP Pulse Ox 98.7 F 93 H 16 94/57 L 96 09/02/17 16:00 09/02/17 15:15 09/02/17 15:15 09/02/17 15:15 09/02/17 16:00 Intake and Output: 09/02/17 09/02/17 06:59 18:59 Intake Total 610 685 Output Total 480 355 Balance 130 330 - Medications Medications: Current Medications Acetaminophen (Tylenol 650 Mg Supp) 650 mg [place] Q4 PRN PRN Reason: Fever >100.4 F Last Admin: 08/31/17 22:49 Dose: 650 mg Albuterol/Ipratropium (Duoneb 3 Mg/0.5 Mg (3 Ml) Ud) 3 ml INH RQ6 [facility] Last Admin: 09/02/17 13:38 Dose: 3 ml Amantadine HCl (Symmetrel) 100 mg PO DAILY [facility] Bisacodyl (Dulcolax) 10 mg [place] ONCE PRN PRN Reason: consipation Carbamazepine (Tegretol) 100 mg PEG Q8 [facility] Last Admin: 09/02/17 15:11 Dose: 100 mg Enoxaparin Sodium (Lovenox) 40 mg SC DAILY [facility] Last Admin: 09/01/17 09:31 Dose: 40 mg Metronidazole (Flagyl) 500 mg in 100 mls @ 100 mls/hr IVPB Q8 [facility] PRN Reason: Protocol Last Admin: 09/02/17 15:07 Dose: 100 mls/hr Micafungin Sodium 100 mg/ (Sodium Chloride) 100 mls @ 100 mls/hr IV Q24H [facility] PRN Reason: Protocol Last Admin: 09/02/17 15:12 Dose: 100 mls/hr Moxifloxacin HCl (Avelox) 400 mg PO Q24H [facility] Last Admin: 09/02/17 15:07 Dose: 400 mg Pantoprazole Sodium (Protonix Susp) 40 mg PO DAILY [facility] Last Admin: 09/02/17 09:58 Dose: 40 mg Rosuvastatin Calcium (Crestor) 5 mg PO HS [facility] Last Admin: 09/01/17 21:33 Dose: 5 mg Valproate Sodium (Depakene Oral Soln) 250 mg PEG Q12 [facility] - Labs Labs: 09/02/17 06:00 09/02/17 06:00 PT 16.5 SECONDS (9.7-12.2) H 08/31/17 06:36 INR 1.5 08/31/17 06:36 APTT 33 SECONDS (21-34) 08/31/17 06:36 - Head Exam Head Exam: ATRAUMATIC, NORMOCEPHALIC - ENT Exam ENT Exam: Mucous Membranes Moist - Neck Exam Neck Exam: Normal Inspection - Respiratory Exam Respiratory Exam: Decreased Breath Sounds - Cardiovascular Exam Cardiovascular Exam: REGULAR RHYTHM - GI/Abdominal Exam GI & Abdominal Exam: Soft Assessment and Plan (1) Respiratory failure Assessment & Plan: Status post bronchoscopy with bronchoalveolar lavage Followup culture and sensitivity Transfuse if necessary Continue antibiotics Continuous peg feeding patient seen by neurology Status: Acute (2) Anemia Status: Acute (3) Pneumonia Status: Acute
--- NOTE | 2017-09-02 23:21 | CP.PCM.PN ---
Subjective - Date & Time of Evaluation Date of Evaluation: 09/02/17 Time of Evaluation: 18:45 - Subjective Subjective: patient seen and examined Remains lethargic Not tolerating weaning,he is on mechanical ventilator Status post bronchoscopy with bronchoalveolar lavage Afebrile bronchospoy reveals atelectasis and mucous plugs, although is in no resp distress and comfortable, on med management, antibiotics Objective - Vital Signs/Intake and Output Vital Signs (last 24 hours): Temp Pulse Resp BP Pulse Ox 99.4 F 95 H 26 H 105/67 93 L 09/02/17 20:00 09/02/17 22:00 09/02/17 22:00 09/02/17 22:03 09/02/17 22:00 Intake and Output: 09/02/17 09/03/17 18:59 06:59 Intake Total 765 310 Output Total 380 90 Balance 385 220 - Medications Medications: Current Medications Acetaminophen (Tylenol 650 Mg Supp) 650 mg [place] Q4 PRN PRN Reason: Fever >100.4 F Last Admin: 08/31/17 22:49 Dose: 650 mg Albuterol/Ipratropium (Duoneb 3 Mg/0.5 Mg (3 Ml) Ud) 3 ml INH RQ6 [facility] Last Admin: 09/02/17 19:29 Dose: 3 ml Amantadine HCl (Symmetrel) 100 mg PO DAILY [facility] Bisacodyl (Dulcolax) 10 mg [place] ONCE PRN PRN Reason: consipation Carbamazepine (Tegretol) 100 mg PEG Q8 [facility] Last Admin: 09/02/17 21:53 Dose: 100 mg Enoxaparin Sodium (Lovenox) 40 mg SC DAILY [facility] Last Admin: 09/01/17 09:31 Dose: 40 mg Metronidazole (Flagyl) 500 mg in 100 mls @ 100 mls/hr IVPB Q8 [facility] PRN Reason: Protocol Last Admin: 09/02/17 21:54 Dose: 100 mls/hr Micafungin Sodium 100 mg/ (Sodium Chloride) 100 mls @ 100 mls/hr IV Q24H [facility] PRN Reason: Protocol Last Admin: 09/02/17 15:12 Dose: 100 mls/hr Moxifloxacin HCl (Avelox) 400 mg PO Q24H [facility] Last Admin: 09/02/17 15:07 Dose: 400 mg Pantoprazole Sodium (Protonix Susp) 40 mg PO DAILY [facility] Last Admin: 09/02/17 09:58 Dose: 40 mg Rosuvastatin Calcium (Crestor) 5 mg PO HS [facility] Last Admin: 09/02/17 21:53 Dose: 5 mg Valproate Sodium (Depakene Oral Soln) 250 mg PEG Q12 [facility] Last Admin: 09/02/17 21:53 Dose: 250 mg - Labs Labs: 09/02/17 06:00 09/02/17 06:00 PT 16.5 SECONDS (9.7-12.2) H 08/31/17 06:36 INR 1.5 08/31/17 06:36 APTT 33 SECONDS (21-34) 08/31/17 06:36 - Constitutional Appears: No Acute Distress, Chronically Ill - Head Exam Head Exam: ATRAUMATIC, NORMAL INSPECTION, NORMOCEPHALIC - Eye Exam Eye Exam: EOMI, Normal appearance, PERRL Pupil Exam: NORMAL ACCOMODATION, PERRL - Respiratory Exam Respiratory Exam: Decreased Breath Sounds Assessment and Plan (1) Sepsis Status: Acute (2) Fever Status: Acute (3) Seizure disorder Status: Acute (4) COPD (chronic obstructive pulmonary disease) Status: Chronic (5) PVD (peripheral vascular disease) Status: Chronic (6) Respiratory failure Status: Acute
[2017-09-03] MEDS: Albuterol-Ipratrop 3 mg / 0.5 (3 ml) UD INH SCH ×4 (01:30→19:28)
[2017-09-03] MEDS: metroNIDAZOLE IV 500 mg/100 ml 500 MG/100 ML BAG IVPB SCH ×3 (05:34→21:17)
[2017-09-03] MEDS: carBAMazepine Chew Tab 100 MG Chew Tab PEG SCH ×3 (05:36→21:20)
[2017-09-03 05:37] LABS: ABG ALLEN TEST POS; ARTERIAL BLOOD GAS HCO3 21.5 mmol/L (21-28); ARTERIAL BLOOD GAS HEMOGLOBIN 8.7 g/dL (11.7-17.4); ARTERIAL BLOOD GAS O2 SAT 99.1 % (95-98); ARTERIAL BLOOD GAS PCO2 31 mm/Hg (35-45); ARTERIAL BLOOD GAS PH 7.41 (7.35-7.45); ARTERIAL BLOOD GAS PO2 93 mm/Hg (80-100); ARTERIAL BLOOD GAS TCO2 20.6 mmol/L (22-28)
[2017-09-03 06:31] LABS: BASO # 0.1 K/uL (0.0-0.2); BASO % 0.5 % (0.0-2.0); EOS % 0.5 % (0.0-4.0); HEMOGLOBIN 8.8 g/dL (12.0-18.0); LYMPH # 1.2 K/uL (1.0-4.3); LYMPH % 12.4 % (20.0-40.0); MEAN CELL VOLUME 84.2 fL (80.0-94.0); MEAN CORPUSCULAR HEMOGLOBIN 28.2 pg (27.0-31.0); MEAN CORPUSCULAR HGB CONC 33.6 g/dL (33.0-37.0); MEAN PLATELET VOLUME 7.9 fL (7.2-11.7); MONO # 1.5 K/uL (0.0-0.8); MONO % 15.3 % (0.0-10.0); NEUT # 7.1 K/uL (1.8-7.0); NEUT % 71.3 % (50.0-75.0); NRBC % 0.2 % (0.0-2.0); RBC 3.12 Mil/uL (4.40-5.90); RED CELL DISTRIBUTION WIDTH 17.4 % (11.5-14.5)
[2017-09-03 06:48] LABS: ALB/GLOB RATIO 0.5 (1.0-2.1); ALT/SGPT 7 U/L (21-72); AST/SGOT 24 U/L (17-59); BLOOD UREA NITROGEN 11 mg/dL (9-20); CALCIUM 7.3 mg/dl (8.6-10.4); GFR AFRICAN-AMERICAN > 60; GFR NON-AFRICAN AMERICAN > 60
--- NOTE | 2017-09-03 07:16 | CP.PCM.PN ---
Subjective - Date & Time of Evaluation Date of Evaluation: 09/03/17 Time of Evaluation: 07:13 - Subjective Subjective: Mr. Cordero was seen and examined at the bedside in ICU. He remains on mechanical ventilator on PRVC mode. Pupils sluggishly reactive 3 mm, responsive to pain stimuli, and opens eyes spontaneously.He has episode of restlessness with bilateral hand mittens. There was no untoward events overnight. Objective - Vital Signs/Intake and Output Vital Signs (last 24 hours): Temp Pulse Resp BP Pulse Ox 98.7 F 101 H 28 H 101/47 L 100 09/03/17 04:00 09/03/17 06:25 09/03/17 06:25 09/03/17 06:25 09/03/17 06:25 Intake and Output: 09/03/17 09/03/17 06:59 18:59 Intake Total 730 Output Total 300 Balance 430 - Medications Medications: Current Medications Acetaminophen (Tylenol 650 Mg Supp) 650 mg OH Q4 PRN PRN Reason: Fever >100.4 F Last Admin: 08/31/17 22:49 Dose: 650 mg Albuterol/Ipratropium (Duoneb 3 Mg/0.5 Mg (3 Ml) Ud) 3 ml INH RQ6 AMY Last Admin: 09/03/17 01:30 Dose: 3 ml Amantadine HCl (Symmetrel) 100 mg PO DAILY AMY Bisacodyl (Dulcolax) 10 mg OH ONCE PRN PRN Reason: consipation Carbamazepine (Tegretol) 100 mg PEG Q8 AMY Last Admin: 09/03/17 05:36 Dose: 100 mg Enoxaparin Sodium (Lovenox) 40 mg SC DAILY AMY Last Admin: 09/01/17 09:31 Dose: 40 mg Metronidazole (Flagyl) 500 mg in 100 mls @ 100 mls/hr IVPB Q8 AMY PRN Reason: Protocol Last Admin: 09/03/17 05:34 Dose: 100 mls/hr Micafungin Sodium 100 mg/ (Sodium Chloride) 100 mls @ 100 mls/hr IV Q24H AMY PRN Reason: Protocol Last Admin: 09/02/17 15:12 Dose: 100 mls/hr Lorazepam (Ativan) 1 mg IVP Q4H PRN PRN Reason: Anxiety Moxifloxacin HCl (Avelox) 400 mg PO Q24H [facility] Last Admin: 09/02/17 15:07 Dose: 400 mg Pantoprazole Sodium (Protonix Susp) 40 mg PO DAILY [facility] Last Admin: 09/02/17 09:58 Dose: 40 mg Rosuvastatin Calcium (Crestor) 5 mg PO HS [facility] Last Admin: 09/02/17 21:53 Dose: 5 mg Valproate Sodium (Depakene Oral Soln) 250 mg PEG Q12 [facility] Last Admin: 09/02/17 21:53 Dose: 250 mg - Labs Labs: 09/03/17 06:23 09/03/17 06:23 PT 16.5 SECONDS (9.7-12.2) H 08/31/17 06:36 INR 1.5 08/31/17 06:36 APTT 33 SECONDS (21-34) 08/31/17 06:36 - Constitutional Appears: No Acute Distress - Head Exam Head Exam: NORMAL INSPECTION - Eye Exam Pupil Exam: PERRL Additional comments: sluggish - Neurological Exam Neurological Exam: Awake Neuro motor strength exam: Left Upper Extremity: 3, Right Upper Extremity: 3, Left Lower Extremity: 3, 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 Assessment and Plan (1) Toxic metabolic encephalopathy Assessment & Plan: Case discussed with Dr. Zacarias, continue all current medical regimen. Recommend head of elevated at least 30 degrees, hydration. Status: Acute
--- NOTE | 2017-09-03 08:53 | RAD ---
HISTORY: Intubated COMPARISON: 09/02/2017 FINDINGS: The endotracheal tube terminates 10 mm proximal to the marii. The left IJV line terminates in the SVC. LUNGS: There is redemonstration of cystic changes/ bulla in the right upper lobe. There is low lung volume on the right with shift of trachea and mediastinal to the right. The left lung is well inflated and clear PLEURA: Again seen is a small right pleural effusion, no pneumothorax apparent. CARDIOVASCULAR: Stable. OSSEOUS STRUCTURES: Stable postsurgical changes in the right mid posterior ribs. VISUALIZED UPPER ABDOMEN: Normal. OTHER FINDINGS: None. IMPRESSION: No significant interval change in right upper lobe cystic changes/ bulla and right pleural effusion. Stable position of endotracheal tube.
[2017-09-03] MEDS: Amantadine 50 mg/5 ml Syrup (473 ml) PO SCH (09:01)
[2017-09-03] MEDS: Valproic Acid 250 mg/5 ml UD Cup PEG SCH ×2 (09:01→21:19)
--- NOTE | 2017-09-03 10:07 | CP.CCUPN ---
"<Niraj Negrete - Last Filed: 09/03/17 09:59> CCU Subjective - Physician Review Subjective (Free Text): Patient seen and examined at bedside. Currently on Mechanical Ventilation PRVC mode. Patient is responsive to verbal and tactile stimuli. Generally more responsive overall. CCU Objective - Vital Signs / Intake & Output Vital Signs (Last 4 hours): Vital Signs Pulse Resp BP Pulse Ox 09/03/17 08:17 103 H 30 H 113/56 L 100 09/03/17 08:00 99 09/03/17 07:00 97 H 28 H 97 09/03/17 06:25 101 H 28 H 101/47 L 100 09/03/17 06:00 104 H 100 Intake and Output (Last 8hrs): Intake & Output 09/02/17 09/03/17 09/03/17 22:59 06:59 14:59 Intake Total 570 420 80 Output Total 220 210 60 Balance 350 210 20 Weight 137 lb 3 oz Intake: Intake, IV Amount 200 100 Left Medial Port Internal 200 100 Jugular Tube Feeding 320 320 80 Other 50 Output: Urine 220 210 60 Urine, Voided 220 210 60 Other: # Bowel Movements 0 1 - Physical Exam Head: Positive for: Atraumatic, Normocephalic Pupils: Positive for: PERRL Mouth: Negative for: Moist Mucous Membranes Respiratory/Chest: Positive for: Clear to Auscultation, Decreased Breath Sounds (RUL ), Other (Intubated) Cardiovascular: Positive for: Normal S1, S2. Negative for: Tachycardic Abdomen: Positive for: Normal Bowel Sounds. Negative for: Distention Neurological: Negative for: GCS=15 (10T) Psychiatric: Negative for: Alert - Medications Active Medications: Active Medications Generic Name Dose Route Start Last Admin Trade Name Freq PRN Reason Stop Dose Admin Acetaminophen 650 mg 08/25/17 17:20 08/31/17 22:49 Tylenol 650 Mg Supp OK 650 mg Q4 PRN Administration Fever >100.4 F Albuterol/Ipratropium 3 ml 08/28/17 08:00 09/03/17 07:44 Duoneb 3 Mg/0.5 Mg (3 Ml) Ud INH 3 ml RQ6 AMY Administration Amantadine HCl 100 mg 09/03/17 10:00 09/03/17 09:01 Symmetrel PO 100 mg DAILY AMY Administration Bisacodyl 10 mg 08/29/17 08:30 Dulcolax OK ONCE PRN consipation Carbamazepine 100 mg 08/24/17 22:00 09/03/17 05:36 Tegretol PEG 100 mg Q8 AMY Administration Enoxaparin Sodium 40 mg 08/24/17 18:00 09/01/17 09:31 Lovenox SC 40 mg DAILY AMY Administration Metronidazole 500 mg in 100 mls @ 100 mls/hr 08/31/17 14:00 09/03/17 05:34 Flagyl IVPB 100 mls/hr Q8 AMY Administration Protocol Micafungin Sodium 100 mg/ 100 mls @ 100 mls/hr 09/01/17 16:00 09/02/17 15:12 Sodium Chloride IV 100 mls/hr Q24H AMY Administration Protocol Lorazepam 1 mg 09/03/17 01:11 Ativan IVP Q4H PRN Anxiety Moxifloxacin HCl 400 mg 09/01/17 15:00 09/02/17 15:07 Avelox PO 400 mg Q24H AMY Administration Pantoprazole Sodium 40 mg 08/29/17 10:00 09/02/17 09:58 Protonix Susp PO 40 mg DAILY AMY Administration Rosuvastatin Calcium 5 mg 08/24/17 22:00 09/02/17 21:53 Crestor PO 5 mg HS AMY Administration Valproate Sodium 250 mg 09/02/17 22:00 09/03/17 09:01 Depakene Oral Soln PEG 250 mg Q12 AMY Administration - Patient Studies Lab Studies: Microbiology Studies 09/02/17 14:09 Fungal Culture - Preliminary Bronchial Washings 08/31/17 11:00 Gram Stain - Final Sputum Sputum Culture - Final NORMAL ORAL MELISSA 08/31/17 10:00 Blood Culture - Preliminary Blood NO GROWTH AFTER 48 HOURS 08/31/17 10:30 Blood Culture - Preliminary Blood NO GROWTH AFTER 48 HOURS Lab Studies 09/03/17 09/03/17 09/03/17 Range/Units 06:23 06:23 05:28 WBC 10.0 (4.8-10.8) K/uL RBC 3.12 L (4.40-5.90) Mil/uL Hgb 8.8 L (12.0-18.0) g/dL Hct 26.2 L (35.0-51.0) % MCV 84.2 (80.0-94.0) fL MCH 28.2 (27.0-31.0) pg MCHC 33.6 (33.0-37.0) g/dL RDW 17.4 H (11.5-14.5) % Plt Count 249 (130-400) K/uL MPV 7.9 (7.2-11.7) fL Neut % (Auto) 71.3 (50.0-75.0) % Lymph % (Auto) 12.4 L (20.0-40.0) % [place] % (Auto) 15.3 H (0.0-10.0) % Eos % (Auto) 0.5 (0.0-4.0) % Baso % (Auto) 0.5 (0.0-2.0) % Neut # (Auto) 7.1 H (1.8-7.0) K/uL Lymph # (Auto) 1.2 (1.0-4.3) K/uL [place] # (Auto) 1.5 H (0.0-0.8) K/uL Eos # (Auto) 0.0 (0.0-0.7) K/uL Baso # (Auto) 0.1 (0.0-0.2) K/uL Puncture Site pCO2 (35-45) mm/Hg pO2 (80-100) mm/Hg HCO3 (21-28) mmol/L ABG pH (7.35-7.45) ABG Total CO2 (22-28) mmol/L ABG O2 Saturation (95-98) % ABG Base Excess (-2.0-3.0) mmol/L ABG Hemoglobin (11.7-17.4) g/dL ABG Carboxyhemoglobin (0.5-1.5) % POC ABG HHb (Measured) (0.0-5.0) % ABG Methemoglobin (0.0-3.0) % Collin Test A-a O2 Difference mm/Hg Respiratory Index Hgb O2 Saturation (95.0-98.0) % Vent Mode Mechanical Rate FiO2 % Tidal Volume PEEP Sodium 151 H (132-148) mmol/L Potassium 3.7 (3.6-5.2) mmol/L Chloride 119 H (98-107) mmol/L Carbon Dioxide 20 L (22-30) mmol/L Anion Gap 16 (10-20) BUN 11 (9-20) mg/dL Creatinine 0.7 L (0.8-1.5) mg/dL Est GFR ( Amer) > 60 Est GFR (Non-Af Amer) > 60 POC Glucose (mg/dL) 103 (65-110) mg/dL Random Glucose 90 (75-110) mg/dL Calcium 7.3 L (8.6-10.4) mg/dl Phosphorus 3.1 (2.5-4.5) mg/dL Magnesium 2.0 (1.6-2.3) mg/dL Total Bilirubin 3.4 H (0.2-1.3) mg/dL AST 24 (17-59) U/L ALT 7 L (21-72) U/L Alkaline Phosphatase 66 (38-126) U/L Total Protein 6.0 L (6.3-8.3) g/dL Albumin 2.0 L (3.5-5.0) g/dL Globulin 3.9 (2.2-3.9) gm/dL Albumin/Globulin Ratio 0.5 L (1.0-2.1) Procalcitonin (0.19-0.49) NG/ML Stool Occult Blood (NEGATIVE) Blood Type Antibody Screen 09/03/17 09/03/17 09/02/17 Range/Units 05:27 00:42 23:31 WBC (4.8-10.8) K/uL RBC (4.40-5.90) Mil/uL Hgb (12.0-18.0) g/dL Hct (35.0-51.0) % MCV (80.0-94.0) fL MCH (27.0-31.0) pg MCHC (33.0-37.0) g/dL RDW (11.5-14.5) % Plt Count (130-400) K/uL MPV (7.2-11.7) fL Neut % (Auto) (50.0-75.0) % Lymph % (Auto) (20.0-40.0) % [place] % (Auto) (0.0-10.0) % Eos % (Auto) (0.0-4.0) % Baso % (Auto) (0.0-2.0) % Neut # (Auto) (1.8-7.0) K/uL Lymph # (Auto) (1.0-4.3) K/uL [place] # (Auto) (0.0-0.8) K/uL Eos # (Auto) (0.0-0.7) K/uL Baso # (Auto) (0.0-0.2) K/uL Puncture Site Rr pCO2 31 L (35-45) mm/Hg pO2 93 (80-100) mm/Hg HCO3 21.5 (21-28) mmol/L ABG pH 7.41 (7.35-7.45) ABG Total CO2 20.6 L (22-28) mmol/L ABG O2 Saturation 99.1 H (95-98) % ABG Base Excess -4.4 L (-2.0-3.0) mmol/L ABG Hemoglobin 8.7 L (11.7-17.4) g/dL ABG Carboxyhemoglobin 1.8 H (0.5-1.5) % POC ABG HHb (Measured) 0.9 (0.0-5.0) % ABG Methemoglobin 0.9 (0.0-3.0) % Collin Test Pos A-a O2 Difference 153.0 mm/Hg Respiratory Index 1.6 Hgb O2 Saturation 96.4 (95.0-98.0) % Vent Mode Prvc Mechanical Rate 18 FiO2 40.0 % Tidal Volume 400 PEEP 5 Sodium (132-148) mmol/L Potassium (3.6-5.2) mmol/L Chloride (98-107) mmol/L Carbon Dioxide (22-30) mmol/L Anion Gap (10-20) BUN (9-20) mg/dL Creatinine (0.8-1.5) mg/dL Est GFR ( Amer) Est GFR (Non-Af Amer) POC Glucose (mg/dL) 133 H 69 (65-110) mg/dL Random Glucose (75-110) mg/dL Calcium (8.6-10.4) mg/dl Phosphorus (2.5-4.5) mg/dL Magnesium (1.6-2.3) mg/dL Total Bilirubin (0.2-1.3) mg/dL AST (17-59) U/L ALT (21-72) U/L Alkaline Phosphatase (38-126) U/L Total Protein (6.3-8.3) g/dL Albumin (3.5-5.0) g/dL Globulin (2.2-3.9) gm/dL Albumin/Globulin Ratio (1.0-2.1) Procalcitonin (0.19-0.49) NG/ML Stool Occult Blood (NEGATIVE) Blood Type Antibody Screen 09/02/17 09/02/17 09/02/17 Range/Units 23:29 18:27 17:37 WBC (4.8-10.8) K/uL RBC (4.40-5.90) Mil/uL Hgb (12.0-18.0) g/dL Hct (35.0-51.0) % MCV (80.0-94.0) fL MCH (27.0-31.0) pg MCHC (33.0-37.0) g/dL RDW (11.5-14.5) % Plt Count (130-400) K/uL MPV (7.2-11.7) fL Neut % (Auto) (50.0-75.0) % Lymph % (Auto) (20.0-40.0) % [place] % (Auto) (0.0-10.0) % Eos % (Auto) (0.0-4.0) % Baso % (Auto) (0.0-2.0) % Neut # (Auto) (1.8-7.0) K/uL Lymph # (Auto) (1.0-4.3) K/uL [place] # (Auto) (0.0-0.8) K/uL Eos # (Auto) (0.0-0.7) K/uL Baso # (Auto) (0.0-0.2) K/uL Puncture Site pCO2 (35-45) mm/Hg pO2 (80-100) mm/Hg HCO3 (21-28) mmol/L ABG pH (7.35-7.45) ABG Total CO2 (22-28) mmol/L ABG O2 Saturation (95-98) % ABG Base Excess (-2.0-3.0) mmol/L ABG Hemoglobin (11.7-17.4) g/dL ABG Carboxyhemoglobin (0.5-1.5) % POC ABG HHb (Measured) (0.0-5.0) % ABG Methemoglobin (0.0-3.0) % Collin Test A-a O2 Difference mm/Hg Respiratory Index Hgb O2 Saturation (95.0-98.0) % Vent Mode Mechanical Rate FiO2 % Tidal Volume PEEP Sodium (132-148) mmol/L Potassium (3.6-5.2) mmol/L Chloride (98-107) mmol/L Carbon Dioxide (22-30) mmol/L Anion Gap (10-20) BUN (9-20) mg/dL Creatinine (0.8-1.5) mg/dL Est GFR ( Amer) Est GFR (Non-Af Amer) POC Glucose (mg/dL) 68 134 H 63 L (65-110) mg/dL Random Glucose (75-110) mg/dL Calcium (8.6-10.4) mg/dl Phosphorus (2.5-4.5) mg/dL Magnesium (1.6-2.3) mg/dL Total Bilirubin (0.2-1.3) mg/dL AST (17-59) U/L ALT (21-72) U/L Alkaline Phosphatase (38-126) U/L Total Protein (6.3-8.3) g/dL Albumin (3.5-5.0) g/dL Globulin (2.2-3.9) gm/dL Albumin/Globulin Ratio (1.0-2.1) Procalcitonin (0.19-0.49) NG/ML Stool Occult Blood (NEGATIVE) Blood Type Antibody Screen 09/02/17 09/02/17 09/02/17 Range/Units 17:36 15:41 15:41 WBC (4.8-10.8) K/uL RBC (4.40-5.90) Mil/uL Hgb (12.0-18.0) g/dL Hct (35.0-51.0) % MCV (80.0-94.0) fL MCH (27.0-31.0) pg MCHC (33.0-37.0) g/dL RDW (11.5-14.5) % Plt Count (130-400) K/uL MPV (7.2-11.7) fL Neut % (Auto) (50.0-75.0) % Lymph % (Auto) (20.0-40.0) % [place] % (Auto) (0.0-10.0) % Eos % (Auto) (0.0-4.0) % Baso % (Auto) (0.0-2.0) % Neut # (Auto) (1.8-7.0) K/uL Lymph # (Auto) (1.0-4.3) K/uL [place] # (Auto) (0.0-0.8) K/uL Eos # (Auto) (0.0-0.7) K/uL Baso # (Auto) (0.0-0.2) K/uL Puncture Site pCO2 (35-45) mm/Hg pO2 (80-100) mm/Hg HCO3 (21-28) mmol/L ABG pH (7.35-7.45) ABG Total CO2 (22-28) mmol/L ABG O2 Saturation (95-98) % ABG Base Excess (-2.0-3.0) mmol/L ABG Hemoglobin (11.7-17.4) g/dL ABG Carboxyhemoglobin (0.5-1.5) % POC ABG HHb (Measured) (0.0-5.0) % ABG Methemoglobin (0.0-3.0) % Collin Test A-a O2 Difference mm/Hg Respiratory Index Hgb O2 Saturation (95.0-98.0) % Vent Mode Mechanical Rate FiO2 % Tidal Volume PEEP Sodium (132-148) mmol/L Potassium (3.6-5.2) mmol/L Chloride (98-107) mmol/L Carbon Dioxide (22-30) mmol/L Anion Gap (10-20) BUN (9-20) mg/dL Creatinine (0.8-1.5) mg/dL Est GFR ( Amer) Est GFR (Non-Af Amer) POC Glucose (mg/dL) 59 L (65-110) mg/dL Random Glucose (75-110) mg/dL Calcium (8.6-10.4) mg/dl Phosphorus (2.5-4.5) mg/dL Magnesium (1.6-2.3) mg/dL Total Bilirubin (0.2-1.3) mg/dL AST (17-59) U/L ALT (21-72) U/L Alkaline Phosphatase (38-126) U/L Total Protein (6.3-8.3) g/dL Albumin (3.5-5.0) g/dL Globulin (2.2-3.9) gm/dL Albumin/Globulin Ratio (1.0-2.1) Procalcitonin 4.19 H (0.19-0.49) NG/ML Stool Occult Blood Negative (NEGATIVE) Blood Type Antibody Screen 09/02/17 09/02/17 Range/Units 11:29 09:54 WBC (4.8-10.8) K/uL RBC (4.40-5.90) Mil/uL Hgb (12.0-18.0) g/dL Hct (35.0-51.0) % MCV (80.0-94.0) fL MCH (27.0-31.0) pg MCHC (33.0-37.0) g/dL RDW (11.5-14.5) % Plt Count (130-400) K/uL MPV (7.2-11.7) fL Neut % (Auto) (50.0-75.0) % Lymph % (Auto) (20.0-40.0) % [place] % (Auto) (0.0-10.0) % Eos % (Auto) (0.0-4.0) % Baso % (Auto) (0.0-2.0) % Neut # (Auto) (1.8-7.0) K/uL Lymph # (Auto) (1.0-4.3) K/uL [place] # (Auto) (0.0-0.8) K/uL Eos # (Auto) (0.0-0.7) K/uL Baso # (Auto) (0.0-0.2) K/uL Puncture Site pCO2 (35-45) mm/Hg pO2 (80-100) mm/Hg HCO3 (21-28) mmol/L ABG pH (7.35-7.45) ABG Total CO2 (22-28) mmol/L ABG O2 Saturation (95-98) % ABG Base Excess (-2.0-3.0) mmol/L ABG Hemoglobin (11.7-17.4) g/dL ABG Carboxyhemoglobin (0.5-1.5) % POC ABG HHb (Measured) (0.0-5.0) % ABG Methemoglobin (0.0-3.0) % Collin Test A-a O2 Difference mm/Hg Respiratory Index Hgb O2 Saturation (95.0-98.0) % Vent Mode Mechanical Rate FiO2 % Tidal Volume PEEP Sodium (132-148) mmol/L Potassium (3.6-5.2) mmol/L Chloride (98-107) mmol/L Carbon Dioxide (22-30) mmol/L Anion Gap (10-20) BUN (9-20) mg/dL Creatinine (0.8-1.5) mg/dL Est GFR ( Amer) Est GFR (Non-Af Amer) POC Glucose (mg/dL) 73 (65-110) mg/dL Random Glucose (75-110) mg/dL Calcium (8.6-10.4) mg/dl Phosphorus (2.5-4.5) mg/dL Magnesium (1.6-2.3) mg/dL Total Bilirubin (0.2-1.3) mg/dL AST (17-59) U/L ALT (21-72) U/L Alkaline Phosphatase (38-126) U/L Total Protein (6.3-8.3) g/dL Albumin (3.5-5.0) g/dL Globulin (2.2-3.9) gm/dL Albumin/Globulin Ratio (1.0-2.1) Procalcitonin (0.19-0.49) NG/ML Stool Occult Blood (NEGATIVE) Blood Type O POSITIVE Antibody Screen Negative Laboratory Results - last 24 hr 09/02/17 09/02/17 09/02/17 09:54 11:29 15:41 WBC RBC Hgb Hct MCV MCH MCHC RDW Plt Count MPV Neut % (Auto) Lymph % (Auto) [place] % (Auto) Eos % (Auto) Baso % (Auto) Neut # (Auto) Lymph # (Auto) [place] # (Auto) Eos # (Auto) Baso # (Auto) Puncture Site pCO2 pO2 HCO3 ABG pH ABG Total CO2 ABG O2 Saturation ABG Base Excess ABG Hemoglobin ABG Carboxyhemoglobin POC ABG HHb (Measured) ABG Methemoglobin Collin Test A-a O2 Difference Respiratory Index Hgb O2 Saturation Vent Mode Mechanical Rate FiO2 Tidal Volume PEEP Sodium Potassium Chloride Carbon Dioxide Anion Gap BUN Creatinine Est GFR ( Amer) Est GFR (Non-Af Amer) POC Glucose (mg/dL) 73 Random Glucose Calcium Phosphorus Magnesium Total Bilirubin AST ALT Alkaline Phosphatase Total Protein Albumin Globulin Albumin/Globulin Ratio Procalcitonin Stool Occult Blood Negative Blood Type O POSITIVE Antibody Screen Negative 09/02/17 09/02/17 09/02/17 15:41 17:36 17:37 WBC RBC Hgb Hct MCV MCH MCHC RDW Plt Count MPV Neut % (Auto) Lymph % (Auto) [place] % (Auto) Eos % (Auto) Baso % (Auto) Neut # (Auto) Lymph # (Auto) [place] # (Auto) Eos # (Auto) Baso # (Auto) Puncture Site pCO2 pO2 HCO3 ABG pH ABG Total CO2 ABG O2 Saturation ABG Base Excess ABG Hemoglobin ABG Carboxyhemoglobin POC ABG HHb (Measured) ABG Methemoglobin Collin Test A-a O2 Difference Respiratory Index Hgb O2 Saturation Vent Mode Mechanical Rate FiO2 Tidal Volume PEEP Sodium Potassium Chloride Carbon Dioxide Anion Gap BUN Creatinine Est GFR ( Amer) Est GFR (Non-Af Amer) POC Glucose (mg/dL) 59 L 63 L Random Glucose Calcium Phosphorus Magnesium Total Bilirubin AST ALT Alkaline Phosphatase Total Protein Albumin Globulin Albumin/Globulin Ratio Procalcitonin 4.19 H Stool Occult Blood Blood Type Antibody Screen 09/02/17 09/02/17 09/02/17 18:27 23:29 23:31 WBC RBC Hgb Hct MCV MCH MCHC RDW Plt Count MPV Neut % (Auto) Lymph % (Auto) [place] % (Auto) Eos % (Auto) Baso % (Auto) Neut # (Auto) Lymph # (Auto) [place] # (Auto) Eos # (Auto) Baso # (Auto) Puncture Site pCO2 pO2 HCO3 ABG pH ABG Total CO2 ABG O2 Saturation ABG Base Excess ABG Hemoglobin ABG Carboxyhemoglobin POC ABG HHb (Measured) ABG Methemoglobin Collin Test A-a O2 Difference Respiratory Index Hgb O2 Saturation Vent Mode Mechanical Rate FiO2 Tidal Volume PEEP Sodium Potassium Chloride Carbon Dioxide Anion Gap BUN Creatinine Est GFR ( Amer) Est GFR (Non-Af Amer) POC Glucose (mg/dL) 134 H 68 69 Random Glucose Calcium Phosphorus Magnesium Total Bilirubin AST ALT Alkaline Phosphatase Total Protein Albumin Globulin Albumin/Globulin Ratio Procalcitonin Stool Occult Blood Blood Type Antibody Screen 09/03/17 09/03/17 09/03/17 00:42 05:27 05:28 WBC RBC Hgb Hct MCV MCH MCHC RDW Plt Count MPV Neut % (Auto) Lymph % (Auto) [place] % (Auto) Eos % (Auto) Baso % (Auto) Neut # (Auto) Lymph # (Auto) [place] # (Auto) Eos # (Auto) Baso # (Auto) Puncture Site Rr pCO2 31 L pO2 93 HCO3 21.5 ABG pH 7.41 ABG Total CO2 20.6 L ABG O2 Saturation 99.1 H ABG Base Excess -4.4 L ABG Hemoglobin 8.7 L ABG Carboxyhemoglobin 1.8 H POC ABG HHb (Measured) 0.9 ABG Methemoglobin 0.9 Collin Test Pos A-a O2 Difference 153.0 Respiratory Index 1.6 Hgb O2 Saturation 96.4 Vent Mode Prvc Mechanical Rate 18 FiO2 40.0 Tidal Volume 400 PEEP 5 Sodium Potassium Chloride Carbon Dioxide Anion Gap BUN Creatinine Est GFR ( Amer) Est GFR (Non-Af Amer) POC Glucose (mg/dL) 133 H 103 Random Glucose Calcium Phosphorus Magnesium Total Bilirubin AST ALT Alkaline Phosphatase Total Protein Albumin Globulin Albumin/Globulin Ratio Procalcitonin Stool Occult Blood Blood Type Antibody Screen 09/03/17 09/03/17 06:23 06:23 WBC 10.0 RBC 3.12 L Hgb 8.8 L Hct 26.2 L MCV 84.2 MCH 28.2 MCHC 33.6 RDW 17.4 H Plt Count 249 MPV 7.9 Neut % (Auto) 71.3 Lymph % (Auto) 12.4 L [place] % (Auto) 15.3 H Eos % (Auto) 0.5 Baso % (Auto) 0.5 Neut # (Auto) 7.1 H Lymph # (Auto) 1.2 [place] # (Auto) 1.5 H Eos # (Auto) 0.0 Baso # (Auto) 0.1 Puncture Site pCO2 pO2 HCO3 ABG pH ABG Total CO2 ABG O2 Saturation ABG Base Excess ABG Hemoglobin ABG Carboxyhemoglobin POC ABG HHb (Measured) ABG Methemoglobin Collin Test A-a O2 Difference Respiratory Index Hgb O2 Saturation Vent Mode Mechanical Rate FiO2 Tidal Volume PEEP Sodium 151 H Potassium 3.7 Chloride 119 H Carbon Dioxide 20 L Anion Gap 16 BUN 11 Creatinine 0.7 L Est GFR ( Amer) > 60 Est GFR (Non-Af Amer) > 60 POC Glucose (mg/dL) Random Glucose 90 Calcium 7.3 L Phosphorus 3.1 Magnesium 2.0 Total Bilirubin 3.4 H AST 24 ALT 7 L Alkaline Phosphatase 66 Total Protein 6.0 L Albumin 2.0 L Globulin 3.9 Albumin/Globulin Ratio 0.5 L Procalcitonin Stool Occult Blood Blood Type Antibody Screen Fingerstick Blood Sugar Results: 103 Review of Systems - Review of Systems Systems not reviewed;Unavailable: Intubated Assessment/Plan - Assessment and Plan (Free Text) Assessment: 77 year old male with PMHx of Arthritis, Asthma, COPD, Severe Dementia, HTN, Pneumonia, Seizures, TIA, and 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 Code Sepsis called in ED. Patient admitted to ICU for evaluation and treatment of SEPSIS. Patient began desating requiring emergent intubation. 08/27: Mycoplasma PNA IgM - POSITIVE Plan: Neuro: GCS: 10T Sedation: None A: Severe Dementia, Hx of Seizure Home Carbamazepine 100mg Q8 | Home Valproic Acid 250mg PEG QID Changed to Q12H Amantadine 100mg PO Daily per Neuro Cardio: A: HTN, Hx of TIA, Hypotension,HLD Crestor 5mg PO HS Pulm: A: Hypoxic Res. Failure, Asthma, COPD, Mycoplasma Pneumonia CXR (Admission): Stable postsurgical changes in the right lung with low lung volume and shift of mediastinal to the right. No acute findings. ABG (Adm): 7.4//326/21.6 ABG ( 08/27): 7.41//115/19.8 ABG (08/31): 7.42//91/21.6 ABG (09/01): 7.41//76/21.5 ABG (09/02): 7.38/33/93/21 DuoNebs Schedule Wean Fi02 as tolerated Daily CPAP trials. CXR (09/03): No significant interval change in right upper lobe cystic changes/ bulla and right pleural effusion. Stable position of endotracheal tube. Endo A: Hypoglycemia (Stable) GI: A: Enterocolitis CT chest Abd/Pelvis (08/27): Enterocolits; ascities;mild bladder wall thickening with air in the bladder, iatrogenic versus infectious. Started on Flagyl Today. Renal: A: Hypocalcemia (stable), Hypokalemia (Resolved) Replace electrolytes PRN Heme/Onc: A: Normocytic Anemia HgB stable at 8.8 today s/p 1 unit yesterday. 1 Unit PRBC Received yesterday Stool Occult Blood - NEGATIVE ID A: Code Sepsis, Leukocytosis (Resolved) Afebrile Cultures (08/31) Blood - NEGATIVE | Urine - NEGATIVE | Sputum - Normal Oral Melissa. Blood Cultures - NEGATIVE for 3 days. Urine Cultures - NEGATIVE Wound Cultures - Coagulase Neg Staph, Likely normal Skin Melissa MRSA - NEGATIVE Mycoplasma Pneumonia IgM - POSITIVE,Patient has chronic Mycoplasma IgM. This was positive on 08/03/17 Antibiotics: Moxifloxacin 400mg Q24H, Micafungin 100mg Q24H, Flagyl 500mg Q8H ID on Consult, Recs Appreciated. AFB Sputum Culture, Aspergillus AB and Antigen, H. Galactomannan Antigen, Histoplasma AB, Quant Gold - PENDING Integumentary A: Left Lower ext wounds Wound Care. Proph Protonix Lovenox (Held) due to Drop in HgB Diet: Tube Feeding - Jevity 1.5 Lines: Right IJ Central Line Patient discussed with ICU Attending Niraj Negrete, PGY-1 <Giovanni Washington S - Last Filed: 09/03/17 16:42> CCU Objective - Vital Signs / Intake & Output Vital Signs (Last 4 hours): Vital Signs Temp Pulse Resp BP Pulse Ox 09/03/17 16:00 98.1 F 96 09/03/17 15:17 105 H 15 94/53 L 99 09/03/17 14:17 110 H 21 105/62 99 09/03/17 13:17 107 H 19 108/72 98 Intake and Output (Last 8hrs): Intake & Output 09/03/17 09/03/17 09/03/17 06:59 14:59 22:59 Intake Total 420 420 180 Output Total 210 225 60 Balance 210 195 120 Weight 137 lb 3 oz Intake: Intake, IV Amount 100 100 100 Left Medial Port Internal 100 100 100 Jugular Tube Feeding 320 320 80 Output: Urine 210 225 60 Urine, Voided 210 225 60 Other: # Bowel Movements 1 0 - Medications Active Medications: Active Medications Generic Name Dose Route Start Last Admin Trade Name Freq PRN Reason Stop Dose Admin Acetaminophen 650 mg 08/25/17 17:20 08/31/17 22:49 Tylenol 650 Mg Supp OK 650 mg Q4 PRN Administration Fever >100.4 F Albuterol/Ipratropium 3 ml 08/28/17 08:00 09/03/17 13:35 Duoneb 3 Mg/0.5 Mg (3 Ml) Ud INH 3 ml RQ6 AMY Administration Amantadine HCl 100 mg 09/03/17 10:00 09/03/17 09:01 Symmetrel PO 100 mg DAILY AMY Administration Bisacodyl 10 mg 08/29/17 08:30 Dulcolax OK ONCE PRN consipation Carbamazepine 100 mg 08/24/17 22:00 09/03/17 14:23 Tegretol PEG 100 mg Q8 AMY Administration Enoxaparin Sodium 40 mg 08/24/17 18:00 09/01/17 09:31 Lovenox SC 40 mg DAILY AMY Administration Metronidazole 500 mg in 100 mls @ 100 mls/hr 08/31/17 14:00 09/03/17 14:18 Flagyl IVPB 100 mls/hr Q8 AMY Administration Protocol Micafungin Sodium 100 mg/ 100 mls @ 100 mls/hr 09/01/17 16:00 09/03/17 15:39 Sodium Chloride IV 100 mls/hr Q24H AMY Administration Protocol Lorazepam 1 mg 09/03/17 01:11 09/03/17 10:41 Ativan IVP 1 mg Q4H PRN Administration Anxiety Moxifloxacin HCl 400 mg 09/01/17 15:00 09/03/17 14:32 Avelox PO 400 mg Q24H AMY Administration Pantoprazole Sodium 40 mg 08/29/17 10:00 09/03/17 10:41 Protonix Susp PO 40 mg DAILY AMY Administration Rosuvastatin Calcium 5 mg 08/24/17 22:00 09/02/17 21:53 Crestor PO 5 mg HS AMY Administration Valproate Sodium 250 mg 09/02/17 22:00 09/03/17 09:01 Depakene Oral Soln PEG 250 mg Q12 AMY Administration - Patient Studies Lab Studies: Microbiology Studies 09/02/17 07:46 Mycobacterial Culture - Preliminary Other: Please Indicate 08/31/17 10:00 Blood Culture - Preliminary Blood NO GROWTH AFTER 3 DAYS 08/31/17 10:30 Blood Culture - Preliminary Blood NO GROWTH AFTER 3 DAYS 09/02/17 14:09 Fungal Culture - Preliminary Bronchial Washings Lab Studies 09/03/17 09/03/17 09/03/17 Range/Units 11:43 06:23 06:23 WBC 10.0 (4.8-10.8) K/uL RBC 3.12 L (4.40-5.90) Mil/uL Hgb 8.8 L (12.0-18.0) g/dL Hct 26.2 L (35.0-51.0) % MCV 84.2 (80.0-94.0) fL MCH 28.2 (27.0-31.0) pg MCHC 33.6 (33.0-37.0) g/dL RDW 17.4 H (11.5-14.5) % Plt Count 249 (130-400) K/uL MPV 7.9 (7.2-11.7) fL Neut % (Auto) 71.3 (50.0-75.0) % Lymph % (Auto) 12.4 L (20.0-40.0) % [place] % (Auto) 15.3 H (0.0-10.0) % Eos % (Auto) 0.5 (0.0-4.0) % Baso % (Auto) 0.5 (0.0-2.0) % Neut # (Auto) 7.1 H (1.8-7.0) K/uL Lymph # (Auto) 1.2 (1.0-4.3) K/uL [place] # (Auto) 1.5 H (0.0-0.8) K/uL Eos # (Auto) 0.0 (0.0-0.7) K/uL Baso # (Auto) 0.1 (0.0-0.2) K/uL Puncture Site pCO2 (35-45) mm/Hg pO2 (80-100) mm/Hg HCO3 (21-28) mmol/L ABG pH (7.35-7.45) ABG Total CO2 (22-28) mmol/L ABG O2 Saturation (95-98) % ABG Base Excess (-2.0-3.0) mmol/L ABG Hemoglobin (11.7-17.4) g/dL ABG Carboxyhemoglobin (0.5-1.5) % POC ABG HHb (Measured) (0.0-5.0) % ABG Methemoglobin (0.0-3.0) % [place]lin Test A-a O2 Difference mm/Hg Respiratory Index Hgb O2 Saturation (95.0-98.0) % Vent Mode Mechanical Rate FiO2 % Tidal Volume PEEP Sodium 151 H (132-148) mmol/L Potassium 3.7 (3.6-5.2) mmol/L Chloride 119 H (98-107) mmol/L Carbon Dioxide 20 L (22-30) mmol/L Anion Gap 16 (10-20) BUN 11 (9-20) mg/dL Creatinine 0.7 L (0.8-1.5) mg/dL Est GFR ( Amer) > 60 Est GFR (Non-Af Amer) > 60 POC Glucose (mg/dL) 105 (65-110) mg/dL Random Glucose 90 (75-110) mg/dL Calcium 7.3 L (8.6-10.4) mg/dl Phosphorus 3.1 (2.5-4.5) mg/dL Magnesium 2.0 (1.6-2.3) mg/dL Total Bilirubin 3.4 H (0.2-1.3) mg/dL AST 24 (17-59) U/L ALT 7 L (21-72) U/L Alkaline Phosphatase 66 (38-126) U/L Total Protein 6.0 L (6.3-8.3) g/dL Albumin 2.0 L (3.5-5.0) g/dL Globulin 3.9 (2.2-3.9) gm/dL Albumin/Globulin Ratio 0.5 L (1.0-2.1) Procalcitonin (0.19-0.49) NG/ML 09/03/17 09/03/17 09/03/17 Range/Units 05:28 05:27 00:42 WBC (4.8-10.8) K/uL RBC (4.40-5.90) Mil/uL Hgb (12.0-18.0) g/dL Hct (35.0-51.0) % MCV (80.0-94.0) fL MCH (27.0-31.0) pg MCHC (33.0-37.0) g/dL RDW (11.5-14.5) % Plt Count (130-400) K/uL MPV (7.2-11.7) fL Neut % (Auto) (50.0-75.0) % Lymph % (Auto) (20.0-40.0) % [place] % (Auto) (0.0-10.0) % Eos % (Auto) (0.0-4.0) % Baso % (Auto) (0.0-2.0) % Neut # (Auto) (1.8-7.0) K/uL Lymph # (Auto) (1.0-4.3) K/uL [place] # (Auto) (0.0-0.8) K/uL Eos # (Auto) (0.0-0.7) K/uL Baso # (Auto) (0.0-0.2) K/uL Puncture Site Rr pCO2 31 L (35-45) mm/Hg pO2 93 (80-100) mm/Hg HCO3 21.5 (21-28) mmol/L ABG pH 7.41 (7.35-7.45) ABG Total CO2 20.6 L (22-28) mmol/L ABG O2 Saturation 99.1 H (95-98) % ABG Base Excess -4.4 L (-2.0-3.0) mmol/L ABG Hemoglobin 8.7 L (11.7-17.4) g/dL ABG Carboxyhemoglobin 1.8 H (0.5-1.5) % POC ABG HHb (Measured) 0.9 (0.0-5.0) % ABG Methemoglobin 0.9 (0.0-3.0) % Collin Test Pos A-a O2 Difference 153.0 mm/Hg Respiratory Index 1.6 Hgb O2 Saturation 96.4 (95.0-98.0) % Vent Mode Prvc Mechanical Rate 18 FiO2 40.0 % Tidal Volume 400 PEEP 5 Sodium (132-148) mmol/L Potassium (3.6-5.2) mmol/L Chloride (98-107) mmol/L Carbon Dioxide (22-30) mmol/L Anion Gap (10-20) BUN (9-20) mg/dL Creatinine (0.8-1.5) mg/dL Est GFR ( Amer) Est GFR (Non-Af Amer) POC Glucose (mg/dL) 103 133 H (65-110) mg/dL Random Glucose (75-110) mg/dL Calcium (8.6-10.4) mg/dl Phosphorus (2.5-4.5) mg/dL Magnesium (1.6-2.3) mg/dL Total Bilirubin (0.2-1.3) mg/dL AST (17-59) U/L ALT (21-72) U/L Alkaline Phosphatase (38-126) U/L Total Protein (6.3-8.3) g/dL Albumin (3.5-5.0) g/dL Globulin (2.2-3.9) gm/dL Albumin/Globulin Ratio (1.0-2.1) Procalcitonin (0.19-0.49) NG/ML 09/02/17 09/02/17 09/02/17 Range/Units 23:31 23:29 18:27 WBC (4.8-10.8) K/uL RBC (4.40-5.90) Mil/uL Hgb (12.0-18.0) g/dL Hct (35.0-51.0) % MCV (80.0-94.0) fL MCH (27.0-31.0) pg MCHC (33.0-37.0) g/dL RDW (11.5-14.5) % Plt Count (130-400) K/uL MPV (7.2-11.7) fL Neut % (Auto) (50.0-75.0) % Lymph % (Auto) (20.0-40.0) % [place] % (Auto) (0.0-10.0) % Eos % (Auto) (0.0-4.0) % Baso % (Auto) (0.0-2.0) % Neut # (Auto) (1.8-7.0) K/uL Lymph # (Auto) (1.0-4.3) K/uL [place] # (Auto) (0.0-0.8) K/uL Eos # (Auto) (0.0-0.7) K/uL Baso # (Auto) (0.0-0.2) K/uL Puncture Site pCO2 (35-45) mm/Hg pO2 (80-100) mm/Hg HCO3 (21-28) mmol/L ABG pH (7.35-7.45) ABG Total CO2 (22-28) mmol/L ABG O2 Saturation (95-98) % ABG Base Excess (-2.0-3.0) mmol/L ABG Hemoglobin (11.7-17.4) g/dL ABG Carboxyhemoglobin (0.5-1.5) % POC ABG HHb (Measured) (0.0-5.0) % ABG Methemoglobin (0.0-3.0) % Collin Test A-a O2 Difference mm/Hg Respiratory Index Hgb O2 Saturation (95.0-98.0) % Vent Mode Mechanical Rate FiO2 % Tidal Volume PEEP Sodium (132-148) mmol/L Potassium (3.6-5.2) mmol/L Chloride (98-107) mmol/L Carbon Dioxide (22-30) mmol/L Anion Gap (10-20) BUN (9-20) mg/dL Creatinine (0.8-1.5) mg/dL Est GFR ( Amer) Est GFR (Non-Af Amer) POC Glucose (mg/dL) 69 68 134 H (65-110) mg/dL Random Glucose (75-110) mg/dL Calcium (8.6-10.4) mg/dl Phosphorus (2.5-4.5) mg/dL Magnesium (1.6-2.3) mg/dL Total Bilirubin (0.2-1.3) mg/dL AST (17-59) U/L ALT (21-72) U/L Alkaline Phosphatase (38-126) U/L Total Protein (6.3-8.3) g/dL Albumin (3.5-5.0) g/dL Globulin (2.2-3.9) gm/dL Albumin/Globulin Ratio (1.0-2.1) Procalcitonin (0.19-0.49) NG/ML 09/02/17 09/02/17 09/02/17 Range/Units 17:37 17:36 15:41 WBC (4.8-10.8) K/uL RBC (4.40-5.90) Mil/uL Hgb (12.0-18.0) g/dL Hct (35.0-51.0) % MCV (80.0-94.0) fL MCH (27.0-31.0) pg MCHC (33.0-37.0) g/dL RDW (11.5-14.5) % Plt Count (130-400) K/uL MPV (7.2-11.7) fL Neut % (Auto) (50.0-75.0) % Lymph % (Auto) (20.0-40.0) % [place] % (Auto) (0.0-10.0) % Eos % (Auto) (0.0-4.0) % Baso % (Auto) (0.0-2.0) % Neut # (Auto) (1.8-7.0) K/uL Lymph # (Auto) (1.0-4.3) K/uL [place] # (Auto) (0.0-0.8) K/uL Eos # (Auto) (0.0-0.7) K/uL Baso # (Auto) (0.0-0.2) K/uL Puncture Site pCO2 (35-45) mm/Hg pO2 (80-100) mm/Hg HCO3 (21-28) mmol/L ABG pH (7.35-7.45) ABG Total CO2 (22-28) mmol/L ABG O2 Saturation (95-98) % ABG Base Excess (-2.0-3.0) mmol/L ABG Hemoglobin (11.7-17.4) g/dL ABG Carboxyhemoglobin (0.5-1.5) % POC ABG HHb (Measured) (0.0-5.0) % ABG Methemoglobin (0.0-3.0) % Collin Test A-a O2 Difference mm/Hg Respiratory Index Hgb O2 Saturation (95.0-98.0) % Vent Mode Mechanical Rate FiO2 % Tidal Volume PEEP Sodium (132-148) mmol/L Potassium (3.6-5.2) mmol/L Chloride (98-107) mmol/L Carbon Dioxide (22-30) mmol/L Anion Gap (10-20) BUN (9-20) mg/dL Creatinine (0.8-1.5) mg/dL Est GFR ( Amer) Est GFR (Non-Af Amer) POC Glucose (mg/dL) 63 L 59 L (65-110) mg/dL Random Glucose (75-110) mg/dL Calcium (8.6-10.4) mg/dl Phosphorus (2.5-4.5) mg/dL Magnesium (1.6-2.3) mg/dL Total Bilirubin (0.2-1.3) mg/dL AST (17-59) U/L ALT (21-72) U/L Alkaline Phosphatase (38-126) U/L Total Protein (6.3-8.3) g/dL Albumin (3.5-5.0) g/dL Globulin (2.2-3.9) gm/dL Albumin/Globulin Ratio (1.0-2.1) Procalcitonin 4.19 H (0.19-0.49) NG/ML Laboratory Results - last 24 hr 09/02/17 09/02/17 09/02/17 15:41 17:36 17:37 WBC RBC Hgb Hct MCV MCH MCHC RDW Plt Count MPV Neut % (Auto) Lymph % (Auto) [place] % (Auto) Eos % (Auto) Baso % (Auto) Neut # (Auto) Lymph # (Auto) [place] # (Auto) Eos # (Auto) Baso # (Auto) Puncture Site pCO2 pO2 HCO3 ABG pH ABG Total CO2 ABG O2 Saturation ABG Base Excess ABG Hemoglobin ABG Carboxyhemoglobin POC ABG HHb (Measured) ABG Methemoglobin Collin Test A-a O2 Difference Respiratory Index Hgb O2 Saturation Vent Mode Mechanical Rate FiO2 Tidal Volume PEEP Sodium Potassium Chloride Carbon Dioxide Anion Gap BUN Creatinine Est GFR ( Amer) Est GFR (Non-Af Amer) POC Glucose (mg/dL) 59 L 63 L Random Glucose Calcium Phosphorus Magnesium Total Bilirubin AST ALT Alkaline Phosphatase Total Protein Albumin Globulin Albumin/Globulin Ratio Procalcitonin 4.19 H 09/02/17 09/02/17 09/02/17 18:27 23:29 23:31 WBC RBC Hgb Hct MCV MCH MCHC RDW Plt Count MPV Neut % (Auto) Lymph % (Auto) [place] % (Auto) Eos % (Auto) Baso % (Auto) Neut # (Auto) Lymph # (Auto) [place] # (Auto) Eos # (Auto) Baso # (Auto) Puncture Site pCO2 pO2 HCO3 ABG pH ABG Total CO2 ABG O2 Saturation ABG Base Excess ABG Hemoglobin ABG Carboxyhemoglobin POC ABG HHb (Measured) ABG Methemoglobin Collin Test A-a O2 Difference Respiratory Index Hgb O2 Saturation Vent Mode Mechanical Rate FiO2 Tidal Volume PEEP Sodium Potassium Chloride Carbon Dioxide Anion Gap BUN Creatinine Est GFR ( Amer) Est GFR (Non-Af Amer) POC Glucose (mg/dL) 134 H 68 69 Random Glucose Calcium Phosphorus Magnesium Total Bilirubin AST ALT Alkaline Phosphatase Total Protein Albumin Globulin Albumin/Globulin Ratio Procalcitonin 09/03/17 09/03/17 09/03/17 00:42 05:27 05:28 WBC RBC Hgb Hct MCV MCH MCHC RDW Plt Count MPV Neut % (Auto) Lymph % (Auto) [place] % (Auto) Eos % (Auto) Baso % (Auto) Neut # (Auto) Lymph # (Auto) [place] # (Auto) Eos # (Auto) Baso # (Auto) Puncture Site Rr pCO2 31 L pO2 93 HCO3 21.5 ABG pH 7.41 ABG Total CO2 20.6 L ABG O2 Saturation 99.1 H ABG Base Excess -4.4 L ABG Hemoglobin 8.7 L ABG Carboxyhemoglobin 1.8 H POC ABG HHb (Measured) 0.9 ABG Methemoglobin 0.9 Collin Test Pos A-a O2 Difference 153.0 Respiratory Index 1.6 Hgb O2 Saturation 96.4 Vent Mode Prvc Mechanical Rate 18 FiO2 40.0 Tidal Volume 400 PEEP 5 Sodium Potassium Chloride Carbon Dioxide Anion Gap BUN Creatinine Est GFR ( Amer) Est GFR (Non-Af Amer) POC Glucose (mg/dL) 133 H 103 Random Glucose Calcium Phosphorus Magnesium Total Bilirubin AST ALT Alkaline Phosphatase Total Protein Albumin Globulin Albumin/Globulin Ratio Procalcitonin 09/03/17 09/03/17 09/03/17 06:23 06:23 11:43 WBC 10.0 RBC 3.12 L Hgb 8.8 L Hct 26.2 L MCV 84.2 MCH 28.2 MCHC 33.6 RDW 17.4 H Plt Count 249 MPV 7.9 Neut % (Auto) 71.3 Lymph % (Auto) 12.4 L [place] % (Auto) 15.3 H Eos % (Auto) 0.5 Baso % (Auto) 0.5 Neut # (Auto) 7.1 H Lymph # (Auto) 1.2 [place] # (Auto) 1.5 H Eos # (Auto) 0.0 Baso # (Auto) 0.1 Puncture Site pCO2 pO2 HCO3 ABG pH ABG Total CO2 ABG O2 Saturation ABG Base Excess ABG Hemoglobin ABG Carboxyhemoglobin POC ABG HHb (Measured) ABG Methemoglobin Collin Test A-a O2 Difference Respiratory Index Hgb O2 Saturation Vent Mode Mechanical Rate FiO2 Tidal Volume PEEP Sodium 151 H Potassium 3.7 Chloride 119 H Carbon Dioxide 20 L Anion Gap 16 BUN 11 Creatinine 0.7 L Est GFR ( Amer) > 60 Est GFR (Non-Af Amer) > 60 POC Glucose (mg/dL) 105 Random Glucose 90 Calcium 7.3 L Phosphorus 3.1 Magnesium 2.0 Total Bilirubin 3.4 H AST 24 ALT 7 L Alkaline Phosphatase 66 Total Protein 6.0 L Albumin 2.0 L Globulin 3.9 Albumin/Globulin Ratio 0.5 L Procalcitonin Assessment/Plan (1) Respiratory failure Current Visit: Yes Status: Acute (2) Anemia Current Visit: Yes Status: Acute (3) Pneumonia Current Visit: No Status: Acute Attending/Attestation - Attestation I have personally seen and examined this patient.: Yes I have fully participated in the care of the patient.: Yes I have reviewed all pertinent clinical information: Yes Notes (Text): 09/03/17 16:40 patient seen and examined in the intensive care unit. Patient remains intubated on ventilatory support, not tolerating weaning Continue antibiotics as per infectious disease Surgical consult for tracheostomy Follow-up bronchial washing culture and sensitivity Continue PEG feeding"
[2017-09-03] MEDS: Pantoprazole 40 mg Susp UD PO SCH (10:41)
--- NOTE | 2017-09-03 12:49 | CP.PCM.CON ---
History of Present Illness - History of Present Illness History of Present Illness: general Surgery Consult Note for Dr. Sprague This is a 77M with a PMH of Arthritis, Asthma, COPD, Severe Dementia, HTN, Pneumonia, Seizures, TIA, and Right AKA Transferred from intermediate due to fever of unknow origin and duration on 08/24/17. Serology however is positive for mycoplasma. Patient was intubated on admission. Fevers have been successfully controlled and pt has been afebrile for over 24 hours. The patient however has not returned to baseline mentation. The intensive care team has attempted multiple weaning trials daily over the past week without success. PMH:Arthritis, Asthma, COPD, Severe Dementia, HTN, Pneumonia, Seizures, TIA, and Right AKA Transferred PSH: R AKA, PEG ALL: NKDA Social: Senior Care Review of Systems - Review of Systems Systems not reviewed;Unavailable: Acuity of Condition, Altered Mental Status, Intubated Past Patient History - Infectious Disease Hx of Infectious Diseases: None - Past Medical History & Family History Past Medical History?: Yes - Past Social History Smoking Status: Unknown If Ever Smoked - CARDIAC Hx Hypertension: Yes - PULMONARY Hx Chronic Obstructive Pulmonary Disease (COPD): Yes - NEUROLOGICAL Hx Dementia: Yes Hx Seizures: Yes Hx Transient Ischemic Attacks (TIA): Yes - HEENT Hx HEENT Problems: Yes Other/Comment: RT EYELID DROOP - RENAL Hx Chronic Kidney Disease: No - ENDOCRINE/METABOLIC Hx Endocrine Disorders: No - HEMATOLOGICAL/ONCOLOGICAL Hx Anemia: Yes - INTEGUMENTARY Hx Dermatological Problems: Yes Other/Comment: multiple wounds - MUSCULOSKELETAL/RHEUMATOLOGICAL Hx Arthritis: Yes (BACK; KNEE R>L) - GASTROINTESTINAL Hx Gastrointestinal Disorders: No - GENITOURINARY/GYNECOLOGICAL Hx Genitourinary Disorders: Yes - PSYCHIATRIC Hx Substance Use: No - SURGICAL HISTORY Hx Surgeries: Yes Hx Amputation: Yes (right AKA) - ANESTHESIA Hx Anesthesia: Yes Hx Anesthesia Reactions: No Hx Malignant Hyperthermia: No Meds Allergies/Adverse Reactions: Allergies Allergy/AdvReac Type Severity Reaction Status Date / Time No Known Allergies Allergy Verified 07/25/17 01:13 - Medications Medications: Current Medications Acetaminophen (Tylenol 650 Mg Supp) 650 mg TX Q4 PRN PRN Reason: Fever >100.4 F Last Admin: 08/31/17 22:49 Dose: 650 mg Albuterol/Ipratropium (Duoneb 3 Mg/0.5 Mg (3 Ml) Ud) 3 ml INH RQ6 [facility] Last Admin: 09/03/17 07:44 Dose: 3 ml Amantadine HCl (Symmetrel) 100 mg PO DAILY [facility] Last Admin: 09/03/17 09:01 Dose: 100 mg Bisacodyl (Dulcolax) 10 mg TX ONCE PRN PRN Reason: consipation Carbamazepine (Tegretol) 100 mg PEG Q8 [facility] Last Admin: 09/03/17 05:36 Dose: 100 mg Enoxaparin Sodium (Lovenox) 40 mg SC DAILY [facility] Last Admin: 09/01/17 09:31 Dose: 40 mg Metronidazole (Flagyl) 500 mg in 100 mls @ 100 mls/hr IVPB Q8 [facility] PRN Reason: Protocol Last Admin: 09/03/17 05:34 Dose: 100 mls/hr Micafungin Sodium 100 mg/ (Sodium Chloride) 100 mls @ 100 mls/hr IV Q24H [facility] PRN Reason: Protocol Last Admin: 09/02/17 15:12 Dose: 100 mls/hr Lorazepam (Ativan) 1 mg IVP Q4H PRN PRN Reason: Anxiety Last Admin: 09/03/17 10:41 Dose: 1 mg Moxifloxacin HCl (Avelox) 400 mg PO Q24H [facility] Last Admin: 09/02/17 15:07 Dose: 400 mg Pantoprazole Sodium (Protonix Susp) 40 mg PO DAILY [facility] Last Admin: 09/03/17 10:41 Dose: 40 mg Rosuvastatin Calcium (Crestor) 5 mg PO HS [facility] Last Admin: 09/02/17 21:53 Dose: 5 mg Valproate Sodium (Depakene Oral Soln) 250 mg PEG Q12 [facility] Last Admin: 09/03/17 09:01 Dose: 250 mg Physical Exam - Constitutional Appears: Chronically Ill - Head Exam Head Exam: ATRAUMATIC - ENT Exam ENT Exam: Mucous Membranes Moist - Respiratory Exam Additional comments: On ventilator 40% 5peep 500 Volume, Rate 18 - Cardiovascular Exam Cardiovascular Exam: +S1, +S2 - GI/Abdominal Exam GI & Abdominal Exam: Soft Additional comments: Receiving tube feeds - Neurological Exam Neurological exam: Alert, Oriented x3 - Psychiatric Exam Psychiatric exam: Normal Affect, Normal Mood - Skin Skin Exam: Dry, Intact Results - Vital Signs Recent Vital Signs: Last Vital Signs Temp 98.7 F 09/03/17 04:00 Pulse 111 H 09/03/17 11:17 Resp 38 H 09/03/17 11:17 BP 112/58 L 09/03/17 11:17 Pulse Ox 97 09/03/17 11:17 - Labs Result Diagrams: 09/03/17 06:23 09/03/17 06:23 Labs: Laboratory Results - last 24 hr 09/02/17 09/02/17 09/02/17 09:54 15:41 15:41 WBC RBC Hgb Hct MCV MCH MCHC RDW Plt Count MPV Neut % (Auto) Lymph % (Auto) [place] % (Auto) Eos % (Auto) Baso % (Auto) Neut # (Auto) Lymph # (Auto) [place] # (Auto) Eos # (Auto) Baso # (Auto) Puncture Site pCO2 pO2 HCO3 ABG pH ABG Total CO2 ABG O2 Saturation ABG Base Excess ABG Hemoglobin ABG Carboxyhemoglobin POC ABG HHb (Measured) ABG Methemoglobin Collin Test A-a O2 Difference Respiratory Index Hgb O2 Saturation Vent Mode Mechanical Rate FiO2 Tidal Volume PEEP Sodium Potassium Chloride Carbon Dioxide Anion Gap BUN Creatinine Est GFR ( Amer) Est GFR (Non-Af Amer) POC Glucose (mg/dL) Random Glucose Calcium Phosphorus Magnesium Total Bilirubin AST ALT Alkaline Phosphatase Total Protein Albumin Globulin Albumin/Globulin Ratio Procalcitonin 4.19 H Stool Occult Blood Negative Blood Type O POSITIVE Antibody Screen Negative 09/02/17 09/02/17 09/02/17 17:36 17:37 18:27 WBC RBC Hgb Hct MCV MCH MCHC RDW Plt Count MPV Neut % (Auto) Lymph % (Auto) [place] % (Auto) Eos % (Auto) Baso % (Auto) Neut # (Auto) Lymph # (Auto) [place] # (Auto) Eos # (Auto) Baso # (Auto) Puncture Site pCO2 pO2 HCO3 ABG pH ABG Total CO2 ABG O2 Saturation ABG Base Excess ABG Hemoglobin ABG Carboxyhemoglobin POC ABG HHb (Measured) ABG Methemoglobin Collin Test A-a O2 Difference Respiratory Index Hgb O2 Saturation Vent Mode Mechanical Rate FiO2 Tidal Volume PEEP Sodium Potassium Chloride Carbon Dioxide Anion Gap BUN Creatinine Est GFR ( Amer) Est GFR (Non-Af Amer) POC Glucose (mg/dL) 59 L 63 L 134 H Random Glucose Calcium Phosphorus Magnesium Total Bilirubin AST ALT Alkaline Phosphatase Total Protein Albumin Globulin Albumin/Globulin Ratio Procalcitonin Stool Occult Blood Blood Type Antibody Screen 09/02/17 09/02/17 09/03/17 23:29 23:31 00:42 WBC RBC Hgb Hct MCV MCH MCHC RDW Plt Count MPV Neut % (Auto) Lymph % (Auto) [place] % (Auto) Eos % (Auto) Baso % (Auto) Neut # (Auto) Lymph # (Auto) [place] # (Auto) Eos # (Auto) Baso # (Auto) Puncture Site pCO2 pO2 HCO3 ABG pH ABG Total CO2 ABG O2 Saturation ABG Base Excess ABG Hemoglobin ABG Carboxyhemoglobin POC ABG HHb (Measured) ABG Methemoglobin Collin Test A-a O2 Difference Respiratory Index Hgb O2 Saturation Vent Mode Mechanical Rate FiO2 Tidal Volume PEEP Sodium Potassium Chloride Carbon Dioxide Anion Gap BUN Creatinine Est GFR ( Amer) Est GFR (Non-Af Amer) POC Glucose (mg/dL) 68 69 133 H Random Glucose Calcium Phosphorus Magnesium Total Bilirubin AST ALT Alkaline Phosphatase Total Protein Albumin Globulin Albumin/Globulin Ratio Procalcitonin Stool Occult Blood Blood Type Antibody Screen 09/03/17 09/03/17 09/03/17 05:27 05:28 06:23 WBC 10.0 RBC 3.12 L Hgb 8.8 L Hct 26.2 L MCV 84.2 MCH 28.2 MCHC 33.6 RDW 17.4 H Plt Count 249 MPV 7.9 Neut % (Auto) 71.3 Lymph % (Auto) 12.4 L [place] % (Auto) 15.3 H Eos % (Auto) 0.5 Baso % (Auto) 0.5 Neut # (Auto) 7.1 H Lymph # (Auto) 1.2 [place] # (Auto) 1.5 H Eos # (Auto) 0.0 Baso # (Auto) 0.1 Puncture Site Rr pCO2 31 L pO2 93 HCO3 21.5 ABG pH 7.41 ABG Total CO2 20.6 L ABG O2 Saturation 99.1 H ABG Base Excess -4.4 L ABG Hemoglobin 8.7 L ABG Carboxyhemoglobin 1.8 H POC ABG HHb (Measured) 0.9 ABG Methemoglobin 0.9 Collin Test Pos A-a O2 Difference 153.0 Respiratory Index 1.6 Hgb O2 Saturation 96.4 Vent Mode Prvc Mechanical Rate 18 FiO2 40.0 Tidal Volume 400 PEEP 5 Sodium Potassium Chloride Carbon Dioxide Anion Gap BUN Creatinine Est GFR ( Amer) Est GFR (Non-Af Amer) POC Glucose (mg/dL) 103 Random Glucose Calcium Phosphorus Magnesium Total Bilirubin AST ALT Alkaline Phosphatase Total Protein Albumin Globulin Albumin/Globulin Ratio Procalcitonin Stool Occult Blood Blood Type Antibody Screen 09/03/17 09/03/17 06:23 11:43 WBC RBC Hgb Hct MCV MCH MCHC RDW Plt Count MPV Neut % (Auto) Lymph % (Auto) [place] % (Auto) Eos % (Auto) Baso % (Auto) Neut # (Auto) Lymph # (Auto) [place] # (Auto) Eos # (Auto) Baso # (Auto) Puncture Site pCO2 pO2 HCO3 ABG pH ABG Total CO2 ABG O2 Saturation ABG Base Excess ABG Hemoglobin ABG Carboxyhemoglobin POC ABG HHb (Measured) ABG Methemoglobin Collin Test A-a O2 Difference Respiratory Index Hgb O2 Saturation Vent Mode Mechanical Rate FiO2 Tidal Volume PEEP Sodium 151 H Potassium 3.7 Chloride 119 H Carbon Dioxide 20 L Anion Gap 16 BUN 11 Creatinine 0.7 L Est GFR ( Amer) > 60 Est GFR (Non-Af Amer) > 60 POC Glucose (mg/dL) 105 Random Glucose 90 Calcium 7.3 L Phosphorus 3.1 Magnesium 2.0 Total Bilirubin 3.4 H AST 24 ALT 7 L Alkaline Phosphatase 66 Total Protein 6.0 L Albumin 2.0 L Globulin 3.9 Albumin/Globulin Ratio 0.5 L Procalcitonin Stool Occult Blood Blood Type Antibody Screen Assessment & Plan - Assessment and Plan (Free Text) Assessment: 77M with altered mental status who failed multiple ventilator wean trials Will likely benefit from tracheostomy Will discuss with Dr. Celestine Cr PGY2
--- NOTE | 2017-09-03 14:15 | CP.PCM.PN ---
Subjective - Date & Time of Evaluation Date of Evaluation: 09/03/17 Time of Evaluation: 02:10 - Subjective Subjective: dictated Objective - Vital Signs/Intake and Output Vital Signs (last 24 hours): Temp Pulse Resp BP Pulse Ox 98.7 F 111 H 38 H 112/58 L 97 09/03/17 04:00 09/03/17 11:17 09/03/17 11:17 09/03/17 11:17 09/03/17 11:17 Intake and Output: 09/03/17 09/03/17 06:59 18:59 Intake Total 730 200 Output Total 300 140 Balance 430 60 - Medications Medications: Current Medications Acetaminophen (Tylenol 650 Mg Supp) 650 mg NM Q4 PRN PRN Reason: Fever >100.4 F Last Admin: 08/31/17 22:49 Dose: 650 mg Albuterol/Ipratropium (Duoneb 3 Mg/0.5 Mg (3 Ml) Ud) 3 ml INH RQ6 [facility] Last Admin: 09/03/17 13:35 Dose: 3 ml Amantadine HCl (Symmetrel) 100 mg PO DAILY [facility] Last Admin: 09/03/17 09:01 Dose: 100 mg Bisacodyl (Dulcolax) 10 mg NM ONCE PRN PRN Reason: consipation Carbamazepine (Tegretol) 100 mg PEG Q8 [facility] Last Admin: 09/03/17 05:36 Dose: 100 mg Enoxaparin Sodium (Lovenox) 40 mg SC DAILY [facility] Last Admin: 09/01/17 09:31 Dose: 40 mg Metronidazole (Flagyl) 500 mg in 100 mls @ 100 mls/hr IVPB Q8 [facility] PRN Reason: Protocol Last Admin: 09/03/17 05:34 Dose: 100 mls/hr Micafungin Sodium 100 mg/ (Sodium Chloride) 100 mls @ 100 mls/hr IV Q24H [facility] PRN Reason: Protocol Last Admin: 09/02/17 15:12 Dose: 100 mls/hr Lorazepam (Ativan) 1 mg IVP Q4H PRN PRN Reason: Anxiety Last Admin: 09/03/17 10:41 Dose: 1 mg Moxifloxacin HCl (Avelox) 400 mg PO Q24H [facility] Last Admin: 09/02/17 15:07 Dose: 400 mg Pantoprazole Sodium (Protonix Susp) 40 mg PO DAILY [facility] Last Admin: 09/03/17 10:41 Dose: 40 mg Rosuvastatin Calcium (Crestor) 5 mg PO HS [facility] Last Admin: 09/02/17 21:53 Dose: 5 mg Valproate Sodium (Depakene Oral Soln) 250 mg PEG Q12 [facility] Last Admin: 09/03/17 09:01 Dose: 250 mg - Labs Labs: 09/03/17 06:23 09/03/17 06:23 PT 16.5 SECONDS (9.7-12.2) H 08/31/17 06:36 INR 1.5 08/31/17 06:36 APTT 33 SECONDS (21-34) 08/31/17 06:36
[2017-09-03] MEDS: Micafungin 100 MG in Sodium Chloride 0.9% 100 ML IV SCH (15:39)
--- NOTE | 2017-09-03 23:52 | PN ---
DATE: 09/03/2017 SUBJECTIVE: The patient remains intubated. He is still with toxic metabolic encephalopathy, not arousable. He was evaluated by surgeon for possible trach. He had a bronchoscopy yesterday. Dr. Enriquez's coverage is appreciated. The patient's CAT scan shows cavitary lesion, and they have sent the cultures for fungal as well as AFB and the patient remains intubated in the ICU. PHYSICAL EXAMINATION: VITAL SIGNS: T-max was 98.4, pulse 111, blood pressure 115/66, and respirations are 38. HEENT: Head is atraumatic. Intubation. NECK: Supple. LUNGS: Clear. No crackles or rales present. HEART: S1 and S2 are regular. ABDOMEN: Soft and nontender. No guarding. No rigidity present. EXTREMITIES: He has a right BKA and left leg is unremarkable. His foot is in the foot protectors. LABORATORY DATA: Noted. Las show white count is 10, hemoglobin 8.8, hematocrit 26.2, platelet count is 243. Sodium is 151 still high, potassium is 3.7, chloride 119, CO2 is 20, creatinine is 0.9, and glucose is 105 today. Serology came back mycoplasma. IgM is positive. C. difficile is negative. His vancomycin trough on 08/28/2017 was 25 and then we were following the random level, which was unremarkable, 16.9, on 08/30/2017. MEDICATIONS: At this time, he is on Avelox and Mycamine and is on nebulizer treatment and on amantadine 100 mg p.o. antiviral. He is on Colace, carbamazepine, Lovenox, and amantadine was just added today, looks like, Lovenox and lorazepam. He is on metronidazole, micafungin, moxifloxacin, Protonix, calcium, rosuvastatin, and Depakote. His cultures so far came back, fungal is pending and preliminary mycobacterium. AFB stain shows no AFB Bacilli and it is sent for culture. Sputum was normal. Blood cultures were normal and fungal cultures preliminary is back from the bronchial washings and shows no fungal elements seen. IMPRESSION: Fevers are down on the current antibiotics. He is being covered for mycoplasma, IGM being positive with Avelox, and we are covering fungal at this time empirically and Flagyl for anaerobes, and he is with respiratory failure, remains toxic metabolic encephalopathy, and we are going to follow the bronchial cultures. His report from the x-ray on 09/03/2017 shows no significant change in right upper lobe cystic changes, bulla and right pleural effusion, static position of the endotracheal tube, so they are reading bulla and on the CAT scan, they read as cavity. The chest, abdomen, and pelvic CT which was ordered 08/27/2017 when I went away shows emphysema and fibrosis, bleb and bulla versus cavitary lesions in the right apex with increasing amount of fluid within the lesion, increasing pleural effusion, and increasing air space disease in the right upper lobe and in both lower lobe, atherosclerotic disease, post surgical changes in the right chest wall, and he also has hypernatremia at this time. Bladimir Muñoz MD [id number]
[2017-09-04] MEDS: Albuterol-Ipratrop 3 mg / 0.5 (3 ml) UD INH SCH ×4 (01:11→20:11)
--- NOTE | 2017-09-04 04:04 | CP.PCM.PN ---
Subjective - Date & Time of Evaluation Date of Evaluation: 09/03/17 Time of Evaluation: 19:00 - Subjective Subjective: Pt is seen and examined, he underwent bronchosopy, he is on mechanical ventilator, bronchospoy reveals atelectasis and mucous plugs, although is in no resp distress and comfortable, on med management, antibiotics Objective - Vital Signs/Intake and Output Vital Signs (last 24 hours): Temp Pulse Resp BP Pulse Ox 101 F H 102 H 30 H 102/57 L 96 09/04/17 00:00 09/04/17 03:00 09/04/17 03:00 09/04/17 02:17 09/04/17 03:00 Intake and Output: 09/03/17 09/04/17 18:59 06:59 Intake Total 680 420 Output Total 341 220 Balance 339 200 - Medications Medications: Current Medications Acetaminophen (Tylenol 650 Mg Supp) 650 mg [place] Q4 PRN PRN Reason: Fever >100.4 F Last Admin: 09/03/17 23:40 Dose: 650 mg Albuterol/Ipratropium (Duoneb 3 Mg/0.5 Mg (3 Ml) Ud) 3 ml INH RQ6 [facility] Last Admin: 09/04/17 01:11 Dose: 3 ml Amantadine HCl (Symmetrel) 100 mg PO DAILY [facility] Last Admin: 09/03/17 09:01 Dose: 100 mg Bisacodyl (Dulcolax) 10 mg [place] ONCE PRN PRN Reason: consipation Carbamazepine (Tegretol) 100 mg PEG Q8 [facility] Last Admin: 09/03/17 21:20 Dose: 100 mg Enoxaparin Sodium (Lovenox) 40 mg SC DAILY [facility] Last Admin: 09/01/17 09:31 Dose: 40 mg Metronidazole (Flagyl) 500 mg in 100 mls @ 100 mls/hr IVPB Q8 [facility] PRN Reason: Protocol Last Admin: 09/03/17 21:17 Dose: 100 mls/hr Micafungin Sodium 100 mg/ (Sodium Chloride) 100 mls @ 100 mls/hr IV Q24H [facility] PRN Reason: Protocol Last Admin: 09/03/17 15:39 Dose: 100 mls/hr Lorazepam (Ativan) 1 mg IVP Q4H PRN PRN Reason: Anxiety Last Admin: 06/01/18 10:41 Dose: 1 mg Moxifloxacin HCl (Avelox) 400 mg PO Q24H [facility] Last Admin: 09/03/17 14:32 Dose: 400 mg Pantoprazole Sodium (Protonix Susp) 40 mg PO DAILY [facility] Last Admin: 09/03/17 10:41 Dose: 40 mg Rosuvastatin Calcium (Crestor) 5 mg PO HS [facility] Last Admin: 09/03/17 21:20 Dose: 5 mg Valproate Sodium (Depakene Oral Soln) 250 mg PEG Q12 [facility] Last Admin: 09/03/17 21:19 Dose: 250 mg - Labs Labs: 09/03/17 06:23 09/03/17 06:23 PT 16.5 SECONDS (9.7-12.2) H 08/31/17 06:36 INR 1.5 08/31/17 06:36 APTT 33 SECONDS (21-34) 08/31/17 06:36 - Constitutional Appears: No Acute Distress, Chronically Ill - Head Exam Head Exam: ATRAUMATIC, NORMAL INSPECTION, NORMOCEPHALIC - Eye Exam Eye Exam: EOMI, Normal appearance, PERRL Pupil Exam: NORMAL ACCOMODATION, PERRL - ENT Exam ENT Exam: Mucous Membranes Moist, Normal Exam - Respiratory Exam Respiratory Exam: Decreased Breath Sounds, Rales, Rhonchi - Cardiovascular Exam Cardiovascular Exam: REGULAR RHYTHM, +S1, +S2. absent: Murmur - GI/Abdominal Exam GI & Abdominal Exam: Soft, Normal Bowel Sounds. absent: Tenderness - Rectal Exam Rectal Exam: Deferred - Neurological Exam Neurological Exam: Alert, Awake, CN II-XII Intact, Normal Gait, Oriented x3 Assessment and Plan (1) Sepsis Status: Acute (2) Fever Status: Acute (3) Seizure disorder Status: Acute (4) COPD (chronic obstructive pulmonary disease) Status: Chronic (5) PVD (peripheral vascular disease) Status: Chronic (6) Respiratory failure Status: Acute
[2017-09-04] MEDS: carBAMazepine Chew Tab 100 MG Chew Tab PEG SCH ×3 (05:44→21:06)
[2017-09-04] MEDS: metroNIDAZOLE IV 500 mg/100 ml 500 MG/100 ML BAG IVPB SCH ×3 (05:44→21:06)
--- NOTE | 2017-09-04 06:03 | CP.PCM.PN ---
Subjective - Date & Time of Evaluation Date of Evaluation: 09/04/17 Time of Evaluation: 19:00 - Subjective Subjective: Pt is seen and examined today Objective - Vital Signs/Intake and Output Vital Signs (last 24 hours): Temp Pulse Resp BP Pulse Ox 99.6 F 106 H 21 115/58 L 96 09/04/17 04:00 09/04/17 05:17 09/04/17 05:17 09/04/17 05:17 09/04/17 05:17 Intake and Output: 09/03/17 09/04/17 18:59 06:59 Intake Total 680 500 Output Total 341 265 Balance 339 235 - Medications Medications: Current Medications Acetaminophen (Tylenol 650 Mg Supp) 650 mg [place] Q4 PRN PRN Reason: Fever >100.4 F Last Admin: 09/03/17 23:40 Dose: 650 mg Albuterol/Ipratropium (Duoneb 3 Mg/0.5 Mg (3 Ml) Ud) 3 ml INH RQ6 [facility] Last Admin: 09/04/17 01:11 Dose: 3 ml Amantadine HCl (Symmetrel) 100 mg PO DAILY [facility] Last Admin: 09/03/17 09:01 Dose: 100 mg Bisacodyl (Dulcolax) 10 mg [place] ONCE PRN PRN Reason: consipation Carbamazepine (Tegretol) 100 mg PEG Q8 [facility] Last Admin: 09/04/17 05:44 Dose: 100 mg Enoxaparin Sodium (Lovenox) 40 mg SC DAILY [facility] Last Admin: 09/01/17 09:31 Dose: 40 mg Metronidazole (Flagyl) 500 mg in 100 mls @ 100 mls/hr IVPB Q8 [facility] PRN Reason: Protocol Last Admin: 09/04/17 05:44 Dose: 100 mls/hr Micafungin Sodium 100 mg/ (Sodium Chloride) 100 mls @ 100 mls/hr IV Q24H [facility] PRN Reason: Protocol Last Admin: 09/03/17 15:39 Dose: 100 mls/hr Lorazepam (Ativan) 1 mg IVP Q4H PRN PRN Reason: Anxiety Last Admin: 09/03/17 10:41 Dose: 1 mg Moxifloxacin HCl (Avelox) 400 mg PO Q24H [facility] Last Admin: 09/03/17 14:32 Dose: 400 mg Pantoprazole Sodium (Protonix Susp) 40 mg PO DAILY [facility] Last Admin: 09/03/17 10:41 Dose: 40 mg Rosuvastatin Calcium (Crestor) 5 mg PO HS [facility] Last Admin: 09/03/17 21:20 Dose: 5 mg Valproate Sodium (Depakene Oral Soln) 250 mg PEG Q12 [facility] Last Admin: 09/03/17 21:19 Dose: 250 mg - Labs Labs: 09/03/17 06:23 09/03/17 06:23 PT 16.5 SECONDS (9.7-12.2) H 08/31/17 06:36 INR 1.5 08/31/17 06:36 APTT 33 SECONDS (21-34) 08/31/17 06:36 Assessment and Plan (1) Sepsis Status: Acute (2) Fever Status: Acute (3) Seizure disorder Status: Acute (4) COPD (chronic obstructive pulmonary disease) Status: Chronic (5) PVD (peripheral vascular disease) Status: Chronic (6) Respiratory failure Status: Acute
[2017-09-04 06:38] LABS: BASO # 0.1 K/uL (0.0-0.2); BASO % 0.7 % (0.0-2.0); EOS % 0.5 % (0.0-4.0); HEMOGLOBIN 8.4 g/dL (12.0-18.0); LYMPH # 1.6 K/uL (1.0-4.3); LYMPH % 18.5 % (20.0-40.0); MEAN CELL VOLUME 83.5 fL (80.0-94.0); MEAN CORPUSCULAR HEMOGLOBIN 28.1 pg (27.0-31.0); MEAN CORPUSCULAR HGB CONC 33.7 g/dL (33.0-37.0); MEAN PLATELET VOLUME 8.4 fL (7.2-11.7); MONO # 1.6 K/uL (0.0-0.8); MONO % 18.4 % (0.0-10.0); NEUT # 5.3 K/uL (1.8-7.0); NEUT % 61.9 % (50.0-75.0); NRBC % 0.2 % (0.0-2.0); RED CELL DISTRIBUTION WIDTH 17.2 % (11.5-14.5); WHITE BLOOD COUNT 8.6 K/uL (4.8-10.8)
[2017-09-04 06:55] LABS: ALB/GLOB RATIO 0.5 (1.0-2.1); ALBUMIN 1.9 g/dL (3.5-5.0); AST/SGOT 28 U/L (17-59); BLOOD UREA NITROGEN 13 mg/dL (9-20); CALCIUM 7.3 mg/dl (8.6-10.4); GFR AFRICAN-AMERICAN > 60; GFR NON-AFRICAN AMERICAN > 60
[2017-09-04 06:56] LABS: ALT/SGPT < 6 U/L (21-72)
[2017-09-04] MEDS: Amantadine 50 mg/5 ml Syrup (473 ml) PO SCH (09:19)
[2017-09-04] MEDS: Enoxaparin 40 mg Syringe SC SCH (09:19)
[2017-09-04] MEDS: Pantoprazole 40 mg Susp UD PO SCH (09:19)
[2017-09-04] MEDS: Valproic Acid 250 mg/5 ml UD Cup PEG SCH ×2 (09:19→21:06)
--- NOTE | 2017-09-04 09:44 | CP.PCM.PN ---
Subjective - Date & Time of Evaluation Date of Evaluation: 09/04/17 Time of Evaluation: 09:42 - Subjective Subjective: The patient is on ventilator. He is on full support ventilation Tachypnea noted. Generalized anasarca, edema positive. Patient is tolerating the feeding. Sacral decubiti noted. Ecchymosis present. Patient is awake and responding. But he is nonverbal. On examination: Vital signs reviewed Chest good air entry, rales and wheezing noted. Regular heart sounds. Abdomen soft. Smiled scrotal edema,, left leg edema noted. Patient has a right AKA Labs reviewed in Low hemoglobin, low albumin, low nutrition status noted X-ray chest is showing right lung atelectasis, pneumonia, cavitary lung disease Chronic Assessment and recommendation: 76-year-old male with a history of chronic lung disease. Dementia. Admitted with the acute respiratory failure, pneumonia, complicated with a chronic respiratory insufficiency. He will need to possibly tracheostomy. Long-term ventilator management. Continue the supportive treatment. 's nutritional support. On antibiotic will follow-up the patient Objective - Vital Signs/Intake and Output Vital Signs (last 24 hours): Temp Pulse Resp BP Pulse Ox 99.6 F 105 H 13 119/71 97 09/04/17 04:00 09/04/17 07:00 09/04/17 07:00 09/04/17 06:17 09/04/17 07:00 Intake and Output: 09/04/17 09/04/17 06:59 18:59 Intake Total 540 40 Output Total 295 25 Balance 245 15 - Medications Medications: Current Medications Acetaminophen (Tylenol 650 Mg Supp) 650 mg [place] Q4 PRN PRN Reason: Fever >100.4 F Last Admin: 09/03/17 23:40 Dose: 650 mg Albuterol/Ipratropium (Duoneb 3 Mg/0.5 Mg (3 Ml) Ud) 3 ml INH RQ6 [facility] Last Admin: 09/04/17 07:41 Dose: 3 ml Amantadine HCl (Symmetrel) 100 mg PO DAILY [facility] Last Admin: 09/04/17 09:19 Dose: 100 mg Bisacodyl (Dulcolax) 10 mg [place] ONCE PRN PRN Reason: consipation Carbamazepine (Tegretol) 100 mg PEG Q8 [facility] Last Admin: 09/04/17 05:44 Dose: 100 mg Enoxaparin Sodium (Lovenox) 40 mg SC DAILY [facility] Last Admin: 09/04/17 09:19 Dose: 40 mg Metronidazole (Flagyl) 500 mg in 100 mls @ 100 mls/hr IVPB Q8 [facility] PRN Reason: Protocol Last Admin: 09/04/17 05:44 Dose: 100 mls/hr Micafungin Sodium 100 mg/ (Sodium Chloride) 100 mls @ 100 mls/hr IV Q24H [facility] PRN Reason: Protocol Last Admin: 09/03/17 15:39 Dose: 100 mls/hr Lorazepam (Ativan) 1 mg IVP Q4H PRN PRN Reason: Anxiety Last Admin: 09/03/17 10:41 Dose: 1 mg Moxifloxacin HCl (Avelox) 400 mg PO Q24H [facility] Last Admin: 09/03/17 14:32 Dose: 400 mg Pantoprazole Sodium (Protonix Susp) 40 mg PO DAILY [facility] Last Admin: 09/04/17 09:19 Dose: 40 mg Rosuvastatin Calcium (Crestor) 5 mg PO HS [facility] Last Admin: 09/03/17 21:20 Dose: 5 mg Valproate Sodium (Depakene Oral Soln) 250 mg PEG Q12 [facility] Last Admin: 09/04/17 09:19 Dose: 250 mg - Labs Labs: 09/04/17 06:30 09/04/17 06:31 PT 16.5 SECONDS (9.7-12.2) H 08/31/17 06:36 INR 1.5 08/31/17 06:36 APTT 33 SECONDS (21-34) 08/31/17 06:36 Assessment and Plan (1) Respiratory failure Status: Acute (2) Acute hypernatremia Status: Acute (3) Cellulitis of right foot Status: Acute
[2017-09-04] MEDS: Micafungin 100 MG in Sodium Chloride 0.9% 100 ML IV SCH (15:02)
--- NOTE | 2017-09-04 16:20 | CP.PCM.PN ---
Subjective - Date & Time of Evaluation Date of Evaluation: 09/04/17 Time of Evaluation: 14:50 - Subjective Subjective: patient seen and examined Remains intubated on ventilatory support Not tolerating weaning Status post bronchoscopy tolerating feeding Continue antibiotics Tracheostomy on Wednesday Objective - Vital Signs/Intake and Output Vital Signs (last 24 hours): Temp Pulse Resp BP Pulse Ox 98.7 F 101 H 17 104/59 L 98 09/04/17 08:00 09/04/17 13:17 09/04/17 13:17 09/04/17 13:17 09/04/17 13:17 Intake and Output: 09/04/17 09/04/17 06:59 18:59 Intake Total 540 380 Output Total 295 220 Balance 245 160 - Medications Medications: Current Medications Acetaminophen (Tylenol 650 Mg Supp) 650 mg [place] Q4 PRN PRN Reason: Fever >100.4 F Last Admin: 09/03/17 23:40 Dose: 650 mg Albuterol/Ipratropium (Duoneb 3 Mg/0.5 Mg (3 Ml) Ud) 3 ml INH RQ6 [facility] Last Admin: 09/04/17 13:26 Dose: 3 ml Amantadine HCl (Symmetrel) 100 mg PO DAILY [facility] Last Admin: 09/04/17 09:19 Dose: 100 mg Bisacodyl (Dulcolax) 10 mg [place] ONCE PRN PRN Reason: consipation Carbamazepine (Tegretol) 100 mg PEG Q8 [facility] Last Admin: 09/04/17 14:09 Dose: 100 mg Enoxaparin Sodium (Lovenox) 40 mg SC DAILY [facility] Last Admin: 09/04/17 09:19 Dose: 40 mg Metronidazole (Flagyl) 500 mg in 100 mls @ 100 mls/hr IVPB Q8 [facility] PRN Reason: Protocol Last Admin: 09/04/17 13:56 Dose: 100 mls/hr Micafungin Sodium 100 mg/ (Sodium Chloride) 100 mls @ 100 mls/hr IV Q24H [facility] PRN Reason: Protocol Last Admin: 09/04/17 15:02 Dose: 100 mls/hr Lorazepam (Ativan) 1 mg IVP Q4H PRN PRN Reason: Anxiety Last Admin: 09/03/17 10:41 Dose: 1 mg Moxifloxacin HCl (Avelox) 400 mg PO Q24H [facility] Last Admin: 09/04/17 14:06 Dose: 400 mg Pantoprazole Sodium (Protonix Susp) 40 mg PO DAILY [facility] Last Admin: 09/04/17 09:19 Dose: 40 mg Rosuvastatin Calcium (Crestor) 5 mg PO HS [facility] Last Admin: 09/03/17 21:20 Dose: 5 mg Valproate Sodium (Depakene Oral Soln) 250 mg PEG Q12 [facility] Last Admin: 09/04/17 09:19 Dose: 250 mg - Labs Labs: 09/04/17 06:30 09/04/17 06:31 PT 16.5 SECONDS (9.7-12.2) H 08/31/17 06:36 INR 1.5 08/31/17 06:36 APTT 33 SECONDS (21-34) 08/31/17 06:36 Assessment and Plan (1) Respiratory failure Status: Acute (2) Anemia Status: Acute (3) Pneumonia Status: Acute
[2017-09-05] MEDS: Albuterol-Ipratrop 3 mg / 0.5 (3 ml) UD INH SCH ×4 (01:09→20:09)
[2017-09-05] MEDS: carBAMazepine Chew Tab 100 MG Chew Tab PEG SCH ×3 (05:15→21:50)
[2017-09-05] MEDS: metroNIDAZOLE IV 500 mg/100 ml 500 MG/100 ML BAG IVPB SCH ×3 (05:15→21:50)
[2017-09-05 06:07] LABS: BASO # 0.1 K/uL (0.0-0.2); BASO % 0.8 % (0.0-2.0); EOS % 0.4 % (0.0-4.0); HEMOGLOBIN 8.7 g/dL (12.0-18.0); LYMPH # 1.7 K/uL (1.0-4.3); LYMPH % 20.9 % (20.0-40.0); MEAN CELL VOLUME 84.6 fL (80.0-94.0); MEAN CORPUSCULAR HEMOGLOBIN 28.2 pg (27.0-31.0); MEAN CORPUSCULAR HGB CONC 33.4 g/dL (33.0-37.0); MEAN PLATELET VOLUME 8.9 fL (7.2-11.7); MONO # 1.5 K/uL (0.0-0.8); MONO % 17.6 % (0.0-10.0); NEUT % 60.3 % (50.0-75.0); NRBC % 0.5 % (0.0-2.0); RBC 3.08 Mil/uL (4.40-5.90); RED CELL DISTRIBUTION WIDTH 17.8 % (11.5-14.5); WHITE BLOOD COUNT 8.3 K/uL (4.8-10.8)
[2017-09-05 06:27] LABS: ALB/GLOB RATIO 0.4 (1.0-2.1); ALBUMIN 1.9 g/dL (3.5-5.0); ALT/SGPT 8 U/L (21-72); AST/SGOT 32 U/L (17-59); BLOOD UREA NITROGEN 14 mg/dL (9-20); CALCIUM 6.9 mg/dl (8.6-10.4); GFR AFRICAN-AMERICAN > 60; GFR NON-AFRICAN AMERICAN > 60
[2017-09-05] MEDS: Valproic Acid 250 mg/5 ml UD Cup PEG SCH ×2 (09:00→21:50)
[2017-09-05] MEDS: Enoxaparin 40 mg Syringe SC SCH (09:00)
[2017-09-05] MEDS: Amantadine 50 mg/5 ml Syrup (473 ml) PO SCH ×2 (09:00→09:51)
[2017-09-05] MEDS: Pantoprazole 40 mg Susp UD PO SCH (09:01)
--- NOTE | 2017-09-05 11:11 | CP.PCM.PN ---
Subjective - Date & Time of Evaluation Date of Evaluation: 09/05/17 Time of Evaluation: 11:08 - Subjective Subjective: Pulmonary Follow up Covering Dr. [place] The Patient was seen and examined at the bedside, Medical records reviewed, and management issues were discussed and formulated with the house staff. Events reviewed Remains orally intubated, mechanically vented, Patient did not tolerate vent weaning trial today +Tachypnea On PRVC: 40%Fi02, 18 RR, 400 TV, 5 PEEP Status post bronchoscopy Awake, comfortable, + generalized weakness, edema with anasarca. Denies any fevers, chills, SOB, chest pain or abdominal pain. Tolerating tube feeding Afebrile, minimal resp secretions Failed weaning, and scheduled or Tracheostomy on Wednesday Objective - Vital Signs/Intake and Output Vital Signs (last 24 hours): Temp Pulse Resp BP Pulse Ox 99.1 F 101 H 29 H 105/46 L 96 09/05/17 08:00 09/05/17 09:51 09/05/17 09:51 09/05/17 09:53 09/05/17 09:51 Intake and Output: 09/05/17 09/05/17 06:59 18:59 Intake Total 1320 120 Output Total 325 85 Balance 995 35 - Medications Medications: Current Medications Acetaminophen (Tylenol 650 Mg Supp) 650 mg [place] Q4 PRN PRN Reason: Fever >100.4 F Last Admin: 09/03/17 23:40 Dose: 650 mg Albuterol/Ipratropium (Duoneb 3 Mg/0.5 Mg (3 Ml) Ud) 3 ml INH RQ6 [facility] Last Admin: 09/05/17 07:36 Dose: 3 ml Amantadine HCl (Symmetrel) 100 mg PO DAILY [facility] Last Admin: 09/05/17 09:51 Dose: Not Given Bisacodyl (Dulcolax) 10 mg [place] ONCE PRN PRN Reason: consipation Carbamazepine (Tegretol) 100 mg PEG Q8 [facility] Last Admin: 09/05/17 05:15 Dose: 100 mg Enoxaparin Sodium (Lovenox) 40 mg SC DAILY [facility] Last Admin: 09/05/17 09:00 Dose: 40 mg Metronidazole (Flagyl) 500 mg in 100 mls @ 100 mls/hr IVPB Q8 [facility] PRN Reason: Protocol Last Admin: 09/05/17 05:15 Dose: 100 mls/hr Micafungin Sodium 100 mg/ (Sodium Chloride) 100 mls @ 100 mls/hr IV Q24H [facility] PRN Reason: Protocol Last Admin: 09/04/17 15:02 Dose: 100 mls/hr Lorazepam (Ativan) 1 mg IVP Q4H PRN PRN Reason: Anxiety Last Admin: 09/03/17 10:41 Dose: 1 mg Moxifloxacin HCl (Avelox) 400 mg PO Q24H [facility] Last Admin: 09/04/17 14:06 Dose: 400 mg Pantoprazole Sodium (Protonix Susp) 40 mg PO DAILY [facility] Last Admin: 09/05/17 09:01 Dose: 40 mg Rosuvastatin Calcium (Crestor) 5 mg PO HS [facility] Last Admin: 09/04/17 21:06 Dose: 5 mg Valproate Sodium (Depakene Oral Soln) 250 mg PEG Q12 [facility] Last Admin: 09/05/17 09:00 Dose: 250 mg - Labs Labs: 09/05/17 06:00 09/05/17 06:00 PT 16.5 SECONDS (9.7-12.2) H 08/31/17 06:36 INR 1.5 08/31/17 06:36 APTT 33 SECONDS (21-34) 08/31/17 06:36 - Constitutional Appears: Well, Non-toxic, No Acute Distress - Head Exam Head Exam: ATRAUMATIC, NORMAL INSPECTION - Eye Exam Eye Exam: EOMI, PERRL. absent: Conjunctival injection - ENT Exam ENT Exam: Mucous Membranes Dry - Neck Exam Neck Exam: Full ROM, Normal Inspection - Respiratory Exam Respiratory Exam: Decreased Breath Sounds, Rhonchi. absent: Accessory Muscle Use, Chest Wall Tenderness, Rales, Wheezes - Cardiovascular Exam Cardiovascular Exam: REGULAR RHYTHM, RRR, +S1, +S2. absent: Bradycardia, Tachycardia, JVD - GI/Abdominal Exam GI & Abdominal Exam: Distended, Soft, Normal Bowel Sounds. absent: Firm, Guarding, Rigid - Extremities Exam Extremities Exam: Full ROM, Normal Capillary Refill, Pedal Edema. absent: Calf Tenderness, Joint Swelling - Neurological Exam Neurological Exam: Alert, Awake Assessment and Plan (1) Respiratory failure Assessment & Plan: Acute Hypoxic Res. Failure from pnaumonia and Asthma/COPD Intubated Emergently: On PRVC: 40%Fi02, 18 RR, 400 TV, 5 PEEP DuoNebs Schedule Afebrile, minimal resp secretions Failed weaning, and scheduled or Tracheostomy on Wednesday Status: Acute (2) Pneumonia Assessment & Plan: Blood Cultures - NEGATIVE Urine Cultures - NEGATIVE Sputum Cultures - Normal florw MRSA 2gm Cefepime given in ED S/P Zosyn and Vanc. currently on IV Moxifloxacin and Micafungin Status: Acute (3) COPD (chronic obstructive pulmonary disease) Status: Chronic (4) Sepsis Status: Acute (5) Failure to thrive Status: Acute
--- NOTE | 2017-09-05 12:58 | CP.PCM.PN ---
Subjective - Date & Time of Evaluation Date of Evaluation: 09/05/17 Time of Evaluation: 12:55 - Subjective Subjective: Surgery Pt intubated on FiO2 40% PEEP 5. Pt doesn't reponse to verbal stimuli. VSS Objective - Vital Signs/Intake and Output Vital Signs (last 24 hours): Temp Pulse Resp BP Pulse Ox 101.0 F H 96 H 24 89/45 L 97 09/05/17 12:32 09/05/17 11:53 09/05/17 11:53 09/05/17 11:53 09/05/17 11:53 Intake and Output: 09/05/17 09/05/17 06:59 18:59 Intake Total 1320 200 Output Total 325 150 Balance 995 50 - Medications Medications: Current Medications Acetaminophen (Tylenol 650 Mg Supp) 650 mg [place] Q4 PRN PRN Reason: Fever >100.4 F Last Admin: 09/05/17 12:32 Dose: 650 mg Albuterol/Ipratropium (Duoneb 3 Mg/0.5 Mg (3 Ml) Ud) 3 ml INH RQ6 [facility] Last Admin: 09/05/17 07:36 Dose: 3 ml Amantadine HCl (Symmetrel) 100 mg PO DAILY [facility] Last Admin: 09/05/17 09:51 Dose: Not Given Bisacodyl (Dulcolax) 10 mg [place] ONCE PRN PRN Reason: consipation Carbamazepine (Tegretol) 100 mg PEG Q8 [facility] Last Admin: 09/05/17 05:15 Dose: 100 mg Enoxaparin Sodium (Lovenox) 40 mg SC DAILY [facility] Last Admin: 09/05/17 09:00 Dose: 40 mg Metronidazole (Flagyl) 500 mg in 100 mls @ 100 mls/hr IVPB Q8 [facility] PRN Reason: Protocol Last Admin: 09/05/17 05:15 Dose: 100 mls/hr Micafungin Sodium 100 mg/ (Sodium Chloride) 100 mls @ 100 mls/hr IV Q24H [facility] PRN Reason: Protocol Last Admin: 09/04/17 15:02 Dose: 100 mls/hr Lorazepam (Ativan) 1 mg IVP Q4H PRN PRN Reason: Anxiety Last Admin: 09/03/17 10:41 Dose: 1 mg Moxifloxacin HCl (Avelox) 400 mg PO Q24H [facility] Last Admin: 09/04/17 14:06 Dose: 400 mg Pantoprazole Sodium (Protonix Susp) 40 mg PO DAILY [facility] Last Admin: 09/05/17 09:01 Dose: 40 mg Rosuvastatin Calcium (Crestor) 5 mg PO HS [facility] Last Admin: 09/04/17 21:06 Dose: 5 mg Valproate Sodium (Depakene Oral Soln) 250 mg PEG Q12 [facility] Last Admin: 09/05/17 09:00 Dose: 250 mg - Labs Labs: 09/05/17 06:00 09/05/17 06:00 PT 16.5 SECONDS (9.7-12.2) H 08/31/17 06:36 INR 1.5 08/31/17 06:36 APTT 33 SECONDS (21-34) 08/31/17 06:36 - Constitutional Appears: Non-toxic - Head Exam Head Exam: ATRAUMATIC, NORMAL INSPECTION, NORMOCEPHALIC - ENT Exam ENT Exam: Mucous Membranes Moist, Normal Exam - Neck Exam Additional comments: endotrachial tube - Respiratory Exam Additional comments: On vent PEEP 15 FiO2 40% - Cardiovascular Exam Cardiovascular Exam: REGULAR RHYTHM, +S1, +S2. absent: Murmur - GI/Abdominal Exam GI & Abdominal Exam: Soft, Normal Bowel Sounds. absent: Distended, Tenderness - Extremities Exam Extremities Exam: Normal Inspection - Skin Skin Exam: Dry, Intact, Normal Color, Warm Assessment and Plan - Assessment and Plan (Free Text) Assessment: 77M with altered mental status who failed multiple ventilator wean trials intubated since 08/24 Will likely benefit from tracheostomy Will discuss with Dr. Sprague
[2017-09-05 13:09] LABS: TB ANTIGEN MINUS NIL 0.01 IU/mL
[2017-09-05] MEDS: Micafungin 100 MG in Sodium Chloride 0.9% 100 ML IV SCH (15:03)
--- NOTE | 2017-09-05 17:32 | CP.CCUPN ---
CCU Subjective - Physician Review Events Since Last Encounter (Free Text): 09/05/17 17:31 The patient is on ventilator. He is on full support ventilation Tachypnea noted. Generalized anasarca, edema positive. Patient is tolerating the feeding. Sacral decubiti noted. Ecchymosis present. Patient is awake and responding. But he is nonverbal. On examination: Vital signs reviewed Chest good air entry, rales and wheezing noted. Regular heart sounds. Abdomen soft. Smiled scrotal edema,, left leg edema noted. Patient has a right AKA Labs reviewed in Low hemoglobin, low albumin, low nutrition status noted X-ray chest is showing right lung atelectasis, pneumonia, cavitary lung disease Assessment and recommendation: 76-year-old male with a history of chronic lung disease. Dementia. Admitted with the acute respiratory failure, pneumonia, complicated with a chronic respiratory insufficiency. He will need to possibly tracheostomy. Long-term ventilator management. Continue the supportive treatment. nutritional support. On antibiotic will follow-up the patient change line in am will f/u CCU Objective - Vital Signs / Intake & Output Vital Signs (Last 4 hours): Vital Signs Temp Pulse Resp BP Pulse Ox 09/05/17 16:00 98.7 F 97 09/05/17 15:53 87 23 96/49 L 99 09/05/17 14:53 96 H 19 95/56 L 98 09/05/17 13:53 99 H 25 H 82/52 L 94 L 09/05/17 13:32 99.1 F Intake and Output (Last 8hrs): Intake & Output 09/05/17 09/05/17 09/05/17 06:59 14:59 22:59 Intake Total 1060 580 180 Output Total 220 190 30 Balance 840 390 150 Weight 144 lb 1.6 oz Intake: Intake, IV Amount 500 100 100 Left Medial Port Internal 500 100 100 Jugular Oral 200 Tube Feeding 360 280 80 Other 200 Output: Urine 220 190 30 Urethral (Brown) 220 190 30 Other: # Bowel Movements 1 1 - Physical Exam Head: Positive for: Atraumatic, Normocephalic Pupils: Positive for: PERRL Mouth: Negative for: Moist Mucous Membranes Respiratory/Chest: Positive for: Clear to Auscultation, Decreased Breath Sounds (RUL ), Other (Intubated) Cardiovascular: Positive for: Normal S1, S2. Negative for: Tachycardic Abdomen: Positive for: Normal Bowel Sounds. Negative for: Distention Neurological: Negative for: GCS=15 (10T) Psychiatric: Negative for: Alert - Medications Active Medications: Active Medications Generic Name Dose Route Start Last Admin Trade Name Freq PRN Reason Stop Dose Admin Acetaminophen 650 mg 08/25/17 17:20 09/05/17 12:32 Tylenol 650 Mg Supp ID 650 mg Q4 PRN Administration Fever >100.4 F Albuterol/Ipratropium 3 ml 08/28/17 08:00 09/05/17 13:18 Duoneb 3 Mg/0.5 Mg (3 Ml) Ud INH 3 ml RQ6 AMY Administration Amantadine HCl 100 mg 09/05/17 10:00 09/05/17 09:51 Symmetrel PO Not Given DAILY AMY Bisacodyl 10 mg 08/29/17 08:30 Dulcolax ID ONCE PRN consipation Carbamazepine 100 mg 08/24/17 22:00 09/05/17 14:51 Tegretol PEG 100 mg Q8 AMY Administration Enoxaparin Sodium 40 mg 08/24/17 18:00 09/05/17 09:00 Lovenox SC 40 mg DAILY AMY Administration Metronidazole 500 mg in 100 mls @ 100 mls/hr 08/31/17 14:00 09/05/17 13:34 Flagyl IVPB 100 mls/hr Q8 AMY Administration Protocol Micafungin Sodium 100 mg/ 100 mls @ 100 mls/hr 09/01/17 16:00 09/05/17 15:03 Sodium Chloride IV 100 mls/hr Q24H AMY Administration Protocol Lorazepam 1 mg 09/03/17 01:11 09/03/17 10:41 Ativan IVP 1 mg Q4H PRN Administration Anxiety Moxifloxacin HCl 400 mg 09/01/17 15:00 09/05/17 15:07 Avelox PO 400 mg Q24H AMY Administration Pantoprazole Sodium 40 mg 08/29/17 10:00 09/05/17 09:01 Protonix Susp PO 40 mg DAILY AMY Administration Rosuvastatin Calcium 5 mg 08/24/17 22:00 09/04/17 21:06 Crestor PO 5 mg HS AMY Administration Valproate Sodium 250 mg 09/02/17 22:00 09/05/17 09:00 Depakene Oral Soln PEG 250 mg Q12 AMY Administration - Patient Studies Lab Studies: Microbiology Studies 08/31/17 10:00 Blood Culture - Final Blood NO GROWTH AFTER 5 DAYS Gram Stain - Final TEST NOT PERFORMED 08/31/17 10:30 Blood Culture - Final Blood NO GROWTH AFTER 5 DAYS Gram Stain - Final TEST NOT PERFORMED 09/02/17 14:09 Mycobacterial Culture - Preliminary Other: Please Indicate Lab Studies 09/05/17 09/05/17 09/05/17 Range/Units 12:26 11:18 06:00 WBC (4.8-10.8) K/uL RBC (4.40-5.90) Mil/uL Hgb (12.0-18.0) g/dL Hct (35.0-51.0) % MCV (80.0-94.0) fL MCH (27.0-31.0) pg MCHC (33.0-37.0) g/dL RDW (11.5-14.5) % Plt Count (130-400) K/uL MPV (7.2-11.7) fL Neut % (Auto) (50.0-75.0) % Lymph % (Auto) (20.0-40.0) % [place] % (Auto) (0.0-10.0) % Eos % (Auto) (0.0-4.0) % Baso % (Auto) (0.0-2.0) % Neut # (Auto) (1.8-7.0) K/uL Lymph # (Auto) (1.0-4.3) K/uL [place] # (Auto) (0.0-0.8) K/uL Eos # (Auto) (0.0-0.7) K/uL Baso # (Auto) (0.0-0.2) K/uL Sodium 149 H (132-148) mmol/L Potassium 4.3 (3.6-5.2) mmol/L Chloride 120 H (98-107) mmol/L Carbon Dioxide 19 L (22-30) mmol/L Anion Gap 15 (10-20) BUN 14 (9-20) mg/dL Creatinine 0.8 (0.8-1.5) mg/dL Est GFR ( Amer) > 60 Est GFR (Non-Af Amer) > 60 POC Glucose (mg/dL) 91 85 (65-110) mg/dL Random Glucose 89 (75-110) mg/dL Calcium 6.9 L (8.6-10.4) mg/dl Phosphorus 3.7 (2.5-4.5) mg/dL Magnesium 2.0 (1.6-2.3) mg/dL Total Bilirubin 4.0 H (0.2-1.3) mg/dL AST 32 (17-59) U/L ALT 8 L D (21-72) U/L Alkaline Phosphatase 63 (38-126) U/L Total Protein 6.1 L (6.3-8.3) g/dL Albumin 1.9 L (3.5-5.0) g/dL Globulin 4.2 H (2.2-3.9) gm/dL Albumin/Globulin Ratio 0.4 L (1.0-2.1) TB Test (QFT) Nil IU/mL TB Test Mitogen - Nil IU/mL TB Test TB - Nil IU/mL TB Test (QFT) (Negative) 09/05/17 09/05/17 09/04/17 Range/Units 06:00 05:04 23:54 WBC 8.3 (4.8-10.8) K/uL RBC 3.08 L (4.40-5.90) Mil/uL Hgb 8.7 L (12.0-18.0) g/dL Hct 26.1 L (35.0-51.0) % MCV 84.6 (80.0-94.0) fL MCH 28.2 (27.0-31.0) pg MCHC 33.4 (33.0-37.0) g/dL RDW 17.8 H (11.5-14.5) % Plt Count 195 (130-400) K/uL MPV 8.9 (7.2-11.7) fL Neut % (Auto) 60.3 (50.0-75.0) % Lymph % (Auto) 20.9 (20.0-40.0) % [place] % (Auto) 17.6 H (0.0-10.0) % Eos % (Auto) 0.4 (0.0-4.0) % Baso % (Auto) 0.8 (0.0-2.0) % Neut # (Auto) 5.0 (1.8-7.0) K/uL Lymph # (Auto) 1.7 (1.0-4.3) K/uL [place] # (Auto) 1.5 H (0.0-0.8) K/uL Eos # (Auto) 0.0 (0.0-0.7) K/uL Baso # (Auto) 0.1 (0.0-0.2) K/uL Sodium (132-148) mmol/L Potassium (3.6-5.2) mmol/L Chloride (98-107) mmol/L Carbon Dioxide (22-30) mmol/L Anion Gap (10-20) BUN (9-20) mg/dL Creatinine (0.8-1.5) mg/dL Est GFR ( Amer) Est GFR (Non-Af Amer) POC Glucose (mg/dL) 94 92 (65-110) mg/dL Random Glucose (75-110) mg/dL Calcium (8.6-10.4) mg/dl Phosphorus (2.5-4.5) mg/dL Magnesium (1.6-2.3) mg/dL Total Bilirubin (0.2-1.3) mg/dL AST (17-59) U/L ALT (21-72) U/L Alkaline Phosphatase (38-126) U/L Total Protein (6.3-8.3) g/dL Albumin (3.5-5.0) g/dL Globulin (2.2-3.9) gm/dL Albumin/Globulin Ratio (1.0-2.1) TB Test (QFT) Nil IU/mL TB Test Mitogen - Nil IU/mL TB Test TB - Nil IU/mL TB Test (QFT) (Negative) 09/04/17 09/02/17 Range/Units 17:55 07:29 WBC (4.8-10.8) K/uL RBC (4.40-5.90) Mil/uL Hgb (12.0-18.0) g/dL Hct (35.0-51.0) % MCV (80.0-94.0) fL MCH (27.0-31.0) pg MCHC (33.0-37.0) g/dL RDW (11.5-14.5) % Plt Count (130-400) K/uL MPV (7.2-11.7) fL Neut % (Auto) (50.0-75.0) % Lymph % (Auto) (20.0-40.0) % [place] % (Auto) (0.0-10.0) % Eos % (Auto) (0.0-4.0) % Baso % (Auto) (0.0-2.0) % Neut # (Auto) (1.8-7.0) K/uL Lymph # (Auto) (1.0-4.3) K/uL [place] # (Auto) (0.0-0.8) K/uL Eos # (Auto) (0.0-0.7) K/uL Baso # (Auto) (0.0-0.2) K/uL Sodium (132-148) mmol/L Potassium (3.6-5.2) mmol/L Chloride (98-107) mmol/L Carbon Dioxide (22-30) mmol/L Anion Gap (10-20) BUN (9-20) mg/dL Creatinine (0.8-1.5) mg/dL Est GFR ( Amer) Est GFR (Non-Af Amer) POC Glucose (mg/dL) 84 (65-110) mg/dL Random Glucose (75-110) mg/dL Calcium (8.6-10.4) mg/dl Phosphorus (2.5-4.5) mg/dL Magnesium (1.6-2.3) mg/dL Total Bilirubin (0.2-1.3) mg/dL AST (17-59) U/L ALT (21-72) U/L Alkaline Phosphatase (38-126) U/L Total Protein (6.3-8.3) g/dL Albumin (3.5-5.0) g/dL Globulin (2.2-3.9) gm/dL Albumin/Globulin Ratio (1.0-2.1) TB Test (QFT) Nil 0.09 IU/mL TB Test Mitogen - Nil <0.00 IU/mL TB Test TB - Nil 0.01 IU/mL TB Test (QFT) Indeterminate H (Negative) Laboratory Results - last 24 hr 09/02/17 09/04/17 09/04/17 07:29 17:55 23:54 WBC RBC Hgb Hct MCV MCH MCHC RDW Plt Count MPV Neut % (Auto) Lymph % (Auto) [place] % (Auto) Eos % (Auto) Baso % (Auto) Neut # (Auto) Lymph # (Auto) [place] # (Auto) Eos # (Auto) Baso # (Auto) Sodium Potassium Chloride Carbon Dioxide Anion Gap BUN Creatinine Est GFR ( Amer) Est GFR (Non-Af Amer) POC Glucose (mg/dL) 84 92 Random Glucose Calcium Phosphorus Magnesium Total Bilirubin AST ALT Alkaline Phosphatase Total Protein Albumin Globulin Albumin/Globulin Ratio TB Test (QFT) Nil 0.09 TB Test Mitogen - Nil <0.00 TB Test TB - Nil 0.01 TB Test (QFT) Indeterminate H 09/05/17 09/05/17 09/05/17 05:04 06:00 06:00 WBC 8.3 RBC 3.08 L Hgb 8.7 L Hct 26.1 L MCV 84.6 MCH 28.2 MCHC 33.4 RDW 17.8 H Plt Count 195 MPV 8.9 Neut % (Auto) 60.3 Lymph % (Auto) 20.9 [place] % (Auto) 17.6 H Eos % (Auto) 0.4 Baso % (Auto) 0.8 Neut # (Auto) 5.0 Lymph # (Auto) 1.7 [place] # (Auto) 1.5 H Eos # (Auto) 0.0 Baso # (Auto) 0.1 Sodium 149 H Potassium 4.3 Chloride 120 H Carbon Dioxide 19 L Anion Gap 15 BUN 14 Creatinine 0.8 Est GFR ( Amer) > 60 Est GFR (Non-Af Amer) > 60 POC Glucose (mg/dL) 94 Random Glucose 89 Calcium 6.9 L Phosphorus 3.7 Magnesium 2.0 Total Bilirubin 4.0 H AST 32 ALT 8 L D Alkaline Phosphatase 63 Total Protein 6.1 L Albumin 1.9 L Globulin 4.2 H Albumin/Globulin Ratio 0.4 L TB Test (QFT) Nil TB Test Mitogen - Nil TB Test TB - Nil TB Test (QFT) 09/05/17 09/05/17 11:18 12:26 WBC RBC Hgb Hct MCV MCH MCHC RDW Plt Count MPV Neut % (Auto) Lymph % (Auto) [place] % (Auto) Eos % (Auto) Baso % (Auto) Neut # (Auto) Lymph # (Auto) [place] # (Auto) Eos # (Auto) Baso # (Auto) Sodium Potassium Chloride Carbon Dioxide Anion Gap BUN Creatinine Est GFR ( Amer) Est GFR (Non-Af Amer) POC Glucose (mg/dL) 85 91 Random Glucose Calcium Phosphorus Magnesium Total Bilirubin AST ALT Alkaline Phosphatase Total Protein Albumin Globulin Albumin/Globulin Ratio TB Test (QFT) Nil TB Test Mitogen - Nil TB Test TB - Nil TB Test (QFT) Fingerstick Blood Sugar Results: 91 Assessment/Plan (1) Respiratory failure Assessment and plan: Patient with acute respiratory failure. On ventilator. We'll continue the CPAP trial. Patient possibly has a cavitary lung disease. On antibiotic. We will continue the current treatment and will follow the patient Current Visit: Yes Status: Acute (2) Acute hypernatremia Current Visit: No Status: Acute (3) Cellulitis of right foot Current Visit: No Status: Acute
[2017-09-06] MEDS: Albuterol-Ipratrop 3 mg / 0.5 (3 ml) UD INH SCH ×4 (01:21→19:42)
--- NOTE | 2017-09-06 04:54 | CP.PCM.PN ---
Subjective - Date & Time of Evaluation Date of Evaluation: 09/05/17 Time of Evaluation: 20:00 - Subjective Subjective: Pt seen and examined, is still on ventilator, unable to wean, might need trach Objective - Vital Signs/Intake and Output Vital Signs (last 24 hours): Temp Pulse Resp BP Pulse Ox 98.4 F 82 24 94/52 L 100 09/06/17 00:00 09/06/17 04:00 09/06/17 04:00 09/06/17 04:00 09/06/17 04:00 Intake and Output: 09/05/17 09/06/17 18:59 06:59 Intake Total 840 600 Output Total 305 25 Balance 535 575 - Medications Medications: Current Medications Acetaminophen (Tylenol 650 Mg Supp) 650 mg VT Q4 PRN PRN Reason: Fever >100.4 F Last Admin: 09/05/17 12:32 Dose: 650 mg Albuterol/Ipratropium (Duoneb 3 Mg/0.5 Mg (3 Ml) Ud) 3 ml INH RQ6 [facility] Last Admin: 09/06/17 01:21 Dose: 3 ml Amantadine HCl (Symmetrel) 100 mg PO DAILY [facility] Last Admin: 09/05/17 09:51 Dose: Not Given Bisacodyl (Dulcolax) 10 mg VT ONCE PRN PRN Reason: consipation Carbamazepine (Tegretol) 100 mg PEG Q8 [facility] Last Admin: 09/05/17 21:50 Dose: 100 mg Enoxaparin Sodium (Lovenox) 40 mg SC DAILY [facility] Last Admin: 09/05/17 09:00 Dose: 40 mg Metronidazole (Flagyl) 500 mg in 100 mls @ 100 mls/hr IVPB Q8 AMY PRN Reason: Protocol Last Admin: 09/05/17 21:50 Dose: 100 mls/hr Micafungin Sodium 100 mg/ (Sodium Chloride) 100 mls @ 100 mls/hr IV Q24H AMY PRN Reason: Protocol Last Admin: 09/05/17 15:03 Dose: 100 mls/hr Lorazepam (Ativan) 1 mg IVP Q4H PRN PRN Reason: Anxiety Last Admin: 09/03/17 10:41 Dose: 1 mg Moxifloxacin HCl (Avelox) 400 mg PO Q24H [facility] Last Admin: 09/05/17 15:07 Dose: 400 mg Pantoprazole Sodium (Protonix Susp) 40 mg PO DAILY [facility] Last Admin: 09/05/17 09:01 Dose: 40 mg Rosuvastatin Calcium (Crestor) 5 mg PO HS [facility] Last Admin: 09/05/17 21:50 Dose: 5 mg Valproate Sodium (Depakene Oral Soln) 250 mg PEG Q12 [facility] Last Admin: 09/05/17 21:50 Dose: 250 mg - Labs Labs: 09/05/17 06:00 09/05/17 06:00 PT 16.5 SECONDS (9.7-12.2) H 08/31/17 06:36 INR 1.5 08/31/17 06:36 APTT 33 SECONDS (21-34) 08/31/17 06:36 - Constitutional Appears: No Acute Distress - Head Exam Head Exam: ATRAUMATIC, NORMAL INSPECTION, NORMOCEPHALIC - Eye Exam Eye Exam: EOMI, Normal appearance, PERRL Pupil Exam: NORMAL ACCOMODATION, PERRL - Respiratory Exam Respiratory Exam: Clear to Ausculation Bilateral, NORMAL BREATHING PATTERN - Cardiovascular Exam Cardiovascular Exam: REGULAR RHYTHM, +S1, +S2. absent: Murmur - GI/Abdominal Exam GI & Abdominal Exam: Soft, Normal Bowel Sounds. absent: Tenderness Assessment and Plan (1) Sepsis Status: Acute (2) Fever Status: Acute (3) Seizure disorder Status: Acute (4) COPD (chronic obstructive pulmonary disease) Status: Chronic (5) PVD (peripheral vascular disease) Status: Chronic (6) Respiratory failure Status: Acute
[2017-09-06] MEDS: carBAMazepine Chew Tab 100 MG Chew Tab PEG SCH ×3 (05:10→21:36)
[2017-09-06] MEDS: metroNIDAZOLE IV 500 mg/100 ml 500 MG/100 ML BAG IVPB SCH ×3 (05:10→21:36)
[2017-09-06 06:29] LABS: BASO % 0.3 % (0.0-2.0); EOS # 0.1 K/uL (0.0-0.7); EOS % 0.6 % (0.0-4.0); HEMOGLOBIN 7.8 g/dL (12.0-18.0); LYMPH # 1.6 K/uL (1.0-4.3); LYMPH % 19.8 % (20.0-40.0); MEAN CELL VOLUME 83.9 fL (80.0-94.0); MEAN CORPUSCULAR HGB CONC 33.3 g/dL (33.0-37.0); MEAN PLATELET VOLUME 8.7 fL (7.2-11.7); MONO # 1.7 K/uL (0.0-0.8); MONO % 20.8 % (0.0-10.0); NEUT # 4.8 K/uL (1.8-7.0); NEUT % 58.5 % (50.0-75.0); PLATELET COUNT 205 K/uL (130-400); RED CELL DISTRIBUTION WIDTH 17.7 % (11.5-14.5); WHITE BLOOD COUNT 8.1 K/uL (4.8-10.8)
[2017-09-06 06:46] LABS: ALB/GLOB RATIO 0.4 (1.0-2.1); ALBUMIN 1.8 g/dL (3.5-5.0); ALT/SGPT 8 U/L (21-72); AST/SGOT 34 U/L (17-59); BLOOD UREA NITROGEN 20 mg/dL (9-20); CALCIUM 6.8 mg/dl (8.6-10.4); GFR AFRICAN-AMERICAN > 60; GFR NON-AFRICAN AMERICAN > 60
--- NOTE | 2017-09-06 07:13 | CP.PCM.PN ---
Subjective - Date & Time of Evaluation Date of Evaluation: 09/06/17 Time of Evaluation: 07:13 - Subjective Subjective: Mr. Cordero was seen and examined at the bedside in ICU. He remains on mechanical ventilator on PRVC mode. Pupils sluggishly reactive 3 mm, responsive to pain stimuli, and opens eyes spontaneously.He has episode of restlessness with bilateral hand mittens. There was no untoward events overnight. Objective - Vital Signs/Intake and Output Vital Signs (last 24 hours): Temp Pulse Resp BP Pulse Ox 98.8 F 85 29 H 99/52 L 100 09/06/17 04:00 09/06/17 05:00 09/06/17 05:00 09/06/17 05:00 09/06/17 05:00 Intake and Output: 09/06/17 09/06/17 06:59 18:59 Intake Total 600 Output Total 25 Balance 575 - Medications Medications: Current Medications Acetaminophen (Tylenol 650 Mg Supp) 650 mg VT Q4 PRN PRN Reason: Fever >100.4 F Last Admin: 09/05/17 12:32 Dose: 650 mg Albuterol/Ipratropium (Duoneb 3 Mg/0.5 Mg (3 Ml) Ud) 3 ml INH RQ6 AMY Last Admin: 09/06/17 01:21 Dose: 3 ml Amantadine HCl (Symmetrel) 100 mg PO DAILY [facility] Last Admin: 09/05/17 09:51 Dose: Not Given Bisacodyl (Dulcolax) 10 mg VT ONCE PRN PRN Reason: consipation Carbamazepine (Tegretol) 100 mg PEG Q8 [facility] Last Admin: 09/06/17 05:10 Dose: 100 mg Enoxaparin Sodium (Lovenox) 40 mg SC DAILY [facility] Last Admin: 09/05/17 09:00 Dose: 40 mg Metronidazole (Flagyl) 500 mg in 100 mls @ 100 mls/hr IVPB Q8 AMY PRN Reason: Protocol Last Admin: 09/06/17 05:10 Dose: 100 mls/hr Micafungin Sodium 100 mg/ (Sodium Chloride) 100 mls @ 100 mls/hr IV Q24H AMY PRN Reason: Protocol Last Admin: 09/05/17 15:03 Dose: 100 mls/hr Lorazepam (Ativan) 1 mg IVP Q4H PRN PRN Reason: Anxiety Last Admin: 09/03/17 10:41 Dose: 1 mg Moxifloxacin HCl (Avelox) 400 mg PO Q24H [facility] Last Admin: 09/05/17 15:07 Dose: 400 mg Pantoprazole Sodium (Protonix Susp) 40 mg PO DAILY [facility] Last Admin: 09/05/17 09:01 Dose: 40 mg Rosuvastatin Calcium (Crestor) 5 mg PO HS [facility] Last Admin: 09/05/17 21:50 Dose: 5 mg Valproate Sodium (Depakene Oral Soln) 250 mg PEG Q12 [facility] Last Admin: 09/05/17 21:50 Dose: 250 mg - Labs Labs: 09/06/17 06:16 09/06/17 06:17 PT 16.5 SECONDS (9.7-12.2) H 08/31/17 06:36 INR 1.5 08/31/17 06:36 APTT 33 SECONDS (21-34) 08/31/17 06:36 - Constitutional Appears: No Acute Distress - Head Exam Head Exam: NORMAL INSPECTION - Eye Exam Pupil Exam: Miosis, PERRL Additional comments: 3 mm. - Neurological Exam Neuro motor strength exam: Left Upper Extremity: 3, Right Upper Extremity: 3, Left Lower Extremity: 3, Right Lower Extremity: 2/1 Additional comments: Neurological unchanged from previous examination. Assessment and Plan (1) Toxic metabolic encephalopathy Assessment & Plan: Case discussed with Dr. Whitley, continue all current medical regimen. Recommend head of elevated at least 30 degrees, hydration Status: Acute
[2017-09-06 08:26] LABS: ANISOCYTOSIS SLIGHT; BANDS 4 % (0-2); HYPOCHROMIC SLIGHT; LYMPHOCYTE 18 % (20-40); MONOCYTE 20 % (0-10); NEUTROPHIL 58 % (50-75); PLATELET ESTIMATE NORMAL (NORMAL); POIKILOCYTOSIS SLIGHT; TOTAL CELLS COUNTED 100
[2017-09-06 08:27] LABS: GIANT PLATELETS PRESENT; LARGE PLATELETS PRESENT; TARGET CELLS SLIGHT
[2017-09-06] MEDS ORDERED: Potassium Chloride 20 mEq/15 ml LIQ UD PO ONE (10:00)
[2017-09-06] MEDS: Valproic Acid 250 mg/5 ml UD Cup PEG SCH ×3 (10:35→21:36)
[2017-09-06] MEDS: Enoxaparin 40 mg Syringe SC SCH ×2 (10:35→10:43)
[2017-09-06] MEDS: Pantoprazole 40 mg Susp UD PO SCH ×2 (10:36→10:42)
[2017-09-06] MEDS: Amantadine 50 mg/5 ml Syrup (473 ml) PO SCH ×2 (10:37→10:42)
--- NOTE | 2017-09-06 12:16 | CP.CCUPN ---
"CCU Subjective - Physician Review Subjective (Free Text): Patient was seen and examined at bedside. Remains on PRVC continued Rate 18, FiO2 40%, TV 400, PEEP 5. Patient remains sugglish, responds to pain. ROS unattainable. Patient is for tracheostomy 09/07/17. Critical Care Time Spent (in minutes): 20 CCU Objective - Vital Signs / Intake & Output Vital Signs (Last 4 hours): Vital Signs Pulse Resp BP Pulse Ox 09/06/17 10:00 92 H 29 H 100/59 L 100 09/06/17 09:00 89 25 H 93/47 L 100 Intake and Output (Last 8hrs): Intake & Output 09/05/17 09/06/17 09/06/17 22:59 06:59 14:59 Intake Total 680 580 0 Output Total 140 450 110 Balance 540 130 -110 Weight 134 lb 7.712 oz Intake: Intake, IV Amount 200 100 Left Distal Port Internal 100 100 Jugular Left Medial Port Internal 100 Jugular Oral 160 400 Tube Feeding 320 80 0 Output: Urine 140 350 110 Urethral (Brown) 140 350 110 Stool 100 Other: # Bowel Movements 1 1 - Physical Exam Head: Positive for: Atraumatic, Normocephalic Pupils: Positive for: Sluggish Mouth: Positive for: Dry. Negative for: Moist Mucous Membranes Respiratory/Chest: Positive for: Clear to Auscultation, Decreased Breath Sounds (RUL ), Other (Intubated) Cardiovascular: Positive for: Normal S1, S2. Negative for: Tachycardic Abdomen: Positive for: Normal Bowel Sounds. Negative for: Distention Neurological: Negative for: GCS=15 (10T) Skin: Positive for: Warm, Dry, Normal Color. Negative for: Rashes Psychiatric: Negative for: Alert - Medications Active Medications: Active Medications Generic Name Dose Route Start Last Admin Trade Name Freq PRN Reason Stop Dose Admin Acetaminophen 650 mg 08/25/17 17:20 09/05/17 12:32 Tylenol 650 Mg Supp AL 650 mg Q4 PRN Administration Fever >100.4 F Albuterol/Ipratropium 3 ml 08/28/17 08:00 09/06/17 07:37 Duoneb 3 Mg/0.5 Mg (3 Ml) Ud INH 3 ml RQ6 MAY Administration Amantadine HCl 100 mg 09/05/17 10:00 09/06/17 10:42 Symmetrel PO 100 mg DAILY AMY Administration Bisacodyl 10 mg 08/29/17 08:30 Dulcolax AL ONCE PRN consipation Carbamazepine 100 mg 08/24/17 22:00 09/06/17 05:10 Tegretol PEG 100 mg Q8 AMY Administration Enoxaparin Sodium 40 mg 08/24/17 18:00 09/06/17 10:43 Lovenox SC 40 mg DAILY AMY Administration Metronidazole 500 mg in 100 mls @ 100 mls/hr 08/31/17 14:00 09/06/17 05:10 Flagyl IVPB 100 mls/hr Q8 AMY Administration Protocol Micafungin Sodium 100 mg/ 100 mls @ 100 mls/hr 09/01/17 16:00 09/05/17 15:03 Sodium Chloride IV 100 mls/hr Q24H AMY Administration Protocol Potassium Chloride 20 meq in 100 mls @ 50 mls/hr 09/06/17 11:30 09/06/17 11: 30 Potassium Chloride 20 Meq/100 Ml IVPB 09/06/17 13:29 50 mls/hr ONCE ONE Administration Lorazepam 1 mg 09/03/17 01:11 09/03/17 10:41 Ativan IVP 1 mg Q4H PRN Administration Anxiety Moxifloxacin HCl 400 mg 09/01/17 15:00 09/05/17 15:07 Avelox PO 400 mg Q24H AMY Administration Pantoprazole Sodium 40 mg 08/29/17 10:00 09/06/17 10:42 Protonix Susp PO 40 mg DAILY AMY Administration Rosuvastatin Calcium 5 mg 08/24/17 22:00 09/05/17 21:50 Crestor PO 5 mg HS AMY Administration Valproate Sodium 250 mg 09/02/17 22:00 09/06/17 10:42 Depakene Oral Soln PEG 250 mg Q12 AMY Administration - Patient Studies Lab Studies: Microbiology Studies 08/31/17 10:00 Blood Culture - Final Blood NO GROWTH AFTER 5 DAYS Gram Stain - Final TEST NOT PERFORMED 08/31/17 10:30 Blood Culture - Final Blood NO GROWTH AFTER 5 DAYS Gram Stain - Final TEST NOT PERFORMED Lab Studies 09/06/17 09/06/17 09/06/17 Range/Units 06:17 06:16 05:50 WBC 8.1 (4.8-10.8) K/uL RBC 2.80 L (4.40-5.90) Mil/uL Hgb 7.8 L (12.0-18.0) g/dL Hct 23.5 L (35.0-51.0) % MCV 83.9 (80.0-94.0) fL MCH 28.0 (27.0-31.0) pg MCHC 33.3 (33.0-37.0) g/dL RDW 17.7 H (11.5-14.5) % Plt Count 205 (130-400) K/uL MPV 8.7 (7.2-11.7) fL Neut % (Auto) 58.5 (50.0-75.0) % Lymph % (Auto) 19.8 L (20.0-40.0) % [place] % (Auto) 20.8 H (0.0-10.0) % Eos % (Auto) 0.6 (0.0-4.0) % Baso % (Auto) 0.3 (0.0-2.0) % Neut # (Auto) 4.8 (1.8-7.0) K/uL Lymph # (Auto) 1.6 (1.0-4.3) K/uL [place] # (Auto) 1.7 H (0.0-0.8) K/uL Eos # (Auto) 0.1 (0.0-0.7) K/uL Baso # (Auto) 0.0 (0.0-0.2) K/uL Neutrophils % (Manual) 58 (50-75) % Band Neutrophils % 4 H (0-2) % Lymphocytes % (Manual) 18 L (20-40) % Monocytes % (Manual) 20 H (0-10) % Platelet Estimate Normal (NORMAL) Large Platelets Present Giant Platelets Present Hypochromasia (manual) Slight Poikilocytosis (manual Slight Anisocytosis (manual) Slight Target Cells Slight Sodium 148 (132-148) mmol/L Potassium 3.5 L (3.6-5.2) mmol/L Chloride 117 H (98-107) mmol/L Carbon Dioxide 22 (22-30) mmol/L Anion Gap 12 (10-20) BUN 20 (9-20) mg/dL Creatinine 0.8 (0.8-1.5) mg/dL Est GFR ( Amer) > 60 Est GFR (Non-Af Amer) > 60 POC Glucose (mg/dL) 92 (65-110) mg/dL Random Glucose 74 L (75-110) mg/dL Calcium 6.8 L (8.6-10.4) mg/dl Phosphorus 3.9 (2.5-4.5) mg/dL Magnesium 1.9 (1.6-2.3) mg/dL Total Bilirubin 4.4 H (0.2-1.3) mg/dL AST 34 (17-59) U/L ALT 8 L (21-72) U/L Alkaline Phosphatase 56 (38-126) U/L Total Protein 6.0 L (6.3-8.3) g/dL Albumin 1.8 L (3.5-5.0) g/dL Globulin 4.3 H (2.2-3.9) gm/dL Albumin/Globulin Ratio 0.4 L (1.0-2.1) TB Test (QFT) Nil IU/mL TB Test Mitogen - Nil IU/mL TB Test TB - Nil IU/mL TB Test (QFT) (Negative) 09/05/17 09/05/17 09/05/17 Range/Units 23:47 18:00 12:26 WBC (4.8-10.8) K/uL RBC (4.40-5.90) Mil/uL Hgb (12.0-18.0) g/dL Hct (35.0-51.0) % MCV (80.0-94.0) fL MCH (27.0-31.0) pg MCHC (33.0-37.0) g/dL RDW (11.5-14.5) % Plt Count (130-400) K/uL MPV (7.2-11.7) fL Neut % (Auto) (50.0-75.0) % Lymph % (Auto) (20.0-40.0) % [place] % (Auto) (0.0-10.0) % Eos % (Auto) (0.0-4.0) % Baso % (Auto) (0.0-2.0) % Neut # (Auto) (1.8-7.0) K/uL Lymph # (Auto) (1.0-4.3) K/uL [place] # (Auto) (0.0-0.8) K/uL Eos # (Auto) (0.0-0.7) K/uL Baso # (Auto) (0.0-0.2) K/uL Neutrophils % (Manual) (50-75) % Band Neutrophils % (0-2) % Lymphocytes % (Manual) (20-40) % Monocytes % (Manual) (0-10) % Platelet Estimate (NORMAL) Large Platelets Giant Platelets Hypochromasia (manual) Poikilocytosis (manual Anisocytosis (manual) Target Cells Sodium (132-148) mmol/L Potassium (3.6-5.2) mmol/L Chloride (98-107) mmol/L Carbon Dioxide (22-30) mmol/L Anion Gap (10-20) BUN (9-20) mg/dL Creatinine (0.8-1.5) mg/dL Est GFR ( Amer) Est GFR (Non-Af Amer) POC Glucose (mg/dL) 87 73 91 (65-110) mg/dL Random Glucose (75-110) mg/dL Calcium (8.6-10.4) mg/dl Phosphorus (2.5-4.5) mg/dL Magnesium (1.6-2.3) mg/dL Total Bilirubin (0.2-1.3) mg/dL AST (17-59) U/L ALT (21-72) U/L Alkaline Phosphatase (38-126) U/L Total Protein (6.3-8.3) g/dL Albumin (3.5-5.0) g/dL Globulin (2.2-3.9) gm/dL Albumin/Globulin Ratio (1.0-2.1) TB Test (QFT) Nil IU/mL TB Test Mitogen - Nil IU/mL TB Test TB - Nil IU/mL TB Test (QFT) (Negative) 09/02/17 Range/Units 07:29 WBC (4.8-10.8) K/uL RBC (4.40-5.90) Mil/uL Hgb (12.0-18.0) g/dL Hct (35.0-51.0) % MCV (80.0-94.0) fL MCH (27.0-31.0) pg MCHC (33.0-37.0) g/dL RDW (11.5-14.5) % Plt Count (130-400) K/uL MPV (7.2-11.7) fL Neut % (Auto) (50.0-75.0) % Lymph % (Auto) (20.0-40.0) % [place] % (Auto) (0.0-10.0) % Eos % (Auto) (0.0-4.0) % Baso % (Auto) (0.0-2.0) % Neut # (Auto) (1.8-7.0) K/uL Lymph # (Auto) (1.0-4.3) K/uL [place] # (Auto) (0.0-0.8) K/uL Eos # (Auto) (0.0-0.7) K/uL Baso # (Auto) (0.0-0.2) K/uL Neutrophils % (Manual) (50-75) % Band Neutrophils % (0-2) % Lymphocytes % (Manual) (20-40) % Monocytes % (Manual) (0-10) % Platelet Estimate (NORMAL) Large Platelets Giant Platelets Hypochromasia (manual) Poikilocytosis (manual Anisocytosis (manual) Target Cells Sodium (132-148) mmol/L Potassium (3.6-5.2) mmol/L Chloride (98-107) mmol/L Carbon Dioxide (22-30) mmol/L Anion Gap (10-20) BUN (9-20) mg/dL Creatinine (0.8-1.5) mg/dL Est GFR ( Amer) Est GFR (Non-Af Amer) POC Glucose (mg/dL) (65-110) mg/dL Random Glucose (75-110) mg/dL Calcium (8.6-10.4) mg/dl Phosphorus (2.5-4.5) mg/dL Magnesium (1.6-2.3) mg/dL Total Bilirubin (0.2-1.3) mg/dL AST (17-59) U/L ALT (21-72) U/L Alkaline Phosphatase (38-126) U/L Total Protein (6.3-8.3) g/dL Albumin (3.5-5.0) g/dL Globulin (2.2-3.9) gm/dL Albumin/Globulin Ratio (1.0-2.1) TB Test (QFT) Nil 0.09 IU/mL TB Test Mitogen - Nil <0.00 IU/mL TB Test TB - Nil 0.01 IU/mL TB Test (QFT) Indeterminate H (Negative) Laboratory Results - last 24 hr 09/02/17 09/05/17 09/05/17 07:29 12:26 18:00 WBC RBC Hgb Hct MCV MCH MCHC RDW Plt Count MPV Neut % (Auto) Lymph % (Auto) [place] % (Auto) Eos % (Auto) Baso % (Auto) Neut # (Auto) Lymph # (Auto) [place] # (Auto) Eos # (Auto) Baso # (Auto) Neutrophils % (Manual) Band Neutrophils % Lymphocytes % (Manual) Monocytes % (Manual) Platelet Estimate Large Platelets Giant Platelets Hypochromasia (manual) Poikilocytosis (manual Anisocytosis (manual) Target Cells Sodium Potassium Chloride Carbon Dioxide Anion Gap BUN Creatinine Est GFR ( Amer) Est GFR (Non-Af Amer) POC Glucose (mg/dL) 91 73 Random Glucose Calcium Phosphorus Magnesium Total Bilirubin AST ALT Alkaline Phosphatase Total Protein Albumin Globulin Albumin/Globulin Ratio TB Test (QFT) Nil 0.09 TB Test Mitogen - Nil <0.00 TB Test TB - Nil 0.01 TB Test (QFT) Indeterminate H 09/05/17 09/06/17 09/06/17 23:47 05:50 06:16 WBC 8.1 RBC 2.80 L Hgb 7.8 L Hct 23.5 L MCV 83.9 MCH 28.0 MCHC 33.3 RDW 17.7 H Plt Count 205 MPV 8.7 Neut % (Auto) 58.5 Lymph % (Auto) 19.8 L [place] % (Auto) 20.8 H Eos % (Auto) 0.6 Baso % (Auto) 0.3 Neut # (Auto) 4.8 Lymph # (Auto) 1.6 [place] # (Auto) 1.7 H Eos # (Auto) 0.1 Baso # (Auto) 0.0 Neutrophils % (Manual) 58 Band Neutrophils % 4 H Lymphocytes % (Manual) 18 L Monocytes % (Manual) 20 H Platelet Estimate Normal Large Platelets Present Giant Platelets Present Hypochromasia (manual) Slight Poikilocytosis (manual Slight Anisocytosis (manual) Slight Target Cells Slight Sodium Potassium Chloride Carbon Dioxide Anion Gap BUN Creatinine Est GFR ( Amer) Est GFR (Non-Af Amer) POC Glucose (mg/dL) 87 92 Random Glucose Calcium Phosphorus Magnesium Total Bilirubin AST ALT Alkaline Phosphatase Total Protein Albumin Globulin Albumin/Globulin Ratio TB Test (QFT) Nil TB Test Mitogen - Nil TB Test TB - Nil TB Test (QFT) 09/06/17 06:17 WBC RBC Hgb Hct MCV MCH MCHC RDW Plt Count MPV Neut % (Auto) Lymph % (Auto) [place] % (Auto) Eos % (Auto) Baso % (Auto) Neut # (Auto) Lymph # (Auto) [place] # (Auto) Eos # (Auto) Baso # (Auto) Neutrophils % (Manual) Band Neutrophils % Lymphocytes % (Manual) Monocytes % (Manual) Platelet Estimate Large Platelets Giant Platelets Hypochromasia (manual) Poikilocytosis (manual Anisocytosis (manual) Target Cells Sodium 148 Potassium 3.5 L Chloride 117 H Carbon Dioxide 22 Anion Gap 12 BUN 20 Creatinine 0.8 Est GFR ( Amer) > 60 Est GFR (Non-Af Amer) > 60 POC Glucose (mg/dL) Random Glucose 74 L Calcium 6.8 L Phosphorus 3.9 Magnesium 1.9 Total Bilirubin 4.4 H AST 34 ALT 8 L Alkaline Phosphatase 56 Total Protein 6.0 L Albumin 1.8 L Globulin 4.3 H Albumin/Globulin Ratio 0.4 L TB Test (QFT) Nil TB Test Mitogen - Nil TB Test TB - Nil TB Test (QFT) Fingerstick Blood Sugar Results: 92 Results Reviewed to Date: Yes Critical Care Progress Note - Ventilator Checklist PUD Prophalyxis: Yes DVT Prophylaxis: Yes - Vent Settings MODE:: PRVC TIDAL VOLUME:: 400 RESP RATE:: 18 FIO2:: 40 PEEP:: 5 - Extremities/Vascular Insertion Site: Internal Jugular Vein (R) Does the Patient have a Brown Catheter?: Yes - Restraints Justification for Restraints: High risk for self extubation - Prophylaxis GI Prophylaxis GI: PPI - Prophylaxis DVT Prophylaxis DVT: Lovenox - Nutrition Nutrition: Nutrition Category Date Time Status NPO Diet [DIET] Diets 09/07/17 Breakfast Active Assessment/Plan - Assessment and Plan (Free Text) Assessment: 77 year old male with PMHx of Arthritis, Asthma, COPD, Severe Dementia, HTN, Seizures, TIA with PEG, and Right AKA presents from correction due to fever. Admitted to ICU, intubated due to respiratory failure. Code Sepsis 2/2 Mycoplasma Pneumonia 08/27/17. S/P bronchoscopy 09/03/17. For Tracheostomy 09/07/17. Plan: Neuro: GCS: 10T Sedation: None A: Severe Dementia, Hx of Seizure Home Carbamazepine 100mg Q8 | Home Valproic Acid 250mg PEG QID Changed to Q12H Amantadine 100mg PO Daily per Neuro Cardio: A: HTN, Hx of TIA, HLD Crestor 5mg PO HS Pulm: A: Hypoxic Res. Failure, Asthma, COPD, Mycoplasma Pneumonia + 08/27/17 CXR (Admission): Stable postsurgical changes in the right lung with low lung volume and shift of mediastinal to the right. No acute findings. CXR (09/03): No significant interval change in right upper lobe cystic changes/ bulla and right pleural effusion. Stable position of endotracheal tube. S/P bronchoscopy 09/03/17 - pending results from bronchial washings Tracheostomy scheduled for 09/07/[address] Celestine Monae Schedule Wean Fi02 as tolerated Daily CPAP trials Endo A: Hypoglycemia (Stable) GI: A: Enterocolitis CT chest Abd/Pelvis (08/27): Enterocolits; ascities;mild bladder wall thickening with air in the bladder, iatrogenic versus infectious. -Flagyl started 08/31/17 A: Elevated T. Bili - Continue to monitor, unremarkable on CT Scan Renal: A: Hypocalcemia, corrected calcium - within normal limits, Hypokalemia Replace electrolytes PRN Heme/Onc: A: Normocytic Anemia HgB stable at new baseline of low 8s Transfused 1 unit throughout admission Stool Occult Blood - NEGATIVE ID A: Code Sepsis, Leukocytosis (Resolved) Cultures (08/24, 08/31) Blood - NEGATIVE to date | Urine - NEGATIVE to date | Sputum - Normal Oral Kim | MRSA - NEGATIVE Wound Cultures - Coagulase Neg Staph, Likely normal Skin Kim ID on Consult, Recs Appreciated - Dr. Muñoz Mycoplasma Pneumonia IgM - POSITIVE, Patient has chronic Mycoplasma IgM. This was positive on 08/03/17 Antibiotics: Moxifloxacin 400mg Q24H and Micafungin 100mg Q24H started on 09/01, Flagyl 500mg Q8H started 08/31 AFB Sputum Culture x 2 negative, Aspergillus AB and Antigen, H. Galactomannan Antigen, Histoplasma AB, Quant Gold - PENDING - spiked 101F 09/05/17 at 12:30pm - was not suh cultured - repeated all cultures - follow up Integumentary A: Left Lower ext wounds Wound Care Prophylaxis Protonix Lovenox (Held) due to tracheostomy 09/07/17 Diet: Tube Feeding - Jevity 1.5 Lines: Right IJ Central Line will be switched to PICC line, consent retrieved from Elizabet legal guardian [phone] DW with ICU Attending - Dr. Sreedhar Xie, PGY-1"
[2017-09-06 12:32] LABS: SQUAMOUS EPITHIAL < 1 /hpf (0-5); URINE BACTERIA RARE (<OCC); URINE BILIRUBIN NEGATIVE (NEGATIVE); URINE BLOOD NEGATIVE (NEGATIVE); URINE CLARITY Clear (Clear); URINE COLOR Amber (YELLOW); URINE GLUCOSE (UA) NORMAL (Normal); URINE LEUKOCYTE ESTERASE NEG Leu/uL (Negative); URINE PROTEIN 2+ mg/dL (NEGATIVE); URINE UROBILINOGEN NORMAL mg/dL (0.2-1.0)
--- NOTE | 2017-09-06 14:49 | CP.PCM.PN ---
Subjective - Date & Time of Evaluation Date of Evaluation: 09/06/17 Time of Evaluation: 14:46 - Subjective Subjective: SURGERY NOTE FOR DR. SHEN 77M seen and examined at bedside. Patient intubated, not tolerating weaning trials. Multiple attempts have been made. Objective - Vital Signs/Intake and Output Vital Signs (last 24 hours): Temp Pulse Resp BP Pulse Ox 100.8 F H 99 H 28 H 95/48 L 97 09/06/17 12:00 09/06/17 14:00 09/06/17 14:00 09/06/17 14:00 09/06/17 14:00 Intake and Output: 09/06/17 09/06/17 06:59 18:59 Intake Total 1000 580 Output Total 475 190 Balance 525 390 - Medications Medications: Current Medications Acetaminophen (Tylenol 650 Mg Supp) 650 mg DC Q4 PRN PRN Reason: Fever >100.4 F Last Admin: 09/05/17 12:32 Dose: 650 mg Albuterol/Ipratropium (Duoneb 3 Mg/0.5 Mg (3 Ml) Ud) 3 ml INH RQ6 AMY Last Admin: 09/06/17 13:21 Dose: 3 ml Amantadine HCl (Symmetrel) 100 mg PO DAILY AMY Last Admin: 09/06/17 10:42 Dose: 100 mg Bisacodyl (Dulcolax) 10 mg DC ONCE PRN PRN Reason: consipation Carbamazepine (Tegretol) 100 mg PEG Q8 AMY Last Admin: 09/06/17 13:57 Dose: 100 mg Enoxaparin Sodium (Lovenox) 40 mg SC DAILY AMY Last Admin: 09/06/17 10:43 Dose: 40 mg Metronidazole (Flagyl) 500 mg in 100 mls @ 100 mls/hr IVPB Q8 AMY PRN Reason: Protocol Last Admin: 09/06/17 13:57 Dose: 100 mls/hr Micafungin Sodium 100 mg/ (Sodium Chloride) 100 mls @ 100 mls/hr IV Q24H AMY PRN Reason: Protocol Last Admin: 09/05/17 15:03 Dose: 100 mls/hr Lorazepam (Ativan) 1 mg IVP Q4H PRN PRN Reason: Anxiety Last Admin: 09/03/17 10:41 Dose: 1 mg Moxifloxacin HCl (Avelox) 400 mg PO Q24H [facility] Last Admin: 09/06/17 13:59 Dose: 400 mg Pantoprazole Sodium (Protonix Susp) 40 mg PO DAILY [facility] Last Admin: 09/06/17 10:42 Dose: 40 mg Rosuvastatin Calcium (Crestor) 5 mg PO HS [facility] Last Admin: 09/05/17 21:50 Dose: 5 mg Valproate Sodium (Depakene Oral Soln) 250 mg PEG Q12 [facility] Last Admin: 09/06/17 10:42 Dose: 250 mg - Labs Labs: 09/06/17 06:16 09/06/17 06:17 PT 16.5 SECONDS (9.7-12.2) H 08/31/17 06:36 INR 1.5 08/31/17 06:36 APTT 33 SECONDS (21-34) 08/31/17 06:36 - Constitutional Appears: Other (intubated, PEG in place) - Respiratory Exam Respiratory Exam: NORMAL BREATHING PATTERN Additional comments: Intubated - Cardiovascular Exam Cardiovascular Exam: REGULAR RHYTHM, +S1, +S2 - GI/Abdominal Exam GI & Abdominal Exam: Soft. absent: Distended, Firm, Guarding, Rigid, Tenderness , Rebound Assessment and Plan - Assessment and Plan (Free Text) Assessment: 59M with ventilator dependent respiratory failure Plan: Plan for OR tomorrow for tracheostomy Hold tube feeds at midnight Hold anticoagulation Pre-op labs Discussed with Dr. Celestine Lopez, PGY2
[2017-09-06] MEDS: Micafungin 100 MG in Sodium Chloride 0.9% 100 ML IV SCH (15:54)
--- NOTE | 2017-09-06 15:57 | RAD ---
HISTORY: PICC placement COMPARISON: 09/03/2017 FINDINGS: The left PICC line terminates in the SVC. The endotracheal tube terminates 3.5 cm proximal to the marii. LUNGS: Redemonstration of cystic changes and fluid in the right upper lobe. There is low lung volume on the right. The left lung is clear. PLEURA: Small bilateral pleural effusions, no pneumothorax apparent. CARDIOVASCULAR: Normal. OSSEOUS STRUCTURES: Stable postsurgical changes in the right sided ribs. VISUALIZED UPPER ABDOMEN: Normal. OTHER FINDINGS: None. IMPRESSION: Left PICC line terminates in the SVC. No other significant interval change.
--- NOTE | 2017-09-06 16:42 | CP.PCM.PN ---
Subjective - Date & Time of Evaluation Date of Evaluation: 09/06/17 Time of Evaluation: 11:00 - Subjective Subjective: patient seen and examined Not tolerating weaning Still copious secretions Afebrile Objective - Vital Signs/Intake and Output Vital Signs (last 24 hours): Temp Pulse Resp BP Pulse Ox 100.8 F H 95 H 15 87/49 L 99 09/06/17 16:00 09/06/17 16:15 09/06/17 16:15 09/06/17 16:15 09/06/17 16:15 Intake and Output: 09/06/17 09/06/17 06:59 18:59 Intake Total 1000 660 Output Total 475 210 Balance 525 450 - Medications Medications: Current Medications Acetaminophen (Tylenol 650 Mg Supp) 650 mg ME Q4 PRN PRN Reason: Fever >100.4 F Last Admin: 09/05/17 12:32 Dose: 650 mg Albuterol/Ipratropium (Duoneb 3 Mg/0.5 Mg (3 Ml) Ud) 3 ml INH RQ6 [facility] Last Admin: 09/06/17 13:21 Dose: 3 ml Amantadine HCl (Symmetrel) 100 mg PO DAILY [facility] Last Admin: 09/06/17 10:42 Dose: 100 mg Bisacodyl (Dulcolax) 10 mg ME ONCE PRN PRN Reason: consipation Carbamazepine (Tegretol) 100 mg PEG Q8 [facility] Last Admin: 09/06/17 13:57 Dose: 100 mg Enoxaparin Sodium (Lovenox) 40 mg SC DAILY [facility] Last Admin: 09/06/17 10:43 Dose: 40 mg Metronidazole (Flagyl) 500 mg in 100 mls @ 100 mls/hr IVPB Q8 AMY PRN Reason: Protocol Last Admin: 09/06/17 13:57 Dose: 100 mls/hr Micafungin Sodium 100 mg/ (Sodium Chloride) 100 mls @ 100 mls/hr IV Q24H AMY PRN Reason: Protocol Last Admin: 09/06/17 15:54 Dose: 100 mls/hr Lorazepam (Ativan) 1 mg IVP Q4H PRN PRN Reason: Anxiety Last Admin: 09/03/17 10:41 Dose: 1 mg Moxifloxacin HCl (Avelox) 400 mg PO Q24H [facility] Last Admin: 09/06/17 13:59 Dose: 400 mg Pantoprazole Sodium (Protonix Susp) 40 mg PO DAILY [facility] Last Admin: 09/06/17 10:42 Dose: 40 mg Rosuvastatin Calcium (Crestor) 5 mg PO HS [facility] Last Admin: 09/05/17 21:50 Dose: 5 mg Valproate Sodium (Depakene Oral Soln) 250 mg PEG Q12 [facility] Last Admin: 09/06/17 10:42 Dose: 250 mg - Labs Labs: 09/06/17 06:16 09/06/17 06:17 PT 16.5 SECONDS (9.7-12.2) H 08/31/17 06:36 INR 1.5 08/31/17 06:36 APTT 33 SECONDS (21-34) 08/31/17 06:36 - Head Exam Head Exam: ATRAUMATIC, NORMOCEPHALIC - ENT Exam ENT Exam: Mucous Membranes Moist - Neck Exam Neck Exam: Normal Inspection - Respiratory Exam Respiratory Exam: Rales - Cardiovascular Exam Cardiovascular Exam: REGULAR RHYTHM - GI/Abdominal Exam GI & Abdominal Exam: Soft, Normal Bowel Sounds Assessment and Plan (1) Respiratory failure Assessment & Plan: Tracheostomy tomorrow Continue antibiotics Continue PEG feeding Status: Acute (2) Anemia Status: Acute (3) Pneumonia Status: Acute
[2017-09-06] MEDS ORDERED: Dextrose 50% SYRINGE Inj (50 ml) IV STA (17:47)
[2017-09-06] MEDS: Vancomycin 1 gm/NS 200 ml 1 GM/200 ML BAG IVPB SCH (18:09)
[2017-09-07] MEDS: Albuterol-Ipratrop 3 mg / 0.5 (3 ml) UD INH SCH ×4 (01:29→19:38)
[2017-09-07] MEDS: metroNIDAZOLE IV 500 mg/100 ml 500 MG/100 ML BAG IVPB SCH ×3 (05:06→21:16)
[2017-09-07] MEDS: carBAMazepine Chew Tab 100 MG Chew Tab PEG SCH ×3 (05:07→21:16)
[2017-09-07 06:16] LABS: BASO % 0.4 % (0.0-2.0); EOS % 0.4 % (0.0-4.0); HEMOGLOBIN 7.1 g/dL (12.0-18.0); LYMPH % 25.9 % (20.0-40.0); MEAN CELL VOLUME 84.2 fL (80.0-94.0); MEAN CORPUSCULAR HEMOGLOBIN 27.7 pg (27.0-31.0); MEAN CORPUSCULAR HGB CONC 32.9 g/dL (33.0-37.0); MONO # 1.7 K/uL (0.0-0.8); NEUT # 3.8 K/uL (1.8-7.0); NEUT % 50.3 % (50.0-75.0); PLATELET COUNT 207 K/uL (130-400); RBC 2.56 Mil/uL (4.40-5.90); RED CELL DISTRIBUTION WIDTH 17.3 % (11.5-14.5); WHITE BLOOD COUNT 7.6 K/uL (4.8-10.8)
[2017-09-07 06:31] LABS: ALB/GLOB RATIO 0.4 (1.0-2.1); ALBUMIN 1.7 g/dL (3.5-5.0); ALT/SGPT 11 U/L (21-72); AST/SGOT 32 U/L (17-59); BLOOD UREA NITROGEN 22 mg/dL (9-20); CALCIUM 6.8 mg/dl (8.6-10.4); GFR AFRICAN-AMERICAN > 60; GFR NON-AFRICAN AMERICAN > 60
[2017-09-07] MEDS ORDERED: Dextrose 5%/0.9% NS 1,000 ML IV SCH (07:30)
[2017-09-07 08:20] LABS: BANDS 3 % (0-2); EOSINOPHIL 1 % (0-4); LYMPHOCYTE 25 % (20-40); TOTAL CELLS COUNTED 100
[2017-09-07 08:21] LABS: ANISOCYTOSIS SLIGHT; HYPOCHROMIC SLIGHT; MONOCYTE 18 % (0-10); NEUTROPHIL 53 % (50-75); PLATELET ESTIMATE NORMAL (NORMAL); TARGET CELLS SLIGHT
[2017-09-07] MEDS: Valproic Acid 250 mg/5 ml UD Cup PEG SCH ×2 (09:44→21:16)
[2017-09-07] MEDS: Amantadine 50 mg/5 ml Syrup (473 ml) PO SCH (09:45)
[2017-09-07] MEDS: Pantoprazole 40 mg Susp UD PO SCH (09:45)
--- NOTE | 2017-09-07 10:27 | VASCLAB ---
PROCEDURE: Upper Extremity Venous Duplex Exam HISTORY: Swelling PRIORS: None. TECHNIQUE: Bilateral upper extremity, internal jugular, subclavian, axillary, brachial, ulnar, radial, basilic and upper cephalic veins were evaluated. Flow was assessed with color Doppler, compressibility, assessment of phasic flow and augmentation response. Report prepared by [facility] FINDINGS: RIGHT: 1. Internal Jugular: 1.1. Compressibility - Fully compressible: Thrombus - None : Flow - Phasic: Augmentation -Normal: Reflux - None. 2. Subclavian: 2.1. Compressibility - Fully compressible: Thrombus - None : Flow - Phasic: Augmentation -Normal: Reflux - None. 3. Axillary: 3.1. Compressibility - Fully compressible: Thrombus - None : Flow - Phasic: Augmentation -Normal: Reflux - None. 4. Brachial: 4.1. Compressibility - Fully compressible: Thrombus - None: Flow - Phasic: Augmentation -Normal: Reflux - None. 5. Ulnar: 5.1. Compressibility - Fully compressible: Thrombus - None: Flow - Phasic: Augmentation -Normal: Reflux - None. 6. Radial: 6.1. Compressibility - Fully compressible: Thrombus - None: Flow - Phasic: Augmentation - Normal: Reflux - None. 7. Cephalic: 7.1. Compressibility - Fully compressible: Thrombus - None: Flow - Phasic: Augmentation -Normal: Reflux - None. 8. Basilic: 8.1. Not visualized LEFT: 1. Internal Jugular: 1.1. Unable to examine 2. Subclavian: 2.1. Compressibility - Fully compressible: Thrombus - None : Flow - Phasic: Augmentation -Normal: Reflux - None. 3. Axillary: 3.1. Compressibility - Fully compressible: Thrombus - None : Flow - Phasic: Augmentation -Normal: Reflux - None. 4. Brachial: (proximal upper arm only) 4.1. Compressibility - Fully compressible: Thrombus - None: Flow - Phasic: Augmentation -Normal: Reflux - None. 5. Ulnar: 5.1. Compressibility - Fully compressible: Thrombus - None: Flow - Phasic: Augmentation -Normal: Reflux - None. 6. Radial: 6.1. Compressibility - Fully compressible: Thrombus - None: Flow - Phasic: Augmentation - Normal: Reflux - None. 7. Cephalic: 7.1. Not visualized 8. Basilic: 8.1. Not visualized OTHER FINDINGS: Right: None. Left: Limited exam of the left upper extremity due to lines and dressings. IMPRESSION: Right: No evidence of vein thrombosis of the right upper extremity with excellent venous flow. Normal valve function noted of the right side. Left: No evidence of vein thrombosis of the left upper extremity with excellent venous flow, for the imaged veins. Normal valve function noted of the left side.
--- NOTE | 2017-09-07 10:41 | CP.CCUPN ---
"<Tita Xie - Last Filed: 09/07/17 10:44> CCU Subjective - Physician Review Subjective (Free Text): Patient was seen and examined at bedside. Remains on PRVC continued Rate 18, FiO2 40%, TV 400, PEEP 5. Patient remains sugglish, responds to pain. ROS unattainable. Patient is for tracheostomy 09/07/17. Pending consent from legal guardian. CCU Objective - Vital Signs / Intake & Output Vital Signs (Last 4 hours): Vital Signs Temp Pulse Resp BP Pulse Ox 09/07/17 10:25 98.8 F 99 H 30 H 104/56 L 09/07/17 09:00 98 H 27 H 99 09/07/17 08:00 98.8 F 93 H 20 93/52 L 100 09/07/17 07:00 95 H 28 H 94/57 L 99 Intake and Output (Last 8hrs): Intake & Output 09/06/17 09/07/17 09/07/17 22:59 06:59 14:59 Intake Total 620 700 100 Output Total 215 555 75 Balance 405 145 25 Intake: Intake, IV Amount 100 100 Left Medial Port PICC 100 100 Tube Feeding 320 300 0 Blood Product 0 Red Blood Cells Cpd As1 0 Lr Unit [id number] Other 200 400 Output: Urine 190 280 75 Urethral (Brown) 190 280 75 Stool 25 275 - Physical Exam Head: Positive for: Atraumatic, Normocephalic Pupils: Positive for: Sluggish Mouth: Positive for: Dry. Negative for: Moist Mucous Membranes Respiratory/Chest: Positive for: Clear to Auscultation, Decreased Breath Sounds (RUL ), Other (Intubated) Cardiovascular: Positive for: Normal S1, S2. Negative for: Tachycardic Abdomen: Positive for: Normal Bowel Sounds. Negative for: Distention Neurological: Negative for: GCS=15 (10T) Skin: Positive for: Warm, Dry, Normal Color. Negative for: Rashes Psychiatric: Negative for: Alert - Medications Active Medications: Active Medications Generic Name Dose Route Start Last Admin Trade Name Freq PRN Reason Stop Dose Admin Acetaminophen 650 mg 08/25/17 17:20 09/05/17 12:32 Tylenol 650 Mg Supp OR 650 mg Q4 PRN Administration Fever >100.4 F Albuterol/Ipratropium 3 ml 08/28/17 08:00 09/07/17 07:44 Duoneb 3 Mg/0.5 Mg (3 Ml) Ud INH 3 ml RQ6 AMY Administration Amantadine HCl 100 mg 09/05/17 10:00 09/07/17 09:45 Symmetrel PO Not Given DAILY AMY Bisacodyl 10 mg 08/29/17 08:30 Dulcolax OR ONCE PRN consipation Carbamazepine 100 mg 08/24/17 22:00 09/07/17 05:07 Tegretol PEG 100 mg Q8 AMY Administration Enoxaparin Sodium 40 mg 08/24/17 18:00 09/06/17 10:43 Lovenox SC 40 mg DAILY AMY Administration Metronidazole 500 mg in 100 mls @ 100 mls/hr 08/31/17 14:00 09/07/17 05:06 Flagyl IVPB 100 mls/hr Q8 AMY Administration Protocol Micafungin Sodium 100 mg/ 100 mls @ 100 mls/hr 09/01/17 16:00 09/06/17 15:54 Sodium Chloride IV 100 mls/hr Q24H AMY Administration Protocol Vancomycin/Sodium Chloride 1 gm in 200 mls @ 133 mls/hr 09/06/17 18:00 18:09 Vancomycin 1 Gm/Ns 200 Ml IVPB 09/11/17 18:01 133 mls/hr Q24H AMY Administration Protocol Dextrose/Sodium Chloride 1,000 mls @ 50 mls/hr 09/07/17 07:30 09/07/17 07:49 Dextrose 5%/0.9% Ns 1000 Ml IV 09/08/17 03:29 50 mls/hr .Q20H AMY Administration Lorazepam 1 mg 09/03/17 01:11 09/06/17 17:02 Ativan IVP 1 mg Q4H PRN Administration Anxiety Moxifloxacin HCl 400 mg 09/01/17 15:00 09/06/17 13:59 Avelox PO 400 mg Q24H AMY Administration Pantoprazole Sodium 40 mg 08/29/17 10:00 09/07/17 09:45 Protonix Susp PO Not Given DAILY AMY Rosuvastatin Calcium 5 mg 08/24/17 22:00 09/06/17 21:36 Crestor PO 5 mg HS AMY Administration Valproate Sodium 250 mg 09/02/17 22:00 09/07/17 09:44 Depakene Oral Soln PEG Not Given Q12 AMY - Patient Studies Lab Studies: Microbiology Studies 09/06/17 12:09 Gram Stain - Final Sputum Lab Studies 09/07/17 09/07/17 09/07/17 Range/Units 06:23 06:08 06:06 WBC (4.8-10.8) K/uL RBC (4.40-5.90) Mil/uL Hgb (12.0-18.0) g/dL Hct (35.0-51.0) % MCV (80.0-94.0) fL MCH (27.0-31.0) pg MCHC (33.0-37.0) g/dL RDW (11.5-14.5) % Plt Count (130-400) K/uL MPV (7.2-11.7) fL Neut % (Auto) (50.0-75.0) % Lymph % (Auto) (20.0-40.0) % King % (Auto) (0.0-10.0) % Eos % (Auto) (0.0-4.0) % Baso % (Auto) (0.0-2.0) % Neut # (Auto) (1.8-7.0) K/uL Lymph # (Auto) (1.0-4.3) K/uL King # (Auto) (0.0-0.8) K/uL Eos # (Auto) (0.0-0.7) K/uL Baso # (Auto) (0.0-0.2) K/uL Neutrophils % (Manual) (50-75) % Band Neutrophils % (0-2) % Lymphocytes % (Manual) (20-40) % Monocytes % (Manual) (0-10) % Eosinophils % (Manual) (0-4) % Platelet Estimate (NORMAL) Hypochromasia (manual) Anisocytosis (manual) Target Cells PT 22.0 H (9.7-12.2) SECONDS INR 2.0 APTT 43 H (21-34) SECONDS Sodium 146 (132-148) mmol/L Potassium 3.7 (3.6-5.2) mmol/L Chloride 118 H (98-107) mmol/L Carbon Dioxide 18 L (22-30) mmol/L Anion Gap 15 (10-20) BUN 22 H (9-20) mg/dL Creatinine 0.9 (0.8-1.5) mg/dL Est GFR ( Amer) > 60 Est GFR (Non-Af Amer) > 60 POC Glucose (mg/dL) (65-110) mg/dL Random Glucose 86 (75-110) mg/dL Calcium 6.8 L (8.6-10.4) mg/dl Phosphorus 3.7 (2.5-4.5) mg/dL Magnesium 2.0 (1.6-2.3) mg/dL Total Bilirubin 4.3 H (0.2-1.3) mg/dL AST 32 (17-59) U/L ALT 11 L D (21-72) U/L Alkaline Phosphatase 53 (38-126) U/L Total Protein 6.1 L (6.3-8.3) g/dL Albumin 1.7 L (3.5-5.0) g/dL Globulin 4.4 H (2.2-3.9) gm/dL Albumin/Globulin Ratio 0.4 L (1.0-2.1) Urine Color (YELLOW) Urine Clarity (Clear) Urine pH (5.0-8.0) Ur Specific [place] (1.003-1.030) Urine Protein (NEGATIVE) mg/dL Urine Glucose (UA) (Normal) mg/dL Urine Ketones (NEGATIVE) mg/dL Urine Blood (NEGATIVE) Urine Nitrate (NEGATIVE) Urine Bilirubin (NEGATIVE) Urine Urobilinogen (0.2-1.0) mg/dL Ur Leukocyte Esterase (Negative) Hui/uL Urine WBC (Auto) (0-5) /hpf Urine RBC (Auto) (0-3) /hpf Ur Squamous Epith Cells (0-5) /hpf Urine Bacteria (<OCC) Histop Galactomannan Ag ng/mL Aspergillus Antigen (Not Detected) Aspergillus Index Value (<0.50) Blood Type O POSITIVE Antibody Screen Negative 09/07/17 09/07/17 09/06/17 Range/Units 06:06 05:24 23:43 WBC 7.6 (4.8-10.8) K/uL RBC 2.56 L (4.40-5.90) Mil/uL Hgb 7.1 L (12.0-18.0) g/dL Hct 21.6 L (35.0-51.0) % MCV 84.2 (80.0-94.0) fL MCH 27.7 (27.0-31.0) pg MCHC 32.9 L (33.0-37.0) g/dL RDW 17.3 H (11.5-14.5) % Plt Count 207 (130-400) K/uL MPV 9.0 (7.2-11.7) fL Neut % (Auto) 50.3 (50.0-75.0) % Lymph % (Auto) 25.9 (20.0-40.0) % King % (Auto) 23.0 H (0.0-10.0) % Eos % (Auto) 0.4 (0.0-4.0) % Baso % (Auto) 0.4 (0.0-2.0) % Neut # (Auto) 3.8 (1.8-7.0) K/uL Lymph # (Auto) 2.0 (1.0-4.3) K/uL King # (Auto) 1.7 H (0.0-0.8) K/uL Eos # (Auto) 0.0 (0.0-0.7) K/uL Baso # (Auto) 0.0 (0.0-0.2) K/uL Neutrophils % (Manual) 53 (50-75) % Band Neutrophils % 3 H (0-2) % Lymphocytes % (Manual) 25 (20-40) % Monocytes % (Manual) 18 H (0-10) % Eosinophils % (Manual) 1 (0-4) % Platelet Estimate Normal (NORMAL) Hypochromasia (manual) Slight Anisocytosis (manual) Slight Target Cells Slight PT (9.7-12.2) SECONDS INR APTT (21-34) SECONDS Sodium (132-148) mmol/L Potassium (3.6-5.2) mmol/L Chloride (98-107) mmol/L Carbon Dioxide (22-30) mmol/L Anion Gap (10-20) BUN (9-20) mg/dL Creatinine (0.8-1.5) mg/dL Est GFR ( Amer) Est GFR (Non-Af Amer) POC Glucose (mg/dL) 84 84 (65-110) mg/dL Random Glucose (75-110) mg/dL Calcium (8.6-10.4) mg/dl Phosphorus (2.5-4.5) mg/dL Magnesium (1.6-2.3) mg/dL Total Bilirubin (0.2-1.3) mg/dL AST (17-59) U/L ALT (21-72) U/L Alkaline Phosphatase (38-126) U/L Total Protein (6.3-8.3) g/dL Albumin (3.5-5.0) g/dL Globulin (2.2-3.9) gm/dL Albumin/Globulin Ratio (1.0-2.1) Urine Color (YELLOW) Urine Clarity (Clear) Urine pH (5.0-8.0) Ur Specific [place] (1.003-1.030) Urine Protein (NEGATIVE) mg/dL Urine Glucose (UA) (Normal) mg/dL Urine Ketones (NEGATIVE) mg/dL Urine Blood (NEGATIVE) Urine Nitrate (NEGATIVE) Urine Bilirubin (NEGATIVE) Urine Urobilinogen (0.2-1.0) mg/dL Ur Leukocyte Esterase (Negative) Hui/uL Urine WBC (Auto) (0-5) /hpf Urine RBC (Auto) (0-3) /hpf Ur Squamous Epith Cells (0-5) /hpf Urine Bacteria (<OCC) Histop Galactomannan Ag ng/mL Aspergillus Antigen (Not Detected) Aspergillus Index Value (<0.50) Blood Type Antibody Screen 09/06/17 09/06/17 09/06/17 Range/Units 18:19 17:46 17:44 WBC (4.8-10.8) K/uL RBC (4.40-5.90) Mil/uL Hgb (12.0-18.0) g/dL Hct (35.0-51.0) % MCV (80.0-94.0) fL MCH (27.0-31.0) pg MCHC (33.0-37.0) g/dL RDW (11.5-14.5) % Plt Count (130-400) K/uL MPV (7.2-11.7) fL Neut % (Auto) (50.0-75.0) % Lymph % (Auto) (20.0-40.0) % King % (Auto) (0.0-10.0) % Eos % (Auto) (0.0-4.0) % Baso % (Auto) (0.0-2.0) % Neut # (Auto) (1.8-7.0) K/uL Lymph # (Auto) (1.0-4.3) K/uL King # (Auto) (0.0-0.8) K/uL Eos # (Auto) (0.0-0.7) K/uL Baso # (Auto) (0.0-0.2) K/uL Neutrophils % (Manual) (50-75) % Band Neutrophils % (0-2) % Lymphocytes % (Manual) (20-40) % Monocytes % (Manual) (0-10) % Eosinophils % (Manual) (0-4) % Platelet Estimate (NORMAL) Hypochromasia (manual) Anisocytosis (manual) Target Cells PT (9.7-12.2) SECONDS INR APTT (21-34) SECONDS Sodium (132-148) mmol/L Potassium (3.6-5.2) mmol/L Chloride (98-107) mmol/L Carbon Dioxide (22-30) mmol/L Anion Gap (10-20) BUN (9-20) mg/dL Creatinine (0.8-1.5) mg/dL Est GFR ( Amer) Est GFR (Non-Af Amer) POC Glucose (mg/dL) 127 H 52 L 49 L (65-110) mg/dL Random Glucose (75-110) mg/dL Calcium (8.6-10.4) mg/dl Phosphorus (2.5-4.5) mg/dL Magnesium (1.6-2.3) mg/dL Total Bilirubin (0.2-1.3) mg/dL AST (17-59) U/L ALT (21-72) U/L Alkaline Phosphatase (38-126) U/L Total Protein (6.3-8.3) g/dL Albumin (3.5-5.0) g/dL Globulin (2.2-3.9) gm/dL Albumin/Globulin Ratio (1.0-2.1) Urine Color (YELLOW) Urine Clarity (Clear) Urine pH (5.0-8.0) Ur Specific [place] (1.003-1.030) Urine Protein (NEGATIVE) mg/dL Urine Glucose (UA) (Normal) mg/dL Urine Ketones (NEGATIVE) mg/dL Urine Blood (NEGATIVE) Urine Nitrate (NEGATIVE) Urine Bilirubin (NEGATIVE) Urine Urobilinogen (0.2-1.0) mg/dL Ur Leukocyte Esterase (Negative) Hui/uL Urine WBC (Auto) (0-5) /hpf Urine RBC (Auto) (0-3) /hpf Ur Squamous Epith Cells (0-5) /hpf Urine Bacteria (<OCC) Histop Galactomannan Ag ng/mL Aspergillus Antigen (Not Detected) Aspergillus Index Value (<0.50) Blood Type Antibody Screen 09/06/17 09/01/17 09/01/17 Range/Units 12:09 19:16 07:25 WBC (4.8-10.8) K/uL RBC (4.40-5.90) Mil/uL Hgb (12.0-18.0) g/dL Hct (35.0-51.0) % MCV (80.0-94.0) fL MCH (27.0-31.0) pg MCHC (33.0-37.0) g/dL RDW (11.5-14.5) % Plt Count (130-400) K/uL MPV (7.2-11.7) fL Neut % (Auto) (50.0-75.0) % Lymph % (Auto) (20.0-40.0) % King % (Auto) (0.0-10.0) % Eos % (Auto) (0.0-4.0) % Baso % (Auto) (0.0-2.0) % Neut # (Auto) (1.8-7.0) K/uL Lymph # (Auto) (1.0-4.3) K/uL King # (Auto) (0.0-0.8) K/uL Eos # (Auto) (0.0-0.7) K/uL Baso # (Auto) (0.0-0.2) K/uL Neutrophils % (Manual) (50-75) % Band Neutrophils % (0-2) % Lymphocytes % (Manual) (20-40) % Monocytes % (Manual) (0-10) % Eosinophils % (Manual) (0-4) % Platelet Estimate (NORMAL) Hypochromasia (manual) Anisocytosis (manual) Target Cells PT (9.7-12.2) SECONDS INR APTT (21-34) SECONDS Sodium (132-148) mmol/L Potassium (3.6-5.2) mmol/L Chloride (98-107) mmol/L Carbon Dioxide (22-30) mmol/L Anion Gap (10-20) BUN (9-20) mg/dL Creatinine (0.8-1.5) mg/dL Est GFR ( Amer) Est GFR (Non-Af Amer) POC Glucose (mg/dL) (65-110) mg/dL Random Glucose (75-110) mg/dL Calcium (8.6-10.4) mg/dl Phosphorus (2.5-4.5) mg/dL Magnesium (1.6-2.3) mg/dL Total Bilirubin (0.2-1.3) mg/dL AST (17-59) U/L ALT (21-72) U/L Alkaline Phosphatase (38-126) U/L Total Protein (6.3-8.3) g/dL Albumin (3.5-5.0) g/dL Globulin (2.2-3.9) gm/dL Albumin/Globulin Ratio (1.0-2.1) Urine Color Nay (YELLOW) Urine Clarity Clear (Clear) Urine pH 6.0 (5.0-8.0) Ur Specific [place] 1.017 (1.003-1.030) Urine Protein 2+ H (NEGATIVE) mg/dL Urine Glucose (UA) Normal (Normal) mg/dL Urine Ketones Negative (NEGATIVE) mg/dL Urine Blood Negative (NEGATIVE) Urine Nitrate Negative (NEGATIVE) Urine Bilirubin Negative (NEGATIVE) Urine Urobilinogen Normal (0.2-1.0) mg/dL Ur Leukocyte Esterase Neg (Negative) Hui/uL Urine WBC (Auto) 4 (0-5) /hpf Urine RBC (Auto) 8 H (0-3) /hpf Ur Squamous Epith Cells < 1 (0-5) /hpf Urine Bacteria Rare (<OCC) Histop Galactomannan Ag <0.5 ng/mL Aspergillus Antigen Not detected (Not Detected) Aspergillus Index Value 0.13 (<0.50) Blood Type Antibody Screen Laboratory Results - last 24 hr 09/01/17 09/01/17 09/06/17 07:25 19:16 12:09 WBC RBC Hgb Hct MCV MCH MCHC RDW Plt Count MPV Neut % (Auto) Lymph % (Auto) King % (Auto) Eos % (Auto) Baso % (Auto) Neut # (Auto) Lymph # (Auto) King # (Auto) Eos # (Auto) Baso # (Auto) Neutrophils % (Manual) Band Neutrophils % Lymphocytes % (Manual) Monocytes % (Manual) Eosinophils % (Manual) Platelet Estimate Hypochromasia (manual) Anisocytosis (manual) Target Cells PT INR APTT Sodium Potassium Chloride Carbon Dioxide Anion Gap BUN Creatinine Est GFR ( Amer) Est GFR (Non-Af Amer) POC Glucose (mg/dL) Random Glucose Calcium Phosphorus Magnesium Total Bilirubin AST ALT Alkaline Phosphatase Total Protein Albumin Globulin Albumin/Globulin Ratio Urine Color Nay Urine Clarity Clear Urine pH 6.0 Ur Specific [place] 1.017 Urine Protein 2+ H Urine Glucose (UA) Normal Urine Ketones Negative Urine Blood Negative Urine Nitrate Negative Urine Bilirubin Negative Urine Urobilinogen Normal Ur Leukocyte Esterase Neg Urine WBC (Auto) 4 Urine RBC (Auto) 8 H Ur Squamous Epith Cells < 1 Urine Bacteria Rare Histop Galactomannan Ag <0.5 Aspergillus Antigen Not detected Aspergillus Index Value 0.13 Blood Type Antibody Screen 09/06/17 09/06/17 09/06/17 17:44 17:46 18:19 WBC RBC Hgb Hct MCV MCH MCHC RDW Plt Count MPV Neut % (Auto) Lymph % (Auto) King % (Auto) Eos % (Auto) Baso % (Auto) Neut # (Auto) Lymph # (Auto) King # (Auto) Eos # (Auto) Baso # (Auto) Neutrophils % (Manual) Band Neutrophils % Lymphocytes % (Manual) Monocytes % (Manual) Eosinophils % (Manual) Platelet Estimate Hypochromasia (manual) Anisocytosis (manual) Target Cells PT INR APTT Sodium Potassium Chloride Carbon Dioxide Anion Gap BUN Creatinine Est GFR ( Amer) Est GFR (Non-Af Amer) POC Glucose (mg/dL) 49 L 52 L 127 H Random Glucose Calcium Phosphorus Magnesium Total Bilirubin AST ALT Alkaline Phosphatase Total Protein Albumin Globulin Albumin/Globulin Ratio Urine Color Urine Clarity Urine pH Ur Specific [place] Urine Protein Urine Glucose (UA) Urine Ketones Urine Blood Urine Nitrate Urine Bilirubin Urine Urobilinogen Ur Leukocyte Esterase Urine WBC (Auto) Urine RBC (Auto) Ur Squamous Epith Cells Urine Bacteria Histop Galactomannan Ag Aspergillus Antigen Aspergillus Index Value Blood Type Antibody Screen 09/06/17 09/07/17 09/07/17 23:43 05:24 06:06 WBC 7.6 RBC 2.56 L Hgb 7.1 L Hct 21.6 L MCV 84.2 MCH 27.7 MCHC 32.9 L RDW 17.3 H Plt Count 207 MPV 9.0 Neut % (Auto) 50.3 Lymph % (Auto) 25.9 King % (Auto) 23.0 H Eos % (Auto) 0.4 Baso % (Auto) 0.4 Neut # (Auto) 3.8 Lymph # (Auto) 2.0 King # (Auto) 1.7 H Eos # (Auto) 0.0 Baso # (Auto) 0.0 Neutrophils % (Manual) 53 Band Neutrophils % 3 H Lymphocytes % (Manual) 25 Monocytes % (Manual) 18 H Eosinophils % (Manual) 1 Platelet Estimate Normal Hypochromasia (manual) Slight Anisocytosis (manual) Slight Target Cells Slight PT INR APTT Sodium Potassium Chloride Carbon Dioxide Anion Gap BUN Creatinine Est GFR ( Amer) Est GFR (Non-Af Amer) POC Glucose (mg/dL) 84 84 Random Glucose Calcium Phosphorus Magnesium Total Bilirubin AST ALT Alkaline Phosphatase Total Protein Albumin Globulin Albumin/Globulin Ratio Urine Color Urine Clarity Urine pH Ur Specific [place] Urine Protein Urine Glucose (UA) Urine Ketones Urine Blood Urine Nitrate Urine Bilirubin Urine Urobilinogen Ur Leukocyte Esterase Urine WBC (Auto) Urine RBC (Auto) Ur Squamous Epith Cells Urine Bacteria Histop Galactomannan Ag Aspergillus Antigen Aspergillus Index Value Blood Type Antibody Screen 09/07/17 09/07/17 09/07/17 06:06 06:08 06:23 WBC RBC Hgb Hct MCV MCH MCHC RDW Plt Count MPV Neut % (Auto) Lymph % (Auto) [place] % (Auto) Eos % (Auto) Baso % (Auto) Neut # (Auto) Lymph # (Auto) [place] # (Auto) Eos # (Auto) Baso # (Auto) Neutrophils % (Manual) Band Neutrophils % Lymphocytes % (Manual) Monocytes % (Manual) Eosinophils % (Manual) Platelet Estimate Hypochromasia (manual) Anisocytosis (manual) Target Cells PT 22.0 H INR 2.0 APTT 43 H Sodium 146 Potassium 3.7 Chloride 118 H Carbon Dioxide 18 L Anion Gap 15 BUN 22 H Creatinine 0.9 Est GFR ( Amer) > 60 Est GFR (Non-Af Amer) > 60 POC Glucose (mg/dL) Random Glucose 86 Calcium 6.8 L Phosphorus 3.7 Magnesium 2.0 Total Bilirubin 4.3 H AST 32 ALT 11 L D Alkaline Phosphatase 53 Total Protein 6.1 L Albumin 1.7 L Globulin 4.4 H Albumin/Globulin Ratio 0.4 L Urine Color Urine Clarity Urine pH Ur Specific [place] Urine Protein Urine Glucose (UA) Urine Ketones Urine Blood Urine Nitrate Urine Bilirubin Urine Urobilinogen Ur Leukocyte Esterase Urine WBC (Auto) Urine RBC (Auto) Ur Squamous Epith Cells Urine Bacteria Histop Galactomannan Ag Aspergillus Antigen Aspergillus Index Value Blood Type O POSITIVE Antibody Screen Negative Fingerstick Blood Sugar Results: 84 Critical Care Progress Note - Nutrition Nutrition: Nutrition Category Date Time Status NPO Diet [DIET] Diets 09/07/17 Breakfast Active Assessment/Plan - Assessment and Plan (Free Text) Assessment: 77 year old male with PMHx of Arthritis, Asthma, COPD, Severe Dementia, HTN, Seizures, TIA with PEG, and Right AKA presents from senior care due to fever. Admitted to ICU, intubated due to respiratory failure. Code Sepsis 2/2 Mycoplasma Pneumonia 08/27/17. S/P bronchoscopy 09/03/17. For Tracheostomy 09/07/17. Pending consent. Plan: Neuro: GCS: 10T Sedation: None A: Severe Dementia, Hx of Seizure Home Carbamazepine 100mg Q8 | Home Valproic Acid 250mg PEG QID Changed to Q12H Amantadine 100mg PO Daily per Neuro Cardio: A: HTN, Hx of TIA, HLD Crestor 5mg PO HS Pulm: A: Hypoxic Res. Failure, Asthma, COPD, Mycoplasma Pneumonia + 08/27/17 CXR (Admission): Stable postsurgical changes in the right lung with low lung volume and shift of mediastinal to the right. No acute findings. CXR (09/03): No significant interval change in right upper lobe cystic changes/ bulla and right pleural effusion. Stable position of endotracheal tube. S/P bronchoscopy 09/03/17 - pending results from bronchial washings Tracheostomy scheduled for 09/07/[address] Sprague - pending consent DuoNebs Scheduled Endo A: Hypoglycemia (Stable) GI: A: Enterocolitis CT chest Abd/Pelvis (08/27): Enterocolits; ascities;mild bladder wall thickening with air in the bladder, iatrogenic versus infectious. -Flagyl started 08/31/17 A: Elevated T. Bili - Continue to monitor, unremarkable on CT Scan Renal: A: Hypocalcemia, corrected calcium - within normal limits, Hypokalemia Replace electrolytes PRN Heme/Onc: A: Normocytic Anemia HgB stable at new baseline of low 8s Transfused 1 unit throughout admission Stool Occult Blood - NEGATIVE ID A: Code Sepsis, Leukocytosis (Resolved) Cultures (08/24, 08/31) Blood - NEGATIVE to date | Urine - NEGATIVE to date | Sputum - Normal Oral Kim | MRSA - NEGATIVE Wound Cultures - Coagulase Neg Staph, Likely normal Skin Kim ID on Consult, Recs Appreciated - Dr. Muñoz Mycoplasma Pneumonia IgM - POSITIVE, Patient has chronic Mycoplasma IgM. This was positive on 08/03/17 Antibiotics: Moxifloxacin 400mg Q24H and Micafungin 100mg Q24H started on 09/01, Flagyl 500mg Q8H started 08/31 AFB Sputum Culture x 2 negative, Aspergillus AB and Antigen, H. Galactomannan Antigen, Histoplasma AB, Quant Gold - PENDING - spiked 101F 09/05/17 at 12:30pm - was not suh cultured - repeated all cultures - follow up Integumentary A: Left Lower ext wounds Wound Care Prophylaxis Protonix Lovenox (Held) due to tracheostomy 09/07/17 Diet: Tube Feeding - Jevity 1.5 Lines: Right IJ Central Line will be switched to Left PICC line 09/06/17, consent retrieved from Elizabet legal guardian [phone] DW with ICU Attending - Tita Graves, PGY-1 <Giovanni Washington - Last Filed: 09/07/17 18:00> CCU Objective - Vital Signs / Intake & Output Vital Signs (Last 4 hours): Vital Signs Temp Pulse Resp BP Pulse Ox 09/07/17 16:00 102 H 37 H 98 09/07/17 15:58 97.3 F L 06/05/18 15:15 100 H 28 H 100/50 L 99 09/07/17 15:14 101 H 32 H 99/46 L 99 09/07/17 15:00 101 H 20 98 09/07/17 14:59 101 H 32 H 112/52 L 98 09/07/17 14:44 102 H 32 H 104/57 L 97 09/07/17 14:29 103 H 35 H 108/47 L 96 09/07/17 14:14 102 H 33 H 91/64 L 96 09/07/17 14:00 98 H 31 H 96 09/07/17 13:59 97 H 28 H 110/57 L 96 Intake and Output (Last 8hrs): Intake & Output 09/07/17 09/07/17 09/07/17 06:59 14:59 22:59 Intake Total 700 1160 230 Output Total 555 265 20 Balance 145 895 210 Intake: IV 100 Intake, IV Amount 575 150 Left Medial Port PICC 575 150 Tube Feeding 300 40 80 Blood Product 325 Red Blood Cells Cpd As1 325 Lr Unit [id number] Other 400 120 Output: Urine 280 265 20 Urethral (Brown) 280 265 20 Stool 275 - Medications Active Medications: Active Medications Generic Name Dose Route Start Last Admin Trade Name Freq PRN Reason Stop Dose Admin Acetaminophen 650 mg 08/25/17 17:20 09/05/17 12:32 Tylenol 650 Mg Supp OR 650 mg Q4 PRN Administration Fever >100.4 F Albuterol/Ipratropium 3 ml 08/28/17 08:00 09/07/17 13:29 Duoneb 3 Mg/0.5 Mg (3 Ml) Ud INH 3 ml RQ6 AMY Administration Amantadine HCl 100 mg 09/05/17 10:00 09/07/17 09:45 Symmetrel PO Not Given DAILY AMY Bisacodyl 10 mg 08/29/17 08:30 Dulcolax OR ONCE PRN consipation Carbamazepine 100 mg 08/24/17 22:00 09/07/17 14:28 Tegretol PEG 100 mg Q8 AMY Administration Enoxaparin Sodium 40 mg 08/24/17 18:00 09/06/17 10:43 Lovenox SC 40 mg DAILY AMY Administration Metronidazole 500 mg in 100 mls @ 100 mls/hr 08/31/17 14:00 09/07/17 13:43 Flagyl IVPB 100 mls/hr Q8 AMY Administration Protocol Micafungin Sodium 100 mg/ 100 mls @ 100 mls/hr 09/01/17 16:00 09/07/17 15:13 Sodium Chloride IV 100 mls/hr Q24H AMY Administration Protocol Vancomycin/Sodium Chloride 1 gm in 200 mls @ 133 mls/hr 09/06/17 18:00 17:08 Vancomycin 1 Gm/Ns 200 Ml IVPB 09/11/17 18:01 133 mls/hr Q24H AMY Administration Protocol Dextrose/Sodium Chloride 1,000 mls @ 50 mls/hr 09/07/17 07:30 09/07/17 07:49 Dextrose 5%/0.9% Ns 1000 Ml IV 09/08/17 03:29 50 mls/hr .Q20H AMY Administration Lorazepam 1 mg 09/03/17 01:11 09/06/17 17:02 Ativan IVP 1 mg Q4H PRN Administration Anxiety Moxifloxacin HCl 400 mg 09/01/17 15:00 09/07/17 14:47 Avelox PO 400 mg Q24H AMY Administration Pantoprazole Sodium 40 mg 08/29/17 10:00 09/07/17 09:45 Protonix Susp PO Not Given DAILY [facility] Rosuvastatin Calcium 5 mg 08/24/17 22:00 09/06/17 21:36 Crestor PO 5 mg HS AMY Administration Valproate Sodium 250 mg 09/02/17 22:00 09/07/17 09:44 Depakene Oral Soln PEG Not Given Q12 AMY - Patient Studies Lab Studies: Microbiology Studies 09/06/17 14:00 Blood Culture - Preliminary Blood-Thru Central Line NO GROWTH AFTER 24 HOURS 09/06/17 14:00 Blood Culture - Preliminary Blood-Thru Central Line NO GROWTH AFTER 24 HOURS 09/06/17 12:09 Urine Culture - Final Urine,Brown No Growth (<1,000 CFU/ML) 09/06/17 12:09 Gram Stain - Final Sputum Lab Studies 09/07/17 09/07/17 09/07/17 Range/Units 17:34 11:44 11:14 WBC (4.8-10.8) K/uL RBC (4.40-5.90) Mil/uL Hgb (12.0-18.0) g/dL Hct (35.0-51.0) % MCV (80.0-94.0) fL MCH (27.0-31.0) pg MCHC (33.0-37.0) g/dL RDW (11.5-14.5) % Plt Count (130-400) K/uL MPV (7.2-11.7) fL Neut % (Auto) (50.0-75.0) % Lymph % (Auto) (20.0-40.0) % King % (Auto) (0.0-10.0) % Eos % (Auto) (0.0-4.0) % Baso % (Auto) (0.0-2.0) % Neut # (Auto) (1.8-7.0) K/uL Lymph # (Auto) (1.0-4.3) K/uL King # (Auto) (0.0-0.8) K/uL Eos # (Auto) (0.0-0.7) K/uL Baso # (Auto) (0.0-0.2) K/uL Neutrophils % (Manual) (50-75) % Band Neutrophils % (0-2) % Lymphocytes % (Manual) (20-40) % Monocytes % (Manual) (0-10) % Eosinophils % (Manual) (0-4) % Platelet Estimate (NORMAL) Hypochromasia (manual) Anisocytosis (manual) Target Cells PT (9.7-12.2) SECONDS INR APTT (21-34) SECONDS Sodium (132-148) mmol/L Potassium (3.6-5.2) mmol/L Chloride (98-107) mmol/L Carbon Dioxide (22-30) mmol/L Anion Gap (10-20) BUN (9-20) mg/dL Creatinine (0.8-1.5) mg/dL Est GFR ( Amer) Est GFR (Non-Af Amer) POC Glucose (mg/dL) 80 184 H 62 L (65-110) mg/dL Random Glucose (75-110) mg/dL Calcium (8.6-10.4) mg/dl Phosphorus (2.5-4.5) mg/dL Magnesium (1.6-2.3) mg/dL Total Bilirubin (0.2-1.3) mg/dL AST (17-59) U/L ALT (21-72) U/L Alkaline Phosphatase (38-126) U/L Total Protein (6.3-8.3) g/dL Albumin (3.5-5.0) g/dL Globulin (2.2-3.9) gm/dL Albumin/Globulin Ratio (1.0-2.1) Histoplasma Ab Imm Diff (Negative) Histop Galactomannan Ag ng/mL Aspergillus Antigen (Not Detected) Aspergillus flavus Ab (Negative) Aspergill fumigatus Ab (Negative) Aspergillus niger Ab (Negative) Aspergillus Index Value (<0.50) Blood Type Antibody Screen 09/07/17 09/07/17 09/07/17 Range/Units 11:13 06:23 06:08 WBC (4.8-10.8) K/uL RBC (4.40-5.90) Mil/uL Hgb (12.0-18.0) g/dL Hct (35.0-51.0) % MCV (80.0-94.0) fL MCH (27.0-31.0) pg MCHC (33.0-37.0) g/dL RDW (11.5-14.5) % Plt Count (130-400) K/uL MPV (7.2-11.7) fL Neut % (Auto) (50.0-75.0) % Lymph % (Auto) (20.0-40.0) % King % (Auto) (0.0-10.0) % Eos % (Auto) (0.0-4.0) % Baso % (Auto) (0.0-2.0) % Neut # (Auto) (1.8-7.0) K/uL Lymph # (Auto) (1.0-4.3) K/uL King # (Auto) (0.0-0.8) K/uL Eos # (Auto) (0.0-0.7) K/uL Baso # (Auto) (0.0-0.2) K/uL Neutrophils % (Manual) (50-75) % Band Neutrophils % (0-2) % Lymphocytes % (Manual) (20-40) % Monocytes % (Manual) (0-10) % Eosinophils % (Manual) (0-4) % Platelet Estimate (NORMAL) Hypochromasia (manual) Anisocytosis (manual) Target Cells PT 22.0 H (9.7-12.2) SECONDS INR 2.0 APTT 43 H (21-34) SECONDS Sodium (132-148) mmol/L Potassium (3.6-5.2) mmol/L Chloride (98-107) mmol/L Carbon Dioxide (22-30) mmol/L Anion Gap (10-20) BUN (9-20) mg/dL Creatinine (0.8-1.5) mg/dL Est GFR ( Amer) Est GFR (Non-Af Amer) POC Glucose (mg/dL) 63 L (65-110) mg/dL Random Glucose (75-110) mg/dL Calcium (8.6-10.4) mg/dl Phosphorus (2.5-4.5) mg/dL Magnesium (1.6-2.3) mg/dL Total Bilirubin (0.2-1.3) mg/dL AST (17-59) U/L ALT (21-72) U/L Alkaline Phosphatase (38-126) U/L Total Protein (6.3-8.3) g/dL Albumin (3.5-5.0) g/dL Globulin (2.2-3.9) gm/dL Albumin/Globulin Ratio (1.0-2.1) Histoplasma Ab Imm Diff (Negative) Histop Galactomannan Ag ng/mL Aspergillus Antigen (Not Detected) Aspergillus flavus Ab (Negative) Aspergill fumigatus Ab (Negative) Aspergillus niger Ab (Negative) Aspergillus Index Value (<0.50) Blood Type O POSITIVE Antibody Screen Negative 09/07/17 09/07/17 09/07/17 Range/Units 06:06 06:06 05:24 WBC 7.6 (4.8-10.8) K/uL RBC 2.56 L (4.40-5.90) Mil/uL Hgb 7.1 L (12.0-18.0) g/dL Hct 21.6 L (35.0-51.0) % MCV 84.2 (80.0-94.0) fL MCH 27.7 (27.0-31.0) pg MCHC 32.9 L (33.0-37.0) g/dL RDW 17.3 H (11.5-14.5) % Plt Count 207 (130-400) K/uL MPV 9.0 (7.2-11.7) fL Neut % (Auto) 50.3 (50.0-75.0) % Lymph % (Auto) 25.9 (20.0-40.0) % King % (Auto) 23.0 H (0.0-10.0) % Eos % (Auto) 0.4 (0.0-4.0) % Baso % (Auto) 0.4 (0.0-2.0) % Neut # (Auto) 3.8 (1.8-7.0) K/uL Lymph # (Auto) 2.0 (1.0-4.3) K/uL King # (Auto) 1.7 H (0.0-0.8) K/uL Eos # (Auto) 0.0 (0.0-0.7) K/uL Baso # (Auto) 0.0 (0.0-0.2) K/uL Neutrophils % (Manual) 53 (50-75) % Band Neutrophils % 3 H (0-2) % Lymphocytes % (Manual) 25 (20-40) % Monocytes % (Manual) 18 H (0-10) % Eosinophils % (Manual) 1 (0-4) % Platelet Estimate Normal (NORMAL) Hypochromasia (manual) Slight Anisocytosis (manual) Slight Target Cells Slight PT (9.7-12.2) SECONDS INR APTT (21-34) SECONDS Sodium 146 (132-148) mmol/L Potassium 3.7 (3.6-5.2) mmol/L Chloride 118 H (98-107) mmol/L Carbon Dioxide 18 L (22-30) mmol/L Anion Gap 15 (10-20) BUN 22 H (9-20) mg/dL Creatinine 0.9 (0.8-1.5) mg/dL Est GFR ( Amer) > 60 Est GFR (Non-Af Amer) > 60 POC Glucose (mg/dL) 84 (65-110) mg/dL Random Glucose 86 (75-110) mg/dL Calcium 6.8 L (8.6-10.4) mg/dl Phosphorus 3.7 (2.5-4.5) mg/dL Magnesium 2.0 (1.6-2.3) mg/dL Total Bilirubin 4.3 H (0.2-1.3) mg/dL AST 32 (17-59) U/L ALT 11 L D (21-72) U/L Alkaline Phosphatase 53 (38-126) U/L Total Protein 6.1 L (6.3-8.3) g/dL Albumin 1.7 L (3.5-5.0) g/dL Globulin 4.4 H (2.2-3.9) gm/dL Albumin/Globulin Ratio 0.4 L (1.0-2.1) Histoplasma Ab Imm Diff (Negative) Histop Galactomannan Ag ng/mL Aspergillus Antigen (Not Detected) Aspergillus flavus Ab (Negative) Aspergill fumigatus Ab (Negative) Aspergillus niger Ab (Negative) Aspergillus Index Value (<0.50) Blood Type Antibody Screen 09/06/17 09/06/17 09/06/17 Range/Units 23:43 18:19 17:46 WBC (4.8-10.8) K/uL RBC (4.40-5.90) Mil/uL Hgb (12.0-18.0) g/dL Hct (35.0-51.0) % MCV (80.0-94.0) fL MCH (27.0-31.0) pg MCHC (33.0-37.0) g/dL RDW (11.5-14.5) % Plt Count (130-400) K/uL MPV (7.2-11.7) fL Neut % (Auto) (50.0-75.0) % Lymph % (Auto) (20.0-40.0) % King % (Auto) (0.0-10.0) % Eos % (Auto) (0.0-4.0) % Baso % (Auto) (0.0-2.0) % Neut # (Auto) (1.8-7.0) K/uL Lymph # (Auto) (1.0-4.3) K/uL King # (Auto) (0.0-0.8) K/uL Eos # (Auto) (0.0-0.7) K/uL Baso # (Auto) (0.0-0.2) K/uL Neutrophils % (Manual) (50-75) % Band Neutrophils % (0-2) % Lymphocytes % (Manual) (20-40) % Monocytes % (Manual) (0-10) % Eosinophils % (Manual) (0-4) % Platelet Estimate (NORMAL) Hypochromasia (manual) Anisocytosis (manual) Target Cells PT (9.7-12.2) SECONDS INR APTT (21-34) SECONDS Sodium (132-148) mmol/L Potassium (3.6-5.2) mmol/L Chloride (98-107) mmol/L Carbon Dioxide (22-30) mmol/L Anion Gap (10-20) BUN (9-20) mg/dL Creatinine (0.8-1.5) mg/dL Est GFR ( Amer) Est GFR (Non-Af Amer) POC Glucose (mg/dL) 84 127 H 52 L (65-110) mg/dL Random Glucose (75-110) mg/dL Calcium (8.6-10.4) mg/dl Phosphorus (2.5-4.5) mg/dL Magnesium (1.6-2.3) mg/dL Total Bilirubin (0.2-1.3) mg/dL AST (17-59) U/L ALT (21-72) U/L Alkaline Phosphatase (38-126) U/L Total Protein (6.3-8.3) g/dL Albumin (3.5-5.0) g/dL Globulin (2.2-3.9) gm/dL Albumin/Globulin Ratio (1.0-2.1) Histoplasma Ab Imm Diff (Negative) Histop Galactomannan Ag ng/mL Aspergillus Antigen (Not Detected) Aspergillus flavus Ab (Negative) Aspergill fumigatus Ab (Negative) Aspergillus niger Ab (Negative) Aspergillus Index Value (<0.50) Blood Type Antibody Screen 09/06/17 09/01/17 09/01/17 Range/Units 17:44 19:16 07:25 WBC (4.8-10.8) K/uL RBC (4.40-5.90) Mil/uL Hgb (12.0-18.0) g/dL Hct (35.0-51.0) % MCV (80.0-94.0) fL MCH (27.0-31.0) pg MCHC (33.0-37.0) g/dL RDW (11.5-14.5) % Plt Count (130-400) K/uL MPV (7.2-11.7) fL Neut % (Auto) (50.0-75.0) % Lymph % (Auto) (20.0-40.0) % King % (Auto) (0.0-10.0) % Eos % (Auto) (0.0-4.0) % Baso % (Auto) (0.0-2.0) % Neut # (Auto) (1.8-7.0) K/uL Lymph # (Auto) (1.0-4.3) K/uL King # (Auto) (0.0-0.8) K/uL Eos # (Auto) (0.0-0.7) K/uL Baso # (Auto) (0.0-0.2) K/uL Neutrophils % (Manual) (50-75) % Band Neutrophils % (0-2) % Lymphocytes % (Manual) (20-40) % Monocytes % (Manual) (0-10) % Eosinophils % (Manual) (0-4) % Platelet Estimate (NORMAL) Hypochromasia (manual) Anisocytosis (manual) Target Cells PT (9.7-12.2) SECONDS INR APTT (21-34) SECONDS Sodium (132-148) mmol/L Potassium (3.6-5.2) mmol/L Chloride (98-107) mmol/L Carbon Dioxide (22-30) mmol/L Anion Gap (10-20) BUN (9-20) mg/dL Creatinine (0.8-1.5) mg/dL Est GFR ( Amer) Est GFR (Non-Af Amer) POC Glucose (mg/dL) 49 L (65-110) mg/dL Random Glucose (75-110) mg/dL Calcium (8.6-10.4) mg/dl Phosphorus (2.5-4.5) mg/dL Magnesium (1.6-2.3) mg/dL Total Bilirubin (0.2-1.3) mg/dL AST (17-59) U/L ALT (21-72) U/L Alkaline Phosphatase (38-126) U/L Total Protein (6.3-8.3) g/dL Albumin (3.5-5.0) g/dL Globulin (2.2-3.9) gm/dL Albumin/Globulin Ratio (1.0-2.1) Histoplasma Ab Imm Diff Negative (Negative) Histop Galactomannan Ag <0.5 ng/mL Aspergillus Antigen Not detected (Not Detected) Aspergillus flavus Ab (Negative) Aspergill fumigatus Ab (Negative) Aspergillus niger Ab (Negative) Aspergillus Index Value 0.13 (<0.50) Blood Type Antibody Screen 09/01/17 Range/Units 07:23 WBC (4.8-10.8) K/uL RBC (4.40-5.90) Mil/uL Hgb (12.0-18.0) g/dL Hct (35.0-51.0) % MCV (80.0-94.0) fL MCH (27.0-31.0) pg MCHC (33.0-37.0) g/dL RDW (11.5-14.5) % Plt Count (130-400) K/uL MPV (7.2-11.7) fL Neut % (Auto) (50.0-75.0) % Lymph % (Auto) (20.0-40.0) % King % (Auto) (0.0-10.0) % Eos % (Auto) (0.0-4.0) % Baso % (Auto) (0.0-2.0) % Neut # (Auto) (1.8-7.0) K/uL Lymph # (Auto) (1.0-4.3) K/uL King # (Auto) (0.0-0.8) K/uL Eos # (Auto) (0.0-0.7) K/uL Baso # (Auto) (0.0-0.2) K/uL Neutrophils % (Manual) (50-75) % Band Neutrophils % (0-2) % Lymphocytes % (Manual) (20-40) % Monocytes % (Manual) (0-10) % Eosinophils % (Manual) (0-4) % Platelet Estimate (NORMAL) Hypochromasia (manual) Anisocytosis (manual) Target Cells PT (9.7-12.2) SECONDS INR APTT (21-34) SECONDS Sodium (132-148) mmol/L Potassium (3.6-5.2) mmol/L Chloride (98-107) mmol/L Carbon Dioxide (22-30) mmol/L Anion Gap (10-20) BUN (9-20) mg/dL Creatinine (0.8-1.5) mg/dL Est GFR ( Amer) Est GFR (Non-Af Amer) POC Glucose (mg/dL) (65-110) mg/dL Random Glucose (75-110) mg/dL Calcium (8.6-10.4) mg/dl Phosphorus (2.5-4.5) mg/dL Magnesium (1.6-2.3) mg/dL Total Bilirubin (0.2-1.3) mg/dL AST (17-59) U/L ALT (21-72) U/L Alkaline Phosphatase (38-126) U/L Total Protein (6.3-8.3) g/dL Albumin (3.5-5.0) g/dL Globulin (2.2-3.9) gm/dL Albumin/Globulin Ratio (1.0-2.1) Histoplasma Ab Imm Diff (Negative) Histop Galactomannan Ag ng/mL Aspergillus Antigen (Not Detected) Aspergillus flavus Ab Negative (Negative) Aspergill fumigatus Ab Negative (Negative) Aspergillus niger Ab Negative (Negative) Aspergillus Index Value (<0.50) Blood Type Antibody Screen Laboratory Results - last 24 hr 09/01/17 09/01/17 09/01/17 07:23 07:25 19:16 WBC RBC Hgb Hct MCV MCH MCHC RDW Plt Count MPV Neut % (Auto) Lymph % (Auto) King % (Auto) Eos % (Auto) Baso % (Auto) Neut # (Auto) Lymph # (Auto) King # (Auto) Eos # (Auto) Baso # (Auto) Neutrophils % (Manual) Band Neutrophils % Lymphocytes % (Manual) Monocytes % (Manual) Eosinophils % (Manual) Platelet Estimate Hypochromasia (manual) Anisocytosis (manual) Target Cells PT INR APTT Sodium Potassium Chloride Carbon Dioxide Anion Gap BUN Creatinine Est GFR ( Amer) Est GFR (Non-Af Amer) POC Glucose (mg/dL) Random Glucose Calcium Phosphorus Magnesium Total Bilirubin AST ALT Alkaline Phosphatase Total Protein Albumin Globulin Albumin/Globulin Ratio Histoplasma Ab Imm Diff Negative Histop Galactomannan Ag <0.5 Aspergillus Antigen Not detected Aspergillus flavus Ab Negative Aspergill fumigatus Ab Negative Aspergillus niger Ab Negative Aspergillus Index Value 0.13 Blood Type Antibody Screen 09/06/17 09/06/17 09/06/17 17:44 17:46 18:19 WBC RBC Hgb Hct MCV MCH MCHC RDW Plt Count MPV Neut % (Auto) Lymph % (Auto) King % (Auto) Eos % (Auto) Baso % (Auto) Neut # (Auto) Lymph # (Auto) King # (Auto) Eos # (Auto) Baso # (Auto) Neutrophils % (Manual) Band Neutrophils % Lymphocytes % (Manual) Monocytes % (Manual) Eosinophils % (Manual) Platelet Estimate Hypochromasia (manual) Anisocytosis (manual) Target Cells PT INR APTT Sodium Potassium Chloride Carbon Dioxide Anion Gap BUN Creatinine Est GFR ( Amer) Est GFR (Non-Af Amer) POC Glucose (mg/dL) 49 L 52 L 127 H Random Glucose Calcium Phosphorus Magnesium Total Bilirubin AST ALT Alkaline Phosphatase Total Protein Albumin Globulin Albumin/Globulin Ratio Histoplasma Ab Imm Diff Histop Galactomannan Ag Aspergillus Antigen Aspergillus flavus Ab Aspergill fumigatus Ab Aspergillus niger Ab Aspergillus Index Value Blood Type Antibody Screen 09/06/17 09/07/17 09/07/17 23:43 05:24 06:06 WBC 7.6 RBC 2.56 L Hgb 7.1 L Hct 21.6 L MCV 84.2 MCH 27.7 MCHC 32.9 L RDW 17.3 H Plt Count 207 MPV 9.0 Neut % (Auto) 50.3 Lymph % (Auto) 25.9 King % (Auto) 23.0 H Eos % (Auto) 0.4 Baso % (Auto) 0.4 Neut # (Auto) 3.8 Lymph # (Auto) 2.0 King # (Auto) 1.7 H Eos # (Auto) 0.0 Baso # (Auto) 0.0 Neutrophils % (Manual) 53 Band Neutrophils % 3 H Lymphocytes % (Manual) 25 Monocytes % (Manual) 18 H Eosinophils % (Manual) 1 Platelet Estimate Normal Hypochromasia (manual) Slight Anisocytosis (manual) Slight Target Cells Slight PT INR APTT Sodium Potassium Chloride Carbon Dioxide Anion Gap BUN Creatinine Est GFR ( Amer) Est GFR (Non-Af Amer) POC Glucose (mg/dL) 84 84 Random Glucose Calcium Phosphorus Magnesium Total Bilirubin AST ALT Alkaline Phosphatase Total Protein Albumin Globulin Albumin/Globulin Ratio Histoplasma Ab Imm Diff Histop Galactomannan Ag Aspergillus Antigen Aspergillus flavus Ab Aspergill fumigatus Ab Aspergillus niger Ab Aspergillus Index Value Blood Type Antibody Screen 09/07/17 09/07/17 09/07/17 06:06 06:08 06:23 WBC RBC Hgb Hct MCV MCH MCHC RDW Plt Count MPV Neut % (Auto) Lymph % (Auto) King % (Auto) Eos % (Auto) Baso % (Auto) Neut # (Auto) Lymph # (Auto) King # (Auto) Eos # (Auto) Baso # (Auto) Neutrophils % (Manual) Band Neutrophils % Lymphocytes % (Manual) Monocytes % (Manual) Eosinophils % (Manual) Platelet Estimate Hypochromasia (manual) Anisocytosis (manual) Target Cells PT 22.0 H INR 2.0 APTT 43 H Sodium 146 Potassium 3.7 Chloride 118 H Carbon Dioxide 18 L Anion Gap 15 BUN 22 H Creatinine 0.9 Est GFR ( Amer) > 60 Est GFR (Non-Af Amer) > 60 POC Glucose (mg/dL) Random Glucose 86 Calcium 6.8 L Phosphorus 3.7 Magnesium 2.0 Total Bilirubin 4.3 H AST 32 ALT 11 L D Alkaline Phosphatase 53 Total Protein 6.1 L Albumin 1.7 L Globulin 4.4 H Albumin/Globulin Ratio 0.4 L Histoplasma Ab Imm Diff Histop Galactomannan Ag Aspergillus Antigen Aspergillus flavus Ab Aspergill fumigatus Ab Aspergillus niger Ab Aspergillus Index Value Blood Type O POSITIVE Antibody Screen Negative 09/07/17 09/07/17 09/07/17 11:13 11:14 11:44 WBC RBC Hgb Hct MCV MCH MCHC RDW Plt Count MPV Neut % (Auto) Lymph % (Auto) King % (Auto) Eos % (Auto) Baso % (Auto) Neut # (Auto) Lymph # (Auto) King # (Auto) Eos # (Auto) Baso # (Auto) Neutrophils % (Manual) Band Neutrophils % Lymphocytes % (Manual) Monocytes % (Manual) Eosinophils % (Manual) Platelet Estimate Hypochromasia (manual) Anisocytosis (manual) Target Cells PT INR APTT Sodium Potassium Chloride Carbon Dioxide Anion Gap BUN Creatinine Est GFR ( Amer) Est GFR (Non-Af Amer) POC Glucose (mg/dL) 63 L 62 L 184 H Random Glucose Calcium Phosphorus Magnesium Total Bilirubin AST ALT Alkaline Phosphatase Total Protein Albumin Globulin Albumin/Globulin Ratio Histoplasma Ab Imm Diff Histop Galactomannan Ag Aspergillus Antigen Aspergillus flavus Ab Aspergill fumigatus Ab Aspergillus niger Ab Aspergillus Index Value Blood Type Antibody Screen 09/07/17 17:34 WBC RBC Hgb Hct MCV MCH MCHC RDW Plt Count MPV Neut % (Auto) Lymph % (Auto) King % (Auto) Eos % (Auto) Baso % (Auto) Neut # (Auto) Lymph # (Auto) King # (Auto) Eos # (Auto) Baso # (Auto) Neutrophils % (Manual) Band Neutrophils % Lymphocytes % (Manual) Monocytes % (Manual) Eosinophils % (Manual) Platelet Estimate Hypochromasia (manual) Anisocytosis (manual) Target Cells PT INR APTT Sodium Potassium Chloride Carbon Dioxide Anion Gap BUN Creatinine Est GFR ( Amer) Est GFR (Non-Af Amer) POC Glucose (mg/dL) 80 Random Glucose Calcium Phosphorus Magnesium Total Bilirubin AST ALT Alkaline Phosphatase Total Protein Albumin Globulin Albumin/Globulin Ratio Histoplasma Ab Imm Diff Histop Galactomannan Ag Aspergillus Antigen Aspergillus flavus Ab Aspergill fumigatus Ab Aspergillus niger Ab Aspergillus Index Value Blood Type Antibody Screen Critical Care Progress Note - Nutrition Nutrition: Nutrition Category Date Time Status NPO Diet [DIET] Diets 09/07/17 Dinner Active Assessment/Plan (1) Respiratory failure Current Visit: Yes Status: Acute (2) Anemia Current Visit: Yes Status: Acute (3) Pneumonia Current Visit: No Status: Acute Attending/Attestation - Attestation I have personally seen and examined this patient.: Yes I have fully participated in the care of the patient.: Yes I have reviewed all pertinent clinical information: Yes Notes (Text): 09/07/17 18:00 Patient seen and examined. Status post tracheostomy Status post transfusion of packed RBCs Continue IV antibiotics Continue PEG feeding"
[2017-09-07] MEDS ORDERED: Dextrose 50% SYRINGE Inj (50 ml) IV STA (11:14)
[2017-09-07] MEDS ORDERED: Lidocaine/Epinephrine 1% 1:100000 10 ML IJ ONE (11:50)
--- NOTE | 2017-09-07 13:07 | PCM.SURG1 ---
Surgeon's Initial Post Op Note - Surgeon's Notes Surgeon: Dr. Sprague Shock Absorption Floor Layer: Dr. Cr PGY2, Dr. Camacho PGY2 Type of Anesthesia: General Endo Pre-Operative Diagnosis: Respiratory Failure Operative Findings: See Operative Dictation Post-Operative Diagnosis: Respiratory Failure Operation Performed: Percutaneous Tracheostomy Specimen/Specimens Removed: Endotracheal cast Estimated Blood Loss: EBL {In ML}: 5 Blood Products Given: N/A Drains Used: No Drains Post-Op Condition: Good Date of Surgery/Procedure: 09/07/17 Time of Surgery/Procedure: 13:06
--- NOTE | 2017-09-07 13:59 | CP.PCM.PN ---
Subjective - Date & Time of Evaluation Date of Evaluation: 09/06/17 Time of Evaluation: 18:00 - Subjective Subjective: Pt seen and examined at bedside, remains in resp distress on MV, non weanable, no response Objective - Vital Signs/Intake and Output Vital Signs (last 24 hours): Temp Pulse Resp BP Pulse Ox 98.1 F 89 18 102/55 L 99 09/07/17 13:19 09/07/17 13:44 09/07/17 13:44 09/07/17 13:44 09/07/17 13:44 Intake and Output: 09/07/17 09/07/17 06:59 18:59 Intake Total 960 735 Output Total 635 165 Balance 325 570 - Medications Medications: Current Medications Acetaminophen (Tylenol 650 Mg Supp) 650 mg MO Q4 PRN PRN Reason: Fever >100.4 F Last Admin: 09/05/17 12:32 Dose: 650 mg Albuterol/Ipratropium (Duoneb 3 Mg/0.5 Mg (3 Ml) Ud) 3 ml INH RQ6 [facility] Last Admin: 09/07/17 13:29 Dose: 3 ml Amantadine HCl (Symmetrel) 100 mg PO DAILY [facility] Last Admin: 09/07/17 09:45 Dose: Not Given Bisacodyl (Dulcolax) 10 mg MO ONCE PRN PRN Reason: consipation Carbamazepine (Tegretol) 100 mg PEG Q8 [facility] Last Admin: 09/07/17 05:07 Dose: 100 mg Enoxaparin Sodium (Lovenox) 40 mg SC DAILY [facility] Last Admin: 09/06/17 10:43 Dose: 40 mg Metronidazole (Flagyl) 500 mg in 100 mls @ 100 mls/hr IVPB Q8 [facility] PRN Reason: Protocol Last Admin: 09/07/17 13:43 Dose: 100 mls/hr Micafungin Sodium 100 mg/ (Sodium Chloride) 100 mls @ 100 mls/hr IV Q24H [facility] PRN Reason: Protocol Last Admin: 09/06/17 15:54 Dose: 100 mls/hr Vancomycin/Sodium Chloride (Vancomycin 1 Gm/Ns 200 Ml) 1 gm in 200 mls @ 133 mls/hr IVPB Q24H [facility] PRN Reason: Protocol Stop: 09/11/17 18:01 Last Admin: 09/06/17 18:09 Dose: 133 mls/hr Dextrose/Sodium Chloride (Dextrose 5%/0.9% Ns 1000 Ml) 1,000 mls @ 50 mls/hr IV .Q20H [facility] Stop: 09/08/17 03:29 Last Admin: 09/07/17 07:49 Dose: 50 mls/hr Lorazepam (Ativan) 1 mg IVP Q4H PRN PRN Reason: Anxiety Last Admin: 09/06/17 17:02 Dose: 1 mg Moxifloxacin HCl (Avelox) 400 mg PO Q24H [facility] Last Admin: 09/06/17 13:59 Dose: 400 mg Pantoprazole Sodium (Protonix Susp) 40 mg PO DAILY [facility] Last Admin: 09/07/17 09:45 Dose: Not Given Rosuvastatin Calcium (Crestor) 5 mg PO HS [facility] Last Admin: 09/06/17 21:36 Dose: 5 mg Valproate Sodium (Depakene Oral Soln) 250 mg PEG Q12 [facility] Last Admin: 09/07/17 09:44 Dose: Not Given - Labs Labs: 09/07/17 06:06 09/07/17 06:06 PT 22.0 SECONDS (9.7-12.2) H 09/07/17 06:08 INR 2.0 09/07/17 06:08 APTT 43 SECONDS (21-34) H 09/07/17 06:08 Assessment and Plan (1) Sepsis Status: Acute (2) Fever Status: Acute (3) Seizure disorder Status: Acute (4) COPD (chronic obstructive pulmonary disease) Status: Chronic (5) PVD (peripheral vascular disease) Status: Chronic (6) Respiratory failure Status: Acute
--- NOTE | 2017-09-07 14:08 | CP.PCM.PN ---
Subjective - Date & Time of Evaluation Date of Evaluation: 09/07/17 Time of Evaluation: 02:05 - Subjective Subjective: dictated Objective - Vital Signs/Intake and Output Vital Signs (last 24 hours): Temp Pulse Resp BP Pulse Ox 98.1 F 89 18 102/55 L 99 09/07/17 13:19 09/07/17 13:44 09/07/17 13:44 09/07/17 13:44 09/07/17 13:44 Intake and Output: 09/07/17 09/07/17 06:59 18:59 Intake Total 960 735 Output Total 635 165 Balance 325 570 - Medications Medications: Current Medications Acetaminophen (Tylenol 650 Mg Supp) 650 mg MD Q4 PRN PRN Reason: Fever >100.4 F Last Admin: 09/05/17 12:32 Dose: 650 mg Albuterol/Ipratropium (Duoneb 3 Mg/0.5 Mg (3 Ml) Ud) 3 ml INH RQ6 [facility] Last Admin: 09/07/17 13:29 Dose: 3 ml Amantadine HCl (Symmetrel) 100 mg PO DAILY [facility] Last Admin: 09/07/17 09:45 Dose: Not Given Bisacodyl (Dulcolax) 10 mg MD ONCE PRN PRN Reason: consipation Carbamazepine (Tegretol) 100 mg PEG Q8 [facility] Last Admin: 09/07/17 05:07 Dose: 100 mg Enoxaparin Sodium (Lovenox) 40 mg SC DAILY [facility] Last Admin: 09/06/17 10:43 Dose: 40 mg Metronidazole (Flagyl) 500 mg in 100 mls @ 100 mls/hr IVPB Q8 [facility] PRN Reason: Protocol Last Admin: 09/07/17 13:43 Dose: 100 mls/hr Micafungin Sodium 100 mg/ (Sodium Chloride) 100 mls @ 100 mls/hr IV Q24H [facility] PRN Reason: Protocol Last Admin: 09/06/17 15:54 Dose: 100 mls/hr Vancomycin/Sodium Chloride (Vancomycin 1 Gm/Ns 200 Ml) 1 gm in 200 mls @ 133 mls/hr IVPB Q24H [facility] PRN Reason: Protocol Stop: 09/11/17 18:01 Last Admin: 09/06/17 18:09 Dose: 133 mls/hr Dextrose/Sodium Chloride (Dextrose 5%/0.9% Ns 1000 Ml) 1,000 mls @ 50 mls/hr IV .Q20H [facility] Stop: 09/08/17 03:29 Last Admin: 09/07/17 07:49 Dose: 50 mls/hr Lorazepam (Ativan) 1 mg IVP Q4H PRN PRN Reason: Anxiety Last Admin: 09/06/17 17:02 Dose: 1 mg Moxifloxacin HCl (Avelox) 400 mg PO Q24H [facility] Last Admin: 09/06/17 13:59 Dose: 400 mg Pantoprazole Sodium (Protonix Susp) 40 mg PO DAILY [facility] Last Admin: 09/07/17 09:45 Dose: Not Given Rosuvastatin Calcium (Crestor) 5 mg PO HS [facility] Last Admin: 09/06/17 21:36 Dose: 5 mg Valproate Sodium (Depakene Oral Soln) 250 mg PEG Q12 [facility] Last Admin: 09/07/17 09:44 Dose: Not Given - Labs Labs: 09/07/17 06:06 09/07/17 06:06 PT 22.0 SECONDS (9.7-12.2) H 09/07/17 06:08 INR 2.0 09/07/17 06:08 APTT 43 SECONDS (21-34) H 09/07/17 06:08
[2017-09-07] MEDS: Micafungin 100 MG in Sodium Chloride 0.9% 100 ML IV SCH (15:13)
--- NOTE | 2017-09-07 16:04 | RAD ---
HISTORY: s/p trach COMPARISON: 09/06/2017 FINDINGS: LUNGS: Prior endotracheal tube no longer seen. Currently tracheostomy tube in placeDeformity of right upper ribs -with contiguous right pleural parenchymal opacity coalescent the cystic changes here. No interval change in this appearance appreciated. Chronic cystic pleural-parenchymal pathology here right sided volume loss re- suggested. PLEURA: Small bilateral pleural effusions -similar-appearing CARDIOVASCULAR: Mild cardiomegalyThe left PICC line terminates in the SVC. OSSEOUS STRUCTURES: Right hemithoracic postsurgical changes VISUALIZED UPPER ABDOMEN: Normal. OTHER FINDINGS: None. IMPRESSION: Oval tracheostomy tube placement. No other interval changes appreciated. Prior changes noted below The right lung volume changes, right rib deformity/ postsurgical changes with contiguous right pleural parenchymal chronic appearing pathology is similar. The cystic/ coalescent air-fluid process here compatible with this. Correlation with past pulmonary intervention and preexisting medical history needed.
[2017-09-07] MEDS: Vancomycin 1 gm/NS 200 ml 1 GM/200 ML BAG IVPB SCH (17:08)
--- NOTE | 2017-09-08 00:37 | OP ---
PROCEDURE DATE: 09/07/2017 PREOPERATIVE DIAGNOSIS: Respiratory failure. POSTOPERATIVE DIAGNOSIS: Respiratory failure. PROCEDURE CARRIED OUT: Percutaneous tracheostomy. SURGEON: Per Sprague Jr., MD SMALL ARMS REPAIRER: None. ANESTHESIOLOGIST: Janet Goddard MD INDICATION: The patient is an elderly man with respiratory failure, unable to be weaned. OPERATIVE FINDINGS: Initially, there was a cath inside the endotracheal tube, tried to be removed by bronchoscopy. This appeared to be a cath of the endotracheal tube. Secondarily, after replacing the tube, which was done using standard techniques by placing a needle, a wire, and a dilator. The catheter was secured to the skin with sutures. The procedure was terminated. Excellent flow was checked. We went with bronchoscopy again and checked to see that there was good passage down to the marii. The procedure was then terminated. Per Sprague Jr., MD
[2017-09-08] MEDS: Albuterol-Ipratrop 3 mg / 0.5 (3 ml) UD INH SCH ×4 (01:37→19:52)
--- NOTE | 2017-09-08 03:18 | PN ---
DATE: 09/07/2017 SUBJECTIVE: The patient was seen today. Yesterday, he was having a PICC line inserted. He went for tracheostomy this morning and is status post trach. The patient remains in the vent. They were not able to wean him. He had fevers yesterday. A septic workup was done. PHYSICAL EXAMINATION: VITAL SIGNS: T-max is 99, heart rate of 101, respiratory rate remains still on the vent and remains unresponsive, FiO2 of 40, and saturations 98%. GENERAL: He is sedated. Trach is present. NECK: Supple. LUNGS: Have bilateral occasional rhonchi. HEART: S1 and S2, regular. ABDOMEN: Soft, nontender. No guarding, no rigidity present. EXTREMITIES: Right AKA present. Left leg has multiple dressings, but I had seen them initially, there was a superficial wound. We will try to evaluate them on next visit. LABORATORY DATA: White count is 7.6 today, hemoglobin 7.1, hematocrit 21.6, platelet count is 207, so he remains anemic. INR is 2. Sodium 146, potassium 3.7, chloride of 118, CO2 is 18, BUN is 22, creatinine is 0.9. The patient is on Avelox but is switched to oral. He is on micafungin and moxifloxacin. I had added vancomycin yesterday. He is also on Flagyl. So, he is on 4 antibiotics at this time and still remains acutely ill with status post trach. Micro lo, his AFB from bronchoscopy was negative. Chest x-ray today shows oval tracheostomy tube placement, no other interval changes appreciated, right volume lung deformity, post-surgical changes, and continuous right pleural parenchymal chronic appearing pathology similar. The ____ air fluid process, he had compatible with this, correlation with past pulmonary intervention and pre-existing medical history needed. Something like that. So, we will follow these, continue antibiotics at this time and will review him again. He is status post trach with respiratory failure, he came in. He has a ____right leg_ amputation and came in with fevers which is now controlled, and he had Mycoplasma pneumoniae. Bladimir Muñoz MD [facility] # [id number] MAGALY
[2017-09-08] MEDS: metroNIDAZOLE IV 500 mg/100 ml 500 MG/100 ML BAG IVPB SCH ×3 (05:05→21:06)
[2017-09-08] MEDS: carBAMazepine Chew Tab 100 MG Chew Tab PEG SCH ×3 (05:06→21:05)
[2017-09-08 05:56] LABS: ABG ALLEN TEST POS; ARTERIAL BLOOD GAS HCO3 20.2 mmol/L (21-28); ARTERIAL BLOOD GAS HEMOGLOBIN 8.8 g/dL (11.7-17.4); ARTERIAL BLOOD GAS O2 SAT 100.2 % (95-98); ARTERIAL BLOOD GAS PCO2 31 mm/Hg (35-45); ARTERIAL BLOOD GAS PH 7.38 (7.35-7.45); ARTERIAL BLOOD GAS PO2 100 mm/Hg (80-100); ARTERIAL BLOOD GAS TCO2 19.3 mmol/L (22-28)
[2017-09-08 06:21] LABS: BASO % 0.4 % (0.0-2.0); EOS % 0.4 % (0.0-4.0); HEMOGLOBIN 8.2 g/dL (12.0-18.0); LYMPH # 1.6 K/uL (1.0-4.3); LYMPH % 19.7 % (20.0-40.0); MEAN CELL VOLUME 84.3 fL (80.0-94.0); MEAN CORPUSCULAR HEMOGLOBIN 28.4 pg (27.0-31.0); MEAN CORPUSCULAR HGB CONC 33.7 g/dL (33.0-37.0); MEAN PLATELET VOLUME 8.6 fL (7.2-11.7); MONO # 1.8 K/uL (0.0-0.8); MONO % 22.1 % (0.0-10.0); NEUT # 4.7 K/uL (1.8-7.0); NEUT % 57.4 % (50.0-75.0); NRBC % 0.1 % (0.0-2.0); PLATELET COUNT 208 K/uL (130-400); RBC 2.88 Mil/uL (4.40-5.90); WHITE BLOOD COUNT 8.1 K/uL (4.8-10.8)
[2017-09-08 06:36] LABS: ALB/GLOB RATIO 0.4 (1.0-2.1); ALBUMIN 1.7 g/dL (3.5-5.0); ALT/SGPT < 6 U/L (21-72); AST/SGOT 35 U/L (17-59); BLOOD UREA NITROGEN 20 mg/dL (9-20); CALCIUM 6.8 mg/dl (8.6-10.4); GFR AFRICAN-AMERICAN > 60; GFR NON-AFRICAN AMERICAN > 60
[2017-09-08 08:01] LABS: ANISOCYTOSIS SLIGHT; BANDS 9 % (0-2); LYMPHOCYTE 12 % (20-40); MONOCYTE 21 % (0-10); NEUTROPHIL 58 % (50-75); NUCLEATED RED BLOOD CELL 1 % (0-0); PLATELET ESTIMATE NORMAL (NORMAL); TOTAL CELLS COUNTED 100
[2017-09-08 08:02] LABS: HYPOCHROMIC SLIGHT; POIKILOCYTOSIS SLIGHT; TARGET CELLS SLIGHT
--- NOTE | 2017-09-08 09:17 | CP.PCM.PN ---
Subjective - Date & Time of Evaluation Date of Evaluation: 09/07/17 Time of Evaluation: 19:00 - Subjective Subjective: Pt is for trach, pt is afebrile, he is coughing and congested, he is on ventilaotor,non weanable Objective - Vital Signs/Intake and Output Vital Signs (last 24 hours): Temp Pulse Resp BP Pulse Ox 99 F 95 H 39 H 86/50 L 95 09/08/17 04:00 09/08/17 08:00 09/08/17 08:00 09/08/17 07:56 09/08/17 08:00 Intake and Output: 09/08/17 09/08/17 06:59 18:59 Intake Total 1420 Output Total 1250 80 Balance 170 -80 - Medications Medications: Current Medications Acetaminophen (Tylenol 650 Mg Supp) 650 mg W[place] Q4 PRN PRN Reason: Fever >100.4 F Last Admin: 09/05/17 12:32 Dose: 650 mg Albumin Human (Albumin Human 25% (12.5 Gm/50 Ml)) 12.5 gm IV Q8 [facility] Stop: 09/08/17 22:01 Albuterol/Ipratropium (Duoneb 3 Mg/0.5 Mg (3 Ml) Ud) 3 ml INH RQ6 [facility] Last Admin: 09/08/17 08:46 Dose: 3 ml Amantadine HCl (Symmetrel) 100 mg PO DAILY [facility] Last Admin: 09/07/17 09:45 Dose: Not Given Bisacodyl (Dulcolax) 10 mg W[place] ONCE PRN PRN Reason: consipation Carbamazepine (Tegretol) 100 mg PEG Q8 [facility] Last Admin: 09/08/17 05:06 Dose: 100 mg Enoxaparin Sodium (Lovenox) 40 mg SC DAILY [facility] Last Admin: 09/06/17 10:43 Dose: 40 mg Metronidazole (Flagyl) 500 mg in 100 mls @ 100 mls/hr IVPB Q8 [facility] PRN Reason: Protocol Last Admin: 09/08/17 05:05 Dose: 100 mls/hr Micafungin Sodium 100 mg/ (Sodium Chloride) 100 mls @ 100 mls/hr IV Q24H [facility] PRN Reason: Protocol Last Admin: 09/07/17 15:13 Dose: 100 mls/hr Vancomycin/Sodium Chloride (Vancomycin 1 Gm/Ns 200 Ml) 1 gm in 200 mls @ 133 mls/hr IVPB Q24H [facility] PRN Reason: Protocol Stop: 09/11/17 18:01 Last Admin: 09/07/17 17:08 Dose: 133 mls/hr Lorazepam (Ativan) 1 mg IVP Q4H PRN PRN Reason: Anxiety Last Admin: 09/06/17 17:02 Dose: 1 mg Moxifloxacin HCl (Avelox) 400 mg PO Q24H [facility] Last Admin: 09/07/17 14:47 Dose: 400 mg Pantoprazole Sodium (Protonix Susp) 40 mg PO DAILY [facility] Last Admin: 09/07/17 09:45 Dose: Not Given Potassium Chloride (Potassium Chloride Oral Soln) 40 meq PO ONCE ONE Stop: 09/08/17 10:01 Rosuvastatin Calcium (Crestor) 5 mg PO HS [facility] Last Admin: 09/07/17 21:16 Dose: 5 mg Valproate Sodium (Depakene Oral Soln) 250 mg PEG Q12 [facility] Last Admin: 09/07/17 21:16 Dose: 250 mg - Labs Labs: 09/08/17 06:14 09/08/17 06:13 PT 22.0 SECONDS (9.7-12.2) H 09/07/17 06:08 INR 2.0 09/07/17 06:08 APTT 43 SECONDS (21-34) H 09/07/17 06:08 - Constitutional Appears: No Acute Distress - Head Exam Head Exam: ATRAUMATIC, NORMAL INSPECTION, NORMOCEPHALIC - Eye Exam Eye Exam: EOMI, Normal appearance, PERRL Pupil Exam: NORMAL ACCOMODATION, PERRL - Respiratory Exam Respiratory Exam: Decreased Breath Sounds, Rales, Rhonchi - Cardiovascular Exam Cardiovascular Exam: REGULAR RHYTHM, +S1, +S2. absent: Murmur - GI/Abdominal Exam GI & Abdominal Exam: Soft, Normal Bowel Sounds. absent: Tenderness - Rectal Exam Rectal Exam: Deferred Assessment and Plan (1) Sepsis Status: Acute (2) Fever Status: Acute (3) Seizure disorder Status: Acute (4) COPD (chronic obstructive pulmonary disease) Status: Chronic (5) PVD (peripheral vascular disease) Status: Chronic (6) Respiratory failure Status: Acute
[2017-09-08] MEDS: Valproic Acid 250 mg/5 ml UD Cup PEG SCH ×2 (09:19→21:05)
[2017-09-08] MEDS: Pantoprazole 40 mg Susp UD PO SCH (09:21)
--- NOTE | 2017-09-08 09:25 | RAD ---
HISTORY: vented, possible tracheostomy COMPARISON: No prior. FINDINGS: LUNGS: Right upper pleural-parenchymal opacity with cystic change redemonstrated. PLEURA: Right upper pleural-parenchymal opacity with cystic change redemonstrated. Small bilateral pleural effusions. CARDIOVASCULAR: Cardiomediastinal silhouette unchanged. OSSEOUS STRUCTURES: Unchanged. Right rib hardware redemonstrated. VISUALIZED UPPER ABDOMEN: Normal. OTHER FINDINGS: Tracheostomy, unchanged. Left upper extremity PICC, unchanged. IMPRESSION: Stable tracheostomy and PICC. Stable pleural parenchymal findings. Small bilateral pleural effusion.
[2017-09-08] MEDS: Enoxaparin 40 mg Syringe SC SCH (09:28)
[2017-09-08] MEDS: Amantadine 50 mg/5 ml Syrup (473 ml) PO SCH (09:41)
[2017-09-08] MEDS: Albumin Human 25% (12.5 gm/50 ml) IV SCH ×3 (09:52→21:04)
[2017-09-08] MEDS ORDERED: Potassium Chloride 20 mEq/15 ml LIQ UD PO ONE (10:00)
--- NOTE | 2017-09-08 10:56 | CP.PCM.PN ---
Subjective - Date & Time of Evaluation Date of Evaluation: 09/08/17 Time of Evaluation: 10:54 - Subjective Subjective: SURGERY NOTE FOR DR. SHEN 77M seen and examined at bedside. Patient currently on mechanical ventilation. No acute events. OR yesterday for tracheostomy. Objective - Vital Signs/Intake and Output Vital Signs (last 24 hours): Temp Pulse Resp BP Pulse Ox 99 F 98 H 24 91/49 L 97 09/08/17 04:00 09/08/17 10:00 09/08/17 10:00 09/08/17 09:56 09/08/17 10:00 Intake and Output: 09/08/17 09/08/17 06:59 18:59 Intake Total 1420 270 Output Total 1250 105 Balance 170 165 - Medications Medications: Current Medications Acetaminophen (Tylenol 650 Mg Supp) 650 mg [place] Q4 PRN PRN Reason: Fever >100.4 F Last Admin: 09/05/17 12:32 Dose: 650 mg Albumin Human (Albumin Human 25% (12.5 Gm/50 Ml)) 12.5 gm IV Q8 [facility] Stop: 09/08/17 22:01 Last Admin: 09/08/17 09:52 Dose: 12.5 gm Albuterol/Ipratropium (Duoneb 3 Mg/0.5 Mg (3 Ml) Ud) 3 ml INH RQ6 [facility] Last Admin: 09/08/17 08:46 Dose: 3 ml Amantadine HCl (Symmetrel) 100 mg PO DAILY [facility] Last Admin: 09/08/17 09:41 Dose: 100 mg Bisacodyl (Dulcolax) 10 mg [place] ONCE PRN PRN Reason: consipation Carbamazepine (Tegretol) 100 mg PEG Q8 [facility] Last Admin: 09/08/17 05:06 Dose: 100 mg Enoxaparin Sodium (Lovenox) 40 mg SC DAILY [facility] Last Admin: 09/08/17 09:28 Dose: 40 mg Metronidazole (Flagyl) 500 mg in 100 mls @ 100 mls/hr IVPB Q8 [facility] PRN Reason: Protocol Last Admin: 09/08/17 05:05 Dose: 100 mls/hr Micafungin Sodium 100 mg/ (Sodium Chloride) 100 mls @ 100 mls/hr IV Q24H [facility] PRN Reason: Protocol Last Admin: 09/07/17 15:13 Dose: 100 mls/hr Vancomycin/Sodium Chloride (Vancomycin 1 Gm/Ns 200 Ml) 1 gm in 200 mls @ 133 mls/hr IVPB Q24H [facility] PRN Reason: Protocol Stop: 09/11/17 18:01 Last Admin: 09/07/17 17:08 Dose: 133 mls/hr Lorazepam (Ativan) 1 mg IVP Q4H PRN PRN Reason: Anxiety Last Admin: 09/06/17 17:02 Dose: 1 mg Moxifloxacin HCl (Avelox) 400 mg PO Q24H [facility] Last Admin: 09/07/17 14:47 Dose: 400 mg Pantoprazole Sodium (Protonix Susp) 40 mg PO DAILY [facility] Last Admin: 09/08/17 09:21 Dose: 40 mg Rosuvastatin Calcium (Crestor) 5 mg PO HS [facility] Last Admin: 09/07/17 21:16 Dose: 5 mg Valproate Sodium (Depakene Oral Soln) 250 mg PEG Q12 [facility] Last Admin: 09/08/17 09:19 Dose: 250 mg - Labs Labs: 09/08/17 06:14 09/08/17 06:13 PT 22.0 SECONDS (9.7-12.2) H 09/07/17 06:08 INR 2.0 09/07/17 06:08 APTT 43 SECONDS (21-34) H 09/07/17 06:08 - Constitutional Appears: Non-toxic, No Acute Distress - Respiratory Exam Respiratory Exam: Clear to Ausculation Bilateral, NORMAL BREATHING PATTERN Additional comments: trach in place sutures in place - Cardiovascular Exam Cardiovascular Exam: REGULAR RHYTHM, +S1, +S2 - GI/Abdominal Exam GI & Abdominal Exam: Soft. absent: Distended, Firm, Guarding, Rigid, Tenderness - Neurological Exam Neurological Exam: Alert, Awake Assessment and Plan - Assessment and Plan (Free Text) Assessment: 77M s/p tracheostomy POD1 Plan: - Remove sutures in 10 days - Continue wean trials Further recs discuss with Dr Shen
--- NOTE | 2017-09-08 11:06 | CP.CCUPN ---
"<Tita Xie - Last Filed: 09/08/17 11:02> CCU Subjective - Physician Review Subjective (Free Text): Patient was seen and examined at bedside. Remains on PRVC continued Rate 18, FiO2 40%, TV 400, PEEP 5. Patient remains sugglish, responds to pain. ROS unattainable. S/P tracheostomy 09/07/17. Plan for LTAC - pending case management CCU Objective - Vital Signs / Intake & Output Vital Signs (Last 4 hours): Vital Signs Pulse Resp BP Pulse Ox 09/08/17 10:00 98 H 24 97 09/08/17 09:56 100 H 35 H 91/49 L 94 L 09/08/17 09:00 96 H 25 H 97 09/08/17 08:56 94 H 22 86/51 L 98 09/08/17 08:00 95 H 39 H 95 09/08/17 07:56 94 H 14 86/50 L 96 Intake and Output (Last 8hrs): Intake & Output 09/07/17 09/08/17 09/08/17 22:59 06:59 14:59 Intake Total 1210 1010 270 Output Total 360 1075 105 Balance 850 -65 165 Weight 133 lb 1.6 oz Intake: Intake, IV Amount 650 450 150 Left Medial Port PICC 650 450 150 Tube Feeding 360 360 120 Other 200 200 Output: Urine 360 675 105 Urethral (Brown) 360 675 105 Stool 0 400 - Physical Exam Head: Positive for: Atraumatic, Normocephalic Pupils: Positive for: Sluggish Mouth: Positive for: Dry. Negative for: Moist Mucous Membranes Neck: Positive for: Other (tracheostomy ) Respiratory/Chest: Positive for: Clear to Auscultation, Decreased Breath Sounds (RUL ), Other (Intubated) Cardiovascular: Positive for: Normal S1, S2. Negative for: Tachycardic Abdomen: Positive for: Normal Bowel Sounds. Negative for: Distention Neurological: Negative for: GCS=15 (10T) Skin: Positive for: Warm, Dry, Normal Color. Negative for: Rashes Psychiatric: Negative for: Alert - Medications Active Medications: Active Medications Generic Name Dose Route Start Last Admin Trade Name Freq PRN Reason Stop Dose Admin Acetaminophen 650 mg 08/25/17 17:20 09/05/17 12:32 Tylenol 650 Mg Supp W[place] 650 mg Q4 PRN Administration Fever >100.4 F Albumin Human 12.5 gm 09/08/17 10:00 09/08/17 09:52 Albumin Human 25% (12.5 Gm/50 Ml) IV 09/08/17 22:01 12.5 gm Q8 AMY Administration Albuterol/Ipratropium 3 ml 08/28/17 08:00 09/08/17 08:46 Duoneb 3 Mg/0.5 Mg (3 Ml) Ud INH 3 ml RQ6 AMY Administration Amantadine HCl 100 mg 09/05/17 10:00 09/08/17 09:41 Symmetrel PO 100 mg DAILY AMY Administration Bisacodyl 10 mg 08/29/17 08:30 Dulcolax W[place] ONCE PRN consipation Carbamazepine 100 mg 08/24/17 22:00 09/08/17 05:06 Tegretol PEG 100 mg Q8 AMY Administration Enoxaparin Sodium 40 mg 08/24/17 18:00 09/08/17 09:28 Lovenox SC 40 mg DAILY AMY Administration Metronidazole 500 mg in 100 mls @ 100 mls/hr 08/31/17 14:00 09/08/17 05:05 Flagyl IVPB 100 mls/hr Q8 AMY Administration Protocol Micafungin Sodium 100 mg/ 100 mls @ 100 mls/hr 09/01/17 16:00 09/07/17 15:13 Sodium Chloride IV 100 mls/hr Q24H AMY Administration Protocol Vancomycin/Sodium Chloride 1 gm in 200 mls @ 133 mls/hr 09/06/17 18:00 17:08 Vancomycin 1 Gm/Ns 200 Ml IVPB 09/11/17 18:01 133 mls/hr Q24H AMY Administration Protocol Lorazepam 1 mg 09/03/17 01:11 09/06/17 17:02 Ativan IVP 1 mg Q4H PRN Administration Anxiety Moxifloxacin HCl 400 mg 09/01/17 15:00 09/07/17 14:47 Avelox PO 400 mg Q24H AMY Administration Pantoprazole Sodium 40 mg 08/29/17 10:00 09/08/17 09:21 Protonix Susp PO 40 mg DAILY AMY Administration Rosuvastatin Calcium 5 mg 08/24/17 22:00 09/07/17 21:16 Crestor PO 5 mg HS AMY Administration Valproate Sodium 250 mg 09/02/17 22:00 09/08/17 09:19 Depakene Oral Soln PEG 250 mg Q12 AMY Administration - Patient Studies Lab Studies: Microbiology Studies 09/06/17 14:00 Blood Culture - Preliminary Blood-Thru Central Line NO GROWTH AFTER 24 HOURS 09/06/17 14:00 Blood Culture - Preliminary Blood-Thru Central Line NO GROWTH AFTER 24 HOURS 09/06/17 12:09 Urine Culture - Final Urine,Brown No Growth (<1,000 CFU/ML) Lab Studies 09/08/17 09/08/17 09/08/17 Range/Units 06:14 06:13 05:29 WBC 8.1 (4.8-10.8) K/uL RBC 2.88 L (4.40-5.90) Mil/uL Hgb 8.2 L (12.0-18.0) g/dL Hct 24.3 L (35.0-51.0) % MCV 84.3 (80.0-94.0) fL MCH 28.4 (27.0-31.0) pg MCHC 33.7 (33.0-37.0) g/dL RDW 17.0 H (11.5-14.5) % Plt Count 208 (130-400) K/uL MPV 8.6 (7.2-11.7) fL Neut % (Auto) 57.4 (50.0-75.0) % Lymph % (Auto) 19.7 L (20.0-40.0) % [place] % (Auto) 22.1 H (0.0-10.0) % Eos % (Auto) 0.4 (0.0-4.0) % Baso % (Auto) 0.4 (0.0-2.0) % Neut # (Auto) 4.7 (1.8-7.0) K/uL Lymph # (Auto) 1.6 (1.0-4.3) K/uL [place] # (Auto) 1.8 H (0.0-0.8) K/uL Eos # (Auto) 0.0 (0.0-0.7) K/uL Baso # (Auto) 0.0 (0.0-0.2) K/uL Neutrophils % (Manual) 58 (50-75) % Band Neutrophils % 9 H (0-2) % Lymphocytes % (Manual) 12 L (20-40) % Monocytes % (Manual) 21 H (0-10) % Nucleated RBC % 1 H (0-0) % Platelet Estimate Normal (NORMAL) Hypochromasia (manual) Slight Poikilocytosis (manual Slight Anisocytosis (manual) Slight Target Cells Slight Puncture Site pCO2 (35-45) mm/Hg pO2 (80-100) mm/Hg HCO3 (21-28) mmol/L ABG pH (7.35-7.45) ABG Total CO2 (22-28) mmol/L ABG O2 Saturation (95-98) % ABG Base Excess (-2.0-3.0) mmol/L ABG Hemoglobin (11.7-17.4) g/dL ABG Carboxyhemoglobin (0.5-1.5) % POC ABG HHb (Measured) (0.0-5.0) % ABG Methemoglobin (0.0-3.0) % Collin Test A-a O2 Difference mm/Hg Respiratory Index Hgb O2 Saturation (95.0-98.0) % Vent Mode Mechanical Rate FiO2 % Tidal Volume PEEP Sodium 149 H (132-148) mmol/L Potassium 3.4 L (3.6-5.2) mmol/L Chloride 120 H (98-107) mmol/L Carbon Dioxide 18 L (22-30) mmol/L Anion Gap 14 (10-20) BUN 20 (9-20) mg/dL Creatinine 0.8 (0.8-1.5) mg/dL Est GFR ( Amer) > 60 Est GFR (Non-Af Amer) > 60 POC Glucose (mg/dL) 91 (65-110) mg/dL Random Glucose 81 (75-110) mg/dL Calcium 6.8 L (8.6-10.4) mg/dl Phosphorus 3.2 (2.5-4.5) mg/dL Magnesium 2.0 (1.6-2.3) mg/dL Total Bilirubin 3.9 H (0.2-1.3) mg/dL AST 35 (17-59) U/L ALT < 6 L D (21-72) U/L Alkaline Phosphatase 48 (38-126) U/L Total Protein 5.9 L (6.3-8.3) g/dL Albumin 1.7 L (3.5-5.0) g/dL Globulin 4.2 H (2.2-3.9) gm/dL Albumin/Globulin Ratio 0.4 L (1.0-2.1) Histoplasma Ab Imm Diff (Negative) Aspergillus flavus Ab (Negative) Aspergill fumigatus Ab (Negative) Aspergillus niger Ab (Negative) 09/08/17 09/07/17 09/07/17 Range/Units 05:27 23:39 17:34 WBC (4.8-10.8) K/uL RBC (4.40-5.90) Mil/uL Hgb (12.0-18.0) g/dL Hct (35.0-51.0) % MCV (80.0-94.0) fL MCH (27.0-31.0) pg MCHC (33.0-37.0) g/dL RDW (11.5-14.5) % Plt Count (130-400) K/uL MPV (7.2-11.7) fL Neut % (Auto) (50.0-75.0) % Lymph % (Auto) (20.0-40.0) % [place] % (Auto) (0.0-10.0) % Eos % (Auto) (0.0-4.0) % Baso % (Auto) (0.0-2.0) % Neut # (Auto) (1.8-7.0) K/uL Lymph # (Auto) (1.0-4.3) K/uL [place] # (Auto) (0.0-0.8) K/uL Eos # (Auto) (0.0-0.7) K/uL Baso # (Auto) (0.0-0.2) K/uL Neutrophils % (Manual) (50-75) % Band Neutrophils % (0-2) % Lymphocytes % (Manual) (20-40) % Monocytes % (Manual) (0-10) % Nucleated RBC % (0-0) % Platelet Estimate (NORMAL) Hypochromasia (manual) Poikilocytosis (manual Anisocytosis (manual) Target Cells Puncture Site R rad pCO2 31 L (35-45) mm/Hg pO2 100 (80-100) mm/Hg HCO3 20.2 L (21-28) mmol/L ABG pH 7.38 (7.35-7.45) ABG Total CO2 19.3 L (22-28) mmol/L ABG O2 Saturation 100.2 H (95-98) % ABG Base Excess -6.1 L (-2.0-3.0) mmol/L ABG Hemoglobin 8.8 L (11.7-17.4) g/dL ABG Carboxyhemoglobin 2.9 H (0.5-1.5) % POC ABG HHb (Measured) -0.2 L (0.0-5.0) % ABG Methemoglobin 0.8 (0.0-3.0) % Collin Test Pos A-a O2 Difference 146.0 mm/Hg Respiratory Index 1.5 Hgb O2 Saturation 96.5 (95.0-98.0) % Vent Mode Prvc Mechanical Rate 18 FiO2 40.0 % Tidal Volume 400 PEEP 5 Sodium (132-148) mmol/L Potassium (3.6-5.2) mmol/L Chloride (98-107) mmol/L Carbon Dioxide (22-30) mmol/L Anion Gap (10-20) BUN (9-20) mg/dL Creatinine (0.8-1.5) mg/dL Est GFR ( Amer) Est GFR (Non-Af Amer) POC Glucose (mg/dL) 101 80 (65-110) mg/dL Random Glucose (75-110) mg/dL Calcium (8.6-10.4) mg/dl Phosphorus (2.5-4.5) mg/dL Magnesium (1.6-2.3) mg/dL Total Bilirubin (0.2-1.3) mg/dL AST (17-59) U/L ALT (21-72) U/L Alkaline Phosphatase (38-126) U/L Total Protein (6.3-8.3) g/dL Albumin (3.5-5.0) g/dL Globulin (2.2-3.9) gm/dL Albumin/Globulin Ratio (1.0-2.1) Histoplasma Ab Imm Diff (Negative) Aspergillus flavus Ab (Negative) Aspergill fumigatus Ab (Negative) Aspergillus niger Ab (Negative) 09/07/17 09/07/17 09/07/17 Range/Units 11:44 11:14 11:13 WBC (4.8-10.8) K/uL RBC (4.40-5.90) Mil/uL Hgb (12.0-18.0) g/dL Hct (35.0-51.0) % MCV (80.0-94.0) fL MCH (27.0-31.0) pg MCHC (33.0-37.0) g/dL RDW (11.5-14.5) % Plt Count (130-400) K/uL MPV (7.2-11.7) fL Neut % (Auto) (50.0-75.0) % Lymph % (Auto) (20.0-40.0) % [place] % (Auto) (0.0-10.0) % Eos % (Auto) (0.0-4.0) % Baso % (Auto) (0.0-2.0) % Neut # (Auto) (1.8-7.0) K/uL Lymph # (Auto) (1.0-4.3) K/uL [place] # (Auto) (0.0-0.8) K/uL Eos # (Auto) (0.0-0.7) K/uL Baso # (Auto) (0.0-0.2) K/uL Neutrophils % (Manual) (50-75) % Band Neutrophils % (0-2) % Lymphocytes % (Manual) (20-40) % Monocytes % (Manual) (0-10) % Nucleated RBC % (0-0) % Platelet Estimate (NORMAL) Hypochromasia (manual) Poikilocytosis (manual Anisocytosis (manual) Target Cells Puncture Site pCO2 (35-45) mm/Hg pO2 (80-100) mm/Hg HCO3 (21-28) mmol/L ABG pH (7.35-7.45) ABG Total CO2 (22-28) mmol/L ABG O2 Saturation (95-98) % ABG Base Excess (-2.0-3.0) mmol/L ABG Hemoglobin (11.7-17.4) g/dL ABG Carboxyhemoglobin (0.5-1.5) % POC ABG HHb (Measured) (0.0-5.0) % ABG Methemoglobin (0.0-3.0) % Collin Test A-a O2 Difference mm/Hg Respiratory Index Hgb O2 Saturation (95.0-98.0) % Vent Mode Mechanical Rate FiO2 % Tidal Volume PEEP Sodium (132-148) mmol/L Potassium (3.6-5.2) mmol/L Chloride (98-107) mmol/L Carbon Dioxide (22-30) mmol/L Anion Gap (10-20) BUN (9-20) mg/dL Creatinine (0.8-1.5) mg/dL Est GFR ( Amer) Est GFR (Non-Af Amer) POC Glucose (mg/dL) 184 H 62 L 63 L (65-110) mg/dL Random Glucose (75-110) mg/dL Calcium (8.6-10.4) mg/dl Phosphorus (2.5-4.5) mg/dL Magnesium (1.6-2.3) mg/dL Total Bilirubin (0.2-1.3) mg/dL AST (17-59) U/L ALT (21-72) U/L Alkaline Phosphatase (38-126) U/L Total Protein (6.3-8.3) g/dL Albumin (3.5-5.0) g/dL Globulin (2.2-3.9) gm/dL Albumin/Globulin Ratio (1.0-2.1) Histoplasma Ab Imm Diff (Negative) Aspergillus flavus Ab (Negative) Aspergill fumigatus Ab (Negative) Aspergillus niger Ab (Negative) 09/01/17 09/01/17 Range/Units 19:16 07:23 WBC (4.8-10.8) K/uL RBC (4.40-5.90) Mil/uL Hgb (12.0-18.0) g/dL Hct (35.0-51.0) % MCV (80.0-94.0) fL MCH (27.0-31.0) pg MCHC (33.0-37.0) g/dL RDW (11.5-14.5) % Plt Count (130-400) K/uL MPV (7.2-11.7) fL Neut % (Auto) (50.0-75.0) % Lymph % (Auto) (20.0-40.0) % [place] % (Auto) (0.0-10.0) % Eos % (Auto) (0.0-4.0) % Baso % (Auto) (0.0-2.0) % Neut # (Auto) (1.8-7.0) K/uL Lymph # (Auto) (1.0-4.3) K/uL [place] # (Auto) (0.0-0.8) K/uL Eos # (Auto) (0.0-0.7) K/uL Baso # (Auto) (0.0-0.2) K/uL Neutrophils % (Manual) (50-75) % Band Neutrophils % (0-2) % Lymphocytes % (Manual) (20-40) % Monocytes % (Manual) (0-10) % Nucleated RBC % (0-0) % Platelet Estimate (NORMAL) Hypochromasia (manual) Poikilocytosis (manual Anisocytosis (manual) Target Cells Puncture Site pCO2 (35-45) mm/Hg pO2 (80-100) mm/Hg HCO3 (21-28) mmol/L ABG pH (7.35-7.45) ABG Total CO2 (22-28) mmol/L ABG O2 Saturation (95-98) % ABG Base Excess (-2.0-3.0) mmol/L ABG Hemoglobin (11.7-17.4) g/dL ABG Carboxyhemoglobin (0.5-1.5) % POC ABG HHb (Measured) (0.0-5.0) % ABG Methemoglobin (0.0-3.0) % Collin Test A-a O2 Difference mm/Hg Respiratory Index Hgb O2 Saturation (95.0-98.0) % Vent Mode Mechanical Rate FiO2 % Tidal Volume PEEP Sodium (132-148) mmol/L Potassium (3.6-5.2) mmol/L Chloride (98-107) mmol/L Carbon Dioxide (22-30) mmol/L Anion Gap (10-20) BUN (9-20) mg/dL Creatinine (0.8-1.5) mg/dL Est GFR ( Amer) Est GFR (Non-Af Amer) POC Glucose (mg/dL) (65-110) mg/dL Random Glucose (75-110) mg/dL Calcium (8.6-10.4) mg/dl Phosphorus (2.5-4.5) mg/dL Magnesium (1.6-2.3) mg/dL Total Bilirubin (0.2-1.3) mg/dL AST (17-59) U/L ALT (21-72) U/L Alkaline Phosphatase (38-126) U/L Total Protein (6.3-8.3) g/dL Albumin (3.5-5.0) g/dL Globulin (2.2-3.9) gm/dL Albumin/Globulin Ratio (1.0-2.1) Histoplasma Ab Imm Diff Negative (Negative) Aspergillus flavus Ab Negative (Negative) Aspergill fumigatus Ab Negative (Negative) Aspergillus niger Ab Negative (Negative) Laboratory Results - last 24 hr 09/01/17 09/01/17 09/07/17 07:23 19:16 11:13 WBC RBC Hgb Hct MCV MCH MCHC RDW Plt Count MPV Neut % (Auto) Lymph % (Auto) [place] % (Auto) Eos % (Auto) Baso % (Auto) Neut # (Auto) Lymph # (Auto) [place] # (Auto) Eos # (Auto) Baso # (Auto) Neutrophils % (Manual) Band Neutrophils % Lymphocytes % (Manual) Monocytes % (Manual) Nucleated RBC % Platelet Estimate Hypochromasia (manual) Poikilocytosis (manual Anisocytosis (manual) Target Cells Puncture Site pCO2 pO2 HCO3 ABG pH ABG Total CO2 ABG O2 Saturation ABG Base Excess ABG Hemoglobin ABG Carboxyhemoglobin POC ABG HHb (Measured) ABG Methemoglobin Collin Test A-a O2 Difference Respiratory Index Hgb O2 Saturation Vent Mode Mechanical Rate FiO2 Tidal Volume PEEP Sodium Potassium Chloride Carbon Dioxide Anion Gap BUN Creatinine Est GFR ( Amer) Est GFR (Non-Af Amer) POC Glucose (mg/dL) 63 L Random Glucose Calcium Phosphorus Magnesium Total Bilirubin AST ALT Alkaline Phosphatase Total Protein Albumin Globulin Albumin/Globulin Ratio Histoplasma Ab Imm Diff Negative Aspergillus flavus Ab Negative Aspergill fumigatus Ab Negative Aspergillus niger Ab Negative 09/07/17 09/07/17 09/07/17 11:14 11:44 17:34 WBC RBC Hgb Hct MCV MCH MCHC RDW Plt Count MPV Neut % (Auto) Lymph % (Auto) [place] % (Auto) Eos % (Auto) Baso % (Auto) Neut # (Auto) Lymph # (Auto) [place] # (Auto) Eos # (Auto) Baso # (Auto) Neutrophils % (Manual) Band Neutrophils % Lymphocytes % (Manual) Monocytes % (Manual) Nucleated RBC % Platelet Estimate Hypochromasia (manual) Poikilocytosis (manual Anisocytosis (manual) Target Cells Puncture Site pCO2 pO2 HCO3 ABG pH ABG Total CO2 ABG O2 Saturation ABG Base Excess ABG Hemoglobin ABG Carboxyhemoglobin POC ABG HHb (Measured) ABG Methemoglobin Collin Test A-a O2 Difference Respiratory Index Hgb O2 Saturation Vent Mode Mechanical Rate FiO2 Tidal Volume PEEP Sodium Potassium Chloride Carbon Dioxide Anion Gap BUN Creatinine Est GFR ( Amer) Est GFR (Non-Af Amer) POC Glucose (mg/dL) 62 L 184 H 80 Random Glucose Calcium Phosphorus Magnesium Total Bilirubin AST ALT Alkaline Phosphatase Total Protein Albumin Globulin Albumin/Globulin Ratio Histoplasma Ab Imm Diff Aspergillus flavus Ab Aspergill fumigatus Ab Aspergillus niger Ab 09/07/17 09/08/17 09/08/17 23:39 05:27 05:29 WBC RBC Hgb Hct MCV MCH MCHC RDW Plt Count MPV Neut % (Auto) Lymph % (Auto) [place] % (Auto) Eos % (Auto) Baso % (Auto) Neut # (Auto) Lymph # (Auto) [place] # (Auto) Eos # (Auto) Baso # (Auto) Neutrophils % (Manual) Band Neutrophils % Lymphocytes % (Manual) Monocytes % (Manual) Nucleated RBC % Platelet Estimate Hypochromasia (manual) Poikilocytosis (manual Anisocytosis (manual) Target Cells Puncture Site R rad pCO2 31 L pO2 100 HCO3 20.2 L ABG pH 7.38 ABG Total CO2 19.3 L ABG O2 Saturation 100.2 H ABG Base Excess -6.1 L ABG Hemoglobin 8.8 L ABG Carboxyhemoglobin 2.9 H POC ABG HHb (Measured) -0.2 L ABG Methemoglobin 0.8 Collin Test Pos A-a O2 Difference 146.0 Respiratory Index 1.5 Hgb O2 Saturation 96.5 Vent Mode Prvc Mechanical Rate 18 FiO2 40.0 Tidal Volume 400 PEEP 5 Sodium Potassium Chloride Carbon Dioxide Anion Gap BUN Creatinine Est GFR ( Amer) Est GFR (Non-Af Amer) POC Glucose (mg/dL) 101 91 Random Glucose Calcium Phosphorus Magnesium Total Bilirubin AST ALT Alkaline Phosphatase Total Protein Albumin Globulin Albumin/Globulin Ratio Histoplasma Ab Imm Diff Aspergillus flavus Ab Aspergill fumigatus Ab Aspergillus niger Ab 09/08/17 09/08/17 06:13 06:14 WBC 8.1 RBC 2.88 L Hgb 8.2 L Hct 24.3 L MCV 84.3 MCH 28.4 MCHC 33.7 RDW 17.0 H Plt Count 208 MPV 8.6 Neut % (Auto) 57.4 Lymph % (Auto) 19.7 L [place] % (Auto) 22.1 H Eos % (Auto) 0.4 Baso % (Auto) 0.4 Neut # (Auto) 4.7 Lymph # (Auto) 1.6 [place] # (Auto) 1.8 H Eos # (Auto) 0.0 Baso # (Auto) 0.0 Neutrophils % (Manual) 58 Band Neutrophils % 9 H Lymphocytes % (Manual) 12 L Monocytes % (Manual) 21 H Nucleated RBC % 1 H Platelet Estimate Normal Hypochromasia (manual) Slight Poikilocytosis (manual Slight Anisocytosis (manual) Slight Target Cells Slight Puncture Site pCO2 pO2 HCO3 ABG pH ABG Total CO2 ABG O2 Saturation ABG Base Excess ABG Hemoglobin ABG Carboxyhemoglobin POC ABG HHb (Measured) ABG Methemoglobin Collin Test A-a O2 Difference Respiratory Index Hgb O2 Saturation Vent Mode Mechanical Rate FiO2 Tidal Volume PEEP Sodium 149 H Potassium 3.4 L Chloride 120 H Carbon Dioxide 18 L Anion Gap 14 BUN 20 Creatinine 0.8 Est GFR ( Amer) > 60 Est GFR (Non-Af Amer) > 60 POC Glucose (mg/dL) Random Glucose 81 Calcium 6.8 L Phosphorus 3.2 Magnesium 2.0 Total Bilirubin 3.9 H AST 35 ALT < 6 L D Alkaline Phosphatase 48 Total Protein 5.9 L Albumin 1.7 L Globulin 4.2 H Albumin/Globulin Ratio 0.4 L Histoplasma Ab Imm Diff Aspergillus flavus Ab Aspergill fumigatus Ab Aspergillus niger Ab Fingerstick Blood Sugar Results: 94 Critical Care Progress Note - Nutrition Nutrition: Nutrition Category Date Time Status NPO Diet [DIET] Diets 09/07/17 Dinner Active Assessment/Plan - Assessment and Plan (Free Text) Assessment: 77 year old male with PMHx of Arthritis, Asthma, COPD, Severe Dementia, HTN, Seizures, TIA with PEG, and Right AKA presents from alf due to fever. Admitted to ICU, intubated due to respiratory failure. Code Sepsis 2/2 Mycoplasma Pneumonia 08/27/17. S/P bronchoscopy 09/03/17. S/P Tracheostomy 09/07/17. Pending LTAC placement Plan: Neuro: GCS: 10T Sedation: None A: Severe Dementia, Hx of Seizure Home Carbamazepine 100mg Q8 | Home Valproic Acid 250mg PEG QID Changed to Q12H Amantadine 100mg PO Daily per Neuro Cardio: A: HTN, Hx of TIA, HLD Crestor 5mg PO HS Pulm: A: Hypoxic Res. Failure, Asthma, COPD, Mycoplasma Pneumonia + 08/27/17 CXR (Admission): Stable postsurgical changes in the right lung with low lung volume and shift of mediastinal to the right. No acute findings. CXR (09/03): No significant interval change in right upper lobe cystic changes/ bulla and right pleural effusion. Stable position of endotracheal tube. S/P bronchoscopy 09/03/17 - pending results from bronchial washings S/P Tracheostomy 09/07/[address] Celestine Monae Scheduled Endo A: Hypoglycemia (Stable) GI: A: Enterocolitis CT chest Abd/Pelvis (08/27): Enterocolits; ascities;mild bladder wall thickening with air in the bladder, iatrogenic versus infectious. -Flagyl started 08/31/17 A: Elevated T. Bili - Continue to monitor, unremarkable on CT Scan Renal: A: Hypocalcemia, corrected calcium - within normal limits, Hypokalemia Replace electrolytes PRN Heme/Onc: A: Normocytic Anemia HgB stable at new baseline of low 8s Transfused 1 unit throughout admission Transfused 2nd unit 09/07/17 Stool Occult Blood - NEGATIVE ID A: Code Sepsis, Leukocytosis (Resolved) Cultures (08/24, 08/31) Blood - NEGATIVE to date | Urine - NEGATIVE to date | Sputum - Normal Oral Melissa | MRSA - NEGATIVE Wound Cultures - Coagulase Neg Staph, Likely normal Skin Melissa ID on Consult, Recs Appreciated - Dr. Muñoz Mycoplasma Pneumonia IgM - POSITIVE, Patient has chronic Mycoplasma IgM. This was positive on 08/03/17 Antibiotics: Moxifloxacin 400mg Q24H and Micafungin 100mg Q24H started on 09/01, Flagyl 500mg Q8H started 08/31 AFB Sputum Culture x 2 negative, Aspergillus AB and Antigen, H. Galactomannan Antigen, Histoplasma AB,- ALL NEGATIVE, Quant Gold - PENDING - spiked 101F 09/05/17 at 12:30pm - was not suh cultured - repeated all cultures - follow up Integumentary A: Left Lower ext wounds Wound Care Prophylaxis Protonix Lovenox (Held) due to tracheostomy 09/07/17 Diet: Tube Feeding - Jevity 1.5 Lines: Right IJ Central Line removed, placed Left PICC line 09/06/17, consent retrieved from Elizabet legal guardian [phone] Disposition: Pending placement in LTAC. DW with ICU Attending - Tita Graves, PGY-1 <Giovanni Washington - Last Filed: 09/08/17 18:03> CCU Objective - Vital Signs / Intake & Output Vital Signs (Last 4 hours): Vital Signs Temp Pulse Resp BP Pulse Ox 09/08/17 17:00 99 H 35 H 96 09/08/17 16:56 99 H 35 H 89/51 L 97 09/08/17 16:00 100 H 34 H 97 09/08/17 15:56 101 H 33 H 97/57 L 97 09/08/17 15:00 107 H 40 H 96 09/08/17 14:56 107 H 40 H 102/60 97 09/08/17 14:45 99.7 F H 09/08/17 14:00 99 H 33 H 97 09/08/17 13:56 99 H 31 H 96/57 L 98 Intake and Output (Last 8hrs): Intake & Output 09/08/17 09/08/17 09/08/17 06:59 14:59 22:59 Intake Total 1010 980 50 Output Total 1075 220 25 Balance -65 760 25 Weight 133 lb 1.6 oz Intake: Intake, IV Amount 450 400 50 Left Medial Port PICC 450 400 50 Tube Feeding 360 280 Other 200 300 Output: Urine 675 220 25 Urethral (Brown) 675 220 25 Stool 400 - Medications Active Medications: Active Medications Generic Name Dose Route Start Last Admin Trade Name Freq PRN Reason Stop Dose Admin Acetaminophen 650 mg 09/08/17 14:59 Tylenol 325mg Tab PO Q6 PRN Fever >100.4 F Albumin Human 12.5 gm 09/08/17 10:00 09/08/17 14:18 Albumin Human 25% (12.5 Gm/50 Ml) IV 09/08/17 22:01 12.5 gm Q8 AMY Administration Albuterol/Ipratropium 3 ml 08/28/17 08:00 09/08/17 13:32 Duoneb 3 Mg/0.5 Mg (3 Ml) Ud INH 3 ml RQ6 AMY Administration Amantadine HCl 100 mg 09/05/17 10:00 09/08/17 09:41 Symmetrel PO 100 mg DAILY AMY Administration Bisacodyl 10 mg 08/29/17 08:30 Dulcolax [place] ONCE PRN consipation Carbamazepine 100 mg 08/24/17 22:00 09/08/17 14:18 Tegretol PEG 100 mg Q8 AMY Administration Enoxaparin Sodium 40 mg 08/24/17 18:00 09/08/17 09:28 Lovenox SC 40 mg DAILY AMY Administration Metronidazole 500 mg in 100 mls @ 100 mls/hr 08/31/17 14:00 09/08/17 13:05 Flagyl IVPB 100 mls/hr Q8 AMY Administration Protocol Vancomycin/Sodium Chloride 1 gm in 200 mls @ 133 mls/hr 09/06/17 18:00 17:21 Vancomycin 1 Gm/Ns 200 Ml IVPB 09/11/17 18:01 133 mls/hr Q24H AMY Administration Protocol Doxycycline Hyclate 100 mg/ 100 mls @ 100 mls/hr 09/08/17 15:00 09/08/17 15: 15 Sodium Chloride IVPB 100 mls/hr Q12H AMY Administration Protocol Lorazepam 1 mg 09/03/17 01:11 09/06/17 17:02 Ativan IVP 1 mg Q4H PRN Administration Anxiety Pantoprazole Sodium 40 mg 08/29/17 10:00 09/08/17 09:21 Protonix Susp PO 40 mg DAILY AMY Administration Rosuvastatin Calcium 5 mg 08/24/17 22:00 09/07/17 21:16 Crestor PO 5 mg HS AMY Administration Valproate Sodium 250 mg 09/02/17 22:00 09/08/17 09:19 Depakene Oral Soln PEG 250 mg Q12 AMY Administration - Patient Studies Lab Studies: Microbiology Studies 09/08/17 17:31 Gram Stain - Preliminary Trachasp 09/06/17 14:00 Blood Culture - Preliminary Blood-Thru Central Line NO GROWTH AFTER 48 HOURS 09/06/17 14:00 Blood Culture - Preliminary Blood-Thru Central Line NO GROWTH AFTER 48 HOURS 09/06/17 12:09 Gram Stain - Final Sputum Sputum Culture - Final NORMAL ORAL MELISSA Lab Studies 09/08/17 09/08/17 09/08/17 Range/Units 17:25 14:47 11:11 WBC (4.8-10.8) K/uL RBC (4.40-5.90) Mil/uL Hgb (12.0-18.0) g/dL Hct (35.0-51.0) % MCV (80.0-94.0) fL MCH (27.0-31.0) pg MCHC (33.0-37.0) g/dL RDW (11.5-14.5) % Plt Count (130-400) K/uL MPV (7.2-11.7) fL Neut % (Auto) (50.0-75.0) % Lymph % (Auto) (20.0-40.0) % [place] % (Auto) (0.0-10.0) % Eos % (Auto) (0.0-4.0) % Baso % (Auto) (0.0-2.0) % Neut # (Auto) (1.8-7.0) K/uL Lymph # (Auto) (1.0-4.3) K/uL [place] # (Auto) (0.0-0.8) K/uL Eos # (Auto) (0.0-0.7) K/uL Baso # (Auto) (0.0-0.2) K/uL Neutrophils % (Manual) (50-75) % Band Neutrophils % (0-2) % Lymphocytes % (Manual) (20-40) % Monocytes % (Manual) (0-10) % Nucleated RBC % (0-0) % Platelet Estimate (NORMAL) Hypochromasia (manual) Poikilocytosis (manual Anisocytosis (manual) Target Cells Puncture Site pCO2 (35-45) mm/Hg pO2 (80-100) mm/Hg HCO3 (21-28) mmol/L ABG pH (7.35-7.45) ABG Total CO2 (22-28) mmol/L ABG O2 Saturation (95-98) % ABG Base Excess (-2.0-3.0) mmol/L ABG Hemoglobin (11.7-17.4) g/dL ABG Carboxyhemoglobin (0.5-1.5) % POC ABG HHb (Measured) (0.0-5.0) % ABG Methemoglobin (0.0-3.0) % [place]lin Test A-a O2 Difference mm/Hg Respiratory Index Hgb O2 Saturation (95.0-98.0) % Vent Mode Mechanical Rate FiO2 % Tidal Volume PEEP Sodium (132-148) mmol/L Potassium (3.6-5.2) mmol/L Chloride (98-107) mmol/L Carbon Dioxide (22-30) mmol/L Anion Gap (10-20) BUN (9-20) mg/dL Creatinine (0.8-1.5) mg/dL Est GFR ( Amer) Est GFR (Non-Af Amer) POC Glucose (mg/dL) 92 99 (65-110) mg/dL Random Glucose (75-110) mg/dL Calcium (8.6-10.4) mg/dl Phosphorus (2.5-4.5) mg/dL Magnesium (1.6-2.3) mg/dL Total Bilirubin (0.2-1.3) mg/dL AST (17-59) U/L ALT (21-72) U/L Alkaline Phosphatase (38-126) U/L Total Protein (6.3-8.3) g/dL Albumin (3.5-5.0) g/dL Globulin (2.2-3.9) gm/dL Albumin/Globulin Ratio (1.0-2.1) C. difficile Ag & Toxin Negative (NEGATIVE) 09/08/17 09/08/17 09/08/17 Range/Units 06:14 06:13 05:29 WBC 8.1 (4.8-10.8) K/uL RBC 2.88 L (4.40-5.90) Mil/uL Hgb 8.2 L (12.0-18.0) g/dL Hct 24.3 L (35.0-51.0) % MCV 84.3 (80.0-94.0) fL MCH 28.4 (27.0-31.0) pg MCHC 33.7 (33.0-37.0) g/dL RDW 17.0 H (11.5-14.5) % Plt Count 208 (130-400) K/uL MPV 8.6 (7.2-11.7) fL Neut % (Auto) 57.4 (50.0-75.0) % Lymph % (Auto) 19.7 L (20.0-40.0) % [place] % (Auto) 22.1 H (0.0-10.0) % Eos % (Auto) 0.4 (0.0-4.0) % Baso % (Auto) 0.4 (0.0-2.0) % Neut # (Auto) 4.7 (1.8-7.0) K/uL Lymph # (Auto) 1.6 (1.0-4.3) K/uL [place] # (Auto) 1.8 H (0.0-0.8) K/uL Eos # (Auto) 0.0 (0.0-0.7) K/uL Baso # (Auto) 0.0 (0.0-0.2) K/uL Neutrophils % (Manual) 58 (50-75) % Band Neutrophils % 9 H (0-2) % Lymphocytes % (Manual) 12 L (20-40) % Monocytes % (Manual) 21 H (0-10) % Nucleated RBC % 1 H (0-0) % Platelet Estimate Normal (NORMAL) Hypochromasia (manual) Slight Poikilocytosis (manual Slight Anisocytosis (manual) Slight Target Cells Slight Puncture Site pCO2 (35-45) mm/Hg pO2 (80-100) mm/Hg HCO3 (21-28) mmol/L ABG pH (7.35-7.45) ABG Total CO2 (22-28) mmol/L ABG O2 Saturation (95-98) % ABG Base Excess (-2.0-3.0) mmol/L ABG Hemoglobin (11.7-17.4) g/dL ABG Carboxyhemoglobin (0.5-1.5) % POC ABG HHb (Measured) (0.0-5.0) % ABG Methemoglobin (0.0-3.0) % Collin Test A-a O2 Difference mm/Hg Respiratory Index Hgb O2 Saturation (95.0-98.0) % Vent Mode Mechanical Rate FiO2 % Tidal Volume PEEP Sodium 149 H (132-148) mmol/L Potassium 3.4 L (3.6-5.2) mmol/L Chloride 120 H (98-107) mmol/L Carbon Dioxide 18 L (22-30) mmol/L Anion Gap 14 (10-20) BUN 20 (9-20) mg/dL Creatinine 0.8 (0.8-1.5) mg/dL Est GFR ( Amer) > 60 Est GFR (Non-Af Amer) > 60 POC Glucose (mg/dL) 91 (65-110) mg/dL Random Glucose 81 (75-110) mg/dL Calcium 6.8 L (8.6-10.4) mg/dl Phosphorus 3.2 (2.5-4.5) mg/dL Magnesium 2.0 (1.6-2.3) mg/dL Total Bilirubin 3.9 H (0.2-1.3) mg/dL AST 35 (17-59) U/L ALT < 6 L D (21-72) U/L Alkaline Phosphatase 48 (38-126) U/L Total Protein 5.9 L (6.3-8.3) g/dL Albumin 1.7 L (3.5-5.0) g/dL Globulin 4.2 H (2.2-3.9) gm/dL Albumin/Globulin Ratio 0.4 L (1.0-2.1) C. difficile Ag & Toxin (NEGATIVE) 09/08/17 09/07/17 Range/Units 05:27 23:39 WBC (4.8-10.8) K/uL RBC (4.40-5.90) Mil/uL Hgb (12.0-18.0) g/dL Hct (35.0-51.0) % MCV (80.0-94.0) fL MCH (27.0-31.0) pg MCHC (33.0-37.0) g/dL RDW (11.5-14.5) % Plt Count (130-400) K/uL MPV (7.2-11.7) fL Neut % (Auto) (50.0-75.0) % Lymph % (Auto) (20.0-40.0) % [place] % (Auto) (0.0-10.0) % Eos % (Auto) (0.0-4.0) % Baso % (Auto) (0.0-2.0) % Neut # (Auto) (1.8-7.0) K/uL Lymph # (Auto) (1.0-4.3) K/uL [place] # (Auto) (0.0-0.8) K/uL Eos # (Auto) (0.0-0.7) K/uL Baso # (Auto) (0.0-0.2) K/uL Neutrophils % (Manual) (50-75) % Band Neutrophils % (0-2) % Lymphocytes % (Manual) (20-40) % Monocytes % (Manual) (0-10) % Nucleated RBC % (0-0) % Platelet Estimate (NORMAL) Hypochromasia (manual) Poikilocytosis (manual Anisocytosis (manual) Target Cells Puncture Site R rad pCO2 31 L (35-45) mm/Hg pO2 100 (80-100) mm/Hg HCO3 20.2 L (21-28) mmol/L ABG pH 7.38 (7.35-7.45) ABG Total CO2 19.3 L (22-28) mmol/L ABG O2 Saturation 100.2 H (95-98) % ABG Base Excess -6.1 L (-2.0-3.0) mmol/L ABG Hemoglobin 8.8 L (11.7-17.4) g/dL ABG Carboxyhemoglobin 2.9 H (0.5-1.5) % POC ABG HHb (Measured) -0.2 L (0.0-5.0) % ABG Methemoglobin 0.8 (0.0-3.0) % Collin Test Pos A-a O2 Difference 146.0 mm/Hg Respiratory Index 1.5 Hgb O2 Saturation 96.5 (95.0-98.0) % Vent Mode Prvc Mechanical Rate 18 FiO2 40.0 % Tidal Volume 400 PEEP 5 Sodium (132-148) mmol/L Potassium (3.6-5.2) mmol/L Chloride (98-107) mmol/L Carbon Dioxide (22-30) mmol/L Anion Gap (10-20) BUN (9-20) mg/dL Creatinine (0.8-1.5) mg/dL Est GFR ( Amer) Est GFR (Non-Af Amer) POC Glucose (mg/dL) 101 (65-110) mg/dL Random Glucose (75-110) mg/dL Calcium (8.6-10.4) mg/dl Phosphorus (2.5-4.5) mg/dL Magnesium (1.6-2.3) mg/dL Total Bilirubin (0.2-1.3) mg/dL AST (17-59) U/L ALT (21-72) U/L Alkaline Phosphatase (38-126) U/L Total Protein (6.3-8.3) g/dL Albumin (3.5-5.0) g/dL Globulin (2.2-3.9) gm/dL Albumin/Globulin Ratio (1.0-2.1) C. difficile Ag & Toxin (NEGATIVE) Laboratory Results - last 24 hr 09/07/17 09/08/17 09/08/17 23:39 05:27 05:29 WBC RBC Hgb Hct MCV MCH MCHC RDW Plt Count MPV Neut % (Auto) Lymph % (Auto) [place] % (Auto) Eos % (Auto) Baso % (Auto) Neut # (Auto) Lymph # (Auto) [place] # (Auto) Eos # (Auto) Baso # (Auto) Neutrophils % (Manual) Band Neutrophils % Lymphocytes % (Manual) Monocytes % (Manual) Nucleated RBC % Platelet Estimate Hypochromasia (manual) Poikilocytosis (manual Anisocytosis (manual) Target Cells Puncture Site R rad pCO2 31 L pO2 100 HCO3 20.2 L ABG pH 7.38 ABG Total CO2 19.3 L ABG O2 Saturation 100.2 H ABG Base Excess -6.1 L ABG Hemoglobin 8.8 L ABG Carboxyhemoglobin 2.9 H POC ABG HHb (Measured) -0.2 L ABG Methemoglobin 0.8 [place]lin Test Pos A-a O2 Difference 146.0 Respiratory Index 1.5 Hgb O2 Saturation 96.5 Vent Mode Prvc Mechanical Rate 18 FiO2 40.0 Tidal Volume 400 PEEP 5 Sodium Potassium Chloride Carbon Dioxide Anion Gap BUN Creatinine Est GFR ( Amer) Est GFR (Non-Af Amer) POC Glucose (mg/dL) 101 91 Random Glucose Calcium Phosphorus Magnesium Total Bilirubin AST ALT Alkaline Phosphatase Total Protein Albumin Globulin Albumin/Globulin Ratio C. difficile Ag & Toxin 09/08/17 09/08/17 09/08/17 06:13 06:14 11:11 WBC 8.1 RBC 2.88 L Hgb 8.2 L Hct 24.3 L MCV 84.3 MCH 28.4 MCHC 33.7 RDW 17.0 H Plt Count 208 MPV 8.6 Neut % (Auto) 57.4 Lymph % (Auto) 19.7 L [place] % (Auto) 22.1 H Eos % (Auto) 0.4 Baso % (Auto) 0.4 Neut # (Auto) 4.7 Lymph # (Auto) 1.6 [place] # (Auto) 1.8 H Eos # (Auto) 0.0 Baso # (Auto) 0.0 Neutrophils % (Manual) 58 Band Neutrophils % 9 H Lymphocytes % (Manual) 12 L Monocytes % (Manual) 21 H Nucleated RBC % 1 H Platelet Estimate Normal Hypochromasia (manual) Slight Poikilocytosis (manual Slight Anisocytosis (manual) Slight Target Cells Slight Puncture Site pCO2 pO2 HCO3 ABG pH ABG Total CO2 ABG O2 Saturation ABG Base Excess ABG Hemoglobin ABG Carboxyhemoglobin POC ABG HHb (Measured) ABG Methemoglobin Collin Test A-a O2 Difference Respiratory Index Hgb O2 Saturation Vent Mode Mechanical Rate FiO2 Tidal Volume PEEP Sodium 149 H Potassium 3.4 L Chloride 120 H Carbon Dioxide 18 L Anion Gap 14 BUN 20 Creatinine 0.8 Est GFR ( Amer) > 60 Est GFR (Non-Af Amer) > 60 POC Glucose (mg/dL) 99 Random Glucose 81 Calcium 6.8 L Phosphorus 3.2 Magnesium 2.0 Total Bilirubin 3.9 H AST 35 ALT < 6 L D Alkaline Phosphatase 48 Total Protein 5.9 L Albumin 1.7 L Globulin 4.2 H Albumin/Globulin Ratio 0.4 L C. difficile Ag & Toxin 09/08/17 09/08/17 14:47 17:25 WBC RBC Hgb Hct MCV MCH MCHC RDW Plt Count MPV Neut % (Auto) Lymph % (Auto) [place] % (Auto) Eos % (Auto) Baso % (Auto) Neut # (Auto) Lymph # (Auto) [place] # (Auto) Eos # (Auto) Baso # (Auto) Neutrophils % (Manual) Band Neutrophils % Lymphocytes % (Manual) Monocytes % (Manual) Nucleated RBC % Platelet Estimate Hypochromasia (manual) Poikilocytosis (manual Anisocytosis (manual) Target Cells Puncture Site pCO2 pO2 HCO3 ABG pH ABG Total CO2 ABG O2 Saturation ABG Base Excess ABG Hemoglobin ABG Carboxyhemoglobin POC ABG HHb (Measured) ABG Methemoglobin Collin Test A-a O2 Difference Respiratory Index Hgb O2 Saturation Vent Mode Mechanical Rate FiO2 Tidal Volume PEEP Sodium Potassium Chloride Carbon Dioxide Anion Gap BUN Creatinine Est GFR ( Amer) Est GFR (Non-Af Amer) POC Glucose (mg/dL) 92 Random Glucose Calcium Phosphorus Magnesium Total Bilirubin AST ALT Alkaline Phosphatase Total Protein Albumin Globulin Albumin/Globulin Ratio C. difficile Ag & Toxin Negative Critical Care Progress Note - Nutrition Nutrition: Nutrition Category Date Time Status NPO Diet [DIET] Diets 09/07/17 Dinner Active Assessment/Plan (1) Respiratory failure Current Visit: Yes Status: Acute (2) Anemia Current Visit: Yes Status: Acute (3) Pneumonia Current Visit: No Status: Acute Attending/Attestation - Attestation I have personally seen and examined this patient.: Yes I have fully participated in the care of the patient.: Yes I have reviewed all pertinent clinical information: Yes Notes (Text): 09/08/17 18:01 patient seen and examined in the intensive Care unit. Status post tracheostomy Not tolerating weaning Continue antibiotics Continue PEG feeding IV albumin Transfer to LTAC"
--- NOTE | 2017-09-08 14:05 | CP.PCM.PN ---
Subjective - Date & Time of Evaluation Date of Evaluation: 09/08/17 Time of Evaluation: 02:00 - Subjective Subjective: dictated Objective - Vital Signs/Intake and Output Vital Signs (last 24 hours): Temp Pulse Resp BP Pulse Ox 100.6 F H 95 H 29 H 88/52 L 96 09/08/17 12:10 09/08/17 13:00 09/08/17 13:00 09/08/17 12:56 09/08/17 13:00 Intake and Output: 09/08/17 09/08/17 06:59 18:59 Intake Total 1420 640 Output Total 1250 190 Balance 170 450 - Medications Medications: Current Medications Acetaminophen (Tylenol 650 Mg Supp) 650 mg IN Q4 PRN PRN Reason: Fever >100.4 F Last Admin: 09/05/17 12:32 Dose: 650 mg Albumin Human (Albumin Human 25% (12.5 Gm/50 Ml)) 12.5 gm IV Q8 [facility] Stop: 09/08/17 22:01 Last Admin: 09/08/17 09:52 Dose: 12.5 gm Albuterol/Ipratropium (Duoneb 3 Mg/0.5 Mg (3 Ml) Ud) 3 ml INH RQ6 [facility] Last Admin: 09/08/17 13:32 Dose: 3 ml Amantadine HCl (Symmetrel) 100 mg PO DAILY [facility] Last Admin: 09/08/17 09:41 Dose: 100 mg Bisacodyl (Dulcolax) 10 mg IN ONCE PRN PRN Reason: consipation Carbamazepine (Tegretol) 100 mg PEG Q8 [facility] Last Admin: 09/08/17 05:06 Dose: 100 mg Enoxaparin Sodium (Lovenox) 40 mg SC DAILY [facility] Last Admin: 09/08/17 09:28 Dose: 40 mg Metronidazole (Flagyl) 500 mg in 100 mls @ 100 mls/hr IVPB Q8 [facility] PRN Reason: Protocol Last Admin: 09/08/17 13:05 Dose: 100 mls/hr Vancomycin/Sodium Chloride (Vancomycin 1 Gm/Ns 200 Ml) 1 gm in 200 mls @ 133 mls/hr IVPB Q24H [facility] PRN Reason: Protocol Stop: 09/11/17 18:01 Last Admin: 09/07/17 17:08 Dose: 133 mls/hr Doxycycline Hyclate 100 mg/ (Sodium Chloride) 100 mls @ 100 mls/hr IVPB Q12H [facility] PRN Reason: Protocol Lorazepam (Ativan) 1 mg IVP Q4H PRN PRN Reason: Anxiety Last Admin: 09/06/17 17:02 Dose: 1 mg Pantoprazole Sodium (Protonix Susp) 40 mg PO DAILY [facility] Last Admin: 09/08/17 09:21 Dose: 40 mg Rosuvastatin Calcium (Crestor) 5 mg PO HS [facility] Last Admin: 09/07/17 21:16 Dose: 5 mg Valproate Sodium (Depakene Oral Soln) 250 mg PEG Q12 [facility] Last Admin: 09/08/17 09:19 Dose: 250 mg - Labs Labs: 09/08/17 06:14 09/08/17 06:13 PT 22.0 SECONDS (9.7-12.2) H 09/07/17 06:08 INR 2.0 09/07/17 06:08 APTT 43 SECONDS (21-34) H 09/07/17 06:08
[2017-09-08] MEDS: Vancomycin 1 gm/NS 200 ml 1 GM/200 ML BAG IVPB SCH (17:21)
--- NOTE | 2017-09-08 23:04 | PN ---
DATE: 09/08/2017 SUBJECTIVE: The patient had again fever, low grade, today with 99.7. OBJECTIVE: VITAL SIGNS: Temperature 99.7, pulse of 107, blood pressure is 102/60, respiratory rate remains high. HEENT: He has a trach vent. Head is atraumatic. He is lethargic. NECK: Supple. LUNGS: Coarse breath sounds. HEART: S1, S2 is tachy. ABDOMEN: Soft and nontender. PEG tube site shows mild redness and mild erythema. 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 There is diabetic ulcer on the lateral malleolus persists. He has PICC line on the left arm. He was screened for triple lumen and was removed. He also has rectal tube at this time. We ordered sputum, blood cultures, and stool clostridium difficile. At this time, I would change the Avelox p.o. to doxycycline IV to cover for the atypicals again and leave the vancomycin on. There was no evidence of fungal infection, so we will take away the Mycamine and leave the Flagyl on for the colitis that was mentioned on the CT scan and will follow and hopefully he will stop having fevers. Labs as noted; white count is 8.1, hemoglobin 8.2, hematocrit 34.3, platelet count is 208. Sodium is 149, potassium 3.4, chloride of 120, and CO2 is 18. Total bili is 3.9 still elevated, hopefully come down. ASSESSMENT AND PLAN: We will follow. The patient is right now on vancomycin and doxycycline and metronidazole. He is status post trach with fevers at this time and still with respiratory failure. Bladimir Muñoz MD
[2017-09-09] MEDS: Albuterol-Ipratrop 3 mg / 0.5 (3 ml) UD INH SCH ×4 (01:29→19:25)
[2017-09-09 05:28] LABS: ABG ALLEN TEST POS; ARTERIAL BLOOD GAS HCO3 19.4 mmol/L (21-28); ARTERIAL BLOOD GAS HEMOGLOBIN 9.3 g/dL (11.7-17.4); ARTERIAL BLOOD GAS O2 SAT 99.6 % (95-98); ARTERIAL BLOOD GAS PCO2 25 mm/Hg (35-45); ARTERIAL BLOOD GAS PH 7.42 (7.35-7.45); ARTERIAL BLOOD GAS PO2 101 mm/Hg (80-100)
[2017-09-09] MEDS: carBAMazepine Chew Tab 100 MG Chew Tab PEG SCH ×3 (05:29→21:41)
[2017-09-09] MEDS: metroNIDAZOLE IV 500 mg/100 ml 500 MG/100 ML BAG IVPB SCH ×3 (05:29→21:41)
--- NOTE | 2017-09-09 06:22 | CP.PCM.PN ---
Subjective - Date & Time of Evaluation Date of Evaluation: 09/09/17 Time of Evaluation: 06:22 - Subjective Subjective: Mr. Cordero was seen and examined at the bedside in ICU. He remains on mechanical ventilator on PRVC mode via trach. Pupils sluggishly reactive 3 mm on the left and 2 mm on the right, responsive to pain stimuli, and opens eyes spontaneously.His bilateral upper extremities are edematous. There was no untoward events overnight. Objective - Vital Signs/Intake and Output Vital Signs (last 24 hours): Temp Pulse Resp BP Pulse Ox 100.9 F H 109 H 34 H 106/47 L 97 09/09/17 05:31 09/09/17 04:00 09/09/17 04:00 09/09/17 03:56 09/09/17 04:00 Intake and Output: 09/08/17 09/09/17 18:59 06:59 Intake Total 1450 970 Output Total 325 700 Balance 1125 270 - Medications Medications: Current Medications Acetaminophen (Tylenol 325mg Tab) 650 mg PO Q6 PRN PRN Reason: Fever >100.4 F Last Admin: 09/09/17 05:31 Dose: 650 mg Albuterol/Ipratropium (Duoneb 3 Mg/0.5 Mg (3 Ml) Ud) 3 ml INH RQ6 [facility] Last Admin: 09/09/17 01:29 Dose: 3 ml Amantadine HCl (Symmetrel) 100 mg PO DAILY [facility] Last Admin: 09/08/17 09:41 Dose: 100 mg Bisacodyl (Dulcolax) 10 mg [place] ONCE PRN PRN Reason: consipation Carbamazepine (Tegretol) 100 mg PEG Q8 [facility] Last Admin: 09/09/17 05:29 Dose: 100 mg Enoxaparin Sodium (Lovenox) 40 mg SC DAILY [facility] Last Admin: 09/08/17 09:28 Dose: 40 mg Metronidazole (Flagyl) 500 mg in 100 mls @ 100 mls/hr IVPB Q8 [facility] PRN Reason: Protocol Last Admin: 09/09/17 05:29 Dose: 100 mls/hr Vancomycin/Sodium Chloride (Vancomycin 1 Gm/Ns 200 Ml) 1 gm in 200 mls @ 133 mls/hr IVPB Q24H [facility] PRN Reason: Protocol Stop: 09/11/17 18:01 Last Admin: 09/08/17 17:21 Dose: 133 mls/hr Doxycycline Hyclate 100 mg/ (Sodium Chloride) 100 mls @ 100 mls/hr IVPB Q12H [facility] PRN Reason: Protocol Last Admin: 09/09/17 03:12 Dose: 100 mls/hr Lorazepam (Ativan) 1 mg IVP Q4H PRN PRN Reason: Anxiety Last Admin: 09/06/17 17:02 Dose: 1 mg Pantoprazole Sodium (Protonix Susp) 40 mg PO DAILY [facility] Last Admin: 09/08/17 09:21 Dose: 40 mg Rosuvastatin Calcium (Crestor) 5 mg PO HS [facility] Last Admin: 09/08/17 21:05 Dose: 5 mg Valproate Sodium (Depakene Oral Soln) 250 mg PEG Q12 [facility] Last Admin: 09/08/17 21:05 Dose: 250 mg - Labs Labs: 09/08/17 06:14 09/08/17 06:13 PT 22.0 SECONDS (9.7-12.2) H 09/07/17 06:08 INR 2.0 09/07/17 06:08 APTT 43 SECONDS (21-34) H 09/07/17 06:08 - Constitutional Appears: No Acute Distress - Head Exam Head Exam: NORMAL INSPECTION - Eye Exam Pupil Exam: Unequal Additional comments: right - 2mm, left - 3mm sluggish - Neurological Exam Neurological Exam: Awake Neuro motor strength exam: Left Upper Extremity: 2/1, Right Upper Extremity: 2/1 , Left Lower Extremity: 2/1, Right Lower Extremity: 0 (AKA) Additional comments: neurological unchanged from previous examination. Assessment and Plan (1) Toxic metabolic encephalopathy Assessment & Plan: Case discussed with Dr. Whitley, continue all current medical regimen. Recommend head of elevated at least 30 degrees, hydration, tegretol and depakote level in am. Status: Acute
[2017-09-09 06:23] LABS: BASO # 0.1 K/uL (0.0-0.2); BASO % 0.7 % (0.0-2.0); EOS % 0.3 % (0.0-4.0); HEMOGLOBIN 7.8 g/dL (12.0-18.0); LYMPH # 1.6 K/uL (1.0-4.3); LYMPH % 18.3 % (20.0-40.0); MEAN CELL VOLUME 85.1 fL (80.0-94.0); MEAN CORPUSCULAR HEMOGLOBIN 28.4 pg (27.0-31.0); MEAN CORPUSCULAR HGB CONC 33.4 g/dL (33.0-37.0); MONO # 1.7 K/uL (0.0-0.8); MONO % 19.6 % (0.0-10.0); NEUT # 5.2 K/uL (1.8-7.0); NEUT % 61.1 % (50.0-75.0); RBC 2.75 Mil/uL (4.40-5.90); RED CELL DISTRIBUTION WIDTH 17.3 % (11.5-14.5); WHITE BLOOD COUNT 8.5 K/uL (4.8-10.8)
[2017-09-09 06:38] LABS: ALB/GLOB RATIO 0.4 (1.0-2.1); ALBUMIN 1.9 g/dL (3.5-5.0); AST/SGOT 36 U/L (17-59); BLOOD UREA NITROGEN 18 mg/dL (9-20); GFR AFRICAN-AMERICAN > 60; GFR NON-AFRICAN AMERICAN > 60
[2017-09-09 06:42] LABS: ALT/SGPT < 6 U/L (21-72)
--- NOTE | 2017-09-09 08:18 | CP.PCM.PN ---
Subjective - Date & Time of Evaluation Date of Evaluation: 09/08/17 Time of Evaluation: 20:00 - Subjective Subjective: Pt seen and examined at bedside, pt is on ventilator, s/p tracheostomy, he is tolerating, 40% FiO2 . B.P is borderline low, peg side is clean Objective - Vital Signs/Intake and Output Vital Signs (last 24 hours): Temp Pulse Resp BP Pulse Ox 100.9 F H 103 H 40 H 82/44 L 96 09/09/17 05:31 09/09/17 07:00 09/09/17 07:00 09/09/17 06:56 09/09/17 07:00 Intake and Output: 09/09/17 09/09/17 06:59 18:59 Intake Total 970 40 Output Total 700 170 Balance 270 -130 - Medications Medications: Current Medications Acetaminophen (Tylenol 325mg Tab) 650 mg PO Q6 PRN PRN Reason: Fever >100.4 F Last Admin: 09/09/17 05:31 Dose: 650 mg Albuterol/Ipratropium (Duoneb 3 Mg/0.5 Mg (3 Ml) Ud) 3 ml INH RQ6 [facility] Last Admin: 09/09/17 08:08 Dose: 3 ml Amantadine HCl (Symmetrel) 100 mg PO DAILY [facility] Last Admin: 09/08/17 09:41 Dose: 100 mg Bisacodyl (Dulcolax) 10 mg [place] ONCE PRN PRN Reason: consipation Carbamazepine (Tegretol) 100 mg PEG Q8 [facility] Last Admin: 09/09/17 05:29 Dose: 100 mg Enoxaparin Sodium (Lovenox) 40 mg SC DAILY [facility] Last Admin: 09/08/17 09:28 Dose: 40 mg Metronidazole (Flagyl) 500 mg in 100 mls @ 100 mls/hr IVPB Q8 [facility] PRN Reason: Protocol Last Admin: 09/09/17 05:29 Dose: 100 mls/hr Vancomycin/Sodium Chloride (Vancomycin 1 Gm/Ns 200 Ml) 1 gm in 200 mls @ 133 mls/hr IVPB Q24H [facility] PRN Reason: Protocol Stop: 09/11/17 18:01 Last Admin: 09/08/17 17:21 Dose: 133 mls/hr Doxycycline Hyclate 100 mg/ (Sodium Chloride) 100 mls @ 100 mls/hr IVPB Q12H [facility] PRN Reason: Protocol Last Admin: 09/09/17 03:12 Dose: 100 mls/hr Pantoprazole Sodium (Protonix Susp) 40 mg PO DAILY [facility] Last Admin: 09/08/17 09:21 Dose: 40 mg Rosuvastatin Calcium (Crestor) 5 mg PO HS [facility] Last Admin: 09/08/17 21:05 Dose: 5 mg Valproate Sodium (Depakene Oral Soln) 250 mg PEG Q12 [facility] Last Admin: 09/08/17 21:05 Dose: 250 mg - Labs Labs: 09/09/17 06:17 09/09/17 06:17 PT 22.0 SECONDS (9.7-12.2) H 09/07/17 06:08 INR 2.0 09/07/17 06:08 APTT 43 SECONDS (21-34) H 09/07/17 06:08 - Constitutional Appears: No Acute Distress, Chronically Ill - Head Exam Head Exam: ATRAUMATIC, NORMAL INSPECTION, NORMOCEPHALIC - Eye Exam Eye Exam: EOMI, Normal appearance, PERRL Pupil Exam: NORMAL ACCOMODATION, PERRL - Respiratory Exam Respiratory Exam: Decreased Breath Sounds, Rhonchi, NORMAL BREATHING PATTERN - Cardiovascular Exam Cardiovascular Exam: REGULAR RHYTHM, +S1, +S2 - GI/Abdominal Exam GI & Abdominal Exam: Soft, Normal Bowel Sounds. absent: Tenderness - Rectal Exam Rectal Exam: Deferred Assessment and Plan (1) Sepsis Status: Acute (2) Fever Status: Acute (3) Seizure disorder Status: Acute (4) COPD (chronic obstructive pulmonary disease) Status: Chronic (5) PVD (peripheral vascular disease) Status: Chronic (6) Respiratory failure Status: Acute (7) Status post tracheostomy Assessment & Plan: respiratory toilet nebulizer antibiotics Status: Acute (8) Pneumonia Status: Acute
[2017-09-09] MEDS ORDERED: Albumin Human 25% (12.5 gm/50 ml) IV ONE (09:00)
[2017-09-09] MEDS: Valproic Acid 250 mg/5 ml UD Cup PEG SCH ×2 (09:26→21:41)
[2017-09-09] MEDS: Pantoprazole 40 mg Susp UD PO SCH (09:26)
[2017-09-09] MEDS: Amantadine 50 mg/5 ml Syrup (473 ml) PO SCH (09:29)
--- NOTE | 2017-09-09 09:35 | RAD ---
HISTORY: vented, possible tracheostomy COMPARISON: No prior. FINDINGS: LUNGS: Right postsurgical lung volume loss -similar Right upper lobe pleural-parenchymal opacity with coalescent cystic changes-similar PLEURA: Small bilateral pleural effusions - probable and similar. Otherwise bibasilar inferolateral pleural thickening -similar No pneumothorax apparent. CARDIOVASCULAR: Limited assessment given rightward mediastinal shift OSSEOUS STRUCTURES: Right rib postsurgical changes with similar-appearing hardware VISUALIZED UPPER ABDOMEN: Gastrostomy tube epigastric region - similar albeit more conspicuous on current exam OTHER FINDINGS: Tracheostomy, unchanged.Left upper extremity PICC, unchanged. IMPRESSION: Extensive chronic changes as above. The etiology for the chronic right upper lobe are parenchymal opacity with nodular cystic component is indeterminate. Chronic inflammatory changes with or without neoplastic changes are in the considerations. Appearance is radiographically similar to multiple prior studies . No interval acute pathology noted
--- NOTE | 2017-09-09 10:10 | CP.CCUPN ---
"<Tita Xie - Last Filed: 09/09/17 10:06> CCU Subjective - Physician Review Subjective (Free Text): Patient was seen and examined at bedside. Remains on PRVC continued Rate 18, FiO2 40%, PEEP 5. Patient remains sugglish, responds to pain. ROS unattainable. S/P tracheostomy 09/07/17. Plan for LTAC - pending case management CCU Objective - Vital Signs / Intake & Output Vital Signs (Last 4 hours): Vital Signs Temp Pulse Resp BP Pulse Ox 09/09/17 08:29 87/43 L 09/09/17 08:00 98.5 F 09/09/17 07:56 103 H 44 H 86/45 L 97 09/09/17 07:00 103 H 40 H 96 09/09/17 06:56 82/44 L 09/09/17 06:31 98.5 F Intake and Output (Last 8hrs): Intake & Output 09/08/17 09/09/17 09/09/17 22:59 06:59 14:59 Intake Total 920 520 80 Output Total 460 345 170 Balance 460 175 -90 Weight 134 lb Intake: Intake, IV Amount 500 200 Left Medial Port PICC 500 200 Tube Feeding 320 320 80 Other 100 Output: Urine 280 345 50 Urethral (Garcia) 280 345 50 Stool 180 120 - Physical Exam Head: Positive for: Atraumatic, Normocephalic Pupils: Positive for: Sluggish Mouth: Positive for: Dry. Negative for: Moist Mucous Membranes Neck: Positive for: Other (tracheostomy ) Respiratory/Chest: Positive for: Clear to Auscultation, Decreased Breath Sounds (RUL ), Other (Intubated) Cardiovascular: Positive for: Normal S1, S2. Negative for: Tachycardic Abdomen: Positive for: Normal Bowel Sounds. Negative for: Distention Neurological: Negative for: GCS=15 (10T) Skin: Positive for: Warm, Dry, Normal Color. Negative for: Rashes Psychiatric: Negative for: Alert - Medications Active Medications: Active Medications Generic Name Dose Route Start Last Admin Trade Name Freq PRN Reason Stop Dose Admin Acetaminophen 650 mg 09/08/17 14:59 09/09/17 05:31 Tylenol 325mg Tab PO 650 mg Q6 PRN Administration Fever >100.4 F Albuterol/Ipratropium 3 ml 08/28/17 08:00 09/09/17 08:08 Duoneb 3 Mg/0.5 Mg (3 Ml) Ud INH 3 ml RQ6 AMY Administration Amantadine HCl 100 mg 09/05/17 10:00 09/09/17 09:29 Symmetrel PO 100 mg DAILY AMY Administration Bisacodyl 10 mg 08/29/17 08:30 Dulcolax MA ONCE PRN consipation Carbamazepine 100 mg 08/24/17 22:00 09/09/17 05:29 Tegretol PEG 100 mg Q8 AMY Administration Enoxaparin Sodium 40 mg 08/24/17 18:00 09/08/17 09:28 Lovenox SC 40 mg DAILY AMY Administration Metronidazole 500 mg in 100 mls @ 100 mls/hr 08/31/17 14:00 09/09/17 05:29 Flagyl IVPB 100 mls/hr Q8 AMY Administration Protocol Vancomycin/Sodium Chloride 1 gm in 200 mls @ 133 mls/hr 09/06/17 18:00 17:21 Vancomycin 1 Gm/Ns 200 Ml IVPB 09/11/17 18:01 133 mls/hr Q24H AMY Administration Protocol Doxycycline Hyclate 100 mg/ 100 mls @ 100 mls/hr 09/08/17 15:00 09/09/17 03: 12 Sodium Chloride IVPB 100 mls/hr Q12H AMY Administration Protocol Pantoprazole Sodium 40 mg 08/29/17 10:00 09/09/17 09:26 Protonix Susp PO 40 mg DAILY AMY Administration Rosuvastatin Calcium 5 mg 08/24/17 22:00 09/08/17 21:05 Crestor PO 5 mg HS AMY Administration Valproate Sodium 250 mg 09/02/17 22:00 09/09/17 09:26 Depakene Oral Soln PEG 250 mg Q12 AMY Administration - Patient Studies Lab Studies: Microbiology Studies 09/08/17 17:31 Gram Stain - Preliminary Trachasp 09/06/17 14:00 Blood Culture - Preliminary Blood-Thru Central Line NO GROWTH AFTER 48 HOURS 09/06/17 14:00 Blood Culture - Preliminary Blood-Thru Central Line NO GROWTH AFTER 48 HOURS 09/06/17 12:09 Gram Stain - Final Sputum Sputum Culture - Final NORMAL ORAL MELISSA Lab Studies 09/09/17 09/09/17 09/09/17 Range/Units 06:17 06:17 05:19 WBC 8.5 (4.8-10.8) K/uL RBC 2.75 L (4.40-5.90) Mil/uL Hgb 7.8 L (12.0-18.0) g/dL Hct 23.4 L (35.0-51.0) % MCV 85.1 (80.0-94.0) fL MCH 28.4 (27.0-31.0) pg MCHC 33.4 (33.0-37.0) g/dL RDW 17.3 H (11.5-14.5) % Plt Count 202 (130-400) K/uL MPV 9.0 (7.2-11.7) fL Neut % (Auto) 61.1 (50.0-75.0) % Lymph % (Auto) 18.3 L (20.0-40.0) % Morgan % (Auto) 19.6 H (0.0-10.0) % Eos % (Auto) 0.3 (0.0-4.0) % Baso % (Auto) 0.7 (0.0-2.0) % Neut # (Auto) 5.2 (1.8-7.0) K/uL Lymph # (Auto) 1.6 (1.0-4.3) K/uL Morgan # (Auto) 1.7 H (0.0-0.8) K/uL Eos # (Auto) 0.0 (0.0-0.7) K/uL Baso # (Auto) 0.1 (0.0-0.2) K/uL Puncture Site Rr pCO2 25 L (35-45) mm/Hg pO2 101 H (80-100) mm/Hg HCO3 19.4 L (21-28) mmol/L ABG pH 7.42 (7.35-7.45) ABG Total CO2 17.0 L (22-28) mmol/L ABG O2 Saturation 99.6 H (95-98) % ABG Base Excess -7.1 L (-2.0-3.0) mmol/L ABG Hemoglobin 9.3 L (11.7-17.4) g/dL ABG Carboxyhemoglobin 2.3 H (0.5-1.5) % POC ABG HHb (Measured) 0.4 (0.0-5.0) % ABG Methemoglobin 1.1 (0.0-3.0) % Collin Test Pos A-a O2 Difference 153.0 mm/Hg Respiratory Index 1.5 Hgb O2 Saturation 96.2 (95.0-98.0) % Vent Mode Prvc Mechanical Rate 18 FiO2 40.0 % Tidal Volume 400 PEEP 5 Sodium 151 H (132-148) mmol/L Potassium 3.7 (3.6-5.2) mmol/L Chloride 120 H (98-107) mmol/L Carbon Dioxide 17 L (22-30) mmol/L Anion Gap 17 (10-20) BUN 18 (9-20) mg/dL Creatinine 0.8 (0.8-1.5) mg/dL Est GFR ( Amer) > 60 Est GFR (Non-Af Amer) > 60 POC Glucose (mg/dL) (65-110) mg/dL Random Glucose 71 L (75-110) mg/dL Calcium 7.0 L (8.6-10.4) mg/dl Phosphorus 3.1 (2.5-4.5) mg/dL Magnesium 1.9 (1.6-2.3) mg/dL Total Bilirubin 5.2 H (0.2-1.3) mg/dL AST 36 (17-59) U/L ALT < 6 L (21-72) U/L Alkaline Phosphatase 56 (38-126) U/L Total Protein 6.4 (6.3-8.3) g/dL Albumin 1.9 L (3.5-5.0) g/dL Globulin 4.4 H (2.2-3.9) gm/dL Albumin/Globulin Ratio 0.4 L (1.0-2.1) C. difficile Ag & Toxin (NEGATIVE) 09/09/17 09/08/17 09/08/17 Range/Units 05:06 23:36 17:25 WBC (4.8-10.8) K/uL RBC (4.40-5.90) Mil/uL Hgb (12.0-18.0) g/dL Hct (35.0-51.0) % MCV (80.0-94.0) fL MCH (27.0-31.0) pg MCHC (33.0-37.0) g/dL RDW (11.5-14.5) % Plt Count (130-400) K/uL MPV (7.2-11.7) fL Neut % (Auto) (50.0-75.0) % Lymph % (Auto) (20.0-40.0) % Morgan % (Auto) (0.0-10.0) % Eos % (Auto) (0.0-4.0) % Baso % (Auto) (0.0-2.0) % Neut # (Auto) (1.8-7.0) K/uL Lymph # (Auto) (1.0-4.3) K/uL Morgan # (Auto) (0.0-0.8) K/uL Eos # (Auto) (0.0-0.7) K/uL Baso # (Auto) (0.0-0.2) K/uL Puncture Site pCO2 (35-45) mm/Hg pO2 (80-100) mm/Hg HCO3 (21-28) mmol/L ABG pH (7.35-7.45) ABG Total CO2 (22-28) mmol/L ABG O2 Saturation (95-98) % ABG Base Excess (-2.0-3.0) mmol/L ABG Hemoglobin (11.7-17.4) g/dL ABG Carboxyhemoglobin (0.5-1.5) % POC ABG HHb (Measured) (0.0-5.0) % ABG Methemoglobin (0.0-3.0) % Collin Test A-a O2 Difference mm/Hg Respiratory Index Hgb O2 Saturation (95.0-98.0) % Vent Mode Mechanical Rate FiO2 % Tidal Volume PEEP Sodium (132-148) mmol/L Potassium (3.6-5.2) mmol/L Chloride (98-107) mmol/L Carbon Dioxide (22-30) mmol/L Anion Gap (10-20) BUN (9-20) mg/dL Creatinine (0.8-1.5) mg/dL Est GFR ( Amer) Est GFR (Non-Af Amer) POC Glucose (mg/dL) 72 94 92 (65-110) mg/dL Random Glucose (75-110) mg/dL Calcium (8.6-10.4) mg/dl Phosphorus (2.5-4.5) mg/dL Magnesium (1.6-2.3) mg/dL Total Bilirubin (0.2-1.3) mg/dL AST (17-59) U/L ALT (21-72) U/L Alkaline Phosphatase (38-126) U/L Total Protein (6.3-8.3) g/dL Albumin (3.5-5.0) g/dL Globulin (2.2-3.9) gm/dL Albumin/Globulin Ratio (1.0-2.1) C. difficile Ag & Toxin (NEGATIVE) 09/08/17 09/08/17 Range/Units 14:47 11:11 WBC (4.8-10.8) K/uL RBC (4.40-5.90) Mil/uL Hgb (12.0-18.0) g/dL Hct (35.0-51.0) % MCV (80.0-94.0) fL MCH (27.0-31.0) pg MCHC (33.0-37.0) g/dL RDW (11.5-14.5) % Plt Count (130-400) K/uL MPV (7.2-11.7) fL Neut % (Auto) (50.0-75.0) % Lymph % (Auto) (20.0-40.0) % Morgan % (Auto) (0.0-10.0) % Eos % (Auto) (0.0-4.0) % Baso % (Auto) (0.0-2.0) % Neut # (Auto) (1.8-7.0) K/uL Lymph # (Auto) (1.0-4.3) K/uL Morgan # (Auto) (0.0-0.8) K/uL Eos # (Auto) (0.0-0.7) K/uL Baso # (Auto) (0.0-0.2) K/uL Puncture Site pCO2 (35-45) mm/Hg pO2 (80-100) mm/Hg HCO3 (21-28) mmol/L ABG pH (7.35-7.45) ABG Total CO2 (22-28) mmol/L ABG O2 Saturation (95-98) % ABG Base Excess (-2.0-3.0) mmol/L ABG Hemoglobin (11.7-17.4) g/dL ABG Carboxyhemoglobin (0.5-1.5) % POC ABG HHb (Measured) (0.0-5.0) % ABG Methemoglobin (0.0-3.0) % Collin Test A-a O2 Difference mm/Hg Respiratory Index Hgb O2 Saturation (95.0-98.0) % Vent Mode Mechanical Rate FiO2 % Tidal Volume PEEP Sodium (132-148) mmol/L Potassium (3.6-5.2) mmol/L Chloride (98-107) mmol/L Carbon Dioxide (22-30) mmol/L Anion Gap (10-20) BUN (9-20) mg/dL Creatinine (0.8-1.5) mg/dL Est GFR ( Amer) Est GFR (Non-Af Amer) POC Glucose (mg/dL) 99 (65-110) mg/dL Random Glucose (75-110) mg/dL Calcium (8.6-10.4) mg/dl Phosphorus (2.5-4.5) mg/dL Magnesium (1.6-2.3) mg/dL Total Bilirubin (0.2-1.3) mg/dL AST (17-59) U/L ALT (21-72) U/L Alkaline Phosphatase (38-126) U/L Total Protein (6.3-8.3) g/dL Albumin (3.5-5.0) g/dL Globulin (2.2-3.9) gm/dL Albumin/Globulin Ratio (1.0-2.1) C. difficile Ag & Toxin Negative (NEGATIVE) Laboratory Results - last 24 hr 09/08/17 09/08/17 09/08/17 11:11 14:47 17:25 WBC RBC Hgb Hct MCV MCH MCHC RDW Plt Count MPV Neut % (Auto) Lymph % (Auto) Morgan % (Auto) Eos % (Auto) Baso % (Auto) Neut # (Auto) Lymph # (Auto) Morgan # (Auto) Eos # (Auto) Baso # (Auto) Puncture Site pCO2 pO2 HCO3 ABG pH ABG Total CO2 ABG O2 Saturation ABG Base Excess ABG Hemoglobin ABG Carboxyhemoglobin POC ABG HHb (Measured) ABG Methemoglobin Collin Test A-a O2 Difference Respiratory Index Hgb O2 Saturation Vent Mode Mechanical Rate FiO2 Tidal Volume PEEP Sodium Potassium Chloride Carbon Dioxide Anion Gap BUN Creatinine Est GFR ( Amer) Est GFR (Non-Af Amer) POC Glucose (mg/dL) 99 92 Random Glucose Calcium Phosphorus Magnesium Total Bilirubin AST ALT Alkaline Phosphatase Total Protein Albumin Globulin Albumin/Globulin Ratio C. difficile Ag & Toxin Negative 09/08/17 09/09/17 09/09/17 23:36 05:06 05:19 WBC RBC Hgb Hct MCV MCH MCHC RDW Plt Count MPV Neut % (Auto) Lymph % (Auto) Morgan % (Auto) Eos % (Auto) Baso % (Auto) Neut # (Auto) Lymph # (Auto) Morgan # (Auto) Eos # (Auto) Baso # (Auto) Puncture Site Rr pCO2 25 L pO2 101 H HCO3 19.4 L ABG pH 7.42 ABG Total CO2 17.0 L ABG O2 Saturation 99.6 H ABG Base Excess -7.1 L ABG Hemoglobin 9.3 L ABG Carboxyhemoglobin 2.3 H POC ABG HHb (Measured) 0.4 ABG Methemoglobin 1.1 Collin Test Pos A-a O2 Difference 153.0 Respiratory Index 1.5 Hgb O2 Saturation 96.2 Vent Mode Prvc Mechanical Rate 18 FiO2 40.0 Tidal Volume 400 PEEP 5 Sodium Potassium Chloride Carbon Dioxide Anion Gap BUN Creatinine Est GFR ( Amer) Est GFR (Non-Af Amer) POC Glucose (mg/dL) 94 72 Random Glucose Calcium Phosphorus Magnesium Total Bilirubin AST ALT Alkaline Phosphatase Total Protein Albumin Globulin Albumin/Globulin Ratio C. difficile Ag & Toxin 09/09/17 09/09/17 06:17 06:17 WBC 8.5 RBC 2.75 L Hgb 7.8 L Hct 23.4 L MCV 85.1 MCH 28.4 MCHC 33.4 RDW 17.3 H Plt Count 202 MPV 9.0 Neut % (Auto) 61.1 Lymph % (Auto) 18.3 L Morgan % (Auto) 19.6 H Eos % (Auto) 0.3 Baso % (Auto) 0.7 Neut # (Auto) 5.2 Lymph # (Auto) 1.6 Morgan # (Auto) 1.7 H Eos # (Auto) 0.0 Baso # (Auto) 0.1 Puncture Site pCO2 pO2 HCO3 ABG pH ABG Total CO2 ABG O2 Saturation ABG Base Excess ABG Hemoglobin ABG Carboxyhemoglobin POC ABG HHb (Measured) ABG Methemoglobin Collin Test A-a O2 Difference Respiratory Index Hgb O2 Saturation Vent Mode Mechanical Rate FiO2 Tidal Volume PEEP Sodium 151 H Potassium 3.7 Chloride 120 H Carbon Dioxide 17 L Anion Gap 17 BUN 18 Creatinine 0.8 Est GFR ( Amer) > 60 Est GFR (Non-Af Amer) > 60 POC Glucose (mg/dL) Random Glucose 71 L Calcium 7.0 L Phosphorus 3.1 Magnesium 1.9 Total Bilirubin 5.2 H AST 36 ALT < 6 L Alkaline Phosphatase 56 Total Protein 6.4 Albumin 1.9 L Globulin 4.4 H Albumin/Globulin Ratio 0.4 L C. difficile Ag & Toxin Fingerstick Blood Sugar Results: 72 Critical Care Progress Note - Nutrition Nutrition: Nutrition Category Date Time Status NPO Diet [DIET] Diets 09/07/17 Dinner Active Assessment/Plan - Assessment and Plan (Free Text) Assessment: 77 year old male with PMHx of Arthritis, Asthma, COPD, Severe Dementia, HTN, Seizures, TIA with PEG, and Right AKA presents from long-term due to fever. Admitted to ICU, intubated due to respiratory failure. Code Sepsis 2/2 Mycoplasma Pneumonia 08/27/17, Entercolitis. S/P bronchoscopy 09/03/17. S/P Tracheostomy 09/07/17. Pending LTAC placement Plan: Neuro: GCS: 10T Sedation: None A: Severe Dementia, Hx of Seizure Home Carbamazepine 100mg Q8 | Home Valproic Acid 250mg PEG QID Changed to Q12H Amantadine 100mg PO Daily per Neuro Cardio: A: HTN, Hx of TIA, HLD Crestor 5mg PO HS Pulm: A: Hypoxic Res. Failure, Asthma, COPD, Mycoplasma Pneumonia + 08/27/17 CXR (Admission): Stable postsurgical changes in the right lung with low lung volume and shift of mediastinal to the right. No acute findings. CXR (09/03): No significant interval change in right upper lobe cystic changes/ bulla and right pleural effusion. Stable position of endotracheal tube. S/P bronchoscopy 09/03/17 - bronchial washings - negative for any growth S/P Tracheostomy 09/07/[address] Celestine Monae Scheduled Endo A: Hypoglycemia (Stable) GI: A: Enterocolitis CT chest Abd/Pelvis (08/27): Enterocolits; ascities;mild bladder wall thickening with air in the bladder, iatrogenic versus infectious. -Flagyl started 08/31/17 A: Elevated T. Bili - Continue to monitor, unremarkable on CT Scan Renal: A: Hypocalcemia, corrected calcium - within normal limits, Hypokalemia Replace electrolytes PRN Heme/Onc: A: Normocytic Anemia HgB stable at new baseline of low 8s Transfused 1 unit throughout admission Transfused 2nd unit 09/07/17 Stool Occult Blood - NEGATIVE ID A: Code Sepsis, Leukocytosis (Resolved) ID on Consult, Recs Appreciated - Dr. Muñoz Cultures (08/24, 08/31) Blood - NEGATIVE to date | Urine - NEGATIVE to date | Sputum - Normal Oral Melissa | MRSA - NEGATIVE Wound Cultures - Coagulase Neg Staph, Likely normal Skin Melissa Mycoplasma Pneumonia IgM - POSITIVE, Patient has chronic Mycoplasma IgM. This was positive on 08/03/17 AFB Sputum Culture x 2 negative, Aspergillus AB and Antigen, H. Galactomannan Antigen, Histoplasma AB,- ALL NEGATIVE, Quant Gold - PENDING Antibiotics: Stopped - Moxifloxacin 400mg Q24H (09/01-09/08). stopped Micafungin 100mg Q24H started on 09/01 - Switched to doxy 100 Q12 09/08/17 and continued Flagyl 500mg Q8H started 08/31, continued Vanco 1 gram Q24 09/06 - spiked 101F 09/05/17 at 12:30pm - was not suh cultured, low grade fever 100.6F on 09/08, 100.9 5:30am 09/09 - pending repeat cultures 09/07 and 09/08 Integumentary A: Left Lower ext wounds Wound Care Prophylaxis Protonix Lovenox (Held) due to tracheostomy 09/07/17 Diet: Tube Feeding - Jevity 1.5 Lines: Right IJ Central Line removed, placed Left PICC line 09/06/17, consent retrieved from Elizabet legal guardian [phone] Disposition: Pending placement in LTAC. DW with ICU Attending - Dr. Leanne Bain, Tita Xie, PGY-1 <Juliann Bain M - Last Filed: 09/09/17 11:51> CCU Objective - Vital Signs / Intake & Output Vital Signs (Last 4 hours): Vital Signs Temp Pulse Resp BP Pulse Ox 09/09/17 11:36 92 H 30 H 98/48 L 97 09/09/17 10:29 96 H 32 H 85/44 L 94 L 09/09/17 09:43 98 H 30 H 83/46 L 93 L 09/09/17 08:41 104 H 31 H 91/45 L 99 09/09/17 08:29 102 H 27 H 87/43 L 97 09/09/17 08:00 98.5 F 09/09/17 07:56 103 H 44 H 86/45 L 97 Intake and Output (Last 8hrs): Intake & Output 09/08/17 09/09/17 09/09/17 22:59 06:59 14:59 Intake Total 920 520 420 Output Total 460 345 170 Balance 460 175 250 Weight 134 lb Intake: Intake, IV Amount 500 200 100 Left Medial Port PICC 500 200 100 Tube Feeding 320 320 320 Other 100 Output: Urine 280 345 50 Urethral (Garcia) 280 345 50 Stool 180 120 - Medications Active Medications: Active Medications Generic Name Dose Route Start Last Admin Trade Name Freq PRN Reason Stop Dose Admin Acetaminophen 650 mg 09/08/17 14:59 09/09/17 05:31 Tylenol 325mg Tab PO 650 mg Q6 PRN Administration Fever >100.4 F Albuterol/Ipratropium 3 ml 08/28/17 08:00 09/09/17 08:08 Duoneb 3 Mg/0.5 Mg (3 Ml) Ud INH 3 ml RQ6 AMY Administration Amantadine HCl 100 mg 09/05/17 10:00 09/09/17 09:29 Symmetrel PO 100 mg DAILY AMY Administration Bisacodyl 10 mg 08/29/17 08:30 Dulcolax MA ONCE PRN consipation Carbamazepine 100 mg 08/24/17 22:00 09/09/17 05:29 Tegretol PEG 100 mg Q8 AMY Administration Heparin Sodium (Porcine) 5,000 units 09/09/17 11:00 Heparin SC Q12 AMY Metronidazole 500 mg in 100 mls @ 100 mls/hr 05/29/18 14:00 09/09/17 05:29 Flagyl IVPB 100 mls/hr Q8 AMY Administration Protocol Vancomycin/Sodium Chloride 1 gm in 200 mls @ 133 mls/hr 09/06/17 18:00 17:21 Vancomycin 1 Gm/Ns 200 Ml IVPB 09/11/17 18:01 133 mls/hr Q24H AMY Administration Protocol Doxycycline Hyclate 100 mg/ 100 mls @ 100 mls/hr 09/08/17 15:00 09/09/17 03: 12 Sodium Chloride IVPB 100 mls/hr Q12H AMY Administration Protocol Pantoprazole Sodium 40 mg 08/29/17 10:00 09/09/17 09:26 Protonix Susp PO 40 mg DAILY AMY Administration Rosuvastatin Calcium 5 mg 08/24/17 22:00 09/08/17 21:05 Crestor PO 5 mg HS AMY Administration Valproate Sodium 250 mg 09/02/17 22:00 09/09/17 09:26 Depakene Oral Soln PEG 250 mg Q12 AMY Administration - Patient Studies Lab Studies: Microbiology Studies 09/08/17 12:57 Urine Culture - Final Urine,Garcia No Growth (<1,000 CFU/ML) 09/08/17 17:31 Gram Stain - Preliminary Trachasp 09/06/17 14:00 Blood Culture - Preliminary Blood-Thru Central Line NO GROWTH AFTER 48 HOURS 09/06/17 14:00 Blood Culture - Preliminary Blood-Thru Central Line NO GROWTH AFTER 48 HOURS 09/06/17 12:09 Gram Stain - Final Sputum Sputum Culture - Final NORMAL ORAL MELISSA Lab Studies 09/09/17 09/09/17 09/09/17 Range/Units 11:29 09:52 09:52 WBC (4.8-10.8) K/uL RBC (4.40-5.90) Mil/uL Hgb (12.0-18.0) g/dL Hct (35.0-51.0) % MCV (80.0-94.0) fL MCH (27.0-31.0) pg MCHC (33.0-37.0) g/dL RDW (11.5-14.5) % Plt Count (130-400) K/uL MPV (7.2-11.7) fL Neut % (Auto) (50.0-75.0) % Lymph % (Auto) (20.0-40.0) % Morgan % (Auto) (0.0-10.0) % Eos % (Auto) (0.0-4.0) % Baso % (Auto) (0.0-2.0) % Neut # (Auto) (1.8-7.0) K/uL Lymph # (Auto) (1.0-4.3) K/uL Morgan # (Auto) (0.0-0.8) K/uL Eos # (Auto) (0.0-0.7) K/uL Baso # (Auto) (0.0-0.2) K/uL Puncture Site pCO2 (35-45) mm/Hg pO2 (80-100) mm/Hg HCO3 (21-28) mmol/L ABG pH (7.35-7.45) ABG Total CO2 (22-28) mmol/L ABG O2 Saturation (95-98) % ABG Base Excess (-2.0-3.0) mmol/L ABG Hemoglobin (11.7-17.4) g/dL ABG Carboxyhemoglobin (0.5-1.5) % POC ABG HHb (Measured) (0.0-5.0) % ABG Methemoglobin (0.0-3.0) % Collin Test A-a O2 Difference mm/Hg Respiratory Index Hgb O2 Saturation (95.0-98.0) % Vent Mode Mechanical Rate FiO2 % Tidal Volume PEEP Sodium (132-148) mmol/L Potassium (3.6-5.2) mmol/L Chloride (98-107) mmol/L Carbon Dioxide (22-30) mmol/L Anion Gap (10-20) BUN (9-20) mg/dL Creatinine (0.8-1.5) mg/dL Est GFR ( Amer) Est GFR (Non-Af Amer) POC Glucose (mg/dL) 92 (65-110) mg/dL Random Glucose (75-110) mg/dL Calcium (8.6-10.4) mg/dl Phosphorus (2.5-4.5) mg/dL Magnesium (1.6-2.3) mg/dL Iron 10 L (49-181) ug/dL TIBC 112 L (250-450) ug/dL % Saturation 8.92 L (20-55) Ferritin 472.0 ng/mL Total Bilirubin (0.2-1.3) mg/dL AST (17-59) U/L ALT (21-72) U/L Alkaline Phosphatase (38-126) U/L Total Protein (6.3-8.3) g/dL Albumin (3.5-5.0) g/dL Globulin (2.2-3.9) gm/dL Albumin/Globulin Ratio (1.0-2.1) C. difficile Ag & Toxin (NEGATIVE) 09/09/17 09/09/17 09/09/17 Range/Units 06:17 06:17 05:19 WBC 8.5 (4.8-10.8) K/uL RBC 2.75 L (4.40-5.90) Mil/uL Hgb 7.8 L (12.0-18.0) g/dL Hct 23.4 L (35.0-51.0) % MCV 85.1 (80.0-94.0) fL MCH 28.4 (27.0-31.0) pg MCHC 33.4 (33.0-37.0) g/dL RDW 17.3 H (11.5-14.5) % Plt Count 202 (130-400) K/uL MPV 9.0 (7.2-11.7) fL Neut % (Auto) 61.1 (50.0-75.0) % Lymph % (Auto) 18.3 L (20.0-40.0) % Morgan % (Auto) 19.6 H (0.0-10.0) % Eos % (Auto) 0.3 (0.0-4.0) % Baso % (Auto) 0.7 (0.0-2.0) % Neut # (Auto) 5.2 (1.8-7.0) K/uL Lymph # (Auto) 1.6 (1.0-4.3) K/uL Morgan # (Auto) 1.7 H (0.0-0.8) K/uL Eos # (Auto) 0.0 (0.0-0.7) K/uL Baso # (Auto) 0.1 (0.0-0.2) K/uL Puncture Site Rr pCO2 25 L (35-45) mm/Hg pO2 101 H (80-100) mm/Hg HCO3 19.4 L (21-28) mmol/L ABG pH 7.42 (7.35-7.45) ABG Total CO2 17.0 L (22-28) mmol/L ABG O2 Saturation 99.6 H (95-98) % ABG Base Excess -7.1 L (-2.0-3.0) mmol/L ABG Hemoglobin 9.3 L (11.7-17.4) g/dL ABG Carboxyhemoglobin 2.3 H (0.5-1.5) % POC ABG HHb (Measured) 0.4 (0.0-5.0) % ABG Methemoglobin 1.1 (0.0-3.0) % Collin Test Pos A-a O2 Difference 153.0 mm/Hg Respiratory Index 1.5 Hgb O2 Saturation 96.2 (95.0-98.0) % Vent Mode Prvc Mechanical Rate 18 FiO2 40.0 % Tidal Volume 400 PEEP 5 Sodium 151 H (132-148) mmol/L Potassium 3.7 (3.6-5.2) mmol/L Chloride 120 H (98-107) mmol/L Carbon Dioxide 17 L (22-30) mmol/L Anion Gap 17 (10-20) BUN 18 (9-20) mg/dL Creatinine 0.8 (0.8-1.5) mg/dL Est GFR ( Amer) > 60 Est GFR (Non-Af Amer) > 60 POC Glucose (mg/dL) (65-110) mg/dL Random Glucose 71 L (75-110) mg/dL Calcium 7.0 L (8.6-10.4) mg/dl Phosphorus 3.1 (2.5-4.5) mg/dL Magnesium 1.9 (1.6-2.3) mg/dL Iron (49-181) ug/dL TIBC (250-450) ug/dL % Saturation (20-55) Ferritin ng/mL Total Bilirubin 5.2 H (0.2-1.3) mg/dL AST 36 (17-59) U/L ALT < 6 L (21-72) U/L Alkaline Phosphatase 56 (38-126) U/L Total Protein 6.4 (6.3-8.3) g/dL Albumin 1.9 L (3.5-5.0) g/dL Globulin 4.4 H (2.2-3.9) gm/dL Albumin/Globulin Ratio 0.4 L (1.0-2.1) C. difficile Ag & Toxin (NEGATIVE) 09/09/17 09/08/17 09/08/17 Range/Units 05:06 23:36 17:25 WBC (4.8-10.8) K/uL RBC (4.40-5.90) Mil/uL Hgb (12.0-18.0) g/dL Hct (35.0-51.0) % MCV (80.0-94.0) fL MCH (27.0-31.0) pg MCHC (33.0-37.0) g/dL RDW (11.5-14.5) % Plt Count (130-400) K/uL MPV (7.2-11.7) fL Neut % (Auto) (50.0-75.0) % Lymph % (Auto) (20.0-40.0) % Morgan % (Auto) (0.0-10.0) % Eos % (Auto) (0.0-4.0) % Baso % (Auto) (0.0-2.0) % Neut # (Auto) (1.8-7.0) K/uL Lymph # (Auto) (1.0-4.3) K/uL Morgan # (Auto) (0.0-0.8) K/uL Eos # (Auto) (0.0-0.7) K/uL Baso # (Auto) (0.0-0.2) K/uL Puncture Site pCO2 (35-45) mm/Hg pO2 (80-100) mm/Hg HCO3 (21-28) mmol/L ABG pH (7.35-7.45) ABG Total CO2 (22-28) mmol/L ABG O2 Saturation (95-98) % ABG Base Excess (-2.0-3.0) mmol/L ABG Hemoglobin (11.7-17.4) g/dL ABG Carboxyhemoglobin (0.5-1.5) % POC ABG HHb (Measured) (0.0-5.0) % ABG Methemoglobin (0.0-3.0) % Collin Test A-a O2 Difference mm/Hg Respiratory Index Hgb O2 Saturation (95.0-98.0) % Vent Mode Mechanical Rate FiO2 % Tidal Volume PEEP Sodium (132-148) mmol/L Potassium (3.6-5.2) mmol/L Chloride (98-107) mmol/L Carbon Dioxide (22-30) mmol/L Anion Gap (10-20) BUN (9-20) mg/dL Creatinine (0.8-1.5) mg/dL Est GFR ( Amer) Est GFR (Non-Af Amer) POC Glucose (mg/dL) 72 94 92 (65-110) mg/dL Random Glucose (75-110) mg/dL Calcium (8.6-10.4) mg/dl Phosphorus (2.5-4.5) mg/dL Magnesium (1.6-2.3) mg/dL Iron (49-181) ug/dL TIBC (250-450) ug/dL % Saturation (20-55) Ferritin ng/mL Total Bilirubin (0.2-1.3) mg/dL AST (17-59) U/L ALT (21-72) U/L Alkaline Phosphatase (38-126) U/L Total Protein (6.3-8.3) g/dL Albumin (3.5-5.0) g/dL Globulin (2.2-3.9) gm/dL Albumin/Globulin Ratio (1.0-2.1) C. difficile Ag & Toxin (NEGATIVE) 09/08/17 Range/Units 14:47 WBC (4.8-10.8) K/uL RBC (4.40-5.90) Mil/uL Hgb (12.0-18.0) g/dL Hct (35.0-51.0) % MCV (80.0-94.0) fL MCH (27.0-31.0) pg MCHC (33.0-37.0) g/dL RDW (11.5-14.5) % Plt Count (130-400) K/uL MPV (7.2-11.7) fL Neut % (Auto) (50.0-75.0) % Lymph % (Auto) (20.0-40.0) % Morgan % (Auto) (0.0-10.0) % Eos % (Auto) (0.0-4.0) % Baso % (Auto) (0.0-2.0) % Neut # (Auto) (1.8-7.0) K/uL Lymph # (Auto) (1.0-4.3) K/uL Morgan # (Auto) (0.0-0.8) K/uL Eos # (Auto) (0.0-0.7) K/uL Baso # (Auto) (0.0-0.2) K/uL Puncture Site pCO2 (35-45) mm/Hg pO2 (80-100) mm/Hg HCO3 (21-28) mmol/L ABG pH (7.35-7.45) ABG Total CO2 (22-28) mmol/L ABG O2 Saturation (95-98) % ABG Base Excess (-2.0-3.0) mmol/L ABG Hemoglobin (11.7-17.4) g/dL ABG Carboxyhemoglobin (0.5-1.5) % POC ABG HHb (Measured) (0.0-5.0) % ABG Methemoglobin (0.0-3.0) % Collin Test A-a O2 Difference mm/Hg Respiratory Index Hgb O2 Saturation (95.0-98.0) % Vent Mode Mechanical Rate FiO2 % Tidal Volume PEEP Sodium (132-148) mmol/L Potassium (3.6-5.2) mmol/L Chloride (98-107) mmol/L Carbon Dioxide (22-30) mmol/L Anion Gap (10-20) BUN (9-20) mg/dL Creatinine (0.8-1.5) mg/dL Est GFR ( Amer) Est GFR (Non-Af Amer) POC Glucose (mg/dL) (65-110) mg/dL Random Glucose (75-110) mg/dL Calcium (8.6-10.4) mg/dl Phosphorus (2.5-4.5) mg/dL Magnesium (1.6-2.3) mg/dL Iron (49-181) ug/dL TIBC (250-450) ug/dL % Saturation (20-55) Ferritin ng/mL Total Bilirubin (0.2-1.3) mg/dL AST (17-59) U/L ALT (21-72) U/L Alkaline Phosphatase (38-126) U/L Total Protein (6.3-8.3) g/dL Albumin (3.5-5.0) g/dL Globulin (2.2-3.9) gm/dL Albumin/Globulin Ratio (1.0-2.1) C. difficile Ag & Toxin Negative (NEGATIVE) Laboratory Results - last 24 hr 09/08/17 09/08/17 09/08/17 14:47 17:25 23:36 WBC RBC Hgb Hct MCV MCH MCHC RDW Plt Count MPV Neut % (Auto) Lymph % (Auto) Morgan % (Auto) Eos % (Auto) Baso % (Auto) Neut # (Auto) Lymph # (Auto) Morgan # (Auto) Eos # (Auto) Baso # (Auto) Puncture Site pCO2 pO2 HCO3 ABG pH ABG Total CO2 ABG O2 Saturation ABG Base Excess ABG Hemoglobin ABG Carboxyhemoglobin POC ABG HHb (Measured) ABG Methemoglobin Collin Test A-a O2 Difference Respiratory Index Hgb O2 Saturation Vent Mode Mechanical Rate FiO2 Tidal Volume PEEP Sodium Potassium Chloride Carbon Dioxide Anion Gap BUN Creatinine Est GFR ( Amer) Est GFR (Non-Af Amer) POC Glucose (mg/dL) 92 94 Random Glucose Calcium Phosphorus Magnesium Iron TIBC % Saturation Ferritin Total Bilirubin AST ALT Alkaline Phosphatase Total Protein Albumin Globulin Albumin/Globulin Ratio C. difficile Ag & Toxin Negative 09/09/17 09/09/17 09/09/17 05:06 05:19 06:17 WBC 8.5 RBC 2.75 L Hgb 7.8 L Hct 23.4 L MCV 85.1 MCH 28.4 MCHC 33.4 RDW 17.3 H Plt Count 202 MPV 9.0 Neut % (Auto) 61.1 Lymph % (Auto) 18.3 L Morgan % (Auto) 19.6 H Eos % (Auto) 0.3 Baso % (Auto) 0.7 Neut # (Auto) 5.2 Lymph # (Auto) 1.6 Morgan # (Auto) 1.7 H Eos # (Auto) 0.0 Baso # (Auto) 0.1 Puncture Site Rr pCO2 25 L pO2 101 H HCO3 19.4 L ABG pH 7.42 ABG Total CO2 17.0 L ABG O2 Saturation 99.6 H ABG Base Excess -7.1 L ABG Hemoglobin 9.3 L ABG Carboxyhemoglobin 2.3 H POC ABG HHb (Measured) 0.4 ABG Methemoglobin 1.1 Collin Test Pos A-a O2 Difference 153.0 Respiratory Index 1.5 Hgb O2 Saturation 96.2 Vent Mode Prvc Mechanical Rate 18 FiO2 40.0 Tidal Volume 400 PEEP 5 Sodium Potassium Chloride Carbon Dioxide Anion Gap BUN Creatinine Est GFR ( Amer) Est GFR (Non-Af Amer) POC Glucose (mg/dL) 72 Random Glucose Calcium Phosphorus Magnesium Iron TIBC % Saturation Ferritin Total Bilirubin AST ALT Alkaline Phosphatase Total Protein Albumin Globulin Albumin/Globulin Ratio C. difficile Ag & Toxin 09/09/17 09/09/17 09/09/17 06:17 09:52 09:52 WBC RBC Hgb Hct MCV MCH MCHC RDW Plt Count MPV Neut % (Auto) Lymph % (Auto) Morgan % (Auto) Eos % (Auto) Baso % (Auto) Neut # (Auto) Lymph # (Auto) Morgan # (Auto) Eos # (Auto) Baso # (Auto) Puncture Site pCO2 pO2 HCO3 ABG pH ABG Total CO2 ABG O2 Saturation ABG Base Excess ABG Hemoglobin ABG Carboxyhemoglobin POC ABG HHb (Measured) ABG Methemoglobin Collin Test A-a O2 Difference Respiratory Index Hgb O2 Saturation Vent Mode Mechanical Rate FiO2 Tidal Volume PEEP Sodium 151 H Potassium 3.7 Chloride 120 H Carbon Dioxide 17 L Anion Gap 17 BUN 18 Creatinine 0.8 Est GFR ( Amer) > 60 Est GFR (Non-Af Amer) > 60 POC Glucose (mg/dL) Random Glucose 71 L Calcium 7.0 L Phosphorus 3.1 Magnesium 1.9 Iron 10 L TIBC 112 L % Saturation 8.92 L Ferritin 472.0 Total Bilirubin 5.2 H AST 36 ALT < 6 L Alkaline Phosphatase 56 Total Protein 6.4 Albumin 1.9 L Globulin 4.4 H Albumin/Globulin Ratio 0.4 L C. difficile Ag & Toxin 09/09/17 11:29 WBC RBC Hgb Hct MCV MCH MCHC RDW Plt Count MPV Neut % (Auto) Lymph % (Auto) Morgan % (Auto) Eos % (Auto) Baso % (Auto) Neut # (Auto) Lymph # (Auto) Morgan # (Auto) Eos # (Auto) Baso # (Auto) Puncture Site pCO2 pO2 HCO3 ABG pH ABG Total CO2 ABG O2 Saturation ABG Base Excess ABG Hemoglobin ABG Carboxyhemoglobin POC ABG HHb (Measured) ABG Methemoglobin Collin Test A-a O2 Difference Respiratory Index Hgb O2 Saturation Vent Mode Mechanical Rate FiO2 Tidal Volume PEEP Sodium Potassium Chloride Carbon Dioxide Anion Gap BUN Creatinine Est GFR ( Amer) Est GFR (Non-Af Amer) POC Glucose (mg/dL) 92 Random Glucose Calcium Phosphorus Magnesium Iron TIBC % Saturation Ferritin Total Bilirubin AST ALT Alkaline Phosphatase Total Protein Albumin Globulin Albumin/Globulin Ratio C. difficile Ag & Toxin Critical Care Progress Note - Nutrition Nutrition: Nutrition Category Date Time Status NPO Diet [DIET] Diets 09/07/17 Dinner Active Assessment/Plan - Assessment and Plan (Free Text) Plan: PAtient seen and examiend with above resident. PAtient with h/o chronic respiratory failure; ventilator dependent -continue tube feeds -hypernatremia: continue free water (increase) -IV albumin -anemi: switch from lovenox t hepain SQ q12hrs -Tolerating CPAP 12/5 Fio2 40% -continue tube feeds -Patient remains hemodynamically stable fot LTAC -urinary retention resulting in garcia -left PICC line -continue to monitor -Above resident has documented my clinical findings and my management - Date & Time Date: 09/09/17 Time: 08:30"
[2017-09-09] MEDS: Enoxaparin 40 mg Syringe SC SCH (10:45)
[2017-09-09 10:58] LABS: % IRON SATURATION 8.92 (20-55)
[2017-09-09] MEDS: Vancomycin 1 gm/NS 200 ml 1 GM/200 ML BAG IVPB SCH (18:01)
[2017-09-09] MEDS ORDERED: Lactated Ringer's 500 ML IV ONE (18:04)
--- NOTE | 2017-09-09 18:08 | CP.PCM.PN ---
Subjective - Date & Time of Evaluation Date of Evaluation: 09/09/17 Time of Evaluation: 11:35 - Subjective Subjective: patient seen and examined Tolerating PEG feeding Status post tracheostomy and on CPAP Afebrile Objective - Vital Signs/Intake and Output Vital Signs (last 24 hours): Temp Pulse Resp BP Pulse Ox 98.3 F 92 H 34 H 97/53 L 99 09/09/17 16:00 09/09/17 17:29 09/09/17 17:29 09/09/17 17:29 09/09/17 17:29 Intake and Output: 09/09/17 09/09/17 06:59 18:59 Intake Total 970 1110 Output Total 700 343 Balance 270 767 - Medications Medications: Current Medications Acetaminophen (Tylenol 325mg Tab) 650 mg PO Q6 PRN PRN Reason: Fever >100.4 F Last Admin: 09/09/17 05:31 Dose: 650 mg Albuterol/Ipratropium (Duoneb 3 Mg/0.5 Mg (3 Ml) Ud) 3 ml INH RQ6 [facility] [place] Last Admin: 09/09/17 14:00 Dose: 3 ml Amantadine HCl (Symmetrel) 100 mg PO DAILY [facility] [place] Last Admin: 09/09/17 09:29 Dose: 100 mg Bisacodyl (Dulcolax) 10 mg CO ONCE PRN PRN Reason: consipation Carbamazepine (Tegretol) 100 mg PEG Q8 [facility] [place] Last Admin: 09/09/17 14:03 Dose: 100 mg Heparin Sodium (Porcine) (Heparin) 5,000 units SC Q12 [facility] Last Admin: 09/09/17 11:49 Dose: Not Given Metronidazole (Flagyl) 500 mg in 100 mls @ 100 mls/hr IVPB Q8 [facility] PRN Reason: Protocol Last Admin: 09/09/17 14:03 Dose: 100 mls/hr Vancomycin/Sodium Chloride (Vancomycin 1 Gm/Ns 200 Ml) 1 gm in 200 mls @ 133 mls/hr IVPB Q24H [facility] PRN Reason: Protocol Stop: 09/11/17 18:01 Last Admin: 09/09/17 18:01 Dose: 133 mls/hr Doxycycline Hyclate 100 mg/ (Sodium Chloride) 100 mls @ 100 mls/hr IVPB Q12H [facility] PRN Reason: Protocol Last Admin: 09/09/17 15:47 Dose: 100 mls/hr Lactated Ringer's (Lactated Ringer's) 500 mls @ 1,000 mls/hr IV .Q30M ONE Stop: 09/09/17 18:33 Pantoprazole Sodium (Protonix Susp) 40 mg PO DAILY [facility] [place] Last Admin: 09/09/17 09:26 Dose: 40 mg Rosuvastatin Calcium (Crestor) 5 mg PO HS [facility] [place] Last Admin: 09/08/17 21:05 Dose: 5 mg Valproate Sodium (Depakene Oral Soln) 250 mg PEG Q12 [facility] [place] Last Admin: 09/09/17 09:26 Dose: 250 mg - Labs Labs: 09/09/17 06:17 09/09/17 06:17 PT 22.0 SECONDS (9.7-12.2) H 09/07/17 06:08 INR 2.0 09/07/17 06:08 APTT 43 SECONDS (21-34) H 09/07/17 06:08 - Head Exam Head Exam: ATRAUMATIC, NORMOCEPHALIC - ENT Exam ENT Exam: Mucous Membranes Moist - Neck Exam Neck Exam: Normal Inspection - Respiratory Exam Respiratory Exam: Decreased Breath Sounds - Cardiovascular Exam Cardiovascular Exam: REGULAR RHYTHM - GI/Abdominal Exam GI & Abdominal Exam: Soft Assessment and Plan (1) Respiratory failure Assessment & Plan: Continue weaning Transfer to LTAC Continue IV antibiotics Status: Acute (2) Anemia Status: Acute (3) Pneumonia Status: Acute
--- NOTE | 2017-09-09 19:53 | CP.PCM.PN ---
Subjective - Date & Time of Evaluation Date of Evaluation: 09/09/17 Time of Evaluation: 01:40 - Subjective Subjective: dictated Objective - Vital Signs/Intake and Output Vital Signs (last 24 hours): Temp Pulse Resp BP Pulse Ox 98.3 F 94 H 17 89/46 L 98 09/09/17 16:00 09/09/17 19:30 09/09/17 19:30 09/09/17 19:30 09/09/17 19:30 Intake and Output: 09/09/17 09/10/17 18:59 06:59 Intake Total 1283 107 Output Total 343 Balance 940 107 - Medications Medications: Current Medications Acetaminophen (Tylenol 325mg Tab) 650 mg PO Q6 PRN PRN Reason: Fever >100.4 F Last Admin: 09/09/17 05:31 Dose: 650 mg Albuterol/Ipratropium (Duoneb 3 Mg/0.5 Mg (3 Ml) Ud) 3 ml INH RQ6 [facility] Last Admin: 09/09/17 19:25 Dose: 3 ml Amantadine HCl (Symmetrel) 100 mg PO DAILY [facility] Last Admin: 09/09/17 09:29 Dose: 100 mg Bisacodyl (Dulcolax) 10 mg [place] ONCE PRN PRN Reason: consipation Carbamazepine (Tegretol) 100 mg PEG Q8 [facility] Last Admin: 09/09/17 14:03 Dose: 100 mg Heparin Sodium (Porcine) (Heparin) 5,000 units SC Q12 [facility] Last Admin: 09/09/17 11:49 Dose: Not Given Metronidazole (Flagyl) 500 mg in 100 mls @ 100 mls/hr IVPB Q8 [facility] PRN Reason: Protocol Last Admin: 09/09/17 14:03 Dose: 100 mls/hr Vancomycin/Sodium Chloride (Vancomycin 1 Gm/Ns 200 Ml) 1 gm in 200 mls @ 133 mls/hr IVPB Q24H [facility] PRN Reason: Protocol Stop: 09/11/17 18:01 Last Admin: 09/09/17 18:01 Dose: 133 mls/hr Doxycycline Hyclate 100 mg/ (Sodium Chloride) 100 mls @ 100 mls/hr IVPB Q12H [facility] PRN Reason: Protocol Last Admin: 09/09/17 15:47 Dose: 100 mls/hr Pantoprazole Sodium (Protonix Susp) 40 mg PO DAILY [facility] Last Admin: 09/09/17 09:26 Dose: 40 mg Rosuvastatin Calcium (Crestor) 5 mg PO HS [facility] Last Admin: 09/08/17 21:05 Dose: 5 mg Valproate Sodium (Depakene Oral Soln) 250 mg PEG Q12 [facility] Last Admin: 09/09/17 09:26 Dose: 250 mg - Labs Labs: 09/09/17 06:17 09/09/17 06:17 PT 22.0 SECONDS (9.7-12.2) H 09/07/17 06:08 INR 2.0 09/07/17 06:08 APTT 43 SECONDS (21-34) H 09/07/17 06:08
[2017-09-10] MEDS: Albuterol-Ipratrop 3 mg / 0.5 (3 ml) UD INH SCH ×4 (01:21→19:28)
--- NOTE | 2017-09-10 01:22 | PN ---
DATE: 09/09/2017 SUBJECTIVE: He almost is lethargic with a trach vent still present. PHYSICAL EXAMINATION: VITAL SIGNS: He had a temperature of 100.9 this morning at 5:31, since then, he has been afebrile. Blood pressure still remains on the lower side. LUNGS: Have coarse breath sounds on the right side with occasional wheeze. Left side appears more clear. HEART: S1 and S2 are tachycardic. ABDOMEN: Soft. Nontender. EXTREMITIES: He has a right BKA and left heel has a necrotic ulcer and multiple areas of pressure decubiti. LABORATORY DATA: Labs are noted. Labs show white count is 8.5 today, hemoglobin 7.8, hematocrit 23.4, platelet count is 202. He also has a rectal tube at this time. Sodium still remains with hypernatremia, sodium is 151, potassium 3.7, chloride of 120, CO2 is 17, creatinine is 0.8. ASSESSMENT AND PLAN: So, he did have some fever yesterday. His TB test was indeterminate and x-ray shows that right upper cystic opacity, it is probably a bulla or I would think we have done galactomannan test and antigen and Histoplasma and mostly is negative. So, this TB test, AFBs were negative, Aspergillus antigen was not detected. The patient is at this time to continue on the antibiotics and will follow, if he remains afebrile, he will need to continue them for 7 to 10 days, also Flagyl can be changed to oral. He also has this left heel unstageable ulcer, decubiti, which may need further attention and may be a cause of fever. Bladimir Muñoz MD
[2017-09-10] MEDS: carBAMazepine Chew Tab 100 MG Chew Tab PEG SCH ×3 (05:29→21:10)
[2017-09-10] MEDS: metroNIDAZOLE IV 500 mg/100 ml 500 MG/100 ML BAG IVPB SCH (05:29)
[2017-09-10 06:30] LABS: BASO % 0.5 % (0.0-2.0); EOS % 0.5 % (0.0-4.0); LYMPH # 1.7 K/uL (1.0-4.3); LYMPH % 19.3 % (20.0-40.0); MEAN CELL VOLUME 84.9 fL (80.0-94.0); MEAN CORPUSCULAR HEMOGLOBIN 27.8 pg (27.0-31.0); MEAN CORPUSCULAR HGB CONC 32.8 g/dL (33.0-37.0); MEAN PLATELET VOLUME 9.5 fL (7.2-11.7); MONO # 1.8 K/uL (0.0-0.8); MONO % 19.8 % (0.0-10.0); NEUT # 5.3 K/uL (1.8-7.0); NEUT % 59.9 % (50.0-75.0); NRBC % 0.1 % (0.0-2.0); RBC 2.87 Mil/uL (4.40-5.90); RED CELL DISTRIBUTION WIDTH 17.3 % (11.5-14.5); WHITE BLOOD COUNT 8.9 K/uL (4.8-10.8)
[2017-09-10 06:46] LABS: ALB/GLOB RATIO 0.5 (1.0-2.1); AST/SGOT 30 U/L (17-59); BLOOD UREA NITROGEN 17 mg/dL (9-20); CALCIUM 6.7 mg/dl (8.6-10.4); GFR AFRICAN-AMERICAN > 60; GFR NON-AFRICAN AMERICAN > 60
--- NOTE | 2017-09-10 06:46 | CP.PCM.PN ---
Subjective - Date & Time of Evaluation Date of Evaluation: 09/10/17 Time of Evaluation: 06:46 - Subjective Subjective: Mr. Cordero was seen and examined at the bedside in ICU. He remains on mechanical ventilator on PRVC mode via trach. Pupils sluggishly reactive 3 mm on the left and 2 mm on the right, responsive to pain stimuli, and opens eyes spontaneously.His bilateral upper extremities are edematous with a dependent periorbital edema on his right side.There was no untoward events overnight. Objective - Vital Signs/Intake and Output Vital Signs (last 24 hours): Temp Pulse Resp BP Pulse Ox 98.4 F 101 H 36 H 95/59 L 98 09/10/17 04:00 09/10/17 06:00 09/10/17 06:00 09/10/17 05:59 09/10/17 06:00 Intake and Output: 09/09/17 09/10/17 18:59 06:59 Intake Total 1283 1687 Output Total 343 630 Balance 940 1057 - Medications Medications: Current Medications Acetaminophen (Tylenol 325mg Tab) 650 mg PO Q6 PRN PRN Reason: Fever >100.4 F Last Admin: 09/09/17 05:31 Dose: 650 mg Albuterol/Ipratropium (Duoneb 3 Mg/0.5 Mg (3 Ml) Ud) 3 ml INH RQ6 [facility] Last Admin: 09/10/17 01:21 Dose: 3 ml Amantadine HCl (Symmetrel) 100 mg PO DAILY [facility] Last Admin: 09/09/17 09:29 Dose: 100 mg Bisacodyl (Dulcolax) 10 mg [place] ONCE PRN PRN Reason: consipation Carbamazepine (Tegretol) 100 mg PEG Q8 [facility] Last Admin: 09/10/17 05:29 Dose: 100 mg Heparin Sodium (Porcine) (Heparin) 5,000 units SC Q12 [facility] Last Admin: 09/09/17 21:41 Dose: 5,000 units Metronidazole (Flagyl) 500 mg in 100 mls @ 100 mls/hr IVPB Q8 [facility] PRN Reason: Protocol Last Admin: 09/10/17 05:29 Dose: 100 mls/hr Vancomycin/Sodium Chloride (Vancomycin 1 Gm/Ns 200 Ml) 1 gm in 200 mls @ 133 mls/hr IVPB Q24H [facility] PRN Reason: Protocol Stop: 09/11/17 18:01 Last Admin: 09/09/17 18:01 Dose: 133 mls/hr Doxycycline Hyclate 100 mg/ (Sodium Chloride) 100 mls @ 100 mls/hr IVPB Q12H [facility] PRN Reason: Protocol Last Admin: 09/10/17 03:26 Dose: 100 mls/hr Pantoprazole Sodium (Protonix Susp) 40 mg PO DAILY [facility] Last Admin: 09/09/17 09:26 Dose: 40 mg Rosuvastatin Calcium (Crestor) 5 mg PO HS [facility] Last Admin: 09/09/17 21:41 Dose: 5 mg Valproate Sodium (Depakene Oral Soln) 250 mg PEG Q12 [facility] Last Admin: 09/09/17 21:41 Dose: 250 mg - Labs Labs: 09/10/17 06:12 09/09/17 06:17 PT 22.0 SECONDS (9.7-12.2) H 09/07/17 06:08 INR 2.0 09/07/17 06:08 APTT 43 SECONDS (21-34) H 09/07/17 06:08 - Constitutional Appears: No Acute Distress - Head Exam Head Exam: NORMAL INSPECTION - Neurological Exam Neurological Exam: Awake Neuro motor strength exam: Left Upper Extremity: 3, Right Upper Extremity: 3, Left Lower Extremity: 3, Right Lower Extremity: 2/1 (right AKA) Additional comments: Neurological unchanged from previous examination. Assessment and Plan (1) Toxic metabolic encephalopathy Assessment & Plan: Case discussed with Dr. Whitley, continue all current medical regimen. Pending depakote and tegretol levels.Recommend head of elevated at least 30 degrees, hydration, treat any underlying electrolyte abnormalities. Status: Acute
[2017-09-10 06:47] LABS: ALT/SGPT < 6 U/L (21-72)
[2017-09-10 07:14] LABS: CARBAMAZEPINE 11.8 ug/mL (4.0-12.0)
[2017-09-10 07:16] LABS: VALPROIC ACID 31.1 ug/mL (50.0-100.0)
--- NOTE | 2017-09-10 08:19 | RAD ---
Chest x-ray single frontal view History: Follow-up. Comparison: 09/09/2017 Findings: Right postsurgical volume loss, not significantly changed. Right upper lobe pleural-parenchymal opacity with coalescenct cystic changes, not significantly changed. Small bilateral pleural effusions. Bibasilar inferolateral pleural thickening and consolidation. Rightward mediastinal shift. This limits evaluation of assessment of the cardiovascular structures. Right rib postsurgical changes with similar-appearing hardware. Lines and tubes stable position. Deformity of the right proximal humerus. Impression: No significant interval change.
--- NOTE | 2017-09-10 09:34 | CP.PCM.PN ---
Subjective - Date & Time of Evaluation Date of Evaluation: 09/09/17 Time of Evaluation: 18:00 - Subjective Subjective: pt is seen and evaluated at bedside, is on medical management Objective - Vital Signs/Intake and Output Vital Signs (last 24 hours): Temp Pulse Resp BP Pulse Ox 101.1 F H 100 H 20 88/49 L 100 09/10/17 08:00 09/10/17 08:02 09/10/17 08:02 09/10/17 08:03 09/10/17 08:02 Intake and Output: 09/10/17 09/10/17 06:59 18:59 Intake Total 1687 280 Output Total 630 42 Balance 1057 238 - Medications Medications: Current Medications Acetaminophen (Tylenol 325mg Tab) 650 mg PO Q6 PRN PRN Reason: Fever >100.4 F Last Admin: 09/10/17 07:44 Dose: 650 mg Albuterol/Ipratropium (Duoneb 3 Mg/0.5 Mg (3 Ml) Ud) 3 ml INH RQ6 [facility] Last Admin: 09/10/17 07:49 Dose: 3 ml Amantadine HCl (Symmetrel) 100 mg PO DAILY [facility] Last Admin: 09/09/17 09:29 Dose: 100 mg Ascorbic Acid (Vitamin C 500 Mg Tab) 500 mg PO DAILY [facility] Bisacodyl (Dulcolax) 10 mg [place] ONCE PRN PRN Reason: consipation Carbamazepine (Tegretol) 100 mg PEG Q8 [facility] Last Admin: 09/10/17 05:29 Dose: 100 mg Heparin Sodium (Porcine) (Heparin) 5,000 units SC Q12 [facility] Last Admin: 09/09/17 21:41 Dose: 5,000 units Metronidazole (Flagyl) 500 mg in 100 mls @ 100 mls/hr IVPB Q8 [facility] PRN Reason: Protocol Last Admin: 09/10/17 05:29 Dose: 100 mls/hr Vancomycin/Sodium Chloride (Vancomycin 1 Gm/Ns 200 Ml) 1 gm in 200 mls @ 133 mls/hr IVPB Q24H [facility] PRN Reason: Protocol Stop: 09/11/17 18:01 Last Admin: 09/09/17 18:01 Dose: 133 mls/hr Doxycycline Hyclate 100 mg/ (Sodium Chloride) 100 mls @ 100 mls/hr IVPB Q12H [facility] PRN Reason: Protocol Last Admin: 09/10/17 03:26 Dose: 100 mls/hr Multivitamins/Vitamin C (Multi-Delyn Liquid) 5 ml PO DAILY [facility] Pantoprazole Sodium (Protonix Susp) 40 mg PO DAILY [facility] Last Admin: 09/09/17 09:26 Dose: 40 mg Rosuvastatin Calcium (Crestor) 5 mg PO HS [facility] Last Admin: 09/09/17 21:41 Dose: 5 mg Valproate Sodium (Depakene Oral Soln) 250 mg PEG Q12 [facility] Last Admin: 09/09/17 21:41 Dose: 250 mg Zinc Sulfate (Zinc Sulfate 220 Mg Cap) 220 mg PO DAILY [facility] - Labs Labs: 09/10/17 06:12 09/10/17 06:14 PT 22.0 SECONDS (9.7-12.2) H 09/07/17 06:08 INR 2.0 09/07/17 06:08 APTT 43 SECONDS (21-34) H 09/07/17 06:08 Assessment and Plan (1) Sepsis Status: Acute (2) Fever Status: Acute (3) Seizure disorder Status: Acute (4) COPD (chronic obstructive pulmonary disease) Status: Chronic (5) PVD (peripheral vascular disease) Status: Chronic (6) Respiratory failure Status: Acute (7) Status post tracheostomy Status: Acute (8) Pneumonia Status: Acute
[2017-09-10] MEDS: Valproic Acid 250 mg/5 ml UD Cup PEG SCH ×2 (09:56→21:10)
[2017-09-10] MEDS: Amantadine 50 mg/5 ml Syrup (473 ml) PO SCH (09:57)
[2017-09-10] MEDS: Multiple Vitamins Oral Solution PO SCH (09:57)
[2017-09-10] MEDS: Pantoprazole 40 mg Susp UD PO SCH (09:57)
--- NOTE | 2017-09-10 09:57 | CP.CCUPN ---
"<Tita Xie - Last Filed: 09/10/17 09:59> CCU Subjective - Physician Review Subjective (Free Text): Patient was seen and examined at bedside. Remains on PRVC continued Rate 18, FiO2 40%, PEEP 5. Patient remains sugglish, responds to pain. ROS unattainable. S/P tracheostomy 09/07/17. Plan for LTAC - pending case management 09/10/17 09:47 Continuing CPAP trials. Still febrile. 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 CCU Objective - Vital Signs / Intake & Output Vital Signs (Last 4 hours): Vital Signs Temp Pulse Resp BP Pulse Ox 09/10/17 08:03 88/49 L 09/10/17 08:02 100 H 20 100 09/10/17 08:00 101.1 F H 09/10/17 07:44 101.1 F H 09/10/17 07:39 103 H 36 H 96/53 L 98 09/10/17 06:59 99 H 36 H 99/56 L 97 09/10/17 06:00 101 H 36 H 98 09/10/17 05:59 95/59 L Intake and Output (Last 8hrs): Intake & Output 09/09/17 09/10/17 09/10/17 22:59 06:59 14:59 Intake Total 1220 860 280 Output Total 139 525 42 Balance 1081 335 238 Weight 135 lb Intake: Intake, IV Amount 900 100 Left Medial Port PICC 900 100 Tube Feeding 320 360 280 Albumin 200 Other 200 Output: Urine 139 325 42 Urethral (Brown) 139 325 42 Stool 200 - Physical Exam Head: Positive for: Atraumatic, Normocephalic Pupils: Positive for: Sluggish Mouth: Positive for: Dry. Negative for: Moist Mucous Membranes Neck: Positive for: Other (tracheostomy ) Respiratory/Chest: Positive for: Clear to Auscultation, Decreased Breath Sounds (RUL ), Other (Intubated) Cardiovascular: Positive for: Normal S1, S2. Negative for: Tachycardic Abdomen: Positive for: Normal Bowel Sounds. Negative for: Distention Neurological: Negative for: GCS=15 (10T) Skin: Positive for: Warm, Dry, Normal Color. Negative for: Rashes Psychiatric: Negative for: Alert - Medications Active Medications: Active Medications Generic Name Dose Route Start Last Admin Trade Name Freq PRN Reason Stop Dose Admin Acetaminophen 650 mg 09/08/17 14:59 09/10/17 07:44 Tylenol 325mg Tab PO 650 mg Q6 PRN Administration Fever >100.4 F Albuterol/Ipratropium 3 ml 08/28/17 08:00 09/10/17 07:49 Duoneb 3 Mg/0.5 Mg (3 Ml) Ud INH 3 ml RQ6 AMY Administration Amantadine HCl 100 mg 09/05/17 10:00 09/09/17 09:29 Symmetrel PO 100 mg DAILY AMY Administration Ascorbic Acid 500 mg 09/10/17 10:00 Vitamin C 500 Mg Tab PO DAILY AMY Bisacodyl 10 mg 08/29/17 08:30 Dulcolax AL ONCE PRN consipation Carbamazepine 100 mg 08/24/17 22:00 09/10/17 05:29 Tegretol PEG 100 mg Q8 AMY Administration Heparin Sodium (Porcine) 5,000 units 09/09/17 11:00 09/09/17 21:41 Heparin SC 5,000 units Q12 AMY Administration Metronidazole 500 mg in 100 mls @ 100 mls/hr 08/31/17 14:00 09/10/17 05:29 Flagyl IVPB 100 mls/hr Q8 AMY Administration Protocol Vancomycin/Sodium Chloride 1 gm in 200 mls @ 133 mls/hr 09/06/17 18:00 18:01 Vancomycin 1 Gm/Ns 200 Ml IVPB 09/11/17 18:01 133 mls/hr Q24H AMY Administration Protocol Doxycycline Hyclate 100 mg/ 100 mls @ 100 mls/hr 09/08/17 15:00 09/10/17 03: 26 Sodium Chloride IVPB 100 mls/hr Q12H AMY Administration Protocol Multivitamins/Vitamin C 5 ml 09/10/17 10:00 Multi-Delyn Liquid PO DAILY AMY Pantoprazole Sodium 40 mg 08/29/17 10:00 09/09/17 09:26 Protonix Susp PO 40 mg DAILY AMY Administration Rosuvastatin Calcium 5 mg 08/24/17 22:00 09/09/17 21:41 Crestor PO 5 mg HS AMY Administration Valproate Sodium 250 mg 09/02/17 22:00 09/09/17 21:41 Depakene Oral Soln PEG 250 mg Q12 AMY Administration Zinc Sulfate 220 mg 09/10/17 10:00 Zinc Sulfate 220 Mg Cap PO DAILY AMY - Patient Studies Lab Studies: Microbiology Studies 09/06/17 14:00 Blood Culture - Preliminary Blood-Thru Central Line NO GROWTH AFTER 3 DAYS 09/06/17 14:00 Blood Culture - Preliminary Blood-Thru Central Line NO GROWTH AFTER 3 DAYS 09/08/17 12:57 Blood Culture - Preliminary Blood-Venous NO GROWTH AFTER 24 HOURS 09/08/17 12:57 Blood Culture - Preliminary Blood-Venous NO GROWTH AFTER 24 HOURS 09/08/17 12:57 Urine Culture - Final Urine,Brown No Growth (<1,000 CFU/ML) Lab Studies 09/10/17 09/10/17 09/10/17 Range/Units 06:16 06:15 06:14 WBC (4.8-10.8) K/uL RBC (4.40-5.90) Mil/uL Hgb (12.0-18.0) g/dL Hct (35.0-51.0) % MCV (80.0-94.0) fL MCH (27.0-31.0) pg MCHC (33.0-37.0) g/dL RDW (11.5-14.5) % Plt Count (130-400) K/uL MPV (7.2-11.7) fL Neut % (Auto) (50.0-75.0) % Lymph % (Auto) (20.0-40.0) % [place] % (Auto) (0.0-10.0) % Eos % (Auto) (0.0-4.0) % Baso % (Auto) (0.0-2.0) % Neut # (Auto) (1.8-7.0) K/uL Lymph # (Auto) (1.0-4.3) K/uL [place] # (Auto) (0.0-0.8) K/uL Eos # (Auto) (0.0-0.7) K/uL Baso # (Auto) (0.0-0.2) K/uL Sodium 148 (132-148) mmol/L Potassium 3.8 (3.6-5.2) mmol/L Chloride 119 H (98-107) mmol/L Carbon Dioxide 16 L (22-30) mmol/L Anion Gap 17 (10-20) BUN 17 (9-20) mg/dL Creatinine 0.8 (0.8-1.5) mg/dL Est GFR ( Amer) > 60 Est GFR (Non-Af Amer) > 60 POC Glucose (mg/dL) 82 (65-110) mg/dL Random Glucose 66 L (75-110) mg/dL Calcium 6.7 L (8.6-10.4) mg/dl Phosphorus 3.4 (2.5-4.5) mg/dL Magnesium 1.9 (1.6-2.3) mg/dL Iron (49-181) ug/dL TIBC (250-450) ug/dL % Saturation (20-55) Ferritin ng/mL Total Bilirubin 4.7 H (0.2-1.3) mg/dL AST 30 (17-59) U/L ALT < 6 L (21-72) U/L Alkaline Phosphatase 61 (38-126) U/L Total Protein 6.3 (6.3-8.3) g/dL Albumin 2.0 L (3.5-5.0) g/dL Globulin 4.3 H (2.2-3.9) gm/dL Albumin/Globulin Ratio 0.5 L (1.0-2.1) Valproic Acid 31.1 L (50.0-100.0) ug/mL Carbamazepine 11.8 (4.0-12.0) ug/mL 09/10/17 09/09/17 09/09/17 Range/Units 06:12 23:47 18:18 WBC 8.9 (4.8-10.8) K/uL RBC 2.87 L (4.40-5.90) Mil/uL Hgb 8.0 L (12.0-18.0) g/dL Hct 24.4 L (35.0-51.0) % MCV 84.9 (80.0-94.0) fL MCH 27.8 (27.0-31.0) pg MCHC 32.8 L (33.0-37.0) g/dL RDW 17.3 H (11.5-14.5) % Plt Count 220 (130-400) K/uL MPV 9.5 (7.2-11.7) fL Neut % (Auto) 59.9 (50.0-75.0) % Lymph % (Auto) 19.3 L (20.0-40.0) % [place] % (Auto) 19.8 H (0.0-10.0) % Eos % (Auto) 0.5 (0.0-4.0) % Baso % (Auto) 0.5 (0.0-2.0) % Neut # (Auto) 5.3 (1.8-7.0) K/uL Lymph # (Auto) 1.7 (1.0-4.3) K/uL [place] # (Auto) 1.8 H (0.0-0.8) K/uL Eos # (Auto) 0.0 (0.0-0.7) K/uL Baso # (Auto) 0.0 (0.0-0.2) K/uL Sodium (132-148) mmol/L Potassium (3.6-5.2) mmol/L Chloride (98-107) mmol/L Carbon Dioxide (22-30) mmol/L Anion Gap (10-20) BUN (9-20) mg/dL Creatinine (0.8-1.5) mg/dL Est GFR ( Amer) Est GFR (Non-Af Amer) POC Glucose (mg/dL) 80 95 (65-110) mg/dL Random Glucose (75-110) mg/dL Calcium (8.6-10.4) mg/dl Phosphorus (2.5-4.5) mg/dL Magnesium (1.6-2.3) mg/dL Iron (49-181) ug/dL TIBC (250-450) ug/dL % Saturation (20-55) Ferritin ng/mL Total Bilirubin (0.2-1.3) mg/dL AST (17-59) U/L ALT (21-72) U/L Alkaline Phosphatase (38-126) U/L Total Protein (6.3-8.3) g/dL Albumin (3.5-5.0) g/dL Globulin (2.2-3.9) gm/dL Albumin/Globulin Ratio (1.0-2.1) Valproic Acid (50.0-100.0) ug/mL Carbamazepine (4.0-12.0) ug/mL 09/09/17 09/09/17 09/09/17 Range/Units 11:29 09:52 09:52 WBC (4.8-10.8) K/uL RBC (4.40-5.90) Mil/uL Hgb (12.0-18.0) g/dL Hct (35.0-51.0) % MCV (80.0-94.0) fL MCH (27.0-31.0) pg MCHC (33.0-37.0) g/dL RDW (11.5-14.5) % Plt Count (130-400) K/uL MPV (7.2-11.7) fL Neut % (Auto) (50.0-75.0) % Lymph % (Auto) (20.0-40.0) % [place] % (Auto) (0.0-10.0) % Eos % (Auto) (0.0-4.0) % Baso % (Auto) (0.0-2.0) % Neut # (Auto) (1.8-7.0) K/uL Lymph # (Auto) (1.0-4.3) K/uL [place] # (Auto) (0.0-0.8) K/uL Eos # (Auto) (0.0-0.7) K/uL Baso # (Auto) (0.0-0.2) K/uL Sodium (132-148) mmol/L Potassium (3.6-5.2) mmol/L Chloride (98-107) mmol/L Carbon Dioxide (22-30) mmol/L Anion Gap (10-20) BUN (9-20) mg/dL Creatinine (0.8-1.5) mg/dL Est GFR ( Amer) Est GFR (Non-Af Amer) POC Glucose (mg/dL) 92 (65-110) mg/dL Random Glucose (75-110) mg/dL Calcium (8.6-10.4) mg/dl Phosphorus (2.5-4.5) mg/dL Magnesium (1.6-2.3) mg/dL Iron 10 L (49-181) ug/dL TIBC 112 L (250-450) ug/dL % Saturation 8.92 L (20-55) Ferritin 472.0 ng/mL Total Bilirubin (0.2-1.3) mg/dL AST (17-59) U/L ALT (21-72) U/L Alkaline Phosphatase (38-126) U/L Total Protein (6.3-8.3) g/dL Albumin (3.5-5.0) g/dL Globulin (2.2-3.9) gm/dL Albumin/Globulin Ratio (1.0-2.1) Valproic Acid (50.0-100.0) ug/mL Carbamazepine (4.0-12.0) ug/mL Laboratory Results - last 24 hr 09/09/17 09/09/17 09/09/17 09:52 09:52 11:29 WBC RBC Hgb Hct MCV MCH MCHC RDW Plt Count MPV Neut % (Auto) Lymph % (Auto) [place] % (Auto) Eos % (Auto) Baso % (Auto) Neut # (Auto) Lymph # (Auto) [place] # (Auto) Eos # (Auto) Baso # (Auto) Sodium Potassium Chloride Carbon Dioxide Anion Gap BUN Creatinine Est GFR ( Amer) Est GFR (Non-Af Amer) POC Glucose (mg/dL) 92 Random Glucose Calcium Phosphorus Magnesium Iron 10 L TIBC 112 L % Saturation 8.92 L Ferritin 472.0 Total Bilirubin AST ALT Alkaline Phosphatase Total Protein Albumin Globulin Albumin/Globulin Ratio Valproic Acid Carbamazepine 09/09/17 09/09/17 09/10/17 18:18 23:47 06:12 WBC 8.9 RBC 2.87 L Hgb 8.0 L Hct 24.4 L MCV 84.9 MCH 27.8 MCHC 32.8 L RDW 17.3 H Plt Count 220 MPV 9.5 Neut % (Auto) 59.9 Lymph % (Auto) 19.3 L [place] % (Auto) 19.8 H Eos % (Auto) 0.5 Baso % (Auto) 0.5 Neut # (Auto) 5.3 Lymph # (Auto) 1.7 [place] # (Auto) 1.8 H Eos # (Auto) 0.0 Baso # (Auto) 0.0 Sodium Potassium Chloride Carbon Dioxide Anion Gap BUN Creatinine Est GFR ( Amer) Est GFR (Non-Af Amer) POC Glucose (mg/dL) 95 80 Random Glucose Calcium Phosphorus Magnesium Iron TIBC % Saturation Ferritin Total Bilirubin AST ALT Alkaline Phosphatase Total Protein Albumin Globulin Albumin/Globulin Ratio Valproic Acid Carbamazepine 09/10/17 09/10/17 09/10/17 06:14 06:15 06:16 WBC RBC Hgb Hct MCV MCH MCHC RDW Plt Count MPV Neut % (Auto) Lymph % (Auto) [place] % (Auto) Eos % (Auto) Baso % (Auto) Neut # (Auto) Lymph # (Auto) [place] # (Auto) Eos # (Auto) Baso # (Auto) Sodium 148 Potassium 3.8 Chloride 119 H Carbon Dioxide 16 L Anion Gap 17 BUN 17 Creatinine 0.8 Est GFR ( Amer) > 60 Est GFR (Non-Af Amer) > 60 POC Glucose (mg/dL) 82 Random Glucose 66 L Calcium 6.7 L Phosphorus 3.4 Magnesium 1.9 Iron TIBC % Saturation Ferritin Total Bilirubin 4.7 H AST 30 ALT < 6 L Alkaline Phosphatase 61 Total Protein 6.3 Albumin 2.0 L Globulin 4.3 H Albumin/Globulin Ratio 0.5 L Valproic Acid 31.1 L Carbamazepine 11.8 Fingerstick Blood Sugar Results: 82 Critical Care Progress Note - Nutrition Nutrition: Nutrition Category Date Time Status NPO Diet [DIET] Diets 09/07/17 Dinner Active Assessment/Plan - Assessment and Plan (Free Text) Assessment: 77 year old male with PMHx of Arthritis, Asthma, COPD, Severe Dementia, HTN, Seizures, TIA with PEG, and Right AKA presents from [facility] due to fever. Admitted to ICU, intubated due to respiratory failure. Code Sepsis 2/2 Mycoplasma Pneumonia 08/27/17, Entercolitis. S/P bronchoscopy 09/03/17. S/P Tracheostomy 09/07/17. Pending LTAC placement. Plan: Neuro: GCS: 10T Sedation: None A: Severe Dementia, Hx of Seizure Home Carbamazepine 100mg Q8 | Home Valproic Acid 250mg PEG QID Changed to Q12H Amantadine 100mg PO Daily per Neuro Cardio: A: HTN, Hx of TIA, HLD Crestor 5mg PO HS Pulm: A: Hypoxic Res. Failure, Asthma, COPD, Mycoplasma Pneumonia + 08/27/17 CXR (Admission): Stable postsurgical changes in the right lung with low lung volume and shift of mediastinal to the right. No acute findings. CXR (09/03): No significant interval change in right upper lobe cystic changes/ bulla and right pleural effusion. Stable position of endotracheal tube. S/P bronchoscopy 09/03/17 - bronchial washings - negative for any growth S/P Tracheostomy 09/07/[address] Celestine Monae Scheduled Endo A: Hypoglycemia (Stable) GI: A: Enterocolitis CT chest Abd/Pelvis (08/27): Enterocolits; ascities;mild bladder wall thickening with air in the bladder, iatrogenic versus infectious. -Flagyl started 08/31/17 A: Elevated T. Bili - Continue to monitor, unremarkable on CT Scan Renal: A: Hypocalcemia, corrected calcium - within normal limits, Hypokalemia Replace electrolytes PRN Heme/Onc: A: Normocytic Anemia HgB stable at new baseline of low 8s Transfused 1 unit throughout admission Transfused 2nd unit 09/07/17 Stool Occult Blood - NEGATIVE ID A: Code Sepsis, Leukocytosis (Resolved) ID on Consult, Recs Appreciated - Dr. Muñoz Cultures (08/24, 08/31) Blood - NEGATIVE to date | Urine - NEGATIVE to date | Sputum - Normal Oral Kim | MRSA - NEGATIVE Wound Cultures - Coagulase Neg Staph, Likely normal Skin Kim Mycoplasma Pneumonia IgM - positive, Patient has chronic Mycoplasma IgM. This was positive on 08/03/17 AFB Sputum Culture x 2 negative, Aspergillus AB and Antigen, H. Galactomannan Antigen, Histoplasma AB,- ALL NEGATIVE, Quant Gold - PENDING Antibiotics: Stopped - Moxifloxacin 400mg Q24H (09/01-09/08). stopped Micafungin 100mg Q24H started on 09/01 - Switched to doxy 100 Q12 09/08/17- DC on 09/10/17 and continued Flagyl 500mg Q8H started 08/31 (changed to PO through peg), continued Vanco 1 gram Q24 09/06 - spiked 101F 09/05/17 at 12:30pm - was not suh cultured, low grade fever 100.6F on 09/08, 100.9 5:30am 09/09 - pending repeat cultures 09/07 and 09/08 A: Left Foot ??Osteo - Continued to be febrile 101.1 8am 09/10/17 - Abx regimen changed to Meropenem 500mg IVP Q8H, Continued Vanco 1 gram Q24, flagyl 500mg PEG TID - Added vitamin C and zinc - F/U wound culture Integumentary A: Left Lower ext wounds Wound Care Prophylaxis Protonix Lovenox (Held) due to tracheostomy 09/07/17 Diet: Tube Feeding - Jevity 1.5 Lines: Right IJ Central Line removed, placed Left PICC line 09/06/17, consent retrieved from Elizabet legal guardian [phone] Disposition: Pending placement in LTAC [facility] with ICU Attending - Dr. Leanne Bain, Tita Xie, PGY-1 <Juliann Bain M - Last Filed: 09/10/17 14:46> CCU Objective - Vital Signs / Intake & Output Vital Signs (Last 4 hours): Vital Signs Pulse Resp BP Pulse Ox 09/10/17 13:03 96 H 35 H 84/51 L 97 09/10/17 12:05 99 H 34 H 81/46 L 97 09/10/17 11:03 103 H 40 H 82/47 L Intake and Output (Last 8hrs): Intake & Output 09/09/17 09/10/17 09/10/17 22:59 06:59 14:59 Intake Total 1220 860 400 Output Total 139 525 97 Balance 1081 335 303 Weight 135 lb Intake: Intake, IV Amount 900 100 Left Medial Port PICC 900 100 Tube Feeding 320 360 400 Albumin 200 Other 200 Output: Urine 139 325 97 Urethral (Brown) 139 325 97 Stool 200 - Medications Active Medications: Active Medications Generic Name Dose Route Start Last Admin Trade Name Freq PRN Reason Stop Dose Admin Acetaminophen 650 mg 09/08/17 14:59 09/10/17 07:44 Tylenol 325mg Tab PO 650 mg Q6 PRN Administration Fever >100.4 F Albuterol/Ipratropium 3 ml 08/28/17 08:00 09/10/17 13:18 Duoneb 3 Mg/0.5 Mg (3 Ml) Ud INH 3 ml RQ6 AMY Administration Amantadine HCl 100 mg 09/05/17 10:00 09/10/17 09:57 Symmetrel PO 100 mg DAILY AMY Administration Ascorbic Acid 500 mg 09/10/17 10:00 09/10/17 09:58 Vitamin C 500 Mg Tab PO 500 mg DAILY AMY Administration Bisacodyl 10 mg 08/29/17 08:30 Dulcolax AL ONCE PRN consipation Carbamazepine 100 mg 08/24/17 22:00 09/10/17 05:29 Tegretol PEG 100 mg Q8 AMY Administration Heparin Sodium (Porcine) 5,000 units 09/09/17 11:00 09/10/17 09:56 Heparin SC 5,000 units Q12 AMY Administration Vancomycin/Sodium Chloride 1 gm in 200 mls @ 133 mls/hr 09/06/17 18:00 18:01 Vancomycin 1 Gm/Ns 200 Ml IVPB 09/11/17 18:01 133 mls/hr Q24H AMY Administration Protocol Meropenem 500 mg/ Sodium 100 mls @ 100 mls/hr 09/10/17 11:00 09/10/17 10:50 Chloride IVPB 100 mls/hr Q8H AMY Administration Protocol Metronidazole 500 mg 09/10/17 14:00 Flagyl PEG TID AMY Protocol Multivitamins/Vitamin C 5 ml 09/10/17 10:00 09/10/17 09:57 Multi-Delyn Liquid PO 5 ml DAILY AMY Administration Pantoprazole Sodium 40 mg 08/29/17 10:00 09/10/17 09:57 Protonix Susp PO 40 mg DAILY AMY Administration Rosuvastatin Calcium 5 mg 08/24/17 22:00 09/09/17 21:41 Crestor PO 5 mg HS AMY Administration Valproate Sodium 250 mg 09/02/17 22:00 09/10/17 09:56 Depakene Oral Soln PEG 250 mg Q12 AMY Administration Zinc Sulfate 220 mg 09/10/17 10:00 09/10/17 09:58 Zinc Sulfate 220 Mg Cap PO 220 mg DAILY AMY Administration - Patient Studies Lab Studies: Microbiology Studies 09/08/17 12:57 Blood Culture - Preliminary Blood-Venous NO GROWTH AFTER 48 HOURS 09/06/17 14:00 Blood Culture - Preliminary Blood-Thru Central Line NO GROWTH AFTER 4 DAYS 09/06/17 14:00 Blood Culture - Preliminary Blood-Thru Central Line NO GROWTH AFTER 4 DAYS 09/08/17 12:57 Blood Culture - Preliminary Blood-Venous NO GROWTH AFTER 48 HOURS 09/08/17 17:31 Gram Stain - Final Trachasp Sputum Culture - Final No growth. 09/02/17 07:46 Mycobacterial Culture - Preliminary Other: Please Indicate Lab Studies 09/10/17 09/10/17 09/10/17 Range/Units 12:13 06:16 06:15 WBC (4.8-10.8) K/uL RBC (4.40-5.90) Mil/uL Hgb (12.0-18.0) g/dL Hct (35.0-51.0) % MCV (80.0-94.0) fL MCH (27.0-31.0) pg MCHC (33.0-37.0) g/dL RDW (11.5-14.5) % Plt Count (130-400) K/uL MPV (7.2-11.7) fL Neut % (Auto) (50.0-75.0) % Lymph % (Auto) (20.0-40.0) % [place] % (Auto) (0.0-10.0) % Eos % (Auto) (0.0-4.0) % Baso % (Auto) (0.0-2.0) % Neut # (Auto) (1.8-7.0) K/uL Lymph # (Auto) (1.0-4.3) K/uL [place] # (Auto) (0.0-0.8) K/uL Eos # (Auto) (0.0-0.7) K/uL Baso # (Auto) (0.0-0.2) K/uL Sodium (132-148) mmol/L Potassium (3.6-5.2) mmol/L Chloride (98-107) mmol/L Carbon Dioxide (22-30) mmol/L Anion Gap (10-20) BUN (9-20) mg/dL Creatinine (0.8-1.5) mg/dL Est GFR ( Amer) Est GFR (Non-Af Amer) POC Glucose (mg/dL) 90 82 (65-110) mg/dL Random Glucose (75-110) mg/dL Calcium (8.6-10.4) mg/dl Phosphorus (2.5-4.5) mg/dL Magnesium (1.6-2.3) mg/dL Total Bilirubin (0.2-1.3) mg/dL AST (17-59) U/L ALT (21-72) U/L Alkaline Phosphatase (38-126) U/L Total Protein (6.3-8.3) g/dL Albumin (3.5-5.0) g/dL Globulin (2.2-3.9) gm/dL Albumin/Globulin Ratio (1.0-2.1) Valproic Acid 31.1 L (50.0-100.0) ug/mL Carbamazepine 11.8 (4.0-12.0) ug/mL 09/10/17 09/10/17 09/09/17 Range/Units 06:14 06:12 23:47 WBC 8.9 (4.8-10.8) K/uL RBC 2.87 L (4.40-5.90) Mil/uL Hgb 8.0 L (12.0-18.0) g/dL Hct 24.4 L (35.0-51.0) % MCV 84.9 (80.0-94.0) fL MCH 27.8 (27.0-31.0) pg MCHC 32.8 L (33.0-37.0) g/dL RDW 17.3 H (11.5-14.5) % Plt Count 220 (130-400) K/uL MPV 9.5 (7.2-11.7) fL Neut % (Auto) 59.9 (50.0-75.0) % Lymph % (Auto) 19.3 L (20.0-40.0) % [place] % (Auto) 19.8 H (0.0-10.0) % Eos % (Auto) 0.5 (0.0-4.0) % Baso % (Auto) 0.5 (0.0-2.0) % Neut # (Auto) 5.3 (1.8-7.0) K/uL Lymph # (Auto) 1.7 (1.0-4.3) K/uL [place] # (Auto) 1.8 H (0.0-0.8) K/uL Eos # (Auto) 0.0 (0.0-0.7) K/uL Baso # (Auto) 0.0 (0.0-0.2) K/uL Sodium 148 (132-148) mmol/L Potassium 3.8 (3.6-5.2) mmol/L Chloride 119 H (98-107) mmol/L Carbon Dioxide 16 L (22-30) mmol/L Anion Gap 17 (10-20) BUN 17 (9-20) mg/dL Creatinine 0.8 (0.8-1.5) mg/dL Est GFR ( Amer) > 60 Est GFR (Non-Af Amer) > 60 POC Glucose (mg/dL) 80 (65-110) mg/dL Random Glucose 66 L (75-110) mg/dL Calcium 6.7 L (8.6-10.4) mg/dl Phosphorus 3.4 (2.5-4.5) mg/dL Magnesium 1.9 (1.6-2.3) mg/dL Total Bilirubin 4.7 H (0.2-1.3) mg/dL AST 30 (17-59) U/L ALT < 6 L (21-72) U/L Alkaline Phosphatase 61 (38-126) U/L Total Protein 6.3 (6.3-8.3) g/dL Albumin 2.0 L (3.5-5.0) g/dL Globulin 4.3 H (2.2-3.9) gm/dL Albumin/Globulin Ratio 0.5 L (1.0-2.1) Valproic Acid (50.0-100.0) ug/mL Carbamazepine (4.0-12.0) ug/mL 09/09/17 Range/Units 18:18 WBC (4.8-10.8) K/uL RBC (4.40-5.90) Mil/uL Hgb (12.0-18.0) g/dL Hct (35.0-51.0) % MCV (80.0-94.0) fL MCH (27.0-31.0) pg MCHC (33.0-37.0) g/dL RDW (11.5-14.5) % Plt Count (130-400) K/uL MPV (7.2-11.7) fL Neut % (Auto) (50.0-75.0) % Lymph % (Auto) (20.0-40.0) % [place] % (Auto) (0.0-10.0) % Eos % (Auto) (0.0-4.0) % Baso % (Auto) (0.0-2.0) % Neut # (Auto) (1.8-7.0) K/uL Lymph # (Auto) (1.0-4.3) K/uL [place] # (Auto) (0.0-0.8) K/uL Eos # (Auto) (0.0-0.7) K/uL Baso # (Auto) (0.0-0.2) K/uL Sodium (132-148) mmol/L Potassium (3.6-5.2) mmol/L Chloride (98-107) mmol/L Carbon Dioxide (22-30) mmol/L Anion Gap (10-20) BUN (9-20) mg/dL Creatinine (0.8-1.5) mg/dL Est GFR ( Amer) Est GFR (Non-Af Amer) POC Glucose (mg/dL) 95 (65-110) mg/dL Random Glucose (75-110) mg/dL Calcium (8.6-10.4) mg/dl Phosphorus (2.5-4.5) mg/dL Magnesium (1.6-2.3) mg/dL Total Bilirubin (0.2-1.3) mg/dL AST (17-59) U/L ALT (21-72) U/L Alkaline Phosphatase (38-126) U/L Total Protein (6.3-8.3) g/dL Albumin (3.5-5.0) g/dL Globulin (2.2-3.9) gm/dL Albumin/Globulin Ratio (1.0-2.1) Valproic Acid (50.0-100.0) ug/mL Carbamazepine (4.0-12.0) ug/mL Laboratory Results - last 24 hr 09/09/17 09/09/17 09/10/17 18:18 23:47 06:12 WBC 8.9 RBC 2.87 L Hgb 8.0 L Hct 24.4 L MCV 84.9 MCH 27.8 MCHC 32.8 L RDW 17.3 H Plt Count 220 MPV 9.5 Neut % (Auto) 59.9 Lymph % (Auto) 19.3 L [place] % (Auto) 19.8 H Eos % (Auto) 0.5 Baso % (Auto) 0.5 Neut # (Auto) 5.3 Lymph # (Auto) 1.7 [place] # (Auto) 1.8 H Eos # (Auto) 0.0 Baso # (Auto) 0.0 Sodium Potassium Chloride Carbon Dioxide Anion Gap BUN Creatinine Est GFR ( Amer) Est GFR (Non-Af Amer) POC Glucose (mg/dL) 95 80 Random Glucose Calcium Phosphorus Magnesium Total Bilirubin AST ALT Alkaline Phosphatase Total Protein Albumin Globulin Albumin/Globulin Ratio Valproic Acid Carbamazepine 09/10/17 09/10/17 09/10/17 06:14 06:15 06:16 WBC RBC Hgb Hct MCV MCH MCHC RDW Plt Count MPV Neut % (Auto) Lymph % (Auto) [place] % (Auto) Eos % (Auto) Baso % (Auto) Neut # (Auto) Lymph # (Auto) [place] # (Auto) Eos # (Auto) Baso # (Auto) Sodium 148 Potassium 3.8 Chloride 119 H Carbon Dioxide 16 L Anion Gap 17 BUN 17 Creatinine 0.8 Est GFR ( Amer) > 60 Est GFR (Non-Af Amer) > 60 POC Glucose (mg/dL) 82 Random Glucose 66 L Calcium 6.7 L Phosphorus 3.4 Magnesium 1.9 Total Bilirubin 4.7 H AST 30 ALT < 6 L Alkaline Phosphatase 61 Total Protein 6.3 Albumin 2.0 L Globulin 4.3 H Albumin/Globulin Ratio 0.5 L Valproic Acid 31.1 L Carbamazepine 11.8 09/10/17 12:13 WBC RBC Hgb Hct MCV MCH MCHC RDW Plt Count MPV Neut % (Auto) Lymph % (Auto) [place] % (Auto) Eos % (Auto) Baso % (Auto) Neut # (Auto) Lymph # (Auto) [place] # (Auto) Eos # (Auto) Baso # (Auto) Sodium Potassium Chloride Carbon Dioxide Anion Gap BUN Creatinine Est GFR ( Amer) Est GFR (Non-Af Amer) POC Glucose (mg/dL) 90 Random Glucose Calcium Phosphorus Magnesium Total Bilirubin AST ALT Alkaline Phosphatase Total Protein Albumin Globulin Albumin/Globulin Ratio Valproic Acid Carbamazepine Critical Care Progress Note - Nutrition Nutrition: Nutrition Category Date Time Status NPO Diet [DIET] Diets 09/07/17 Dinner Active Assessment/Plan - Assessment and Plan (Free Text) Plan: Patient seen and examined at bedside Patient trach/peg/vent dependent with daily CPAP trials develops fevers overnight. PE reveals left ankle decubiti soft tissue infection. -suh culture, continue abx as per ID -continue to monitor Above resident documents my clinical findings and mangement - Date & Time Date: 09/10/17 Time: 14:46"
[2017-09-10] MEDS: Meropenem 500 MG in Sodium Chloride 0.9% 100 ML IVPB SCH ×2 (10:50→18:21)
--- NOTE | 2017-09-10 12:48 | CP.PCM.PN ---
Subjective - Date & Time of Evaluation Date of Evaluation: 09/10/17 Time of Evaluation: 08:00 - Subjective Subjective: Patient seen and examined Patient breathing in the mid 40s on CPAP Switched to PRVC mode Continue with PEG feeding Awaiting for an LTACH Continue antibiotics Objective - Vital Signs/Intake and Output Vital Signs (last 24 hours): Temp Pulse Resp BP Pulse Ox 98.7 F 103 H 40 H 82/47 L 97 09/10/17 08:44 09/10/17 11:03 09/10/17 11:03 09/10/17 11:03 09/10/17 10:05 Intake and Output: 09/10/17 09/10/17 06:59 18:59 Intake Total 1687 400 Output Total 630 97 Balance 1057 303 - Medications Medications: Current Medications Acetaminophen (Tylenol 325mg Tab) 650 mg PO Q6 PRN PRN Reason: Fever >100.4 F Last Admin: 09/10/17 07:44 Dose: 650 mg Albuterol/Ipratropium (Duoneb 3 Mg/0.5 Mg (3 Ml) Ud) 3 ml INH RQ6 [facility] Last Admin: 09/10/17 07:49 Dose: 3 ml Amantadine HCl (Symmetrel) 100 mg PO DAILY [facility] Last Admin: 09/10/17 09:57 Dose: 100 mg Ascorbic Acid (Vitamin C 500 Mg Tab) 500 mg PO DAILY [facility] Last Admin: 09/10/17 09:58 Dose: 500 mg Bisacodyl (Dulcolax) 10 mg [place] ONCE PRN PRN Reason: consipation Carbamazepine (Tegretol) 100 mg PEG Q8 [facility] Last Admin: 09/10/17 05:29 Dose: 100 mg Heparin Sodium (Porcine) (Heparin) 5,000 units SC Q12 [facility] Last Admin: 09/10/17 09:56 Dose: 5,000 units Vancomycin/Sodium Chloride (Vancomycin 1 Gm/Ns 200 Ml) 1 gm in 200 mls @ 133 mls/hr IVPB Q24H [facility] PRN Reason: Protocol Stop: 09/11/17 18:01 Last Admin: 09/09/17 18:01 Dose: 133 mls/hr Meropenem 500 mg/ Sodium (Chloride) 100 mls @ 100 mls/hr IVPB Q8H [facility] PRN Reason: Protocol Last Admin: 09/10/17 10:50 Dose: 100 mls/hr Metronidazole (Flagyl) 500 mg PEG TID [facility] PRN Reason: Protocol Multivitamins/Vitamin C (Multi-Delyn Liquid) 5 ml PO DAILY [facility] Last Admin: 09/10/17 09:57 Dose: 5 ml Pantoprazole Sodium (Protonix Susp) 40 mg PO DAILY [facility] Last Admin: 09/10/17 09:57 Dose: 40 mg Rosuvastatin Calcium (Crestor) 5 mg PO HS [facility] Last Admin: 09/09/17 21:41 Dose: 5 mg Valproate Sodium (Depakene Oral Soln) 250 mg PEG Q12 [facility] Last Admin: 09/10/17 09:56 Dose: 250 mg Zinc Sulfate (Zinc Sulfate 220 Mg Cap) 220 mg PO DAILY [facility] Last Admin: 09/10/17 09:58 Dose: 220 mg - Labs Labs: 09/10/17 06:12 09/10/17 06:14 PT 22.0 SECONDS (9.7-12.2) H 09/07/17 06:08 INR 2.0 09/07/17 06:08 APTT 43 SECONDS (21-34) H 09/07/17 06:08 Assessment and Plan (1) Respiratory failure Status: Acute (2) Anemia Status: Acute (3) Pneumonia Status: Acute
--- NOTE | 2017-09-10 16:00 | CP.PCM.PN ---
Subjective - Date & Time of Evaluation Date of Evaluation: 09/10/17 Time of Evaluation: 03:00 - Subjective Subjective: dictated Objective - Vital Signs/Intake and Output Vital Signs (last 24 hours): Temp Pulse Resp BP Pulse Ox 99.9 F H 101 H 32 H 90/54 L 95 09/10/17 12:00 09/10/17 14:03 09/10/17 14:03 09/10/17 14:03 09/10/17 14:03 Intake and Output: 09/10/17 09/10/17 06:59 18:59 Intake Total 1687 400 Output Total 630 97 Balance 1057 303 - Medications Medications: Current Medications Acetaminophen (Tylenol 325mg Tab) 650 mg PO Q6 PRN PRN Reason: Fever >100.4 F Last Admin: 09/10/17 07:44 Dose: 650 mg Albuterol/Ipratropium (Duoneb 3 Mg/0.5 Mg (3 Ml) Ud) 3 ml INH RQ6 [facility] Last Admin: 09/10/17 13:18 Dose: 3 ml Amantadine HCl (Symmetrel) 100 mg PO DAILY [facility] Last Admin: 09/10/17 09:57 Dose: 100 mg Ascorbic Acid (Vitamin C 500 Mg Tab) 500 mg PO DAILY [facility] Last Admin: 09/10/17 09:58 Dose: 500 mg Bisacodyl (Dulcolax) 10 mg [place] ONCE PRN PRN Reason: consipation Carbamazepine (Tegretol) 100 mg PEG Q8 [facility] Last Admin: 09/10/17 15:18 Dose: 100 mg Heparin Sodium (Porcine) (Heparin) 5,000 units SC Q12 [facility] Last Admin: 09/10/17 09:56 Dose: 5,000 units Vancomycin/Sodium Chloride (Vancomycin 1 Gm/Ns 200 Ml) 1 gm in 200 mls @ 133 mls/hr IVPB Q24H [facility] PRN Reason: Protocol Stop: 09/11/17 18:01 Last Admin: 09/09/17 18:01 Dose: 133 mls/hr Meropenem 500 mg/ Sodium (Chloride) 100 mls @ 100 mls/hr IVPB Q8H [facility] PRN Reason: Protocol Last Admin: 09/10/17 10:50 Dose: 100 mls/hr Metronidazole (Flagyl) 500 mg PEG TID [facility] PRN Reason: Protocol Last Admin: 09/10/17 15:18 Dose: 500 mg Multivitamins/Vitamin C (Multi-Delyn Liquid) 5 ml PO DAILY [facility] Last Admin: 09/10/17 09:57 Dose: 5 ml Pantoprazole Sodium (Protonix Susp) 40 mg PO DAILY [facility] Last Admin: 09/10/17 09:57 Dose: 40 mg Rosuvastatin Calcium (Crestor) 5 mg PO HS [facility] Last Admin: 09/09/17 21:41 Dose: 5 mg Valproate Sodium (Depakene Oral Soln) 250 mg PEG Q12 [facility] Last Admin: 09/10/17 09:56 Dose: 250 mg Zinc Sulfate (Zinc Sulfate 220 Mg Cap) 220 mg PO DAILY [facility] Last Admin: 09/10/17 09:58 Dose: 220 mg - Labs Labs: 09/10/17 06:12 09/10/17 06:14 PT 22.0 SECONDS (9.7-12.2) H 09/07/17 06:08 INR 2.0 09/07/17 06:08 APTT 43 SECONDS (21-34) H 09/07/17 06:08
[2017-09-10] MEDS ORDERED: Lactated Ringer's 1,000 ML IV ONE ×2 (16:34→17:49)
[2017-09-10] MEDS: Vancomycin 1 gm/NS 200 ml 1 GM/200 ML BAG IVPB SCH (18:03)
--- NOTE | 2017-09-10 23:34 | PN ---
DATE: 09/10/2017 SUBJECTIVE: The patient is still in ICU. He remains on the trach vent. PHYSICAL EXAMINATION: VITAL SIGNS: T-max is 101.1 this morning and the resident called me and they switched some antibiotics around, pulse is 93, blood pressure remains at 86/46, and respirations are 34. His blood pressure is mostly on the low side. Yesterday, he got 2 doses of albumin and today also if blood pressure remains low, they may try that. GENERAL: He remains mostly drowsy. Trach site is unremarkable. LUNGS: Have bilateral rhonchi, right side has more rhonchi than left. HEART: S1 and S2 are regular. ABDOMEN: Soft and nontender. No guarding. No rigidity present. 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 Right heel has a necrotic ulceration and now may be suggestive of osteomyelitis, needs to be ruled out, so will order a bone scan. He also has ulcer on the lateral malleoli, nurse said she took a culture from there this morning. LABORATORY DATA: His white count is 8.9, hemoglobin 8, hematocrit 24.4, platelet count is 220, neutrophils are 59.9, and monos are 1.8, also since he is still having fever and white count remains normal with normal differential, I am also concern if this is some sort of a drug fever, will need to review the drugs also if they are causing fever. Sodium is 148, potassium 3.8, chlorides are 119, CO2 16, BUN is 17, creatinine 0.8, and his total bilirubin is 4.7, is high, so he is jaundiced 4.7, but AST and ALT are unremarkable. Alk phos is unremarkable. His hemoglobin is about the same. Creatinine is 0.8. The cultures tracheal aspirate sputum did not grow anything. Urine culture was negative. He also had a bronch which did not reveal any AFB or any fungal culture positive. X-ray today shows no significant change, right side post surgical volume loss, not significantly changed. ASSESSMENT AND PLAN: So at this time, he is on vancomycin and we added Merrem and Flagyl has been changed to via the percutaneous endoscopic gastrostomy. He still has the rectal tube. He has a Brown catheter and they are evaluating him for LTAC, but still remains with low blood pressure and often on has fever, remains with a chronic respiratory failure, status post tracheostomy and has been treated for pneumonia and for mycoplasma and will continue vancomycin and Merrem at this time. We will follow. Bladimir Muñoz MD
--- NOTE | 2017-09-11 00:26 | CP.PCM.PN ---
Subjective - Date & Time of Evaluation Date of Evaluation: 09/10/17 Time of Evaluation: 18:00 - Subjective Subjective: Pt seen and examined at bedside Objective - Vital Signs/Intake and Output Vital Signs (last 24 hours): Temp Pulse Resp BP Pulse Ox 97.9 F 105 H 35 H 91/51 L 99 09/10/17 20:00 09/10/17 21:00 09/10/17 21:00 09/10/17 21:00 09/10/17 21:00 Intake and Output: 09/10/17 09/11/17 18:59 06:59 Intake Total 2811 537 Output Total 246 Balance 2565 537 - Medications Medications: Current Medications Acetaminophen (Tylenol 325mg Tab) 650 mg PO Q6 PRN PRN Reason: Fever >100.4 F Last Admin: 09/10/17 07:44 Dose: 650 mg Albuterol/Ipratropium (Duoneb 3 Mg/0.5 Mg (3 Ml) Ud) 3 ml INH RQ6 [facility] Last Admin: 09/10/17 19:28 Dose: 3 ml Amantadine HCl (Symmetrel) 100 mg PO DAILY [facility] Last Admin: 09/10/17 09:57 Dose: 100 mg Ascorbic Acid (Vitamin C 500 Mg Tab) 500 mg PO DAILY [facility] Last Admin: 09/10/17 09:58 Dose: 500 mg Bisacodyl (Dulcolax) 10 mg [place] ONCE PRN PRN Reason: consipation Carbamazepine (Tegretol) 100 mg PEG Q8 [facility] Last Admin: 09/10/17 21:10 Dose: 100 mg Heparin Sodium (Porcine) (Heparin) 5,000 units SC Q12 [facility] Last Admin: 09/10/17 21:10 Dose: 5,000 units Vancomycin/Sodium Chloride (Vancomycin 1 Gm/Ns 200 Ml) 1 gm in 200 mls @ 133 mls/hr IVPB Q24H [facility] PRN Reason: Protocol Stop: 09/11/17 18:01 Last Admin: 09/10/17 18:03 Dose: 133 mls/hr Meropenem 500 mg/ Sodium (Chloride) 100 mls @ 100 mls/hr IVPB Q8H [facility] PRN Reason: Protocol Last Admin: 09/10/17 18:21 Dose: 100 mls/hr Metronidazole (Flagyl) 500 mg PEG TID [facility] PRN Reason: Protocol Last Admin: 09/10/17 18:03 Dose: 500 mg Multivitamins/Vitamin C (Multi-Delyn Liquid) 5 ml PO DAILY [facility] Last Admin: 09/10/17 09:57 Dose: 5 ml Pantoprazole Sodium (Protonix Susp) 40 mg PO DAILY [facility] Last Admin: 09/10/17 09:57 Dose: 40 mg Rosuvastatin Calcium (Crestor) 5 mg PO HS [facility] Last Admin: 09/10/17 21:10 Dose: 5 mg Valproate Sodium (Depakene Oral Soln) 250 mg PEG Q12 [facility] Last Admin: 09/10/17 21:10 Dose: 250 mg Zinc Sulfate (Zinc Sulfate 220 Mg Cap) 220 mg PO DAILY [facility] Last Admin: 09/10/17 09:58 Dose: 220 mg - Labs Labs: 09/10/17 06:12 09/10/17 06:14 PT 22.0 SECONDS (9.7-12.2) H 09/07/17 06:08 INR 2.0 09/07/17 06:08 APTT 43 SECONDS (21-34) H 09/07/17 06:08 Assessment and Plan (1) Sepsis Status: Acute (2) Fever Status: Acute (3) Seizure disorder Status: Acute (4) COPD (chronic obstructive pulmonary disease) Status: Chronic (5) PVD (peripheral vascular disease) Status: Chronic (6) Respiratory failure Status: Acute (7) Status post tracheostomy Status: Acute (8) Pneumonia Status: Acute
[2017-09-11] MEDS: Albuterol-Ipratrop 3 mg / 0.5 (3 ml) UD INH SCH ×4 (01:29→19:35)
[2017-09-11] MEDS: Meropenem 500 MG in Sodium Chloride 0.9% 100 ML IVPB SCH ×3 (04:00→18:05)
[2017-09-11] MEDS: carBAMazepine Chew Tab 100 MG Chew Tab PEG SCH ×3 (05:05→21:05)
[2017-09-11 06:36] LABS: BASO # 0.1 K/uL (0.0-0.2); BASO % 0.8 % (0.0-2.0); EOS % 0.4 % (0.0-4.0); HEMOGLOBIN 7.8 g/dL (12.0-18.0); LYMPH # 1.7 K/uL (1.0-4.3); LYMPH % 21.9 % (20.0-40.0); MEAN CELL VOLUME 85.2 fL (80.0-94.0); MEAN CORPUSCULAR HEMOGLOBIN 28.3 pg (27.0-31.0); MEAN CORPUSCULAR HGB CONC 33.2 g/dL (33.0-37.0); MEAN PLATELET VOLUME 9.9 fL (7.2-11.7); MONO # 1.7 K/uL (0.0-0.8); MONO % 22.2 % (0.0-10.0); NEUT # 4.1 K/uL (1.8-7.0); NEUT % 54.7 % (50.0-75.0); PLATELET COUNT 189 K/uL (130-400); RBC 2.74 Mil/uL (4.40-5.90); WHITE BLOOD COUNT 7.5 K/uL (4.8-10.8)
[2017-09-11 06:48] LABS: ALB/GLOB RATIO 0.4 (1.0-2.1); ALBUMIN 1.9 g/dL (3.5-5.0); ALT/SGPT < 6 U/L (21-72); AST/SGOT 47 U/L (17-59); BLOOD UREA NITROGEN 18 mg/dL (9-20); GFR AFRICAN-AMERICAN > 60; GFR NON-AFRICAN AMERICAN > 60
[2017-09-11 08:21] LABS: BANDS 4 % (0-2); LYMPHOCYTE 22 % (20-40); MONOCYTE 21 % (0-10); NEUTROPHIL 53 % (50-75); TOTAL CELLS COUNTED 100
[2017-09-11 08:22] LABS: ANISOCYTOSIS SLIGHT; LARGE PLATELETS PRESENT; PLATELET CLUMPS PRESENT; PLATELET ESTIMATE NORMAL (NORMAL)
[2017-09-11 08:24] LABS: HYPOCHROMIC SLIGHT; POLYCHROMIC SLIGHT
[2017-09-11 08:25] LABS: SPHEROCYTES SLIGHT
[2017-09-11] MEDS: Pantoprazole 40 mg Susp UD PO SCH (09:19)
--- NOTE | 2017-09-11 09:29 | CP.CCUPN ---
"<Tita Xie - Last Filed: 09/11/17 09:24> CCU Subjective - Physician Review Subjective (Free Text): Patient was seen and examined at bedside. Remains on PRVC continued Rate 18, FiO2 40%, PEEP 5. Patient remains sugglish, responds to pain. ROS unattainable. S/P tracheostomy 09/07/17. Plan for LTAC - pending case management CCU Objective - Vital Signs / Intake & Output Vital Signs (Last 4 hours): Vital Signs Temp Pulse Resp BP Pulse Ox 09/11/17 08:01 102 H 33 H 100 09/11/17 08:00 99.2 F 103 H 19 85/47 L 100 09/11/17 07:01 99 H 33 H 96/57 L 100 09/11/17 06:06 97/49 L 09/11/17 06:01 100 H 37 H 99 09/11/17 06:00 99 H 39 H 108/64 98 Intake and Output (Last 8hrs): Intake & Output 09/10/17 09/11/17 09/11/17 22:59 06:59 14:59 Intake Total 2998 1000 100 Output Total 71 250 Balance 2927 750 100 Weight 149 lb 14.629 oz Intake: Intake, IV Amount 2298 100 0 Left Distal Port PICC 300 100 0 Left Medial Port PICC 1998 Oral 350 500 Tube Feeding 350 400 100 Output: Urine 71 250 Urethral (Brown) 71 250 Other: # Bowel Movements 1 - Physical Exam Head: Positive for: Atraumatic, Normocephalic Pupils: Positive for: Sluggish Mouth: Positive for: Dry. Negative for: Moist Mucous Membranes Neck: Positive for: Other (tracheostomy ) Respiratory/Chest: Positive for: Clear to Auscultation, Decreased Breath Sounds (RUL ), Other (Intubated) Cardiovascular: Positive for: Normal S1, S2. Negative for: Tachycardic Abdomen: Positive for: Normal Bowel Sounds. Negative for: Distention Neurological: Negative for: GCS=15 (10T) Skin: Positive for: Warm, Dry, Normal Color. Negative for: Rashes Psychiatric: Negative for: Alert - Medications Active Medications: Active Medications Generic Name Dose Route Start Last Admin Trade Name Freq PRN Reason Stop Dose Admin Acetaminophen 650 mg 09/08/17 14:59 06/08/18 07:44 Tylenol 325mg Tab PO 650 mg Q6 PRN Administration Fever >100.4 F Albuterol/Ipratropium 3 ml 08/28/17 08:00 09/11/17 07:32 Duoneb 3 Mg/0.5 Mg (3 Ml) Ud INH 3 ml RQ6 AMY Administration Amantadine HCl 100 mg 09/05/17 10:00 09/10/17 09:57 Symmetrel PO 100 mg DAILY MAY Administration Ascorbic Acid 500 mg 09/10/17 10:00 09/11/17 09:19 Vitamin C 500 Mg Tab PO 500 mg DAILY AMY Administration Bisacodyl 10 mg 08/29/17 08:30 Dulcolax WA ONCE PRN consipation Carbamazepine 100 mg 08/24/17 22:00 09/11/17 05:05 Tegretol PEG 100 mg Q8 AMY Administration Finasteride 5 mg 09/11/17 10:00 Proscar PO DAILY AMY Heparin Sodium (Porcine) 5,000 units 09/09/17 11:00 09/11/17 09:18 Heparin SC 5,000 units Q12 AMY Administration Vancomycin/Sodium Chloride 1 gm in 200 mls @ 133 mls/hr 09/06/17 18:00 18:03 Vancomycin 1 Gm/Ns 200 Ml IVPB 09/11/17 18:01 133 mls/hr Q24H AMY Administration Protocol Meropenem 500 mg/ Sodium 100 mls @ 100 mls/hr 09/10/17 11:00 09/11/17 04:00 Chloride IVPB 100 mls/hr Q8H AMY Administration Protocol Metronidazole 500 mg 09/10/17 14:00 09/10/17 18:03 Flagyl PEG 500 mg TID AMY Administration Protocol Midodrine 5 mg 09/11/17 10:00 Proamatine PO TID AMY Multivitamins/Vitamin C 5 ml 09/10/17 10:00 09/10/17 09:57 Multi-Delyn Liquid PO 5 ml DAILY AMY Administration Pantoprazole Sodium 40 mg 08/29/17 10:00 09/11/17 09:19 Protonix Susp PO 40 mg DAILY AMY Administration Rosuvastatin Calcium 5 mg 08/24/17 22:00 09/10/17 21:10 Crestor PO 5 mg HS AMY Administration Valproate Sodium 250 mg 09/02/17 22:00 09/10/17 21:10 Depakene Oral Soln PEG 250 mg Q12 AMY Administration Zinc Sulfate 220 mg 09/10/17 10:00 09/11/17 09:19 Zinc Sulfate 220 Mg Cap PO 220 mg DAILY AMY Administration - Patient Studies Lab Studies: Microbiology Studies 09/02/17 14:09 Mycobacterial Culture - Preliminary Other: Please Indicate 09/08/17 12:57 Blood Culture - Preliminary Blood-Venous NO GROWTH AFTER 48 HOURS 09/06/17 14:00 Blood Culture - Preliminary Blood-Thru Central Line NO GROWTH AFTER 4 DAYS 09/06/17 14:00 Blood Culture - Preliminary Blood-Thru Central Line NO GROWTH AFTER 4 DAYS 09/08/17 12:57 Blood Culture - Preliminary Blood-Venous NO GROWTH AFTER 48 HOURS 09/08/17 17:31 Gram Stain - Final Trachasp Sputum Culture - Final No growth. 09/02/17 07:46 Mycobacterial Culture - Preliminary Other: Please Indicate Lab Studies 09/11/17 09/11/17 09/11/17 Range/Units 06:29 06:29 05:15 WBC 7.5 (4.8-10.8) K/uL RBC 2.74 L (4.40-5.90) Mil/uL Hgb 7.8 L (12.0-18.0) g/dL Hct 23.4 L (35.0-51.0) % MCV 85.2 (80.0-94.0) fL MCH 28.3 (27.0-31.0) pg MCHC 33.2 (33.0-37.0) g/dL RDW 18.0 H (11.5-14.5) % Plt Count 189 (130-400) K/uL MPV 9.9 (7.2-11.7) fL Neut % (Auto) 54.7 (50.0-75.0) % Lymph % (Auto) 21.9 (20.0-40.0) % [place] % (Auto) 22.2 H (0.0-10.0) % Eos % (Auto) 0.4 (0.0-4.0) % Baso % (Auto) 0.8 (0.0-2.0) % Neut # (Auto) 4.1 (1.8-7.0) K/uL Lymph # (Auto) 1.7 (1.0-4.3) K/uL [place] # (Auto) 1.7 H (0.0-0.8) K/uL Eos # (Auto) 0.0 (0.0-0.7) K/uL Baso # (Auto) 0.1 (0.0-0.2) K/uL Neutrophils % (Manual) 53 (50-75) % Band Neutrophils % 4 H (0-2) % Lymphocytes % (Manual) 22 (20-40) % Monocytes % (Manual) 21 H (0-10) % Platelet Estimate Normal (NORMAL) Plt Clumps, EDTA Present Large Platelets Present Polychromasia Slight Hypochromasia (manual) Slight Anisocytosis (manual) Slight Spherocytes Slight Sodium 144 (132-148) mmol/L Potassium 3.9 (3.6-5.2) mmol/L Chloride 116 H (98-107) mmol/L Carbon Dioxide 18 L (22-30) mmol/L Anion Gap 15 (10-20) BUN 18 (9-20) mg/dL Creatinine 0.8 (0.8-1.5) mg/dL Est GFR ( Amer) > 60 Est GFR (Non-Af Amer) > 60 POC Glucose (mg/dL) 75 (65-110) mg/dL Random Glucose 64 L (75-110) mg/dL Calcium 7.0 L (8.6-10.4) mg/dl Phosphorus 3.6 (2.5-4.5) mg/dL Magnesium 1.8 (1.6-2.3) mg/dL Total Bilirubin 4.5 H (0.2-1.3) mg/dL AST 47 (17-59) U/L ALT < 6 L (21-72) U/L Alkaline Phosphatase 84 (38-126) U/L Total Protein 6.2 L (6.3-8.3) g/dL Albumin 1.9 L (3.5-5.0) g/dL Globulin 4.3 H (2.2-3.9) gm/dL Albumin/Globulin Ratio 0.4 L (1.0-2.1) 09/10/17 09/10/17 09/10/17 Range/Units 23:36 17:37 12:13 WBC (4.8-10.8) K/uL RBC (4.40-5.90) Mil/uL Hgb (12.0-18.0) g/dL Hct (35.0-51.0) % MCV (80.0-94.0) fL MCH (27.0-31.0) pg MCHC (33.0-37.0) g/dL RDW (11.5-14.5) % Plt Count (130-400) K/uL MPV (7.2-11.7) fL Neut % (Auto) (50.0-75.0) % Lymph % (Auto) (20.0-40.0) % [place] % (Auto) (0.0-10.0) % Eos % (Auto) (0.0-4.0) % Baso % (Auto) (0.0-2.0) % Neut # (Auto) (1.8-7.0) K/uL Lymph # (Auto) (1.0-4.3) K/uL [place] # (Auto) (0.0-0.8) K/uL Eos # (Auto) (0.0-0.7) K/uL Baso # (Auto) (0.0-0.2) K/uL Neutrophils % (Manual) (50-75) % Band Neutrophils % (0-2) % Lymphocytes % (Manual) (20-40) % Monocytes % (Manual) (0-10) % Platelet Estimate (NORMAL) Plt Clumps, EDTA Large Platelets Polychromasia Hypochromasia (manual) Anisocytosis (manual) Spherocytes Sodium (132-148) mmol/L Potassium (3.6-5.2) mmol/L Chloride (98-107) mmol/L Carbon Dioxide (22-30) mmol/L Anion Gap (10-20) BUN (9-20) mg/dL Creatinine (0.8-1.5) mg/dL Est GFR ( Amer) Est GFR (Non-Af Amer) POC Glucose (mg/dL) 78 78 90 (65-110) mg/dL Random Glucose (75-110) mg/dL Calcium (8.6-10.4) mg/dl Phosphorus (2.5-4.5) mg/dL Magnesium (1.6-2.3) mg/dL Total Bilirubin (0.2-1.3) mg/dL AST (17-59) U/L ALT (21-72) U/L Alkaline Phosphatase (38-126) U/L Total Protein (6.3-8.3) g/dL Albumin (3.5-5.0) g/dL Globulin (2.2-3.9) gm/dL Albumin/Globulin Ratio (1.0-2.1) Laboratory Results - last 24 hr 09/10/17 09/10/17 09/10/17 12:13 17:37 23:36 WBC RBC Hgb Hct MCV MCH MCHC RDW Plt Count MPV Neut % (Auto) Lymph % (Auto) [place] % (Auto) Eos % (Auto) Baso % (Auto) Neut # (Auto) Lymph # (Auto) [place] # (Auto) Eos # (Auto) Baso # (Auto) Neutrophils % (Manual) Band Neutrophils % Lymphocytes % (Manual) Monocytes % (Manual) Platelet Estimate Plt Clumps, EDTA Large Platelets Polychromasia Hypochromasia (manual) Anisocytosis (manual) Spherocytes Sodium Potassium Chloride Carbon Dioxide Anion Gap BUN Creatinine Est GFR ( Amer) Est GFR (Non-Af Amer) POC Glucose (mg/dL) 90 78 78 Random Glucose Calcium Phosphorus Magnesium Total Bilirubin AST ALT Alkaline Phosphatase Total Protein Albumin Globulin Albumin/Globulin Ratio 09/11/17 09/11/17 09/11/17 05:15 06:29 06:29 WBC 7.5 RBC 2.74 L Hgb 7.8 L Hct 23.4 L MCV 85.2 MCH 28.3 MCHC 33.2 RDW 18.0 H Plt Count 189 MPV 9.9 Neut % (Auto) 54.7 Lymph % (Auto) 21.9 [place] % (Auto) 22.2 H Eos % (Auto) 0.4 Baso % (Auto) 0.8 Neut # (Auto) 4.1 Lymph # (Auto) 1.7 [place] # (Auto) 1.7 H Eos # (Auto) 0.0 Baso # (Auto) 0.1 Neutrophils % (Manual) 53 Band Neutrophils % 4 H Lymphocytes % (Manual) 22 Monocytes % (Manual) 21 H Platelet Estimate Normal Plt Clumps, EDTA Present Large Platelets Present Polychromasia Slight Hypochromasia (manual) Slight Anisocytosis (manual) Slight Spherocytes Slight Sodium 144 Potassium 3.9 Chloride 116 H Carbon Dioxide 18 L Anion Gap 15 BUN 18 Creatinine 0.8 Est GFR ( Amer) > 60 Est GFR (Non-Af Amer) > 60 POC Glucose (mg/dL) 75 Random Glucose 64 L Calcium 7.0 L Phosphorus 3.6 Magnesium 1.8 Total Bilirubin 4.5 H AST 47 ALT < 6 L Alkaline Phosphatase 84 Total Protein 6.2 L Albumin 1.9 L Globulin 4.3 H Albumin/Globulin Ratio 0.4 L Fingerstick Blood Sugar Results: 75 Critical Care Progress Note - Nutrition Nutrition: Nutrition Category Date Time Status NPO Diet [DIET] Diets 09/07/17 Dinner Active Assessment/Plan - Assessment and Plan (Free Text) Assessment: 77 year old male with PMHx of Arthritis, Asthma, COPD, Severe Dementia, HTN, Seizures, TIA with PEG, and Right AKA presents from long term due to fever. Admitted to ICU, intubated due to respiratory failure. Code Sepsis 2/2 Mycoplasma Pneumonia 08/27/17, Entercolitis. S/P bronchoscopy 09/03/17. S/P Tracheostomy 09/07/17. Pending LTAC placement. Plan: Neuro: GCS: 10T Sedation: None A: Severe Dementia, Hx of Seizure Home Carbamazepine 100mg Q8 | Home Valproic Acid 250mg PEG QID Changed to Q12H Amantadine 100mg PO Daily per Neuro Cardio: A: HxHTN, Hx of TIA, HLD Crestor 5mg PO HS A: Hypotension - Started Midodrine 5mg PO TID Pulm: A: Hypoxic Res. Failure, Asthma, COPD, Mycoplasma Pneumonia + 08/27/17 CXR (Admission): Stable postsurgical changes in the right lung with low lung volume and shift of mediastinal to the right. No acute findings. CXR (09/03): No significant interval change in right upper lobe cystic changes/ bulla and right pleural effusion. Stable position of endotracheal tube. S/P bronchoscopy 09/03/17 - bronchial washings - negative for any growth S/P Tracheostomy 09/07/[address] Celestine Monae Scheduled Endo A: Hypoglycemia (Stable) GI: A: Enterocolitis CT chest Abd/Pelvis (08/27): Enterocolits; ascities;mild bladder wall thickening with air in the bladder, iatrogenic versus infectious. -Flagyl started 08/31/17 A: Elevated T. Bili - Continue to monitor, unremarkable on CT Scan Renal: A: Hypocalcemia, corrected calcium - within normal limits, Hypokalemia Replace electrolytes PRN Heme/Onc: A: Normocytic Anemia HgB stable at new baseline of low 8s Transfused 1 unit throughout admission Transfused 2nd unit 09/07/17 Stool Occult Blood - NEGATIVE ID A: Code Sepsis, Leukocytosis (Resolved) ID on Consult, Recs Appreciated - Dr. Muñoz Cultures (08/24, 08/31) Blood - NEGATIVE to date | Urine - NEGATIVE to date | Sputum - Normal Oral Kim | MRSA - NEGATIVE Wound Cultures - Coagulase Neg Staph, Likely normal Skin Kim Mycoplasma Pneumonia IgM - positive, Patient has chronic Mycoplasma IgM. This was positive on 08/03/17 AFB Sputum Culture x 2 negative, Aspergillus AB and Antigen, H. Galactomannan Antigen, Histoplasma AB,- ALL NEGATIVE, Quant Gold - PENDING Antibiotics: Stopped - Moxifloxacin 400mg Q24H (09/01-09/08). stopped Micafungin 100mg Q24H started on 09/01 - Switched to doxy 100 Q12 09/08/17- DC on 09/10/17 and continued Flagyl 500mg Q8H started 08/31 (changed to PO through peg), continued Vanco 1 gram Q24 09/06 - spiked 101F 09/05/17 at 12:30pm - was not suh cultured, low grade fever 100.6F on 09/08, 100.9 5:30am 09/09 - pending repeat cultures 09/07 and 09/08 A: Left Foot ??Osteo/ Soft tissue infection - Continued to be febrile 101.1 8am 09/10/17 - Abx regimen changed to Meropenem 500mg IVP Q8H, Continued Vanco 1 gram Q24, flagyl 500mg PEG TID - Added vitamin C and zinc - F/U wound culture : A: Urinary Retention - Started Proscar 5mg PO Integumentary A: Left Lower ext wounds - Wound Care Prophylaxis - Protonix - Lovenox (Held) due to tracheostomy 09/07/17 - Diet: Tube Feeding - Jevity 1.5 - Lines: Right IJ Central Line removed, placed Left PICC line 09/06/17, consent retrieved from Elizabet legal guardian [phone] Disposition: Pending placement in LTAC DW with ICU Attending - Dr. Leanne Bain, Tita Xie, PGY-1 <Juliann Bain M - Last Filed: 09/11/17 14:05> CCU Objective - Vital Signs / Intake & Output Vital Signs (Last 4 hours): Vital Signs Temp Pulse Resp BP Pulse Ox 09/11/17 13:01 115 H 38 H 99 09/11/17 13:00 111 H 34 H 93/56 L 98 09/11/17 12:00 99.6 F 100 H 32 H 96/61 L 98 09/11/17 11:02 112 H 17 100 09/11/17 11:00 105 H 35 H 99/65 L 100 Intake and Output (Last 8hrs): Intake & Output 09/10/17 09/11/17 09/11/17 22:59 06:59 14:59 Intake Total 2998 1000 450 Output Total 71 250 Balance 2927 750 450 Weight 149 lb 14.629 oz Intake: Intake, IV Amount 2298 100 100 Left Distal Port PICC 300 100 100 Left Medial Port PICC 1998 Oral 350 500 Tube Feeding 350 400 350 Output: Urine 71 250 Urethral (Brown) 71 250 Other: # Bowel Movements 1 - Medications Active Medications: Active Medications Generic Name Dose Route Start Last Admin Trade Name Freq PRN Reason Stop Dose Admin Acetaminophen 650 mg 09/08/17 14:59 09/10/17 07:44 Tylenol 325mg Tab PO 650 mg Q6 PRN Administration Fever >100.4 F Albuterol/Ipratropium 3 ml 08/28/17 08:00 09/11/17 13:26 Duoneb 3 Mg/0.5 Mg (3 Ml) Ud INH 3 ml RQ6 AMY Administration Amantadine HCl 100 mg 09/05/17 10:00 09/10/17 09:57 Symmetrel PO 100 mg DAILY AMY Administration Ascorbic Acid 500 mg 09/10/17 10:00 09/11/17 09:19 Vitamin C 500 Mg Tab PO 500 mg DAILY AMY Administration Carbamazepine 100 mg 08/24/17 22:00 09/11/17 05:05 Tegretol PEG 100 mg Q8 AMY Administration Finasteride 5 mg 09/11/17 10:00 09/11/17 10:00 Proscar PO 5 mg DAILY AMY Administration Heparin Sodium (Porcine) 5,000 units 09/09/17 11:00 09/11/17 09:18 Heparin SC 5,000 units Q12 AMY Administration Vancomycin/Sodium Chloride 1 gm in 200 mls @ 133 mls/hr 09/06/17 18:00 18:03 Vancomycin 1 Gm/Ns 200 Ml IVPB 09/11/17 18:01 133 mls/hr Q24H AMY Administration Protocol Meropenem 500 mg/ Sodium 100 mls @ 100 mls/hr 09/10/17 11:00 09/11/17 11:59 Chloride IVPB 100 mls/hr Q8H AMY Administration Protocol Metronidazole 500 mg 09/10/17 14:00 09/11/17 14:00 Flagyl PEG 500 mg TID AMY Administration Protocol Midodrine 5 mg 09/11/17 10:00 09/11/17 14:00 Proamatine PO 5 mg TID AMY Administration Multivitamins/Vitamin C 5 ml 09/10/17 10:00 09/11/17 11:00 Multi-Delyn Liquid PO 5 ml DAILY AMY Administration Pantoprazole Sodium 40 mg 08/29/17 10:00 09/11/17 09:19 Protonix Susp PO 40 mg DAILY AMY Administration Rosuvastatin Calcium 5 mg 08/24/17 22:00 09/10/17 21:10 Crestor PO 5 mg HS AMY Administration Saccharomyces Boulardii 250 mg 09/11/17 10:00 09/11/17 11:00 Florastor PO 250 mg BID AMY Administration Valproate Sodium 250 mg 09/02/17 22:00 09/11/17 11:00 Depakene Oral Soln PEG 250 mg Q12 AMY Administration Zinc Sulfate 220 mg 09/10/17 10:00 09/11/17 09:19 Zinc Sulfate 220 Mg Cap PO 220 mg DAILY AMY Administration - Patient Studies Lab Studies: Microbiology Studies 09/06/17 14:00 Blood Culture - Final Blood-Thru Central Line NO GROWTH AFTER 5 DAYS Gram Stain - Final TEST NOT PERFORMED 09/06/17 14:00 Blood Culture - Final Blood-Thru Central Line NO GROWTH AFTER 5 DAYS Gram Stain - Final TEST NOT PERFORMED 09/10/17 22:32 Gram Stain - Final Foot - Left 09/08/17 12:57 Blood Culture - Preliminary Blood-Venous NO GROWTH AFTER 3 DAYS 09/08/17 12:57 Blood Culture - Preliminary Blood-Venous NO GROWTH AFTER 3 DAYS 09/02/17 14:09 Mycobacterial Culture - Preliminary Other: Please Indicate 09/08/17 17:31 Gram Stain - Final Trachasp Sputum Culture - Final No growth. 09/02/17 07:46 Mycobacterial Culture - Preliminary Other: Please Indicate Lab Studies 09/11/17 09/11/17 09/11/17 Range/Units 11:35 06:29 06:29 WBC 7.5 (4.8-10.8) K/uL RBC 2.74 L (4.40-5.90) Mil/uL Hgb 7.8 L (12.0-18.0) g/dL Hct 23.4 L (35.0-51.0) % MCV 85.2 (80.0-94.0) fL MCH 28.3 (27.0-31.0) pg MCHC 33.2 (33.0-37.0) g/dL RDW 18.0 H (11.5-14.5) % Plt Count 189 (130-400) K/uL MPV 9.9 (7.2-11.7) fL Neut % (Auto) 54.7 (50.0-75.0) % Lymph % (Auto) 21.9 (20.0-40.0) % [place] % (Auto) 22.2 H (0.0-10.0) % Eos % (Auto) 0.4 (0.0-4.0) % Baso % (Auto) 0.8 (0.0-2.0) % Neut # (Auto) 4.1 (1.8-7.0) K/uL Lymph # (Auto) 1.7 (1.0-4.3) K/uL [place] # (Auto) 1.7 H (0.0-0.8) K/uL Eos # (Auto) 0.0 (0.0-0.7) K/uL Baso # (Auto) 0.1 (0.0-0.2) K/uL Neutrophils % (Manual) 53 (50-75) % Band Neutrophils % 4 H (0-2) % Lymphocytes % (Manual) 22 (20-40) % Monocytes % (Manual) 21 H (0-10) % Platelet Estimate Normal (NORMAL) Plt Clumps, EDTA Present Large Platelets Present Polychromasia Slight Hypochromasia (manual) Slight Anisocytosis (manual) Slight Spherocytes Slight Sodium 144 (132-148) mmol/L Potassium 3.9 (3.6-5.2) mmol/L Chloride 116 H (98-107) mmol/L Carbon Dioxide 18 L (22-30) mmol/L Anion Gap 15 (10-20) BUN 18 (9-20) mg/dL Creatinine 0.8 (0.8-1.5) mg/dL Est GFR ( Amer) > 60 Est GFR (Non-Af Amer) > 60 POC Glucose (mg/dL) 74 (65-110) mg/dL Random Glucose 64 L (75-110) mg/dL Calcium 7.0 L (8.6-10.4) mg/dl Phosphorus 3.6 (2.5-4.5) mg/dL Magnesium 1.8 (1.6-2.3) mg/dL Total Bilirubin 4.5 H (0.2-1.3) mg/dL AST 47 (17-59) U/L ALT < 6 L (21-72) U/L Alkaline Phosphatase 84 (38-126) U/L Total Protein 6.2 L (6.3-8.3) g/dL Albumin 1.9 L (3.5-5.0) g/dL Globulin 4.3 H (2.2-3.9) gm/dL Albumin/Globulin Ratio 0.4 L (1.0-2.1) 09/11/17 09/10/17 09/10/17 Range/Units 05:15 23:36 17:37 WBC (4.8-10.8) K/uL RBC (4.40-5.90) Mil/uL Hgb (12.0-18.0) g/dL Hct (35.0-51.0) % MCV (80.0-94.0) fL MCH (27.0-31.0) pg MCHC (33.0-37.0) g/dL RDW (11.5-14.5) % Plt Count (130-400) K/uL MPV (7.2-11.7) fL Neut % (Auto) (50.0-75.0) % Lymph % (Auto) (20.0-40.0) % [place] % (Auto) (0.0-10.0) % Eos % (Auto) (0.0-4.0) % Baso % (Auto) (0.0-2.0) % Neut # (Auto) (1.8-7.0) K/uL Lymph # (Auto) (1.0-4.3) K/uL [place] # (Auto) (0.0-0.8) K/uL Eos # (Auto) (0.0-0.7) K/uL Baso # (Auto) (0.0-0.2) K/uL Neutrophils % (Manual) (50-75) % Band Neutrophils % (0-2) % Lymphocytes % (Manual) (20-40) % Monocytes % (Manual) (0-10) % Platelet Estimate (NORMAL) Plt Clumps, EDTA Large Platelets Polychromasia Hypochromasia (manual) Anisocytosis (manual) Spherocytes Sodium (132-148) mmol/L Potassium (3.6-5.2) mmol/L Chloride (98-107) mmol/L Carbon Dioxide (22-30) mmol/L Anion Gap (10-20) BUN (9-20) mg/dL Creatinine (0.8-1.5) mg/dL Est GFR ( Amer) Est GFR (Non-Af Amer) POC Glucose (mg/dL) 75 78 78 (65-110) mg/dL Random Glucose (75-110) mg/dL Calcium (8.6-10.4) mg/dl Phosphorus (2.5-4.5) mg/dL Magnesium (1.6-2.3) mg/dL Total Bilirubin (0.2-1.3) mg/dL AST (17-59) U/L ALT (21-72) U/L Alkaline Phosphatase (38-126) U/L Total Protein (6.3-8.3) g/dL Albumin (3.5-5.0) g/dL Globulin (2.2-3.9) gm/dL Albumin/Globulin Ratio (1.0-2.1) Laboratory Results - last 24 hr 09/10/17 09/10/17 09/11/17 17:37 23:36 05:15 WBC RBC Hgb Hct MCV MCH MCHC RDW Plt Count MPV Neut % (Auto) Lymph % (Auto) [place] % (Auto) Eos % (Auto) Baso % (Auto) Neut # (Auto) Lymph # (Auto) [place] # (Auto) Eos # (Auto) Baso # (Auto) Neutrophils % (Manual) Band Neutrophils % Lymphocytes % (Manual) Monocytes % (Manual) Platelet Estimate Plt Clumps, EDTA Large Platelets Polychromasia Hypochromasia (manual) Anisocytosis (manual) Spherocytes Sodium Potassium Chloride Carbon Dioxide Anion Gap BUN Creatinine Est GFR ( Amer) Est GFR (Non-Af Amer) POC Glucose (mg/dL) 78 78 75 Random Glucose Calcium Phosphorus Magnesium Total Bilirubin AST ALT Alkaline Phosphatase Total Protein Albumin Globulin Albumin/Globulin Ratio 09/11/17 09/11/17 09/11/17 06:29 06:29 11:35 WBC 7.5 RBC 2.74 L Hgb 7.8 L Hct 23.4 L MCV 85.2 MCH 28.3 MCHC 33.2 RDW 18.0 H Plt Count 189 MPV 9.9 Neut % (Auto) 54.7 Lymph % (Auto) 21.9 [place] % (Auto) 22.2 H Eos % (Auto) 0.4 Baso % (Auto) 0.8 Neut # (Auto) 4.1 Lymph # (Auto) 1.7 [place] # (Auto) 1.7 H Eos # (Auto) 0.0 Baso # (Auto) 0.1 Neutrophils % (Manual) 53 Band Neutrophils % 4 H Lymphocytes % (Manual) 22 Monocytes % (Manual) 21 H Platelet Estimate Normal Plt Clumps, EDTA Present Large Platelets Present Polychromasia Slight Hypochromasia (manual) Slight Anisocytosis (manual) Slight Spherocytes Slight Sodium 144 Potassium 3.9 Chloride 116 H Carbon Dioxide 18 L Anion Gap 15 BUN 18 Creatinine 0.8 Est GFR ( Amer) > 60 Est GFR (Non-Af Amer) > 60 POC Glucose (mg/dL) 74 Random Glucose 64 L Calcium 7.0 L Phosphorus 3.6 Magnesium 1.8 Total Bilirubin 4.5 H AST 47 ALT < 6 L Alkaline Phosphatase 84 Total Protein 6.2 L Albumin 1.9 L Globulin 4.3 H Albumin/Globulin Ratio 0.4 L Critical Care Progress Note - Nutrition Nutrition: Nutrition Category Date Time Status NPO Diet [DIET] Diets 09/07/17 Dinner Active Assessment/Plan - Assessment and Plan (Free Text) Plan: Above patient seen and examined at bedside. Patient's clinical status remains similar to yesterday. Febrile: suh culture, ID input, WBC remains stable -check dopplers r/o DVT for fevers without any leukocytosis or left shift. Above resident note reviewed and verified. -continue to monitor patient -patient will benefit from LTAC - Date & Time Date: 09/11/17 Time: 14:05"
[2017-09-11] MEDS: Saccharomyces Boulardi 250 mg Cap PO SCH ×2 (11:00→17:12)
[2017-09-11] MEDS: Valproic Acid 250 mg/5 ml UD Cup PEG SCH ×2 (11:00→21:05)
[2017-09-11] MEDS: Multiple Vitamins Oral Solution PO SCH (11:00)
--- NOTE | 2017-09-11 12:34 | CP.PCM.PN ---
Subjective - Date & Time of Evaluation Date of Evaluation: 09/11/17 Time of Evaluation: 11:50 - Subjective Subjective: patient seen and examined Poorly responsive On ventilatory support PRVC mode and remains tachypneic Not tolerating weaning Continue antibiotics Continue nebulizer treatment For LTACH Objective - Vital Signs/Intake and Output Vital Signs (last 24 hours): Temp Pulse Resp BP Pulse Ox 99.2 F 112 H 17 99/65 L 100 09/11/17 08:00 09/11/17 11:02 09/11/17 11:02 09/11/17 11:00 09/11/17 11:02 Intake and Output: 09/11/17 09/11/17 06:59 18:59 Intake Total 1707 250 Output Total 250 Balance 1457 250 - Medications Medications: Current Medications Acetaminophen (Tylenol 325mg Tab) 650 mg PO Q6 PRN PRN Reason: Fever >100.4 F Last Admin: 09/10/17 07:44 Dose: 650 mg Albuterol/Ipratropium (Duoneb 3 Mg/0.5 Mg (3 Ml) Ud) 3 ml INH RQ6 [facility] Last Admin: 09/11/17 07:32 Dose: 3 ml Amantadine HCl (Symmetrel) 100 mg PO DAILY [facility] Last Admin: 09/10/17 09:57 Dose: 100 mg Ascorbic Acid (Vitamin C 500 Mg Tab) 500 mg PO DAILY [facility] Last Admin: 09/11/17 09:19 Dose: 500 mg Carbamazepine (Tegretol) 100 mg PEG Q8 [facility] Last Admin: 09/11/17 05:05 Dose: 100 mg Finasteride (Proscar) 5 mg PO DAILY [facility] Heparin Sodium (Porcine) (Heparin) 5,000 units SC Q12 [facility] Last Admin: 09/11/17 09:18 Dose: 5,000 units Vancomycin/Sodium Chloride (Vancomycin 1 Gm/Ns 200 Ml) 1 gm in 200 mls @ 133 mls/hr IVPB Q24H [facility] PRN Reason: Protocol Stop: 09/11/17 18:01 Last Admin: 09/10/17 18:03 Dose: 133 mls/hr Meropenem 500 mg/ Sodium (Chloride) 100 mls @ 100 mls/hr IVPB Q8H [facility] PRN Reason: Protocol Last Admin: 09/11/17 11:59 Dose: 100 mls/hr Metronidazole (Flagyl) 500 mg PEG TID [facility] PRN Reason: Protocol Last Admin: 09/11/17 11:00 Dose: 500 mg Midodrine (Proamatine) 5 mg PO TID [facility] Last Admin: 09/11/17 09:19 Dose: 5 mg Multivitamins/Vitamin C (Multi-Delyn Liquid) 5 ml PO DAILY [facility] Last Admin: 09/11/17 11:00 Dose: 5 ml Pantoprazole Sodium (Protonix Susp) 40 mg PO DAILY [facility] Last Admin: 09/11/17 09:19 Dose: 40 mg Rosuvastatin Calcium (Crestor) 5 mg PO HS [facility] Last Admin: 09/10/17 21:10 Dose: 5 mg Saccharomyces Boulardii (Florastor) 250 mg PO BID [facility] Last Admin: 09/11/17 11:00 Dose: 250 mg Valproate Sodium (Depakene Oral Soln) 250 mg PEG Q12 [facility] Last Admin: 09/11/17 11:00 Dose: 250 mg Zinc Sulfate (Zinc Sulfate 220 Mg Cap) 220 mg PO DAILY [facility] Last Admin: 09/11/17 09:19 Dose: 220 mg - Labs Labs: 09/11/17 06:29 09/11/17 06:29 PT 22.0 SECONDS (9.7-12.2) H 09/07/17 06:08 INR 2.0 09/07/17 06:08 APTT 43 SECONDS (21-34) H 09/07/17 06:08 Assessment and Plan (1) Respiratory failure Status: Acute (2) Anemia Status: Acute (3) Pneumonia Status: Acute
[2017-09-11] MEDS: Amantadine 50 mg/5 ml Syrup (473 ml) PO SCH (14:02)
[2017-09-11] MEDS: Vancomycin 1 gm/NS 200 ml 1 GM/200 ML BAG IVPB SCH (17:09)
[2017-09-11] MEDS: Acetaminophen 650mg/20.3ml solution UD PO PRN (20:55)
[2017-09-12] MEDS: Albuterol-Ipratrop 3 mg / 0.5 (3 ml) UD INH SCH ×4 (01:05→19:23)
[2017-09-12] MEDS: Meropenem 500 MG in Sodium Chloride 0.9% 100 ML IVPB SCH ×3 (03:10→18:05)
[2017-09-12 06:20] LABS: BASO # 0.1 K/uL (0.0-0.2); BASO % 1.2 % (0.0-2.0); EOS % 0.2 % (0.0-4.0); HEMOGLOBIN 7.3 g/dL (12.0-18.0); LYMPH # 1.9 K/uL (1.0-4.3); LYMPH % 26.9 % (20.0-40.0); MEAN CELL VOLUME 85.1 fL (80.0-94.0); MEAN CORPUSCULAR HEMOGLOBIN 28.4 pg (27.0-31.0); MEAN CORPUSCULAR HGB CONC 33.3 g/dL (33.0-37.0); MEAN PLATELET VOLUME 9.1 fL (7.2-11.7); MONO # 1.7 K/uL (0.0-0.8); MONO % 23.9 % (0.0-10.0); NEUT # 3.4 K/uL (1.8-7.0); NEUT % 47.8 % (50.0-75.0); NRBC % 0.1 % (0.0-2.0); PLATELET COUNT 281 K/uL (130-400); RBC 2.57 Mil/uL (4.40-5.90); RED CELL DISTRIBUTION WIDTH 17.7 % (11.5-14.5); WHITE BLOOD COUNT 7.1 K/uL (4.8-10.8)
[2017-09-12] MEDS: carBAMazepine Chew Tab 100 MG Chew Tab PEG SCH ×3 (06:28→21:27)
[2017-09-12 06:38] LABS: ALB/GLOB RATIO 0.4 (1.0-2.1); ALBUMIN 1.9 g/dL (3.5-5.0); ALT/SGPT 16 U/L (21-72); AST/SGOT 36 U/L (17-59); BLOOD UREA NITROGEN 18 mg/dL (9-20); CALCIUM 6.9 mg/dl (8.6-10.4); GFR AFRICAN-AMERICAN > 60; GFR NON-AFRICAN AMERICAN > 60
[2017-09-12 08:26] LABS: ANISOCYTOSIS SLIGHT; BANDS 4 % (0-2); LYMPHOCYTE 25 % (20-40); MONOCYTE 21 % (0-10); NEUTROPHIL 50 % (50-75); PLATELET ESTIMATE NORMAL (NORMAL); TOTAL CELLS COUNTED 100
[2017-09-12 08:27] LABS: HYPOCHROMIC SLIGHT; LARGE PLATELETS PRESENT; MICROCYTOSIS SLIGHT; OVALOCYTES SLIGHT
[2017-09-12 08:28] LABS: SPHEROCYTES SLIGHT
[2017-09-12] MEDS: Saccharomyces Boulardi 250 mg Cap PO SCH ×2 (10:11→17:02)
[2017-09-12] MEDS: Valproic Acid 250 mg/5 ml UD Cup PEG SCH ×2 (10:11→21:27)
[2017-09-12] MEDS: Multiple Vitamins Oral Solution PO SCH (10:12)
[2017-09-12] MEDS: Amantadine 50 mg/5 ml Syrup (473 ml) PO SCH (10:12)
[2017-09-12] MEDS: Pantoprazole 40 mg Susp UD PO SCH (10:12)
--- NOTE | 2017-09-12 11:05 | CP.PCM.PN ---
"Subjective - Date & Time of Evaluation Date of Evaluation: 09/12/17 Time of Evaluation: 10:56 - Subjective Subjective: Patient seen, no overnight events, temp range reviewed, patient has been tachypnic, on vent, s/p trache, s/p peg, negative studies for DVT, CXR today reviewed, shows b/l pl effusion, again noticed volume loss and surg on the right side with chronic changes affecting right apex. Abx changes reviewed on vanco, meropenium, and oral flagyl. Labs reviewed chronic low albumin which also reflects in lower intravascular volume, 3rd spacing on the clinical exam. Patient is other lo only minimally responsive, no communication. Plan has been for [facility], but seems unlikely to recover and chances of any meaning full recovery suggest Hospice, will d/w social service as well. 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 Admitted to ICU, intubated due to respiratory failure. Code Sepsis 2/2 Mycoplasma Pneumonia 08/27/17, Entercolitis. S/P bronchoscopy 09/03/17. S/P Tracheostomy 09/07/17. Pending LTAC placement. Plan: Neuro: GCS: 10T Sedation: None A: Severe Dementia, Hx of Seizure Home Carbamazepine 100mg Q8 | Home Valproic Acid 250mg PEG QID Changed to Q12H Amantadine 100mg PO Daily per Neuro Cardio: A: HxHTN, Hx of TIA, HLD Crestor 5mg PO HS A: Hypotension - Started Midodrine 5mg PO TID Pulm: A: Hypoxic Res. Failure, Asthma, COPD, Mycoplasma Pneumonia + 08/27/17 CXR (Admission): Stable postsurgical changes in the right lung with low lung volume and shift of mediastinal to the right. No acute findings. CXR (09/03): No significant interval change in right upper lobe cystic changes/ bulla and right pleural effusion. Stable position of endotracheal tube. S/P bronchoscopy 09/03/17 - bronchial washings - negative for any growth S/P Tracheostomy 09/07/[address] Celestine Monae Scheduled Endo A: Hypoglycemia (Stable) GI: A: Enterocolitis CT chest Abd/Pelvis (08/27): Enterocolits; ascities;mild bladder wall thickening with air in the bladder, iatrogenic versus infectious. -Flagyl started 08/31/17 A: Elevated T. Bili - Continue to monitor, unremarkable on CT Scan Renal: A: Hypocalcemia, corrected calcium - within normal limits, Hypokalemia Replace electrolytes PRN Heme/Onc: A: Normocytic Anemia HgB stable at new baseline of low 8s Transfused 1 unit throughout admission Transfused 2nd unit 09/07/17 Stool Occult Blood - NEGATIVE ID A: Code Sepsis, Leukocytosis (Resolved) ID on Consult, Recs Appreciated - Dr. Muñoz Cultures (08/24, 08/31) Blood - NEGATIVE to date | Urine - NEGATIVE to date | Sputum - Normal Oral Kim | MRSA - NEGATIVE Wound Cultures - Coagulase Neg Staph, Likely normal Skin Kim Mycoplasma Pneumonia IgM - positive, Patient has chronic Mycoplasma IgM. This was positive on 08/03/17 AFB Sputum Culture x 2 negative, Aspergillus AB and Antigen, H. Galactomannan Antigen, Histoplasma AB,- ALL NEGATIVE, Quant Gold - PENDING Antibiotics: Stopped - Moxifloxacin 400mg Q24H (09/01-09/08). stopped Micafungin 100mg Q24H started on 09/01 - Switched to doxy 100 Q12 09/08/17- DC on 09/10/17 and continued Flagyl 500mg Q8H started 08/31 (changed to PO through peg), continued Vanco 1 gram Q24 09/06 - spiked 101F 09/05/17 at 12:30pm - was not suh cultured, low grade fever 100.6F on 09/08, 100.9 5:30am 09/09 - pending repeat cultures 09/07 and 09/08 A: Left Foot ??Osteo/ Soft tissue infection - Continued to be febrile 101.1 8am 09/10/17 - Abx regimen changed to Meropenem 500mg IVP Q8H, Continued Vanco 1 gram Q24, flagyl 500mg PEG TID - Added vitamin C and zinc - F/U wound culture : A: Urinary Retention - Started Proscar 5mg PO Integumentary A: Left Lower ext wounds - Wound Care Prophylaxis - Protonix - Lovenox (Held) due to tracheostomy 09/07/17 - Diet: Tube Feeding - Jevity 1.5 - Lines: Right IJ Central Line removed, placed Left PICC line 09/06/17, consent retrieved from Elizabet legal guardian [phone] Disposition: Pending placement in LTAC Objective - Vital Signs/Intake and Output Vital Signs (last 24 hours): Temp Pulse Resp BP Pulse Ox 99.8 F H 98 H 22 90/45 L 100 09/12/17 08:00 09/12/17 09:00 09/12/17 09:00 09/12/17 09:00 09/12/17 09:00 Intake and Output: 09/12/17 09/12/17 06:59 18:59 Intake Total 700 150 Output Total 275 85 Balance 425 65 - Medications Medications: Current Medications Acetaminophen (Tylenol 650mg/20.3ml Solution Ud) 650 mg PO Q6 PRN PRN Reason: Fever >100.4 F Last Admin: 09/11/17 20:55 Dose: 650 mg Albuterol/Ipratropium (Duoneb 3 Mg/0.5 Mg (3 Ml) Ud) 3 ml INH RQ6 [facility] Last Admin: 09/12/17 07:44 Dose: 3 ml Amantadine HCl (Symmetrel) 100 mg PO DAILY [facility] Last Admin: 09/12/17 10:12 Dose: 100 mg Ascorbic Acid (Vitamin C 500 Mg Tab) 500 mg PO DAILY [facility] Last Admin: 09/12/17 10:13 Dose: 500 mg Carbamazepine (Tegretol) 100 mg PEG Q8 [facility] Last Admin: 09/12/17 06:28 Dose: 100 mg Finasteride (Proscar) 5 mg PO DAILY [facility] Last Admin: 09/12/17 10:12 Dose: 5 mg Heparin Sodium (Porcine) (Heparin) 5,000 units SC Q12 [facility] Last Admin: 09/12/17 10:11 Dose: 5,000 units Meropenem 500 mg/ Sodium (Chloride) 100 mls @ 100 mls/hr IVPB Q8H [facility] PRN Reason: Protocol Last Admin: 09/12/17 10:27 Dose: 100 mls/hr Metronidazole (Flagyl) 500 mg PEG TID [facility] PRN Reason: Protocol Last Admin: 09/12/17 10:11 Dose: 500 mg Midodrine (Proamatine) 5 mg PO TID [facility] Last Admin: 09/12/17 10:12 Dose: 5 mg Multivitamins/Vitamin C (Multi-Delyn Liquid) 5 ml PO DAILY [facility] Last Admin: 09/12/17 10:12 Dose: 5 ml Pantoprazole Sodium (Protonix Susp) 40 mg PO DAILY [facility] Last Admin: 09/12/17 10:12 Dose: 40 mg Rosuvastatin Calcium (Crestor) 5 mg PO HS [facility] Last Admin: 09/11/17 21:05 Dose: 5 mg Saccharomyces Boulardii (Florastor) 250 mg PO BID [facility] Last Admin: 09/12/17 10:11 Dose: 250 mg Valproate Sodium (Depakene Oral Soln) 250 mg PEG Q12 [facility] Last Admin: 09/12/17 10:11 Dose: 250 mg Zinc Sulfate (Zinc Sulfate 220 Mg Cap) 220 mg PO DAILY [facility] Last Admin: 09/12/17 10:13 Dose: 220 mg - Labs Labs: 09/12/17 06:10 09/12/17 06:12 PT 22.0 SECONDS (9.7-12.2) H 09/07/17 06:08 INR 2.0 09/07/17 06:08 APTT 43 SECONDS (21-34) H 09/07/17 06:08"
--- NOTE | 2017-09-12 11:33 | RAD ---
HISTORY: s/p trach, eval for congetion COMPARISON: Comparison is made with 09/11/2027 FINDINGS: LUNGS: Interval appearance of hazy opacity and possible infiltrate at the left lower lung since the previous exam may represent atelectasis or pneumonia. Otherwise no significant interval change. The right lung is small in size. The tracheostomy tube is seen in place. PLEURA: Possible small bilateral pleural effusions. CARDIOVASCULAR: Normal. OSSEOUS STRUCTURES: Postsurgical changes and internal fixation are noted at the right chest wall. VISUALIZED UPPER ABDOMEN: Normal. OTHER FINDINGS: None. IMPRESSION: New heterogeneous opacity at the left lower lung could represent atelectasis or pneumonia. Otherwise no interval change.
--- NOTE | 2017-09-12 17:28 | CP.PCM.PN ---
Subjective - Date & Time of Evaluation Date of Evaluation: 09/11/17 Time of Evaluation: 19:00 - Subjective Subjective: patient seen and examined Poorly responsive On ventilatory support PRVC mode and remains tachypneic Not tolerating weaning Continue antibiotics Continue nebulizer treatment For LTACH Objective - Vital Signs/Intake and Output Vital Signs (last 24 hours): Temp Pulse Resp BP Pulse Ox 98.6 F 96 H 28 H 119/67 100 09/12/17 17:00 09/12/17 17:00 09/12/17 17:00 09/12/17 17:00 09/12/17 17:00 Intake and Output: 09/12/17 09/12/17 06:59 18:59 Intake Total 700 1225 Output Total 275 270 Balance 425 955 - Medications Medications: Current Medications Acetaminophen (Tylenol 650mg/20.3ml Solution Ud) 650 mg PO Q6 PRN PRN Reason: Fever >100.4 F Last Admin: 09/11/17 20:55 Dose: 650 mg Albuterol/Ipratropium (Duoneb 3 Mg/0.5 Mg (3 Ml) Ud) 3 ml INH RQ6 [facility] Last Admin: 09/12/17 13:13 Dose: 3 ml Amantadine HCl (Symmetrel) 100 mg PO DAILY [facility] Last Admin: 09/12/17 10:12 Dose: 100 mg Ascorbic Acid (Vitamin C 500 Mg Tab) 500 mg PO DAILY [facility] Last Admin: 09/12/17 10:13 Dose: 500 mg Carbamazepine (Tegretol) 100 mg PEG Q8 [facility] Last Admin: 09/12/17 13:36 Dose: 100 mg Finasteride (Proscar) 5 mg PO DAILY [facility] Last Admin: 09/12/17 10:12 Dose: 5 mg Heparin Sodium (Porcine) (Heparin) 5,000 units SC Q12 [facility] Meropenem 500 mg/ Sodium (Chloride) 100 mls @ 100 mls/hr IVPB Q8H [facility] PRN Reason: Protocol Last Admin: 09/12/17 10:27 Dose: 100 mls/hr Metronidazole (Flagyl) 500 mg PEG TID [facility] PRN Reason: Protocol Last Admin: 09/12/17 17:02 Dose: 500 mg Midodrine (Proamatine) 5 mg PO TID [facility] Last Admin: 09/12/17 17:02 Dose: 5 mg Multivitamins/Vitamin C (Multi-Delyn Liquid) 5 ml PO DAILY [facility] Last Admin: 09/12/17 10:12 Dose: 5 ml Pantoprazole Sodium (Protonix Susp) 40 mg PO DAILY [facility] Rosuvastatin Calcium (Crestor) 5 mg PO HS [facility] Last Admin: 09/11/17 21:05 Dose: 5 mg Saccharomyces Boulardii (Florastor) 250 mg PO BID [facility] Last Admin: 09/12/17 17:02 Dose: 250 mg Valproate Sodium (Depakene Oral Soln) 250 mg PEG Q12 [facility] Last Admin: 09/12/17 10:11 Dose: 250 mg Zinc Sulfate (Zinc Sulfate 220 Mg Cap) 220 mg PO DAILY [facility] Last Admin: 09/12/17 10:13 Dose: 220 mg - Labs Labs: 09/12/17 06:10 09/12/17 06:12 PT 22.0 SECONDS (9.7-12.2) H 09/07/17 06:08 INR 2.0 09/07/17 06:08 APTT 43 SECONDS (21-34) H 09/07/17 06:08 Assessment and Plan (1) Sepsis Status: Acute (2) Fever Status: Acute (3) Seizure disorder Status: Acute (4) COPD (chronic obstructive pulmonary disease) Status: Chronic (5) PVD (peripheral vascular disease) Status: Chronic (6) Respiratory failure Status: Acute (7) Status post tracheostomy Status: Acute (8) Pneumonia Status: Acute
--- NOTE | 2017-09-12 17:31 | CP.PCM.PN ---
Subjective - Date & Time of Evaluation Date of Evaluation: 09/12/17 Time of Evaluation: 20:00 - Subjective Subjective: patient seen and examined Poorly responsive On ventilatory support PRVC mode and remains tachypneic Not tolerating weaning Continue antibiotics Continue nebulizer treatment For LTACH Objective - Vital Signs/Intake and Output Vital Signs (last 24 hours): Temp Pulse Resp BP Pulse Ox 98.6 F 96 H 28 H 119/67 100 09/12/17 17:00 09/12/17 17:00 09/12/17 17:00 09/12/17 17:00 09/12/17 17:00 Intake and Output: 09/12/17 09/12/17 06:59 18:59 Intake Total 700 1225 Output Total 275 270 Balance 425 955 - Medications Medications: Current Medications Acetaminophen (Tylenol 650mg/20.3ml Solution Ud) 650 mg PO Q6 PRN PRN Reason: Fever >100.4 F Last Admin: 09/11/17 20:55 Dose: 650 mg Albuterol/Ipratropium (Duoneb 3 Mg/0.5 Mg (3 Ml) Ud) 3 ml INH RQ6 [facility] Last Admin: 09/12/17 13:13 Dose: 3 ml Amantadine HCl (Symmetrel) 100 mg PO DAILY [facility] Last Admin: 09/12/17 10:12 Dose: 100 mg Ascorbic Acid (Vitamin C 500 Mg Tab) 500 mg PO DAILY [facility] Last Admin: 09/12/17 10:13 Dose: 500 mg Carbamazepine (Tegretol) 100 mg PEG Q8 [facility] Last Admin: 09/12/17 13:36 Dose: 100 mg Finasteride (Proscar) 5 mg PO DAILY [facility] Last Admin: 09/12/17 10:12 Dose: 5 mg Heparin Sodium (Porcine) (Heparin) 5,000 units SC Q12 [facility] Meropenem 500 mg/ Sodium (Chloride) 100 mls @ 100 mls/hr IVPB Q8H [facility] PRN Reason: Protocol Last Admin: 09/12/17 10:27 Dose: 100 mls/hr Metronidazole (Flagyl) 500 mg PEG TID [facility] PRN Reason: Protocol Last Admin: 09/12/17 17:02 Dose: 500 mg Midodrine (Proamatine) 5 mg PO TID [facility] Last Admin: 09/12/17 17:02 Dose: 5 mg Multivitamins/Vitamin C (Multi-Delyn Liquid) 5 ml PO DAILY [facility] Last Admin: 09/12/17 10:12 Dose: 5 ml Pantoprazole Sodium (Protonix Susp) 40 mg PO DAILY [facility] Rosuvastatin Calcium (Crestor) 5 mg PO HS [facility] Last Admin: 09/11/17 21:05 Dose: 5 mg Saccharomyces Boulardii (Florastor) 250 mg PO BID [facility] Last Admin: 09/12/17 17:02 Dose: 250 mg Valproate Sodium (Depakene Oral Soln) 250 mg PEG Q12 [facility] Last Admin: 09/12/17 10:11 Dose: 250 mg Zinc Sulfate (Zinc Sulfate 220 Mg Cap) 220 mg PO DAILY [facility] Last Admin: 09/12/17 10:13 Dose: 220 mg - Labs Labs: 09/12/17 06:10 09/12/17 06:12 PT 22.0 SECONDS (9.7-12.2) H 09/07/17 06:08 INR 2.0 09/07/17 06:08 APTT 43 SECONDS (21-34) H 09/07/17 06:08 Assessment and Plan (1) Sepsis Status: Acute (2) Fever Status: Acute (3) Seizure disorder Status: Acute (4) COPD (chronic obstructive pulmonary disease) Status: Chronic (5) PVD (peripheral vascular disease) Status: Chronic (6) Respiratory failure Status: Acute (7) Status post tracheostomy Status: Acute (8) Pneumonia Status: Acute
[2017-09-12] MEDS: Dextrose 50% SYRINGE Inj (50 ml) IV PRN (18:40)
--- NOTE | 2017-09-12 19:44 | CP.PCM.PN ---
Subjective - Date & Time of Evaluation Date of Evaluation: 09/12/17 Time of Evaluation: 03:45 - Subjective Subjective: dictated Objective - Vital Signs/Intake and Output Vital Signs (last 24 hours): Temp Pulse Resp BP Pulse Ox 98.6 F 97 H 30 H 88/57 L 100 09/12/17 17:00 09/12/17 19:00 09/12/17 19:00 09/12/17 19:00 09/12/17 19:00 Intake and Output: 09/12/17 09/13/17 18:59 06:59 Intake Total 1625 50 Output Total 300 Balance 1325 50 - Medications Medications: Current Medications Acetaminophen (Tylenol 650mg/20.3ml Solution Ud) 650 mg PO Q6 PRN PRN Reason: Fever >100.4 F Last Admin: 09/11/17 20:55 Dose: 650 mg Albuterol/Ipratropium (Duoneb 3 Mg/0.5 Mg (3 Ml) Ud) 3 ml INH RQ6 [facility] Last Admin: 09/12/17 19:23 Dose: 3 ml Amantadine HCl (Symmetrel) 100 mg PO DAILY [facility] Last Admin: 09/12/17 10:12 Dose: 100 mg Ascorbic Acid (Vitamin C 500 Mg Tab) 500 mg PO DAILY [facility] Last Admin: 09/12/17 10:13 Dose: 500 mg Carbamazepine (Tegretol) 100 mg PEG Q8 [facility] Last Admin: 09/12/17 13:36 Dose: 100 mg Dextrose (Dextrose 50% Inj) 0 ml IV STAT PRN; Protocol PRN Reason: Hypoglycemia Protocol Last Admin: 09/12/17 18:40 Dose: 50 ml Finasteride (Proscar) 5 mg PO DAILY [facility] Last Admin: 09/12/17 10:12 Dose: 5 mg Heparin Sodium (Porcine) (Heparin) 5,000 units SC Q12 [facility] Meropenem 500 mg/ Sodium (Chloride) 100 mls @ 100 mls/hr IVPB Q8H [facility] PRN Reason: Protocol Last Admin: 09/12/17 18:05 Dose: 100 mls/hr Metronidazole (Flagyl) 500 mg PEG TID [facility] PRN Reason: Protocol Last Admin: 09/12/17 17:02 Dose: 500 mg Midodrine (Proamatine) 5 mg PO TID [facility] Last Admin: 09/12/17 17:02 Dose: 5 mg Multivitamins/Vitamin C (Multi-Delyn Liquid) 5 ml PO DAILY [facility] Last Admin: 09/12/17 10:12 Dose: 5 ml Pantoprazole Sodium (Protonix Susp) 40 mg PO DAILY [facility] Rosuvastatin Calcium (Crestor) 5 mg PO HS [facility] Last Admin: 09/11/17 21:05 Dose: 5 mg Saccharomyces Boulardii (Florastor) 250 mg PO BID [facility] Last Admin: 09/12/17 17:02 Dose: 250 mg Valproate Sodium (Depakene Oral Soln) 250 mg PEG Q12 [facility] Last Admin: 09/12/17 10:11 Dose: 250 mg Zinc Sulfate (Zinc Sulfate 220 Mg Cap) 220 mg PO DAILY [facility] Last Admin: 09/12/17 10:13 Dose: 220 mg - Labs Labs: 09/12/17 06:10 09/12/17 06:12 PT 22.0 SECONDS (9.7-12.2) H 09/07/17 06:08 INR 2.0 09/07/17 06:08 APTT 43 SECONDS (21-34) H 09/07/17 06:08
[2017-09-12] MEDS ORDERED: Albumin Human 25% (12.5 gm/50 ml) IV ONE (23:17)
--- NOTE | 2017-09-13 00:09 | PN ---
DATE: 09/12/2017 INFECTIOUS DISEASE FOLLOWUP SUBJECTIVE: The patient remains under vent. He is still very lethargic. I have not seen his eyes ever open. Status post trach. Breathing is little rapid. He has rhonchi bilaterally. PHYSICAL EXAMINATION: GENERAL: T-max is 98.6, pulse 96, blood pressure is slightly better at this time 119/67, respirations are 28; and his blood pressure fluctuates a lot, remains mostly in the late 90s to early 80s, but when I saw, it was 100. ABDOMEN: Soft. Nontender. He has a PEG tube. EXTREMITIES: Remain with edema. He has a right AKA stump and a left leg which has edema and also has lateral malleolus decubitus plus heel, which is necrotic at this time, unstageable hence I have ordered a bone scan. LABORATORY DATA: White count is 10.1, hemoglobin is 7.3, hematocrit 21.8, platelet count is 281, bands are 4, monocytes are 21. Chlorides 116, CO2 is 19, creatinine is 0.9, and total bilirubin is 4.3. Foot culture is negative 24 hours, but we will have to wait for next few days to see what grows out of it. So at this time, the patient is on amantadine, ascorbic acid, vitamin C, Tegretol, dextrose, Proscar, heparin subcu for DVT, and he is on meropenem, midodrine, multivitamins for the skin healing, and he is on respiratory treatments and meropenem and Crestor, Saccharomyces, valproic acid and Zinc sulphate. He is on meropenem and Flagyl. I do not know what happened to the vancomycin. His creatinine is 0.9, chlorides are 116, CO2 is 19. He was on vancomycin. We will see if the levels were high, and we held it and levels. Vancomycin, I do not see on the list, but at this time if he remains afebrile on these medications, we will continue Merrem as well as Flagyl at this time. We had made Flagyl, we had the PEG, and I am waiting for the bone scan to rule out osteomyelitis of the left heel. He does have a PICC line in the left arm and remains edematous. He is on vancomycin every 24 hours, so he is on vancomycin also. At this time, he is status post tracheostomy 09/07/2017. He was admitted with a history of severe dementia, arthritis, asthma, COPD, seizure disorder, right AKA from shelter due to fevers. He has mycoplasma IgM positive. He has enterocolitis, status post bronchoscopy on 09/03/2017 and status post PEG 09/07/2017 and has left heel ulcer, and his cultures have been all negative, but he was running fevers and we are looking for left heel for any osteomyelitis at this time. Bladimir Muñoz MD
[2017-09-13] MEDS: Albuterol-Ipratrop 3 mg / 0.5 (3 ml) UD INH SCH ×4 (01:03→19:08)
[2017-09-13] MEDS: Meropenem 500 MG in Sodium Chloride 0.9% 100 ML IVPB SCH ×3 (03:11→18:14)
[2017-09-13] MEDS: carBAMazepine Chew Tab 100 MG Chew Tab PEG SCH ×3 (05:54→21:11)
[2017-09-13 06:28] LABS: BASO # 0.1 K/uL (0.0-0.2); BASO % 1.4 % (0.0-2.0); EOS % 0.1 % (0.0-4.0); HEMOGLOBIN 8.7 g/dL (12.0-18.0); LYMPH # 1.7 K/uL (1.0-4.3); MEAN CELL VOLUME 86.9 fL (80.0-94.0); MEAN CORPUSCULAR HEMOGLOBIN 28.7 pg (27.0-31.0); MEAN PLATELET VOLUME 9.2 fL (7.2-11.7); MONO # 1.3 K/uL (0.0-0.8); MONO % 21.3 % (0.0-10.0); NEUT % 49.2 % (50.0-75.0); NRBC % 0.1 % (0.0-2.0); PLATELET COUNT 278 K/uL (130-400); RBC 3.02 Mil/uL (4.40-5.90); RED CELL DISTRIBUTION WIDTH 17.9 % (11.5-14.5); WHITE BLOOD COUNT 6.1 K/uL (4.8-10.8)
[2017-09-13 06:43] LABS: ALB/GLOB RATIO 0.5 (1.0-2.1); ALBUMIN 2.3 g/dL (3.5-5.0); ALT/SGPT 14 U/L (21-72); AST/SGOT 40 U/L (17-59); BLOOD UREA NITROGEN 18 mg/dL (9-20); CALCIUM 7.1 mg/dl (8.6-10.4); GFR AFRICAN-AMERICAN > 60; GFR NON-AFRICAN AMERICAN > 60
[2017-09-13 06:43] LABS: ABG ALLEN TEST POS; ARTERIAL BLOOD GAS HCO3 19.9 mmol/L (21-28); ARTERIAL BLOOD GAS HEMOGLOBIN 9.5 g/dL (11.7-17.4); ARTERIAL BLOOD GAS O2 SAT 100.3 % (95-98); ARTERIAL BLOOD GAS PCO2 32 mm/Hg (35-45); ARTERIAL BLOOD GAS PH 7.36 (7.35-7.45); ARTERIAL BLOOD GAS PO2 102 mm/Hg (80-100); ARTERIAL BLOOD GAS TCO2 19.1 mmol/L (22-28)
[2017-09-13] MEDS ORDERED: Valproic Acid 250 mg/5 ml UD Cup PO ONE (06:47)
--- NOTE | 2017-09-13 06:48 | CP.PCM.PN ---
Subjective - Date & Time of Evaluation Date of Evaluation: 09/13/17 Time of Evaluation: 06:48 - Subjective Subjective: Mr. Cordero was seen and examined at the bedside in ICU. He remains on mechanical ventilator on PRVC mode via trach with tachypneic rr ranges from 30- 40's. ICU tobacco sieve operator made aware with orders, lethargic.Pupils sluggishly reactive 3 mm on the left and 2 mm on the right, responsive to pain stimuli, and opens eyes spontaneously.His bilateral upper extremities are edematous with a dependent periorbital edema on his right side. Latest valproic level is 31.1 and tegretol level 11.8.There was no untoward events overnight. Objective - Vital Signs/Intake and Output Vital Signs (last 24 hours): Temp Pulse Resp BP Pulse Ox 99.1 F 106 H 31 H 107/59 L 100 09/13/17 00:00 09/13/17 06:00 09/13/17 06:00 09/13/17 06:00 09/13/17 06:00 Intake and Output: 09/12/17 09/13/17 18:59 06:59 Intake Total 1625 1155 Output Total 300 300 Balance 1325 855 - Medications Medications: Current Medications Acetaminophen (Tylenol 650mg/20.3ml Solution Ud) 650 mg PO Q6 PRN PRN Reason: Fever >100.4 F Last Admin: 09/11/17 20:55 Dose: 650 mg Albuterol/Ipratropium (Duoneb 3 Mg/0.5 Mg (3 Ml) Ud) 3 ml INH RQ6 [facility] Last Admin: 09/13/17 01:03 Dose: 3 ml Amantadine HCl (Symmetrel) 100 mg PO DAILY [facility] Last Admin: 09/12/17 10:12 Dose: 100 mg Ascorbic Acid (Vitamin C 500 Mg Tab) 500 mg PO DAILY [facility] Last Admin: 09/12/17 10:13 Dose: 500 mg Carbamazepine (Tegretol) 100 mg PEG Q8 [facility] Last Admin: 09/13/17 05:54 Dose: 100 mg Dextrose (Dextrose 50% Inj) 0 ml IV STAT PRN; Protocol PRN Reason: Hypoglycemia Protocol Last Admin: 09/12/17 18:40 Dose: 50 ml Finasteride (Proscar) 5 mg PO DAILY [facility] Last Admin: 09/12/17 10:12 Dose: 5 mg Heparin Sodium (Porcine) (Heparin) 5,000 units SC Q12 [facility] Last Admin: 09/12/17 21:27 Dose: 5,000 units Meropenem 500 mg/ Sodium (Chloride) 100 mls @ 100 mls/hr IVPB Q8H [facility] PRN Reason: Protocol Last Admin: 09/13/17 03:11 Dose: 100 mls/hr Metronidazole (Flagyl) 500 mg PEG TID [facility] PRN Reason: Protocol Last Admin: 09/12/17 17:02 Dose: 500 mg Midodrine (Proamatine) 5 mg PO TID [facility] Last Admin: 09/12/17 17:02 Dose: 5 mg Multivitamins/Vitamin C (Multi-Delyn Liquid) 5 ml PO DAILY [facility] Last Admin: 09/12/17 10:12 Dose: 5 ml Pantoprazole Sodium (Protonix Susp) 40 mg PO DAILY [facility] Rosuvastatin Calcium (Crestor) 5 mg PO HS [facility] Last Admin: 09/12/17 21:27 Dose: 5 mg Saccharomyces Boulardii (Florastor) 250 mg PO BID [facility] Last Admin: 09/12/17 17:02 Dose: 250 mg Valproate Sodium (Depakene Oral Soln) 250 mg PEG Q12 [facility] Last Admin: 09/12/17 21:27 Dose: 250 mg Zinc Sulfate (Zinc Sulfate 220 Mg Cap) 220 mg PO DAILY [facility] Last Admin: 09/12/17 10:13 Dose: 220 mg - Labs Labs: 09/13/17 06:11 09/13/17 06:12 PT 22.0 SECONDS (9.7-12.2) H 09/07/17 06:08 INR 2.0 09/07/17 06:08 APTT 43 SECONDS (21-34) H 09/07/17 06:08 - Constitutional Appears: Chronically Ill - Head Exam Head Exam: NORMAL INSPECTION - Eye Exam Pupil Exam: PERRL - Neurological Exam Neuro motor strength exam: Left Upper Extremity: 2/1, Right Upper Extremity: 2/1 , Left Lower Extremity: 2/1, Right Lower Extremity: 0 (right AKA) Additional comments: Lethargic but moves his extremities spontaneously. Assessment and Plan (1) Toxic metabolic encephalopathy Assessment & Plan: Case discussed with Dr. Zacarias, continue all current medical regimen. Recommend to load 1000 mg via peg for one dose and maintain all current AED dose. Recommend any underlying electrolyte abnormalities. Status: Acute
[2017-09-13 07:56] LABS: ANISOCYTOSIS SLIGHT; HYPOCHROMIC SLIGHT; LYMPHOCYTE 21 % (20-40); MONOCYTE 17 % (0-10); NEUTROPHIL 62 % (50-75); PLATELET ESTIMATE NORMAL (NORMAL); POLYCHROMIC SLIGHT; TOTAL CELLS COUNTED 100
[2017-09-13 07:57] LABS: TARGET CELLS SLIGHT
--- NOTE | 2017-09-13 08:15 | RAD ---
Chest x-ray single frontal view History: Tachypnea. Comparison: 09/12/2017 Findings: Postsurgical changes and internal fixation are noted at the right chest wall. Deformities of several right lateral ribs. Persistent prominent consolidative opacification in the right upper to mid lung zone with prominent cystic changes. Diffuse increased interstitial lung markings throughout remainder of the right lung. Persistent hazy opacification of the left mid to lower lung zone. Tortuous ectatic aorta. Cardiomegaly. Lines and tubes in stable position. Patient is rotated, limiting evaluation of the tracheostomy tube. Degenerative changes in the spine. Impression: No significant interval change.
--- NOTE | 2017-09-13 10:17 | CP.CCUPN ---
"<JarvisnicholasTita - Last Filed: 09/13/17 10:14> CCU Subjective - Physician Review Subjective (Free Text): Patient was seen and examined at bedside. Remains on PRVC continued Rate 15, FiO2 40%, PEEP 5. Patient remains sugglish, responds to pain. ROS unattainable. S/P tracheostomy 09/07/17. Dr. Eli will speak to Elizabet in regards to the goals of care for this patient. For now, no further CXRs, ABGs, or imaging - pending ultimate decision from legal guardian about placing patient [facility] care. CCU Objective - Vital Signs / Intake & Output Vital Signs (Last 4 hours): Vital Signs Temp Pulse Resp BP Pulse Ox 09/13/17 08:00 99.9 F H 108 H 32 H 96/57 L 100 09/13/17 07:00 105 H 31 H 100 Intake and Output (Last 8hrs): Intake & Output 09/12/17 09/13/17 09/13/17 22:59 06:59 14:59 Intake Total 1175 855 50 Output Total 195 205 30 Balance 980 650 20 Weight 169 lb 1.513 oz Intake: Intake, IV Amount 100 100 Left Distal Port PICC 100 100 Tube Feeding 400 325 50 Blood Product 325 Red Blood Cells Cpd As1 325 Lr Unit [id number] Other 350 430 Output: Urine 95 205 30 Urethral (Brown) 95 205 30 Stool 100 Other: # Bowel Movements 1 - Physical Exam Head: Positive for: Atraumatic, Normocephalic Pupils: Positive for: Sluggish Mouth: Positive for: Dry. Negative for: Moist Mucous Membranes Neck: Positive for: Other (tracheostomy ) Respiratory/Chest: Positive for: Clear to Auscultation, Decreased Breath Sounds (RUL ), Other (Intubated) Cardiovascular: Positive for: Normal S1, S2. Negative for: Tachycardic Abdomen: Positive for: Normal Bowel Sounds. Negative for: Distention Neurological: Negative for: GCS=15 (10T) Skin: Positive for: Warm, Dry, Normal Color. Negative for: Rashes Psychiatric: Negative for: Alert - Medications Active Medications: Active Medications Generic Name Dose Route Start Last Admin Trade Name Freq PRN Reason Stop Dose Admin Acetaminophen 650 mg 09/11/17 20:30 09/11/17 20:55 Tylenol 650mg/20.3ml Solution Ud PO 650 mg Q6 PRN Administration Fever >100.4 F Albuterol/Ipratropium 3 ml 08/28/17 08:00 09/13/17 07:40 Duoneb 3 Mg/0.5 Mg (3 Ml) Ud INH 3 ml RQ6 AMY Administration Amantadine HCl 100 mg 09/05/17 10:00 09/12/17 10:12 Symmetrel PO 100 mg DAILY AMY Administration Ascorbic Acid 500 mg 09/10/17 10:00 09/12/17 10:13 Vitamin C 500 Mg Tab PO 500 mg DAILY AMY Administration Carbamazepine 100 mg 08/24/17 22:00 09/13/17 05:54 Tegretol PEG 100 mg Q8 AMY Administration Dextrose 0 ml 09/12/17 18:15 09/12/17 18:40 Dextrose 50% Inj IV 50 ml STAT PRN Administration Hypoglycemia Protocol Protocol Finasteride 5 mg 09/11/17 10:00 09/12/17 10:12 Proscar PO 5 mg DAILY AMY Administration Heparin Sodium (Porcine) 5,000 units 09/12/17 22:00 09/12/17 21:27 Heparin SC 5,000 units Q12 AMY Administration Meropenem 500 mg/ Sodium 100 mls @ 100 mls/hr 09/10/17 11:00 09/13/17 03:11 Chloride IVPB 100 mls/hr Q8H AMY Administration Protocol Vancomycin/Sodium Chloride 1 gm in 200 mls @ 133 mls/hr 09/13/17 10:00 Vancomycin 1 Gm/Ns 200 Ml IVPB 09/18/17 10:01 DAILY AMY Protocol Metronidazole 500 mg 09/10/17 14:00 09/12/17 17:02 Flagyl PEG 500 mg TID AMY Administration Protocol Midodrine 5 mg 09/11/17 10:00 09/12/17 17:02 Proamatine PO 5 mg TID AMY Administration Multivitamins/Vitamin C 5 ml 09/10/17 10:00 09/12/17 10:12 Multi-Delyn Liquid PO 5 ml DAILY AMY Administration Pantoprazole Sodium 40 mg 09/13/17 10:00 Protonix Susp PO DAILY AMY Rosuvastatin Calcium 5 mg 08/24/17 22:00 09/12/17 21:27 Crestor PO 5 mg HS AMY Administration Saccharomyces Boulardii 250 mg 09/11/17 10:00 09/12/17 17:02 Florastor PO 250 mg BID AMY Administration Valproate Sodium 250 mg 09/02/17 22:00 09/12/17 21:27 Depakene Oral Soln PEG 250 mg Q12 AMY Administration Zinc Sulfate 220 mg 09/10/17 10:00 09/12/17 10:13 Zinc Sulfate 220 Mg Cap PO 220 mg DAILY AMY Administration - Patient Studies Lab Studies: Microbiology Studies 09/08/17 12:57 Blood Culture - Preliminary Blood-Venous NO GROWTH AFTER 4 DAYS 09/08/17 12:57 Blood Culture - Preliminary Blood-Venous NO GROWTH AFTER 4 DAYS 09/10/17 22:32 Gram Stain - Final Foot - Left Wound Culture - Preliminary NO GROWTH AFTER 24 HOURS Lab Studies 09/13/17 09/13/17 09/13/17 Range/Units 08:25 06:23 06:12 WBC (4.8-10.8) K/uL RBC (4.40-5.90) Mil/uL Hgb (12.0-18.0) g/dL Hct (35.0-51.0) % MCV (80.0-94.0) fL MCH (27.0-31.0) pg MCHC (33.0-37.0) g/dL RDW (11.5-14.5) % Plt Count (130-400) K/uL MPV (7.2-11.7) fL Neut % (Auto) (50.0-75.0) % Lymph % (Auto) (20.0-40.0) % [place] % (Auto) (0.0-10.0) % Eos % (Auto) (0.0-4.0) % Baso % (Auto) (0.0-2.0) % Neut # (Auto) (1.8-7.0) K/uL Lymph # (Auto) (1.0-4.3) K/uL [place] # (Auto) (0.0-0.8) K/uL Eos # (Auto) (0.0-0.7) K/uL Baso # (Auto) (0.0-0.2) K/uL Neutrophils % (Manual) (50-75) % Lymphocytes % (Manual) (20-40) % Monocytes % (Manual) (0-10) % Platelet Estimate (NORMAL) Polychromasia Hypochromasia (manual) Anisocytosis (manual) Target Cells Puncture Site R rad pCO2 32 L (35-45) mm/Hg pO2 102 H (80-100) mm/Hg HCO3 19.9 L (21-28) mmol/L ABG pH 7.36 (7.35-7.45) ABG Total CO2 19.1 L (22-28) mmol/L ABG O2 Saturation 100.3 H (95-98) % ABG Base Excess -6.5 L (-2.0-3.0) mmol/L ABG Hemoglobin 9.5 L (11.7-17.4) g/dL ABG Carboxyhemoglobin 2.4 H (0.5-1.5) % POC ABG HHb (Measured) -0.3 L (0.0-5.0) % ABG Methemoglobin 1.4 (0.0-3.0) % Collin Test Pos A-a O2 Difference 143.0 mm/Hg Respiratory Index 1.4 Hgb O2 Saturation 96.6 (95.0-98.0) % Vent Mode Prvc Mechanical Rate 15 FiO2 40.0 % Tidal Volume 400 PEEP 5 Sodium 146 (132-148) mmol/L Potassium 4.0 (3.6-5.2) mmol/L Chloride 116 H (98-107) mmol/L Carbon Dioxide 18 L (22-30) mmol/L Anion Gap 16 (10-20) BUN 18 (9-20) mg/dL Creatinine 0.9 (0.8-1.5) mg/dL Est GFR ( Amer) > 60 Est GFR (Non-Af Amer) > 60 POC Glucose (mg/dL) (65-110) mg/dL Random Glucose 82 (75-110) mg/dL Calcium 7.1 L (8.6-10.4) mg/dl Phosphorus 3.8 (2.5-4.5) mg/dL Magnesium 1.9 (1.6-2.3) mg/dL Total Bilirubin 4.2 H (0.2-1.3) mg/dL AST 40 (17-59) U/L ALT 14 L (21-72) U/L Alkaline Phosphatase 62 (38-126) U/L Total Protein 6.8 (6.3-8.3) g/dL Albumin 2.3 L D (3.5-5.0) g/dL Globulin 4.4 H (2.2-3.9) gm/dL Albumin/Globulin Ratio 0.5 L (1.0-2.1) Random Vancomycin 13.3 ug/mL Blood Type Antibody Screen 09/13/17 09/13/17 09/13/17 Range/Units 06:11 04:45 04:42 WBC 6.1 (4.8-10.8) K/uL RBC 3.02 L (4.40-5.90) Mil/uL Hgb 8.7 L (12.0-18.0) g/dL Hct 26.3 L (35.0-51.0) % MCV 86.9 (80.0-94.0) fL MCH 28.7 (27.0-31.0) pg MCHC 33.0 (33.0-37.0) g/dL RDW 17.9 H (11.5-14.5) % Plt Count 278 (130-400) K/uL MPV 9.2 (7.2-11.7) fL Neut % (Auto) 49.2 L (50.0-75.0) % Lymph % (Auto) 28.0 (20.0-40.0) % [place] % (Auto) 21.3 H (0.0-10.0) % Eos % (Auto) 0.1 (0.0-4.0) % Baso % (Auto) 1.4 (0.0-2.0) % Neut # (Auto) 3.0 (1.8-7.0) K/uL Lymph # (Auto) 1.7 (1.0-4.3) K/uL [place] # (Auto) 1.3 H (0.0-0.8) K/uL Eos # (Auto) 0.0 (0.0-0.7) K/uL Baso # (Auto) 0.1 (0.0-0.2) K/uL Neutrophils % (Manual) 62 (50-75) % Lymphocytes % (Manual) 21 (20-40) % Monocytes % (Manual) 17 H (0-10) % Platelet Estimate Normal (NORMAL) Polychromasia Slight Hypochromasia (manual) Slight Anisocytosis (manual) Slight Target Cells Slight Puncture Site pCO2 (35-45) mm/Hg pO2 (80-100) mm/Hg HCO3 (21-28) mmol/L ABG pH (7.35-7.45) ABG Total CO2 (22-28) mmol/L ABG O2 Saturation (95-98) % ABG Base Excess (-2.0-3.0) mmol/L ABG Hemoglobin (11.7-17.4) g/dL ABG Carboxyhemoglobin (0.5-1.5) % POC ABG HHb (Measured) (0.0-5.0) % ABG Methemoglobin (0.0-3.0) % Collin Test A-a O2 Difference mm/Hg Respiratory Index Hgb O2 Saturation (95.0-98.0) % Vent Mode Mechanical Rate FiO2 % Tidal Volume PEEP Sodium (132-148) mmol/L Potassium (3.6-5.2) mmol/L Chloride (98-107) mmol/L Carbon Dioxide (22-30) mmol/L Anion Gap (10-20) BUN (9-20) mg/dL Creatinine (0.8-1.5) mg/dL Est GFR ( Amer) Est GFR (Non-Af Amer) POC Glucose (mg/dL) 94 < 20 L* (65-110) mg/dL Random Glucose (75-110) mg/dL Calcium (8.6-10.4) mg/dl Phosphorus (2.5-4.5) mg/dL Magnesium (1.6-2.3) mg/dL Total Bilirubin (0.2-1.3) mg/dL AST (17-59) U/L ALT (21-72) U/L Alkaline Phosphatase (38-126) U/L Total Protein (6.3-8.3) g/dL Albumin (3.5-5.0) g/dL Globulin (2.2-3.9) gm/dL Albumin/Globulin Ratio (1.0-2.1) Random Vancomycin ug/mL Blood Type Antibody Screen 09/12/17 09/12/17 09/12/17 Range/Units 23:35 18:44 18:10 WBC (4.8-10.8) K/uL RBC (4.40-5.90) Mil/uL Hgb (12.0-18.0) g/dL Hct (35.0-51.0) % MCV (80.0-94.0) fL MCH (27.0-31.0) pg MCHC (33.0-37.0) g/dL RDW (11.5-14.5) % Plt Count (130-400) K/uL MPV (7.2-11.7) fL Neut % (Auto) (50.0-75.0) % Lymph % (Auto) (20.0-40.0) % [place] % (Auto) (0.0-10.0) % Eos % (Auto) (0.0-4.0) % Baso % (Auto) (0.0-2.0) % Neut # (Auto) (1.8-7.0) K/uL Lymph # (Auto) (1.0-4.3) K/uL [place] # (Auto) (0.0-0.8) K/uL Eos # (Auto) (0.0-0.7) K/uL Baso # (Auto) (0.0-0.2) K/uL Neutrophils % (Manual) (50-75) % Lymphocytes % (Manual) (20-40) % Monocytes % (Manual) (0-10) % Platelet Estimate (NORMAL) Polychromasia Hypochromasia (manual) Anisocytosis (manual) Target Cells Puncture Site pCO2 (35-45) mm/Hg pO2 (80-100) mm/Hg HCO3 (21-28) mmol/L ABG pH (7.35-7.45) ABG Total CO2 (22-28) mmol/L ABG O2 Saturation (95-98) % ABG Base Excess (-2.0-3.0) mmol/L ABG Hemoglobin (11.7-17.4) g/dL ABG Carboxyhemoglobin (0.5-1.5) % POC ABG HHb (Measured) (0.0-5.0) % ABG Methemoglobin (0.0-3.0) % Collin Test A-a O2 Difference mm/Hg Respiratory Index Hgb O2 Saturation (95.0-98.0) % Vent Mode Mechanical Rate FiO2 % Tidal Volume PEEP Sodium (132-148) mmol/L Potassium (3.6-5.2) mmol/L Chloride (98-107) mmol/L Carbon Dioxide (22-30) mmol/L Anion Gap (10-20) BUN (9-20) mg/dL Creatinine (0.8-1.5) mg/dL Est GFR ( Amer) Est GFR (Non-Af Amer) POC Glucose (mg/dL) 84 165 H 68 (65-110) mg/dL Random Glucose (75-110) mg/dL Calcium (8.6-10.4) mg/dl Phosphorus (2.5-4.5) mg/dL Magnesium (1.6-2.3) mg/dL Total Bilirubin (0.2-1.3) mg/dL AST (17-59) U/L ALT (21-72) U/L Alkaline Phosphatase (38-126) U/L Total Protein (6.3-8.3) g/dL Albumin (3.5-5.0) g/dL Globulin (2.2-3.9) gm/dL Albumin/Globulin Ratio (1.0-2.1) Random Vancomycin ug/mL Blood Type Antibody Screen 09/12/17 09/12/17 09/12/17 Range/Units 18:07 12:59 11:26 WBC (4.8-10.8) K/uL RBC (4.40-5.90) Mil/uL Hgb (12.0-18.0) g/dL Hct (35.0-51.0) % MCV (80.0-94.0) fL MCH (27.0-31.0) pg MCHC (33.0-37.0) g/dL RDW (11.5-14.5) % Plt Count (130-400) K/uL MPV (7.2-11.7) fL Neut % (Auto) (50.0-75.0) % Lymph % (Auto) (20.0-40.0) % [place] % (Auto) (0.0-10.0) % Eos % (Auto) (0.0-4.0) % Baso % (Auto) (0.0-2.0) % Neut # (Auto) (1.8-7.0) K/uL Lymph # (Auto) (1.0-4.3) K/uL [place] # (Auto) (0.0-0.8) K/uL Eos # (Auto) (0.0-0.7) K/uL Baso # (Auto) (0.0-0.2) K/uL Neutrophils % (Manual) (50-75) % Lymphocytes % (Manual) (20-40) % Monocytes % (Manual) (0-10) % Platelet Estimate (NORMAL) Polychromasia Hypochromasia (manual) Anisocytosis (manual) Target Cells Puncture Site pCO2 (35-45) mm/Hg pO2 (80-100) mm/Hg HCO3 (21-28) mmol/L ABG pH (7.35-7.45) ABG Total CO2 (22-28) mmol/L ABG O2 Saturation (95-98) % ABG Base Excess (-2.0-3.0) mmol/L ABG Hemoglobin (11.7-17.4) g/dL ABG Carboxyhemoglobin (0.5-1.5) % POC ABG HHb (Measured) (0.0-5.0) % ABG Methemoglobin (0.0-3.0) % Collin Test A-a O2 Difference mm/Hg Respiratory Index Hgb O2 Saturation (95.0-98.0) % Vent Mode Mechanical Rate FiO2 % Tidal Volume PEEP Sodium (132-148) mmol/L Potassium (3.6-5.2) mmol/L Chloride (98-107) mmol/L Carbon Dioxide (22-30) mmol/L Anion Gap (10-20) BUN (9-20) mg/dL Creatinine (0.8-1.5) mg/dL Est GFR ( Amer) Est GFR (Non-Af Amer) POC Glucose (mg/dL) 64 L 96 (65-110) mg/dL Random Glucose (75-110) mg/dL Calcium (8.6-10.4) mg/dl Phosphorus (2.5-4.5) mg/dL Magnesium (1.6-2.3) mg/dL Total Bilirubin (0.2-1.3) mg/dL AST (17-59) U/L ALT (21-72) U/L Alkaline Phosphatase (38-126) U/L Total Protein (6.3-8.3) g/dL Albumin (3.5-5.0) g/dL Globulin (2.2-3.9) gm/dL Albumin/Globulin Ratio (1.0-2.1) Random Vancomycin ug/mL Blood Type O POSITIVE Antibody Screen Negative Laboratory Results - last 24 hr 09/12/17 09/12/17 09/12/17 11:26 12:59 18:07 WBC RBC Hgb Hct MCV MCH MCHC RDW Plt Count MPV Neut % (Auto) Lymph % (Auto) [place] % (Auto) Eos % (Auto) Baso % (Auto) Neut # (Auto) Lymph # (Auto) [place] # (Auto) Eos # (Auto) Baso # (Auto) Neutrophils % (Manual) Lymphocytes % (Manual) Monocytes % (Manual) Platelet Estimate Polychromasia Hypochromasia (manual) Anisocytosis (manual) Target Cells Puncture Site pCO2 pO2 HCO3 ABG pH ABG Total CO2 ABG O2 Saturation ABG Base Excess ABG Hemoglobin ABG Carboxyhemoglobin POC ABG HHb (Measured) ABG Methemoglobin Collin Test A-a O2 Difference Respiratory Index Hgb O2 Saturation Vent Mode Mechanical Rate FiO2 Tidal Volume PEEP Sodium Potassium Chloride Carbon Dioxide Anion Gap BUN Creatinine Est GFR ( Amer) Est GFR (Non-Af Amer) POC Glucose (mg/dL) 96 64 L Random Glucose Calcium Phosphorus Magnesium Total Bilirubin AST ALT Alkaline Phosphatase Total Protein Albumin Globulin Albumin/Globulin Ratio Random Vancomycin Blood Type O POSITIVE Antibody Screen Negative 09/12/17 09/12/17 09/12/17 18:10 18:44 23:35 WBC RBC Hgb Hct MCV MCH MCHC RDW Plt Count MPV Neut % (Auto) Lymph % (Auto) [place] % (Auto) Eos % (Auto) Baso % (Auto) Neut # (Auto) Lymph # (Auto) [place] # (Auto) Eos # (Auto) Baso # (Auto) Neutrophils % (Manual) Lymphocytes % (Manual) Monocytes % (Manual) Platelet Estimate Polychromasia Hypochromasia (manual) Anisocytosis (manual) Target Cells Puncture Site pCO2 pO2 HCO3 ABG pH ABG Total CO2 ABG O2 Saturation ABG Base Excess ABG Hemoglobin ABG Carboxyhemoglobin POC ABG HHb (Measured) ABG Methemoglobin Collin Test A-a O2 Difference Respiratory Index Hgb O2 Saturation Vent Mode Mechanical Rate FiO2 Tidal Volume PEEP Sodium Potassium Chloride Carbon Dioxide Anion Gap BUN Creatinine Est GFR ( Amer) Est GFR (Non-Af Amer) POC Glucose (mg/dL) 68 165 H 84 Random Glucose Calcium Phosphorus Magnesium Total Bilirubin AST ALT Alkaline Phosphatase Total Protein Albumin Globulin Albumin/Globulin Ratio Random Vancomycin Blood Type Antibody Screen 09/13/17 09/13/17 09/13/17 04:42 04:45 06:11 WBC 6.1 RBC 3.02 L Hgb 8.7 L Hct 26.3 L MCV 86.9 MCH 28.7 MCHC 33.0 RDW 17.9 H Plt Count 278 MPV 9.2 Neut % (Auto) 49.2 L Lymph % (Auto) 28.0 [place] % (Auto) 21.3 H Eos % (Auto) 0.1 Baso % (Auto) 1.4 Neut # (Auto) 3.0 Lymph # (Auto) 1.7 [place] # (Auto) 1.3 H Eos # (Auto) 0.0 Baso # (Auto) 0.1 Neutrophils % (Manual) 62 Lymphocytes % (Manual) 21 Monocytes % (Manual) 17 H Platelet Estimate Normal Polychromasia Slight Hypochromasia (manual) Slight Anisocytosis (manual) Slight Target Cells Slight Puncture Site pCO2 pO2 HCO3 ABG pH ABG Total CO2 ABG O2 Saturation ABG Base Excess ABG Hemoglobin ABG Carboxyhemoglobin POC ABG HHb (Measured) ABG Methemoglobin Collin Test A-a O2 Difference Respiratory Index Hgb O2 Saturation Vent Mode Mechanical Rate FiO2 Tidal Volume PEEP Sodium Potassium Chloride Carbon Dioxide Anion Gap BUN Creatinine Est GFR ( Amer) Est GFR (Non-Af Amer) POC Glucose (mg/dL) < 20 L* 94 Random Glucose Calcium Phosphorus Magnesium Total Bilirubin AST ALT Alkaline Phosphatase Total Protein Albumin Globulin Albumin/Globulin Ratio Random Vancomycin Blood Type Antibody Screen 09/13/17 09/13/17 09/13/17 06:12 06:23 08:25 WBC RBC Hgb Hct MCV MCH MCHC RDW Plt Count MPV Neut % (Auto) Lymph % (Auto) [place] % (Auto) Eos % (Auto) Baso % (Auto) Neut # (Auto) Lymph # (Auto) [place] # (Auto) Eos # (Auto) Baso # (Auto) Neutrophils % (Manual) Lymphocytes % (Manual) Monocytes % (Manual) Platelet Estimate Polychromasia Hypochromasia (manual) Anisocytosis (manual) Target Cells Puncture Site R rad pCO2 32 L pO2 102 H HCO3 19.9 L ABG pH 7.36 ABG Total CO2 19.1 L ABG O2 Saturation 100.3 H ABG Base Excess -6.5 L ABG Hemoglobin 9.5 L ABG Carboxyhemoglobin 2.4 H POC ABG HHb (Measured) -0.3 L ABG Methemoglobin 1.4 Collin Test Pos A-a O2 Difference 143.0 Respiratory Index 1.4 Hgb O2 Saturation 96.6 Vent Mode Prvc Mechanical Rate 15 FiO2 40.0 Tidal Volume 400 PEEP 5 Sodium 146 Potassium 4.0 Chloride 116 H Carbon Dioxide 18 L Anion Gap 16 BUN 18 Creatinine 0.9 Est GFR ( Amer) > 60 Est GFR (Non-Af Amer) > 60 POC Glucose (mg/dL) Random Glucose 82 Calcium 7.1 L Phosphorus 3.8 Magnesium 1.9 Total Bilirubin 4.2 H AST 40 ALT 14 L Alkaline Phosphatase 62 Total Protein 6.8 Albumin 2.3 L D Globulin 4.4 H Albumin/Globulin Ratio 0.5 L Random Vancomycin 13.3 Blood Type Antibody Screen Fingerstick Blood Sugar Results: 94 Critical Care Progress Note - Nutrition Nutrition: Nutrition Category Date Time Status NPO Diet [DIET] Diets 09/07/17 Dinner Active Assessment/Plan - Assessment and Plan (Free Text) Assessment: 77 year old male with PMHx of Arthritis, Asthma, COPD, Severe Dementia, HTN, Seizures, TIA with PEG, and Right AKA presents from shelter due to fever. Admitted to ICU, intubated due to respiratory failure. Code Sepsis 2/2 Mycoplasma Pneumonia 08/27/17, Entercolitis. S/P bronchoscopy 09/03/17. S/P Tracheostomy 09/07/17. Plan: Neuro: GCS: 10T Sedation: None A: Severe Dementia, Hx of Seizure Home Carbamazepine 100mg Q8 | Home Valproic Acid 250mg PEG QID Changed to Q12H Amantadine 100mg PO Daily per Neuro Cardio: A: HxHTN, Hx of TIA, HLD Crestor 5mg PO HS A: Hypotension - Started Midodrine 5mg PO TID Pulm: A: Hypoxic Res. Failure, Asthma, COPD, Mycoplasma Pneumonia + 08/27/17 CXR (Admission): Stable postsurgical changes in the right lung with low lung volume and shift of mediastinal to the right. No acute findings. CXR (09/03): No significant interval change in right upper lobe cystic changes/ bulla and right pleural effusion. Stable position of endotracheal tube. S/P bronchoscopy 09/03/17 - bronchial washings - negative for any growth S/P Tracheostomy 09/07/[address] Celestine Monae Scheduled Endo A: Hypoglycemia (Stable) GI: A: Enterocolitis CT chest Abd/Pelvis (08/27): Enterocolits; ascities;mild bladder wall thickening with air in the bladder, iatrogenic versus infectious. -Flagyl started 08/31/17 A: Elevated T. Bili - Continue to monitor, unremarkable on CT Scan Renal: A: Hypocalcemia, corrected calcium - within normal limits, Hypokalemia Replace electrolytes PRN Heme/Onc: A: Normocytic Anemia HgB stable at new baseline of low 8s Transfused 1 unit throughout admission Transfused 2nd unit 09/07/17 Stool Occult Blood - NEGATIVE ID A: Code Sepsis, Leukocytosis (Resolved) ID on Consult, Recs Appreciated - Dr. Muñoz Cultures (08/24, 08/31) Blood - NEGATIVE to date | Urine - NEGATIVE to date | Sputum - Normal Oral Kim | MRSA - NEGATIVE Wound Cultures - Coagulase Neg Staph, Likely normal Skin Kim Mycoplasma Pneumonia IgM - positive, Patient has chronic Mycoplasma IgM. This was positive on 08/03/17 AFB Sputum Culture x 2 negative, Aspergillus AB and Antigen, H. Galactomannan Antigen, Histoplasma AB,- ALL NEGATIVE, Quant Gold - PENDING Antibiotics: Stopped - Moxifloxacin 400mg Q24H (09/01-09/08). stopped Micafungin 100mg Q24H started on 09/01 - Switched to doxy 100 Q12 09/08/17- DC on 09/10/17 and continued Flagyl 500mg Q8H started 08/31 (changed to PO through peg), continued Vanco 1 gram Q24 09/06 - spiked 101F 09/05/17 at 12:30pm - was not suh cultured, low grade fever 100.6F on 09/08, 100.9 5:30am 09/09 - pending repeat cultures 09/07 and 09/08 A: Left Foot ??Osteo/ Soft tissue infection - Continued to be febrile 101.1 8am 09/10/17 - Abx regimen changed to Meropenem 500mg IVP Q8H, Continued Vanco 1 gram Q24, flagyl 500mg PEG TID - Added vitamin C and zinc - F/U wound culture : A: Urinary Retention - Started Proscar 5mg PO Integumentary A: Left Lower ext wounds - Wound Care Prophylaxis - Protonix - Lovenox (Held) due to tracheostomy 09/07/17 - Diet: Tube Feeding - Jevity 1.5 - Lines: Right IJ Central Line removed, placed Left PICC line 09/06/17, consent retrieved from Elizabet legal guardian [phone] Disposition: Dr. Eli will speak to Elizabet in regards to the goals of care for this patient. Pending ultimate decision from legal guardian about placing patient in [facility] ;; patient transferred to TELEMETRY. DW with ICU Attending - Tita George, PGY-1 <Brie Eli - Last Filed: 09/13/17 19:06> CCU Subjective - Physician Review Critical Care Time Spent (in minutes): 45 CCU Objective - Vital Signs / Intake & Output Vital Signs (Last 4 hours): Vital Signs Temp Pulse Resp BP Pulse Ox 09/13/17 16:00 100.5 F H 104 H 28 H 97/53 L 99 Intake and Output (Last 8hrs): Intake & Output 09/13/17 09/13/17 09/13/17 06:59 14:59 22:59 Intake Total 855 440 150 Output Total 205 180 100 Balance 650 260 50 Weight 169 lb 1.513 oz Intake: Intake, IV Amount 100 300 100 Left Distal Port PICC 100 300 100 Tube Feeding 325 140 50 Other 430 Output: Urine 205 180 100 Urethral (Brown) 205 180 100 Other: # Bowel Movements 1 - Medications Active Medications: Active Medications Generic Name Dose Route Start Last Admin Trade Name Freq PRN Reason Stop Dose Admin Acetaminophen 650 mg 09/11/17 20:30 09/13/17 16:14 Tylenol 650mg/20.3ml Solution Ud PO 650 mg Q6 PRN Administration Fever >100.4 F Albuterol/Ipratropium 3 ml 08/28/17 08:00 09/13/17 14:22 Duoneb 3 Mg/0.5 Mg (3 Ml) Ud INH 3 ml RQ6 AMY Administration Amantadine HCl 100 mg 09/05/17 10:00 09/13/17 10:20 Symmetrel PO 100 mg DAILY AMY Administration Ascorbic Acid 500 mg 09/10/17 10:00 09/13/17 10:20 Vitamin C 500 Mg Tab PO 500 mg DAILY AMY Administration Carbamazepine 100 mg 08/24/17 22:00 09/13/17 14:20 Tegretol PEG 100 mg Q8 AMY Administration Dextrose 0 ml 09/12/17 18:15 09/13/17 12:00 Dextrose 50% Inj IV 50 ml STAT PRN Administration Hypoglycemia Protocol Protocol Finasteride 5 mg 09/11/17 10:00 09/13/17 10:19 Proscar PO 5 mg DAILY AMY Administration Heparin Sodium (Porcine) 5,000 units 09/12/17 22:00 09/13/17 10:18 Heparin SC 5,000 units Q12 AMY Administration Meropenem 500 mg/ Sodium 100 mls @ 100 mls/hr 09/10/17 11:00 09/13/17 18:14 Chloride IVPB 100 mls/hr Q8H AMY Administration Protocol Vancomycin/Sodium Chloride 1 gm in 200 mls @ 133 mls/hr 09/13/17 10:00 10:34 Vancomycin 1 Gm/Ns 200 Ml IVPB 09/18/17 10:01 133 mls/hr DAILY AMY Administration Protocol Metoclopramide HCl 10 mg 09/13/17 18:00 09/13/17 18:13 Reglan IVP 10 mg Q6H AMY Administration Metronidazole 500 mg 09/10/17 14:00 09/13/17 17:25 Flagyl PEG 500 mg TID AMY Administration Protocol Midodrine 5 mg 09/11/17 10:00 09/13/17 17:25 Proamatine PO 5 mg TID AMY Administration Multivitamins/Vitamin C 5 ml 09/10/17 10:00 09/13/17 10:19 Multi-Delyn Liquid PO 5 ml DAILY AMY Administration Pantoprazole Sodium 40 mg 09/13/17 10:00 09/13/17 10:20 Protonix Susp PO 40 mg DAILY AMY Administration Rosuvastatin Calcium 5 mg 08/24/17 22:00 09/12/17 21:27 Crestor PO 5 mg HS AMY Administration Saccharomyces Boulardii 250 mg 09/11/17 10:00 09/13/17 17:25 Florastor PO 250 mg BID AMY Administration Valproate Sodium 250 mg 09/02/17 22:00 09/13/17 10:18 Depakene Oral Soln PEG 250 mg Q12 AMY Administration Zinc Sulfate 220 mg 09/10/17 10:00 09/13/17 10:20 Zinc Sulfate 220 Mg Cap PO 220 mg DAILY AMY Administration - Patient Studies Lab Studies: Microbiology Studies 09/08/17 12:57 Blood Culture - Final Blood-Venous NO GROWTH AFTER 5 DAYS Gram Stain - Final TEST NOT PERFORMED 09/08/17 12:57 Blood Culture - Final Blood-Venous NO GROWTH AFTER 5 DAYS Gram Stain - Final TEST NOT PERFORMED 09/10/17 22:32 Gram Stain - Final Foot - Left Wound Culture - Preliminary No growth. Lab Studies 09/13/17 09/13/17 09/13/17 Range/Units 17:46 17:45 12:37 WBC (4.8-10.8) K/uL RBC (4.40-5.90) Mil/uL Hgb (12.0-18.0) g/dL Hct (35.0-51.0) % MCV (80.0-94.0) fL MCH (27.0-31.0) pg MCHC (33.0-37.0) g/dL RDW (11.5-14.5) % Plt Count (130-400) K/uL MPV (7.2-11.7) fL Neut % (Auto) (50.0-75.0) % Lymph % (Auto) (20.0-40.0) % [place] % (Auto) (0.0-10.0) % Eos % (Auto) (0.0-4.0) % Baso % (Auto) (0.0-2.0) % Neut # (Auto) (1.8-7.0) K/uL Lymph # (Auto) (1.0-4.3) K/uL [place] # (Auto) (0.0-0.8) K/uL Eos # (Auto) (0.0-0.7) K/uL Baso # (Auto) (0.0-0.2) K/uL Neutrophils % (Manual) (50-75) % Lymphocytes % (Manual) (20-40) % Monocytes % (Manual) (0-10) % Platelet Estimate (NORMAL) Polychromasia Hypochromasia (manual) Anisocytosis (manual) Target Cells Puncture Site pCO2 (35-45) mm/Hg pO2 (80-100) mm/Hg HCO3 (21-28) mmol/L ABG pH (7.35-7.45) ABG Total CO2 (22-28) mmol/L ABG O2 Saturation (95-98) % ABG Base Excess (-2.0-3.0) mmol/L ABG Hemoglobin (11.7-17.4) g/dL ABG Carboxyhemoglobin (0.5-1.5) % POC ABG HHb (Measured) (0.0-5.0) % ABG Methemoglobin (0.0-3.0) % Collin Test A-a O2 Difference mm/Hg Respiratory Index Hgb O2 Saturation (95.0-98.0) % Vent Mode Mechanical Rate FiO2 % Tidal Volume PEEP Sodium (132-148) mmol/L Potassium (3.6-5.2) mmol/L Chloride (98-107) mmol/L Carbon Dioxide (22-30) mmol/L Anion Gap (10-20) BUN (9-20) mg/dL Creatinine (0.8-1.5) mg/dL Est GFR ( Amer) Est GFR (Non-Af Amer) POC Glucose (mg/dL) 57 L 57 L 140 H (65-110) mg/dL Random Glucose (75-110) mg/dL Calcium (8.6-10.4) mg/dl Phosphorus (2.5-4.5) mg/dL Magnesium (1.6-2.3) mg/dL Total Bilirubin (0.2-1.3) mg/dL AST (17-59) U/L ALT (21-72) U/L Alkaline Phosphatase (38-126) U/L Total Protein (6.3-8.3) g/dL Albumin (3.5-5.0) g/dL Globulin (2.2-3.9) gm/dL Albumin/Globulin Ratio (1.0-2.1) Random Vancomycin ug/mL 09/13/17 09/13/17 09/13/17 Range/Units 11:48 11:47 08:25 WBC (4.8-10.8) K/uL RBC (4.40-5.90) Mil/uL Hgb (12.0-18.0) g/dL Hct (35.0-51.0) % MCV (80.0-94.0) fL MCH (27.0-31.0) pg MCHC (33.0-37.0) g/dL RDW (11.5-14.5) % Plt Count (130-400) K/uL MPV (7.2-11.7) fL Neut % (Auto) (50.0-75.0) % Lymph % (Auto) (20.0-40.0) % [place] % (Auto) (0.0-10.0) % Eos % (Auto) (0.0-4.0) % Baso % (Auto) (0.0-2.0) % Neut # (Auto) (1.8-7.0) K/uL Lymph # (Auto) (1.0-4.3) K/uL [place] # (Auto) (0.0-0.8) K/uL Eos # (Auto) (0.0-0.7) K/uL Baso # (Auto) (0.0-0.2) K/uL Neutrophils % (Manual) (50-75) % Lymphocytes % (Manual) (20-40) % Monocytes % (Manual) (0-10) % Platelet Estimate (NORMAL) Polychromasia Hypochromasia (manual) Anisocytosis (manual) Target Cells Puncture Site pCO2 (35-45) mm/Hg pO2 (80-100) mm/Hg HCO3 (21-28) mmol/L ABG pH (7.35-7.45) ABG Total CO2 (22-28) mmol/L ABG O2 Saturation (95-98) % ABG Base Excess (-2.0-3.0) mmol/L ABG Hemoglobin (11.7-17.4) g/dL ABG Carboxyhemoglobin (0.5-1.5) % POC ABG HHb (Measured) (0.0-5.0) % ABG Methemoglobin (0.0-3.0) % Collin Test A-a O2 Difference mm/Hg Respiratory Index Hgb O2 Saturation (95.0-98.0) % Vent Mode Mechanical Rate FiO2 % Tidal Volume PEEP Sodium (132-148) mmol/L Potassium (3.6-5.2) mmol/L Chloride (98-107) mmol/L Carbon Dioxide (22-30) mmol/L Anion Gap (10-20) BUN (9-20) mg/dL Creatinine (0.8-1.5) mg/dL Est GFR ( Amer) Est GFR (Non-Af Amer) POC Glucose (mg/dL) 52 L 53 L (65-110) mg/dL Random Glucose (75-110) mg/dL Calcium (8.6-10.4) mg/dl Phosphorus (2.5-4.5) mg/dL Magnesium (1.6-2.3) mg/dL Total Bilirubin (0.2-1.3) mg/dL AST (17-59) U/L ALT (21-72) U/L Alkaline Phosphatase (38-126) U/L Total Protein (6.3-8.3) g/dL Albumin (3.5-5.0) g/dL Globulin (2.2-3.9) gm/dL Albumin/Globulin Ratio (1.0-2.1) Random Vancomycin 13.3 ug/mL 09/13/17 09/13/17 09/13/17 Range/Units 06:23 06:12 06:11 WBC 6.1 (4.8-10.8) K/uL RBC 3.02 L (4.40-5.90) Mil/uL Hgb 8.7 L (12.0-18.0) g/dL Hct 26.3 L (35.0-51.0) % MCV 86.9 (80.0-94.0) fL MCH 28.7 (27.0-31.0) pg MCHC 33.0 (33.0-37.0) g/dL RDW 17.9 H (11.5-14.5) % Plt Count 278 (130-400) K/uL MPV 9.2 (7.2-11.7) fL Neut % (Auto) 49.2 L (50.0-75.0) % Lymph % (Auto) 28.0 (20.0-40.0) % [place] % (Auto) 21.3 H (0.0-10.0) % Eos % (Auto) 0.1 (0.0-4.0) % Baso % (Auto) 1.4 (0.0-2.0) % Neut # (Auto) 3.0 (1.8-7.0) K/uL Lymph # (Auto) 1.7 (1.0-4.3) K/uL [place] # (Auto) 1.3 H (0.0-0.8) K/uL Eos # (Auto) 0.0 (0.0-0.7) K/uL Baso # (Auto) 0.1 (0.0-0.2) K/uL Neutrophils % (Manual) 62 (50-75) % Lymphocytes % (Manual) 21 (20-40) % Monocytes % (Manual) 17 H (0-10) % Platelet Estimate Normal (NORMAL) Polychromasia Slight Hypochromasia (manual) Slight Anisocytosis (manual) Slight Target Cells Slight Puncture Site R rad pCO2 32 L (35-45) mm/Hg pO2 102 H (80-100) mm/Hg HCO3 19.9 L (21-28) mmol/L ABG pH 7.36 (7.35-7.45) ABG Total CO2 19.1 L (22-28) mmol/L ABG O2 Saturation 100.3 H (95-98) % ABG Base Excess -6.5 L (-2.0-3.0) mmol/L ABG Hemoglobin 9.5 L (11.7-17.4) g/dL ABG Carboxyhemoglobin 2.4 H (0.5-1.5) % POC ABG HHb (Measured) -0.3 L (0.0-5.0) % ABG Methemoglobin 1.4 (0.0-3.0) % Collin Test Pos A-a O2 Difference 143.0 mm/Hg Respiratory Index 1.4 Hgb O2 Saturation 96.6 (95.0-98.0) % Vent Mode Prvc Mechanical Rate 15 FiO2 40.0 % Tidal Volume 400 PEEP 5 Sodium 146 (132-148) mmol/L Potassium 4.0 (3.6-5.2) mmol/L Chloride 116 H (98-107) mmol/L Carbon Dioxide 18 L (22-30) mmol/L Anion Gap 16 (10-20) BUN 18 (9-20) mg/dL Creatinine 0.9 (0.8-1.5) mg/dL Est GFR ( Amer) > 60 Est GFR (Non-Af Amer) > 60 POC Glucose (mg/dL) (65-110) mg/dL Random Glucose 82 (75-110) mg/dL Calcium 7.1 L (8.6-10.4) mg/dl Phosphorus 3.8 (2.5-4.5) mg/dL Magnesium 1.9 (1.6-2.3) mg/dL Total Bilirubin 4.2 H (0.2-1.3) mg/dL AST 40 (17-59) U/L ALT 14 L (21-72) U/L Alkaline Phosphatase 62 (38-126) U/L Total Protein 6.8 (6.3-8.3) g/dL Albumin 2.3 L D (3.5-5.0) g/dL Globulin 4.4 H (2.2-3.9) gm/dL Albumin/Globulin Ratio 0.5 L (1.0-2.1) Random Vancomycin ug/mL 09/13/17 09/13/17 09/12/17 Range/Units 04:45 04:42 23:35 WBC (4.8-10.8) K/uL RBC (4.40-5.90) Mil/uL Hgb (12.0-18.0) g/dL Hct (35.0-51.0) % MCV (80.0-94.0) fL MCH (27.0-31.0) pg MCHC (33.0-37.0) g/dL RDW (11.5-14.5) % Plt Count (130-400) K/uL MPV (7.2-11.7) fL Neut % (Auto) (50.0-75.0) % Lymph % (Auto) (20.0-40.0) % [place] % (Auto) (0.0-10.0) % Eos % (Auto) (0.0-4.0) % Baso % (Auto) (0.0-2.0) % Neut # (Auto) (1.8-7.0) K/uL Lymph # (Auto) (1.0-4.3) K/uL [place] # (Auto) (0.0-0.8) K/uL Eos # (Auto) (0.0-0.7) K/uL Baso # (Auto) (0.0-0.2) K/uL Neutrophils % (Manual) (50-75) % Lymphocytes % (Manual) (20-40) % Monocytes % (Manual) (0-10) % Platelet Estimate (NORMAL) Polychromasia Hypochromasia (manual) Anisocytosis (manual) Target Cells Puncture Site pCO2 (35-45) mm/Hg pO2 (80-100) mm/Hg HCO3 (21-28) mmol/L ABG pH (7.35-7.45) ABG Total CO2 (22-28) mmol/L ABG O2 Saturation (95-98) % ABG Base Excess (-2.0-3.0) mmol/L ABG Hemoglobin (11.7-17.4) g/dL ABG Carboxyhemoglobin (0.5-1.5) % POC ABG HHb (Measured) (0.0-5.0) % ABG Methemoglobin (0.0-3.0) % Collin Test A-a O2 Difference mm/Hg Respiratory Index Hgb O2 Saturation (95.0-98.0) % Vent Mode Mechanical Rate FiO2 % Tidal Volume PEEP Sodium (132-148) mmol/L Potassium (3.6-5.2) mmol/L Chloride (98-107) mmol/L Carbon Dioxide (22-30) mmol/L Anion Gap (10-20) BUN (9-20) mg/dL Creatinine (0.8-1.5) mg/dL Est GFR ( Amer) Est GFR (Non-Af Amer) POC Glucose (mg/dL) 94 < 20 L* 84 (65-110) mg/dL Random Glucose (75-110) mg/dL Calcium (8.6-10.4) mg/dl Phosphorus (2.5-4.5) mg/dL Magnesium (1.6-2.3) mg/dL Total Bilirubin (0.2-1.3) mg/dL AST (17-59) U/L ALT (21-72) U/L Alkaline Phosphatase (38-126) U/L Total Protein (6.3-8.3) g/dL Albumin (3.5-5.0) g/dL Globulin (2.2-3.9) gm/dL Albumin/Globulin Ratio (1.0-2.1) Random Vancomycin ug/mL Laboratory Results - last 24 hr 09/12/17 09/13/17 09/13/17 23:35 04:42 04:45 WBC RBC Hgb Hct MCV MCH MCHC RDW Plt Count MPV Neut % (Auto) Lymph % (Auto) [place] % (Auto) Eos % (Auto) Baso % (Auto) Neut # (Auto) Lymph # (Auto) [place] # (Auto) Eos # (Auto) Baso # (Auto) Neutrophils % (Manual) Lymphocytes % (Manual) Monocytes % (Manual) Platelet Estimate Polychromasia Hypochromasia (manual) Anisocytosis (manual) Target Cells Puncture Site pCO2 pO2 HCO3 ABG pH ABG Total CO2 ABG O2 Saturation ABG Base Excess ABG Hemoglobin ABG Carboxyhemoglobin POC ABG HHb (Measured) ABG Methemoglobin Collin Test A-a O2 Difference Respiratory Index Hgb O2 Saturation Vent Mode Mechanical Rate FiO2 Tidal Volume PEEP Sodium Potassium Chloride Carbon Dioxide Anion Gap BUN Creatinine Est GFR ( Amer) Est GFR (Non-Af Amer) POC Glucose (mg/dL) 84 < 20 L* 94 Random Glucose Calcium Phosphorus Magnesium Total Bilirubin AST ALT Alkaline Phosphatase Total Protein Albumin Globulin Albumin/Globulin Ratio Random Vancomycin 09/13/17 09/13/17 09/13/17 06:11 06:12 06:23 WBC 6.1 RBC 3.02 L Hgb 8.7 L Hct 26.3 L MCV 86.9 MCH 28.7 MCHC 33.0 RDW 17.9 H Plt Count 278 MPV 9.2 Neut % (Auto) 49.2 L Lymph % (Auto) 28.0 [place] % (Auto) 21.3 H Eos % (Auto) 0.1 Baso % (Auto) 1.4 Neut # (Auto) 3.0 Lymph # (Auto) 1.7 [place] # (Auto) 1.3 H Eos # (Auto) 0.0 Baso # (Auto) 0.1 Neutrophils % (Manual) 62 Lymphocytes % (Manual) 21 Monocytes % (Manual) 17 H Platelet Estimate Normal Polychromasia Slight Hypochromasia (manual) Slight Anisocytosis (manual) Slight Target Cells Slight Puncture Site R rad pCO2 32 L pO2 102 H HCO3 19.9 L ABG pH 7.36 ABG Total CO2 19.1 L ABG O2 Saturation 100.3 H ABG Base Excess -6.5 L ABG Hemoglobin 9.5 L ABG Carboxyhemoglobin 2.4 H POC ABG HHb (Measured) -0.3 L ABG Methemoglobin 1.4 Collin Test Pos A-a O2 Difference 143.0 Respiratory Index 1.4 Hgb O2 Saturation 96.6 Vent Mode Prvc Mechanical Rate 15 FiO2 40.0 Tidal Volume 400 PEEP 5 Sodium 146 Potassium 4.0 Chloride 116 H Carbon Dioxide 18 L Anion Gap 16 BUN 18 Creatinine 0.9 Est GFR ( Amer) > 60 Est GFR (Non-Af Amer) > 60 POC Glucose (mg/dL) Random Glucose 82 Calcium 7.1 L Phosphorus 3.8 Magnesium 1.9 Total Bilirubin 4.2 H AST 40 ALT 14 L Alkaline Phosphatase 62 Total Protein 6.8 Albumin 2.3 L D Globulin 4.4 H Albumin/Globulin Ratio 0.5 L Random Vancomycin 09/13/17 09/13/17 09/13/17 08:25 11:47 11:48 WBC RBC Hgb Hct MCV MCH MCHC RDW Plt Count MPV Neut % (Auto) Lymph % (Auto) [place] % (Auto) Eos % (Auto) Baso % (Auto) Neut # (Auto) Lymph # (Auto) [place] # (Auto) Eos # (Auto) Baso # (Auto) Neutrophils % (Manual) Lymphocytes % (Manual) Monocytes % (Manual) Platelet Estimate Polychromasia Hypochromasia (manual) Anisocytosis (manual) Target Cells Puncture Site pCO2 pO2 HCO3 ABG pH ABG Total CO2 ABG O2 Saturation ABG Base Excess ABG Hemoglobin ABG Carboxyhemoglobin POC ABG HHb (Measured) ABG Methemoglobin Collin Test A-a O2 Difference Respiratory Index Hgb O2 Saturation Vent Mode Mechanical Rate FiO2 Tidal Volume PEEP Sodium Potassium Chloride Carbon Dioxide Anion Gap BUN Creatinine Est GFR ( Amer) Est GFR (Non-Af Amer) POC Glucose (mg/dL) 53 L 52 L Random Glucose Calcium Phosphorus Magnesium Total Bilirubin AST ALT Alkaline Phosphatase Total Protein Albumin Globulin Albumin/Globulin Ratio Random Vancomycin 13.3 09/13/17 09/13/17 09/13/17 12:37 17:45 17:46 WBC RBC Hgb Hct MCV MCH MCHC RDW Plt Count MPV Neut % (Auto) Lymph % (Auto) [place] % (Auto) Eos % (Auto) Baso % (Auto) Neut # (Auto) Lymph # (Auto) [place] # (Auto) Eos # (Auto) Baso # (Auto) Neutrophils % (Manual) Lymphocytes % (Manual) Monocytes % (Manual) Platelet Estimate Polychromasia Hypochromasia (manual) Anisocytosis (manual) Target Cells Puncture Site pCO2 pO2 HCO3 ABG pH ABG Total CO2 ABG O2 Saturation ABG Base Excess ABG Hemoglobin ABG Carboxyhemoglobin POC ABG HHb (Measured) ABG Methemoglobin Collin Test A-a O2 Difference Respiratory Index Hgb O2 Saturation Vent Mode Mechanical Rate FiO2 Tidal Volume PEEP Sodium Potassium Chloride Carbon Dioxide Anion Gap BUN Creatinine Est GFR ( Amer) Est GFR (Non-Af Amer) POC Glucose (mg/dL) 140 H 57 L 57 L Random Glucose Calcium Phosphorus Magnesium Total Bilirubin AST ALT Alkaline Phosphatase Total Protein Albumin Globulin Albumin/Globulin Ratio Random Vancomycin Critical Care Progress Note - Nutrition Nutrition: Nutrition Category Date Time Status NPO Diet [DIET] Diets 09/07/17 Dinner Active Assessment/Plan (1) Respiratory failure Current Visit: Yes Status: Acute (2) Acute hypernatremia Current Visit: No Status: Acute (3) Cellulitis of right foot Current Visit: No Status: Acute Attending/Attestation - Attestation I have personally seen and examined this patient.: Yes I have fully participated in the care of the patient.: Yes I have reviewed all pertinent clinical information: Yes Notes (Text): 09/13/17 19:05 During the rounds patient's information was discussed. Labs discussed. Radiological investigation was reviewed in Medications reviewed I agree with the resident's note at this time. Continue the current treatment."
[2017-09-13] MEDS: Saccharomyces Boulardi 250 mg Cap PO SCH ×2 (10:18→17:25)
[2017-09-13] MEDS: Valproic Acid 250 mg/5 ml UD Cup PEG SCH ×2 (10:18→21:11)
[2017-09-13] MEDS: Multiple Vitamins Oral Solution PO SCH (10:19)
[2017-09-13] MEDS: Amantadine 50 mg/5 ml Syrup (473 ml) PO SCH (10:20)
[2017-09-13] MEDS: Pantoprazole 40 mg Susp UD PO SCH (10:20)
[2017-09-13] MEDS: Vancomycin 1 gm/NS 200 ml 1 GM/200 ML BAG IVPB SCH (10:34)
[2017-09-13] MEDS ORDERED: Dextrose 50% SYRINGE Inj (50 ml) IV STA ×2 (11:48→17:54)
[2017-09-13] MEDS: Dextrose 50% SYRINGE Inj (50 ml) IV PRN ×2 (12:00→18:12)
--- NOTE | 2017-09-13 12:47 | VASCLAB ---
PROCEDURE: Bilateral Upper Extremity Venous Duplex Exam HISTORY: Swelling PRIORS: Upper extremity venous ultrasound performed 09/07/2017. TECHNIQUE: Bilateral upper extremity, internal jugular, subclavian, axillary, brachial, ulnar, radial, basilic and upper cephalic veins were evaluated. Flow was assessed with color Doppler, compressibility, assessment of phasic flow and augmentation response. Report prepared by CLAUDIA FreitasS FINDINGS: RIGHT: 1. Internal Jugular: 1.1. Compressibility - Fully compressible: Thrombus - None : Flow - Phasic: Augmentation -Normal: Reflux - None. 2. Subclavian: 2.1. Compressibility - Fully compressible: Thrombus - None : Flow - Phasic: Augmentation -Normal: Reflux - None. 3. Axillary: 3.1. Compressibility - Fully compressible: Thrombus - None : Flow - Phasic: Augmentation -Normal: Reflux - None. 4. Brachial: 4.1. Compressibility - Fully compressible: Thrombus - None: Flow - Phasic: Augmentation -Normal: Reflux - None. 5. Ulnar: 5.1. Compressibility - Fully compressible: Thrombus - None: Flow - Phasic: Augmentation -Normal: Reflux - None. 6. Radial: 6.1. Compressibility - Fully compressible: Thrombus - None: Flow - Phasic: Augmentation - Normal: Reflux - None. 7. Cephalic: (uuper arm only) 7.1. Compressibility - Fully compressible: Thrombus - None: Flow - Phasic: Augmentation -Normal: Reflux - None. 8. Basilic: 8.1. Not visible LEFT: 1. Internal Jugular: 1.1. Compressibility - Fully compressible: Thrombus - None : Flow - Phasic: Augmentation -Normal: Reflux - None. 2. Subclavian: 2.1. Compressibility - Fully compressible: Thrombus - None : Flow - Phasic: Augmentation -Normal: Reflux - None. 3. Axillary: 3.1. Compressibility - Fully compressible: Thrombus - None : Flow - Phasic: Augmentation -Normal: Reflux - None. 4. Brachial: 4.1. Unable to examine due to lines and dressings. 5. Ulnar: 5.1. Compressibility - Fully compressible: Thrombus - None: Flow - Phasic: Augmentation -Normal: Reflux - None. 6. Radial: 6.1. Compressibility - Fully compressible: Thrombus - None: Flow - Phasic: Augmentation - Normal: Reflux - None. 7. Cephalic: Not visible 8. Basilic: Not visible OTHER FINDINGS: Right: None. Left: None. IMPRESSION: 1. No evidence of venous thrombosis in bilateral upper extremities, for the examined veins. 2. Normal phasic venous flow noted bilaterally.
--- NOTE | 2017-09-13 12:47 | VASCLAB ---
PROCEDURE: Left Lower Extremity Venous Duplex Exam HISTORY: Febrile PRIORS: None. TECHNIQUE: Left common femoral, femoral, popliteal and posterior tibial, peroneal and great saphenous veins were evaluated. Flow was assessed with color Doppler, compressibility, assessment of phasic flow and augmentation response. Report prepared by UTE Freitas FINDINGS: LEFT: 1. Common Femoral Vein: 1.1. Compressibility - Fully compressible: Thrombus - None : Flow - Phasic: Augmentation -Normal: Reflux - None. 2. Femoral Vein: (proximal view only) 2.1. Compressibility - Fully compressible: Thrombus - None: Flow - Phasic: Augmentation -Normal: Reflux - None. 3. Popliteal Vein: 3.1. Compressibility - Fully compressible: Thrombus - None: Flow - Phasic: Augmentation -Normal: Reflux - None. 4. Posterior Tibial Vein: 5. Peroneal Vein: 6. Great Saphenous Vein: OTHER FINDINGS: Limited exam due to limited patient positioning. IMPRESSION: Compressible left common femoral, proximal femoral and popliteal veins.
[2017-09-13] MEDS: Acetaminophen 650mg/20.3ml solution UD PO PRN (16:14)
--- NOTE | 2017-09-13 17:40 | CP.PCM.PN ---
Subjective - Date & Time of Evaluation Date of Evaluation: 09/13/17 Time of Evaluation: 11:00 - Subjective Subjective: the patient seen and examined Remains lethargic Not tolerating weaning Status post colostomy Not tolerating feeding with a lot of residual copious amount of secretions from ET TUBE Afebrile Prognosis poor LTACH Objective - Vital Signs/Intake and Output Vital Signs (last 24 hours): Temp Pulse Resp BP Pulse Ox 100.5 F H 104 H 28 H 97/53 L 99 09/13/17 16:00 09/13/17 16:00 09/13/17 16:00 09/13/17 16:00 09/13/17 16:00 Intake and Output: 09/13/17 09/13/17 06:59 18:59 Intake Total 1155 470 Output Total 300 260 Balance 855 210 - Medications Medications: Current Medications Acetaminophen (Tylenol 650mg/20.3ml Solution Ud) 650 mg PO Q6 PRN PRN Reason: Fever >100.4 F Last Admin: 09/13/17 16:14 Dose: 650 mg Albuterol/Ipratropium (Duoneb 3 Mg/0.5 Mg (3 Ml) Ud) 3 ml INH RQ6 AMY Last Admin: 09/13/17 14:22 Dose: 3 ml Amantadine HCl (Symmetrel) 100 mg PO DAILY [facility] Last Admin: 09/13/17 10:20 Dose: 100 mg Ascorbic Acid (Vitamin C 500 Mg Tab) 500 mg PO DAILY [facility] Last Admin: 09/13/17 10:20 Dose: 500 mg Carbamazepine (Tegretol) 100 mg PEG Q8 AMY Last Admin: 09/13/17 14:20 Dose: 100 mg Dextrose (Dextrose 50% Inj) 0 ml IV STAT PRN; Protocol PRN Reason: Hypoglycemia Protocol Last Admin: 09/13/17 12:00 Dose: 50 ml Finasteride (Proscar) 5 mg PO DAILY [facility] Last Admin: 09/13/17 10:19 Dose: 5 mg Heparin Sodium (Porcine) (Heparin) 5,000 units SC Q12 AMY Last Admin: 09/13/17 10:18 Dose: 5,000 units Meropenem 500 mg/ Sodium (Chloride) 100 mls @ 100 mls/hr IVPB Q8H AM[facility] PRN Reason: Protocol Last Admin: 09/13/17 10:21 Dose: 100 mls/hr Vancomycin/Sodium Chloride (Vancomycin 1 Gm/Ns 200 Ml) 1 gm in 200 mls @ 133 mls/hr IVPB DAILY [facility] PRN Reason: Protocol Stop: 09/18/17 10:01 Last Admin: 09/13/17 10:34 Dose: 133 mls/hr Metronidazole (Flagyl) 500 mg PEG TID [facility] PRN Reason: Protocol Last Admin: 09/13/17 17:25 Dose: 500 mg Midodrine (Proamatine) 5 mg PO TID [facility] Last Admin: 09/13/17 17:25 Dose: 5 mg Multivitamins/Vitamin C (Multi-Delyn Liquid) 5 ml PO DAILY [facility] Last Admin: 09/13/17 10:19 Dose: 5 ml Pantoprazole Sodium (Protonix Susp) 40 mg PO DAILY [facility] Last Admin: 09/13/17 10:20 Dose: 40 mg Rosuvastatin Calcium (Crestor) 5 mg PO HS [facility] Last Admin: 09/12/17 21:27 Dose: 5 mg Saccharomyces Boulardii (Florastor) 250 mg PO BID [facility] Last Admin: 09/13/17 17:25 Dose: 250 mg Valproate Sodium (Depakene Oral Soln) 250 mg PEG Q12 [facility] Last Admin: 09/13/17 10:18 Dose: 250 mg Zinc Sulfate (Zinc Sulfate 220 Mg Cap) 220 mg PO DAILY [facility] Last Admin: 09/13/17 10:20 Dose: 220 mg - Labs Labs: 09/13/17 06:11 09/13/17 06:12 PT 22.0 SECONDS (9.7-12.2) H 09/07/17 06:08 INR 2.0 09/07/17 06:08 APTT 43 SECONDS (21-34) H 09/07/17 06:08 - Head Exam Head Exam: ATRAUMATIC, NORMOCEPHALIC - ENT Exam ENT Exam: Mucous Membranes Moist - Neck Exam Neck Exam: Normal Inspection - Respiratory Exam Respiratory Exam: Decreased Breath Sounds - Cardiovascular Exam Cardiovascular Exam: REGULAR RHYTHM - GI/Abdominal Exam GI & Abdominal Exam: Soft, Normal Bowel Sounds Assessment and Plan (1) Respiratory failure Status: Acute (2) Anemia Status: Acute (3) Pneumonia Status: Acute
--- NOTE | 2017-09-13 19:16 | CP.PCM.PN ---
Subjective - Date & Time of Evaluation Date of Evaluation: 09/13/17 Time of Evaluation: 14:00 - Subjective Subjective: DICTATED Objective - Vital Signs/Intake and Output Vital Signs (last 24 hours): Temp Pulse Resp BP Pulse Ox 100.5 F H 104 H 28 H 97/53 L 99 09/13/17 16:00 09/13/17 16:00 09/13/17 16:00 09/13/17 16:00 09/13/17 16:00 Intake and Output: 09/13/17 09/14/17 18:59 06:59 Intake Total 580 10 Output Total 280 Balance 300 10 - Medications Medications: Current Medications Acetaminophen (Tylenol 650mg/20.3ml Solution Ud) 650 mg PO Q6 PRN PRN Reason: Fever >100.4 F Last Admin: 09/13/17 16:14 Dose: 650 mg Albuterol/Ipratropium (Duoneb 3 Mg/0.5 Mg (3 Ml) Ud) 3 ml INH RQ6 AMY Last Admin: 09/13/17 19:08 Dose: 3 ml Amantadine HCl (Symmetrel) 100 mg PO DAILY [facility] Last Admin: 09/13/17 10:20 Dose: 100 mg Ascorbic Acid (Vitamin C 500 Mg Tab) 500 mg PO DAILY [facility] Last Admin: 09/13/17 10:20 Dose: 500 mg Carbamazepine (Tegretol) 100 mg PEG Q8 [facility] Last Admin: 09/13/17 14:20 Dose: 100 mg Dextrose (Dextrose 50% Inj) 0 ml IV STAT PRN; Protocol PRN Reason: Hypoglycemia Protocol Last Admin: 09/13/17 12:00 Dose: 50 ml Finasteride (Proscar) 5 mg PO DAILY [facility] Last Admin: 09/13/17 10:19 Dose: 5 mg Heparin Sodium (Porcine) (Heparin) 5,000 units SC Q12 [facility] Last Admin: 09/13/17 10:18 Dose: 5,000 units Meropenem 500 mg/ Sodium (Chloride) 100 mls @ 100 mls/hr IVPB Q8H [facility] PRN Reason: Protocol Last Admin: 09/13/17 18:14 Dose: 100 mls/hr Vancomycin/Sodium Chloride (Vancomycin 1 Gm/Ns 200 Ml) 1 gm in 200 mls @ 133 mls/hr IVPB DAILY [facility] PRN Reason: Protocol Stop: 09/18/17 10:01 Last Admin: 09/13/17 10:34 Dose: 133 mls/hr Metoclopramide HCl (Reglan) 10 mg IVP Q6H [facility] Last Admin: 09/13/17 18:13 Dose: 10 mg Metronidazole (Flagyl) 500 mg PEG TID [facility] PRN Reason: Protocol Last Admin: 09/13/17 17:25 Dose: 500 mg Midodrine (Proamatine) 5 mg PO TID [facility] Last Admin: 09/13/17 17:25 Dose: 5 mg Multivitamins/Vitamin C (Multi-Delyn Liquid) 5 ml PO DAILY [facility] Last Admin: 09/13/17 10:19 Dose: 5 ml Pantoprazole Sodium (Protonix Susp) 40 mg PO DAILY [facility] Last Admin: 09/13/17 10:20 Dose: 40 mg Rosuvastatin Calcium (Crestor) 5 mg PO HS [facility] Last Admin: 09/12/17 21:27 Dose: 5 mg Saccharomyces Boulardii (Florastor) 250 mg PO BID [facility] Last Admin: 09/13/17 17:25 Dose: 250 mg Valproate Sodium (Depakene Oral Soln) 250 mg PEG Q12 [facility] Last Admin: 09/13/17 10:18 Dose: 250 mg Zinc Sulfate (Zinc Sulfate 220 Mg Cap) 220 mg PO DAILY [facility] Last Admin: 09/13/17 10:20 Dose: 220 mg - Labs Labs: 09/13/17 06:11 09/13/17 06:12 PT 22.0 SECONDS (9.7-12.2) H 09/07/17 06:08 INR 2.0 09/07/17 06:08 APTT 43 SECONDS (21-34) H 09/07/17 06:08
[2017-09-13] MEDS: Albumin Human 25% (12.5 gm/50 ml) IVPB SCH (21:08)
--- NOTE | 2017-09-13 23:47 | CP.PCM.PN ---
Subjective - Date & Time of Evaluation Date of Evaluation: 09/13/17 Time of Evaluation: 18:00 - Subjective Subjective: Pt seen and evaluated at bedside, is barely responsive,he becomes tacypneac, on MV, non weanable, tracheotomy has thin secretions Objective - Vital Signs/Intake and Output Vital Signs (last 24 hours): Temp Pulse Resp BP Pulse Ox 98.7 F 93 H 20 74/39 L 98 09/13/17 20:00 09/13/17 20:00 09/13/17 20:00 09/13/17 20:00 09/13/17 20:00 Intake and Output: 09/13/17 09/14/17 18:59 06:59 Intake Total 580 10 Output Total 280 Balance 300 10 - Medications Medications: Current Medications Acetaminophen (Tylenol 650mg/20.3ml Solution Ud) 650 mg PO Q6 PRN PRN Reason: Fever >100.4 F Last Admin: 09/13/17 16:14 Dose: 650 mg Albumin Human (Albumin Human 25% (12.5 Gm/50 Ml)) 25 gm IVPB Q8 [facility] Stop: 09/14/17 14:01 Last Admin: 09/13/17 21:08 Dose: 25 gm Albuterol/Ipratropium (Duoneb 3 Mg/0.5 Mg (3 Ml) Ud) 3 ml INH RQ6 [facility] Last Admin: 09/13/17 19:08 Dose: 3 ml Amantadine HCl (Symmetrel) 100 mg PO DAILY [facility] Last Admin: 09/13/17 10:20 Dose: 100 mg Ascorbic Acid (Vitamin C 500 Mg Tab) 500 mg PO DAILY [facility] Last Admin: 09/13/17 10:20 Dose: 500 mg Carbamazepine (Tegretol) 100 mg PEG Q8 [facility] Last Admin: 09/13/17 21:11 Dose: 100 mg Dextrose (Dextrose 50% Inj) 0 ml IV STAT PRN; Protocol PRN Reason: Hypoglycemia Protocol Last Admin: 09/13/17 12:00 Dose: 50 ml Finasteride (Proscar) 5 mg PO DAILY [facility] Last Admin: 09/13/17 10:19 Dose: 5 mg Heparin Sodium (Porcine) (Heparin) 5,000 units SC Q12 [facility] Last Admin: 09/13/17 21:11 Dose: 5,000 units Meropenem 500 mg/ Sodium (Chloride) 100 mls @ 100 mls/hr IVPB Q8H [facility] PRN Reason: Protocol Last Admin: 09/13/17 18:14 Dose: 100 mls/hr Vancomycin/Sodium Chloride (Vancomycin 1 Gm/Ns 200 Ml) 1 gm in 200 mls @ 133 mls/hr IVPB DAILY [facility] PRN Reason: Protocol Stop: 09/18/17 10:01 Last Admin: 09/13/17 10:34 Dose: 133 mls/hr Metoclopramide HCl (Reglan) 10 mg IVP Q6H [facility] Last Admin: 09/13/17 18:13 Dose: 10 mg Metronidazole (Flagyl) 500 mg PEG TID [facility] PRN Reason: Protocol Last Admin: 09/13/17 17:25 Dose: 500 mg Midodrine (Proamatine) 5 mg PO TID [facility] Last Admin: 09/13/17 17:25 Dose: 5 mg Multivitamins/Vitamin C (Multi-Delyn Liquid) 5 ml PO DAILY [facility] Last Admin: 09/13/17 10:19 Dose: 5 ml Pantoprazole Sodium (Protonix Susp) 40 mg PO DAILY [facility] Last Admin: 09/13/17 10:20 Dose: 40 mg Rosuvastatin Calcium (Crestor) 5 mg PO HS [facility] Last Admin: 09/13/17 21:11 Dose: 5 mg Saccharomyces Boulardii (Florastor) 250 mg PO BID [facility] Last Admin: 09/13/17 17:25 Dose: 250 mg Valproate Sodium (Depakene Oral Soln) 250 mg PEG Q12 [facility] Last Admin: 09/13/17 21:11 Dose: 250 mg Zinc Sulfate (Zinc Sulfate 220 Mg Cap) 220 mg PO DAILY [facility] Last Admin: 09/13/17 10:20 Dose: 220 mg - Labs Labs: 09/13/17 06:11 09/13/17 06:12 PT 22.0 SECONDS (9.7-12.2) H 09/07/17 06:08 INR 2.0 09/07/17 06:08 APTT 43 SECONDS (21-34) H 09/07/17 06:08 - Constitutional Appears: Chronically Ill - Head Exam Head Exam: ATRAUMATIC, NORMAL INSPECTION, NORMOCEPHALIC - Eye Exam Eye Exam: EOMI, Normal appearance, PERRL Pupil Exam: NORMAL ACCOMODATION, PERRL - Respiratory Exam Respiratory Exam: Decreased Breath Sounds, Rales, Rhonchi - Cardiovascular Exam Cardiovascular Exam: REGULAR RHYTHM, +S1, +S2. absent: Murmur - GI/Abdominal Exam GI & Abdominal Exam: Soft, Normal Bowel Sounds. absent: Tenderness - Rectal Exam Rectal Exam: Deferred Assessment and Plan (1) Anemia Status: Acute (2) Respiratory failure Status: Acute (3) Sepsis Status: Acute (4) Status post tracheostomy Status: Acute (5) Toxic metabolic encephalopathy Status: Acute
--- NOTE | 2017-09-13 23:47 | PN ---
DATE: 09/13/2017 SUBJECTIVE: The patient is seen again today. The patient remains on the ventilator, the respiratory therapist tells me they are not able to do much. The patient remains sluggish. his eyes and is unresponsive, status post trach. PHYSICAL EXAMINATION: VITAL SIGNS: Blood pressure remains on the low side. NECK: Supple. LUNGS: Have bilateral rhonchi. HEART: S1, S2 are tachycardic. ABDOMEN: Soft. Nontender. EXTREMITIES: Remained with edema. Left leg has heel ulcer. LABORATORY DATA: Labs are noted. Labs show white count is 6.1, hemoglobin 8.7, hematocrit 26.3, platelet count is 278. Chemistry shows his potassium is 4, chloride of 116, CO2 is 18, BUN is 18, creatinine 0.9 and total bilirubin is 4.2, so bilirubin is up, but AST and ALT have decreased. Serology lo, we have already done you know fungal as well as TB test was indeterminate. ASSESSMENT AND PLAN: Fungal was negative and vancomycin trough today is 13.3 hence will continue vancomycin at this time 1 gm daily and left heel is suspicious for a unstageable ulcer hence I wanted a bone scan, but prognosis overall appears very poor for this patient. He has respiratory failure, pneumonia, altered mental status, peripheral vascular disease with left heel ulcer, pneumonia, which we treated recently and he remains on the ventilator. Prognosis is guarded. Bladimir Muñoz MD
[2017-09-14] MEDS: Dextrose 50% SYRINGE Inj (50 ml) IV PRN ×2 (00:31→06:12)
[2017-09-14] MEDS: Albuterol-Ipratrop 3 mg / 0.5 (3 ml) UD INH SCH ×3 (01:16→13:51)
[2017-09-14] MEDS: Meropenem 500 MG in Sodium Chloride 0.9% 100 ML IVPB SCH ×3 (02:30→18:28)
[2017-09-14] MEDS: carBAMazepine Chew Tab 100 MG Chew Tab PEG SCH ×3 (05:36→21:15)
[2017-09-14] MEDS: Albumin Human 25% (12.5 gm/50 ml) IVPB SCH ×2 (05:36→13:14)
[2017-09-14] MEDS: Pantoprazole 40 mg Susp UD PO SCH (10:50)
[2017-09-14] MEDS: Saccharomyces Boulardi 250 mg Cap PO SCH ×2 (10:50→18:29)
[2017-09-14] MEDS: Amantadine 50 mg/5 ml Syrup (473 ml) PO SCH (10:51)
[2017-09-14] MEDS: Multiple Vitamins Oral Solution PO SCH (10:52)
[2017-09-14] MEDS: Valproic Acid 250 mg/5 ml UD Cup PEG SCH ×2 (10:52→21:15)
[2017-09-14] MEDS: Vancomycin 1 gm/NS 200 ml 1 GM/200 ML BAG IVPB SCH (10:53)
--- NOTE | 2017-09-14 11:52 | CP.PCM.PN ---
Subjective - Date & Time of Evaluation Date of Evaluation: 09/14/17 Time of Evaluation: 07:00 - Subjective Subjective: Pulmonary Follow up Covering Dr. [place] The Patient was seen and examined at the bedside, Medical records reviewed, and management issues were discussed and formulated with the house staff. Events reviewed Remains orally intubated, mechanically vented, On PRVC: 40%Fi02, 14 RR, 400 TV, 5 PEEP Remains lethargic Patient did not tolerate vent weaning trial today +Tachypnea + generalized weakness, edema with anasarca. Status post bronchoscopy Status post Tracheostomy 09/07 For LTACH placement Tolerating tube feeding Afebrile, copious amount of resp secretions Objective - Vital Signs/Intake and Output Vital Signs (last 24 hours): Temp Pulse Resp BP Pulse Ox 98.9 F 102 H 17 93/54 L 100 09/14/17 08:00 09/14/17 08:00 09/14/17 04:00 09/14/17 04:00 09/14/17 04:00 Intake and Output: 09/14/17 09/14/17 06:59 18:59 Intake Total 325 Balance 325 - Medications Medications: Current Medications Acetaminophen (Tylenol 650mg/20.3ml Solution Ud) 650 mg PO Q6 PRN PRN Reason: Fever >100.4 F Last Admin: 09/13/17 16:14 Dose: 650 mg Albumin Human (Albumin Human 25% (12.5 Gm/50 Ml)) 25 gm IVPB Q8 [facility] Stop: 09/14/17 14:01 Last Admin: 09/14/17 05:36 Dose: 25 gm Albuterol/Ipratropium (Duoneb 3 Mg/0.5 Mg (3 Ml) Ud) 3 ml INH RQ6 [facility] Last Admin: 09/14/17 01:16 Dose: 3 ml Amantadine HCl (Symmetrel) 100 mg PO DAILY [facility] Last Admin: 09/14/17 10:51 Dose: 100 mg Ascorbic Acid (Vitamin C 500 Mg Tab) 500 mg PO DAILY [facility] Last Admin: 09/14/17 10:50 Dose: 500 mg Carbamazepine (Tegretol) 100 mg PEG Q8 [facility] Last Admin: 09/14/17 05:36 Dose: 100 mg Dextrose (Dextrose 50% Inj) 0 ml IV STAT PRN; Protocol PRN Reason: Hypoglycemia Protocol Last Admin: 09/14/17 06:12 Dose: 50 ml Finasteride (Proscar) 5 mg PO DAILY [facility] Last Admin: 09/14/17 10:50 Dose: 5 mg Heparin Sodium (Porcine) (Heparin) 5,000 units SC Q12 [facility] Last Admin: 09/14/17 10:50 Dose: 5,000 units Meropenem 500 mg/ Sodium (Chloride) 100 mls @ 100 mls/hr IVPB Q8H [facility] PRN Reason: Protocol Last Admin: 09/14/17 10:52 Dose: 100 mls/hr Vancomycin/Sodium Chloride (Vancomycin 1 Gm/Ns 200 Ml) 1 gm in 200 mls @ 133 mls/hr IVPB DAILY [facility] PRN Reason: Protocol Stop: 09/18/17 10:01 Last Admin: 09/14/17 10:53 Dose: 133 mls/hr Metoclopramide HCl (Reglan) 10 mg IVP Q6H [facility] Last Admin: 09/14/17 05:38 Dose: 10 mg Metronidazole (Flagyl) 500 mg PEG TID [facility] PRN Reason: Protocol Last Admin: 09/14/17 10:50 Dose: 500 mg Midodrine (Proamatine) 5 mg PO TID [facility] Last Admin: 09/14/17 10:51 Dose: 5 mg Multivitamins/Vitamin C (Multi-Delyn Liquid) 5 ml PO DAILY [facility] Last Admin: 09/14/17 10:52 Dose: 5 ml Pantoprazole Sodium (Protonix Susp) 40 mg PO DAILY [facility] Last Admin: 09/14/17 10:50 Dose: 40 mg Rosuvastatin Calcium (Crestor) 5 mg PO HS [facility] Last Admin: 09/13/17 21:11 Dose: 5 mg Saccharomyces Boulardii (Florastor) 250 mg PO BID [facility] Last Admin: 09/14/17 10:50 Dose: 250 mg Valproate Sodium (Depakene Oral Soln) 250 mg PEG Q12 [facility] Last Admin: 09/14/17 10:52 Dose: 250 mg Zinc Sulfate (Zinc Sulfate 220 Mg Cap) 220 mg PO DAILY [facility] Last Admin: 09/14/17 10:50 Dose: 220 mg - Labs Labs: 09/13/17 06:11 09/13/17 06:12 PT 22.0 SECONDS (9.7-12.2) H 09/07/17 06:08 INR 2.0 09/07/17 06:08 APTT 43 SECONDS (21-34) H 09/07/17 06:08 - Constitutional Appears: Well, Non-toxic - Head Exam Head Exam: ATRAUMATIC - Eye Exam Eye Exam: absent: Conjunctival injection Pupil Exam: PERRL - Neck Exam Neck Exam: Full ROM - Respiratory Exam Respiratory Exam: Clear to Ausculation Bilateral, NORMAL BREATHING PATTERN. absent: Accessory Muscle Use - Cardiovascular Exam Cardiovascular Exam: REGULAR RHYTHM - GI/Abdominal Exam GI & Abdominal Exam: Soft, Normal Bowel Sounds - Extremities Exam Extremities Exam: absent: Calf Tenderness Assessment and Plan (1) Respiratory failure Assessment & Plan: Acute Hypoxic Res. Failure from pnaumonia and Asthma/COPD Intubated Emergently: On PRVC: 40%Fi02, 18 RR, 400 TV, 5 PEEP DuoNebs Schedule Afebrile, minimal resp secretions Status post bronchoscopy Status post Tracheostomy 09/07 Aggressive pulmonary toilet For LTACH placement Status: Acute (2) Pneumonia Status: Acute (3) COPD (chronic obstructive pulmonary disease) Assessment & Plan: Under control Continue Albuterol/Ipratropium (Duoneb) INH RQ6 [facility] Status: Chronic (4) Sepsis Assessment & Plan: copious amount of secretions Blood Cultures - NEGATIVE Urine Cultures - NEGATIVE Sputum Cultures - Normal florw MRSA S/P 2gm Cefepime given in ED S/P Zosyn and Vanc. currently on IV Vanco, Metronidazole and Meropenem 500 mg/ Sodium (Chloride) 100 mls @ 100 mls/hr IVPB Q8H Status: Acute (5) Failure to thrive Status: Acute
--- NOTE | 2017-09-14 16:40 | CP.PCM.PN ---
Subjective - Date & Time of Evaluation Date of Evaluation: 09/14/17 Time of Evaluation: 16:38 - Subjective Subjective: PT SEEN BY DR. RUDD DURING ROUNDS. Juany RUDD REQUESTING BLOCK [employer] TO ORDER CT HEAD WITHOUT CONTRAST. I MADE DR. RUDD AWARE THAT PT IS ACCEPTED AT [facility] AND CAN BE TRANSFERRED THERE TODAY OR TOMORROW. PER DR. RUDD WILL HOLD OFF ON THE D/C TO [facility] HE IS NOW CONSIDERING HOSPICE EVALUATION. DR. RUDD STATES HE WILL CONTACT HOSPICE HIMSELF AND FOR THE BLOCK CUBER NOT TO ORDER A HOSPICE EVAL. I HAVE NOTIFIED ICU EXTRACT MIXER OF THIS AND THE CT HEAD. NO FURTHER ORDERS. Objective - Vital Signs/Intake and Output Vital Signs (last 24 hours): Temp Pulse Resp BP Pulse Ox 99.4 F 96 H 16 72/42 L 100 09/14/17 12:00 09/14/17 12:00 09/14/17 12:00 09/14/17 12:00 09/14/17 04:00 Intake and Output: 09/14/17 09/14/17 06:59 18:59 Intake Total 325 Balance 325 - Medications Medications: Current Medications Acetaminophen (Tylenol 650mg/20.3ml Solution Ud) 650 mg PO Q6 PRN PRN Reason: Fever >100.4 F Last Admin: 09/13/17 16:14 Dose: 650 mg Albuterol/Ipratropium (Duoneb 3 Mg/0.5 Mg (3 Ml) Ud) 3 ml INH RQ6 [facility] Last Admin: 09/14/17 13:51 Dose: 3 ml Amantadine HCl (Symmetrel) 100 mg PO DAILY [facility] Last Admin: 09/14/17 10:51 Dose: 100 mg Ascorbic Acid (Vitamin C 500 Mg Tab) 500 mg PO DAILY [facility] Last Admin: 09/14/17 10:50 Dose: 500 mg Carbamazepine (Tegretol) 100 mg PEG Q8 [facility] Last Admin: 09/14/17 13:15 Dose: 100 mg Dextrose (Dextrose 50% Inj) 0 ml IV STAT PRN; Protocol PRN Reason: Hypoglycemia Protocol Last Admin: 09/14/17 06:12 Dose: 50 ml Finasteride (Proscar) 5 mg PO DAILY [facility] Last Admin: 09/14/17 10:50 Dose: 5 mg Heparin Sodium (Porcine) (Heparin) 5,000 units SC Q12 [facility] Last Admin: 09/14/17 10:50 Dose: 5,000 units Meropenem 500 mg/ Sodium (Chloride) 100 mls @ 100 mls/hr IVPB Q8H [facility] PRN Reason: Protocol Last Admin: 09/14/17 10:52 Dose: 100 mls/hr Vancomycin/Sodium Chloride (Vancomycin 1 Gm/Ns 200 Ml) 1 gm in 200 mls @ 133 mls/hr IVPB DAILY [facility] PRN Reason: Protocol Stop: 09/18/17 10:01 Last Admin: 09/14/17 10:53 Dose: 133 mls/hr Metoclopramide HCl (Reglan) 10 mg IVP Q6H [facility] Last Admin: 09/14/17 13:17 Dose: 10 mg Metronidazole (Flagyl) 500 mg PEG TID [facility] PRN Reason: Protocol Last Admin: 09/14/17 13:13 Dose: 500 mg Midodrine (Proamatine) 5 mg PO TID [facility] Last Admin: 09/14/17 13:13 Dose: 5 mg Multivitamins/Vitamin C (Multi-Delyn Liquid) 5 ml PO DAILY [facility] Last Admin: 09/14/17 10:52 Dose: 5 ml Pantoprazole Sodium (Protonix Susp) 40 mg PO DAILY [facility] Last Admin: 09/14/17 10:50 Dose: 40 mg Rosuvastatin Calcium (Crestor) 5 mg PO HS [facility] Last Admin: 09/13/17 21:11 Dose: 5 mg Saccharomyces Boulardii (Florastor) 250 mg PO BID [facility] Last Admin: 09/14/17 10:50 Dose: 250 mg Valproate Sodium (Depakene Oral Soln) 250 mg PEG Q12 [facility] Last Admin: 09/14/17 10:52 Dose: 250 mg Zinc Sulfate (Zinc Sulfate 220 Mg Cap) 220 mg PO DAILY [facility] Last Admin: 09/14/17 10:50 Dose: 220 mg - Labs Labs: 09/13/17 06:11 09/13/17 06:12 PT 22.0 SECONDS (9.7-12.2) H 09/07/17 06:08 INR 2.0 09/07/17 06:08 APTT 43 SECONDS (21-34) H 09/07/17 06:08
[2017-09-14] MEDS ORDERED: Dextrose 50% SYRINGE Inj (50 ml) ONE (17:51)
--- NOTE | 2017-09-14 17:52 | CT ---
PROCEDURE: CT HEAD WITHOUT CONTRAST. HISTORY: LETHARGIC; PERIORBITAL SWELLING COMPARISON: None available. TECHNIQUE: Axial computed tomography images were obtained through the head/brain without intravenous contrast. Radiation dose: Total exam DLP = 1326.12 mGy-cm. This CT exam was performed using one or more of the following dose reduction techniques: Automated exposure control, adjustment of the mA and/or kV according to patient size, and/or use of iterative reconstruction technique. FINDINGS: HEMORRHAGE: No intracranial hemorrhage. BRAIN: Good corticomedullary differentiation is seen. Diffuse expansion of the ventriculosulcal and cisternal spaces is appreciated with white matter lucency compatible with diffuse cerebral atrophy and chronic microangiopathy. No suspicious extra-axial fluid collection is identified and the midline brain anatomy appears grossly nonfocal as imaged. There is no mass effect throughout. VENTRICLES: Overall ventricular volume could be a function of central atrophy though underlying normal pressure hydrocephalus is not completely excluded. CALVARIUM: Unremarkable. PARANASAL SINUSES: Unremarkable as visualized. No significant inflammatory changes. MASTOID AIR CELLS: Unremarkable as visualized. No inflammatory changes. OTHER FINDINGS: None. IMPRESSION: Age-related diffuse cerebral atrophy chronic microangiopathy are identified and appear relatively prominent. Underlying normal pressure hydrocephalus is difficult to completely exclude.
--- NOTE | 2017-09-14 21:38 | CP.PCM.PN ---
Subjective - Date & Time of Evaluation Date of Evaluation: 09/14/17 Time of Evaluation: 03:15 - Subjective Subjective: dictated Objective - Vital Signs/Intake and Output Vital Signs (last 24 hours): Temp Pulse Resp BP Pulse Ox 98.9 F 98 H 21 84/40 L 100 09/14/17 20:00 09/14/17 20:00 09/14/17 16:00 09/14/17 16:00 09/14/17 04:00 - Medications Medications: Current Medications Acetaminophen (Tylenol 650mg/20.3ml Solution Ud) 650 mg PO Q6 PRN PRN Reason: Fever >100.4 F Last Admin: 09/13/17 16:14 Dose: 650 mg Albuterol/Ipratropium (Duoneb 3 Mg/0.5 Mg (3 Ml) Ud) 3 ml INH RQ6 [facility] Last Admin: 09/14/17 13:51 Dose: 3 ml Amantadine HCl (Symmetrel) 100 mg PO DAILY [facility] Last Admin: 09/14/17 10:51 Dose: 100 mg Ascorbic Acid (Vitamin C 500 Mg Tab) 500 mg PO DAILY [facility] Last Admin: 09/14/17 10:50 Dose: 500 mg Carbamazepine (Tegretol) 100 mg PEG Q8 [facility] Last Admin: 09/14/17 21:15 Dose: 100 mg Dextrose (Dextrose 50% Inj) 0 ml IV STAT PRN; Protocol PRN Reason: Hypoglycemia Protocol Last Admin: 09/14/17 06:12 Dose: 50 ml Finasteride (Proscar) 5 mg PO DAILY [facility] Last Admin: 09/14/17 10:50 Dose: 5 mg Heparin Sodium (Porcine) (Heparin) 5,000 units SC Q12 [facility] Last Admin: 09/14/17 21:15 Dose: 5,000 units Meropenem 500 mg/ Sodium (Chloride) 100 mls @ 100 mls/hr IVPB Q8H [facility] PRN Reason: Protocol Last Admin: 09/14/17 18:28 Dose: 100 mls/hr Vancomycin/Sodium Chloride (Vancomycin 1 Gm/Ns 200 Ml) 1 gm in 200 mls @ 133 mls/hr IVPB DAILY [facility] PRN Reason: Protocol Stop: 09/18/17 10:01 Last Admin: 09/14/17 10:53 Dose: 133 mls/hr Metoclopramide HCl (Reglan) 10 mg IVP Q6H [facility] Last Admin: 09/14/17 18:25 Dose: 10 mg Metronidazole (Flagyl) 500 mg PEG TID [facility] PRN Reason: Protocol Last Admin: 09/14/17 18:27 Dose: 500 mg Midodrine (Proamatine) 5 mg PO TID [facility] Last Admin: 09/14/17 18:27 Dose: 5 mg Multivitamins/Vitamin C (Multi-Delyn Liquid) 5 ml PO DAILY [facility] Last Admin: 09/14/17 10:52 Dose: 5 ml Pantoprazole Sodium (Protonix Susp) 40 mg PO DAILY [facility] Last Admin: 09/14/17 10:50 Dose: 40 mg Rosuvastatin Calcium (Crestor) 5 mg PO HS [facility] Last Admin: 09/14/17 21:15 Dose: 5 mg Saccharomyces Boulardii (Florastor) 250 mg PO BID [facility] Last Admin: 09/14/17 18:29 Dose: 250 mg Valproate Sodium (Depakene Oral Soln) 250 mg PEG Q12 [facility] Last Admin: 09/14/17 21:15 Dose: 250 mg Zinc Sulfate (Zinc Sulfate 220 Mg Cap) 220 mg PO DAILY [facility] Last Admin: 09/14/17 10:50 Dose: 220 mg - Labs Labs: 09/13/17 06:11 09/13/17 06:12 PT 22.0 SECONDS (9.7-12.2) H 09/07/17 06:08 INR 2.0 09/07/17 06:08 APTT 43 SECONDS (21-34) H 09/07/17 06:08
--- NOTE | 2017-09-15 01:01 | PN ---
DATE: 09/14/2017 SUBJECTIVE: The patient remains intubated with the trach vent and still very lethargic, unresponsive. PHYSICAL EXAMINATION: VITAL SIGNS: T-max is 98.9, heart rate remains 98. He has a trach. Blood pressure remains low, 84/40. Respirations are 21. LUNGS: Occasional rhonchi bilaterally. HEART: S1, S2, tachycardic, around 98 to 100. ABDOMEN: Soft, nontender. EXTREMITIES: He has a right AKA. Left leg has edema. Also has pressure decubitus on the lateral malleolus as well as on the heel. He remains unresponsive, however, he is not having any fevers. Blood pressure remains on low side. He is still on antibiotics, as he remains hypotensive. PLAN: He should be comfort care in my recommendation as we have tried our best, and he still is not recuperating well and Dr. Ann, it seems is going to be discussing with the family, and cultures have all been negative. He did have mycoplasma, IgM. He underwent bronchoscopy. We have screened him for fungus. We have screened him for TB, and he does have pneumonia on the right side, and now is not weanable from the ventilator. Bladimir Muñoz MD
[2017-09-15] MEDS: Albuterol-Ipratrop 3 mg / 0.5 (3 ml) UD INH SCH ×2 (01:31→07:28)
[2017-09-15] MEDS: Meropenem 500 MG in Sodium Chloride 0.9% 100 ML IVPB SCH ×3 (02:10→18:00)
[2017-09-15] MEDS: carBAMazepine Chew Tab 100 MG Chew Tab PEG SCH ×3 (05:38→21:20)
[2017-09-15 06:18] LABS: BASO # 0.1 K/uL (0.0-0.2); BASO % 0.9 % (0.0-2.0); EOS % 0.2 % (0.0-4.0); HEMOGLOBIN 8.8 g/dL (12.0-18.0); LYMPH % 32.6 % (20.0-40.0); MEAN CELL VOLUME 88.1 fL (80.0-94.0); MEAN CORPUSCULAR HEMOGLOBIN 28.9 pg (27.0-31.0); MEAN CORPUSCULAR HGB CONC 32.8 g/dL (33.0-37.0); MEAN PLATELET VOLUME 9.7 fL (7.2-11.7); MONO # 1.6 K/uL (0.0-0.8); MONO % 27.3 % (0.0-10.0); NEUT # 2.4 K/uL (1.8-7.0); NRBC % 0.4 % (0.0-2.0); PLATELET COUNT 253 K/uL (130-400); RBC 3.04 Mil/uL (4.40-5.90)
[2017-09-15 06:33] LABS: ALB/GLOB RATIO 0.6 (1.0-2.1); ALBUMIN 2.4 g/dL (3.5-5.0); ALT/SGPT 18 U/L (21-72); AST/SGOT 44 U/L (17-59); BLOOD UREA NITROGEN 22 mg/dL (9-20); CALCIUM 7.1 mg/dl (8.6-10.4); GFR AFRICAN-AMERICAN > 60; GFR NON-AFRICAN AMERICAN > 60
[2017-09-15 08:30] LABS: BANDS 1 % (0-2); LYMPHOCYTE 42 % (20-40); MONOCYTE 29 % (0-10); NEUTROPHIL 38 % (50-75); PLATELET ESTIMATE NORMAL (NORMAL); REACTIVE LYMPHOCYTES 32 % (0-0); TOTAL CELLS COUNTED 100
[2017-09-15 08:31] LABS: ANISOCYTOSIS SLIGHT; MICROCYTOSIS SLIGHT; POIKILOCYTOSIS SLIGHT
[2017-09-15 08:32] LABS: BURR CELLS SLIGHT; HYPOCHROMIC MODERATE; LARGE PLATELETS PRESENT; TARGET CELLS SLIGHT
--- NOTE | 2017-09-15 08:54 | CP.PCM.PN ---
Subjective - Date & Time of Evaluation Date of Evaluation: 09/14/17 Time of Evaluation: 19:00 - Subjective Subjective: Pt is seen and examined, is sick, terminal, his B.P is low cannot go for MRI of brain, is afebrile, unresponsive, opens eyes in response to tactile stimuli only Objective - Vital Signs/Intake and Output Vital Signs (last 24 hours): Temp Pulse Resp BP Pulse Ox 99 F 99 H 29 H 88/52 L 99 09/15/17 04:00 09/14/17 20:00 09/14/17 20:00 09/14/17 19:54 09/14/17 20:00 Intake and Output: 09/15/17 09/15/17 06:59 18:59 Intake Total 1100 Output Total 350 Balance 750 - Medications Medications: Current Medications Acetaminophen (Tylenol 650mg/20.3ml Solution Ud) 650 mg PO Q6 PRN PRN Reason: Fever >100.4 F Last Admin: 09/13/17 16:14 Dose: 650 mg Albuterol/Ipratropium (Duoneb 3 Mg/0.5 Mg (3 Ml) Ud) 3 ml INH RQ6 [facility] Last Admin: 09/15/17 07:28 Dose: 3 ml Amantadine HCl (Symmetrel) 100 mg PO DAILY [facility] Last Admin: 09/14/17 10:51 Dose: 100 mg Ascorbic Acid (Vitamin C 500 Mg Tab) 500 mg PO DAILY [facility] Last Admin: 09/14/17 10:50 Dose: 500 mg Carbamazepine (Tegretol) 100 mg PEG Q8 [facility] Last Admin: 09/15/17 05:38 Dose: 100 mg Dextrose (Dextrose 50% Inj) 0 ml IV STAT PRN; Protocol PRN Reason: Hypoglycemia Protocol Last Admin: 09/14/17 06:12 Dose: 50 ml Finasteride (Proscar) 5 mg PO DAILY [facility] Last Admin: 09/14/17 10:50 Dose: 5 mg Heparin Sodium (Porcine) (Heparin) 5,000 units SC Q12 [facility] Last Admin: 09/14/17 21:15 Dose: 5,000 units Meropenem 500 mg/ Sodium (Chloride) 100 mls @ 100 mls/hr IVPB Q8H [facility] PRN Reason: Protocol Last Admin: 09/15/17 02:10 Dose: 100 mls/hr Vancomycin/Sodium Chloride (Vancomycin 1 Gm/Ns 200 Ml) 1 gm in 200 mls @ 133 mls/hr IVPB DAILY [facility] PRN Reason: Protocol Stop: 09/18/17 10:01 Last Admin: 09/14/17 10:53 Dose: 133 mls/hr Metoclopramide HCl (Reglan) 10 mg IVP Q6H [facility] Last Admin: 09/15/17 05:37 Dose: 10 mg Metronidazole (Flagyl) 500 mg PEG TID [facility] PRN Reason: Protocol Last Admin: 09/14/17 18:27 Dose: 500 mg Midodrine (Proamatine) 5 mg PO TID [facility] Last Admin: 09/14/17 18:27 Dose: 5 mg Multivitamins/Vitamin C (Multi-Delyn Liquid) 5 ml PO DAILY [facility] Last Admin: 09/14/17 10:52 Dose: 5 ml Pantoprazole Sodium (Protonix Susp) 40 mg PO DAILY [facility] Last Admin: 09/14/17 10:50 Dose: 40 mg Rosuvastatin Calcium (Crestor) 5 mg PO HS [facility] Last Admin: 09/14/17 21:15 Dose: 5 mg Saccharomyces Boulardii (Florastor) 250 mg PO BID [facility] Last Admin: 09/14/17 18:29 Dose: 250 mg Valproate Sodium (Depakene Oral Soln) 250 mg PEG Q12 [facility] Last Admin: 09/14/17 21:15 Dose: 250 mg Zinc Sulfate (Zinc Sulfate 220 Mg Cap) 220 mg PO DAILY [facility] Last Admin: 09/14/17 10:50 Dose: 220 mg - Labs Labs: 09/15/17 06:07 09/15/17 06:04 PT 22.0 SECONDS (9.7-12.2) H 09/07/17 06:08 INR 2.0 09/07/17 06:08 APTT 43 SECONDS (21-34) H 09/07/17 06:08 - Constitutional Appears: No Acute Distress, Chronically Ill - Head Exam Head Exam: ATRAUMATIC, NORMAL INSPECTION, NORMOCEPHALIC - Eye Exam Eye Exam: EOMI, Normal appearance, PERRL Pupil Exam: NORMAL ACCOMODATION, PERRL - Respiratory Exam Respiratory Exam: Clear to Ausculation Bilateral, NORMAL BREATHING PATTERN - Cardiovascular Exam Cardiovascular Exam: REGULAR RHYTHM, +S1, +S2. absent: Murmur - GI/Abdominal Exam GI & Abdominal Exam: Soft, Normal Bowel Sounds. absent: Tenderness Assessment and Plan (1) Sepsis Status: Acute (2) Fever Status: Acute (3) Seizure disorder Status: Acute (4) COPD (chronic obstructive pulmonary disease) Status: Chronic (5) PVD (peripheral vascular disease) Status: Chronic (6) Respiratory failure Assessment & Plan: Mechanical ventilator if needed hospice eval Status: Acute
--- NOTE | 2017-09-15 08:55 | CP.PCM.PN ---
Subjective - Date & Time of Evaluation Date of Evaluation: 09/15/17 Time of Evaluation: 20:00 - Subjective Subjective: Pt is seen and examined, is sick, terminal, his B.P is low cannot go for MRI of brain, is afebrile, unresponsive Objective - Vital Signs/Intake and Output Vital Signs (last 24 hours): Temp Pulse Resp BP Pulse Ox 99 F 99 H 29 H 88/52 L 99 09/15/17 04:00 09/14/17 20:00 09/14/17 20:00 09/14/17 19:54 09/14/17 20:00 Intake and Output: 09/15/17 09/15/17 06:59 18:59 Intake Total 1100 Output Total 350 Balance 750 - Medications Medications: Current Medications Acetaminophen (Tylenol 650mg/20.3ml Solution Ud) 650 mg PO Q6 PRN PRN Reason: Fever >100.4 F Last Admin: 09/13/17 16:14 Dose: 650 mg Albuterol/Ipratropium (Duoneb 3 Mg/0.5 Mg (3 Ml) Ud) 3 ml INH RQ6 [facility] Last Admin: 09/15/17 07:28 Dose: 3 ml Amantadine HCl (Symmetrel) 100 mg PO DAILY [facility] Last Admin: 09/14/17 10:51 Dose: 100 mg Ascorbic Acid (Vitamin C 500 Mg Tab) 500 mg PO DAILY [facility] Last Admin: 09/14/17 10:50 Dose: 500 mg Carbamazepine (Tegretol) 100 mg PEG Q8 [facility] Last Admin: 09/15/17 05:38 Dose: 100 mg Dextrose (Dextrose 50% Inj) 0 ml IV STAT PRN; Protocol PRN Reason: Hypoglycemia Protocol Last Admin: 09/14/17 06:12 Dose: 50 ml Finasteride (Proscar) 5 mg PO DAILY [facility] Last Admin: 09/14/17 10:50 Dose: 5 mg Heparin Sodium (Porcine) (Heparin) 5,000 units SC Q12 [facility] Last Admin: 09/14/17 21:15 Dose: 5,000 units Meropenem 500 mg/ Sodium (Chloride) 100 mls @ 100 mls/hr IVPB Q8H [facility] PRN Reason: Protocol Last Admin: 09/15/17 02:10 Dose: 100 mls/hr Vancomycin/Sodium Chloride (Vancomycin 1 Gm/Ns 200 Ml) 1 gm in 200 mls @ 133 mls/hr IVPB DAILY [facility] PRN Reason: Protocol Stop: 09/18/17 10:01 Last Admin: 09/14/17 10:53 Dose: 133 mls/hr Metoclopramide HCl (Reglan) 10 mg IVP Q6H [facility] Last Admin: 09/15/17 05:37 Dose: 10 mg Metronidazole (Flagyl) 500 mg PEG TID [facility] PRN Reason: Protocol Last Admin: 09/14/17 18:27 Dose: 500 mg Midodrine (Proamatine) 5 mg PO TID [facility] Last Admin: 09/14/17 18:27 Dose: 5 mg Multivitamins/Vitamin C (Multi-Delyn Liquid) 5 ml PO DAILY [facility] Last Admin: 09/14/17 10:52 Dose: 5 ml Pantoprazole Sodium (Protonix Susp) 40 mg PO DAILY [facility] Last Admin: 09/14/17 10:50 Dose: 40 mg Rosuvastatin Calcium (Crestor) 5 mg PO HS [facility] Last Admin: 09/14/17 21:15 Dose: 5 mg Saccharomyces Boulardii (Florastor) 250 mg PO BID [facility] Last Admin: 09/14/17 18:29 Dose: 250 mg Valproate Sodium (Depakene Oral Soln) 250 mg PEG Q12 [facility] Last Admin: 09/14/17 21:15 Dose: 250 mg Zinc Sulfate (Zinc Sulfate 220 Mg Cap) 220 mg PO DAILY [facility] Last Admin: 09/14/17 10:50 Dose: 220 mg - Labs Labs: 09/15/17 06:07 09/15/17 06:04 PT 22.0 SECONDS (9.7-12.2) H 09/07/17 06:08 INR 2.0 09/07/17 06:08 APTT 43 SECONDS (21-34) H 09/07/17 06:08 Assessment and Plan (1) Sepsis Status: Acute (2) Fever Status: Acute (3) Seizure disorder Status: Acute (4) COPD (chronic obstructive pulmonary disease) Status: Chronic (5) PVD (peripheral vascular disease) Status: Chronic (6) Respiratory failure Status: Acute
[2017-09-15] MEDS: Saccharomyces Boulardi 250 mg Cap PO SCH ×2 (09:34→17:42)
[2017-09-15] MEDS: Pantoprazole 40 mg Susp UD PO SCH (09:34)
[2017-09-15] MEDS: Amantadine 50 mg/5 ml Syrup (473 ml) PO SCH (09:35)
[2017-09-15] MEDS: Multiple Vitamins Oral Solution PO SCH (09:36)
[2017-09-15] MEDS: Valproic Acid 250 mg/5 ml UD Cup PEG SCH ×2 (09:38→21:20)
[2017-09-15] MEDS: Vancomycin 1 gm/NS 200 ml 1 GM/200 ML BAG IVPB SCH (09:39)
[2017-09-15] MEDS: Acetaminophen 650mg/20.3ml solution UD PO PRN ×2 (12:01→20:23)
[2017-09-15] MEDS: Micafungin 100 MG in Sodium Chloride 0.9% 100 ML IV SCH (15:50)
--- NOTE | 2017-09-15 17:47 | CP.PCM.PN ---
Subjective - Date & Time of Evaluation Date of Evaluation: 09/15/17 Time of Evaluation: 11:40 - Subjective Subjective: patient seen and examined Status post tracheostomy patient is not toleratingweaning Congested and copious secretions through the ET tube continue antibiotics Continue PEG feeding Objective - Vital Signs/Intake and Output Vital Signs (last 24 hours): Temp Pulse Resp BP Pulse Ox 99.8 F H 102 H 26 H 87/50 L 95 09/15/17 16:00 09/15/17 16:00 09/15/17 16:00 09/15/17 16:00 09/15/17 16:00 Intake and Output: 09/15/17 09/15/17 06:59 18:59 Intake Total 1100 Output Total 350 Balance 750 - Medications Medications: Current Medications Acetaminophen (Tylenol 650mg/20.3ml Solution Ud) 650 mg PO Q6 PRN PRN Reason: Fever >100.4 F Last Admin: 09/15/17 12:01 Dose: 650 mg Amantadine HCl (Symmetrel) 100 mg PO DAILY [facility] Last Admin: 09/15/17 09:35 Dose: 100 mg Ascorbic Acid (Vitamin C 500 Mg Tab) 500 mg PO DAILY [facility] Last Admin: 09/15/17 09:34 Dose: 500 mg Carbamazepine (Tegretol) 100 mg PEG Q8 [facility] Last Admin: 09/15/17 14:08 Dose: 100 mg Dextrose (Dextrose 50% Inj) 0 ml IV STAT PRN; Protocol PRN Reason: Hypoglycemia Protocol Last Admin: 09/14/17 06:12 Dose: 50 ml Finasteride (Proscar) 5 mg PO DAILY [facility] Last Admin: 09/15/17 09:34 Dose: 5 mg Heparin Sodium (Porcine) (Heparin) 5,000 units SC Q12 [facility] Last Admin: 09/15/17 09:34 Dose: 5,000 units Meropenem 500 mg/ Sodium (Chloride) 100 mls @ 100 mls/hr IVPB Q8H [facility] PRN Reason: Protocol Last Admin: 09/15/17 11:16 Dose: 100 mls/hr Vancomycin/Sodium Chloride (Vancomycin 1 Gm/Ns 200 Ml) 1 gm in 200 mls @ 133 mls/hr IVPB DAILY [facility] PRN Reason: Protocol Stop: 09/18/17 10:01 Last Admin: 09/15/17 09:39 Dose: 133 mls/hr Micafungin Sodium 100 mg/ (Sodium Chloride) 100 mls @ 100 mls/hr IV Q24H [facility] PRN Reason: Protocol Last Admin: 09/15/17 15:50 Dose: 100 mls/hr Metoclopramide HCl (Reglan) 10 mg IVP Q6H [facility] Last Admin: 09/15/17 11:26 Dose: 10 mg Metronidazole (Flagyl) 500 mg PEG TID [facility] PRN Reason: Protocol Last Admin: 09/15/17 14:08 Dose: 500 mg Midodrine (Proamatine) 5 mg PO TID [facility] Last Admin: 09/15/17 17:42 Dose: 5 mg Multivitamins/Vitamin C (Multi-Delyn Liquid) 5 ml PO DAILY [facility] Last Admin: 09/15/17 09:36 Dose: 5 ml Pantoprazole Sodium (Protonix Susp) 40 mg PO DAILY [facility] Last Admin: 09/15/17 09:34 Dose: 40 mg Rosuvastatin Calcium (Crestor) 5 mg PO HS [facility] Last Admin: 09/14/17 21:15 Dose: 5 mg Saccharomyces Boulardii (Florastor) 250 mg PO BID [facility] Last Admin: 09/15/17 17:42 Dose: 250 mg Valproate Sodium (Depakene Oral Soln) 250 mg PEG Q12 [facility] Last Admin: 09/15/17 09:38 Dose: 250 mg Zinc Sulfate (Zinc Sulfate 220 Mg Cap) 220 mg PO DAILY [facility] Last Admin: 09/15/17 09:35 Dose: 220 mg - Labs Labs: 09/15/17 06:07 09/15/17 06:04 PT 22.0 SECONDS (9.7-12.2) H 09/07/17 06:08 INR 2.0 09/07/17 06:08 APTT 43 SECONDS (21-34) H 09/07/17 06:08 Assessment and Plan (1) Respiratory failure Status: Acute (2) Anemia Status: Acute (3) Pneumonia Status: Acute
--- NOTE | 2017-09-15 22:38 | CP.PCM.PN ---
Subjective - Date & Time of Evaluation Date of Evaluation: 09/15/17 Time of Evaluation: 03:00 - Subjective Subjective: dictated Objective - Vital Signs/Intake and Output Vital Signs (last 24 hours): Temp Pulse Resp BP Pulse Ox 100.3 F H 104 H 23 88/55 L 99 09/15/17 20:23 09/15/17 20:00 09/15/17 20:00 09/15/17 20:00 09/15/17 20:00 Intake and Output: 09/15/17 09/16/17 18:59 06:59 Intake Total 400 600 Output Total 250 Balance 400 350 - Medications Medications: Current Medications Acetaminophen (Tylenol 650mg/20.3ml Solution Ud) 650 mg PO Q6 PRN PRN Reason: Fever >100.4 F Last Admin: 09/15/17 20:23 Dose: 650 mg Amantadine HCl (Symmetrel) 100 mg PO DAILY [facility] Last Admin: 09/15/17 09:35 Dose: 100 mg Ascorbic Acid (Vitamin C 500 Mg Tab) 500 mg PO DAILY [facility] Last Admin: 09/15/17 09:34 Dose: 500 mg Carbamazepine (Tegretol) 100 mg PEG Q8 [facility] Last Admin: 09/15/17 21:20 Dose: 100 mg Dextrose (Dextrose 50% Inj) 0 ml IV STAT PRN; Protocol PRN Reason: Hypoglycemia Protocol Last Admin: 09/14/17 06:12 Dose: 50 ml Finasteride (Proscar) 5 mg PO DAILY [facility] Last Admin: 09/15/17 09:34 Dose: 5 mg Heparin Sodium (Porcine) (Heparin) 5,000 units SC Q12 [facility] Last Admin: 09/15/17 21:19 Dose: 5,000 units Meropenem 500 mg/ Sodium (Chloride) 100 mls @ 100 mls/hr IVPB Q8H [facility] PRN Reason: Protocol Last Admin: 09/15/17 18:00 Dose: 100 mls/hr Vancomycin/Sodium Chloride (Vancomycin 1 Gm/Ns 200 Ml) 1 gm in 200 mls @ 133 mls/hr IVPB DAILY [facility] PRN Reason: Protocol Stop: 09/18/17 10:01 Last Admin: 09/15/17 09:39 Dose: 133 mls/hr Micafungin Sodium 100 mg/ (Sodium Chloride) 100 mls @ 100 mls/hr IV Q24H [facility] PRN Reason: Protocol Last Admin: 09/15/17 15:50 Dose: 100 mls/hr Metoclopramide HCl (Reglan) 10 mg IVP Q6H [facility] Last Admin: 09/15/17 17:45 Dose: 10 mg Metronidazole (Flagyl) 500 mg PEG TID [facility] PRN Reason: Protocol Last Admin: 09/15/17 17:50 Dose: 500 mg Midodrine (Proamatine) 5 mg PO TID [facility] Last Admin: 09/15/17 17:42 Dose: 5 mg Multivitamins/Vitamin C (Multi-Delyn Liquid) 5 ml PO DAILY [facility] Last Admin: 09/15/17 09:36 Dose: 5 ml Pantoprazole Sodium (Protonix Susp) 40 mg PO DAILY [facility] Last Admin: 09/15/17 09:34 Dose: 40 mg Rosuvastatin Calcium (Crestor) 5 mg PO HS [facility] Last Admin: 09/15/17 21:19 Dose: 5 mg Saccharomyces Boulardii (Florastor) 250 mg PO BID [facility] Last Admin: 09/15/17 17:42 Dose: 250 mg Valproate Sodium (Depakene Oral Soln) 250 mg PEG Q12 [facility] Last Admin: 09/15/17 21:20 Dose: 250 mg Zinc Sulfate (Zinc Sulfate 220 Mg Cap) 220 mg PO DAILY [facility] Last Admin: 09/15/17 09:35 Dose: 220 mg - Labs Labs: 09/15/17 06:07 09/15/17 06:04 PT 22.0 SECONDS (9.7-12.2) H 09/07/17 06:08 INR 2.0 09/07/17 06:08 APTT 43 SECONDS (21-34) H 09/07/17 06:08
[2017-09-16] MEDS: Meropenem 500 MG in Sodium Chloride 0.9% 100 ML IVPB SCH ×3 (03:00→18:48)
--- NOTE | 2017-09-16 03:02 | PN ---
DATE: 09/15/2017 SUBJECTIVE: The patient was seen today in the afternoon, and the nurse told me he had a fever at midnight of 101, and he remains hypotensive. Sometimes, his blood pressure fluctuates, it goes to 100, then comes down to 87/55, and he remains tachycardic with 101. Respirations are 23, and he was on vancomycin, Merrem, as well as Flagyl. Before few days, he did not have fever, right now having fever. Rectal tube is out. He remains on the trach. He is not tolerating or weaning. Remains unresponsive. PHYSICAL EXAMINATION: NECK: Supple. LUNGS: Have occasional rhonchi. HEART: S1, S2 is tachy. ABDOMEN: Soft, nontender. EXTREMITIES: Edema is present. Left leg has some edema with decubitus on the heel as well as on the lateral malleolus, right AKA. LABORATORY DATA: White count is 6, hemoglobin 8.8, hematocrit 26.8, platelet count is 253; and his BUN is 22, creatinine is 0.9. Micro cultures have all been negative, so it is very unclear why he is still having fevers. His chest x-ray from 09/13/2017 showed postsurgical changes and internal fixation are noted in the right chest wall deformity of several right lateral ribs, persistent prominent consolidative opacification in the right upper to mid lung zone with prominent cystic changes. Diffuse increased interstitial markings throughout the remainder of the right lung. At this time, he also had a head CT on 09/14/2017 which showed age-related diffuse cerebral atrophy, chronic microangiopathy, underlying normal pressure hydrocephalus is difficulty to completely exclude. So, at this time, the patient remains in morbid condition with respiratory failure, fevers, hypotension, decubitus, cystic changes in the lungs, nonweanable, and his prognosis remains very poor according to other consultants too. We are looking for hospice but family and PMD have to discuss. We will follow. I would add Mycamine back at this time and continue the other antibiotics. Bladimir Muñoz MD
[2017-09-16] MEDS: carBAMazepine Chew Tab 100 MG Chew Tab PEG SCH ×3 (05:53→21:48)
--- NOTE | 2017-09-16 06:23 | CP.PCM.PN ---
Subjective - Date & Time of Evaluation Date of Evaluation: 09/16/17 Time of Evaluation: 06:23 - Subjective Subjective: Mr. Cordero was seen and examined at the bedside in ICU. He remains on mechanical ventilator on PRVC mode via trach, lethargic.Pupils sluggishly reactive 3 mm on the left and 2 mm on the right, responsive to pain stimuli GCS - 4T.His bilateral upper extremities are edematous with a dependent periorbital edema on his right side. He had an episode of febrile last night. Tylenol was given. Objective - Vital Signs/Intake and Output Vital Signs (last 24 hours): Temp Pulse Resp BP Pulse Ox 99 F 95 H 19 81/52 L 95 09/16/17 04:00 09/16/17 04:00 09/16/17 04:00 09/16/17 04:00 09/16/17 04:00 Intake and Output: 09/15/17 09/16/17 18:59 06:59 Intake Total 400 600 Output Total 250 Balance 400 350 - Medications Medications: Current Medications Acetaminophen (Tylenol 650mg/20.3ml Solution Ud) 650 mg PO Q6 PRN PRN Reason: Fever >100.4 F Last Admin: 09/15/17 20:23 Dose: 650 mg Amantadine HCl (Symmetrel) 100 mg PO DAILY [facility] Last Admin: 09/15/17 09:35 Dose: 100 mg Ascorbic Acid (Vitamin C 500 Mg Tab) 500 mg PO DAILY [facility] Last Admin: 09/15/17 09:34 Dose: 500 mg Carbamazepine (Tegretol) 100 mg PEG Q8 [facility] Last Admin: 09/16/17 05:53 Dose: 100 mg Dextrose (Dextrose 50% Inj) 0 ml IV STAT PRN; Protocol PRN Reason: Hypoglycemia Protocol Last Admin: 09/14/17 06:12 Dose: 50 ml Finasteride (Proscar) 5 mg PO DAILY [facility] Last Admin: 09/15/17 09:34 Dose: 5 mg Heparin Sodium (Porcine) (Heparin) 5,000 units SC Q12 [facility] Last Admin: 09/15/17 21:19 Dose: 5,000 units Meropenem 500 mg/ Sodium (Chloride) 100 mls @ 100 mls/hr IVPB Q8H [facility] PRN Reason: Protocol Last Admin: 09/16/17 03:00 Dose: 100 mls/hr Vancomycin/Sodium Chloride (Vancomycin 1 Gm/Ns 200 Ml) 1 gm in 200 mls @ 133 mls/hr IVPB DAILY [facility] PRN Reason: Protocol Stop: 09/18/17 10:01 Last Admin: 09/15/17 09:39 Dose: 133 mls/hr Micafungin Sodium 100 mg/ (Sodium Chloride) 100 mls @ 100 mls/hr IV Q24H [facility] PRN Reason: Protocol Last Admin: 09/15/17 15:50 Dose: 100 mls/hr Metoclopramide HCl (Reglan) 10 mg IVP Q6H [facility] Last Admin: 09/16/17 05:54 Dose: 10 mg Metronidazole (Flagyl) 500 mg PEG TID [facility] PRN Reason: Protocol Last Admin: 09/15/17 17:50 Dose: 500 mg Midodrine (Proamatine) 5 mg PO TID [facility] Last Admin: 09/15/17 17:42 Dose: 5 mg Multivitamins/Vitamin C (Multi-Delyn Liquid) 5 ml PO DAILY [facility] Last Admin: 09/15/17 09:36 Dose: 5 ml Pantoprazole Sodium (Protonix Susp) 40 mg PO DAILY [facility] Last Admin: 09/15/17 09:34 Dose: 40 mg Rosuvastatin Calcium (Crestor) 5 mg PO HS [facility] Last Admin: 09/15/17 21:19 Dose: 5 mg Saccharomyces Boulardii (Florastor) 250 mg PO BID [facility] Last Admin: 09/15/17 17:42 Dose: 250 mg Valproate Sodium (Depakene Oral Soln) 250 mg PEG Q12 [facility] Last Admin: 09/15/17 21:20 Dose: 250 mg Zinc Sulfate (Zinc Sulfate 220 Mg Cap) 220 mg PO DAILY [facility] Last Admin: 09/15/17 09:35 Dose: 220 mg - Labs Labs: 09/15/17 06:07 09/15/17 06:04 PT 22.0 SECONDS (9.7-12.2) H 09/07/17 06:08 INR 2.0 09/07/17 06:08 APTT 43 SECONDS (21-34) H 09/07/17 06:08 - Constitutional Appears: No Acute Distress - Head Exam Head Exam: NORMAL INSPECTION - Neurological Exam Neuro motor strength exam: Left Upper Extremity: 0, Right Upper Extremity: 0, Left Lower Extremity: 0, Right Lower Extremity: 0 Additional comments: GCS- 4T Assessment and Plan (1) Toxic metabolic encephalopathy Assessment & Plan: Case discussed with Dr. Zacarias, continue all current medical regimen. Recommend monitor valproic level, to treat any underlying electrolyte abnormalities, any s /s infections. Status: Acute
[2017-09-16 06:34] LABS: BASO # 0.1 K/uL (0.0-0.2); BASO % 0.7 % (0.0-2.0); EOS % 0.2 % (0.0-4.0); HEMOGLOBIN 8.6 g/dL (12.0-18.0); PLATELET COUNT 261 K/uL (130-400); RED CELL DISTRIBUTION WIDTH 18.7 % (11.5-14.5); WHITE BLOOD COUNT 7.8 K/uL (4.8-10.8)
[2017-09-16 06:36] LABS: LYMPH # 2.9 K/uL (1.0-4.3); LYMPH % 37.3 % (20.0-40.0); MEAN CELL VOLUME 86.8 fL (80.0-94.0); MEAN CORPUSCULAR HEMOGLOBIN 28.9 pg (27.0-31.0); MEAN CORPUSCULAR HGB CONC 33.2 g/dL (33.0-37.0); MONO # 1.8 K/uL (0.0-0.8); MONO % 23.4 % (0.0-10.0); NEUT % 38.4 % (50.0-75.0); NRBC % 0.2 % (0.0-2.0); RBC 2.98 Mil/uL (4.40-5.90)
[2017-09-16 06:44] LABS: ALB/GLOB RATIO 0.5 (1.0-2.1); ALBUMIN 2.2 g/dL (3.5-5.0); ALT/SGPT 19 U/L (21-72); AST/SGOT 40 U/L (17-59); BLOOD UREA NITROGEN 26 mg/dL (9-20); CALCIUM 6.2 mg/dl (8.6-10.4); GFR AFRICAN-AMERICAN > 60; GFR NON-AFRICAN AMERICAN > 60
[2017-09-16 08:37] LABS: ANISOCYTOSIS SLIGHT; BANDS 2 % (0-2); EOSINOPHIL 1 % (0-4); LYMPHOCYTE 28 % (20-40); MONOCYTE 23 % (0-10); NEUTROPHIL 46 % (50-75); PLATELET ESTIMATE NORMAL (NORMAL); TOTAL CELLS COUNTED 100
[2017-09-16 08:38] LABS: HYPOCHROMIC SLIGHT; MICROCYTOSIS SLIGHT; POIKILOCYTOSIS SLIGHT; TARGET CELLS SLIGHT
[2017-09-16 08:39] LABS: TOXIC GRANULATION PRESENT
--- NOTE | 2017-09-16 08:45 | CP.PCM.PN ---
Subjective - Date & Time of Evaluation Date of Evaluation: 09/16/17 - Subjective Subjective: patient seen and examined poorly Responsive remains tachypneic Status post tracheostomy Copious secretions on PEG feeding Not tolerating weaning Objective - Vital Signs/Intake and Output Vital Signs (last 24 hours): Temp Pulse Resp BP Pulse Ox 99 F 95 H 19 81/52 L 95 09/16/17 04:00 09/16/17 04:00 09/16/17 04:00 09/16/17 04:00 09/16/17 04:00 Intake and Output: 09/16/17 09/16/17 06:59 18:59 Intake Total 1600 Output Total 2250 Balance -650 - Medications Medications: Current Medications Acetaminophen (Tylenol 650mg/20.3ml Solution Ud) 650 mg PO Q6 PRN PRN Reason: Fever >100.4 F Last Admin: 09/15/17 20:23 Dose: 650 mg Amantadine HCl (Symmetrel) 100 mg PO DAILY [facility] Last Admin: 09/15/17 09:35 Dose: 100 mg Ascorbic Acid (Vitamin C 500 Mg Tab) 500 mg PO DAILY [facility] Last Admin: 09/15/17 09:34 Dose: 500 mg Carbamazepine (Tegretol) 100 mg PEG Q8 [facility] Last Admin: 09/16/17 05:53 Dose: 100 mg Dextrose (Dextrose 50% Inj) 0 ml IV STAT PRN; Protocol PRN Reason: Hypoglycemia Protocol Last Admin: 09/14/17 06:12 Dose: 50 ml Finasteride (Proscar) 5 mg PO DAILY [facility] Last Admin: 09/15/17 09:34 Dose: 5 mg Heparin Sodium (Porcine) (Heparin) 5,000 units SC Q12 [facility] Last Admin: 09/15/17 21:19 Dose: 5,000 units Meropenem 500 mg/ Sodium (Chloride) 100 mls @ 100 mls/hr IVPB Q8H [facility] PRN Reason: Protocol Last Admin: 09/16/17 03:00 Dose: 100 mls/hr Vancomycin/Sodium Chloride (Vancomycin 1 Gm/Ns 200 Ml) 1 gm in 200 mls @ 133 mls/hr IVPB DAILY [facility] PRN Reason: Protocol Stop: 09/18/17 10:01 Last Admin: 09/15/17 09:39 Dose: 133 mls/hr Micafungin Sodium 100 mg/ (Sodium Chloride) 100 mls @ 100 mls/hr IV Q24H [facility] PRN Reason: Protocol Last Admin: 09/15/17 15:50 Dose: 100 mls/hr Metoclopramide HCl (Reglan) 10 mg IVP Q6H [facility] Last Admin: 09/16/17 05:54 Dose: 10 mg Metronidazole (Flagyl) 500 mg PEG TID [facility] PRN Reason: Protocol Last Admin: 09/15/17 17:50 Dose: 500 mg Midodrine (Proamatine) 5 mg PO TID [facility] Last Admin: 09/15/17 17:42 Dose: 5 mg Multivitamins/Vitamin C (Multi-Delyn Liquid) 5 ml PO DAILY [facility] Last Admin: 09/15/17 09:36 Dose: 5 ml Pantoprazole Sodium (Protonix Susp) 40 mg PO DAILY [facility] Last Admin: 09/15/17 09:34 Dose: 40 mg Rosuvastatin Calcium (Crestor) 5 mg PO HS [facility] Last Admin: 09/15/17 21:19 Dose: 5 mg Saccharomyces Boulardii (Florastor) 250 mg PO BID [facility] Last Admin: 09/15/17 17:42 Dose: 250 mg Valproate Sodium (Depakene Oral Soln) 250 mg PEG Q12 [facility] Last Admin: 09/15/17 21:20 Dose: 250 mg Zinc Sulfate (Zinc Sulfate 220 Mg Cap) 220 mg PO DAILY [facility] Last Admin: 09/15/17 09:35 Dose: 220 mg - Labs Labs: 09/16/17 06:24 09/16/17 06:24 PT 22.0 SECONDS (9.7-12.2) H 09/07/17 06:08 INR 2.0 09/07/17 06:08 APTT 43 SECONDS (21-34) H 09/07/17 06:08 - Head Exam Head Exam: ATRAUMATIC, NORMOCEPHALIC - Neck Exam Neck Exam: Normal Inspection - Respiratory Exam Respiratory Exam: Rhonchi, Wheezes - GI/Abdominal Exam GI & Abdominal Exam: Soft Assessment and Plan (1) Respiratory failure Status: Acute (2) Anemia Status: Acute (3) Pneumonia Status: Acute
[2017-09-16] MEDS: Pantoprazole 40 mg Susp UD PO SCH (09:43)
[2017-09-16] MEDS: Multiple Vitamins Oral Solution PO SCH (09:44)
[2017-09-16] MEDS: Valproic Acid 250 mg/5 ml UD Cup PEG SCH ×2 (09:44→21:48)
[2017-09-16] MEDS: Amantadine 50 mg/5 ml Syrup (473 ml) PO SCH (09:44)
[2017-09-16] MEDS: Saccharomyces Boulardi 250 mg Cap PO SCH ×2 (09:45→17:08)
[2017-09-16] MEDS: Vancomycin 1 gm/NS 200 ml 1 GM/200 ML BAG IVPB SCH (10:01)
[2017-09-16] MEDS: Albuterol-Ipratrop 3 mg / 0.5 (3 ml) UD INH SCH ×2 (14:02→20:34)
[2017-09-16] MEDS: Micafungin 100 MG in Sodium Chloride 0.9% 100 ML IV SCH (15:22)
[2017-09-16] MEDS ORDERED: Sodium Chloride 0.9% 250 ML IV ONE (16:10)
--- NOTE | 2017-09-16 23:00 | CP.PCM.PN ---
Subjective - Date & Time of Evaluation Date of Evaluation: 09/16/17 Time of Evaluation: 19:35 - Subjective Subjective: Pt seen and examined at bedside. pt state appointed power of director new product is requested for placing pt on hospice care as he is barely responsive Objective - Vital Signs/Intake and Output Vital Signs (last 24 hours): Temp Pulse Resp BP Pulse Ox 98.6 F 97 H 32 H 95/54 L 100 09/16/17 20:00 09/16/17 20:00 09/16/17 20:00 09/16/17 20:00 09/16/17 20:00 - Medications Medications: Current Medications Acetaminophen (Tylenol 650mg/20.3ml Solution Ud) 650 mg PO Q6 PRN PRN Reason: Fever >100.4 F Last Admin: 09/15/17 20:23 Dose: 650 mg Albuterol/Ipratropium (Duoneb 3 Mg/0.5 Mg (3 Ml) Ud) 3 ml INH RQ6 [facility] Last Admin: 09/16/17 20:34 Dose: 3 ml Amantadine HCl (Symmetrel) 100 mg PO DAILY [facility] Last Admin: 09/16/17 09:44 Dose: 100 mg Ascorbic Acid (Vitamin C 500 Mg Tab) 500 mg PO DAILY [facility] Last Admin: 09/16/17 09:42 Dose: 500 mg Carbamazepine (Tegretol) 100 mg PEG Q8 [facility] Last Admin: 09/16/17 21:48 Dose: 100 mg Dextrose (Dextrose 50% Inj) 0 ml IV STAT PRN; Protocol PRN Reason: Hypoglycemia Protocol Last Admin: 09/14/17 06:12 Dose: 50 ml Finasteride (Proscar) 5 mg PO DAILY [facility] Last Admin: 09/16/17 09:43 Dose: 5 mg Heparin Sodium (Porcine) (Heparin) 5,000 units SC Q12 [facility] Last Admin: 09/16/17 21:47 Dose: 5,000 units Meropenem 500 mg/ Sodium (Chloride) 100 mls @ 100 mls/hr IVPB Q8H [facility] PRN Reason: Protocol Last Admin: 09/16/17 18:48 Dose: 100 mls/hr Vancomycin/Sodium Chloride (Vancomycin 1 Gm/Ns 200 Ml) 1 gm in 200 mls @ 133 mls/hr IVPB DAILY [facility] PRN Reason: Protocol Stop: 09/18/17 10:01 Last Admin: 09/16/17 10:01 Dose: 133 mls/hr Micafungin Sodium 100 mg/ (Sodium Chloride) 100 mls @ 100 mls/hr IV Q24H [facility] PRN Reason: Protocol Last Admin: 09/16/17 15:22 Dose: 100 mls/hr Metoclopramide HCl (Reglan) 10 mg IVP Q6H [facility] Last Admin: 09/16/17 17:10 Dose: 10 mg Metronidazole (Flagyl) 500 mg PEG TID [facility] PRN Reason: Protocol Last Admin: 09/16/17 17:09 Dose: 500 mg Midodrine (Proamatine) 5 mg PO TID [facility] Last Admin: 09/16/17 17:09 Dose: 5 mg Multivitamins/Vitamin C (Multi-Delyn Liquid) 5 ml PO DAILY [facility] Last Admin: 09/16/17 09:44 Dose: 5 ml Pantoprazole Sodium (Protonix Susp) 40 mg PO DAILY [facility] Last Admin: 09/16/17 09:43 Dose: 40 mg Rosuvastatin Calcium (Crestor) 5 mg PO HS [facility] Last Admin: 09/16/17 21:48 Dose: 5 mg Saccharomyces Boulardii (Florastor) 250 mg PO BID [facility] Last Admin: 09/16/17 17:08 Dose: 250 mg Valproate Sodium (Depakene Oral Soln) 250 mg PEG Q12 [facility] Last Admin: 09/16/17 21:48 Dose: 250 mg Zinc Sulfate (Zinc Sulfate 220 Mg Cap) 220 mg PO DAILY [facility] Last Admin: 09/16/17 09:45 Dose: 220 mg - Labs Labs: 09/16/17 06:24 09/16/17 06:24 PT 22.0 SECONDS (9.7-12.2) H 09/07/17 06:08 INR 2.0 09/07/17 06:08 APTT 43 SECONDS (21-34) H 09/07/17 06:08 - Constitutional Appears: No Acute Distress - Head Exam Head Exam: ATRAUMATIC, NORMAL INSPECTION, NORMOCEPHALIC - Eye Exam Eye Exam: EOMI, Normal appearance, PERRL Pupil Exam: NORMAL ACCOMODATION, PERRL - Respiratory Exam Respiratory Exam: Decreased Breath Sounds, Rales, Rhonchi - Cardiovascular Exam Cardiovascular Exam: REGULAR RHYTHM, +S1, +S2. absent: Murmur - GI/Abdominal Exam GI & Abdominal Exam: Soft, Normal Bowel Sounds. absent: Tenderness Assessment and Plan (1) Sepsis Status: Acute (2) Fever Status: Acute (3) Seizure disorder Status: Acute (4) COPD (chronic obstructive pulmonary disease) Status: Chronic (5) PVD (peripheral vascular disease) Status: Chronic (6) Respiratory failure Status: Acute
[2017-09-17] MEDS: Albuterol-Ipratrop 3 mg / 0.5 (3 ml) UD INH SCH ×4 (01:25→20:54)
[2017-09-17] MEDS: Meropenem 500 MG in Sodium Chloride 0.9% 100 ML IVPB SCH ×3 (03:00→18:12)
[2017-09-17] MEDS: carBAMazepine Chew Tab 100 MG Chew Tab PEG SCH ×3 (05:16→21:03)
[2017-09-17] MEDS ORDERED: Dextrose 50% SYRINGE Inj (50 ml) ONE (06:58)
--- NOTE | 2017-09-17 08:24 | CP.PCM.PN ---
Subjective - Date & Time of Evaluation Date of Evaluation: 09/17/17 Time of Evaluation: 08:21 - Subjective Subjective: Pulmonary Follow up Covering Dr. Washington The Patient was seen and examined at the bedside, Medical records reviewed, and management issues were discussed and formulated with the house staff. Events reviewed Remains orally intubated, mechanically vented, On PRVC: 40%Fi02, 14 RR, 400 TV, 5 PEEP Saturation 98-100% Remains lethargic Patient did not tolerate vent weaning trial today +Tachypnea + multiple skin pressure/wound + generalized weakness, edema with anasarca. Tolerating tube feeding Afebrile, copious amount of resp secretions Status post bronchoscopy Status post Tracheostomy 09/07 Initial plan for LTACH placement, but now family considering Hospice Objective - Vital Signs/Intake and Output Vital Signs (last 24 hours): Temp Pulse Resp BP Pulse Ox 98.5 F 102 H 34 H 94/59 L 99 09/17/17 08:00 09/17/17 08:00 09/17/17 08:00 09/17/17 08:00 09/17/17 08:00 Intake and Output: 09/17/17 09/17/17 06:59 18:59 Intake Total 100 Balance 100 - Medications Medications: Current Medications Acetaminophen (Tylenol 650mg/20.3ml Solution Ud) 650 mg PO Q6 PRN PRN Reason: Fever >100.4 F Last Admin: 09/15/17 20:23 Dose: 650 mg Albuterol/Ipratropium (Duoneb 3 Mg/0.5 Mg (3 Ml) Ud) 3 ml INH RQ6 [facility] Last Admin: 09/17/17 07:58 Dose: 3 ml Amantadine HCl (Symmetrel) 100 mg PO DAILY [facility] Last Admin: 09/16/17 09:44 Dose: 100 mg Ascorbic Acid (Vitamin C 500 Mg Tab) 500 mg PO DAILY [facility] Last Admin: 09/16/17 09:42 Dose: 500 mg Carbamazepine (Tegretol) 100 mg PEG Q8 [facility] Last Admin: 09/17/17 05:16 Dose: 100 mg Dextrose (Dextrose 50% Inj) 0 ml IV STAT PRN; Protocol PRN Reason: Hypoglycemia Protocol Last Admin: 09/14/17 06:12 Dose: 50 ml Finasteride (Proscar) 5 mg PO DAILY [facility] Last Admin: 09/16/17 09:43 Dose: 5 mg Heparin Sodium (Porcine) (Heparin) 5,000 units SC Q12 [facility] Last Admin: 09/16/17 21:47 Dose: 5,000 units Meropenem 500 mg/ Sodium (Chloride) 100 mls @ 100 mls/hr IVPB Q8H [facility] PRN Reason: Protocol Last Admin: 09/17/17 03:00 Dose: 100 mls/hr Vancomycin/Sodium Chloride (Vancomycin 1 Gm/Ns 200 Ml) 1 gm in 200 mls @ 133 mls/hr IVPB DAILY [facility] PRN Reason: Protocol Stop: 09/18/17 10:01 Last Admin: 09/16/17 10:01 Dose: 133 mls/hr Micafungin Sodium 100 mg/ (Sodium Chloride) 100 mls @ 100 mls/hr IV Q24H [facility] PRN Reason: Protocol Last Admin: 09/16/17 15:22 Dose: 100 mls/hr Metoclopramide HCl (Reglan) 10 mg IVP Q6H [facility] Last Admin: 09/17/17 05:15 Dose: 10 mg Metronidazole (Flagyl) 500 mg PEG TID [facility] PRN Reason: Protocol Last Admin: 09/16/17 17:09 Dose: 500 mg Midodrine (Proamatine) 5 mg PO TID [facility] Last Admin: 09/16/17 17:09 Dose: 5 mg Multivitamins/Vitamin C (Multi-Delyn Liquid) 5 ml PO DAILY [facility] Last Admin: 09/16/17 09:44 Dose: 5 ml Pantoprazole Sodium (Protonix Susp) 40 mg PO DAILY [facility] Last Admin: 09/16/17 09:43 Dose: 40 mg Rosuvastatin Calcium (Crestor) 5 mg PO HS [facility] Last Admin: 09/16/17 21:48 Dose: 5 mg Saccharomyces Boulardii (Florastor) 250 mg PO BID [facility] Last Admin: 09/16/17 17:08 Dose: 250 mg Valproate Sodium (Depakene Oral Soln) 250 mg PEG Q12 [facility] Last Admin: 09/16/17 21:48 Dose: 250 mg Zinc Sulfate (Zinc Sulfate 220 Mg Cap) 220 mg PO DAILY [facility] Last Admin: 09/16/17 09:45 Dose: 220 mg - Labs Labs: 09/16/17 06:24 09/16/17 06:24 PT 22.0 SECONDS (9.7-12.2) H 09/07/17 06:08 INR 2.0 09/07/17 06:08 APTT 43 SECONDS (21-34) H 09/07/17 06:08 - Head Exam Head Exam: ATRAUMATIC, NORMAL INSPECTION - Eye Exam Eye Exam: absent: Conjunctival injection - Neck Exam Neck Exam: Full ROM. absent: Normal Inspection (Tracheostomy) - Respiratory Exam Respiratory Exam: Decreased Breath Sounds, Rhonchi, Wheezes. absent: Chest Wall Tenderness, Clear to Ausculation Bilateral, NORMAL BREATHING PATTERN - Cardiovascular Exam Cardiovascular Exam: REGULAR RHYTHM, RRR, +S1, +S2. absent: JVD - GI/Abdominal Exam GI & Abdominal Exam: Normal Bowel Sounds. absent: Distended, Rigid, Soft Assessment and Plan (1) Respiratory failure Status: Acute (2) Pneumonia Status: Acute (3) COPD (chronic obstructive pulmonary disease) Status: Chronic (4) Sepsis Status: Acute (5) Failure to thrive Status: Acute
[2017-09-17 08:50] LABS: BASO # 0.1 K/uL (0.0-0.2); BASO % 0.9 % (0.0-2.0); EOS % 0.1 % (0.0-4.0); LYMPH # 2.7 K/uL (1.0-4.3); LYMPH % 28.8 % (20.0-40.0); MEAN CELL VOLUME 88.1 fL (80.0-94.0); MEAN CORPUSCULAR HEMOGLOBIN 28.5 pg (27.0-31.0); MEAN CORPUSCULAR HGB CONC 32.3 g/dL (33.0-37.0); MEAN PLATELET VOLUME 9.2 fL (7.2-11.7); MONO # 1.9 K/uL (0.0-0.8); MONO % 20.1 % (0.0-10.0); NEUT # 4.7 K/uL (1.8-7.0); NEUT % 50.1 % (50.0-75.0); PLATELET COUNT 304 K/uL (130-400); RBC 3.16 Mil/uL (4.40-5.90); RED CELL DISTRIBUTION WIDTH 18.6 % (11.5-14.5); WHITE BLOOD COUNT 9.5 K/uL (4.8-10.8)
[2017-09-17 09:09] LABS: ALB/GLOB RATIO 0.5 (1.0-2.1); ALBUMIN 2.3 g/dL (3.5-5.0); ALT/SGPT 14 U/L (21-72); AST/SGOT 47 U/L (17-59); BLOOD UREA NITROGEN 29 mg/dL (9-20); CALCIUM 6.7 mg/dl (8.6-10.4); GFR AFRICAN-AMERICAN > 60; GFR NON-AFRICAN AMERICAN > 60
[2017-09-17] MEDS: Valproic Acid 250 mg/5 ml UD Cup PEG SCH ×2 (09:21→21:03)
[2017-09-17] MEDS: Multiple Vitamins Oral Solution PO SCH (09:22)
[2017-09-17] MEDS: Saccharomyces Boulardi 250 mg Cap PO SCH ×2 (09:22→18:12)
[2017-09-17] MEDS: Vancomycin 1 gm/NS 200 ml 1 GM/200 ML BAG IVPB SCH (09:24)
[2017-09-17] MEDS: Pantoprazole 40 mg Susp UD PO SCH (09:24)
[2017-09-17] MEDS: Amantadine 50 mg/5 ml Syrup (473 ml) PO SCH (09:24)
[2017-09-17 09:28] LABS: BANDS 2 % (0-2); LYMPHOCYTE 30 % (20-40); REACTIVE LYMPHOCYTES 1 % (0-0); TOTAL CELLS COUNTED 100
[2017-09-17 09:29] LABS: ANISOCYTOSIS SLIGHT; HYPOCHROMIC SLIGHT; MONOCYTE 21 % (0-10); NEUTROPHIL 46 % (50-75); PLATELET ESTIMATE NORMAL (NORMAL); POIKILOCYTOSIS SLIGHT
--- NOTE | 2017-09-17 15:41 | CP.PCM.PN ---
Subjective - Date & Time of Evaluation Date of Evaluation: 09/17/17 Time of Evaluation: 17:00 - Subjective Subjective: Pt seen and examined, in ICU, weak, droowsy on ventilator, i am awaiting paper work from power of criminal attorney Objective - Vital Signs/Intake and Output Vital Signs (last 24 hours): Temp Pulse Resp BP Pulse Ox 98.1 F 96 H 29 H 96/61 L 99 09/17/17 12:00 09/17/17 12:00 09/17/17 12:00 09/17/17 12:00 09/17/17 12:00 Intake and Output: 09/17/17 09/17/17 06:59 18:59 Intake Total 100 800 Output Total 280 Balance 100 520 - Medications Medications: Current Medications Acetaminophen (Tylenol 650mg/20.3ml Solution Ud) 650 mg PO Q6 PRN PRN Reason: Fever >100.4 F Last Admin: 09/15/17 20:23 Dose: 650 mg Albuterol/Ipratropium (Duoneb 3 Mg/0.5 Mg (3 Ml) Ud) 3 ml INH RQ6 [facility] Last Admin: 09/17/17 14:02 Dose: 3 ml Amantadine HCl (Symmetrel) 100 mg PO DAILY [facility] Last Admin: 09/17/17 09:24 Dose: 100 mg Ascorbic Acid (Vitamin C 500 Mg Tab) 500 mg PO DAILY [facility] Last Admin: 09/17/17 09:25 Dose: 500 mg Carbamazepine (Tegretol) 100 mg PEG Q8 [facility] Last Admin: 09/17/17 13:42 Dose: 100 mg Dextrose (Dextrose 50% Inj) 0 ml IV STAT PRN; Protocol PRN Reason: Hypoglycemia Protocol Last Admin: 09/14/17 06:12 Dose: 50 ml Finasteride (Proscar) 5 mg PO DAILY [facility] Last Admin: 09/17/17 09:23 Dose: 5 mg Heparin Sodium (Porcine) (Heparin) 5,000 units SC Q12 [facility] Last Admin: 09/17/17 09:22 Dose: 5,000 units Meropenem 500 mg/ Sodium (Chloride) 100 mls @ 100 mls/hr IVPB Q8H [facility] PRN Reason: Protocol Last Admin: 09/17/17 11:15 Dose: 100 mls/hr Vancomycin/Sodium Chloride (Vancomycin 1 Gm/Ns 200 Ml) 1 gm in 200 mls @ 133 mls/hr IVPB DAILY [facility] PRN Reason: Protocol Stop: 09/18/17 10:01 Last Admin: 09/17/17 09:24 Dose: 133 mls/hr Micafungin Sodium 100 mg/ (Sodium Chloride) 100 mls @ 100 mls/hr IV Q24H [facility] PRN Reason: Protocol Last Admin: 09/16/17 15:22 Dose: 100 mls/hr Metoclopramide HCl (Reglan) 10 mg IVP Q6H [facility] Last Admin: 09/17/17 11:15 Dose: 10 mg Metronidazole (Flagyl) 500 mg PEG TID [facility] PRN Reason: Protocol Last Admin: 09/17/17 13:42 Dose: 500 mg Midodrine (Proamatine) 5 mg PO TID [facility] Last Admin: 09/17/17 13:42 Dose: 5 mg Multivitamins/Vitamin C (Multi-Delyn Liquid) 5 ml PO DAILY [facility] Last Admin: 09/17/17 09:22 Dose: 5 ml Pantoprazole Sodium (Protonix Susp) 40 mg PO DAILY [facility] Last Admin: 09/17/17 09:24 Dose: 40 mg Rosuvastatin Calcium (Crestor) 5 mg PO HS [facility] Last Admin: 09/16/17 21:48 Dose: 5 mg Saccharomyces Boulardii (Florastor) 250 mg PO BID [facility] Last Admin: 09/17/17 09:22 Dose: 250 mg Valproate Sodium (Depakene Oral Soln) 250 mg PEG Q12 [facility] Last Admin: 09/17/17 09:21 Dose: 250 mg Zinc Sulfate (Zinc Sulfate 220 Mg Cap) 220 mg PO DAILY [facility] Last Admin: 09/17/17 09:57 Dose: 220 mg - Labs Labs: 09/17/17 08:44 09/17/17 08:44 PT 22.0 SECONDS (9.7-12.2) H 09/07/17 06:08 INR 2.0 09/07/17 06:08 APTT 43 SECONDS (21-34) H 09/07/17 06:08 - Constitutional Appears: No Acute Distress - Head Exam Head Exam: ATRAUMATIC, NORMAL INSPECTION, NORMOCEPHALIC - Eye Exam Eye Exam: EOMI, Normal appearance, PERRL Pupil Exam: NORMAL ACCOMODATION, PERRL - Respiratory Exam Respiratory Exam: Decreased Breath Sounds, Rales, Rhonchi - Cardiovascular Exam Cardiovascular Exam: REGULAR RHYTHM, +S1, +S2. absent: Murmur - GI/Abdominal Exam GI & Abdominal Exam: Soft, Normal Bowel Sounds. absent: Tenderness - Rectal Exam Rectal Exam: Deferred Assessment and Plan (1) Sepsis Status: Acute (2) Fever Status: Acute (3) Seizure disorder Status: Acute (4) COPD (chronic obstructive pulmonary disease) Status: Chronic (5) PVD (peripheral vascular disease) Status: Chronic (6) Respiratory failure Status: Acute
[2017-09-17] MEDS: Micafungin 100 MG in Sodium Chloride 0.9% 100 ML IV SCH (17:41)
--- NOTE | 2017-09-17 23:08 | CP.PCM.PN ---
Subjective - Date & Time of Evaluation Date of Evaluation: 09/17/17 Time of Evaluation: 19:15 - Subjective Subjective: dictated Objective - Vital Signs/Intake and Output Vital Signs (last 24 hours): Temp Pulse Resp BP Pulse Ox 99.1 F 92 H 34 H 112/58 L 100 09/17/17 20:00 09/17/17 20:00 09/17/17 20:00 09/17/17 20:00 09/17/17 20:00 Intake and Output: 09/17/17 09/18/17 18:59 06:59 Intake Total 2400 Output Total 434 Balance 1966 - Medications Medications: Current Medications Acetaminophen (Tylenol 650mg/20.3ml Solution Ud) 650 mg PO Q6 PRN PRN Reason: Fever >100.4 F Last Admin: 09/15/17 20:23 Dose: 650 mg Albuterol/Ipratropium (Duoneb 3 Mg/0.5 Mg (3 Ml) Ud) 3 ml INH RQ6 [facility] Last Admin: 09/17/17 20:54 Dose: 3 ml Amantadine HCl (Symmetrel) 100 mg PO DAILY [facility] Last Admin: 09/17/17 09:24 Dose: 100 mg Ascorbic Acid (Vitamin C 500 Mg Tab) 500 mg PO DAILY [facility] Last Admin: 09/17/17 09:25 Dose: 500 mg Carbamazepine (Tegretol) 100 mg PEG Q8 [facility] Last Admin: 09/17/17 21:03 Dose: 100 mg Dextrose (Dextrose 50% Inj) 0 ml IV STAT PRN; Protocol PRN Reason: Hypoglycemia Protocol Last Admin: 09/14/17 06:12 Dose: 50 ml Finasteride (Proscar) 5 mg PO DAILY [facility] Last Admin: 09/17/17 09:23 Dose: 5 mg Heparin Sodium (Porcine) (Heparin) 5,000 units SC Q12 [facility] Last Admin: 09/17/17 21:02 Dose: 5,000 units Meropenem 500 mg/ Sodium (Chloride) 100 mls @ 100 mls/hr IVPB Q8H [facility] PRN Reason: Protocol Last Admin: 09/17/17 18:12 Dose: 100 mls/hr Vancomycin/Sodium Chloride (Vancomycin 1 Gm/Ns 200 Ml) 1 gm in 200 mls @ 133 mls/hr IVPB DAILY [facility] PRN Reason: Protocol Stop: 06/16/18 10:01 Last Admin: 09/17/17 09:24 Dose: 133 mls/hr Micafungin Sodium 100 mg/ (Sodium Chloride) 100 mls @ 100 mls/hr IV Q24H [facility] PRN Reason: Protocol Last Admin: 09/17/17 17:41 Dose: 100 mls/hr Metoclopramide HCl (Reglan) 10 mg IVP Q6H [facility] Last Admin: 09/17/17 18:12 Dose: 10 mg Metronidazole (Flagyl) 500 mg PEG TID [facility] PRN Reason: Protocol Last Admin: 09/17/17 18:12 Dose: 500 mg Midodrine (Proamatine) 5 mg PO TID [facility] Last Admin: 09/17/17 18:12 Dose: 5 mg Multivitamins/Vitamin C (Multi-Delyn Liquid) 5 ml PO DAILY [facility] Last Admin: 09/17/17 09:22 Dose: 5 ml Pantoprazole Sodium (Protonix Susp) 40 mg PO DAILY [facility] Last Admin: 09/17/17 09:24 Dose: 40 mg Rosuvastatin Calcium (Crestor) 5 mg PO HS [facility] Last Admin: 09/17/17 21:03 Dose: 5 mg Saccharomyces Boulardii (Florastor) 250 mg PO BID [facility] Last Admin: 09/17/17 18:12 Dose: 250 mg Valproate Sodium (Depakene Oral Soln) 250 mg PEG Q12 [facility] Last Admin: 09/17/17 21:03 Dose: 250 mg Zinc Sulfate (Zinc Sulfate 220 Mg Cap) 220 mg PO DAILY [facility] Last Admin: 09/17/17 09:57 Dose: 220 mg - Labs Labs: 09/17/17 08:44 09/17/17 08:44 PT 22.0 SECONDS (9.7-12.2) H 09/07/17 06:08 INR 2.0 09/07/17 06:08 APTT 43 SECONDS (21-34) H 09/07/17 06:08
[2017-09-18] MEDS: Albuterol-Ipratrop 3 mg / 0.5 (3 ml) UD INH SCH ×4 (00:59→19:56)
[2017-09-18] MEDS: Meropenem 500 MG in Sodium Chloride 0.9% 100 ML IVPB SCH ×3 (02:32→18:14)
--- NOTE | 2017-09-18 02:40 | PN ---
DATE: 09/17/2017 SUBJECTIVE: Mr. Aman Cordero was seen today 09/17/2017. The patient remains lethargic, has a trach and remains on the ventilator. He is unresponsive and has not improved clinically. However, his fevers have been contained with the antibiotics, he is on 4 antibiotics at this time. PHYSICAL EXAMINATION: VITAL SIGNS: T-max is 99.1, pulse 92, blood pressure 112/58, respirations are 34. GENERAL: He is unresponsive. HEENT: Eyes are closed. NECK: Trach present. LUNGS: Clear. HEART: S1 and S2 are regular. ABDOMEN: Has a PEG tube. Abdomen is soft and nontender. No guarding. No rigidity present. EXTREMITIES: Left leg has edema. Has a decubitus on the heel. On the right, he has AKA. IMPRESSION: He has chronic respiratory failure, fevers, and has heel ulcers and remains unresponsive on medications. The nurse told me that there is a POA and they are trying to get hospice from the POA at this time. We will continue antibiotics for now and I renewed Mycamine and vancomycin. Bladimir Muñoz MD
[2017-09-18] MEDS: carBAMazepine Chew Tab 100 MG Chew Tab PEG SCH ×3 (05:28→21:02)
[2017-09-18 06:23] LABS: BASO # 0.1 K/uL (0.0-0.2); BASO % 0.9 % (0.0-2.0); EOS % 0.1 % (0.0-4.0); HEMOGLOBIN 8.8 g/dL (12.0-18.0); LYMPH # 3.2 K/uL (1.0-4.3); LYMPH % 27.9 % (20.0-40.0); MEAN CELL VOLUME 89.5 fL (80.0-94.0); MEAN CORPUSCULAR HEMOGLOBIN 28.5 pg (27.0-31.0); MEAN CORPUSCULAR HGB CONC 31.9 g/dL (33.0-37.0); MEAN PLATELET VOLUME 9.5 fL (7.2-11.7); MONO # 2.3 K/uL (0.0-0.8); MONO % 19.8 % (0.0-10.0); NEUT # 5.9 K/uL (1.8-7.0); NEUT % 51.3 % (50.0-75.0); NRBC % 0.1 % (0.0-2.0); RBC 3.09 Mil/uL (4.40-5.90); WHITE BLOOD COUNT 11.6 K/uL (4.8-10.8)
[2017-09-18 06:44] LABS: ALB/GLOB RATIO 0.5 (1.0-2.1); ALBUMIN 2.3 g/dL (3.5-5.0); ALT/SGPT 17 U/L (21-72); AST/SGOT 52 U/L (17-59); BLOOD UREA NITROGEN 35 mg/dL (9-20); CALCIUM 6.7 mg/dl (8.6-10.4); GFR AFRICAN-AMERICAN > 60; GFR NON-AFRICAN AMERICAN > 60
[2017-09-18] MEDS: Vancomycin 1 gm/NS 200 ml 1 GM/200 ML BAG IVPB SCH (09:31)
[2017-09-18] MEDS: Pantoprazole 40 mg Susp UD PO SCH (09:31)
[2017-09-18] MEDS: Saccharomyces Boulardi 250 mg Cap PO SCH ×2 (09:31→17:18)
[2017-09-18] MEDS: Valproic Acid 250 mg/5 ml UD Cup PEG SCH ×2 (09:33→21:02)
[2017-09-18] MEDS: Multiple Vitamins Oral Solution PO SCH (09:33)
[2017-09-18] MEDS: Amantadine 50 mg/5 ml Syrup (473 ml) PO SCH (09:33)
--- NOTE | 2017-09-18 09:37 | CP.PCM.PN ---
Subjective - Date & Time of Evaluation Date of Evaluation: 09/18/17 Time of Evaluation: 09:35 - Subjective Subjective: Pulmonary Follow up Covering Dr. [place] The Patient was seen and examined at the bedside, Medical records reviewed, and management issues were discussed and formulated with the house staff. Events reviewed Remains orally intubated, mechanically vented, On PRVC: 40%Fi02, 14 RR, 400 TV, 5 PEEP Saturation 98-100% Remains lethargic Patient did not tolerate vent weaning trial today +Tachypnea + multiple skin pressure/wound + generalized weakness, edema with anasarca. Tolerating tube feeding Afebrile, copious amount of resp secretions Status post bronchoscopy Status post Tracheostomy 09/07 Awaiting paper work from power of tax attorney Initial plan for LTACH placement, but now family/power of tax attorney considering Hospice care Objective - Vital Signs/Intake and Output Vital Signs (last 24 hours): Temp Pulse Resp BP Pulse Ox 98.3 F 111 H 43 H 109/61 100 09/18/17 08:00 09/18/17 08:00 09/18/17 08:00 09/18/17 08:00 09/18/17 08:00 Intake and Output: 09/18/17 09/18/17 06:59 18:59 Intake Total 700 Output Total 200 Balance 500 - Medications Medications: Current Medications Acetaminophen (Tylenol 650mg/20.3ml Solution Ud) 650 mg PO Q6 PRN PRN Reason: Fever >100.4 F Last Admin: 09/15/17 20:23 Dose: 650 mg Albuterol/Ipratropium (Duoneb 3 Mg/0.5 Mg (3 Ml) Ud) 3 ml INH RQ6 [facility] Last Admin: 09/18/17 07:10 Dose: 3 ml Amantadine HCl (Symmetrel) 100 mg PO DAILY [facility] Last Admin: 09/18/17 09:33 Dose: 100 mg Ascorbic Acid (Vitamin C 500 Mg Tab) 500 mg PO DAILY [facility] Last Admin: 09/18/17 09:31 Dose: 500 mg Carbamazepine (Tegretol) 100 mg PEG Q8 [facility] Last Admin: 09/18/17 05:28 Dose: Not Given Dextrose (Dextrose 50% Inj) 0 ml IV STAT PRN; Protocol PRN Reason: Hypoglycemia Protocol Last Admin: 09/14/17 06:12 Dose: 50 ml Finasteride (Proscar) 5 mg PO DAILY [facility] Last Admin: 09/18/17 09:30 Dose: 5 mg Heparin Sodium (Porcine) (Heparin) 5,000 units SC Q12 [facility] Last Admin: 09/18/17 09:31 Dose: 5,000 units Meropenem 500 mg/ Sodium (Chloride) 100 mls @ 100 mls/hr IVPB Q8H [facility] PRN Reason: Protocol Last Admin: 09/18/17 02:32 Dose: 100 mls/hr Vancomycin/Sodium Chloride (Vancomycin 1 Gm/Ns 200 Ml) 1 gm in 200 mls @ 133 mls/hr IVPB DAILY [facility] PRN Reason: Protocol Stop: 09/18/17 10:01 Last Admin: 09/18/17 09:31 Dose: 133 mls/hr Micafungin Sodium 100 mg/ (Sodium Chloride) 100 mls @ 100 mls/hr IV Q24H [facility] PRN Reason: Protocol Last Admin: 09/17/17 17:41 Dose: 100 mls/hr Metoclopramide HCl (Reglan) 10 mg IVP Q6H [facility] Last Admin: 09/18/17 05:28 Dose: 10 mg Metronidazole (Flagyl) 500 mg PEG TID [facility] PRN Reason: Protocol Last Admin: 09/18/17 09:34 Dose: 500 mg Midodrine (Proamatine) 5 mg PO TID [facility] Last Admin: 09/18/17 09:33 Dose: 5 mg Multivitamins/Vitamin C (Multi-Delyn Liquid) 5 ml PO DAILY [facility] Last Admin: 09/18/17 09:33 Dose: 5 ml Pantoprazole Sodium (Protonix Susp) 40 mg PO DAILY [facility] Last Admin: 09/18/17 09:31 Dose: 40 mg Rosuvastatin Calcium (Crestor) 5 mg PO HS [facility] Last Admin: 09/17/17 21:03 Dose: 5 mg Saccharomyces Boulardii (Florastor) 250 mg PO BID [facility] Last Admin: 09/18/17 09:31 Dose: 250 mg Valproate Sodium (Depakene Oral Soln) 250 mg PEG Q12 [facility] Last Admin: 09/18/17 09:33 Dose: 250 mg Zinc Sulfate (Zinc Sulfate 220 Mg Cap) 220 mg PO DAILY [facility] Last Admin: 09/18/17 09:31 Dose: 220 mg - Labs Labs: 09/18/17 06:13 09/18/17 06:13 PT 22.0 SECONDS (9.7-12.2) H 09/07/17 06:08 INR 2.0 09/07/17 06:08 APTT 43 SECONDS (21-34) H 09/07/17 06:08 - Constitutional Appears: Well, Non-toxic, Other (Lethergic) - Head Exam Head Exam: ATRAUMATIC, NORMAL INSPECTION - Neck Exam Neck Exam: Full ROM - Respiratory Exam Respiratory Exam: Decreased Breath Sounds, Prolonged Expiratory Phase. absent: Accessory Muscle Use, Chest Wall Tenderness, Rales, Rhonchi, Wheezes, Respiratory Distress - Cardiovascular Exam Cardiovascular Exam: RRR, +S1, +S2. absent: JVD - GI/Abdominal Exam GI & Abdominal Exam: Soft, Normal Bowel Sounds. absent: Distended, Firm, Guarding, Rigid Assessment and Plan (1) Respiratory failure Status: Acute (2) Pneumonia Status: Acute (3) COPD (chronic obstructive pulmonary disease) Status: Chronic (4) Sepsis Status: Acute (5) Failure to thrive Status: Acute
[2017-09-18] MEDS: Micafungin 100 MG in Sodium Chloride 0.9% 100 ML IV SCH (15:35)
--- NOTE | 2017-09-19 00:50 | CP.PCM.PN ---
Subjective - Date & Time of Evaluation Date of Evaluation: 09/18/17 Time of Evaluation: 18:00 - Subjective Subjective: The Patient was seen and examined at the bedside Objective - Vital Signs/Intake and Output Vital Signs (last 24 hours): Temp Pulse Resp BP Pulse Ox 98.4 F 87 20 86/42 L 96 09/19/17 00:00 09/19/17 00:00 09/19/17 00:00 09/19/17 00:00 09/19/17 00:00 Intake and Output: 09/18/17 09/19/17 18:59 06:59 Intake Total 1550 Output Total 150 Balance 1400 - Medications Medications: Current Medications Acetaminophen (Tylenol 650mg/20.3ml Solution Ud) 650 mg PO Q6 PRN PRN Reason: Fever >100.4 F Last Admin: 09/15/17 20:23 Dose: 650 mg Albuterol/Ipratropium (Duoneb 3 Mg/0.5 Mg (3 Ml) Ud) 3 ml INH RQ6 [facility] Last Admin: 09/18/17 19:56 Dose: 3 ml Ascorbic Acid (Vitamin C 500 Mg Tab) 500 mg PO DAILY [facility] Last Admin: 09/18/17 09:31 Dose: 500 mg Carbamazepine (Tegretol) 100 mg PEG Q8 [facility] Last Admin: 09/18/17 21:02 Dose: 100 mg Dextrose (Dextrose 50% Inj) 0 ml IV STAT PRN; Protocol PRN Reason: Hypoglycemia Protocol Last Admin: 09/14/17 06:12 Dose: 50 ml Finasteride (Proscar) 5 mg PO DAILY [facility] Last Admin: 09/18/17 09:30 Dose: 5 mg Heparin Sodium (Porcine) (Heparin) 5,000 units SC Q12 [facility] Last Admin: 09/18/17 21:04 Dose: 5,000 units Meropenem 500 mg/ Sodium (Chloride) 100 mls @ 100 mls/hr IVPB Q8H [facility] PRN Reason: Protocol Last Admin: 09/18/17 18:14 Dose: 100 mls/hr Micafungin Sodium 100 mg/ (Sodium Chloride) 100 mls @ 100 mls/hr IV Q24H [facility] PRN Reason: Protocol Last Admin: 09/18/17 15:35 Dose: 100 mls/hr Vancomycin HCl 1 gm/ Sodium (Chloride) 200 mls @ 133.333 mls/hr IVPB Q24H [facility] PRN Reason: Protocol Metoclopramide HCl (Reglan) 10 mg IVP Q6H [facility] Last Admin: 09/18/17 17:18 Dose: 10 mg Metronidazole (Flagyl) 500 mg PEG TID [facility] PRN Reason: Protocol Last Admin: 09/18/17 17:18 Dose: 500 mg Midodrine (Proamatine) 5 mg PO TID [facility] Last Admin: 09/18/17 17:18 Dose: 5 mg Multivitamins/Vitamin C (Multi-Delyn Liquid) 5 ml PO DAILY [facility] Last Admin: 09/18/17 09:33 Dose: 5 ml Pantoprazole Sodium (Protonix Susp) 40 mg PO DAILY [facility] Last Admin: 09/18/17 09:31 Dose: 40 mg Rosuvastatin Calcium (Crestor) 5 mg PO HS [facility] Last Admin: 09/18/17 21:02 Dose: 5 mg Saccharomyces Boulardii (Florastor) 250 mg PO BID [facility] Last Admin: 09/18/17 17:18 Dose: 250 mg Valproate Sodium (Depakene Oral Soln) 250 mg PEG Q12 [facility] Last Admin: 09/18/17 21:02 Dose: 250 mg Zinc Sulfate (Zinc Sulfate 220 Mg Cap) 220 mg PO DAILY [facility] Last Admin: 09/18/17 09:31 Dose: 220 mg - Labs Labs: 09/18/17 06:13 09/18/17 06:13 PT 22.0 SECONDS (9.7-12.2) H 09/07/17 06:08 INR 2.0 09/07/17 06:08 APTT 43 SECONDS (21-34) H 09/07/17 06:08 Assessment and Plan (1) Sepsis Status: Acute (2) Fever Status: Acute (3) Seizure disorder Status: Acute (4) COPD (chronic obstructive pulmonary disease) Status: Chronic (5) PVD (peripheral vascular disease) Status: Chronic (6) Respiratory failure Status: Acute
[2017-09-19] MEDS: Meropenem 500 MG in Sodium Chloride 0.9% 100 ML IVPB SCH ×3 (03:16→18:10)
[2017-09-19] MEDS: Albuterol-Ipratrop 3 mg / 0.5 (3 ml) UD INH SCH ×4 (03:29→20:21)
[2017-09-19] MEDS: carBAMazepine Chew Tab 100 MG Chew Tab PEG SCH ×3 (05:43→13:02)
[2017-09-19] MEDS: Vancomycin 1 GM in Sodium Chloride 0.9% 200 ML IVPB SCH (09:00)
[2017-09-19] MEDS: Valproic Acid 250 mg/5 ml UD Cup PEG SCH ×2 (09:46→21:12)
[2017-09-19] MEDS: Multiple Vitamins Oral Solution PO SCH (09:46)
[2017-09-19] MEDS: Pantoprazole 40 mg Susp UD PO SCH (09:47)
[2017-09-19] MEDS: Saccharomyces Boulardi 250 mg Cap PO SCH ×2 (09:48→17:29)
[2017-09-19 12:36] LABS: BASO # 0.1 K/uL (0.0-0.2); BASO % 0.5 % (0.0-2.0); EOS % 0.3 % (0.0-4.0); LYMPH # 2.2 K/uL (1.0-4.3); LYMPH % 19.5 % (20.0-40.0); MEAN CELL VOLUME 89.5 fL (80.0-94.0); MEAN CORPUSCULAR HEMOGLOBIN 28.3 pg (27.0-31.0); MEAN CORPUSCULAR HGB CONC 31.6 g/dL (33.0-37.0); MEAN PLATELET VOLUME 9.5 fL (7.2-11.7); MONO # 1.7 K/uL (0.0-0.8); MONO % 14.7 % (0.0-10.0); NEUT # 7.4 K/uL (1.8-7.0); NRBC % 0.2 % (0.0-2.0); RBC 2.47 Mil/uL (4.40-5.90); RED CELL DISTRIBUTION WIDTH 19.4 % (11.5-14.5); WHITE BLOOD COUNT 11.3 K/uL (4.8-10.8)
[2017-09-19 13:07] LABS: ALB/GLOB RATIO 0.4 (1.0-2.1); ALBUMIN 1.8 g/dL (3.5-5.0); ALT/SGPT 19 U/L (21-72); AST/SGOT 43 U/L (17-59); BLOOD UREA NITROGEN 43 mg/dL (9-20); CALCIUM 5.9 mg/dl (8.6-10.4); GFR AFRICAN-AMERICAN > 60; GFR NON-AFRICAN AMERICAN 59
[2017-09-19] MEDS: Micafungin 100 MG in Sodium Chloride 0.9% 100 ML IV SCH (15:23)
[2017-09-20] MEDS: Albuterol-Ipratrop 3 mg / 0.5 (3 ml) UD INH SCH ×3 (01:13→14:14)
[2017-09-20] MEDS: Meropenem 500 MG in Sodium Chloride 0.9% 100 ML IVPB SCH ×2 (03:11→11:19)
[2017-09-20 05:46] LABS: BASO % 0.3 % (0.0-2.0); EOS % 0.3 % (0.0-4.0); HEMOGLOBIN 7.9 g/dL (12.0-18.0); LYMPH # 2.4 K/uL (1.0-4.3); LYMPH % 19.4 % (20.0-40.0); MEAN CELL VOLUME 92.1 fL (80.0-94.0); MEAN CORPUSCULAR HEMOGLOBIN 29.3 pg (27.0-31.0); MEAN CORPUSCULAR HGB CONC 31.8 g/dL (33.0-37.0); MEAN PLATELET VOLUME 9.9 fL (7.2-11.7); MONO # 1.4 K/uL (0.0-0.8); MONO % 11.7 % (0.0-10.0); NEUT # 8.4 K/uL (1.8-7.0); NEUT % 68.3 % (50.0-75.0); NRBC % 0.3 % (0.0-2.0); RBC 2.69 Mil/uL (4.40-5.90); RED CELL DISTRIBUTION WIDTH 20.4 % (11.5-14.5); WHITE BLOOD COUNT 12.4 K/uL (4.8-10.8)
[2017-09-20 06:19] LABS: ALB/GLOB RATIO 0.5 (1.0-2.1); ALBUMIN 2.1 g/dL (3.5-5.0); CALCIUM 6.7 mg/dl (8.6-10.4)
[2017-09-20] MEDS: Multiple Vitamins Oral Solution PO SCH (09:53)
[2017-09-20] MEDS: Valproic Acid 250 mg/5 ml UD Cup PEG SCH (09:53)
[2017-09-20] MEDS: carBAMazepine Chew Tab 100 MG Chew Tab PEG SCH ×2 (09:54→11:25)
[2017-09-20] MEDS: Pantoprazole 40 mg Susp UD PO SCH (09:57)
[2017-09-20] MEDS ORDERED: carBAMazepine 100 mg/5 ml Oral Susp (450 ml) PEG SCH (10:00)
[2017-09-20] MEDS: Saccharomyces Boulardi 250 mg Cap PO SCH (10:41)
[2017-09-20] MEDS: Vancomycin 1 GM in Sodium Chloride 0.9% 200 ML IVPB SCH (13:00)
[2017-09-20 13:22] VITALS: TEMP 99.6
[2017-09-20] MEDS ORDERED: Micafungin 100 MG in Sodium Chloride 0.9% 100 ML IV SCH (16:00)
--- NOTE | 2017-09-20 16:36 | CP.PCM.PRO ---
Pronouncement of Note - Clinical Findings Physical Exam: No Response Verbal/Painful Stimuli, Absent Heart & Breath Sounds , No Pupillary Light Reflex, Pupils Fixed & Dilated, Absence of Vital Signs - Pronouncement Time Time of Pronouncement of : 16:24 - Notifications Pronouncement Notifications: Family Notified, Atending Notified Airplane Pilot Crop Dusting Notified: No - Shayla Certificate [place] Number: [id number] Additional Comments: Patient seen and examined. No breath sounds, pulses, heartbeats or response to eye stimuli present at this time. Guardian and attending physician notified.
[2017-09-20 17:04] VITALS: BP 72/42; PULSE 42; RESP 25; O2SAT 92
[2017-09-20] MEDS ORDERED: Meropenem 500 MG in Sodium Chloride 0.9% 100 ML IVPB SCH (19:00)
--- NOTE | 2017-09-20 23:58 | CP.PCM.DIS ---
Provider - Provider Date of Admission: 08/24/17 14:03 Attending physician: Lele Ann MD Time Spent in preparation of Discharge (in minutes): 45 Diagnosis - Discharge Diagnosis (1) Sepsis Status: Acute (2) Fever Status: Acute (3) Seizure disorder Status: Acute (4) COPD (chronic obstructive pulmonary disease) Status: Chronic Priority: High (5) PVD (peripheral vascular disease) Status: Chronic (6) Respiratory failure Status: Acute Hospital Course - Lab Results Lab Results: Micro Results 09/02/17 14:09 Other: Please Indicate Mycobacterial Culture - Preliminary 09/02/17 14:09 Bronchial Washings Fungal Culture - Final Simin Albicans 09/10/17 22:32 Foot - Left Gram Stain - Final 09/10/17 22:32 Foot - Left Wound Culture - Final No growth. 09/08/17 12:57 Blood-Venous Blood Culture - Final NO GROWTH AFTER 5 DAYS 09/08/17 12:57 Blood-Venous Gram Stain - Final TEST NOT PERFORMED 09/08/17 12:57 Blood-Venous Blood Culture - Final NO GROWTH AFTER 5 DAYS 09/08/17 12:57 Blood-Venous Gram Stain - Final TEST NOT PERFORMED 09/06/17 14:00 Blood-Thru Central Line Blood Culture - Final NO GROWTH AFTER 5 DAYS 09/06/17 14:00 Blood-Thru Central Line Gram Stain - Final TEST NOT PERFORMED 09/06/17 14:00 Blood-Thru Central Line Blood Culture - Final NO GROWTH AFTER 5 DAYS 09/06/17 14:00 Blood-Thru Central Line Gram Stain - Final TEST NOT PERFORMED 09/08/17 17:31 Trachasp Gram Stain - Final 09/08/17 17:31 Trachasp Sputum Culture - Final No growth. 09/02/17 07:46 Other: Please Indicate Mycobacterial Culture - Preliminary 09/08/17 12:57 Urine,Brown Urine Culture - Final No Growth (<1,000 CFU/ML) 09/06/17 12:09 Sputum Gram Stain - Final 09/06/17 12:09 Sputum Sputum Culture - Final NORMAL ORAL MELISSA 09/06/17 12:09 Urine,Brown Urine Culture - Final No Growth (<1,000 CFU/ML) 08/31/17 10:00 Blood Blood Culture - Final NO GROWTH AFTER 5 DAYS 08/31/17 10:00 Blood Gram Stain - Final TEST NOT PERFORMED 08/31/17 10:30 Blood Blood Culture - Final NO GROWTH AFTER 5 DAYS 08/31/17 10:30 Blood Gram Stain - Final TEST NOT PERFORMED 09/02/17 12:51 Bronchial Washings Bronchial Culture - Final NORMAL SAPROPHYTIC MELISSA 08/31/17 11:00 Sputum Gram Stain - Final 08/31/17 11:00 Sputum Sputum Culture - Final NORMAL ORAL MELISSA 08/31/17 07:29 Urine,Catheterized Urine Culture - Final No Growth (<1,000 CFU/ML) 08/28/17 11:50 Trachasp Gram Stain - Final 08/28/17 11:50 Trachasp Sputum Culture - Final NORMAL ORAL MELISSA 08/24/17 13:31 Blood Blood Culture - Final NO GROWTH AFTER 5 DAYS 08/24/17 13:31 Blood Gram Stain - Final TEST NOT PERFORMED 08/24/17 13:31 Blood Blood Culture - Final NO GROWTH AFTER 5 DAYS 08/24/17 13:31 Blood Gram Stain - Final TEST NOT PERFORMED 08/25/17 18:46 Trachasp Gram Stain - Final 08/25/17 18:46 Trachasp Sputum Culture - Final NORMAL ORAL MELISSA 08/25/17 14:28 Ankle - Left Gram Stain - Final 08/25/17 14:28 Ankle - Left Wound Culture - Final Coagulase Neg Staphylococcus 08/24/17 17:51 Nose MRSA Culture (Admit) - Final MRSA NOT DETECTED 08/24/17 12:43 Urine Urine Culture - Final No Growth (<1,000 CFU/ML) Most Recent Lab Values WBC 12.4 K/uL (4.8-10.8) H 09/20/17 05:37 RBC 2.69 Mil/uL (4.40-5.90) L 09/20/17 05:37 Hgb 7.9 g/dL (12.0-18.0) L 09/20/17 05:37 Hct 24.8 % (35.0-51.0) L 09/20/17 05:37 MCV 92.1 fL (80.0-94.0) D 09/20/17 05:37 MCH 29.3 pg (27.0-31.0) 09/20/17 05:37 MCHC 31.8 g/dL (33.0-37.0) L 09/20/17 05:37 RDW 20.4 % (11.5-14.5) H 09/20/17 05:37 Plt Count 205 K/uL (130-400) 09/20/17 05:37 MPV 9.9 fL (7.2-11.7) 09/20/17 05:37 Neut % (Auto) 68.3 % (50.0-75.0) 09/20/17 05:37 Lymph % (Auto) 19.4 % (20.0-40.0) L 09/20/17 05:37 [place] % (Auto) 11.7 % (0.0-10.0) H 09/20/17 05:37 Eos % (Auto) 0.3 % (0.0-4.0) 09/20/17 05:37 Baso % (Auto) 0.3 % (0.0-2.0) 09/20/17 05:37 Neut # (Auto) 8.4 K/uL (1.8-7.0) H 09/20/17 05:37 Lymph # (Auto) 2.4 K/uL (1.0-4.3) 09/20/17 05:37 [place] # (Auto) 1.4 K/uL (0.0-0.8) H 09/20/17 05:37 Eos # (Auto) 0.0 K/uL (0.0-0.7) 09/20/17 05:37 Baso # (Auto) 0.0 K/uL (0.0-0.2) 09/20/17 05:37 Neutrophils % (Manual) 46 % (50-75) L 09/17/17 08:44 Band Neutrophils % 2 % (0-2) 09/17/17 08:44 Lymphocytes % (Manual) 30 % (20-40) 09/17/17 08:44 Reactive Lymphs % 1 % (0-0) H 09/17/17 08:44 Monocytes % (Manual) 21 % (0-10) H 09/17/17 08:44 Eosinophils % (Manual) 1 % (0-4) 09/16/17 06:24 Metamyelocytes % 1 % (0-0) H 08/30/17 05:22 Nucleated RBC % 1 % (0-0) H 09/08/17 06:14 Toxic Granulation Present 09/16/17 06:24 Platelet Estimate Normal (NORMAL) 09/17/17 08:44 Plt Clumps, EDTA Present 09/11/17 06:29 Large Platelets Present 09/15/17 06:07 Giant Platelets Present 09/06/17 06:16 Polychromasia Slight 09/13/17 06:11 Hypochromasia (manual) Slight 09/17/17 08:44 Poikilocytosis (manual Slight 09/17/17 08:44 Anisocytosis (manual) Slight 09/17/17 08:44 Microcytosis (manual) Slight 09/16/17 06:24 Macrocytosis (manual) Slight 09/12/17 06:10 Spherocytes Slight 09/12/17 06:10 Target Cells Slight 09/16/17 06:24 Ovalocytes Slight 09/12/17 06:10 [place] Cells Slight 09/15/17 06:07 PT 22.0 SECONDS (9.7-12.2) H 09/07/17 06:08 INR 2.0 09/07/17 06:08 APTT 43 SECONDS (21-34) H 09/07/17 06:08 Puncture Site R rad 09/13/17 06:23 pCO2 32 mm/Hg (35-45) L 09/13/17 06:23 pO2 102 mm/Hg (80-100) H 09/13/17 06:23 HCO3 19.9 mmol/L (21-28) L 09/13/17 06:23 ABG pH 7.36 (7.35-7.45) 09/13/17 06:23 ABG Total CO2 19.1 mmol/L (22-28) L 09/13/17 06:23 ABG O2 Saturation 100.3 % (95-98) H 09/13/17 06:23 ABG Base Excess -6.5 mmol/L (-2.0-3.0) L 09/13/17 06:23 ABG Hemoglobin 9.5 g/dL (11.7-17.4) L 09/13/17 06:23 ABG Carboxyhemoglobin 2.4 % (0.5-1.5) H 09/13/17 06:23 POC ABG HHb (Measured) -0.3 % (0.0-5.0) L 09/13/17 06:23 ABG Methemoglobin 1.4 % (0.0-3.0) 09/13/17 06:23 [place] Test Pos 09/13/17 06:23 ABG Potassium 2.9 mmol/L (3.6-5.2) L 08/29/17 05:37 VBG pH 7.44 (7.32-7.43) H 08/24/17 12:43 VBG pCO2 37 mmHg (40-60) L 08/24/17 12:43 VBG HCO3 25.3 mmol/L 08/24/17 12:43 VBG Total CO2 26.2 mmol/L (22-28) 08/24/17 12:43 VBG O2 Sat (Calc) 81.7 % (40-65) H 08/24/17 12:43 VBG Base Excess 1.1 mmol/L (0.0-2.0) 08/24/17 12:43 VBG Potassium 3.9 mmol/L (3.6-5.2) 08/24/17 12:43 A-a O2 Difference 143.0 mm/Hg 09/13/17 06:23 Respiratory Index 1.4 09/13/17 06:23 Hgb O2 Saturation 96.6 % (95.0-98.0) 09/13/17 06:23 Sodium 142.0 mmol/l (132-148) 08/29/17 05:37 Chloride 113.0 mmol/L (98-107) H 08/29/17 05:37 Glucose 129 mg/dl (75-110) H 08/29/17 05:37 Lactate 2.4 mmol/L (0.7-2.1) H 08/29/17 05:37 Vent Mode Prvc 09/13/17 06:23 Mechanical Rate 15 09/13/17 06:23 FiO2 40.0 % 09/13/17 06:23 Tidal Volume 400 09/13/17 06:23 PEEP 5 09/13/17 06:23 Crit Value Called To Krupa rn 08/26/17 05:17 Crit Value Called By Mary equipment tech 08/26/17 05:17 Crit Value Read Back Y 08/26/17 05:17 Blood Gas Notified Time 542 08/26/17 05:17 Sodium 148 mmol/L (132-148) 09/20/17 05:38 Potassium 4.8 mmol/L (3.6-5.2) 09/20/17 05:38 Chloride 118 mmol/L (98-107) H 09/20/17 05:38 Carbon Dioxide 15 mmol/L (22-30) L 09/20/17 05:38 Anion Gap 20 (10-20) 09/20/17 05:38 BUN 54 mg/dL (9-20) H 09/20/17 05:38 Creatinine 1.6 mg/dL (0.8-1.5) H 09/20/17 05:38 Est GFR ( Amer) 51 09/20/17 05:38 Est GFR (Non-Af Amer) 42 09/20/17 05:38 POC Glucose (mg/dL) 109 mg/dL (65-110) 09/20/17 11:46 Random Glucose 106 mg/dL (75-110) 09/20/17 05:38 Calcium 6.7 mg/dl (8.6-10.4) L 09/20/17 05:38 Phosphorus 6.8 mg/dL (2.5-4.5) H 09/20/17 05:38 Magnesium 2.2 mg/dL (1.6-2.3) 09/20/17 05:38 Iron 10 ug/dL (49-181) L 09/09/17 09:52 TIBC 112 ug/dL (250-450) L 09/09/17 09:52 % Saturation 8.92 (20-55) L 09/09/17 09:52 Ferritin 472.0 ng/mL 09/09/17 09:52 Total Bilirubin 4.8 mg/dL (0.2-1.3) H 09/20/17 05:38 AST 66 U/L (17-59) H D 09/20/17 05:38 ALT 19 U/L (21-72) L 09/20/17 05:38 Alkaline Phosphatase 68 U/L (38-126) 09/20/17 05:38 Ammonia 11 umol/L (9-33) 08/27/17 11:32 Total Protein 6.6 g/dL (6.3-8.3) 09/20/17 05:38 Albumin 2.1 g/dL (3.5-5.0) L 09/20/17 05:38 Globulin 4.5 gm/dL (2.2-3.9) H 09/20/17 05:38 Albumin/Globulin Ratio 0.5 (1.0-2.1) L 09/20/17 05:38 Procalcitonin 4.19 NG/ML (0.19-0.49) H 09/02/17 15:41 Arterial Blood Potassium 2.9 mmol/L (3.6-5.2) L 08/29/17 05:37 Venous Blood Potassium 3.9 mmol/L (3.6-5.2) 08/24/17 12:43 Urine Color Nay (YELLOW) 09/06/17 12:09 Urine Clarity Clear (Clear) 09/06/17 12:09 Urine pH 6.0 (5.0-8.0) 09/06/17 12:09 Ur Specific [place] 1.017 (1.003-1.030) 09/06/17 12:09 Urine Protein 2+ mg/dL (NEGATIVE) H 09/06/17 12:09 Urine Glucose (UA) Normal mg/dL (Normal) 09/06/17 12:09 Urine Ketones Negative mg/dL (NEGATIVE) 09/06/17 12:09 Urine Blood Negative (NEGATIVE) 09/06/17 12:09 Urine Nitrate Negative (NEGATIVE) 09/06/17 12:09 Urine Bilirubin Negative (NEGATIVE) 09/06/17 12:09 Urine Urobilinogen Normal mg/dL (0.2-1.0) 09/06/17 12:09 Ur Leukocyte Esterase Neg Hui/uL (Negative) 09/06/17 12:09 Urine WBC (Auto) 4 /hpf (0-5) 09/06/17 12:09 Urine RBC (Auto) 8 /hpf (0-3) H 09/06/17 12:09 Ur Squamous Epith Cells < 1 /hpf (0-5) 09/06/17 12:09 Urine Bacteria Rare (<OCC) 09/06/17 12:09 Stool Occult Blood Negative (NEGATIVE) 09/02/17 15:41 Vancomycin Trough 20.2 ug/mL (5.0-10.0) H 09/16/17 06:24 Random Vancomycin 30.3 ug/mL 09/20/17 05:38 Valproic Acid < 10.0 ug/mL (50.0-100.0) L 09/16/17 06:24 Carbamazepine 14.8 ug/mL (4.0-12.0) H 09/17/17 08:44 C. difficile Ag & Toxin Negative (NEGATIVE) 09/08/17 14:47 Histoplasma Ab Imm Diff Negative (Negative) 09/01/17 19:16 Histop Galactomannan Ag <0.5 ng/mL 09/01/17 19:16 Mycoplasma pneumon IgM Positive (NEGATIVE) H 08/27/17 05:55 Aspergillus Antigen Not detected (Not Detected) 09/01/17 07:25 Aspergillus flavus Ab Negative (Negative) 09/01/17 07:23 Aspergill fumigatus Ab Negative (Negative) 09/01/17 07:23 Aspergillus niger Ab Negative (Negative) 09/01/17 07:23 Aspergillus Index Value 0.13 (<0.50) 09/01/17 07:25 TB Test (QFT) Nil 0.09 IU/mL 09/02/17 07:29 TB Test Mitogen - Nil <0.00 IU/mL 09/02/17 07:29 TB Test TB - Nil 0.01 IU/mL 09/02/17 07:29 TB Test (QFT) Indeterminate (Negative) H 09/02/17 07:29 Blood Type O POSITIVE 09/12/17 12:59 Antibody Screen Negative 09/12/17 12:59 Discharge Exam - Head Exam Head Exam: ATRAUMATIC, NORMAL INSPECTION Discharge Plan - Follow Up Plan Condition: GOOD Disposition: WITH WITHOUT AUTOPSY
--- NOTE | 2017-09-21 09:59 | PN ---
DATE: 09/19/2017 SUBJECTIVE: The patient was seen and examined at bedside on 09/19/2017. This is Dr. Lele Ann's patient. I was covering him. The patient was seen and examined at bedside. Medical record reviewed. Remains intubated. Mechanically ventilated. Remains lethargic. The patient did not tolerate vent weaning trial, still has tachypnea, multiple skin pressure wounds. Generalized weak, edema with anasarca. Tolerating tube feeding. No fever. Still waiting for paperwork of power of trademark attorney. Family is considering about hospice. PHYSICAL EXAMINATION: VITAL SIGNS: Temperature 98.3, pulse 111, respiratory rate 43, blood pressure 109/61, pulse oximetry 100. HEENT: Head normocephalic and atraumatic. Eyes closed. Nose patent. Mucous membrane moist. NECK: Supple. No carotid bruits. No thyromegaly. HEART: S1, S2 positive. RRR. LUNGS: Decreased breath sounds. Prolonged expiratory phase. ABDOMEN: Soft. Bowel sounds are positive. EXTREMITIES: No edema. No cyanosis. NEUROLOGIC: We cannot do neurological examination because the patient is sleepy. LABORATORY DATA: White blood is 11.6, hemoglobin 8.8, hematocrit 27.7, platelets 287. Sodium 149, potassium 4.4, BUN 35, creatinine 1.1, glucose 122. ASSESSMENT AND PLAN: The patient is a 77-year-old male with leukocytosis, anemia, hypernatremia, hyperchloremia, hyperglycemia, has respiratory failure, pneumonia, COPD, sepsis, failure to thrive. Review of pairing machine operator's notes and easily plan was for long-term acute care hospital placement, but no family and power of trademark attorney considering hospice care; waiting for workup of power of trademark attorney. Status post tracheostomy, status post bronchoscopy. Now continue same treatment, vent followup. We will follow up. Gloria Langston MD MTDLeona
--- NOTE | 2017-09-29 04:30 | OP ---
PROCEDURE DATE: 09/02/2017 PROCEDURE: Fiberoptic bronchoscopy with bronchoalveolar lavage. REASON FOR PROCEDURE: Pneumonia, respiratory failure, and right lung collapse. Fiberoptic bronchoscopy procedure was done. DESCRIPTION OF PROCEDURE: After obtaining consent, the bronchoscope was passed through the ET tube into the trachea. Purulent secretions noted, which was suctioned out. First, the bronchoscope was passed into the left side. Minimal amount of purulent secretions noted, which was suctioned out. The bronchoscope was passed on the right side. The right upper, the right lower, and middle, copious amount of secretions were suctioned out. Bronchoalveolar lavage was done from the right upper lobe, and there was mucosal edema noted. The patient tolerated the procedure well. No complications. Giovanni Washington MD
== END 2017-09-20 16:42 | DRG 853 ==
LOC: C.ER 11:24 → C.9I 14:03
PROVIDERS: ADMIT Internal Medicine; ATTEND Internal Medicine
PROC: 5A1955Z Respiratory Ventilation, Greater than 96 Consecutive Hours (ICD-10-PCS; principal; 2017-08-24)
PROC: 0BH17EZ Insertion of Endotracheal Airway into Trachea, Via Natural or Artificial Opening (ICD-10-PCS; 2017-08-24)
PROC: 02HV33Z Insertion of Infusion Device into Superior Vena Cava, Percutaneous Approach (ICD-10-PCS; 2017-08-24)
PROC: 0B9C8ZX Drainage of Right Upper Lung Lobe, Via Natural or Artificial Opening Endoscopic, Diagnostic (ICD-10-PCS; 2017-09-02)
PROC: 02HV33Z Insertion of Infusion Device into Superior Vena Cava, Percutaneous Approach (ICD-10-PCS; 2017-09-06)
PROC: 0B21XFZ Change Tracheostomy Device in Trachea, External Approach (ICD-10-PCS; 2017-09-07)
PROC: 0BJ08ZZ Inspection of Tracheobronchial Tree, Via Natural or Artificial Opening Endoscopic (ICD-10-PCS; 2017-09-07)
PROC: 30233N1 Transfusion of Nonautologous Red Blood Cells into Peripheral Vein, Percutaneous Approach (ICD-10-PCS; 2017-09-07)
DX: A41.9 Sepsis, unspecified organism (principal); G92 Toxic encephalopathy; J96.21 Acute and chronic respiratory failure with hypoxia; J15.7 Pneumonia due to Mycoplasma pneumoniae; E87.0 Hyperosmolality and hypernatremia; L03.115 Cellulitis of right lower limb; Z99.11 Dependence on respirator [ventilator] status; L97.429 Non-pressure chronic ulcer of left heel and midfoot with unspecified severity; J98.11 Atelectasis; B95.8 Unspecified staphylococcus as the cause of diseases classified elsewhere; D64.9 Anemia, unspecified; E11.649 Type 2 diabetes mellitus with hypoglycemia without coma; Z79.4 Long term (current) use of insulin; E78.5 Hyperlipidemia, unspecified; E87.6 Hypokalemia; E83.51 Hypocalcemia; F03.90 Unspecified dementia, unspecified severity, without behavioral disturbance, psychotic disturbance, mood disturbance, and anxiety; G40.909 Epilepsy, unspecified, not intractable, without status epilepticus; I10 Essential (primary) hypertension; K52.9 Noninfective gastroenteritis and colitis, unspecified; L89.159 Pressure ulcer of sacral region, unspecified stage; R62.7 Adult failure to thrive; R65.20 Severe sepsis without septic shock; E11.622 Type 2 diabetes mellitus with other skin ulcer; Z86.73 Personal history of transient ischemic attack (TIA), and cerebral infarction without residual deficits; Z51.5 Encounter for palliative care